=== PATIENT | female | born 1940 | race Caucasian/White ===

== ENCOUNTER 2018-02-01 15:40 | Emergency (ER) | payer MEDICARE, SELFPAY ==
[2018-02-01 15:42] VITALS: BP 210/100; PULSE 83; RESP 17; TEMP 37; O2SAT 97; BMI 40.8
--- NOTE | 2018-02-01 16:09 | EKG12_ITS ---
Test Reason : CHESTPAIN Blood Pressure : / mmHG Vent. Rate : 077 BPM Atrial Rate : 077 BPM P-R Int : 168 ms QRS Dur : 078 ms QT Int : 380 ms P-R-T Axes : 035 011 001 degrees QTc Int : 430 ms Normal sinus rhythm Normal ECG Confirmed by HEMA ACOSTA, UMM ([id number]), content editor YAS WEAVER ([id number]) on 02/04/2018 3:12:34 PM Referred By: Confirmed By:UMM GARRIDO MD
[2018-02-01 16:15] VITALS: O2SAT 98
[2018-02-01] MEDS: hydrALAZINE 20 MG/ML Vial 10 MG IV (16:23)
--- NOTE | 2018-02-01 16:23 | ED.DCSUM_ITS ---
- ER Visit Summary Date of Service: 02/01/18 Chief Complaint: Chest pain History of Present Illness: The patient is a 77 F who states that she has had intermittent left-sided chest pain for several weeks. She describes it as occasionally burning and sharp radiating into the left shoulder down the arm. Sometimes into the back. When it peaks in its intensity it makes her chest sore to touch. She states that today she needed to babysit her great grandchildren and needed to be there at 0530 hours. She states it is very stressful for her. She states all of her daughter who could relieve her she try to get hold of her granddaughter eventually came to the house and got the kids states that she yelled at her for coming to get her children. Since coming to the emergency department she notes she has been very tearful and the pain has gotten better. She tells me she is worked 19 of the last 21 days. She states that she typically has to get up at 3 AM and does not get home again until almost 8 or 9 at night. She was very concerned about this pain because she lives alone. She has had prior stress testing in 2014 and 2016. Recently diagnosed with some aortic stenosis on echo. Physical Examination: Afebrile noted hypertension 210/100 Gen: Well-nourished well-developed obese Head: Normocephalic atraumatic Eyes: Perrl EOMI ENT: TMs clear no rhinorrhea moist mucous membranes Neck: Supple no lymphadenopathy no JVD nontender CVS: Regular rate rhythm no murmurs normal S1-S2 Respiratory: No distress clear to auscultation bilaterally anterior left chest wall tenderness which she states is similar to some of the discomfort she was having. Abdomen: Soft nontender nondistended normal bowel sounds no masses Back: Nontender Extremity: Nontender no edema Skin: Normal color no rash Neuro: alert orientated ?3 CN II-XII intact normal strength sensation reflexes gait cerebellar Psych: Tearful and upset Test Results: EKG showed a normal sinus rhythm that appears unchanged from June 30, 2016. CBC BMP negative. Troponin [address] Bhavya of the chest was negative for PE or dissection. Emergency Department Course and Treatment: UNIQUE score 2. Patient received hydralazine for hypertension. Blood pressure is down to 158/72. She feels significantly better. I advised her that she needs to take time for herself this weekend and rest. I advised her to avoid stressful situations and do things that would be relaxing to her. I have asked that she follow-up with her doctor next week. Please return if worsening or concerns Impression: 1. Hypertensive urgency 2. Chest pain This note was generated with [employer] dictation software. It may contain incorrect words, spelling, and punctuation that were not noted in review of the chart prior to signing ED Disposition - Plan for ED Patient: Chief Complaint: Chest Pain Instructions: ED Chest Pain Atypical Unkn Cause, ED Hypertension Conf Out Of Control Referrals: Arturo Marie MD [Primary Care Provider] - As soon as possible Additional Instructions: You need to take time for yourself and get plenty of rest this weekend. You need to do things that are relaxing to help your blood pressure.
[2018-02-01 16:24] LABS: Absolute Lymphocyte Count 2.25 X10^3/ul (0.83-4.51); Absolute Neutrophil Count 4.4 X10^3/uL (2.0-7.7); Basophil# 0.06 X10^3/uL; Basophil% 0.8 % (0-1); Eosinophil# 0.32 X10^3/uL; Eosinophils% 4.2 % (0-5); Hematocrit 43.9 % (37-47); Hemoglobin 14.2 g/dl (12.0-15.0); Lymphocyte # 2.25 X10^3/ul (4.0); Lymphocyte % 29.4 % (19-41); Mean Corp Hgb Conc 32.3 g/gl (32-36); Mean Corpuscular Hgb 31.8 pg (27.0-32.0); Mean Corpuscular Volume 98.2 fL (81-99); Mean Platelet Vol. 10.7 fl (6.2-12.0); Monocyte# 0.64 X10^3/uL; Monocyte% 8.4 % (0-10); Neutrophil # 4.38 X10^3/uL (2.7-7.7); Neutrophil % 57.1 % (47-70); Platelet Count 201 K/mm3 (150-450); RBC Distribution Width CV 13.4 % (11.6-14.6); RBC Distribution Width SD 47.8 fl (35.1-43.9); Red Blood Count 4.47 M/mm3 (4.2-5.4); White Blood Count 7.7 K/mm3 (4.4-11.0)
--- NOTE | 2018-02-01 16:25 | RAD_ITS ---
STUDY: X-RAY CHEST REASON FOR EXAM: Female, 77 years old. Chest pain TECHNIQUE: A single frontal view of the chest was obtained. COMPARISON: July 02, 2016 FINDINGS: The lungs are adequately aerated. There are no focal airspace opacities. There is no demonstrated pleural abnormality. There is borderline enlargement of the cardiac silhouette. The mediastinum and hilar regions are unremarkable. Normal visualized pulmonary arteries. There is atherosclerotic calcification of the thoracic aorta. There are diffuse degenerative changes of the visualized spine. There are degenerative changes in both shoulders. There is a probable hiatal hernia. RAD/Chest 1 View (Portable) IMPRESSION: There is borderline enlargement of the cardiac silhouette without pulmonary edema or pleural effusion. Electronically Signed: Bettye Leonardo MD at 17:51 EDT Tel Direct: [phone], Service support ,
[2018-02-01 16:26] LABS: POSITIVE COUNT NO; POSITIVE DIFFERENTIAL NO; POSITIVE MORPHOLOGY NO
[2018-02-01 16:40] LABS: Anion Gap 8 (5-15); BUN 19 mg/dL (7-18); BUN/Creat Ratio 18.3 RATIO (10-20); Calcium,Total 9.1 mg/dL (8.5-10.1); Chloride 104 mmol/L (98-107); Creatinine, Serum 1.04 mg/dL (0.55-1.02); EST Glomerular Filtration Rate 55 mL/min (>60); Est Glom Filt Rate - Afr Amer 66 mL/min (>60); Estimated Creatinine Clearance 43.75 ml/min; Glucose 193 mg/dL (74-106); Potassium 3.8 mmol/L (3.5-5.1); Sodium Level 141 mmol/L (136-145)
[2018-02-01 16:42] VITALS: BP 172/87; PULSE 71; RESP 14; O2SAT 97
--- NOTE | 2018-02-01 16:56 | CT_ITS ---
STUDY: CTA CHEST REASON FOR EXAM: Female, 77 years old. Left shoulder and chest pain RADIATION DOSAGE (If Supplied By Facility): CTDIvol = ( 14.63 ) mGy, DLP = ( 624.62 ) mGycm TECHNIQUE: The examination was performed with the intravenous administration of 100ML ml of Isovue 370 contrast material. Post-processing of the angiographic images was performed, with multiplanar reformation and 3D reconstruction. Individualized dose optimization techniques were used for this CT. COMPARISON: None. FINDINGS: Unremarkable thyroid Normal enhancement of the main pulmonary artery and right and left pulmonary arteries. Normal enhancement of the bilateral peripheral pulmonary arteries. There is no demonstrated pulmonary embolism. Normal thoracic aorta and visualized great vessels. There is no demonstrated aortic dissection. Normal heart and pericardium. Normal mediastinum. Normal hilar regions. Normal visualized trachea and bronchi. The lungs are well expanded. Normal pulmonary parenchyma. Normal pleura. Lungs are clear Normal chest wall structures. Normal osseous structures. Normal visualized upper abdomen. CT/CTA Chest W/WO Contrast IMPRESSION: Normal CTA chest examination, without a demonstrated pulmonary embolism or arterial dissection. Lungs are clear. Electronically Signed: Dante Ibarra DO at 17:57 EDT Tel , Service support ,
[2018-02-01 17:17] VITALS: BP 157/71
[2018-02-01 18:05] VITALS: BP 152/74; PULSE 72; RESP 19; O2SAT 98
[2018-02-01 18:32] VITALS: BP 166/72; PULSE 74; RESP 18; O2SAT 97
--- NOTE | 2018-02-01 18:33 | ED.RN ---
PT GIVEN WRITTEN AND VERBAL DISCHARGE INSTRUCTIONS AND HOME GOING PRESCRIPTIONS. PT VERBALIZES UNDERSTANDING AND DENIES ANY FURTHER QUESTIONS. PT IV D/C AND COVERED WITH 2X2 GAUZE DRESSING AND PAPER TAPE. PT DRESSES SELF AND AMBULATES OUT OF DEPT. SECURITY TO BRING PT CAR UP THE RAMP.
--- NOTE | 2018-02-01 19:14 | ED.RN ---
pt educated to be re-evaluated for any new or worsened sx. pt verbalizes understanding.
== END 2018-02-01 18:37 | disposition home or self-care (01) ==
LOC: ED 16:25
PROVIDERS: Emergency Provider Emergency Medicine; Family Provider Family Medicine; PCP Family Medicine
DX: I16.0 Hypertensive urgency (principal); R07.9 Chest pain, unspecified; I10 Essential (primary) hypertension; E11.9 Type 2 diabetes mellitus without complications; I35.0 Nonrheumatic aortic (valve) stenosis; E66.9 Obesity, unspecified; Z79.84 Long term (current) use of oral hypoglycemic drugs; Z79.899 Other long term (current) drug therapy
CPT/HCPCS: 71045; 71275; 80048; 84484; 85025; 93005; 96361; 96374; 99284; J7040; Q9967; A4216

== ENCOUNTER 2018-02-24 16:08 | Emergency (ER) | payer MEDICARE, SELFPAY ==
[2018-02-24 16:10] VITALS: BP 167/94; PULSE 101; RESP 16; TEMP 36.7; O2SAT 96; BMI 40.0
--- NOTE | 2018-02-24 16:25 | RAD_ITS ---
STUDY: X-RAY - LEFT TIBIA AND FIBULA REASON FOR EXAM: Female, 78 years old. Trauma TECHNIQUE: 4 view(s) of the tibia and fibula were obtained. COMPARISON: None. FINDINGS: Normal visualized tibia. Normal visualized fibula. The soft tissue structures are unremarkable. RAD/Tibia & Fibula 2 Views IMPRESSION: Normal x-ray examination of the tibia and fibula. Electronically Signed: Zaire Hernandez MD at 17:06 EST , Service support ,
--- NOTE | 2018-02-24 16:26 | ED.DCSUM_ITS ---
- ER Visit Summary Date of Service: 02/24/18 Chief Complaint: Left knee injury History of Present Illness: The patient is a 78 F who tripped and fell on a step when try to take her trash out. She landed on her left knee. Paramedics who were at the scene for another patient helped her up. She was able to drive herself here. She is able to ambulate but has a slight limp. She denies striking her head. She has no neck or back pain. She denies pain at her hip. Physical Examination: Blood pressure is 167/94, otherwise vitals normal. Patient sitting upright in bed no acute distress. She is alert and talkative. Head neck examination was no C-spine tenderness. Heart is regular rate and rhythm. Lung sounds are clear. Abdomen is soft nontender. Lower extreme examination reveals superficial abrasions to the anterior left knee. She has good range of motion. There is mild tenderness of the proximal anterior tibia. Strong distal pulses are noted with good sensation. Test Results: Left tib-fib x-rays are unremarkable. Emergency Department Course and Treatment: Patient states she does have a cane at home that she can use if she needs it. At this time she will be discharged home. Follow with the primary care physician in 5-7 days if not improving. Treatment Plan: [] Disposition: Discharge Impression: 1. Mechanical fall 2. Left leg contusion This note was generated with [employer] dictation software. It may contain incorrect words, spelling, and punctuation that were not noted in review of the chart prior to signing ED Disposition - Plan for ED Patient: Chief Complaint: Lower Extremity Injury Referrals: Arturo Marie MD [Primary Care Provider] -
--- NOTE | 2018-02-24 17:50 | ED.DEP ---
ED Disposition - Plan for ED Patient: Disposition: Home or Assisted Living Chief Complaint: Lower Extremity Injury Instructions: ED Contusion Lower Ext Referrals: Arturo Marie MD [Primary Care Provider] - 5-7 Days
[2018-02-24 17:56] VITALS: BP 142/78; PULSE 81; RESP 16; O2SAT 98
== END 2018-02-24 17:57 | disposition home or self-care (01) ==
PROVIDERS: Emergency Provider Emergency Medicine; Family Provider Family Medicine; PCP Family Medicine
DX: S80.12XA Contusion of left lower leg, initial encounter (principal); W10.9XXA Fall (on) (from) unspecified stairs and steps, initial encounter; Y93.E9 Activity, other interior property and clothing maintenance; Y92.9 Unspecified place or not applicable; Y99.9 Unspecified external cause status; Y92.009 Unspecified place in unspecified non-institutional (private) residence as the place of occurrence of the external cause; E11.9 Type 2 diabetes mellitus without complications; I10 Essential (primary) hypertension; K21.9 Gastro-esophageal reflux disease without esophagitis; Z79.84 Long term (current) use of oral hypoglycemic drugs; Z79.899 Other long term (current) drug therapy
CPT/HCPCS: 73590; 99282

== ENCOUNTER 2018-04-01 14:57 | Observation (INO) | payer MEDICARE, SELFPAY ==
[2018-04-01] VITALS (17 sets, daily range): BP systolic 145–204; BP diastolic 69–110; PULSE 62–123; RESP 12–22; TEMP 36.1–36.7; O2SAT 94–99; BMI 39.9; BMI 39.0; BMI 39.1
--- NOTE | 2018-04-01 15:23 | EKG12_ITS ---
Test Reason : CP Blood Pressure : / mmHG Vent. Rate : 092 BPM Atrial Rate : 092 BPM P-R Int : 174 ms QRS Dur : 076 ms QT Int : 390 ms P-R-T Axes : 048 021 025 degrees QTc Int : 482 ms Normal sinus rhythm Normal ECG Confirmed by VALENTE ACOSTA, ROBIN ([id number]), primer expeditor and drier YAS WEAVER ([id number]) on 04/05/2018 2:46:47 PM Referred By: Arvin Joshua Confirmed By:ROBIN VICTOR MD
--- NOTE | 2018-04-01 15:25 | ED.VISSUMM ---
- ER Visit Summary Date of Service: 04/01/18 Chief Complaint: Chest pain History of Present Illness: The patient is a 78 F presenting with chest pain and left arm pain. Patient states this started on Sunday. Pain has been intermittent. She states it worsens with exertion. Today she went to the store and had worsening pain when she tried to walk around. She has associated shortness of breath. She denies diaphoresis or nausea. She has a history of diabetes, hypertension. She called the on-call nurse for her primary care physician and was advised to come to the ED for evaluation. Physical Examination: Blood pressure 204/110, temperature 97.7, heart rate 123, respiratory rate 20. Pulse ox 94% on room air. HEENT exam is unremarkable. Neck is supple. Lungs are clear and equal bilaterally. Heart is regular and tachycardic Abdomen is soft nontender nondistended. Extremities symmetric edema Skin is warm and dry. No focal neurologic deficit. Remainder of exam is unremarkable. Emergency Department Course and Treatment: Patient was given aspirin, morphine, Zofran. EKG is sinus rate 96. Chest x-ray shows no acute process. CBC unremarkable. Chemistries show glucose 330, BUN 26, creatinine 1.12. Troponin 0.026. Patient was given nitro sublingual with improvement of her pain. Will discuss with hospitalist for admission. Disposition: Observation Impression: Chest pain This note was generated with [employer] dictation software. It may contain incorrect words, spelling, and punctuation that were not noted in review of the chart prior to signing ED Disposition - Plan for ED Patient: Chief Complaint: Upper Extremity Injury Referrals: Arturo Marie MD [Primary Care Provider] -
--- NOTE | 2018-04-01 15:37 | RAD_ITS ---
STUDY: X-RAY CHEST REASON FOR EXAM: Female, 78 years old. Left chest and arm pain TECHNIQUE: Single AP portable view of the chest. COMPARISON: None. FINDINGS: There are interstitial fibrotic changes of the lungs. There is no demonstrated pleural abnormality. Normal size heart. Normal mediastinum and danielle. Normal visualized pulmonary arteries. There is atherosclerotic calcification of the aortic arch with tortuosity. Normal visualized thoracic spine. Normal visualized ribs, clavicles, and shoulders. There is no demonstrated abnormality of the visualized soft tissue structures of the upper abdomen. RAD/Chest 1 View (Portable) IMPRESSION: No acute pulmonary process Electronically Signed: Erick Mart MD at 15:51 EST , Service support ,
[2018-04-01] MEDS: Aspirin 81 MG TAB.CHEW 324 MG PO (16:08)
[2018-04-01 16:18] LABS: Absolute Lymphocyte Count 1.97 X10^3/ul (0.83-4.51); Absolute Neutrophil Count 4.1 X10^3/uL (2.0-7.7); Basophil# 0.05 X10^3/uL; Basophil% 0.7 % (0-1); Eosinophil# 0.15 X10^3/uL; Eosinophils% 2.2 % (0-5); Hemoglobin 13.9 g/dl (12.0-15.0); Lymphocyte # 1.97 X10^3/ul (4.0); Lymphocyte % 29.3 % (19-41); Mean Corp Hgb Conc 33.9 g/gl (32-36); Mean Corpuscular Hgb 32.6 pg (27.0-32.0); Mean Platelet Vol. 10.7 fl (6.2-12.0); Monocyte# 0.48 X10^3/uL; Monocyte% 7.1 % (0-10); Neutrophil # 4.06 X10^3/uL (2.7-7.7); Neutrophil % 60.4 % (47-70); Platelet Count 196 K/mm3 (150-450); RBC Distribution Width CV 12.8 % (11.6-14.6); RBC Distribution Width SD 44.2 fl (35.1-43.9); Red Blood Count 4.27 M/mm3 (4.2-5.4); White Blood Count 6.7 K/mm3 (4.4-11.0)
[2018-04-01 16:19] LABS: POSITIVE COUNT NO; POSITIVE DIFFERENTIAL NO; POSITIVE MORPHOLOGY NO
[2018-04-01 16:29] LABS: Anion Gap 8 (5-15); BUN 26 mg/dL (7-18); BUN/Creat Ratio 23.2 RATIO (10-20); Calcium,Total 9.3 mg/dL (8.5-10.1); Chloride 102 mmol/L (98-107); Creatinine, Serum 1.12 mg/dL (0.55-1.02); EST Glomerular Filtration Rate 50 mL/min (>60); Est Glom Filt Rate - Afr Amer 61 mL/min (>60); Glucose 330 mg/dL (74-106); Potassium 3.6 mmol/L (3.5-5.1); Sodium Level 140 mmol/L (136-145)
--- NOTE | 2018-04-01 19:06 | PCM.HP.STD ---
Problem List (1) Chest pain Status: Acute History of Present Illness Date of Admission: 04/01/18 Chief Complaint: chest pain The patient is a 78 year old F with a significant history of hypertension; diabetes mellitus; GERD; hiatal hernia, history of esophageal spasms, morbid obesity, aortic valve stenosis who presented with 3-day history of progressively worsening continuous sharp left-sided chest pain that radiated to her left arm and to her left side. She reports that on the day of admission she went to grocery shop and while there her chest pain was excruciating to the point that she had to call her PCPs office. The nurse at the PCPs office advised her to come to the emergency department for further evaluation. Associated with her chest pain is shortness of breath with exertion. Her chest pain increased with exertion. She reports that she took ibuprofen on a previous day which help with her chest pain. But the chest pain progressed ibuprofen did not give her any relief. Patient reports that she was here in January 2017 and treadmill stress test was tried. However because of her arthritis she cannot run fast enough for the peak heart rate that was needed. For this reason the treadmill stress test was converted to a chemical stress test. Her initial blood pressure at emergency department was 204/110. Patient received nitroglycerin that improved her chest pain and brought her systolic blood pressure to 163. And a diastolic blood pressure to 82. She reports that she has aortic valve stenosis and 2 leaky valves and she follows up with Dr. Sanchez political analyst. She reported that her last echocardiogram was about a year and a half ago. Past Medical History Past Medical History (Chronic Problems): Chronic Problems (Last Reviewed 04/01/18 @ 20:02 by Arvin Joshua MD) Diabetes mellitus (Chronic) Esophageal spasm (Chronic) GERD (gastroesophageal reflux disease) (Chronic) HTN (hypertension) (Chronic) Dyslipidemia (Chronic) Hiatal hernia (Chronic) Medical History: Medical History (Last Reviewed 04/01/18 @ 20:02 by Arvin Joshua MD) Thrombocytopenia (Resolved) D69.6 Metabolic acidosis (Resolved) E87.2 Hypokalemia (Resolved) E87.6 Gastroenteritis (Acute) K52.9 Diabetes mellitus (Chronic) E11.9 Esophageal spasm (Chronic) GERD (gastroesophageal reflux disease) (Chronic) K21.9 HTN (hypertension) (Chronic) I10 Dyslipidemia (Chronic) E78.5 Hiatal hernia (Chronic) K44.9 Acute kidney injury (Resolved) N17.9 Allergies celecoxib [From Celebrex] Allergy (Verified 04/01/18 15:01) Unknown codeine Allergy (Verified 04/01/18 15:01) Unknown niacin Allergy (Verified 04/01/18 15:01) Unknown Penicillins Allergy (Verified 04/01/18 15:01) Unknown prednisone Allergy (Verified 04/01/18 15:01) Unknown Sulfa (Sulfonamide Antibiotics) Allergy (Verified 04/01/18 15:01) Unknown Home Medications: Ambulatory Orders Medication Instructions Recorded Lisinopril [Zestril] 40 mg PO DAILY 01/28/13 glimepiride 4 mg tablet 4 mg PO BID tab 07/05/17 metformin 500 mg tablet 500 mg PO UD tab 07/05/17 Furosemide [Lasix] 80 mg PO DAILY PRN 02/01/18 Acetaminophen [Tylenol Extra 1,000 mg PO PRN PRN 04/01/18 Strength] Cholecalciferol (Vitamin D3) 4,000 unit PO DAILY 04/01/18 [Vitamin D3] Hydrochlorothiazide [Hctz] 25 mg PO DAILY 04/01/18 Ibuprofen 200 mg PO PRN PRN 04/01/18 Metoprolol Succinate [Toprol Xl] 25 mg PO DAILY 04/01/18 Surgical History: Surgical History (Last Reviewed 04/01/18 @ 20:02 by Arvin Joshua MD) History of laparoscopic cholecystectomy Z90.49 History repair broken nose history ORIF left wrist Surgical History: cholecystectomy, tonsillectomy Psychiatric History: No pertinent psych hx [employer]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 Lives: Alone Smoking Status: Never smoker Alcohol: None - *Family History Paternal Family History: Family History (Last Reviewed 04/01/18 @ 20:02 by Arvin Joshua MD) Mother Asthma Father Heart disease Hypertension Arthritis History Items: Dementia Sibling Family History: Family History (Last Reviewed 04/01/18 @ 20:02 by Arvin Joshua MD) Mother Asthma Father Heart disease Hypertension Arthritis History Items: Diabetes Maternal Family History: Family History (Last Reviewed 04/01/18 @ 20:02 by Arvin Joshua MD) Mother Asthma Father Heart disease Hypertension Arthritis History Items: Unknown Review of Systems Constitutional: Denies: Chills, Fever, Weight Change HEENT: Denies: Head Aches, Sinus Congestion, Sinus Drainage Cardiovascular: Reports: Chest Pain. Denies: Palpitations Respiratory: Reports: Shortness of breath upon exertion. Denies: Cough, Sputum production Gastrointestinal: Denies: Abdominal Pain, Nausea, Vomiting Genitourinary: Denies: Dysuria Musculoskeletal: Reports: Arm Pain - Left arm. Denies: Joint Pain, Joint Tenderness Skin: Denies: Rash, Wounds Neurological: Denies: Numbness, Tingling, Focal weakness Psychiatric: Denies: Anxiety, Depression, Homicidal Ideations, Suicidal Ideations Hematologic/ Lymphatic: Denies: Easy Bruising, Easy Bleeding VTE Information - Inpt Only VTE Present on Admission: No VTE Mechan Device Prophylaxis: None VTE Pharm Prophylaxis ordered?: Yes Patient Problems: Active and Suspected Problems (Last Reviewed 04/01/18 @ 20:02 by Arvin Joshua MD) Chest pain (Acute) - Physical Exam General: Alert, Oriented x3, Cooperative HEENT: Atraumatic, PERRLA, EOMI, Normocephalic Neck: Supple, No JVD, Negative Carotid Bruits Lungs: Clear to auscultation, Normal air movement, - - Tenderness of left chest. Cardiovascular: Regular rate, No murmurs Abdomen: Bowel Sounds Present, Soft, Non Tender Extremities: No edema, Capillary Refill Less than 3 Seconds Skin: No rashes, No breakdown Musculoskeletal: No Tenderness to Palpation of Joints or Extremities Neurological: Cranial nerves II-XII grossly intact Psych/Mental Status: Normal Affect, Appropriate Vital Signs Temp Pulse Resp BP Pulse Ox 97.7 F L 82 12 151/74 H 94 04/01/18 14:57 04/01/18 17:17 04/01/18 17:17 04/01/18 17:17 04/01/18 17:17 Oxygen Flow Rate (L/min) 99 Oxygen Delivery Method Room Air Weight: 112.037 kg Body Mass Index (BMI) 39.9 Laboratory Tests Past 24 Hrs 04/01/18 04/01/18 15:45 15:45 WBC 6.7 RBC 4.27 Hgb 13.9 Hct 41.0 MCV 96.0 MCH 32.6 H MCHC 33.9 RDW 12.8 RDW Differential 44.2 H Plt Count 196 MPV 10.7 Immature Gran % (Auto) 0.300 Neut % (Auto) 60.4 Lymph % (Auto) 29.3 [place] % (Auto) 7.1 Eos % (Auto) 2.2 Baso % (Auto) 0.7 Absolute Neuts (auto) 4.1 Absolute Lymphs (auto) 1.97 Total Counted Not Reportable Sodium 140 Potassium 3.6 Chloride 102 Carbon Dioxide 30.0 Anion Gap 8 BUN 26 H Creatinine 1.12 H Estim Creat Clear Calc 40.00 Est GFR (MDRD) Af Amer 61 Est GFR (MDRD) Non-Af 50 L BUN/Creatinine Ratio 23.2 H Glucose 330 H Calcium 9.3 Troponin I 0.026 Assessment/Plan All Active Problems (Last Reviewed 04/01/18 @ 20:02 by Arvin Joshua MD) Chest pain (Acute) Thrombocytopenia (Resolved) Metabolic acidosis (Resolved) Hypokalemia (Resolved) Gastroenteritis (Acute) Acute kidney injury (Resolved) The patient is a 78 year old F with a significant history of hypertension; diabetes mellitus; GERD; aortic valve stenosis; 'leaky heart valves' who presented with 3-day history of progressively worsening continuous sharp left-sided chest pain that radiated to her left arm and to her left side and found to have severely elevated blood pressure. Chest pain Differential diagnosis of her chest pain include angina, unstable angina, hypertensive emergency, aortic valve stenosis Admit to a monitored bed on PCU CXR independently reviewed confirms no acute cardiopulmonary process. EKG independently reviewed confirms sinus tachycardia Patient received aspirin 325 mg at emergency department. ASA 81 mg p.o. daily SL NTG 0.4 mg prn as needed for chest pain Morphine as needed for pain Stat EKG as needed for chest pain Patient has a UNIQUE score of 3. If serial cardiac enzymes are negative will do a chemical stress test. We will keep patient n.p.o. for test. We will do an echocardiogram to evaluate the heart valves. Order to obtain old records from Dr. Sanchez's office. But importantly tomorrow (04/02 2018) is a holiday and office might not be obtained. Metoprolol and lisinopril continued. PT/INR in a.m. Fasting lipids ordered High intensity statin started. Hypertension Emergency On admission her blood pressure was 204/110 and she had chest pain. Received nitroglycerin that brought her blood pressure down. Continue home metoprolol, hydrochlorothiazide, Lasix and lisinopril. Trend blood pressures and adjust blood pressure medication Diabetes mellitus On admission blood glucose was not within goal. Glipizide continued. We will stop metformin since it is too early in admission. Fingerstick blood sugars and correction scale insulin added. DVT prophylaxis Subcutaneous heparin. Code Visit OBSV E&M: 51126 Initial observation care L3
--- NOTE | 2018-04-01 19:49 | ECHOCS_ITS ---
Reason For Study: Chest Pain Procedure This was a 2D Doppler, Color Flow transthoracic echocardiogram. The study was technically difficult. Contrast injection was performed. Exam performed in department. Left Ventricle Normal LV size. Sigmoid septum. Left ventricular systolic function is normal. The estimated ejection fraction is 60 %. No regional wall motion abnormalities noted. Right Ventricle Normal RV size. Normal systolic function. Atria The left atrium is mildly enlarged. Normal right atrium. No doppler evidence for ASD. Mitral Valve There is no mitral annular calcification. Normal mitral valve. Mild (1+) mitral valve insufficiency. Tricuspid Valve Normal tricuspid valve. Trivial tricuspid valve insufficiency. Right ventricular systolic pressure estimated to be 29 mmHg. Aortic Valve Trisinus/trileaflet aortic valve. Mild focal aortic valve calcification. Trivial aortic valve insufficiency. Pulmonic Valve The pulmonic valve is not well visualized. Great Vessels Normal sized aortic root. Pericardium/Pleural No pericardial effusion. Medication Diluted definity 4ml given slow IV push to enhance endocardial definition. MMode/2D Measurements & Calculations LVIDd: 4.2 cm IVSd: 1.9 cm LVOT diam: 2.0 cm LVIDs: 2.6 cm LVPWd: 1.2 cm RVDd: 3.1 cm FS: 38.8 % LVOT area: 3.0 cm2 Ao root diam: 3.0 cm LAV(MOD-bp): 81.2 ml LVAd ap4: 31.3 cm2 LAV(MOD-bp) Indexed: 37.4 ml/m2 EDV(MOD-sp4): 101.5 ml LAV(MOD-sp2): 86.7 ml EDV(sp4-el): 105.8 ml LAV(MOD-sp4): 67.1 ml LVAs ap4: 15.2 cm2 ESV(MOD-sp4): 30.5 ml ESV(sp4-el): 30.4 ml EF(MOD-sp4): 70.0 % EF(sp4-el): 71.3 % SV(MOD-sp4): 71.0 ml SV(sp4-el): 75.4 ml LA A4 area: 22.5 cm2 RA A4 area: 15.0 cm2 Time Measurements MV dec time: 0.22 sec Doppler Measurements & Calculations MV E max shay: 75.0 cm/sec Lat Peak E' Shay: 6.5 cm/sec Med Peak E' Shay: 8.3 cm/sec MV A max shay: 70.1 cm/sec E/E' lat: 11.5 E/E' med: 9.1 MV E/A: 1.1 MV V2 max: 108.8 cm/sec MV P1/2t max shay: 109.8 cm/sec Ao V2 max: 221.3 cm/sec MV max P.7 mmHg MV P1/2t: 61.1 msec Ao max P.6 mmHg MV V2 mean: 57.1 cm/sec MV dec slope: 526.5 cm/sec2 Ao V2 mean: 142.4 cm/sec MV mean P.6 mmHg MVA(P1/2t): 3.6 cm2 Ao mean P.7 mmHg MV V2 VTI: 27.0 cm Ao V2 VTI: 53.4 cm MVA(VTI): 3.6 cm2 JACEY(I,D): 1.8 cm2 JACEY(V,D): 1.6 cm2 AI max shay: 443.0 cm/sec LV V1 max: 113.8 cm/sec SV(LVOT): 96.0 ml AI max P.5 mmHg LV V1 max P.2 mmHg LV V1 mean P.0 mmHg AI dec slope: 245.6 cm/sec2 LV V1 mean: 81.0 cm/sec AI P1/2t: 528.2 msec LV V1 VTI: 31.5 cm PA V2 max: 148.3 cm/sec TR max shay: 256.0 cm/sec TR max P.2 mmHg Interpretation Summary The study was technically difficult. Contrast injection was performed. Left ventricular systolic function is normal. The estimated ejection fraction is 60 %. Sigmoid septum. The left atrium is mildly enlarged. Mild (1+) mitral valve insufficiency. Trivial tricuspid valve insufficiency. Mild focal aortic valve calcification. Trivial aortic valve insufficiency. Right ventricular systolic pressure estimated to be 29 mmHg. Transmitral diastolic flow velocities suggest diastolic dysfunction (pseudonormal pattern). Ordering Physician: Arvin Joshua Referring Physician: Arvin Joshua Performed By: Geovani Greenwood RCS
--- NOTE | 2018-04-01 19:49 | EKG12_ITS ---
Test Reason : Blood Pressure : / mmHG Vent. Rate : 096 BPM Atrial Rate : 096 BPM P-R Int : 156 ms QRS Dur : 098 ms QT Int : 360 ms P-R-T Axes : 037 013 018 degrees QTc Int : 454 ms Normal sinus rhythm Nonspecific ST and T wave abnormality Abnormal ECG Confirmed by VALENTE ACOSTA, ROBIN ([id number]), video news editor YAS WEAVER ([id number]) on 04/04/2018 1:35:43 PM Referred By: Arvin Joshua Confirmed By:ROBIN VICTOR MD
[2018-04-01] MEDS: Ondansetron 4 MG/2 ML Vial IV (20:14)
[2018-04-01] MEDS: Morphine 2 MG/ML Syringe IV (20:14)
[2018-04-01] MEDS: Heparin Injection (Vial) 5,000 UNIT/ML VIAL 5000 UNIT SC (22:55)
[2018-04-01] MEDS: Atorvastatin Calcium 80 MG Tablet PO (22:55)
--- NOTE | 2018-04-01 22:59 | EKG12_ITS ---
Test Reason : CP Blood Pressure : / mmHG Vent. Rate : 063 BPM Atrial Rate : 063 BPM P-R Int : 156 ms QRS Dur : 096 ms QT Int : 432 ms P-R-T Axes : 031 014 027 degrees QTc Int : 442 ms Normal sinus rhythm Normal ECG Confirmed by VALENTE ACOSTA, ROBIN ([id number]), editorial specialist YAS WEAVER ([id number]) on 04/05/2018 2:46:15 PM Referred By: Arvin Joshua Confirmed By:ROBIN VICTOR MD
[2018-04-01] MEDS: Acetaminophen 500 MG Tablet 1000 MG PO (23:13)
[2018-04-01 23:26] LABS: Bedside Glucose 252 mg/dL (70-110)
[2018-04-02] VITALS (17 sets, daily range): BP systolic 119–176; BP diastolic 59–91; PULSE 56–106; RESP 18; TEMP 36.3–36.6; O2SAT 94–99
[2018-04-02 00:26] LABS: Bedside Glucose 255 mg/dL (70-110)
[2018-04-02] MEDS: Insulin Lispro 100 UNIT/ML INSULN.PEN SQ ×3 (00:37→12:13)
[2018-04-02 02:48] LABS: International Normalized Ratio 1.1
[2018-04-02 03:02] LABS: Anion Gap 9 (5-15); BUN 23 mg/dL (7-18); BUN/Creat Ratio 27.1 RATIO (10-20); Calcium,Total 8.7 mg/dL (8.5-10.1); Chloride 104 mmol/L (98-107); Cholesterol 146 mg/dL (200); Creatinine, Serum 0.85 mg/dL (0.55-1.02); EST Glomerular Filtration Rate 69 mL/min (>60); Est Glom Filt Rate - Afr Amer 84 mL/min (>60); Estimated Creatinine Clearance 52.71 ml/min; Glucose 233 mg/dL (74-106); High Density Lipoprotein 47 mg/dL; Potassium 3.7 mmol/L (3.5-5.1); Sodium Level 140 mmol/L (136-145); Triglycerides 102 mg/dL; Very Low Density Lipoprotein 20 mg/dL (5-40)
[2018-04-02 07:11] LABS: Bedside Glucose 200 mg/dL (70-110)
[2018-04-02] MEDS: Glimepiride 4 MG Tablet PO ×2 (08:38→17:12)
[2018-04-02] MEDS: Aspirin E.C. 81 MG Tablet PO (08:39)
[2018-04-02] MEDS: Heparin Injection (Vial) 5,000 UNIT/ML VIAL 5000 UNIT SC ×2 (10:30→20:37)
[2018-04-02] MEDS: hydroCHLOROthiazide 25 MG Tablet PO (10:31)
[2018-04-02] MEDS: Metoprolol(XL)Succ 25 MG Tablet PO (10:31)
[2018-04-02] MEDS: Lisinopril 40 MG Tablet PO (10:32)
[2018-04-02 13:16] LABS: Bedside Glucose 266 mg/dL (70-110)
[2018-04-02] MEDS: Acetaminophen 500 MG Tablet 1000 MG PO (14:23)
--- NOTE | 2018-04-02 15:58 | PCM.PROGNOTE ---
Patient Problems: Active and Suspected Problems (Last Reviewed 04/01/18 @ 20:02 by Arvin Joshua MD) Chest pain (Acute) Subjective: Patient was seen and examined today, she does not complain of any shortness of breath or chest discomfort at this time. Patient's enzymes have been negative, she will be scheduled for a pharmacological stress test tomorrow. - Physical Exam General: Alert, Oriented x3, Cooperative, No apparent distress, Well developed HEENT: Atraumatic, PERRLA, EOMI, Normocephalic Oral: Moist Mucosa Neck: Supple, No Nuchal Rigidity, Trachea Midline, Thyroid Normal Size and Texture Lungs: Clear to auscultation, Normal air movement, No rhonchi, No wheeze, No rales Cardiovascular: Regular rate, Regular Rhythm, Normal S1, Normal S2, No murmurs, No Ectopic Activity Abdomen: Bowel Sounds Present, Soft, Non Tender, Non-Distended, No hernias noted Extremities: No clubbing, No cyanosis, No edema, Capillary Refill Less than 3 Seconds Skin: No rashes, No breakdown Musculoskeletal: No Tenderness to Palpation of Joints or Extremities Neurological: Cranial nerves II-XII grossly intact, Neuro grossly intact, Sensory exam intact to light touch and pain, Coordination normal Psych/Mental Status: Normal Affect, Appropriate, Alert and oriented to time, place, person, mood and affect Vital Signs Temp Pulse Resp BP Pulse Ox 97.4 F L 61 18 128/64 H 98 04/02/18 10:30 04/02/18 10:59 04/02/18 10:30 04/02/18 10:31 04/02/18 10:30 Oxygen Flow Rate (L/min) 2 Oxygen Delivery Method Room Air Weight: 109.8 kg Body Mass Index (BMI) 39.0 Intake and Output for Last 24 Hours 03/31/18 04/01/18 04/02/18 23:59 23:59 23:59 Intake Total 1080 / 1080 Balance 1080 / 1080 Laboratory Tests Past 24 Hrs 04/01/18 04/01/18 04/01/18 15:45 15:45 20:08 WBC 6.7 RBC 4.27 Hgb 13.9 Hct 41.0 MCV 96.0 MCH 32.6 H MCHC 33.9 RDW 12.8 RDW Differential 44.2 H Plt Count 196 MPV 10.7 Immature Gran % (Auto) 0.300 Neut % (Auto) 60.4 Lymph % (Auto) 29.3 [place] % (Auto) 7.1 Eos % (Auto) 2.2 Baso % (Auto) 0.7 Absolute Neuts (auto) 4.1 Absolute Lymphs (auto) 1.97 Total Counted Not Reportable PT INR Sodium 140 Potassium 3.6 Chloride 102 Carbon Dioxide 30.0 Anion Gap 8 BUN 26 H Creatinine 1.12 H Estim Creat Clear Calc 40.00 Est GFR (MDRD) Af Amer 61 Est GFR (MDRD) Non-Af 50 L BUN/Creatinine Ratio 23.2 H Glucose 330 H Calcium 9.3 Troponin I 0.026 0.027 Triglycerides Cholesterol LDL Cholesterol VLDL Cholesterol HDL Cholesterol 04/01/18 04/02/18 04/02/18 22:44 02:22 02:22 WBC RBC Hgb Hct MCV MCH MCHC RDW RDW Differential Plt Count MPV Immature Gran % (Auto) Neut % (Auto) Lymph % (Auto) [place] % (Auto) Eos % (Auto) Baso % (Auto) Absolute Neuts (auto) Absolute Lymphs (auto) Total Counted PT INR Sodium 140 Potassium 3.7 Chloride 104 Carbon Dioxide 27.0 Anion Gap 9 BUN 23 H Creatinine 0.85 Estim Creat Clear Calc 52.71 Est GFR (MDRD) Af Amer 84 Est GFR (MDRD) Non-Af 69 BUN/Creatinine Ratio 27.1 H Glucose 233 H Calcium 8.7 Troponin I 0.029 0.032 Triglycerides 102 Cholesterol 146 LDL Cholesterol 79 VLDL Cholesterol 20 HDL Cholesterol 47 04/02/18 02:22 WBC RBC Hgb Hct MCV MCH MCHC RDW RDW Differential Plt Count MPV Immature Gran % (Auto) Neut % (Auto) Lymph % (Auto) [place] % (Auto) Eos % (Auto) Baso % (Auto) Absolute Neuts (auto) Absolute Lymphs (auto) Total Counted PT 14.0 INR 1.1 Sodium Potassium Chloride Carbon Dioxide Anion Gap BUN Creatinine Estim Creat Clear Calc Est GFR (MDRD) Af Amer Est GFR (MDRD) Non-Af BUN/Creatinine Ratio Glucose Calcium Troponin I Triglycerides Cholesterol LDL Cholesterol VLDL Cholesterol HDL Cholesterol POC Glucose 04/02/18 04/02/18 04/02/18 12:11 05:34 00:16 POC Glucose 266 H 200 H 255 H 04/01/18 20:17 POC Glucose 252 H Medical Necessity - Tobacco Use Smoking Status: Never smoker Assessment/Plan All Active Problems (Last Reviewed 04/01/18 @ 20:02 by Arvin Joshua MD) Chest pain (Acute) Thrombocytopenia (Resolved) Metabolic acidosis (Resolved) Hypokalemia (Resolved) Gastroenteritis (Acute) Acute kidney injury (Resolved) #1 chest pain-etiology unclear, patient will undergo a pharmacological nuclear stress test tomorrow, she will undergo an echocardiogram tomorrow #2 essential hypertension #3 type 2 diabetes-continue to monitor blood sugars #4 GERD #5 hyperlipidemia Code Visit OBSV E&M: 75762 Subsequent observation care L2
[2018-04-02 17:21] LABS: Bedside Glucose 136 mg/dL (70-110)
[2018-04-02] MEDS: Atorvastatin Calcium 80 MG Tablet PO (20:37)
--- NOTE | 2018-04-02 22:00 | EKG12_ITS ---
Test Reason : ADMISSION Blood Pressure : / mmHG Vent. Rate : 073 BPM Atrial Rate : 073 BPM P-R Int : 158 ms QRS Dur : 088 ms QT Int : 410 ms P-R-T Axes : 040 014 018 degrees QTc Int : 451 ms Sinus rhythm with occasional Premature ventricular complexes Otherwise normal ECG Confirmed by VALENTE ACOSTA, ROBIN ([id number]), slot editor YAS WEAVER ([id number]) on 04/05/2018 2:47:10 PM Referred By: Arvin Joshua Confirmed By:ROBIN VICTOR MD
[2018-04-03] VITALS (9 sets, daily range): BP systolic 131–147; BP diastolic 70–74; PULSE 64–104; RESP 16–18; TEMP 36.4–36.7; O2SAT 93–99
[2018-04-03 00:16] LABS: Bedside Glucose 137 mg/dL (70-110)
[2018-04-03 04:47] LABS: Hematocrit 38.9 % (37-47); Hemoglobin 12.9 g/dl (12.0-15.0); Mean Corp Hgb Conc 33.2 g/gl (32-36); Mean Corpuscular Hgb 32.4 pg (27.0-32.0); Mean Corpuscular Volume 97.7 fL (81-99); Mean Platelet Vol. 10.4 fl (6.2-12.0); Platelet Count 167 K/mm3 (150-450); RBC Distribution Width CV 13.1 % (11.6-14.6); RBC Distribution Width SD 46.1 fl (35.1-43.9); Red Blood Count 3.98 M/mm3 (4.2-5.4); White Blood Count 5.6 K/mm3 (4.4-11.0)
[2018-04-03 04:48] LABS: Scan Indicated on CBC? Y/N NO
[2018-04-03 04:55] LABS: Partial Thromboplast Time 36.5 Seconds (24.1-36.2); Prothrombin Time (Protime)PT. 13.6 SECONDS (11.7-14.9)
[2018-04-03 05:06] LABS: Anion Gap 8 (5-15); BUN 20 mg/dL (7-18); BUN/Creat Ratio 24.2 RATIO (10-20); Chloride 107 mmol/L (98-107); Creatinine, Serum 0.83 mg/dL (0.55-1.02); EST Glomerular Filtration Rate 71 mL/min (>60); Est Glom Filt Rate - Afr Amer 86 mL/min (>60); Estimated Creatinine Clearance 53.98 ml/min; Glucose 147 mg/dL (74-106); Potassium 3.8 mmol/L (3.5-5.1); Sodium Level 143 mmol/L (136-145)
[2018-04-03] MEDS: Aspirin E.C. 81 MG Tablet PO (05:33)
[2018-04-03] MEDS: Lisinopril 40 MG Tablet PO (05:33)
[2018-04-03] MEDS: 0.9% NaCl Peripheral Flush Adult/Peds IV (05:34)
--- NOTE | 2018-04-03 05:55 | EKG12_ITS ---
Test Reason : AM EKG Blood Pressure : / mmHG Vent. Rate : 072 BPM Atrial Rate : 072 BPM P-R Int : 178 ms QRS Dur : 094 ms QT Int : 428 ms P-R-T Axes : -06 007 009 degrees QTc Int : 468 ms Normal sinus rhythm Minimal voltage criteria for LVH, may be normal variant Borderline ECG Confirmed by VALENTE ACOSTA, ROBIN ([id number]), writer editor YAS WEAVER ([id number]) on 04/05/2018 2:44:51 PM Referred By: Arvin Joshua Confirmed By:ROBIN VICTOR MD
[2018-04-03 06:00] LABS: Bedside Glucose 140 mg/dL (70-110)
--- NOTE | 2018-04-03 10:15 | STRESSREP_ITS ---
Stress Test Report Date: 04/03/2018 Procedure: Pharmacologic stress nuclear imaging study Indications: Chest pain Consent: Per the patient Procedure: The patient underwent pharmacologic (Regadenoson) evaluation with a peak heart rate of 121 beats per minute (84 predicted maximal heart rate) and a peak blood pressure of 148/84 mmHg. The baseline ECG demonstrated sinus rhythm. The peak pharmacologic ECG demonstrated nonspecific ST and T wave abnormality. There was a rare PVC during recovery. There was vague chest discomfort during recovery with spontaneous resolution. The examination was discontinued secondary to completion of protocol. Impression: 1. Pharmacologic (Regadenoson) evaluation 2. Peak pharmacologic ECG with nonspecific ST and T wave abnormality. 3. There was a rare PVC during recovery. 4. Nuclear images pending Myocardial perfusion imaging study: Technique: The patient was injected with 14.8 millicuries of technetium 99m Cardiolite and subsequently rest SPECT Cardiolite nuclear imaging was obtained in the horizontal long, vertical long, and short axis views. The patient underwent pharmacologic (Regadenoson) evaluation with a peak heart rate of 121 beats per minute (84 % percent predicted maximal heart rate) and a peak blood pressure of 148/84 mmHg. The patient was injected with 44.6 millicuries of technetium 99m Cardiolite and subsequently stress SPECT Cardiolite nuclear imaging was obtained in the horizontal long, vertical long, and short axis views. A gated Cardiolite study at peak stress was obtained. Interpretation: Rest and stress SPECT Cardiolite nuclear imaging status post realignment, normalization, and attenuation correction demonstrate of uniform tracer uptake and myocardial perfusion appearing within normal limits. There is end systolic thickening and brightening. The gated Cardiolite study demonstrates myocardial thickening and inward wall motion. The reported LVEF is 71 %. Impression: 1. Rest and stress SPECT Cardiolite nuclear imaging demonstrate relative uniform tracer uptake and myocardial perfusion appearing within normal limits. 2. The gated Cardiolite study reports an LVEF of 71%. This note was generated with [employer] software. It may contain incorrect words, spelling, and punctuation that were not noted in checking the note before signing.
[2018-04-03] MEDS: hydroCHLOROthiazide 25 MG Tablet PO (10:59)
[2018-04-03] MEDS: Glimepiride 4 MG Tablet PO (10:59)
[2018-04-03] MEDS: Metoprolol(XL)Succ 25 MG Tablet PO (11:01)
--- NOTE | 2018-04-03 11:49 | DCINST_ITS ---
- Discharge Diagnoses Current Active Problems: Current Active and Chronic Problems (Last Reviewed 04/01/18 @ 20:02 by Arvin Joshua MD) Chest pain (Acute) You will use the following diet at home:: Calorie/Carbohydrate Controlled (specify 1200, 1400, etc) - 1800 rachid Your food should be the consistency of: Regular Your liquids should be the consistency of: Regular/Thin Discharge Activity: Return to Normal Activity Allergies/Adverse Reactions: Allergies celecoxib [From Celebrex] Allergy (Verified 04/01/18 15:01) Unknown codeine Allergy (Verified 04/01/18 15:01) Unknown niacin Allergy (Verified 04/01/18 15:01) Unknown Penicillins Allergy (Verified 04/01/18 15:01) Unknown prednisone Allergy (Verified 04/01/18 15:01) Unknown Sulfa (Sulfonamide Antibiotics) Allergy (Verified 04/01/18 15:01) Unknown Medications to take at Discharge Lisinopril [Zestril] 40 mg PO DAILY 01/28/13 glimepiride 4 mg tablet 4 mg PO BID tab 07/05/17 metformin 500 mg tablet 500 mg PO UD tab 07/05/17 Furosemide [Lasix] 80 mg PO DAILY PRN 02/01/18 Acetaminophen [Tylenol Extra Strength] 1,000 mg PO PRN PRN 04/01/18 Cholecalciferol (Vitamin D3) [Vitamin D3] 4,000 unit PO DAILY 04/01/18 Hydrochlorothiazide [Hctz] 25 mg PO DAILY 04/01/18 Ibuprofen 200 mg PO PRN PRN 04/01/18 Metoprolol Succinate [Toprol Xl] 25 mg PO DAILY 04/01/18 Primary Care Physician: Arturo Marie MD [Primary Care Provider] - Please follow up with your Primary Care Physician in: in 2 weeks Test Results: Test results from this visit will be discussed in further detail at your follow- up appointment, if applicable.
[2018-04-03 11:51] LABS: Bedside Glucose 161 mg/dL (70-110)
[2018-04-03] MEDS: Insulin Lispro 100 UNIT/ML INSULN.PEN SQ (11:51)
--- NOTE | 2018-04-04 07:57 | DS.PCM_ITS ---
Discharge Date and Diagnosis Date of Admission: 04/01/18 Date of Discharge: 04/03/18 - Primary Discharge Diagnosis #1 musculoskeletal chest pain #2 essential hypertension #3 type 2 diabetes #4 GERD #5 hyperlipidemia - Secondary Discharge Diagnosis Chronic Problems (Last Reviewed 04/01/18 @ 20:02 by Arvin Joshua MD) Diabetes mellitus (Chronic) Esophageal spasm (Chronic) GERD (gastroesophageal reflux disease) (Chronic) HTN (hypertension) (Chronic) Dyslipidemia (Chronic) Hiatal hernia (Chronic) Hospital Course and Treatment Operations: None Procedures: 2-D Echocardiogram, Nuclear stress test Summary of Care Provided: The patient is a 78 year old F who was seen and examined in the emergency room at [facility] with chief complaint of chest pain. She also complained of left arm pain. The chest pain had been intermittent and it worsens with with exertion. Workup in the emergency room included an EKG which showed a normal sinus rhythm at 96, chest x-ray showed no acute process, chemistries were remarkable for a glucose of 330 and BUN of 26. Patient was placed and observation status on PCU, cardiac enzymes were cycled and these remained normal. Patient underwent a pharmacological nuclear stress test which was negative for reversible ischemia. She had an echocardiogram performed which showed no abnormalities. On 04/03/18, patient was seen and examined: On examination she appeared in good health and spirits. Vital signs as documented. Skin warm and dry and without overt rashes. Neck without JVD. Lungs clear. Heart exam notable for regular rhythm, normal sounds and absence of murmurs, rubs or gallops. Abdomen unremarkable and without evidence of organomegaly, masses, or abdominal aortic enlargement. Extremities nonedematous. Neuro: Cranial nerves II through XII are grossly intact, no focal motor deficits were noted, sensation to light touch and pinprick is intact. Psych: Patient is alert and oriented x3, she does not appear anxious or depressed On 04/03/18, patient was seen and examined felt to be in stable condition for discharge home - Physical Exam Vital Signs Temp Pulse Resp BP Pulse Ox 98.0 F 82 18 131/72 H 97 04/03/18 13:50 04/03/18 13:50 04/03/18 13:50 04/03/18 13:50 04/03/18 13:50 Oxygen Flow Rate (L/min) 1 Oxygen Delivery Method Room Air Weight: 109.8 kg Body Mass Index (BMI) 39.0 Intake and Output for Last 24 Hours 04/02/18 04/03/18 04/04/18 23:59 23:59 23:59 Intake Total 1440 / 1440 290 / 290 Balance 1440 / 1440 290 / 290 POC Glucose 04/03/18 11:49 POC Glucose 161 H Discharge Activity: Return to Normal Activity Home Medications: Medications to take at Discharge Lisinopril [Zestril] 40 mg PO DAILY 01/28/13 glimepiride 4 mg tablet 4 mg PO BID tab 07/05/17 metformin 500 mg tablet 500 mg PO UD tab 07/05/17 Furosemide [Lasix] 80 mg PO DAILY PRN 02/01/18 Acetaminophen [Tylenol Extra Strength] 1,000 mg PO PRN PRN 04/01/18 Cholecalciferol (Vitamin D3) [Vitamin D3] 4,000 unit PO DAILY 04/01/18 Hydrochlorothiazide [Hctz] 25 mg PO DAILY 04/01/18 Ibuprofen 200 mg PO PRN PRN 04/01/18 Metoprolol Succinate [Toprol Xl] 25 mg PO DAILY 04/01/18 Primary Care Physician: Arturo Marie MD [Primary Care Provider] - Please follow up with your Primary Care Physician in: in 2 weeks Disposition: Home Minutes spent on discharge:: 32 Patient Condition:: Stable Medical Necessity - Tobacco Use Smoking Status: Never smoker Meaningful Use Info Meaningful Use Diagnoses (Choose all that apply): None applicable Code Visit OBSV E&M: 94673 Observation care discharge
== END 2018-04-03 11:49 | disposition home or self-care (01) ==
LOC: ED 15:48 → PCU 19:19
PROVIDERS: Admitting Provider Hospitalist; Emergency Provider Emergency Medicine; Family Provider Family Medicine; PCP Family Medicine; Referring Provider Hospitalist; Visit Provider Internal Medicine
DX: R07.89 Other chest pain (principal); M79.602 Pain in left arm; R06.02 Shortness of breath; E11.9 Type 2 diabetes mellitus without complications; I10 Essential (primary) hypertension; Z23 Encounter for immunization; K21.9 Gastro-esophageal reflux disease without esophagitis; K44.9 Diaphragmatic hernia without obstruction or gangrene; E66.01 Morbid (severe) obesity due to excess calories; Z68.39 Body mass index [BMI] 39.0-39.9, adult; Z71.3 Dietary counseling and surveillance; M19.90 Unspecified osteoarthritis, unspecified site; I16.1 Hypertensive emergency; E78.5 Hyperlipidemia, unspecified; Z79.899 Other long term (current) drug therapy; Z79.84 Long term (current) use of oral hypoglycemic drugs
CPT/HCPCS: 36415; 71045; 78452; 80048; 80061; 82962; 84484; 85025; 85027; 85610; 85730; 93005; 93017; 93306; 96372; 96374; 96375; 97802; 99218; 99283; 99284; A9500; G0008; Q9957; 90686; A4216; C8929; G0378; J2405; J2785

== ENCOUNTER 2019-12-31 13:50 | Emergency (ER) | payer MEDICARE, SELFPAY ==
[2018-04-01 19:46] VITALS: BMI 39.0
[2019-12-31 13:51] VITALS: BP 135/121; PULSE 91; RESP 15; TEMP 36.4; O2SAT 99; BMI 33.5
--- NOTE | 2019-12-31 14:09 | ED.VIS.GEN ---
History of Present Illness Chief Complaint: Hyperglycemia Informant: Patient Narrative: 79-year-old female presents with lightheadedness. She states she has been feeling this way all day. She describes these as spells. When she stands up she feels lightheaded. She has not fallen. She states that because she felt lightheaded she did not take her blood pressure medicine. She states that she checked her blood sugar and her readings at high. She called her PCPs office who called an ambulance for her to come to the emergency room. She states she is only on oral medication for her diabetes. She does also state that her doctor wished to change her to insulin however she could not afford the co-pay. 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 She states he has follow-up for her valves and many years. She is not have any chest pain. She does state that she feels a little bit confused. - Past Medical History (1) Diabetes mellitus Status: Chronic (2) Dyslipidemia Status: Chronic (3) GERD (gastroesophageal reflux disease) Status: Chronic (4) HTN (hypertension) Status: Chronic Past Medical History - Allergies and Home Meds Allergies/Adverse Reactions: Allergies celecoxib [From Celebrex] Allergy (Verified 12/31/19 13:57) Unknown codeine Allergy (Verified 12/31/19 13:57) Unknown niacin Allergy (Verified 12/31/19 13:57) Unknown Penicillins Allergy (Verified 12/31/19 13:57) Unknown prednisone Allergy (Verified 12/31/19 13:57) Unknown Sulfa (Sulfonamide Antibiotics) Allergy (Verified 12/31/19 13:57) Unknown Primary Care Physician: Arturo Marie MD [Primary Care Provider] - Prior records reviewed: Yes Past Medical History: - - Reviewed in problem list Surgical History: cholecystectomy, tonsillectomy Lives: Alone Smoking Status: Never smoker - Family History Paternal Family History: Family History (Last Reviewed 04/01/18 @ 20:[address] Arvin Joshua MD) Mother Asthma Father Heart disease Hypertension Arthritis Family History: Reports: Dementia Sibling Family History: Family History (Last Reviewed 04/01/18 @ 20:[address] Arvin Joshua MD) Mother Asthma Father Heart disease Hypertension Arthritis Family History: Reports: Diabetes Maternal Family History: Family History (Last Reviewed 04/01/18 @ 20:[address] Arvin Joshua MD) Mother Asthma Father Heart disease Hypertension Arthritis Family History: Reports: Unknown Review of Systems General: Reports: - - Lightheadedness with standing. Denies: Chills, Fever, Sweats Eyes: Denies: Visual changes - bilaterally, Diplopia ENT: Denies: Rhinorrhea, Sore throat Cardiovascular: Reports: Palpitations. Denies: Chest pain, Heart racing Respiratory: Denies: Cough, Sputum Gastrointestinal: Denies: Abdominal pain, Nausea, Vomiting, Diarrhea Genitourinary: Denies: Dysuria, Hematuria Musculoskeletal: Denies: Myalgias, Arthralgias Skin: Denies: Rash, Abscess Neurological: Denies: Parasthesia, Numbness Physical Exam Vital Signs/Narrative: Vital Signs Temp Pulse Resp BP Pulse Ox 12/31/19 13:51 97.6 F L 91 15 135/121 H 99 General: Obese, No Acute Distress Head: Normocephalic, Atraumatic Eyes: Perrl, EOMI ENT: Moist mucous membranes, No rhinorrhea Cardiovascular: Regular rate, Regular rhythm Respiratory: No distress, CTA bilaterally, Chest nontender Abdomen: Soft, Nontender, Nondistended Extremities: Nontender, No edema Skin: Normal color, No rash Neurological: Alert, Oriented x3, Cranial nerves II-XII grossly intact Psychological: Normal affect, Normal Mood Diagnostic/Tx/Re-eval Clinical Impression(s) from Imaging Studies Chest X-Ray 12/31/19 15:03 IMPRESSION: No acute abnormality is seen. Electronically Signed: Raj Bolivar, at 15:20 EDT , Service support , Laboratory Data 12/31/19 12/31/19 12/31/19 14:00 14:00 14:00 WBC 5.3 RBC 4.72 Hgb 15.2 H Hct 45.0 MCV 95.3 MCH 32.2 H MCHC 33.8 RDW Std Deviation 44.8 H RDW Coeff of Eduardo 12.8 Plt Count 182 MPV 11.3 Immature Gran % (Auto) 0.200 Neut % (Auto) 54.5 Lymph % (Auto) 34.5 [place] % (Auto) 8.1 Eos % (Auto) 1.9 Baso % (Auto) 0.8 Absolute Neuts (auto) 2.9 Absolute Lymphs (auto) 1.83 Nucleated RBC % 0 Sodium 128 L Potassium 4.1 Chloride 92 L Carbon Dioxide 28.0 Anion Gap 8 BUN 16 Creatinine 1.04 H Estim Creat Clear Calc 42.41 Est GFR (MDRD) Af Amer 66 Est GFR (MDRD) Non-Af 55 L BUN/Creatinine Ratio 15.4 Glucose 579 H* Calcium 9.5 Magnesium 2.1 Total Bilirubin 0.90 AST 24 ALT 44 Alkaline Phosphatase 274 H Troponin I < 0.015 Total Protein 7.0 Albumin 3.7 Globulin 3.3 Albumin/Globulin Ratio 1.1 Urine Color Urine Clarity Urine pH Ur Specific [place] Urine Protein Urine Glucose (UA) Urine Ketones Urine Occult Blood Urine Nitrite Urine Bilirubin Urine Urobilinogen Ur Leukocyte Esterase Urine RBC Urine WBC Ur Squamous Epith Cells Urine Bacteria Urine Mucus Acetone Level NEGATIVE POC Glucose 12/31/19 12/31/19 12/31/19 14:00 14:39 14:45 WBC RBC Hgb Hct MCV MCH MCHC RDW Std Deviation RDW Coeff of Eduardo Plt Count MPV Immature Gran % (Auto) Neut % (Auto) Lymph % (Auto) [place] % (Auto) Eos % (Auto) Baso % (Auto) Absolute Neuts (auto) Absolute Lymphs (auto) Nucleated RBC % Sodium Cancelled Potassium Cancelled Chloride Cancelled Carbon Dioxide Cancelled Anion Gap Cancelled BUN Cancelled Creatinine Cancelled Estim Creat Clear Calc Cancelled Est GFR (MDRD) Af Amer Cancelled Est GFR (MDRD) Non-Af Cancelled BUN/Creatinine Ratio Cancelled Glucose Cancelled Calcium Cancelled Magnesium Total Bilirubin AST ALT Alkaline Phosphatase Troponin I Total Protein Albumin Globulin Albumin/Globulin Ratio Urine Color Yellow Urine Clarity Clear Urine pH 7.0 Ur Specific [place] 1.010 Urine Protein Negative Urine Glucose (UA) 1000 H Urine Ketones 50 H Urine Occult Blood Negative Urine Nitrite Negative Urine Bilirubin Negative Urine Urobilinogen Normal Ur Leukocyte Esterase Negative Urine RBC 0 SEEN Urine WBC 0 SEEN Ur Squamous Epith Cells 0 SEEN Urine Bacteria 0 SEEN Urine Mucus 0 SEEN Acetone Level POC Glucose > 500 H* - Rhythm Strip Rhythm Strip: Sinus Rhythm Rate: 82 - EKG Initial EKG Interpretation: Sinus Rhythm, - - PAC - Medical Decision Making 79-year-old female presents with hyperglycemia. Patient states that that is making her feel lightheaded because her readings are high. Patient's lab work-up ultimately shows hyperglycemia without DKA. She is given IV fluids and her blood sugar dropped significantly into the 300s. Her head CT, urinalysis, chest x-ray are all normal. Orthostatic vital signs are normal. Patient feels improved. Spoke with her PCP on the phone who recommended starting new via 100 mg daily in the morning. I did try to get this prescription filled at the hospital however the patient does not have enough money to fill it. She states she will get it tomorrow. Patient is to follow-up with her PCP next week. She is given return precautions. Patient stable discharge. Impression: 1. Hyperglycemia 2. Lightheadedness ED Disposition - Plan for ED Patient: Disposition: Home or Assisted Living Instructions: ED Diabetic Hyperglycemia Prescriptions: Sitagliptin Phosphate [Januvia] 100 mg PO DAILY #30 tab Prescription Printed Referrals: Arturo Marie MD [Primary Care Provider] -
--- NOTE | 2019-12-31 14:20 | EKG12_ITS ---
Test Reason : HYPERGLYCEMIA Blood Pressure : / mmHG Vent. Rate : 082 BPM Atrial Rate : 082 BPM P-R Int : 166 ms QRS Dur : 088 ms QT Int : 390 ms P-R-T Axes : 014 009 016 degrees QTc Int : 455 ms Sinus rhythm with Premature atrial complexes Septal infarct , age undetermined Abnormal ECG Confirmed by HEMA ACOSTA, UMM ([id number]), material expeditor SUSIE LANCE ([id number]) on 01/05/2020 2:16:09 PM Referred By: RIYA Confirmed By:UMM GARRIDO MD
--- NOTE | 2019-12-31 14:21 | CT_ITS ---
STUDY: CT BRAIN WITHOUT CONTRAST REASON FOR EXAM: Female, 79 years old. LIGHTHEADEDNESS. ELEVATED BLOOD SUGAR RADIATION DOSAGE (If Supplied By Facility): CTDIvol = ( 44.99 ) mGy, DLP = ( 863.60 ) mGycm TECHNIQUE: Transaxial CT imaging of the brain was performed without administration of intravenous contrast material. Individualized dose optimization techniques were used for this CT. COMPARISON: No relevant priors. FINDINGS: Normal soft tissue structures. Normal calvarium. Normal size ventricles and extra-axial spaces for the patient''s age. Normal white matter tracts of the cerebral hemispheres. Normal basal ganglia and thalami. Normal brainstem. Normal cerebellum. There is no intracranial hemorrhage. There are no findings of an acute ischemic infarction. Normal visualized paranasal sinuses. CT/Brain/Head without Contrast IMPRESSION: Normal unenhanced CT scan of the brain. Electronically Signed: Jacobo Shea MD at 16:44 EDT Tel , Service support ,
[2019-12-31 14:34] LABS: Absolute Lymphocyte Count 1.83 X10^3/uL (0.83-4.51); Absolute Neutrophil Count 2.9 X10^3/uL (2.0-7.7); Basophil# 0.04 X10^3/uL; Basophil% 0.8 % (0-1); Eosinophils% 1.9 % (0-5); Hemoglobin 15.2 g/dL (12.0-15.0); Lymphocyte # 1.83 X10^3/ul (4.0); Lymphocyte % 34.5 % (19-41); Mean Corp Hgb Conc 33.8 g/dL (32-36); Mean Corpuscular Hgb 32.2 pg (27.0-32.0); Mean Corpuscular Volume 95.3 fL (81-99); Mean Platelet Vol. 11.3 fl (6.2-12.0); Monocyte# 0.43 X10^3/uL; Monocyte% 8.1 % (0-10); NRBC Flagged by Analyzer 0 % (0-5); Neutrophil % 54.5 % (47-70); Platelet Count 182 K/mm3 (150-450); RBC Distribution Width CV 12.8 % (11.6-14.6); RBC Distribution Width SD 44.8 fl (35.1-43.9); Red Blood Count 4.72 M/mm3 (4.2-5.4); White Blood Count 5.3 K/mm3 (4.4-11.0)
[2019-12-31 14:46] LABS: Bedside Glucose > 500 mg/dL (70-110)
[2019-12-31 14:52] LABS: Bacteria 0 SEEN /hpf (None Seen); Mucous, Urine 0 SEEN /hpf (<or=2+); Red Blood Cells-Urine 0 SEEN /hpf (0-5); Squamous Epithelial Cells - UA 0 SEEN /hpf (5-10); White Blood Cells 0 SEEN /hpf (0-5)
[2019-12-31 14:57] LABS: ALB/GLOB Ratio 1.1 RATIO (0.9-2.4); AST(SGOT) 24 U/L (15-37); Alanine Aminotransfer ALT/SGPT 44 U/L (13-56); Albumin, Serum 3.7 g/dL (3.2-5.0); Alkaline Phosphatase 274 U/L (45-117); Anion Gap 8 (5-15); BUN 16 mg/dL (7-18); BUN/Creat Ratio 15.4 RATIO (10-20); Calcium,Total 9.5 mg/dL (8.5-10.1); Chloride 92 mmol/L (98-107); Creatinine, Serum 1.04 mg/dL (0.55-1.02); EST Glomerular Filtration Rate 55 mL/min (>60); Est Glom Filt Rate - Afr Amer 66 mL/min (>60); Estimated Creatinine Clearance 42.41 ml/min; Globulin 3.3 g/dL (2.2-4.2); Glucose 579 mg/dL (74-106); Magnesium 2.1 mg/dL (1.6-2.6); Potassium 4.1 mmol/L (3.5-5.1); Sodium Level 128 mmol/L (136-145)
[2019-12-31 14:58] LABS: Color, Urine Yellow (Yellow); Glucose, Dipstick 1000 mg/dl (Normal); Ketone-Dipstick 50 mg/dl (Negative); Leukocyte Esterase-Dipstick Negative /ul (Negative); Nitrite-Dipstick Negative (Negative); Occult Blood-Urine Negative /ul (Negative); Protein-Dipstick Negative (Negative); Urine Bilirubin Dipstick Negative (Negative); Urine Clarity Clear (Clear); Urine Urobilinogen Normal (Normal)
--- NOTE | 2019-12-31 15:03 | RAD_ITS ---
STUDY: X-RAY CHEST REASON FOR EXAM: Female, 79 years old. DIZZINESS, HIGH BP TECHNIQUE: Single AP portable view of the chest. COMPARISON: Comparison is made with prior study dated 04/01/2018. FINDINGS: EKG electrodes are seen. The lungs are clear and expanded. There is no demonstrated pleural abnormality. Normal size heart. Normal mediastinum and danielle. Normal visualized pulmonary arteries. There is atherosclerotic tortuosity of the aortic arch and descending thoracic aorta. There are diffuse degenerative changes of the visualized thoracic spine. Normal visualized ribs, clavicles, and shoulders. There is no demonstrated abnormality of the visualized soft tissue structures of the upper abdomen. RAD/Chest 1 View (Portable) IMPRESSION: No acute abnormality is seen. Electronically Signed: Raj Bolivar, at 15:20 EDT , Service support ,
[2019-12-31 15:29] VITALS: BP 138/76; BP 141/85; BP 157/74; PULSE 111; PULSE 78; PULSE 94
[2019-12-31 15:52] VITALS: BP 160/86; PULSE 95; RESP 15; O2SAT 96
[2019-12-31 17:09] VITALS: BP 154/83; PULSE 91; RESP 12; O2SAT 99
[2019-12-31 18:16] LABS: Bedside Glucose 391 mg/dL (70-110)
[2019-12-31] MEDS: Insulin Lispro 100 UNIT/ML INSULN.PEN 10 UNIT SC (18:35)
[2019-12-31 18:41] VITALS: BP 165/90; PULSE 95; RESP 20; O2SAT 99
== END 2019-12-31 18:45 | disposition home or self-care (01) ==
PROVIDERS: Emergency Provider Student in an Organized Health Care Education/Training Program; PCP Family Medicine
DX: E11.65 Type 2 diabetes mellitus with hyperglycemia (principal); I35.0 Nonrheumatic aortic (valve) stenosis; I10 Essential (primary) hypertension; E78.5 Hyperlipidemia, unspecified; K21.9 Gastro-esophageal reflux disease without esophagitis; E66.9 Obesity, unspecified; Z79.84 Long term (current) use of oral hypoglycemic drugs; Z79.899 Other long term (current) drug therapy
CPT/HCPCS: 70450; 71045; 80053; 81001; 82009; 82962; 83735; 84484; 85025; 93005; 99285; A4216

== ENCOUNTER 2020-01-09 06:32 | Emergency (ER) | payer MEDICARE, SELFPAY ==
[2020-01-09 06:34] VITALS: BP 179/103; PULSE 86; RESP 18; TEMP 36; O2SAT 96; BMI 33.3
--- NOTE | 2020-01-09 06:39 | ED.VIS.GEN ---
History of Present Illness Detail of Chief Complaint: Auditory hallucinations Informant: Patient Onset: Days Context: Sudden Onset Timing: Intermittent Quality: Hearing trains, loud noises Location: Primary residence Current Severity: - - Is only not hearing noises or voices Maximum Severity: Severe Worsened by: Nothing Relieved by: Nothing Associated Symptoms: Difficulty sleeping Narrative: Patient is an elderly woman with diabetes who was seen December 30 and diagnosed with hyperglycemia. She was treated in the emergency department discharge to home. She denies fever, chills night sweats. She denies double vision, blurred vision or loss of vision. She does report rhinorrhea and congestion. She denies postnasal drainage. Denies sore throat. Son states she talks a lot because she is hard of hearing. She denies cough or shortness of breath. She denies chest discomfort. She denies abdominal pain, nausea, vomiting or diarrhea. She denies frequency, dysuria or hematuria. She does have intermittent urgency and wears a depends diaper. She has chronic swelling of her lower extremities. She denies myalgias or arthralgias. Prior similar symptoms: No Recent Illness/Hospitalization: Yes <Jasso,Bennie - Last Filed: 01/09/20 06:39> <AsadZohaib - Last Filed: 01/09/20 07:41> Chief Complaint: General Illness - Past Medical History (1) Diabetes mellitus Status: Chronic (2) Dyslipidemia Status: Chronic (3) GERD (gastroesophageal reflux disease) Status: Chronic (4) HTN (hypertension) Status: Chronic (5) Hiatal hernia Status: Chronic (6) Thrombocytopenia Status: Resolved <Jasso,Bennie - Last Filed: 01/09/20 06:39> Past Medical History Prior records reviewed: Yes Surgical History: cholecystectomy, tonsillectomy Lives: Alone Smoking Status: Never smoker Alcohol: None Drugs: None - Family History Paternal Family History: Family History (Last Reviewed 04/01/18 @ 20:[address] Arvin Joshua MD) Mother Asthma Father Heart disease Hypertension Arthritis Family History: Reports: Dementia Sibling Family History: Family History (Last Reviewed 04/01/18 @ 20:[address] Arvin Joshua MD) Mother Asthma Father Heart disease Hypertension Arthritis Family History: Reports: Diabetes Maternal Family History: Family History (Last Reviewed 12/31/18 @ 20:[address] Arvin Joshua MD) Mother Asthma Father Heart disease Hypertension Arthritis Family History: Reports: Unknown <Jasso,Bennie - Last Filed: 01/09/20 06:39> - Family History Paternal Family History: Family History (Last Reviewed 04/01/18 @ 20:[address] Arvin Joshua MD) Mother Asthma Father Heart disease Hypertension Arthritis Sibling Family History: Family History (Last Reviewed 04/01/18 @ 20:[address] Arvin Joshua MD) Mother Asthma Father Heart disease Hypertension Arthritis Maternal Family History: Family History (Last Reviewed 04/01/18 @ 20:[address] Arvin Joshua MD) Mother Asthma Father Heart disease Hypertension Arthritis <Zohaib Kamara - Last Filed: 01/09/20 07:41> - Allergies and Home Meds Allergies/Adverse Reactions: Allergies celecoxib [From Celebrex] Allergy (Verified 01/09/20 06:33) Unknown codeine Allergy (Verified 01/09/20 06:33) Unknown niacin Allergy (Verified 01/09/20 06:33) Unknown Penicillins Allergy (Verified 01/09/20 06:33) Unknown prednisone Allergy (Verified 01/09/20 06:33) Unknown Sulfa (Sulfonamide Antibiotics) Allergy (Verified 01/09/20 06:33) Unknown Primary Care Physician: Arturo Marie MD [Primary Care Provider] - Review of Systems General: Denies: Chills, Fever, Malaise Eyes: Denies: Visual changes - bilaterally, Blurred Vision - bilaterally, Diplopia ENT: Reports: Rhinorrhea, - - Auditory hallucinations of sounds. Denies: Bilateral ear pain, Sore throat Cardiovascular: Denies: Chest pain, Palpitations, Heart racing Respiratory: Denies: Dyspnea, Cough, Sputum, Dyspnea on exertion, Orthopnea, Paroxysmal nocturnal dyspnea Gastrointestinal: Denies: Abdominal pain, Nausea, Vomiting, Diarrhea Genitourinary: Denies: Dysuria, Hematuria, Frequency Musculoskeletal: Reports: Swelling. Denies: Myalgias, Arthralgias, Neck pain, Back pain, Extremity Pain Skin: Denies: Rash Neurological: Denies: Headache, Weakness Endocrine: Denies: Polyuria, Polydipsia Hematologic: Denies: Easy bruising <Jasso,Bennie - Last Filed: 01/09/20 06:39> Physical Exam Vital Signs/Narrative: Vital Signs Temp Pulse Resp BP Pulse Ox 01/09/20 06:34 96.8 F L 86 18 179/103 H 96 Inital Vital Signs reviewed: Yes General: Well nourished, Well developed, Obese, No Acute Distress Head: Normocephalic, Atraumatic Eyes: Perrl, EOMI. Negative for: Pale conjunctiva, Scleral icterus ENT: Moist mucous membranes, No rhinorrhea. Negative for: TM's clear - Unable to see right TM due to cerumen impaction. Neck: Supple, Nontender, No lymphadenopathy, No JVD Cardiovascular: Regular rate, Regular rhythm, No murmurs, Normal S1, Normal S2 Respiratory: No distress, CTA bilaterally, Chest nontender Abdomen: Soft, Nontender, Nondistended, Normal bowel sounds Extremities: Nontender, Edema - 4 mm pitting edema Skin: Normal color, No rash, No Trauma. Negative for: Cyanosis, Diaphoresis, Jaundice Neurological: Alert, Oriented x3, Cranial nerves II-XII grossly intact, Normal Strength, Normal Sensation Psychological: Normal affect <Jasso,Bennie - Last Filed: 01/09/20 06:39> Vital Signs/Narrative: Vital Signs Temp Pulse Resp BP Pulse Ox 01/09/20 06:34 96.8 F L 86 18 179/103 H 96 <Zohaib Kamara - Last Filed: 01/09/20 07:41> Diagnostic/Tx/Re-eval - Medical Decision Making Patient has impaction of right external auditory canal. Plan is Debrox and irrigation/cerumen spoon. Since she is diabetic we will assess blood sugar as well as urine and electrolytes. <Jasso,Bennie - Last Filed: 01/09/20 06:39> - Medical Decision Making This patient was checked out to me with labs pending. Test results: Abnormal Lab Results 01/09/20 01/09/20 01/09/20 06:45 06:45 06:50 WBC 5.1 RBC 4.39 Hgb 14.3 Hct 43.3 MCV 98.6 MCH 32.6 H MCHC 33.0 RDW Std Deviation 48.3 H RDW Coeff of Eduardo 13.2 Plt Count 166 MPV 11.1 Immature Gran % (Auto) 0.000 Neut % (Auto) 42.8 L Lymph % (Auto) 43.1 H [place] % (Auto) 10.3 H Eos % (Auto) 2.8 Baso % (Auto) 1.0 Absolute Neuts (auto) 2.2 Absolute Lymphs (auto) 2.18 Nucleated RBC % 0 Sodium 142 Potassium 4.2 Chloride 110 H Carbon Dioxide 26.0 Anion Gap 6 BUN 18 Creatinine 0.81 Estim Creat Clear Calc 54.45 Est GFR (MDRD) Af Amer 88 Est GFR (MDRD) Non-Af 73 BUN/Creatinine Ratio 22.2 H Glucose 126 H Calcium 9.7 Urine Color Yellow Urine Clarity Clear Urine pH 5.0 Ur Specific [place] 1.010 Urine Protein Negative Urine Glucose (UA) Normal Urine Ketones Negative Urine Occult Blood 25 H Urine Nitrite Negative Urine Bilirubin Negative Urine Urobilinogen Normal Ur Leukocyte Esterase 100 H Urine RBC 0 SEEN Urine WBC 0-5 SEEN Ur Squamous Epith Cells 0-5 SEEN Ur Transition Epith Cell 0-5 SEEN Ur Renal Epithelial Cell 0-5 SEEN Urine Bacteria 1+ Urine Mucus 0 SEEN POC Glucose 01/09/20 06:54 WBC RBC Hgb Hct MCV MCH MCHC RDW Std Deviation RDW Coeff of Eduardo Plt Count MPV Immature Gran % (Auto) Neut % (Auto) Lymph % (Auto) [place] % (Auto) Eos % (Auto) Baso % (Auto) Absolute Neuts (auto) Absolute Lymphs (auto) Nucleated RBC % Sodium Potassium Chloride Carbon Dioxide Anion Gap BUN Creatinine Estim Creat Clear Calc Est GFR (MDRD) Af Amer Est GFR (MDRD) Non-Af BUN/Creatinine Ratio Glucose Calcium Urine Color Urine Clarity Urine pH Ur Specific [place] Urine Protein Urine Glucose (UA) Urine Ketones Urine Occult Blood Urine Nitrite Urine Bilirubin Urine Urobilinogen Ur Leukocyte Esterase Urine RBC Urine WBC Ur Squamous Epith Cells Ur Transition Epith Cell Ur Renal Epithelial Cell Urine Bacteria Urine Mucus POC Glucose 112 H Emergency department course: Patient had her ear irrigated. She complains of hearing fire engines and congregation bells. She does admit to have hearing voices. She denies command hallucinations. Her son reports the patient had this previously with a blood pressure medication. The patient reports that she had stopped taking this for 4 months and then began again recently. Treatment plan: Patient will be discharged instructions to follow-up with her primary care physician in 3 to 5 days. She is also instructed to follow-up with Dr. River Adames regarding the cerumen impaction and possible hearing testing. Return to the emergency department for any worsening symptoms. Disposition: To home in improved and stable condition. Impression: Right cerumen impaction. <Zohaib Kamara - Last Filed: 01/09/20 07:41> ED Disposition <Bennie Jasso - Last Filed: 01/09/20 06:39> <Zohaib Kamara - Last Filed: 01/09/20 07:41> - Plan for ED Patient: Instructions: ED Earwax Removal Referrals: Arturo Marie MD [Primary Care Provider] - 3-5 Days River Smith MD [STAFF PHYSICIAN] - 1 Week
[2020-01-09 06:54] LABS: Mucous, Urine 0 SEEN /hpf (<or=2+); Red Blood Cells-Urine 0 SEEN /hpf (0-5)
[2020-01-09 06:56] LABS: Absolute Lymphocyte Count 2.18 X10^3/uL (0.83-4.51); Absolute Neutrophil Count 2.2 X10^3/uL (2.0-7.7); Basophil# 0.05 X10^3/uL; Eosinophil# 0.14 X10^3/uL; Eosinophils% 2.8 % (0-5); Hematocrit 43.3 % (37-47); Hemoglobin 14.3 g/dL (12.0-15.0); Lymphocyte # 2.18 X10^3/ul (4.0); Lymphocyte % 43.1 % (19-41); Mean Corpuscular Hgb 32.6 pg (27.0-32.0); Mean Corpuscular Volume 98.6 fL (81-99); Mean Platelet Vol. 11.1 fl (6.2-12.0); Monocyte# 0.52 X10^3/uL; Monocyte% 10.3 % (0-10); NRBC Flagged by Analyzer 0 % (0-5); Neutrophil # 2.17 X10^3/uL (2.7-7.7); Neutrophil % 42.8 % (47-70); Platelet Count 166 K/mm3 (150-450); RBC Distribution Width CV 13.2 % (11.6-14.6); RBC Distribution Width SD 48.3 fl (35.1-43.9); Red Blood Count 4.39 M/mm3 (4.2-5.4); White Blood Count 5.1 K/mm3 (4.4-11.0)
[2020-01-09] MEDS: Carbamide Peroxide 15 ML Bottle 5 DRP OTIC (06:56)
[2020-01-09 06:59] LABS: Color, Urine Yellow (Yellow); Glucose, Dipstick Normal (Normal); Ketone-Dipstick Negative (Negative); Leukocyte Esterase-Dipstick 100 /ul (Negative); Nitrite-Dipstick Negative (Negative); Occult Blood-Urine 25 /ul (Negative); Protein-Dipstick Negative (Negative); Urine Bilirubin Dipstick Negative (Negative); Urine Clarity Clear (Clear); Urine Urobilinogen Normal (Normal)
[2020-01-09 07:01] LABS: Bedside Glucose 112 mg/dL (70-110)
[2020-01-09 07:08] LABS: Bacteria 1+ /hpf (None Seen); Renal Epithelial Cells 0-5 SEEN /hpf (0-5); Squamous Epithelial Cells - UA 0-5 SEEN /hpf (5-10); Transitional Epithelial - Ur 0-5 SEEN /hpf (0-5); White Blood Cells 0-5 SEEN /hpf (0-5)
[2020-01-09 07:13] LABS: Anion Gap 6 (5-15); BUN 18 mg/dL (7-18); BUN/Creat Ratio 22.2 RATIO (10-20); Calcium,Total 9.7 mg/dL (8.5-10.1); Chloride 110 mmol/L (98-107); Creatinine, Serum 0.81 mg/dL (0.55-1.02); EST Glomerular Filtration Rate 73 mL/min (>60); Est Glom Filt Rate - Afr Amer 88 mL/min (>60); Estimated Creatinine Clearance 54.45 ml/min; Glucose 126 mg/dL (74-106); Potassium 4.2 mmol/L (3.5-5.1); Sodium Level 142 mmol/L (136-145)
[2020-01-09 07:55] VITALS: BP 162/89; PULSE 74; RESP 18; O2SAT 96
== END 2020-01-09 07:55 | disposition home or self-care (01) ==
LOC: ED 07:01
PROVIDERS: Emergency Provider Emergency Medicine; PCP Family Medicine
DX: H61.21 Impacted cerumen, right ear (principal); R44.0 Auditory hallucinations; H91.90 Unspecified hearing loss, unspecified ear; J34.89 Other specified disorders of nose and nasal sinuses; E11.65 Type 2 diabetes mellitus with hyperglycemia; I10 Essential (primary) hypertension; E78.5 Hyperlipidemia, unspecified; M79.89 Other specified soft tissue disorders; K21.9 Gastro-esophageal reflux disease without esophagitis; E66.9 Obesity, unspecified; Z79.84 Long term (current) use of oral hypoglycemic drugs; Z79.899 Other long term (current) drug therapy
CPT/HCPCS: 36415; 80048; 81001; 82962; 85025; 99283; P9612; A4216

== ENCOUNTER 2020-01-11 14:10 | Emergency (ER) | payer MEDICARE, SELFPAY ==
[2020-01-11 14:11] VITALS: BP 197/74; PULSE 87; RESP 18; TEMP 36.6; O2SAT 99; BMI 32.3
--- NOTE | 2020-01-11 14:57 | RAD_ITS ---
STUDY: X-RAY CHEST REASON FOR EXAM: Female, 79 years old. Altered mental status TECHNIQUE: Single AP portable view of the chest. COMPARISON: 12/31/2019. FINDINGS: The lungs are clear and expanded. There is no demonstrated pleural abnormality. Normal size heart. Normal mediastinum and danielle. Normal visualized pulmonary arteries. Normal visualized aortic arch and descending thoracic aorta. There are diffuse degenerative changes of the visualized thoracic spine. There is degenerative osteoarthritis of the bilateral shoulders. There is no demonstrated abnormality of the visualized soft tissue structures of the upper abdomen. RAD/Chest 1 View (Portable) IMPRESSION: No definite acute or significant abnormality seen. Electronically Signed: Abhishek Bryan MD at 16:53 EDT , Service support ,
--- NOTE | 2020-01-11 14:57 | EKG12_ITS ---
Test Reason : MENTAL HEALTH Blood Pressure : / mmHG Vent. Rate : 076 BPM Atrial Rate : 076 BPM P-R Int : 170 ms QRS Dur : 086 ms QT Int : 386 ms P-R-T Axes : 030 001 010 degrees QTc Int : 434 ms Sinus rhythm with marked sinus arrhythmia Minimal voltage criteria for LVH, may be normal variant Borderline ECG Confirmed by LUCIUS ACOSTA, ALMA DELIA ([id number]), editor at large SUSIE LANCE ([id number]) on 01/19/2020 8:33:45 A M Referred By: NITIN/KUMAR Confirmed By:KATHRYN KAN MD
--- NOTE | 2020-01-11 14:57 | CT_ITS ---
STUDY: CT BRAIN WITHOUT CONTRAST REASON FOR EXAM: Female, 79 years old. CHANGE IN MENTAL STATUS, PT STATES SHE IS HEARING VOICES,HTN,DB RADIATION DOSAGE (If Supplied By Facility): CTDIvol = ( 44.99 ) mGy, DLP = ( 812.98 ) mGycm TECHNIQUE: Transaxial CT imaging of the brain was performed without administration of intravenous contrast material. Individualized dose optimization techniques were used for this CT. COMPARISON: 12/31/2019 FINDINGS: Normal soft tissue structures. Normal calvarium. Normal size ventricles and extra-axial spaces for the patient''s age. There are areas of decreased attenuation within the white matter tracts of the supratentorial brain, consistent with microvascular disease changes. Normal basal ganglia and thalami. Normal brainstem. Normal cerebellum. There is no intracranial hemorrhage. There are no findings of an acute ischemic infarction. Normal visualized paranasal sinuses. CT/Brain/Head without Contrast IMPRESSION: Chronic involutional changes of the brain. No definite acute abnormality. Electronically Signed: Abhishek Bryan MD at 16:16 EDT , Service support ,
--- NOTE | 2020-01-11 15:04 | ED.DCSUM_ITS ---
History of Present Illness Informant: Patient, Family Onset: Weeks - 1 week Context: Gradual Onset Timing: Continuous Quality: voices Location: head Current Severity: Severe Maximum Severity: Severe Worsened by: nothing Relieved by: nothing Associated Symptoms: denies Narrative: 79-year-old female presents to the emergency department for hearing voices. For the last week the patient states she has been hearing voices she has been hearing voices that she describes as mumbling and she is also been hearing music that she describes as music that a symphony would play. She states that she has been to the emergency department several days ago and her ears were irrigated and she did have a cerumen impaction but this did not help her symptoms. She was up all night with the symptoms and called her daughter this morning and told her that she did not want to live anymore because she could not take the voices anymore. She has a history of depression but is not on medication for this. She has not had any visual hallucinations. She is not paranoid or delusional. She is not angry or agitated. She denies drugs or alcohol. Rest of her review of systems are negative Prior similar symptoms: Yes Recent Illness/Hospitalization: No <Surendra Farrell - Last Filed: 01/11/20 17:39> <Fer Choudhury - Last Filed: 01/11/20 21:05> Chief Complaint: Mental Health Past Medical History Prior records reviewed: Yes Past Medical History: - - Hypertension hyperlipidemia type 2 diabetes mellitus Surgical History: cholecystectomy, tonsillectomy Lives: Alone Smoking Status: Never smoker Alcohol: None Drugs: None - Family History Paternal Family History: Family History (Last Reviewed 04/01/18 @ 20:[address] Arvin Joshua MD) Mother Asthma Father Heart disease Hypertension Arthritis Family History: Reports: Dementia Sibling Family History: Family History (Last Reviewed 04/01/18 @ 20:[address] Arvin Joshua MD) Mother Asthma Father Heart disease Hypertension Arthritis Family History: Reports: Diabetes Maternal Family History: Family History (Last Reviewed 04/01/18 @ 20:[address] Arvin Joshua MD) Mother Asthma Father Heart disease Hypertension Arthritis Family History: Reports: Unknown <Surendra Farrell - Last Filed: 01/11/20 17:39> - Family History Paternal Family History: Family History (Last Reviewed 04/01/18 @ 20:[address] Arvin Joshua MD) Mother Asthma Father Heart disease Hypertension Arthritis Sibling Family History: Family History (Last Reviewed 04/01/18 @ 20:[address] Arvin Joshua MD) Mother Asthma Father Heart disease Hypertension Arthritis Maternal Family History: Family History (Last Reviewed 04/01/18 @ 20:[address] Arvin Joshua MD) Mother Asthma Father Heart disease Hypertension Arthritis <Fer Choudhury - Last Filed: 01/11/20 21:05> - Allergies and Home Meds Allergies/Adverse Reactions: Allergies celecoxib [From Celebrex] Allergy (Verified 01/11/20 14:11) Unknown codeine Allergy (Verified 01/11/20 14:11) Unknown niacin Allergy (Verified 01/11/20 14:11) Unknown Penicillins Allergy (Verified 01/11/20 14:11) Unknown prednisone Allergy (Verified 01/11/20 14:11) Unknown Sulfa (Sulfonamide Antibiotics) Allergy (Verified 01/11/20 14:11) Unknown Primary Care Physician: Arturo Marie MD [Primary Care Provider] - Review of Systems All systems negative except as indicated General: Denies: Chills, Fever, Sweats Eyes: Denies: Visual changes - bilaterally, Diplopia ENT: Denies: Rhinorrhea, Sore throat Cardiovascular: Denies: Chest pain, Palpitations Respiratory: Denies: Dyspnea, Cough, Dyspnea on exertion Gastrointestinal: Denies: Abdominal pain, Nausea, Vomiting, Diarrhea, Melena, Hematochezia Genitourinary: Denies: Dysuria, Hematuria, Frequency Musculoskeletal: Denies: Back pain, Extremity Pain Skin: Denies: Rash, Wounds Neurological: Denies: Headache, Weakness, Numbness Psych: Reports: Depression. Denies: Anxiety, Suicidal thoughts, Suicidal ideations <Surendra Farrell - Last Filed: 01/11/20 17:39> Physical Exam Vital Signs/Narrative: Vital Signs Temp Pulse Resp BP Pulse Ox 01/11/20 14:11 97.8 F 87 18 197/74 H 99 Inital Vital Signs reviewed: Yes General: Well nourished, Well developed, No Acute Distress Head: Normocephalic, Atraumatic Eyes: Perrl, EOMI ENT: Moist mucous membranes, No rhinorrhea Neck: Supple, Nontender Cardiovascular: Regular rate, Regular rhythm, No murmurs Respiratory: No distress, CTA bilaterally, Chest nontender Abdomen: Soft, Nontender, Nondistended, Normal bowel sounds Back: Nontender, Normal Inspection Extremities: Nontender, No edema Skin: Normal color, No rash Neurological: Alert, Oriented x3, Cranial nerves II-XII grossly intact, Normal Strength, Normal Sensation Psychological: Depressed, Tearful, - - Patient is not actively suicidal. Normal speech pattern. Normal voice. Normal logical goal-directed thoughts <Surendra Farrell - Last Filed: 01/11/20 17:39> Vital Signs/Narrative: Vital Signs Pulse Resp BP Pulse Ox 01/11/20 19:44 76 16 135/76 H 01/11/20 18:00 78 16 01/11/20 17:08 72 16 159/77 H 93 <Fer Choudhury - Last Filed: 01/11/20 21:05> Diagnostic/Tx/Re-eval Chest X-Ray - ED: 1 View, Read by ED Physician, Read by Radiologist, No Acute Disease Impressions Brain CT 01/11/20 14:57 IMPRESSION: Chronic involutional changes of the brain. No definite acute abnormality. Electronically Signed: Abhishek Bryan MD at 16:16 EDT , Service support , Chest X-Ray 01/11/20 14:57 IMPRESSION: No definite acute or significant abnormality seen. Electronically Signed: Abhishek Bryan MD at 16:53 EDT , Service support , 01/11/20 14:57 Brain/Head without Contrast [CT] Stat Chest 1 View (Portable) [RAD] Stat Laboratory Results 01/11/20 01/11/20 01/11/20 15:20 15:20 15:25 WBC 6.4 RBC 4.27 Hgb 13.9 Hct 42.2 MCV 98.8 MCH 32.6 H MCHC 32.9 RDW Std Deviation 48.2 H RDW Coeff of Eduardo 13.2 Plt Count 183 MPV 10.6 Immature Gran % (Auto) 0.200 Neut % (Auto) 57.5 Lymph % (Auto) 32.8 [place] % (Auto) 7.5 Eos % (Auto) 1.2 Baso % (Auto) 0.8 Absolute Neuts (auto) 3.7 Absolute Lymphs (auto) 2.10 Nucleated RBC % 0 Sodium Potassium Chloride Carbon Dioxide Anion Gap BUN Creatinine Estim Creat Clear Calc Est GFR (MDRD) Af Amer Est GFR (MDRD) Non-Af BUN/Creatinine Ratio Glucose Calcium TSH Urine Color Straw Urine Clarity Sl. Cloudy Urine pH 6.5 Ur Specific [place] 1.005 Urine Protein 30 H Urine Glucose (UA) 250 H Urine Ketones Negative Urine Occult Blood 250 H Urine Nitrite Negative Urine Bilirubin Negative Urine Urobilinogen Normal Ur Leukocyte Esterase 500 H Urine RBC 0-5 SEEN Urine WBC 5-10 SEEN Ur Squamous Epith Cells 0 SEEN Urine Bacteria 1+ Urine Mucus 0 SEEN Urine Opiates Screen NEGATIVE Urine Methadone Screen NEGATIVE Ur Barbiturates Screen NEGATIVE Ur Phencyclidine Scrn NEGATIVE Ur Amphetamines Screen NEGATIVE U Methamphetamin-MDMA NEGATIVE U Benzodiazepines Scrn NEGATIVE Urine Cocaine Screen NEGATIVE U Cannabinoids Screen NEGATIVE Ur Drug Screen Comment Ethyl Alcohol 01/11/20 01/11/20 01/11/20 15:25 15:25 15:25 WBC RBC Hgb Hct MCV MCH MCHC RDW Std Deviation RDW Coeff of Eduardo Plt Count MPV Immature Gran % (Auto) Neut % (Auto) Lymph % (Auto) [place] % (Auto) Eos % (Auto) Baso % (Auto) Absolute Neuts (auto) Absolute Lymphs (auto) Nucleated RBC % Sodium 141 Potassium 3.7 Chloride 109 H Carbon Dioxide 26.0 Anion Gap 6 BUN 12 Creatinine 0.76 Estim Creat Clear Calc 44.10 Est GFR (MDRD) Af Amer 94 Est GFR (MDRD) Non-Af 78 BUN/Creatinine Ratio 15.7 Glucose 175 H Calcium 9.5 TSH 1.79 Urine Color Urine Clarity Urine pH Ur Specific [place] Urine Protein Urine Glucose (UA) Urine Ketones Urine Occult Blood Urine Nitrite Urine Bilirubin Urine Urobilinogen Ur Leukocyte Esterase Urine RBC Urine WBC Ur Squamous Epith Cells Urine Bacteria Urine Mucus Urine Opiates Screen Urine Methadone Screen Ur Barbiturates Screen Ur Phencyclidine Scrn Ur Amphetamines Screen U Methamphetamin-MDMA U Benzodiazepines Scrn Urine Cocaine Screen U Cannabinoids Screen Ur Drug Screen Comment Ethyl Alcohol Cancelled 01/11/20 16:00 WBC RBC Hgb Hct MCV MCH MCHC RDW Std Deviation RDW Coeff of Eduardo Plt Count MPV Immature Gran % (Auto) Neut % (Auto) Lymph % (Auto) [place] % (Auto) Eos % (Auto) Baso % (Auto) Absolute Neuts (auto) Absolute Lymphs (auto) Nucleated RBC % Sodium Potassium Chloride Carbon Dioxide Anion Gap BUN Creatinine Estim Creat Clear Calc Est GFR (MDRD) Af Amer Est GFR (MDRD) Non-Af BUN/Creatinine Ratio Glucose Calcium TSH Urine Color Urine Clarity Urine pH Ur Specific [place] Urine Protein Urine Glucose (UA) Urine Ketones Urine Occult Blood Urine Nitrite Urine Bilirubin Urine Urobilinogen Ur Leukocyte Esterase Urine RBC Urine WBC Ur Squamous Epith Cells Urine Bacteria Urine Mucus Urine Opiates Screen Urine Methadone Screen Ur Barbiturates Screen Ur Phencyclidine Scrn Ur Amphetamines Screen U Methamphetamin-MDMA U Benzodiazepines Scrn Urine Cocaine Screen U Cannabinoids Screen Ur Drug Screen Comment Ethyl Alcohol 7.0 - Rhythm Strip Rhythm Strip: Sinus Rhythm Rate: 76 Ectopy: None - EKG Initial EKG Interpretation: Sinus Rhythm, No Acute Injury Pattern Prior: Unchanged - Medical Decision Making Patient is depressed but not actively suicidal. She has been hearing voices. She is not hallucinating she is not delusional she is not paranoid her stroke scale was 0 and this appears to be psychiatric in nature. Medical work-up was pursued. CT brain unremarkable. Chest x-ray unremarkable. Laboratory work-up unremarkable. She does have what appears to be urinary tract infection. She however at this time is stable she is not confused or delirious she is not septic her vital signs are stable she was given a dose of Cipro due to numerous antibiotic allergies a urine culture was sent and she will be transferred to a geriatric psychiatric facility. Mental health counselors contacted for help with placement <Surendra Farrell - Last Filed: 01/11/20 17:39> - Medical Decision Making Seen and evaluated independently and in conjunction with physician bilingual office assistant. Agree with notes above unless documented otherwise. Certainly patient's psychotic symptoms could be caused by urinary tract infection, we sent a urine culture and begin treatment with IV Cipro. The patient did become agitated, hearing more voices. She was amenable to taking something, so we gave her a Zyprexa Zydis 10 mg. Otherwise, she is medically cleared. Discussed with crisis, they evaluated and agreed that treating her UTI and admitting her to geropsychiatry would be an appropriate placement, family and patient are also comfortable with this overall plan. Placement is pending at this time. We did try with [facility] unit, however they do not accept the patient's insurance. <Fer Choudhury - Last Filed: 01/11/20 21:05> ED Disposition <Surendra Farrell - Last Filed: 01/11/20 17:39> <Fer Choudhury - Last Filed: 01/11/20 21:05> - Plan for ED Patient: Disposition: Psychiatric Hospital or Unit Diagnosis: Depressed, UTI (urinary tract infection), Acute psychosis Referrals: Arturo Marie MD [Primary Care Provider] -
[2020-01-11 15:34] LABS: Mucous, Urine 0 SEEN /hpf (<or=2+); Squamous Epithelial Cells - UA 0 SEEN /hpf (5-10)
[2020-01-11 15:37] LABS: Color, Urine Straw (Yellow); Glucose, Dipstick 250 mg/dl (Normal); Ketone-Dipstick Negative (Negative); Leukocyte Esterase-Dipstick 500 /ul (Negative); Nitrite-Dipstick Negative (Negative); Occult Blood-Urine 250 /ul (Negative); Protein-Dipstick 30 mg/dl (Negative); Specific Gravity, Urine 1.005 (1.002-1.030); Urine Bilirubin Dipstick Negative (Negative); Urine Clarity Sl. Cloudy (Clear); Urine Urobilinogen Normal (Normal); Urine pH 6.5 (5.0 - 8.0)
[2020-01-11 15:37] LABS: Absolute Neutrophil Count 3.7 X10^3/uL (2.0-7.7); Basophil# 0.05 X10^3/uL; Basophil% 0.8 % (0-1); Eosinophil# 0.08 X10^3/uL; Eosinophils% 1.2 % (0-5); Hematocrit 42.2 % (37-47); Hemoglobin 13.9 g/dL (12.0-15.0); Lymphocyte % 32.8 % (19-41); Mean Corp Hgb Conc 32.9 g/dL (32-36); Mean Corpuscular Hgb 32.6 pg (27.0-32.0); Mean Corpuscular Volume 98.8 fL (81-99); Mean Platelet Vol. 10.6 fl (6.2-12.0); Monocyte# 0.48 X10^3/uL; Monocyte% 7.5 % (0-10); NRBC Flagged by Analyzer 0 % (0-5); Neutrophil # 3.69 X10^3/uL (2.7-7.7); Neutrophil % 57.5 % (47-70); Platelet Count 183 K/mm3 (150-450); RBC Distribution Width CV 13.2 % (11.6-14.6); RBC Distribution Width SD 48.2 fl (35.1-43.9); Red Blood Count 4.27 M/mm3 (4.2-5.4); White Blood Count 6.4 K/mm3 (4.4-11.0)
[2020-01-11 15:43] LABS: Bacteria 1+ /hpf (None Seen); Red Blood Cells-Urine 0-5 SEEN /hpf (0-5); White Blood Cells 5-10 SEEN /hpf (0-5)
[2020-01-11 15:51] LABS: Amphetamine Urine VISTA NEGATIVE (<1000 ng/mL); Barbiturate Urine VISTA NEGATIVE (< 200 ng/mL); Benzodiazepine Urine VISTA NEGATIVE (< 200 ng/mL); Cocaine Urine VISTA NEGATIVE (< 300 ng/mL); Ecstacy Urine VISTA NEGATIVE (< 500 ng/mL); Methadone Urine VISTA NEGATIVE (< 300 ng/mL); PCP Urine VISTA NEGATIVE (< 25 ng/mL); THC Urine VISTA NEGATIVE (< 50 ng/mL); Vista UDS pH Range 7
[2020-01-11 15:52] LABS: Anion Gap 6 (5-15); BUN 12 mg/dL (7-18); BUN/Creat Ratio 15.7 RATIO (10-20); Calcium,Total 9.5 mg/dL (8.5-10.1); Chloride 109 mmol/L (98-107); Creatinine, Serum 0.76 mg/dL (0.55-1.02); EST Glomerular Filtration Rate 78 mL/min (>60); Est Glom Filt Rate - Afr Amer 94 mL/min (>60); Glucose 175 mg/dL (74-106); Potassium 3.7 mmol/L (3.5-5.1); Sodium Level 141 mmol/L (136-145)
[2020-01-11 16:43] LABS: Thyroid Stim Hormone (TSH) 1.79 uIU/mL (0.358-3.74)
[2020-01-11] MEDS: Ciprofloxacin 400 MG/200 ML BAG 200 MG IV (16:57)
[2020-01-11 17:08] VITALS: BP 159/77; PULSE 72; RESP 16; O2SAT 93
--- NOTE | 2020-01-11 17:09 | ED.RN ---
Pt sts that symptoms of depression and auditory hallucinations have been going on much longer than the symptoms of my UTI. She was seen in the ED on Sunday with similar symptoms, urine was not infected at that time. Pt sts My dies ten years ago and I have been bottling all of this up. I also have a lot of stressors right now. I think this is more than a urinary tract infection, and I think I need phycological help. Pt informed of plan of care, and assured that her physical and psychological needs will both be evaluated and treated as needed.
[2020-01-11 18:00] VITALS: PULSE 78; RESP 16
[2020-01-11 19:44] VITALS: BP 135/76; PULSE 76; RESP 16
[2020-01-11] MEDS: OLANZapine 5 MG/TAB TAB.RAPDIS 10 MG PO (21:31)
[2020-01-11 21:34] VITALS: BP 143/67; PULSE 78; RESP 18
--- NOTE | 2020-01-11 22:24 | EKG12_ITS ---
Test Reason : MHC Blood Pressure : / mmHG Vent. Rate : 073 BPM Atrial Rate : 073 BPM P-R Int : 166 ms QRS Dur : 098 ms QT Int : 414 ms P-R-T Axes : 040 012 046 degrees QTc Int : 456 ms Normal sinus rhythm Nonspecific T wave abnormality Abnormal ECG Confirmed by LUCIUS ACOSTA, ALMA DELIA ([id number]), publications editor SUSIE LANCE ([id number]) on 01/19/2020 8:36:21 A M Referred By: DUNCAN Confirmed By:KATHRYN KAN MD
[2020-01-11 23:23] VITALS: PULSE 74; RESP 16
[2020-01-12] VITALS (9 sets, daily range): BP systolic 126–137; BP diastolic 68–76; PULSE 61–74; RESP 15–16; TEMP 36.2; O2SAT 97–98
--- NOTE | 2020-01-12 07:45 | NURSING ---
PER TREY WITH CRISIS; [facility] PT DUE TO UTI
--- NOTE | 2020-01-12 10:48 | ED.RN ---
PER ANITA [facility] WITH CRISIS CALLED GIVING ACCEPTANCE FOR [facility]. WILL NOTIFY ME WHEN OK TO SET UP TRANSPORT.
--- NOTE | 2020-01-12 11:02 | CM.ED ---
Social Work Telephone call from Queta musa. Queta reporting that patient has been accepted at [facility]. [employer] is requesting for pink slip and COVID screening tool from [employer] to be completed and faxed prior to being able to provide accepting information. COVID screen completed and faxed to [employer] along with [employer]. Medical team updated. Liu Tolbert MSW, MAMTAS
--- NOTE | 2020-01-12 11:16 | CM.ED ---
Social Work Telephone call from Jade Lacy. Patient has been accepted by Dr. Daniels to the [facility] room 102A. Nurse to call report to [phone]. Medical team, patient and patient son, Edwin updated. Liu Tolbert CURATOR [employer], [employer]
[2020-01-12] MEDS: Ciprofloxacin 500 MG Tablet PO (12:30)
[2020-01-12] MEDS: Lisinopril 40 MG Tablet PO (12:58)
[2020-01-12] MEDS: Metoprolol(XL)Succ 25 MG Tablet PO (12:58)
[2020-01-12] MEDS: metFORMIN HCl 500 MG Tablet PO (12:58)
== END 2020-01-12 14:21 ==
PROVIDERS: Emergency Medicine; Emergency Provider Physician Assistant Medical; PCP Family Medicine
DX: F23 Brief psychotic disorder (principal); N39.0 Urinary tract infection, site not specified; F32.9 Major depressive disorder, single episode, unspecified; E11.9 Type 2 diabetes mellitus without complications; I10 Essential (primary) hypertension; E78.5 Hyperlipidemia, unspecified; Z79.84 Long term (current) use of oral hypoglycemic drugs; Z79.899 Other long term (current) drug therapy
CPT/HCPCS: 70450; 71045; 80048; 80307; 80320; 81001; 84443; 85025; 87086; 87088; 87186; 87635; 93005; 96365; 96366; 99285; J7030; A4216; G0480; J0744; U0003

== ENCOUNTER → 2020-02-13 12:43 | Outpatient (CLI) | payer MEDICARE, SELFPAY ==
--- NOTE | 2020-02-13 12:47 | ECHOD_ITS ---
Reason For Study: retinal artery occlusion Procedure This was a 2D Doppler, Color Flow transthoracic echocardiogram. The study was technically difficult. Exam performed in department. Left Ventricle Normal LV size. Left ventricular systolic function is normal. The estimated ejection fraction is 65 %. Diastolic function is indeterminate. No regional wall motion abnormalities noted. Right Ventricle Normal RV size. Normal systolic function. Atria The left atrium is mildly enlarged. Normal right atrium. No doppler evidence for ASD. Mitral Valve There is no mitral annular calcification. Normal mitral valve. Mild (1+) mitral valve insufficiency. Tricuspid Valve Normal tricuspid valve. Trivial tricuspid valve insufficiency. Right ventricular systolic pressure estimated to be 32 mmHg. Aortic Valve Trisinus/trileaflet aortic valve. Mild focal aortic valve calcification. Mild aortic stenosis. Trivial aortic valve insufficiency. Pulmonic Valve The pulmonic valve is not well visualized. Great Vessels Normal sized aortic root. Pericardium/Pleural No pericardial effusion. MMode/2D Measurements & Calculations RVDd: 3.6 cm LVOT diam: 2.0 cm Ao root diam: 3.3 cm LVOT area: 3.1 cm2 LAV(MOD-bp): 85.1 ml LA dimension(2D): 3.9 cm LA A4 area: 24.4 cm2 LAV(MOD-bp) Indexed: 39.0 ml/m2 LAV(MOD-sp2): 88.6 ml LAV(MOD-sp4): 74.9 ml RA A4 area: 18.6 cm2 Time Measurements MV dec time: 0.22 sec Doppler Measurements & Calculations MV E max shay: 96.6 cm/sec Lat Peak E' Shay: 8.8 cm/sec Med Peak E' Shay: 7.7 cm/sec MV A max shay: 66.4 cm/sec E/E' lat: 10.9 E/E' med: 12.6 MV E/A: 1.5 Ao V2 max: 228.9 cm/sec LV V1 max: 122.8 cm/sec SV(LVOT): 89.8 ml Ao max P.0 mmHg LV V1 max P.0 mmHg Ao V2 mean: 168.5 cm/sec LV V1 mean P.0 mmHg Ao mean P.1 mmHg LV V1 mean: 98.1 cm/sec Ao V2 VTI: 48.4 cm LV V1 VTI: 28.7 cm JACEY(I,D): 1.9 cm2 JACEY(V,D): 1.7 cm2 PA V2 max: 133.7 cm/sec TR max shay: 270.3 cm/sec TR max P.2 mmHg Interpretation Summary The study was technically difficult. Left ventricular systolic function is normal. The estimated ejection fraction is 65 %. The left atrium is mildly enlarged. Mild (1+) mitral valve insufficiency. Trivial tricuspid valve insufficiency. Mild focal aortic valve calcification. Mild aortic stenosis. Trivial aortic valve insufficiency. Right ventricular systolic pressure estimated to be 32 mmHg. Diastolic function is indeterminate. Ordering Physician: Fito Mariano Referring Physician: Sylvain Marie Performed By: Darcie Hewitt RDCS, RVT
--- NOTE | 2020-02-13 12:47 | CDU_ITS ---
Reason For Study: Carotid stenosis Rt. Velocities/BP Lt. Velocities/BP Prox CCA 76/12.1 cm/sec. Prox CCA 73.9/6.9 cm/sec. Mid CCA 66.9/13.4 cm/sec. Mid CCA 70.6/6.9 cm/sec. Dist CCA 50.9/11.3 cm/sec. Dist CCA 65.1/6.9 cm/sec. Prox ICA 70.7/17.9 cm/sec. Prox ICA 59.7/11.3 cm/sec. Mid ICA 130.2/27.9 cm/sec. Mid ICA 75/16.8 cm/sec. Dist ICA 70.4/16.3 cm/sec. Dist ICA 76.2/17.9 cm/sec. Rt. ICA/CCA = 1.9. Lt. ICA/CCA = 1.1. Prox ECA 91.3/2.8 cm/sec. Prox ECA 89.3 cm/sec. Rt. Vert. 99.2/17 cm/sec. Lt. Vert. 60.7/11.6 cm/sec. Right Extracranial There is intimal thickening but no significant atherosclerotic plaque noted in the right common carotid artery. There is intimal thickening but no significant atherosclerotic plaque noted in the right internal carotid artery. The right internal carotid artery is very tortuous. There is intimal thickening but no significant atherosclerotic plaque noted in the right external carotid artery. Antegrade flow is noted in the right vertebral artery. Left Extracranial There is intimal thickening but no significant atherosclerotic plaque noted in the left common carotid artery. There is intimal thickening but no significant atherosclerotic plaque noted in the left internal carotid artery. There is intimal thickening but no significant atherosclerotic plaque noted in the left external carotid artery. Antegrade flow is noted in the left vertebral artery. Procedure Carotid Duplex 92622. This is a Carotid Duplex examination using B-mode, color flow and specral Doppler. Exam performed in department. Interpretation Summary No significant atherosclerotic plaque or stenosis noted in the internal carotid arteries bilaterally. Mildly elevated velocities in the right mid-internal carotid artery appear to be related to tortuosity. Flow within the vertebral arteries is antegrade bilaterally. Ordering Physician: Fito Mariano Referring Physician: Arturo Marie Performed By: Becki Tang RVT
== END ==
PROVIDERS: PCP Family Medicine; Referring Provider Ophthalmology; Visit Provider Ophthalmology
DX: H34.231 Retinal artery branch occlusion, right eye (principal); I34.0 Nonrheumatic mitral (valve) insufficiency
CPT/HCPCS: 93306; 93880

== ENCOUNTER → 2020-03-02 09:13 | Outpatient (CLI) | payer MEDICARE, SELFPAY ==
--- NOTE | 2020-03-02 12:08 | STRESSREP ---
Stress Test Report Date: 03-02-2020 Procedure: Exercise tolerance test Indications: Shortness of breath/dyspnea on exertion; aortic valve stenosis Consent: Per the patient Procedure: The patient exercised on a Modified Jer protocol for 3 minutes and 39 seconds completing stage I and 39 seconds of stage II achieving a peak heart rate of 139 bpm (97% predicted maximal heart rate) with a peak blood pressure 150/80 mmHg and a peak MET capacity of approximately 3 MET's. The baseline ECG demonstrated normal sinus rhythm. The peak exercise ECG demonstrated somatic/motion artifact with no obvious ECG changes. There was a rare PAC pretest and an isolated PVC during exercise and an occasional PAC during recovery. There was notation of a brief episodes of an irregular narrow complex tachycardia during recovery was spontaneous resolution to baseline. The functional capacity was considered decreased. The patient had complaint of mild chest discomfort during exercise and shortness of breath/dyspnea during exercise with spontaneous resolution and recovery. The examination was discontinued secondary to dyspnea and leg discomfort. Impression: 1. Technically adequate (percent predicted maximal heart rate greater than 85%) exercise tolerance test 2. Peak exercise ECG with somatic/motion artifact with no obvious ECG changes 3. There was a rare PAC pretest and an isolated PVC during exercise and an occasional PAC during recovery. There was notation of a brief episodes of an irregular narrow complex tachycardia during recovery was spontaneous resolution to baseline. This note was generated with Filter[employer] software. It may contain incorrect words, spelling, and punctuation that were not noted in checking the note before signing.
== END ==
PROVIDERS: PCP Family Medicine; Referring Provider Family Medicine; Visit Provider Family Medicine
DX: R06.02 Shortness of breath (principal)
CPT/HCPCS: 93017

== ENCOUNTER 2020-06-10 12:00 | Outpatient (RCR) | payer MEDICARE, SELFPAY ==
[2020-06-10] MEDS: COVID-19 VACC, MRNA(PFIZER)/PF 30 MCG/0.3 ML SYRINGE IM (10:33)
[2020-07-01] MEDS: COVID-19 VACC, MRNA(PFIZER)/PF 30 MCG/0.3 ML SYRINGE IM (10:24)
== END 2020-09-07 23:59 ==
LOC: IMMUN 12:00
PROVIDERS: PCP Family Medicine; Visit Provider Family Medicine
DX: Z23 Encounter for immunization (principal)
CPT/HCPCS: 0001A; 0002A; 91300

== ENCOUNTER 2021-05-01 21:50 | Emergency (ER) | payer MEDICARE, SELFPAY ==
[2021-05-01 21:51] VITALS: BP 172/80; PULSE 96; RESP 18; TEMP 36.6; O2SAT 98; BMI 40.1
--- NOTE | 2021-05-01 22:40 | RAD_ITS ---
STUDY: X-RAY - UNILATERAL RIBS ( RIGHT ) WITH CHEST REASON FOR EXAM: Female, 81 years old. fall TECHNIQUE - RIBS: 5 view(s) of the ribs. TECHNIQUE - CHEST: 1 COMPARISON: 01/11/2020. FINDINGS - RIBS: Normal visualized ribs without a demonstrated fracture. FINDINGS - CHEST: The lungs are clear and expanded. There is no demonstrated pleural abnormality. Normal size heart. Normal mediastinum and danielle. Normal visualized pulmonary arteries. Normal visualized aortic arch and descending thoracic aorta. Normal visualized thoracic spine. Normal visualized ribs, clavicles, and shoulders. There is no demonstrated abnormality of the visualized soft tissue structures of the upper abdomen. RAD/Ribs Uni Min 3V w/PA Chest IMPRESSION: RIBS: Normal x-ray examination of the ribs. CHEST: Normal x-ray examination of the chest. Electronically Signed: Darcie Hall MD at 23:26 EST Reading Location ID and State: [id number] / Tel , Service support ,
--- NOTE | 2021-05-01 22:44 | EX.ED.DYSGE1 ---
HPI History of Present Illness Chief Complaint: Fall Detail of Chief Complaint: Right rib pain Informant: patient Onset/Context/Timing Onset: Days (9 days ago) Context: Gradual Onset Timing: Waxes and wanes Current Severity: Moderate Maximum Severity: Moderate Narrative Narrative: Patient presents via EMS for evaluation of right rib pain. She fell on concrete slab 9 days ago. She has been complaining of right rib pain. She was seen in urgent care where x-ray was reportedly negative. She did take Tylenol earlier this morning that helped her pain for a while but called squad tonight due to increased pain. She denies striking her head. No loss of consciousness. She is not on anticoagulants. [facility] Medical History Acute kidney injury Diabetes mellitus Dyslipidemia Esophageal spasm Gastroenteritis GERD (gastroesophageal reflux disease) Hiatal hernia HTN (hypertension) Hypokalemia Metabolic acidosis Thrombocytopenia Home Medications lisinopril 40 mg PO DAILY 01/28/13 [History Last Taken 04/01/18] glimepiride 4 mg tablet 4 mg PO BID tab 07/05/17 [History Last Taken 04/01/18] metformin 500 mg tablet 500 mg PO UD tab 07/05/17 [History Last Taken 04/01/18] furosemide 80 mg PO DAILY PRN 02/01/18 [History Last Taken Unknown] acetaminophen [Tylenol Extra Strength] 1,000 mg PO PRN PRN 04/01/18 [History Last Taken 03/31/18] hydrochlorothiazide 25 mg PO DAILY 04/01/18 [History Last Taken Unknown] ibuprofen 200 mg PO PRN PRN 04/01/18 [History Last Taken 04/01/18] metoprolol succinate [Toprol XL] 25 mg PO DAILY 04/01/18 [History Last Taken Unknown] cholecalciferol (vitamin D3) 4,000 unit PO DAILY 01/11/20 [History Last Taken Unknown] lidocaine [Lidoderm] 1 patch TOPICAL DAILY #6 ea 05/01/21 [Rx Last Taken Unknown] Allergy/AdvReac Type Severity Reaction Status Date / Time celecoxib [From Celebrex] Allergy Unknown Verified 05/01/21 21:59 codeine Allergy Unknown Verified 05/01/21 21:59 niacin Allergy Unknown Verified 05/01/21 21:59 Penicillins Allergy Unknown Verified 05/01/21 21:59 prednisone Allergy Unknown Verified 05/01/21 21:59 Sulfa (Sulfonamide Allergy Unknown Verified 05/01/21 21:59 Antibiotics) Family History Mother Asthma Father Heart disease Hypertension Arthritis Surgical History History of laparoscopic cholecystectomy history ORIF left wrist History repair broken nose Social History Smoking Status: Never smoker alcohol intake: never substance use type: does not use ROS ROS ED Constitutional Constitutional ED: Denies chills or fever(s) Eyes Eyes: Denies change in vision ENT ENT ED: Denies sore throat Cardiovascular Cardiovascular: Reports chest pain and other Details: Right lateral rib pain. Respiratory/Chest Respiratory/Chest: Denies cough or dyspnea Gastrointestinal Gastrointestinal: Denies abdominal pain, diarrhea, nausea or vomiting Musculoskeletal Musculoskeletal: Reports back pain and other Details: Rib pain Integumentary Denies rash Allergic/Immunologic Allergic/Immunologic ED: Denies urticaria EXAM Physical Exam Const Vital Signs: 05/01/21 21:51 05/01/21 22:01 Temperature 97.8 F Temperature Source Oral Pulse Rate 96 Respiratory Rate 18 Respiratory Effort Normal Non-Labored Respiratory Depth Normal Respiratory Pattern Normal Blood Pressure 172/80 H Blood Pressure Mean 110 Pulse Ox 98 Oxygen Delivery Method Room Air Room Air Positive well nourished and well developed General Appearance ED: well developed HEENT Reports moist mucous membranes Eyes PERRL and EOMs intact bilaterally Neck supple Chest Wall inspection of chest normal Chest Narrative: Reproducible tenderness to the right lateral chest wall. No crepitus. No erythema, abrasion, ecchymosis. Resp normal respiratory effort and clear to auscultation bilaterally Cardio regular rate and regular rhythm GI non-tender Palpation: soft Extremity normal to inspection Neuro oriented x3 Sensorium / Orientation: alert Skin no rashes or lesions noted MDM MDM MDM Narrative Medical decision making narrative: Patient did not want anything strong for pain. She was given Tylenol and a Lidoderm patch. Rib series with chest x-ray obtained. Radiography Diagnostic Testing: Clinical Impression(s) from Imaging Studies Ribs w/Chest X-Ray 05/01/21 22:40 IMPRESSION: RIBS: Normal x-ray examination of the ribs. CHEST: Normal x-ray examination of the chest. Electronically Signed: Darcie Hall MD at 23:26 EST , Treatment and Re-Evaluation Comments:: X-rays per my interpretation but no obvious fracture. No pneumothorax. Radiology to rotation is reviewed and agrees. On repeat evaluation patient reports mild improvement in her pain. I did recommend she take Tylenol regularly for the next 2 to 3 days. She will be given a prescription for Lidoderm patches. Discharge Plan Triage Chief Complaint: Fall ED Provider: Bettye Brice Dx/Rx/DC Orders Clinical Impression: Contusion of rib Instructions: ED Contusion, Rib Prescriptions: New lidocaine [Lidoderm] 5 % adhesive patch,medicated 1 patch topical DAILY Qty: 6 RF: 0 No Action lisinopril 40 MG tablet 40 mg PO DAILY RF: 0 metformin 500 mg tablet 500 mg PO UD RF: 0 glimepiride 4 mg tablet 4 mg PO BID RF: 0 furosemide 80 MG tablet 80 mg PO DAILY PRN (Reason: edema) RF: 0 acetaminophen [Tylenol Extra Strength] 500 MG tablet 1,000 mg PO PRN PRN (Reason: Pain) RF: 0 ibuprofen 200 MG tablet 200 mg PO PRN PRN (Reason: Pain) RF: 0 metoprolol succinate [Toprol XL] 25 MG tablet extended release 24 hr 25 mg PO DAILY RF: 0 hydrochlorothiazide 25 MG tablet 25 mg PO DAILY RF: 0 cholecalciferol (vitamin D3) 2,000 UNIT capsule 4,000 unit PO DAILY RF: 0 Primary Care Provider: Arturo Marie Referrals: Arturo Marie MD [Primary Care Provider] - 1 Week if not improving Disposition Disposition: Home, Self Care
[2021-05-01] MEDS: Lidocaine 5% Patch 1 PATCH TOPICAL (22:53)
[2021-05-01] MEDS: Acetaminophen 500 MG Tablet 1000 MG PO (22:53)
--- NOTE | 2021-05-02 12:30 | CASEMGMT ---
SUSU BILLY ED follow-up: SUSU BILLY placed call to patient's telephone number listed on demographics with no answer. Voicemail has not been setup, unable to leave message. SUSU Nelson CM
== END 2021-05-01 23:39 | disposition home or self-care (01) ==
PROVIDERS: Emergency Provider Emergency Medicine; PCP Family Medicine; Visit Provider Emergency Medicine
DX: S20.211A Contusion of right front wall of thorax, initial encounter (principal); E11.9 Type 2 diabetes mellitus without complications; W19.XXXA Unspecified fall, initial encounter; I10 Essential (primary) hypertension; E78.5 Hyperlipidemia, unspecified; K21.9 Gastro-esophageal reflux disease without esophagitis; Z79.84 Long term (current) use of oral hypoglycemic drugs; Z79.899 Other long term (current) drug therapy
CPT/HCPCS: 71101; 99285

== ENCOUNTER 2021-10-05 22:42 | Emergency (ER) | payer MEDICARE, SELFPAY ==
[2021-10-05 22:43] VITALS: BP 173/110; PULSE 113; RESP 15; TEMP 35.9; O2SAT 96; BMI 39.1
[2021-10-05] MEDS: Tetracaine/Benzocaine/Butamben 1 APPLIC TOPICAL (23:08)
[2021-10-05] MEDS: Clindamycin HCl 150 MG Capsule 300 MG PO (23:09)
--- NOTE | 2021-10-05 23:11 | ED.VIS.DENTA ---
HPI History of Present Illness Chief Complaint: Dental Informant: patient Onset/Context/Timing Onset: Days (4) Context: Gradual Onset Timing: Continuous Quality: Aching throbbing Location: Left maxillary teeth and left face Current Severity: Severe Maximum Severity: Severe Worsened by: Palpation, chewing Relieved by: - (Nothing, using [id number] medications and azithromycin that she had leftover from something else) Associated Symptoms Assocated Symptom - Dental: face swelling; Negative for fever Narrative Narrative: Dental pain and infection has progressively worsened despite taking a Z-Newton that she had for something else and did not take. She has taken 3 doses of the azithromycin so far, once daily for 3 days including today. Foul taste in her mouth at times. No bleeding. [facility] Medical History Acute kidney injury Diabetes mellitus Dyslipidemia Esophageal spasm Gastroenteritis GERD (gastroesophageal reflux disease) Hiatal hernia HTN (hypertension) Hypokalemia Metabolic acidosis Thrombocytopenia Home Medications lisinopril 40 mg tablet 40 mg PO DAILY blood pressure 01/28/13 [History Last Taken 04/01/18] glimepiride 4 mg tablet 4 mg PO BID DIABETES 07/05/17 [History Last Taken 04/01/18] metformin 500 mg tablet 500 mg PO UD diabetes 07/05/17 [History Last Taken 04/01/18] furosemide 80 mg tablet 80 mg PO DAILY PRN edema 02/01/18 [History Last Taken Unknown] acetaminophen 500 mg tablet (Tylenol Extra Strength) 1,000 mg PO PRN PRN Pain 04/01/18 [History Last Taken 03/31/18] hydrochlorothiazide 25 mg tablet 25 mg PO DAILY diuretic 04/01/18 [History Last Taken Unknown] ibuprofen 200 mg tablet 200 mg PO PRN PRN Pain 04/01/18 [History Last Taken 04/01/18] metoprolol succinate 25 mg tablet,extended release 24 hr (Toprol XL) 25 mg PO DAILY blood pressure 04/01/18 [History Last Taken Unknown] cholecalciferol (vitamin D3) 50 mcg (2,000 unit) capsule 4,000 unit PO DAILY 01/11/20 [History Last Taken Unknown] lidocaine 5 % topical patch (Lidoderm) 1 patch topical DAILY #6 ea 05/01/21 [Rx Last Taken Unknown] clindamycin HCl 150 mg capsule 300 mg PO 4X/DAY #80 CAPSULES 10/05/21 [Rx Last Taken Unknown] hydrocodone-acetaminophen 5-325mg 5mg-325mg 1 tab PO Q4H PRN PRN Pain 2 days #10 TABLETS 10/05/21 [Rx Last Taken Unknown] Allergy/AdvReac Type Severity Reaction Status Date / Time celecoxib [From Celebrex] Allergy Unknown Verified 05/01/21 21:59 codeine Allergy Unknown Verified 05/01/21 21:59 niacin Allergy Unknown Verified 05/01/21 21:59 Penicillins Allergy Unknown Verified 05/01/21 21:59 prednisone Allergy Unknown Verified 05/01/21 21:59 Sulfa (Sulfonamide Allergy Unknown Verified 05/01/21 21:59 Antibiotics) Family History Mother Asthma Father Heart disease Hypertension Arthritis Surgical History History of laparoscopic cholecystectomy history ORIF left wrist History repair broken nose Social History Smoking Status: Never smoker alcohol intake: never substance use type: does not use ROS ROS ED Constitutional Constitutional ED: Denies chills or fever(s) Eyes Eyes: Denies change in vision or double vision ENT ENT ED: Reports dental pain and facial pain; Denies nasal congestion, nasal discharge, sinus pain or throat swelling Cardiovascular Cardiovascular: Denies chest pain or palpitations Respiratory/Chest Respiratory/Chest: Denies cough or dyspnea Integumentary Denies abscess or rash Neurologic Neurologic: Denies headache(s), paresthesias or weakness EXAM Physical Exam Const Vital Signs: 10/05/21 22:43 Temperature 96.6 F L Temperature Source Temporal Pulse Rate 113 H Respiratory Rate 15 Blood Pressure 173/110 H Blood Pressure Mean 131 Pulse Ox 96 Oxygen Delivery Method Room Air Positive well nourished and well developed General Appearance ED: well developed and NAD HEENT HEENT Narrative: Very poor dentition especially in the maxillary row, with decayed teeth in the left maxillary area with some swelling of the gums and the left maxillary face consistent with an abscess, that appears to be pointing at the oromucosa above the diseased dentition. No active discharge. Face and Sinus: sinuses nontender Throat: posterior oropharynx normal Eyes PERRL and EOMs intact bilaterally Neck no lymphadenopathy and supple Resp normal respiratory effort Extremity General Extremety ED: Yes edema General Extremity: edema bilateral lower extremity Details: moderate (With changes of stasis dermatitis bilaterally, symmetric) Neuro oriented x3 and CN's II-XII intact bilaterally Sensorium / Orientation: alert Gait (Neuro): normal gait Psych mental status grossly normal and thought process normal Skin no rashes or lesions noted and no wounds MDM MDM MDM Narrative Medical decision making narrative: Patient was amenable to attempting a needle aspiration of this abscess. Unfortunately did not yield any purulent material see the procedure note. She was started on clindamycin (allergic to penicillin), given prescription for analgesics, and her blood pressure is up I recommended that she have it rechecked when she is not in so much pain, as she really is uncomfortable tonight. She is comfortable with that plan, and following up with a dentist, she was given a resource list and she does not have 1. Procedures Other Procedures Procedure(s): Dental abscess aspiration: After verbal consent from the patient, topical prep with Cetacaine spray, attempted aspiration with an 18-gauge needle external to the dentition/gingiva, after probing in 3 different directions, there is no purulent material able to be aspirated even when gently palpating externally on the face. Tolerated well no complications, rinsing with ice water afterwards, airway intact. Discharge Plan Triage Chief Complaint: Dental ED Provider: Fer Choudhury Dx/Rx/DC Orders Clinical Impression: Abscess, dental, Infected dental caries Instructions: ED Dental Abscess Prescriptions: New hydrocodone-acetaminophen [hydrocodone-acetaminophen] 1 TABLET tablet 1 tab PO Q4H PRN PRN (Reason: Pain) 2 Days Qty: 10 0RF clindamycin HCl 150 MG capsule 300 mg PO 4X/DAY Qty: 80 0RF No Action lisinopril 40 MG tablet 40 mg PO DAILY Label Comments: blood pressure metformin 500 mg tablet 500 mg PO UD Label Comments: diabetes Rx Instructions: 2 TABS AT BREAKFAST; 1 TAB AT LUNCH; AND 2 TABS AT DINNER. glimepiride 4 mg tablet 4 mg PO BID Label Comments: blood sugar furosemide 80 MG tablet 80 mg PO DAILY PRN (Reason: edema) acetaminophen [Tylenol Extra Strength] 500 MG tablet 1,000 mg PO PRN PRN (Reason: Pain) ibuprofen 200 MG tablet 200 mg PO PRN PRN (Reason: Pain) metoprolol succinate [Toprol XL] 25 MG tablet extended release 24 hr 25 mg PO DAILY hydrochlorothiazide 25 MG tablet 25 mg PO DAILY Label Comments: blood pressure/diuretic cholecalciferol (vitamin D3) 2,000 UNIT capsule 4,000 unit PO DAILY lidocaine [Lidoderm] 5 % adhesive patch,medicated 1 patch topical DAILY Qty: 6 0RF Rx Instructions: leave on most painful area for up to 12 hrs Primary Care Provider: Arturo Marie Referrals: Arturo Marie MD [Primary Care Provider] - Dentist,Your [STAFF PHYSICIAN] - As soon as possible (See attached resource list if you need it) Activity Restrictions/Additional Instructions: Clindamycin can have an increased risk of causing antibiotic associated diarrhea and C. difficile, in order to minimize this eat yogurt or take a probiotic daily while on the antibiotic. Discontinue the azithromycin you were taking. Disposition Disposition: Home, Self Care
[2021-10-05 23:48] VITALS: BP 160/71; PULSE 83; RESP 16
== END 2021-10-05 23:48 | disposition home or self-care (01) ==
PROVIDERS: Emergency Provider Emergency Medicine; PCP Family Medicine; Visit Provider Emergency Medicine
DX: K04.7 Periapical abscess without sinus (principal); E11.9 Type 2 diabetes mellitus without complications; K08.89 Other specified disorders of teeth and supporting structures; K02.9 Dental caries, unspecified; I10 Essential (primary) hypertension; E78.5 Hyperlipidemia, unspecified; K21.9 Gastro-esophageal reflux disease without esophagitis; Z79.84 Long term (current) use of oral hypoglycemic drugs; Z79.899 Other long term (current) drug therapy
CPT/HCPCS: 41800; 99283

== ENCOUNTER 2021-10-27 20:50 | Emergency (ER) | payer MEDICARE, SELFPAY ==
[2021-10-27 20:54] VITALS: BP 171/100; PULSE 88; RESP 27; TEMP 36.7; O2SAT 95; BMI 40.0
--- NOTE | 2021-10-27 21:26 | EKG12_ITS ---
Test Reason : CP Blood Pressure : / mmHG Vent. Rate : 083 BPM Atrial Rate : 083 BPM P-R Int : 174 ms QRS Dur : 082 ms QT Int : 386 ms P-R-T Axes : 050 013 018 degrees QTc Int : 453 ms Normal sinus rhythm Normal ECG Confirmed by LUCIUS ACOSTA, ALMA DELIA ([id number]), assignment editor SUSIE LANCE ([id number]) on 10/31/2021 11:30:51 AM Referred By: AR Confirmed By:KATHRYN KAN MD
--- NOTE | 2021-10-27 21:30 | RAD_ITS ---
STUDY: X-RAY CHEST REASON FOR EXAM: Female, 81 years old. Chest pain TECHNIQUE: Portable, upright, AP chest radiograph COMPARISON: 05/01/2021 FINDINGS: The lungs are clear and expanded. There is no demonstrated pleural abnormality. Normal size heart. Normal mediastinum and danielle. Normal visualized pulmonary arteries. There is atherosclerotic tortuosity of the aortic arch and descending thoracic aorta. There is no demonstrated abnormality of the visualized soft tissue structures of the upper abdomen. RAD/Chest 1 View (Portable) IMPRESSION: No acute abnormal cardiopulmonary finding. Electronically Signed: Devin Stephens MD at 21:52 EDT ,
[2021-10-27 21:40] VITALS: O2SAT 97
[2021-10-27 21:43] LABS: Absolute Lymphocyte Count 2.58 X10^3/uL (0.83-4.51); Absolute Neutrophil Count 4.1 X10^3/uL (2.0-7.7); Basophil# 0.07 X10^3/uL; Basophil% 0.9 % (0-1); Eosinophil# 0.47 X10^3/uL; Eosinophils% 5.9 % (0-5); Hematocrit 40.3 % (37-47); Hemoglobin 13.7 g/dL (12.0-15.0); Lymphocyte # 2.58 X10^3/ul (0.83-4.51); Lymphocyte % 32.5 % (19-41); Mean Corpuscular Hgb 32.7 pg (27.0-32.0); Mean Corpuscular Volume 96.2 fL (81-99); Mean Platelet Vol. 11.2 fl (6.2-12.0); Monocyte% 8.8 % (0-10); NRBC Flagged by Analyzer 0 % (0-5); Neutrophil # 4.12 X10^3/uL (2.7-7.7); Neutrophil % 51.8 % (47-70); Platelet Count 214 K/mm3 (150-450); RBC Distribution Width CV 13.4 % (11.6-14.6); RBC Distribution Width SD 47.7 fl (35.1-43.9); Red Blood Count 4.19 M/mm3 (4.2-5.4)
--- NOTE | 2021-10-27 21:45 | ED.RN ---
PATIENT GIVEN 4 BABY ASPIRIN BY EMS PRIOR TO ARRIVAL TODAY IN ED. DR. SANDER GANDHI.
[2021-10-27 22:31] LABS: Anion Gap 7 (5-15); BUN 22 mg/dL (7-18); BUN/Creat Ratio 21.4 RATIO (10-20); Calcium,Total 9.4 mg/dL (8.5-10.1); Chloride 102 mmol/L (98-107); Creatinine, Serum 1.03 mg/dL (0.55-1.02); EST Glomerular Filtration Rate 55 mL/min (>60); Est Glom Filt Rate - Afr Amer 66 mL/min (>60); Estimated Creatinine Clearance 41.46 ml/min; Glucose 199 mg/dL (74-106); Potassium 3.9 mmol/L (3.5-5.1); Sodium Level 140 mmol/L (136-145); Troponin-I HS (w/2H Reflex) 20 pg/mL (3.0-54.0)
[2021-10-27 23:00] VITALS: BP 135/60; PULSE 82; RESP 18; O2SAT 95
--- NOTE | 2021-10-27 23:33 | ED.VIS.CHEST ---
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 She states that she began having chest pressure today and began feeling flushed. While she is being evaluated for palpitations, she states she is scheduled for heart catheterization in October, next month. She may have been having these chest pressures over the last few days also but it intensified today. She denies any leg swelling. She does state that on occasion she feels shortness of breath. Her symptoms are improving. [facility] Medical History Acute kidney injury Diabetes mellitus Dyslipidemia Esophageal spasm Gastroenteritis GERD (gastroesophageal reflux disease) Hiatal hernia HTN (hypertension) Hypokalemia Metabolic acidosis Osteoporosis Thrombocytopenia Home Medications lisinopril 40 mg tablet 40 mg PO DAILY blood pressure 01/28/13 [History Last Taken 04/01/18] glimepiride 4 mg tablet 4 mg PO BID DIABETES 07/05/17 [History Last Taken 04/01/18] metformin 500 mg tablet 500 mg PO UD diabetes 07/05/17 [History Last Taken 04/01/18] furosemide 80 mg tablet 80 mg PO DAILY PRN edema 02/01/18 [History Last Taken Unknown] acetaminophen 500 mg tablet (Tylenol Extra Strength) 1,000 mg PO PRN PRN Pain 04/01/18 [History Last Taken 03/31/18] hydrochlorothiazide 25 mg tablet 25 mg PO DAILY diuretic 04/01/18 [History Last Taken Unknown] ibuprofen 200 mg tablet 200 mg PO PRN PRN Pain 04/01/18 [History Last Taken 04/01/18] metoprolol succinate 25 mg tablet,extended release 24 hr (Toprol XL) 25 mg PO DAILY blood pressure 04/01/18 [History Last Taken Unknown] cholecalciferol (vitamin D3) 50 mcg (2,000 unit) capsule 4,000 unit PO DAILY 01/11/20 [History Last Taken Unknown] lidocaine 5 % topical patch (Lidoderm) 1 patch topical DAILY #6 ea 05/01/21 [Rx Last Taken Unknown] clindamycin HCl 150 mg capsule 300 mg PO 4X/DAY #80 CAPSULES 10/05/21 [Rx Last Taken Unknown] hydrocodone-acetaminophen 5-325mg 5mg-325mg 1 tab PO Q4H PRN PRN Pain 2 days #10 TABLETS 10/05/21 [Rx Last Taken Unknown] Allergy/AdvReac Type Severity Reaction Status Date / Time acetaminophen [From Vicodin] Allergy Other Verified 10/27/21 20:59 celecoxib [From Celebrex] Allergy Unknown Verified 10/27/21 20:58 codeine Allergy Unknown Verified 10/27/21 20:58 hydrocodone [From Vicodin] Allergy Other Verified 10/27/21 20:59 morphine Allergy Other Verified 10/27/21 20:59 niacin Allergy Unknown Verified 10/27/21 20:58 Penicillins Allergy Unknown Verified 10/27/21 20:58 prednisone Allergy Unknown Verified 10/27/21 20:58 Sulfa (Sulfonamide Allergy Unknown Verified 10/27/21 20:58 Antibiotics) Family History Mother Asthma Father Heart disease Hypertension Arthritis Surgical History History of laparoscopic cholecystectomy history ORIF left wrist History repair broken nose Social History Smoking Status: Never smoker alcohol intake: never substance use type: does not use ROS ROS ED ROS Narrative Constitutional: No fever, no chills. Daphne flushed today. HEENT: No sore throat. No neck pain. No loss of vision. No rhinorrhea. Cardiovascular: Positive chest pressure chest pain. Ongoing evaluation for palpitations. No pedal edema. Respiratory: No cough, positive shortness of breath. Abdominal: No abdominal pain. No nausea. No vomiting. Genitourinary: No dysuria. No hematuria. Musculoskeletal: No myalgias. No arthralgias. Neurologic: No headaches. No dizziness. No lightheadedness. Skin: No rash. No change in color. Psychiatric: No depression. No anxiety. EXAM Physical Exam Narrative Exam Narrative: Afebrile. Vital signs noted. HEENT: Normocephalic. Atraumatic. PERRL, EOMI. Neck soft and supple. No point tenderness or step off. Cardiovascular: Regular rate and rhythm. No murmurs, rubs, or gallops appreciated. Respiratory: No tachypnea. Lungs clear to auscultation bilaterally. Gastrointestinal: Abdomen soft, nontender, with normoactive bowel sounds. No rebound or guarding. Neurological: Awake. Alert. Nonfocal, nonlateralizing. Hard of hearing. Skin: No rash. Normal color. No pallor. Musculoskeletal: No pedal edema. Full range of motion extremities. Const Vital Signs: 10/27/21 20:54 10/27/21 21:00 10/27/21 21:40 Temperature 98.1 F Temperature Source Oral Pulse Rate 88 Respiratory Rate 27 H Respiratory Effort Normal Blood Pressure 171/100 H Blood Pressure Mean 123 Pulse Ox 95 97 Oxygen Delivery Method Room Air Room Air 10/27/21 23:00 Temperature Temperature Source Pulse Rate 82 Respiratory Rate 18 Respiratory Effort Blood Pressure 135/60 H Blood Pressure Mean 85 Pulse Ox 95 Oxygen Delivery Method Room Air Heart Score History: Slightly/Non-Suspicious ECG: Normal Age: >/= 65 years Risk Factors: 1 or 2 Risk Factors Troponin: </= Normal Limit Score: 3 MDM MDM MDM Narrative Medical decision making narrative: Chest pain work-up was pursued. My interpretation of her EKG is that it demonstrates normal sinus rhythm at 83 bpm without ectopy or acute ST changes. No STEMI. CBC shows normal white count of 8.0, hemoglobin stable at 13.7, hematocrit 40.3. Normal platelet count of 214. Her initial troponin and electrolyte panel needed to be reordered. She has a BUN of 22 and a creatinine of 1.03. Initial high-sensitivity troponin 20. My interpretation of her chest x-ray shows no acute process, no pneumonia, no pneumothorax. As her second high-sensitivity troponin is currently pending, this will be checked by the overnight physician, Dr. Danny Bhardwaj, who will make final disposition on this patient. As long as there is not a large delta troponin greater than 7, I feel she would be able to be discharged safely home with follow-up to her assembly line supervisor. She is currently pain-free. Her blood pressure has come down to an acceptable level of 135/60. Disposition is pending. She is in stable condition. Lab Data Attestation: I reviewed the patient's lab results. Labs: Laboratory Results - last 24 hr 10/27/21 10/27/21 10/27/21 20:36 20:36 22:05 WBC 8.0 RBC 4.19 L Hgb 13.7 Hct 40.3 MCV 96.2 MCH 32.7 H MCHC 34.0 RDW Std Deviation 47.7 H RDW Coeff of Eduardo 13.4 Plt Count 214 MPV 11.2 Immature Gran % (Auto) 0.100 Neut % (Auto) 51.8 Lymph % (Auto) 32.5 [place] % (Auto) 8.8 Eos % (Auto) 5.9 H Baso % (Auto) 0.9 Absolute Neuts (auto) 4.1 Absolute Lymphs (auto) 2.58 Nucleated RBC % 0 Sodium Cancelled 140 Potassium Cancelled 3.9 Chloride Cancelled 102 Carbon Dioxide Cancelled 31.0 Anion Gap Cancelled 7 BUN Cancelled 22 H Creatinine Cancelled 1.03 H Estim Creat Clear Calc Cancelled 41.46 Est GFR (MDRD) Af Amer Cancelled 66 Est GFR (MDRD) Non-Af Cancelled 55 L BUN/Creatinine Ratio Cancelled 21.4 H Glucose Cancelled 199 H Calcium Cancelled 9.4 Troponin I High Sens Cancelled 20 Radiography Diagnostic Testing: Clinical Impression(s) from Imaging Studies Chest X-Ray 10/27/21 21:30 IMPRESSION: No acute abnormal cardiopulmonary finding. Electronically Signed: Devin Stephens MD at 21:52 EDT , Discharge Plan Triage Chief Complaint: Chest Pain ED Provider: Amos Oliva Dx/Rx/DC Orders Clinical Impression: Chest pain, SOB (shortness of breath), Palpitations Prescriptions: No Action lisinopril 40 MG tablet 40 mg PO DAILY Label Comments: blood pressure metformin 500 mg tablet 500 mg PO UD Label Comments: diabetes Rx Instructions: 2 TABS AT BREAKFAST; 1 TAB AT LUNCH; AND 2 TABS AT DINNER. glimepiride 4 mg tablet 4 mg PO BID Label Comments: blood sugar furosemide 80 MG tablet 80 mg PO DAILY PRN (Reason: edema) acetaminophen [Tylenol Extra Strength] 500 MG tablet 1,000 mg PO PRN PRN (Reason: Pain) ibuprofen 200 MG tablet 200 mg PO PRN PRN (Reason: Pain) metoprolol succinate [Toprol XL] 25 MG tablet extended release 24 hr 25 mg PO DAILY hydrochlorothiazide 25 MG tablet 25 mg PO DAILY Label Comments: blood pressure/diuretic cholecalciferol (vitamin D3) 2,000 UNIT capsule 4,000 unit PO DAILY lidocaine [Lidoderm] 5 % adhesive patch,medicated 1 patch topical DAILY Qty: 6 0RF Rx Instructions: leave on most painful area for up to 12 hrs hydrocodone-acetaminophen [hydrocodone-acetaminophen] 1 TABLET tablet 1 tab PO Q4H PRN PRN (Reason: Pain) 2 Days Qty: 10 0RF clindamycin HCl 150 MG capsule 300 mg PO 4X/DAY Qty: 80 0RF Primary Care Provider: Arturo Marie Referrals: Arturo Marie MD [Primary Care Provider] - Activity Restrictions/Additional Instructions: Follow-up with Dr. Hopson. Call the office for an appointment as soon as possible regarding the chest pain that you have been having. Still follow-up with your assembly line supervisor regarding the palpitations that you have been experiencing and is being currently monitored.
[2021-10-28 00:11] LABS: Reflex Troponin-HS? (from REC) Y
[2021-10-28 00:57] LABS: Troponin-I HS 19 pg/mL (3.0-54.0)
[2021-10-28 01:24] VITALS: BP 127/55; PULSE 82; RESP 18
== END 2021-10-28 01:25 | disposition home or self-care (01) ==
PROVIDERS: Emergency Provider Emergency Medicine; PCP Family Medicine; Visit Provider Emergency Medicine
DX: R07.89 Other chest pain (principal); E11.9 Type 2 diabetes mellitus without complications; R06.02 Shortness of breath; R00.2 Palpitations; I10 Essential (primary) hypertension; E78.5 Hyperlipidemia, unspecified; K21.9 Gastro-esophageal reflux disease without esophagitis; M81.0 Age-related osteoporosis without current pathological fracture; Z79.84 Long term (current) use of oral hypoglycemic drugs; Z79.899 Other long term (current) drug therapy
CPT/HCPCS: 36415; 71045; 80048; 84484; 85025; 93005; 99285; A4216

== ENCOUNTER → 2022-05-08 | Outpatient (CLI) | payer MEDICARE, SELFPAY ==
--- NOTE | 2022-05-08 14:25 | NEURO ---
NCS and/or EMG Patient Report Ordering Doctor: Arturo Marie DATE OF SERVICE: 05/08/22 Indication: Bilateral hand pain, numbness, tingling and poor dexterity for ~1 year (right greater than left). Evaluate for entrapment neuropathy. Findings: Nerve conduction studies were performed in the right and left upper extremities. The right median motor study recording the abductor pollicis brevis showed an absent response. The right ulnar motor study recording the abductor digiti minimi showed a normal amplitude, normal distal latency and normal conduction velocity. No conduction block or focal slowing was present across the elbow. The right median sensory response recording digit two showed an absent response. The right ulnar sensory response recording digit five showed a borderline amplitude, normal latency and borderline conduction velocity. The right radial sensory response recording over the extensor snuff box showed a normal amplitude, latency and conduction velocity. The left median motor study recording the abductor pollicis brevis showed a normal amplitude, prolonged distal latency and slowed conduction velocity. The left ulnar motor study recording the abductor digiti minimi showed a normal amplitude, normal distal latency and normal conduction velocity. No conduction block or focal slowing was present across the elbow. The left median sensory response recording digit two showed a markedly reduced amplitude, prolonged latency and markedly slowed conduction velocity. The left ulnar sensory response recording digit five showed a borderline amplitude, normal distal latency and borderline conduction velocity. The left radial sensory response recording over the extensor snuff box showed a normal amplitude, latency and conduction velocity. The right median-ulnar lumbrical / interosseous motor latencies showed a prolonged median latency compared to the ulnar. The left median-ulnar lumbrical / interosseous motor latencies showed a prolonged median latency compared to the ulnar. Needle EMG of the right upper extremity muscles was performed. Insertional activity was decreased in the right abductor pollicis brevis. No denervation was seen in any other muscle. All other motor unit morphology, activation and recruitment patterns were normal. Needle EMG of the left abductor pollicis brevis was performed. No denervation was seen. Motor units were large amplitude, long duration and polyphasic with reduced recruitment. Impression: This is an abnormal study. 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 The normal needle examination of the flexor carpi radialis as well as the prolonged median response on internal comparisons would implicate a lesion across the wrist. In addition, there is electrophysiologic evidence of a moderately severe median neuropathy across the left wrist. The pathophysiology is predominantly demyelinating though there is significant secondary sensory axon loss. These findings are compatible with the clinical diagnosis of carpal tunnel syndrome. The motor unit changes in the first dorsal interosseous as well as the borderline sensory velocities may be indicative of a more generalized, underlying polyneuropathy. This was not fully evaluated as it was no the indication for the current study. Horacio Shankar D.O.
== END | disposition home or self-care (01) ==
LOC: PSN 12:57
PROVIDERS: PCP Family Medicine; Visit Provider Family Medicine
DX: R20.0 Anesthesia of skin (principal); R20.2 Paresthesia of skin
CPT/HCPCS: 95885; 95886; 95913

== ENCOUNTER 2022-10-26 13:15 | Outpatient (RCR) | payer MEDICARE, SELFPAY ==
[2022-10-10 13:17] VITALS: BP 169/87; PULSE 80; RESP 24; TEMP 36.2; BMI 39.7
--- NOTE | 2022-10-10 14:27 | HP.PCM_ITS ---
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 This has been associated with bilateral swelling and edema in her lower extremities which is chronic in nature. At the time of her initial presentation, the patient has no open wounds or ulcerations. She was recently treated for cellulitis with courses of oral antibiotics, including Keflex and doxycycline. The patient is not active. She is obese. She sleeps in an upright position in a chair. She denies a history of thrombophlebitis. She indicates that she has frequent episodes of cellulitis in her lower extremities. [facility] Medical History Acute kidney injury Aortic stenosis Atrial fibrillation Chronic venous insufficiency Diabetes mellitus Diabetic neuropathy Diaphragmatic hernia Dyslipidemia Edema of left lower extremity Edema of left lower extremity due to peripheral venous insufficiency Edema of right lower extremity Edema of right lower extremity due to peripheral venous insufficiency Esophageal spasm Esophageal stricture Gastroenteritis GERD (gastroesophageal reflux disease) Hearing deficit Hiatal hernia History of basal cell cancer History of esophageal dilatation HTN (hypertension) Hyperlipidemia Hypokalemia Metabolic acidosis Obesity (BMI 35.0-39.9 without comorbidity) Osteoporosis Overactive bladder Swelling of left lower extremity Swelling of right lower extremity Thrombocytopenia Tinnitus Venous stasis dermatitis Home Medications glimepiride 4 mg tablet 4 mg PO BID DIABETES 07/05/17 [History Last Taken 04/01/18] metformin 500 mg tablet 500 mg PO UD diabetes 07/05/17 [History Last Taken 04/01/18] furosemide 80 mg tablet 80 mg PO DAILY PRN edema 02/01/18 [History Last Taken Unknown] acetaminophen 500 mg tablet (Tylenol Extra Strength) 1,000 mg PO PRN PRN Pain 04/01/18 [History Last Taken 03/31/18] hydrochlorothiazide 25 mg tablet 25 mg PO DAILY diuretic 04/01/18 [History Last Taken Unknown] ibuprofen 200 mg tablet 200 mg PO PRN PRN Pain 04/01/18 [History Last Taken 04/01/18] metoprolol succinate 25 mg tablet,extended release 24 hr (Toprol XL) 25 mg PO DAILY blood pressure 04/01/18 [History Last Taken Unknown] cholecalciferol (vitamin D3) 50 mcg (2,000 unit) capsule 4,000 unit PO DAILY 01/11/20 [History Last Taken Unknown] amlodipine 2.5 mg tablet (Norvasc) 2.5 mg PO DAILY 10/10/22 [History Last Taken Unknown] aspirin 81 mg chewable tablet (Jalen Chewable Low Dose Aspirin) 1 tab PO DAILY 10/10/22 [History Last Taken Unknown] carvedilol 3.125 mg tablet (Coreg) 3.125 mg PO BID 10/10/22 [History Last Taken Unknown] nitroglycerin 0.4 mg sublingual tablet (Nitrostat) 0.4 mg sublingual Q5M 10/10/22 [History Last Taken Unknown] sitagliptin phosphate 100 mg tablet (Januvia) 100 mg PO DAILY 10/10/22 [History Last Taken Unknown] Allergy/AdvReac Type Severity Reaction Status Date / Time acetaminophen [From Vicodin] Allergy Other Verified 10/10/22 13:58 celecoxib [From Celebrex] Allergy Unknown Verified 10/10/22 13:58 codeine Allergy Unknown Verified 10/10/22 13:58 hydrocodone [From Vicodin] Allergy Other Verified 10/10/22 13:58 morphine Allergy Other Verified 10/10/22 13:58 niacin Allergy Unknown Verified 10/10/22 13:58 Penicillins Allergy Unknown Verified 10/10/22 13:58 prednisone Allergy Unknown Verified 10/10/22 13:58 Sulfa (Sulfonamide Allergy Unknown Verified 10/10/22 13:58 Antibiotics) Family History Mother Asthma Father Heart disease Hypertension Arthritis Surgical History History of cholecystectomy History of laparoscopic cholecystectomy History of nasal surgery History of surgery on left wrist History of tonsillectomy history ORIF left wrist History repair broken nose Social History Smoking Status: Never smoker alcohol intake: never substance use type: does not use Vital Signs Vital Signs Vital Signs: 10/10/22 13:17 Temperature 97.1 F L Temperature Source Temporal Pulse Rate 80 Respiratory Rate 24 H Blood Pressure 169/87 H Blood Pressure Mean 114 Blood Pressure Source Monitor Weight Weight: 250 lb 2.49 oz Body Mass Index (BMI) 39.7 Physical Exam Const alert, oriented x3, no apparent distress and well nourished Constitutional Narrative: The patient is obese. A hearing deficit is easily discernible in conversation with the patient. General Appearance: cooperative, comfortable and well developed Orientation / Consciousness: awake, oriented to person, oriented to place and oriented to time HEENT normocephalic and head/scalp atraumatic Head and Scalp: normal to inspection, normocephalic and atraumatic External Ear: external ears normal Eyes PERRL and EOMs intact bilaterally General Eye: normal appearance of both eyes Resp normal respiratory effort, normal air movement, no retractions and no use of accessory muscles Effort and Inspection: able to speak in complete sentences Extremity no calf tenderness General Extremity: Negative for clubbing or cyanosis Skin Wound Narrative: Severe swelling and edema are noted in the patient's lower extremities bilaterally. In addition, there are stigmata of chronic venous disease, including venous stasis dermatitis and inflammatory erythema. There are no darrel open wounds or ulcerations. There is no sign of infection or cellulitis. Neuro oriented x3, CN's II-XII intact bilaterally and moves all extremities Sensorium / Orientation: awake, alert, oriented to person, oriented to place and oriented to time Psych Appearance: grossly normal and appropriate Attitude: calm Activity / Motor Behavior: appropriate eye contact Speech: normal speech Mood & Affect: euthymic mood Thought Process: normal thought process Thought Content: normal thought content Attention / Concentration: attention grossly intact Debridement Note Debridement Note No debridement was completed: No debridement was completed today (There are no open wounds or ulcerations.) Post-Debridement Measurements and Additional Note: Post-Debridement Measurements/Treatment - Nurse 1 - General Ulcer Assessment Start: 10/10/22 13:17 Freq: Status: Active Protocol: CORRINA.LOWEXT Activity Type Activity Date Activity User E-sign Co-sign Detail Recorded Client Recorded Date Recorded By Document 10/10/22 13:17 MALVIN [id number] 10/10/22 13:35 10/10/22 13:17 - Today's Visit Information Type of service Initial Visit Arrival Mode Ambulatory,Cane Transfer Assistance None Patient Identification Verified (Name & Yes ) Patient Requires Transmission-Based No Precautions Height and Weight Height 5 ft 6.5 in Weight 250 lb 2.49 oz Weight in Pounds 250.2 lbs Body Mass Index (BMI) 39.7 BMI Classification Obese BSA - Nelson 2.21 Vital Signs Temperature (97.8 F-99.1 F) 97.1 F L Temperature Source Temporal Pulse Rate (60-100) 80 Pulse Location Monitor Respiratory Rate (12-18) 24 H Blood Pressure (90/60-120/80) 169/87 H Blood Pressure Mean 114 Source Monitor Pain Scale: 0-10 Numeric Is Patient Pain Free? Yes Lower Extremity Assessment/ Foot Assessment/ Toe Nail Assessment Left -Popliteal Doppler Monophasic -Posterior Tibial Palpable Yes -Posterior Tibial Doppler Monophasic -Dorsalis Pedis Palpable Yes -Extremity Color Red, Hyperpigmented, Hemosiderin -Hair Growth on Legs No -Hair Growth on Toes No -Temperature of Extremity Warm -Capillary Refill Greater than 3 Seconds -Dependent Rubor No -Blanched when Elevated No -Lipodermatosclerosis No -Other Deformity No -Prior Foot Ulcer No -Charcot Joint No -Prior Amputation No -Thick Yes -Discolored Yes -Deformed Yes -Improper Length & Hygeine Yes Right -Posterior Tibial Palpable No -Posterior Tibial Doppler Monophasic -Dorsalis Pedis Palpable No -Dorsalis Pedis Doppler Monophasic -Extremity Color Red, Hyperpigmented, Hemosiderin -Hair Growth on Legs No -Hair Growth on Toes No -Temperature of Extremity Warm -Capillary Refill Greater than 3 Seconds -Dependent Rubor No -Blanched when Elevated No -Lipodermatosclerosis No -Other Deformity No -Prior Foot Ulcer No -Charcot Joint No -Prior Amputation No -Thick Yes -Discolored Yes -Deformed Yes -Improper Length & Hygeine Yes Neuropathy Assessment Feet - Top Side and Bottom <Entered> (a) Communication Assessment Preferred language Swedish Able to Read Yes Able to Write Yes Communication Tools None Right Hearing Abillity Hard of Hearing Left Hearing Abillity Hard of Hearing Visual Assistive Devices Glasses Teaching Assessment Preferences Verbal,Written, Demonstration Readiness To Learn Fair Willingness to Engage in Self Management Med Activies Readiness to Engage in Self Management Med Activities Anxiety Level Calm Cooperation Cooperative Perception Coherent Interest in Health Problem Asks Questions Education Importance Acknowledges Need Does Patient Smoke tobacco or other No substances Smoking Status Never smoker Is Patient Diabetic Yes Functional Assessment Recent Decline in Ability to Perform Denies Any Declines Culture/Spiritism/Agent Ticketing Gate Cultural/Spiritism Needs that may affect No Treatment Plan Would you allow our [facility] forming roll operator to No meet you for the purpose of spiritual/ emotional support? Agent Ticketing Gate to contact [facility] No (a) 1 - + WC - Nurse 1 - General Ulcer Measurement Start: 10/10/22 13:17 Freq: Status: Active Protocol: Activity Type Activity Date Activity User E-sign Co-sign Detail Recorded Client Recorded Date Recorded By Document 10/10/22 13:17 DL [id number] 10/10/22 13:35 DL 10/10/22 13:17 Wound Center Nurse 1 #1 -Combined with other wound No Right Calf (cm) 42.2 Right Ankle (cm) 23.8 Left Calf (cm) 40.2 Left Ankle (cm) 23.5 WC - Nurse 3 - General Ulcer D/C NN Start: 10/10/22 13:17 Freq: Status: Active Protocol: Activity Type Activity Date Activity User E-sign Co-sign Detail Recorded Client Recorded Date Recorded By Document 10/10/22 14:09 DL [id number] 10/10/22 14:11 DL 10/10/22 14:09 Wound Care Center Nurse 3 cristi -Multi-Layered Wrap Application Unna Boot - Bilateral ($) Treatment Response Procedure Tolerated Well Pain Scale: 0-10 Numeric Is Patient Pain Free? Yes WC - Visit Discharge Discharge Condition Stable Ambulatory Status Ambulatory Transportation Private Auto Notes: Dressing applied per Zo Santos today. Assessment/Plan Assessment/Plan (1) Venous stasis dermatitis: CODE(S): I87.2 - Venous insufficiency (chronic) (peripheral) QUALIFIERS: Laterality: bilateral Qualified Code(s): I87.2 - Venous insufficiency (chronic) (peripheral) (2) Chronic venous insufficiency: CODE(S): I87.2 - Venous insufficiency (chronic) (peripheral) (3) Swelling of left lower extremity: CODE(S): M79.89 - Other specified soft tissue disorders (4) Swelling of right lower extremity: CODE(S): M79.89 - Other specified soft tissue disorders (5) Edema of left lower extremity: CODE(S): R60.0 - Localized edema (6) Edema of right lower extremity: CODE(S): R60.0 - Localized edema (7) Diabetes mellitus: CODE(S): E11.9 - Type 2 diabetes mellitus without complications QUALIFIERS: Diabetes mellitus type: type 2 Diabetes mellitus complication status: with unspecified complications Diabetes mellitus care home insulin use: without extermination supervisor use Qualified Code(s): E11.8 - Type 2 diabetes mellitus with unspecified complications (8) Edema of left lower extremity due to peripheral venous insufficiency: CODE(S): I87.2 - Venous insufficiency (chronic) (peripheral) (9) Edema of right lower extremity due to peripheral venous insufficiency: CODE(S): I87.2 - Venous insufficiency (chronic) (peripheral) (10) GERD (gastroesophageal reflux disease): CODE(S): K21.9 - Gastro-esophageal reflux disease without esophagitis QUALIFIERS: Esophagitis presence: esophagitis presence not specified Qualified Code(s): K21.9 - Gastro-esophageal reflux disease without esophagitis (11) HTN (hypertension): CODE(S): I10 - Essential (primary) hypertension QUALIFIERS: Hypertension type: unspecified secondary hypertension Qualified Code(s): I15.9 - Secondary hypertension, unspecified; I15 - Secondary hypertension (12) Hyperlipidemia: CODE(S): E78.5 - Hyperlipidemia, unspecified (13) Hiatal hernia: CODE(S): K44.9 - Diaphragmatic hernia without obstruction or gangrene (14) Aortic stenosis: CODE(S): I35.0 - Nonrheumatic aortic (valve) stenosis (15) Diabetic neuropathy: CODE(S): E11.40 - Type 2 diabetes mellitus with diabetic neuropathy, unspecified (16) Diaphragmatic hernia: CODE(S): K44.9 - Diaphragmatic hernia without obstruction or gangrene (17) History of basal cell cancer: CODE(S): Z85.828 - Personal history of other malignant neoplasm of skin (18) Tinnitus: CODE(S): H93.19 - Tinnitus, unspecified ear (19) Hearing deficit: CODE(S): H91.90 - Unspecified hearing loss, unspecified ear (20) Esophageal stricture: CODE(S): K22.2 - Esophageal obstruction (21) Overactive bladder: CODE(S): N32.81 - Overactive bladder (22) Atrial fibrillation: CODE(S): I48.91 - Unspecified atrial fibrillation (23) Obesity (BMI 35.0-39.9 without comorbidity): CODE(S): E66.9 - Obesity, unspecified (24) History of cholecystectomy: CODE(S): Z90.49 - Acquired absence of other specified parts of digestive tract (25) History of surgery on left wrist: CODE(S): Z98.890 - Other specified postprocedural states (26) History of nasal surgery: CODE(S): Z98.890 - Other specified postprocedural states (27) History of tonsillectomy: CODE(S): Z90.89 - Acquired absence of other organs (28) History of esophageal dilatation: CODE(S): Z98.890 - Other specified postprocedural states PLAN: Plan This is a morbidly obese diabetic female who presents with stigmata of chronic venous disease. She is noted to have swelling and edema in her lower extremities bilaterally, associated with venous stasis dermatitis bilaterally in the gaiter areas. The patient has a habit of sleeping in a chair at night. She is not very active. She is morbidly obese. She she sits a great deal of each day. We have discussed the implementation of conservative treatment measures relative to her chronic venous disease. These are to include leg elevation, both at night and during daytime hours. She has been encouraged to sleep on a flat surface at night. Leg elevation is to be to heart level, or higher, is much as possible. Prolonged idle sitting has been discouraged. Activity has been encouraged, though the patient is unlikely to enhance her activity level to any significant degree. Weight loss has been recommended. Optimization of the patient's glycemic control has been recommended. Her hemoglobin A1c earlier today was 8.8. We are to implement the use of compression to the lower extremities bilaterally using Unna boots, which will be applied today, and changed twice weekly. We are to obtain a noninvasive lower extremity arterial study, to assess the arterial circulation in the patient's lower extremities. This will serve as a guide to long-term lower extremity compression therapy. Patient is to return in 1 week for reassessment. Total time: 50 minutes
[2022-10-12 13:10] VITALS: BP 141/80; PULSE 87; RESP 18; TEMP 36.1; BMI 39.7
--- NOTE | 2022-10-17 11:08 | ART_ITS ---
Reason For Study: Non-Healing Wounds Procedure A bilateral lower extremity continuous wave Doppler with analog waveform analysis,segmental pressures,and ankle brachial indexes without exercise. Left Segmental Pressures Left brachial= 143mmHg. Left posterior tibial artery = 187mmHg. Left dorsalis pedis artery = 182mmHg. Left digit = 120 mmHg. The left posterior tibial artery waveforms are triphasic. The left dorsalis pedis waveforms are triphasic. Irregular cardiac rhythm noted. Right Segmental Pressures Right brachial= 149mmHg. Right posterior tibial artery = 173mmHg. Right dorsalis pedis artery = 174mmHg. Right digit = 126 mmHg. The right posterior tibial artery waveforms are triphasic. The right dorsalis pedis waveforms are triphasic. Irregular cardiac rhythm noted. Indices The right ankle brachial index by the posterior tibial artery is 1.16. The right ankle brachial index by the dorsalis pedis is 1.17. The right digital-brachial index is 0.85. The left ankle brachial index by the posterior tibial artery is 1.26. The left ankle brachial index by the dorsalis pedis is 1.22. The left digital-brachial index is 0.81. VL/Lower Ext Art Exam w/o Exercis Interpretation Summary Triphasic Doppler waveforms are noted at ankle level bilaterally. Pulse-volume recordings appear satisfactory at all levels bilaterally. Resting ankle-brachial indices are norm al bilaterally. Digital-brachial indices are normal bilaterally. There is no evidence of significant arterial occlusive disease in the lower ext remities bilaterally. An irregular cardiac rhythm is noted. Ordering Physician: Eliezer Harding Referring Physician: ELIEZER HARDING MD Performed By: Edwin Chiang, RVT
[2022-10-17 13:31] VITALS: BP 147/79; PULSE 85; RESP 22; TEMP 36.1; BMI 39.7
--- NOTE | 2022-10-17 13:57 | HP.PCM_ITS ---
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 This had been associated with bilateral swelling and edema in her lower extremities which is chronic in nature. At the time of her initial presentation, the patient had no open wounds or ulcerations. She was recently treated for cellulitis with courses of oral antibiotics, including Keflex and doxycycline. The patient is not active. She is obese. She sleeps in an upright position in a chair. She denies a history of thrombophlebitis. She indicates that she has frequent episodes of cellulitis in her lower extremities. FOR[facility]LY [facility], LATER [facility] Medical History Acute kidney injury Aortic stenosis Atrial fibrillation Chronic venous insufficiency Diabetes mellitus Diabetic neuropathy Diaphragmatic hernia Dyslipidemia Edema of left lower extremity Edema of left lower extremity due to peripheral venous insufficiency Edema of right lower extremity Edema of right lower extremity due to peripheral venous insufficiency Esophageal spasm Esophageal stricture Gastroenteritis GERD (gastroesophageal reflux disease) Hearing deficit Hiatal hernia History of basal cell cancer History of esophageal dilatation HTN (hypertension) Hyperlipidemia Hypokalemia Metabolic acidosis Obesity (BMI 35.0-39.9 without comorbidity) Osteoporosis Overactive bladder Swelling of left lower extremity Swelling of right lower extremity Thrombocytopenia Tinnitus Venous stasis dermatitis Home Medications glimepiride 4 mg tablet 4 mg PO BID DIABETES 07/05/17 [History Last Taken 04/01/18] metformin 500 mg tablet 500 mg PO UD diabetes 07/05/17 [History Last Taken 04/01/18] furosemide 80 mg tablet 80 mg PO DAILY PRN edema 02/01/18 [History Last Taken Unknown] acetaminophen 500 mg tablet (Tylenol Extra Strength) 1,000 mg PO PRN PRN Pain 04/01/18 [History Last Taken 03/31/18] hydrochlorothiazide 25 mg tablet 25 mg PO DAILY diuretic 04/01/18 [History Last Taken Unknown] ibuprofen 200 mg tablet 200 mg PO PRN PRN Pain 04/01/18 [History Last Taken 04/01/18] metoprolol succinate 25 mg tablet,extended release 24 hr (Toprol XL) 25 mg PO DAILY blood pressure 04/01/18 [History Last Taken Unknown] cholecalciferol (vitamin D3) 50 mcg (2,000 unit) capsule 4,000 unit PO DAILY 01/11/20 [History Last Taken Unknown] amlodipine 2.5 mg tablet (Norvasc) 2.5 mg PO DAILY 10/10/22 [History Last Taken Unknown] aspirin 81 mg chewable tablet (Jalen Chewable Low Dose Aspirin) 1 tab PO DAILY 10/10/22 [History Last Taken Unknown] carvedilol 3.125 mg tablet (Coreg) 3.125 mg PO BID 10/10/22 [History Last Taken Unknown] nitroglycerin 0.4 mg sublingual tablet (Nitrostat) 0.4 mg sublingual Q5M 10/10/22 [History Last Taken Unknown] sitagliptin phosphate 100 mg tablet (Januvia) 100 mg PO DAILY 10/10/22 [History Last Taken Unknown] Allergy/AdvReac Type Severity Reaction Status Date / Time acetaminophen [From Vicodin] Allergy Other Verified 10/10/22 13:58 celecoxib [From Celebrex] Allergy Unknown Verified 10/10/22 13:58 codeine Allergy Unknown Verified 10/10/22 13:58 hydrocodone [From Vicodin] Allergy Other Verified 10/10/22 13:58 morphine Allergy Other Verified 10/10/22 13:58 niacin Allergy Unknown Verified 10/10/22 13:58 Penicillins Allergy Unknown Verified 10/10/22 13:58 prednisone Allergy Unknown Verified 10/10/22 13:58 Sulfa (Sulfonamide Allergy Unknown Verified 10/10/22 13:58 Antibiotics) Family History Mother Asthma Father Heart disease Hypertension Arthritis Surgical History History of cholecystectomy History of laparoscopic cholecystectomy History of nasal surgery History of surgery on left wrist History of tonsillectomy history ORIF left wrist History repair broken nose Social History Smoking Status: Never smoker alcohol intake: never substance use type: does not use Vital Signs Vital Signs Vital Signs: 10/17/22 13:31 Temperature 96.9 F L Temperature Source Temporal Pulse Rate 85 Respiratory Rate 22 H Blood Pressure 147/79 H Blood Pressure Mean 101 Blood Pressure Source Monitor Blood Pressure Position Sitting Blood Pressure Location Left Arm Oxygen Delivery Method Room Air Weight Weight: 250 lb 2.49 oz Body Mass Index (BMI) 39.7 Physical Exam Const alert, oriented x3, no apparent distress and well nourished Constitutional Narrative: The patient is obese. A hearing deficit is easily discernible in conversation with the patient. General Appearance: cooperative, comfortable and well developed Orientation / Consciousness: awake, oriented to person, oriented to place and oriented to time HEENT normocephalic and head/scalp atraumatic Head and Scalp: normal to inspection, normocephalic and atraumatic External Ear: external ears normal Eyes PERRL and EOMs intact bilaterally General Eye: normal appearance of both eyes Resp normal respiratory effort, normal air movement, no retractions and no use of accessory muscles Effort and Inspection: able to speak in complete sentences Extremity no calf tenderness General Extremity: Negative for clubbing or cyanosis Skin Wound Narrative: Severe swelling and edema are noted in the patient's lower extremities bilaterally. In addition, there are stigmata of chronic venous disease, including venous stasis dermatitis and inflammatory erythema. There are no darrel open wounds or ulcerations. There is no sign of infection or cellulitis. There is slight improvement since evaluated 1 week ago. Neuro oriented x3, CN's II-XII intact bilaterally and moves all extremities Sensorium / Orientation: awake, alert, oriented to person, oriented to place and oriented to time Psych Appearance: grossly normal and appropriate Attitude: calm Activity / Motor Behavior: appropriate eye contact Speech: normal speech Mood & Affect: euthymic mood Thought Process: normal thought process Thought Content: normal thought content Attention / Concentration: attention grossly intact Debridement Note Debridement Note No debridement was completed: No debridement was completed today (There are no open wounds or ulcerations.) Post-Debridement Measurements and Additional Note: Post-Debridement Measurements/Treatment CORRINA - Nurse 1 - General Ulcer Assessment Start: 10/10/22 13:17 Freq: Status: Active Protocol: MATEO Activity Type Activity Date Activity User E-sign Co-sign Detail Recorded Client Recorded Date Recorded By Document 10/10/22 13:17 DL [id number] 10/10/22 13:35 DL Document 10/12/22 13:10 KW [id number] 10/12/22 13:12 KW Document 10/17/22 13:31 MW [id number] 10/17/22 13:33 MW 10/10/22 10/12/22 10/17/22 13:17 13:10 13:31 WC - Today's Visit Information Type of service Initial Visit Nurse-only Follow-up Visit Visit (Physician/CHILDCARE AIDE ) Arrival Mode Ambulatory,Cane Ambulatory Ambulatory Transfer Assistance None None Accompanied by self Patient Identification Verified (Name & Yes Yes Yes ) Patient Requires Transmission-Based No No Precautions Safety Precautions Fall Prevention Finger Stick Blood Sugar(mg/dl) (if 150 indicated): Blood Sugar Stated by Patient Height and Weight Height 5 ft 6.5 in Weight 250 lb 2.49 oz Weight in Pounds 250.2 lbs Body Mass Index (BMI) 39.7 39.7 39.7 BMI Classification Obese Obese Obese BSA - Nelson 2.21 Vital Signs Temperature (97.8 F-99.1 F) 97.1 F L 96.9 F L 96.9 F L Temperature Source Temporal Temporal Temporal Pulse Rate (60-100) 80 87 85 Pulse Location Monitor Monitor Monitor Respiratory Rate (12-18) 24 H 18 22 H Respiratory rate source Observation Observation Oxygen Delivery Method Room Air Room Air Blood Pressure (90/60-120/80) 169/87 H 141/80 H 147/79 H Blood Pressure Mean 114 100 101 Source Monitor Monitor Monitor Position Semi-Fowlers Sitting Blood Pressure Location Left Arm Left Arm History Since Last Visit- (Skip if this is Patient's initial visit) Have you changed medications since your No No last visit? Any new allergies or adverse reactions No No Had a fall/change in ADL's that may No No increase risk of falls Signs or symptoms of abuse and/or No No neglect since last visit Have you been in the hospital since your No No last visit? Has dressing in place as prescribed Yes Yes Has compression in place as prescribed Yes Yes Has offloadiing in place as prescribed N/A Experienced any changes in pain level or No management Left Footwear Regular Shoe Regular Shoe Right Footwear Regular Shoe Regular Shoe Pain Scale: 0-10 Numeric Is Patient Pain Free? Yes Yes Yes Lower Extremity Assessment/ Foot Assessment/ Toe Nail Assessment Left -Popliteal Doppler Monophasic -Posterior Tibial Palpable Yes -Posterior Tibial Doppler Monophasic -Dorsalis Pedis Palpable Yes -Extremity Color Red, Hyperpigmented, Hemosiderin -Hair Growth on Legs No -Hair Growth on Toes No -Temperature of Extremity Warm -Capillary Refill Greater than 3 Seconds -Dependent Rubor No -Blanched when Elevated No -Lipodermatosclerosis No -Other Deformity No -Prior Foot Ulcer No -Charcot Joint No -Prior Amputation No -Thick Yes -Discolored Yes -Deformed Yes -Improper Length & Hygeine Yes Right -Posterior Tibial Palpable No -Posterior Tibial Doppler Monophasic -Dorsalis Pedis Palpable No -Dorsalis Pedis Doppler Monophasic -Extremity Color Red, Hyperpigmented, Hemosiderin -Hair Growth on Legs No -Hair Growth on Toes No -Temperature of Extremity Warm -Capillary Refill Greater than 3 Seconds -Dependent Rubor No -Blanched when Elevated No -Lipodermatosclerosis No -Other Deformity No -Prior Foot Ulcer No -Charcot Joint No -Prior Amputation No -Thick Yes -Discolored Yes -Deformed Yes -Improper Length & Hygeine Yes Neuropathy Assessment Feet - Top Side and Bottom <Entered> (a) Communication Assessment Preferred language Yi Able to Read Yes Able to Write Yes Communication Tools None Right Hearing Abillity Hard of Hearing Left Hearing Abillity Hard of Hearing Visual Assistive Devices Glasses Teaching Assessment Preferences Verbal,Written, Demonstration Readiness To Learn Fair Willingness to Engage in Self Management Med Activies Readiness to Engage in Self Management Med Activities Anxiety Level Calm Cooperation Cooperative Perception Coherent Interest in Health Problem Asks Questions Education Importance Acknowledges Need Does Patient Smoke tobacco or other No substances Smoking Status Never smoker Is Patient Diabetic Yes Functional Assessment Recent Decline in Ability to Perform Denies Any Declines Culture/Gnosticism/Public Relations Officer Cultural/Gnosticism Needs that may affect No Treatment Plan Would you allow our hospital sales and marketing manager to No meet you for the purpose of spiritual/ emotional support? Public Relations Officer to contact place of hindu No (a) 1 - + WC - Nurse 1 - General Ulcer Measurement Start: 10/10/22 13:17 Freq: Status: Active Protocol: Activity Type Activity Date Activity User E-sign Co-sign Detail Recorded Client Recorded Date Recorded By Document 10/10/22 13:17 DL [id number] 10/10/22 13:35 DL Document 10/12/22 13:10 KW [id number] 10/12/22 13:12 KW Document 10/17/22 13:31 MW [id number] 10/17/22 13:33 MW 10/10/22 10/12/22 10/17/22 13:17 13:10 13:31 Wound Center Nurse 1 #1 -Combined with other wound No No -Current Size (cm) - Length 0.1 -Current Size (cm) - Width 0.1 -Current Size (cm) - Depth 0.1 -Total Square Cm 0.01 -Photo Taken No -Epithelialization Large 67-100% -Tunneling No -Undermining/Tunneling No -Circular Undermining No -Exudate Amt None Present -Granulation Amt None Present (0 %) -Slough/Fibrin No -Necrosis Amt None Present (0 %) -Texture (Marisela-wound Skin Appearance) Assessed, Localized Edema -Moisture (Marisela-wound Skin Appearance) Assessed -Color (Marisela-wound Skin Appearance) Assessed,Rubor -Temperature (Marisela-wound Skin No Abnormality Appearance) (Pt Warm) -Ulcer Cleansing Soap and Water -Foul Odor after Cleansing No Lower Limb Edema Present Yes Right Calf (cm) 42.2 38.9 38.2 Right Ankle (cm) 23.8 23.0 22.6 Left Calf (cm) 40.2 38.7 38.0 Left Ankle (cm) 23.5 25.5 23.0 WC - Nurse 3 - General Ulcer D/C NN Start: 10/10/22 13:17 Freq: Status: Active Protocol: Activity Type Activity Date Activity User E-sign Co-sign Detail Recorded Client Recorded Date Recorded By Document 10/10/22 14:09 DL [id number] 10/10/22 14:11 DL Document 10/12/22 13:12 KW [id number] 10/12/22 13:13 KW 10/10/22 10/12/22 14:09 13:12 Wound Care Center Nurse 3 cristi -Multi-Layered Wrap Application Unna Boot - Unna Boot - Bilateral ($) Bilateral ($) Treatment Response Procedure Tolerated Well Pain Scale: 0-10 Numeric Is Patient Pain Free? Yes Yes WC - Visit Discharge Discharge Condition Stable Stable Ambulatory Status Ambulatory Ambulatory Transportation Private Auto Private Auto Medication Reconcilliation completed & No provided to patient/care provider Clinical Summary of Care Provided Yes Notes: Dressing applied per Zo Santos today. Assessment/Plan Assessment/Plan (1) Venous stasis dermatitis: CODE(S): I87.2 - Venous insufficiency (chronic) (peripheral) QUALIFIERS: Laterality: bilateral Qualified Code(s): I87.2 - Venous insufficiency (chronic) (peripheral) (2) Chronic venous insufficiency: CODE(S): I87.2 - Venous insufficiency (chronic) (peripheral) (3) Swelling of left lower extremity: CODE(S): M79.89 - Other specified soft tissue disorders (4) Swelling of right lower extremity: CODE(S): M79.89 - Other specified soft tissue disorders (5) Edema of left lower extremity: CODE(S): R60.0 - Localized edema (6) Edema of right lower extremity: CODE(S): R60.0 - Localized edema (7) Diabetes mellitus: CODE(S): E11.9 - Type 2 diabetes mellitus without complications QUALIFIERS: Diabetes mellitus type: type 2 Diabetes mellitus complication status: with unspecified complications Diabetes mellitus manager terminal insulin use: without manager terminal use Qualified Code(s): E11.8 - Type 2 diabetes mellitus with unspecified complications (8) Edema of left lower extremity due to peripheral venous insufficiency: CODE(S): I87.2 - Venous insufficiency (chronic) (peripheral) (9) Edema of right lower extremity due to peripheral venous insufficiency: CODE(S): I87.2 - Venous insufficiency (chronic) (peripheral) (10) GERD (gastroesophageal reflux disease): CODE(S): K21.9 - Gastro-esophageal reflux disease without esophagitis QUALIFIERS: Esophagitis presence: esophagitis presence not specified Qualified Code(s): K21.9 - Gastro-esophageal reflux disease without esophagitis (11) HTN (hypertension): CODE(S): I10 - Essential (primary) hypertension QUALIFIERS: Hypertension type: unspecified secondary hypertension Qualified Code(s): I15.9 - Secondary hypertension, unspecified; I15 - Secondary hypertension (12) Hyperlipidemia: CODE(S): E78.5 - Hyperlipidemia, unspecified (13) Hiatal hernia: CODE(S): K44.9 - Diaphragmatic hernia without obstruction or gangrene (14) Aortic stenosis: CODE(S): I35.0 - Nonrheumatic aortic (valve) stenosis (15) Diabetic neuropathy: CODE(S): E11.40 - Type 2 diabetes mellitus with diabetic neuropathy, unspecified (16) Diaphragmatic hernia: CODE(S): K44.9 - Diaphragmatic hernia without obstruction or gangrene (17) History of basal cell cancer: CODE(S): Z85.828 - Personal history of other malignant neoplasm of skin (18) Tinnitus: CODE(S): H93.19 - Tinnitus, unspecified ear (19) Hearing deficit: CODE(S): H91.90 - Unspecified hearing loss, unspecified ear (20) Esophageal stricture: CODE(S): K22.2 - Esophageal obstruction (21) Overactive bladder: CODE(S): N32.81 - Overactive bladder (22) Atrial fibrillation: CODE(S): I48.91 - Unspecified atrial fibrillation (23) Obesity (BMI 35.0-39.9 without comorbidity): CODE(S): E66.9 - Obesity, unspecified (24) History of cholecystectomy: CODE(S): Z90.49 - Acquired absence of other specified parts of digestive tract (25) History of surgery on left wrist: CODE(S): Z98.890 - Other specified postprocedural states (26) History of nasal surgery: CODE(S): Z98.890 - Other specified postprocedural states (27) History of tonsillectomy: CODE(S): Z90.89 - Acquired absence of other organs (28) History of esophageal dilatation: CODE(S): Z98.890 - Other specified postprocedural states PLAN: Plan This is a morbidly obese diabetic female who presents with stigmata of chronic venous disease. She is noted to have swelling and edema in her lower extremities bilaterally, associated with venous stasis dermatitis bilaterally in the gaiter areas. The patient has a habit of sleeping in a chair at night. She is not very active. She is morbidly obese. She she sits a great deal of each day. We have discussed the implementation of conservative treatment measures relative to her chronic venous disease. These are to include leg elevation, both at night and during daytime hours. She has been encouraged to sleep on a flat surface at night. Leg elevation is to be to heart level, or higher, is much as possible. Prolonged idle sitting has been discouraged. Activity has been encouraged, though the patient is unlikely to enhance her activity level to any significant degree. Weight loss has been recommended. Optimization of the patient's glycemic control has been recommended. Her hemoglobin A1c earlier today was 8.8. We are to continue the use of compression to the lower extremities bilaterally using Unna boots, which will be applied today, and changed twice weekly. A noninvasive lower extremity arterial study has been performed earlier today, the results of which revealed no significant arterial occlusive disease. The patient is to return in 2 weeks for reassessment. Total time: 24 minutes
[2022-10-20 12:23] VITALS: BP 101/71; PULSE 82; RESP 20; TEMP 36.4; BMI 39.7
[2022-10-24 13:09] VITALS: BP 182/76; PULSE 81; RESP 20; TEMP 36.4; BMI 39.7
[2022-10-26 12:58] VITALS: BP 185/80; PULSE 94; RESP 20; TEMP 36.4; BMI 39.7
== END 2022-10-30 23:59 | disposition home or self-care (01) ==
LOC: WC 13:15
PROVIDERS: PCP Family Medicine; Referring Provider Physician Assistant; Visit Provider Surgery
DX: I87.2 Venous insufficiency (chronic) (peripheral) (principal); E11.40 Type 2 diabetes mellitus with diabetic neuropathy, unspecified; E11.59 Type 2 diabetes mellitus with other circulatory complications; I48.91 Unspecified atrial fibrillation; E66.01 Morbid (severe) obesity due to excess calories; M79.89 Other specified soft tissue disorders; E78.5 Hyperlipidemia, unspecified; K21.9 Gastro-esophageal reflux disease without esophagitis; H91.90 Unspecified hearing loss, unspecified ear; N32.81 Overactive bladder; K44.9 Diaphragmatic hernia without obstruction or gangrene; R60.0 Localized edema; K22.2 Esophageal obstruction; I15.9 Secondary hypertension, unspecified; I35.0 Nonrheumatic aortic (valve) stenosis; Z68.39 Body mass index [BMI] 39.0-39.9, adult; Z79.82 Long term (current) use of aspirin; Z79.84 Long term (current) use of oral hypoglycemic drugs; Z79.899 Other long term (current) drug therapy
CPT/HCPCS: 29580; 93923; 99213; G0463

== ENCOUNTER 2022-11-07 13:15 | Outpatient (RCR) | payer MEDICARE, SELFPAY ==
[2022-10-31 00:27] VITALS: BP 185/80; PULSE 94; RESP 20; TEMP 36.4; BMI 39.7
[2022-10-31 13:12] VITALS: BP 135/71; PULSE 97; RESP 22; TEMP 36.1; BMI 39.7
--- NOTE | 2022-10-31 13:32 | PCM.WC.HP ---
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 This had been associated with bilateral swelling and edema in her lower extremities which is chronic in nature. At the time of her initial presentation, the patient had no open wounds or ulcerations. She was recently treated for cellulitis with courses of oral antibiotics, including Keflex and doxycycline. The patient is not active. She is obese. She sleeps in an upright position in a chair. She denies a history of thrombophlebitis. She indicates that she has frequent episodes of cellulitis in her lower extremities. [facility] Medical History Acute kidney injury Aortic stenosis Atrial fibrillation Chronic venous insufficiency Diabetes mellitus Diabetic neuropathy Diaphragmatic hernia Dyslipidemia Edema of left lower extremity Edema of left lower extremity due to peripheral venous insufficiency Edema of right lower extremity Edema of right lower extremity due to peripheral venous insufficiency Esophageal spasm Esophageal stricture Gastroenteritis GERD (gastroesophageal reflux disease) Hearing deficit Hiatal hernia History of basal cell cancer History of esophageal dilatation HTN (hypertension) Hyperlipidemia Hypokalemia Metabolic acidosis Obesity (BMI 35.0-39.9 without comorbidity) Osteoporosis Overactive bladder Swelling of left lower extremity Swelling of right lower extremity Thrombocytopenia Tinnitus Venous stasis dermatitis Home Medications glimepiride 4 mg tablet 4 mg PO BID DIABETES 07/05/17 [History Last Taken 04/01/18] metformin 500 mg tablet 500 mg PO UD diabetes 07/05/17 [History Last Taken 04/01/18] furosemide 80 mg tablet 80 mg PO DAILY PRN edema 02/01/18 [History Last Taken Unknown] acetaminophen 500 mg tablet (Tylenol Extra Strength) 1,000 mg PO PRN PRN Pain 04/01/18 [History Last Taken 03/31/18] hydrochlorothiazide 25 mg tablet 25 mg PO DAILY diuretic 04/01/18 [History Last Taken Unknown] ibuprofen 200 mg tablet 200 mg PO PRN PRN Pain 04/01/18 [History Last Taken 04/01/18] metoprolol succinate 25 mg tablet,extended release 24 hr (Toprol XL) 25 mg PO DAILY blood pressure 04/01/18 [History Last Taken Unknown] cholecalciferol (vitamin D3) 50 mcg (2,000 unit) capsule 4,000 unit PO DAILY 01/11/20 [History Last Taken Unknown] amlodipine 2.5 mg tablet (Norvasc) 2.5 mg PO DAILY 10/10/22 [History Last Taken Unknown] aspirin 81 mg chewable tablet (Jalen Chewable Low Dose Aspirin) 1 tab PO DAILY 10/10/22 [History Last Taken Unknown] carvedilol 3.125 mg tablet (Coreg) 3.125 mg PO BID 10/10/22 [History Last Taken Unknown] nitroglycerin 0.4 mg sublingual tablet (Nitrostat) 0.4 mg sublingual Q5M 10/10/22 [History Last Taken Unknown] sitagliptin phosphate 100 mg tablet (Januvia) 100 mg PO DAILY 10/10/22 [History Last Taken Unknown] Allergy/AdvReac Type Severity Reaction Status Date / Time acetaminophen [From Vicodin] Allergy Other Verified 10/10/22 13:58 celecoxib [From Celebrex] Allergy Unknown Verified 10/10/22 13:58 codeine Allergy Unknown Verified 10/10/22 13:58 hydrocodone [From Vicodin] Allergy Other Verified 10/10/22 13:58 morphine Allergy Other Verified 10/10/22 13:58 niacin Allergy Unknown Verified 10/10/22 13:58 Penicillins Allergy Unknown Verified 10/10/22 13:58 prednisone Allergy Unknown Verified 10/10/22 13:58 Sulfa (Sulfonamide Allergy Unknown Verified 10/10/22 13:58 Antibiotics) Family History Mother Asthma Father Heart disease Hypertension Arthritis Surgical History History of cholecystectomy History of laparoscopic cholecystectomy History of nasal surgery History of surgery on left wrist History of tonsillectomy history ORIF left wrist History repair broken nose Social History Smoking Status: Never smoker alcohol intake: never substance use type: does not use Vital Signs Vital Signs Vital Signs: 10/31/22 13:12 10/31/22 00:27 Temperature 97 F L 97.5 F L Temperature Source Temporal Pulse Rate 97 94 Respiratory Rate 22 H 20 H Blood Pressure 135/71 H 185/80 H Blood Pressure Mean 92 115 Blood Pressure Source Monitor Blood Pressure Location Left Arm Weight Weight: 250 lb 2.49 oz Body Mass Index (BMI) 39.7 Physical Exam Const alert, oriented x3, no apparent distress and well nourished Constitutional Narrative: The patient is obese. A hearing deficit is easily discernible in conversation with the patient. General Appearance: cooperative, comfortable and well developed Orientation / Consciousness: awake, oriented to person, oriented to place and oriented to time HEENT normocephalic and head/scalp atraumatic Head and Scalp: normal to inspection, normocephalic and atraumatic External Ear: external ears normal Eyes PERRL and EOMs intact bilaterally General Eye: normal appearance of both eyes Resp normal respiratory effort, normal air movement, no retractions and no use of accessory muscles Effort and Inspection: able to speak in complete sentences Extremity no calf tenderness General Extremity: Negative for clubbing or cyanosis Skin Wound Narrative: Minimal swelling and edema are noted in the patient's lower extremities bilaterally. There has been significant improvement. Mild venous stasis dermatitis is noted in the gaiter areas bilaterally, though with significant improvement. There is mild erythema, appearing to be inflammatory in nature, rather than cellulitic. There are no darrel open wounds or ulcerations. Neuro oriented x3, CN's II-XII intact bilaterally and moves all extremities Sensorium / Orientation: awake, alert, oriented to person, oriented to place and oriented to time Psych Appearance: grossly normal and appropriate Attitude: calm Activity / Motor Behavior: appropriate eye contact Speech: normal speech Mood & Affect: euthymic mood Thought Process: normal thought process Thought Content: normal thought content Attention / Concentration: attention grossly intact Debridement Note Debridement Note No debridement was completed: No debridement was completed today (There are no open wounds or ulcerations.) Post-Debridement Measurements and Additional Note: Post-Debridement Measurements/Treatment - Nurse 1 - General Ulcer Assessment Start: 10/31/22 13:11 Freq: Status: Active Protocol: MATEO Activity Type Activity Date Activity User E-sign Co-sign Detail Recorded Client Recorded Date Recorded By Document 10/31/22 13:12 DL [id number] 10/31/22 13:16 DL 10/31/22 13:12 - Today's Visit Information Type of service Follow-up Visit (Physician/[employer]IST ) Arrival Mode Ambulatory,Cane Transfer Assistance None Patient Identification Verified (Name & Yes ) Patient Requires Transmission-Based No Precautions Height and Weight Body Mass Index (BMI) 39.7 BMI Classification Obese Vital Signs Temperature (97.8 F-99.1 F) 97 F L Temperature Source Temporal Pulse Rate (60-100) 97 Pulse Location Monitor Respiratory Rate (12-18) 22 H Respiratory rate source Observation Blood Pressure (90/60-120/80) 135/71 H Blood Pressure Mean 92 Source Monitor History Since Last Visit- (Skip if this is Patient's initial visit) Have you changed medications since your No last visit? Any new allergies or adverse reactions No Had a fall/change in ADL's that may No increase risk of falls Signs or symptoms of abuse and/or No neglect since last visit Have you been in the hospital since your No last visit? Has dressing in place as prescribed Yes Has compression in place as prescribed Yes Has offloadiing in place as prescribed N/A Experienced any changes in pain level or No management Pain Scale: 0-10 Numeric Is Patient Pain Free? Yes WC - Nurse 1 - General Ulcer Measurement Start: 10/31/22 13:11 Freq: Status: Active Protocol: Activity Type Activity Date Activity User E-sign Co-sign Detail Recorded Client Recorded Date Recorded By Document 10/31/22 13:12 DL [id number] 10/31/22 13:16 DL 10/31/22 13:12 Wound Center Nurse 1 #1 -Wound Comment(s) edema only Right Calf (cm) 40 Right Ankle (cm) 22.8 Left Calf (cm) 43 Left Ankle (cm) 23.7 Assessment/Plan Assessment/Plan (1) Venous stasis dermatitis: CODE(S): I87.2 - Venous insufficiency (chronic) (peripheral) QUALIFIERS: Laterality: bilateral Qualified Code(s): I87.2 - Venous insufficiency (chronic) (peripheral) (2) Chronic venous insufficiency: CODE(S): I87.2 - Venous insufficiency (chronic) (peripheral) (3) Swelling of left lower extremity: CODE(S): M79.89 - Other specified soft tissue disorders (4) Swelling of right lower extremity: CODE(S): M79.89 - Other specified soft tissue disorders (5) Edema of left lower extremity: CODE(S): R60.0 - Localized edema (6) Edema of right lower extremity: CODE(S): R60.0 - Localized edema (7) Diabetes mellitus: CODE(S): E11.9 - Type 2 diabetes mellitus without complications QUALIFIERS: Diabetes mellitus type: type 2 Diabetes mellitus complication status: with unspecified complications Diabetes mellitus salvage determiner insulin use: without salvage determiner use Qualified Code(s): E11.8 - Type 2 diabetes mellitus with unspecified complications (8) Edema of left lower extremity due to peripheral venous insufficiency: CODE(S): I87.2 - Venous insufficiency (chronic) (peripheral) (9) Edema of right lower extremity due to peripheral venous insufficiency: CODE(S): I87.2 - Venous insufficiency (chronic) (peripheral) (10) GERD (gastroesophageal reflux disease): CODE(S): K21.9 - Gastro-esophageal reflux disease without esophagitis QUALIFIERS: Esophagitis presence: esophagitis presence not specified Qualified Code(s): K21.9 - Gastro-esophageal reflux disease without esophagitis (11) HTN (hypertension): CODE(S): I10 - Essential (primary) hypertension QUALIFIERS: Hypertension type: unspecified secondary hypertension Qualified Code(s): I15.9 - Secondary hypertension, unspecified; I15 - Secondary hypertension (12) Hyperlipidemia: CODE(S): E78.5 - Hyperlipidemia, unspecified (13) Hiatal hernia: CODE(S): K44.9 - Diaphragmatic hernia without obstruction or gangrene (14) Aortic stenosis: CODE(S): I35.0 - Nonrheumatic aortic (valve) stenosis (15) Diabetic neuropathy: CODE(S): E11.40 - Type 2 diabetes mellitus with diabetic neuropathy, unspecified (16) Diaphragmatic hernia: CODE(S): K44.9 - Diaphragmatic hernia without obstruction or gangrene (17) History of basal cell cancer: CODE(S): Z85.828 - Personal history of other malignant neoplasm of skin (18) Tinnitus: CODE(S): H93.19 - Tinnitus, unspecified ear (19) Hearing deficit: CODE(S): H91.90 - Unspecified hearing loss, unspecified ear (20) Esophageal stricture: CODE(S): K22.2 - Esophageal obstruction (21) Overactive bladder: CODE(S): N32.81 - Overactive bladder (22) Atrial fibrillation: CODE(S): I48.91 - Unspecified atrial fibrillation (23) Obesity (BMI 35.0-39.9 without comorbidity): CODE(S): E66.9 - Obesity, unspecified (24) History of cholecystectomy: CODE(S): Z90.49 - Acquired absence of other specified parts of digestive tract (25) History of surgery on left wrist: CODE(S): Z98.890 - Other specified postprocedural states (26) History of nasal surgery: CODE(S): Z98.890 - Other specified postprocedural states (27) History of tonsillectomy: CODE(S): Z90.89 - Acquired absence of other organs (28) History of esophageal dilatation: CODE(S): Z98.890 - Other specified postprocedural states PLAN: Plan This is a morbidly obese diabetic female who presented with stigmata of chronic venous disease. She is noted to have swelling and edema in her lower extremities bilaterally, associated with venous stasis dermatitis bilaterally in the gaiter areas. The patient has a habit of sleeping in a chair at night. She is not very active. She is morbidly obese. She sits a great deal of each day. We have discussed the implementation of conservative treatment measures relative to her chronic venous disease. These are to include leg elevation, both at night and during daytime hours. She has been encouraged to sleep on a flat surface at night. Leg elevation is to be to heart level, or higher, is much as possible. Prolonged idle sitting has been discouraged. Activity has been encouraged, though the patient is unlikely to enhance her activity level to any significant degree. Weight loss has been recommended. Optimization of the patient's glycemic control has been recommended. Her hemoglobin A1c earlier today was 8.8. We are to continue the use of compression to the lower extremities bilaterally using 3M 2 layer compression wraps. These will be changed twice weekly. A noninvasive lower extremity arterial study has been performed recently, the results of which revealed no significant arterial occlusive disease. The patient is to return in 1 week for reassessment. It is anticipated that the patient will be discharged soon, likely following her next visit, anticipating that she will be prescribed graduated compression stockings of 20 to 30 mmHg compression, to be worn on a daily basis. The patient has stated My legs have not looked this good for a long, long time. Total time: 25 minutes
[2022-11-02 13:44] VITALS: BP 155/85; PULSE 95; RESP 16; TEMP 35.9; BMI 39.7
[2022-11-07 13:27] VITALS: BP 150/81; PULSE 104; RESP 24; TEMP 35.6; BMI 39.7
--- NOTE | 2022-11-07 13:45 | HP.PCM_ITS ---
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 This had been associated with bilateral swelling and edema in her lower extremities which is chronic in nature. At the time of her initial presentation, the patient had no open wounds or ulcerations. She was recently treated for cellulitis with courses of oral antibiotics, including Keflex and doxycycline. The patient is not active. She is obese. She sleeps in an upright position in a chair. She denies a history of thrombophlebitis. She indicates that she has frequent episodes of cellulitis in her lower extremities. [facility] Medical History Acute kidney injury Aortic stenosis Atrial fibrillation Chronic venous insufficiency Diabetes mellitus Diabetic neuropathy Diaphragmatic hernia Dyslipidemia Edema of left lower extremity Edema of left lower extremity due to peripheral venous insufficiency Edema of right lower extremity Edema of right lower extremity due to peripheral venous insufficiency Esophageal spasm Esophageal stricture Gastroenteritis GERD (gastroesophageal reflux disease) Hearing deficit Hiatal hernia History of basal cell cancer History of esophageal dilatation HTN (hypertension) Hyperlipidemia Hypokalemia Metabolic acidosis Obesity (BMI 35.0-39.9 without comorbidity) Osteoporosis Overactive bladder Swelling of left lower extremity Swelling of right lower extremity Thrombocytopenia Tinnitus Venous stasis dermatitis Home Medications glimepiride 4 mg tablet 4 mg PO BID DIABETES 07/05/17 [History Last Taken 04/01/18] metformin 500 mg tablet 500 mg PO UD diabetes 07/05/17 [History Last Taken 04/01/18] furosemide 80 mg tablet 80 mg PO DAILY PRN edema 02/01/18 [History Last Taken Unknown] acetaminophen 500 mg tablet (Tylenol Extra Strength) 1,000 mg PO PRN PRN Pain 04/01/18 [History Last Taken 03/31/18] hydrochlorothiazide 25 mg tablet 25 mg PO DAILY diuretic 04/01/18 [History Last Taken Unknown] ibuprofen 200 mg tablet 200 mg PO PRN PRN Pain 04/01/18 [History Last Taken 04/01/18] metoprolol succinate 25 mg tablet,extended release 24 hr (Toprol XL) 25 mg PO DAILY blood pressure 04/01/18 [History Last Taken Unknown] cholecalciferol (vitamin D3) 50 mcg (2,000 unit) capsule 4,000 unit PO DAILY 01/11/20 [History Last Taken Unknown] amlodipine 2.5 mg tablet (Norvasc) 2.5 mg PO DAILY 10/10/22 [History Last Taken Unknown] aspirin 81 mg chewable tablet (Jalen Chewable Low Dose Aspirin) 1 tab PO DAILY 10/10/22 [History Last Taken Unknown] carvedilol 3.125 mg tablet (Coreg) 3.125 mg PO BID 10/10/22 [History Last Taken Unknown] nitroglycerin 0.4 mg sublingual tablet (Nitrostat) 0.4 mg sublingual Q5M 10/10/22 [History Last Taken Unknown] sitagliptin phosphate 100 mg tablet (Januvia) 100 mg PO DAILY 10/10/22 [History Last Taken Unknown] Allergy/AdvReac Type Severity Reaction Status Date / Time acetaminophen [From Vicodin] Allergy Other Verified 10/10/22 13:58 celecoxib [From Celebrex] Allergy Unknown Verified 10/10/22 13:58 codeine Allergy Unknown Verified 10/10/22 13:58 hydrocodone [From Vicodin] Allergy Other Verified 10/10/22 13:58 morphine Allergy Other Verified 10/10/22 13:58 niacin Allergy Unknown Verified 10/10/22 13:58 Penicillins Allergy Unknown Verified 10/10/22 13:58 prednisone Allergy Unknown Verified 10/10/22 13:58 Sulfa (Sulfonamide Allergy Unknown Verified 10/10/22 13:58 Antibiotics) Family History Mother Asthma Father Heart disease Hypertension Arthritis Surgical History History of cholecystectomy History of laparoscopic cholecystectomy History of nasal surgery History of surgery on left wrist History of tonsillectomy history ORIF left wrist History repair broken nose Social History Smoking Status: Never smoker alcohol intake: never substance use type: does not use Vital Signs Vital Signs Vital Signs: 11/07/22 13:27 Temperature 96.1 F L Temperature Source Temporal Pulse Rate 104 H Respiratory Rate 24 H Blood Pressure 150/81 H Blood Pressure Mean 104 Blood Pressure Source Monitor Weight Weight: 250 lb 2.49 oz Body Mass Index (BMI) 39.7 Physical Exam Const alert, oriented x3, no apparent distress and well nourished Constitutional Narrative: The patient is obese. A hearing deficit is easily discernible in conversation with the patient. General Appearance: cooperative, comfortable and well developed Orientation / Consciousness: awake, oriented to person, oriented to place and oriented to time HEENT normocephalic and head/scalp atraumatic Head and Scalp: normal to inspection, normocephalic and atraumatic External Ear: external ears normal Eyes PERRL and EOMs intact bilaterally General Eye: normal appearance of both eyes Resp normal respiratory effort, normal air movement, no retractions and no use of accessory muscles Effort and Inspection: able to speak in complete sentences Extremity no calf tenderness General Extremity: Negative for clubbing or cyanosis Skin Wound Narrative: Minimal swelling and edema are noted in the patient's lower extremities bilaterally. There has been significant improvement. Slight inflammatory erythema is noted in the gaiter areas bilaterally. There is no evidence of infection or cellulitis. There are no darrel open wounds or ulcerations. Neuro oriented x3, CN's II-XII intact bilaterally and moves all extremities Sensorium / Orientation: awake, alert, oriented to person, oriented to place and oriented to time Psych Appearance: grossly normal and appropriate Attitude: calm Activity / Motor Behavior: appropriate eye contact Speech: normal speech Mood & Affect: euthymic mood Thought Process: normal thought process Thought Content: normal thought content Attention / Concentration: attention grossly intact Debridement Note Debridement Note Post-Debridement Measurements and Additional Note: Post-Debridement Measurements/Treatment - Nurse 1 - General Ulcer Assessment Start: 10/31/22 13:11 Freq: Status: Active Protocol: MATEO Activity Type Activity Date Activity User E-sign Co-sign Detail Recorded Client Recorded Date Recorded By Document 10/31/22 13:12 DL [id number] 10/31/22 13:16 DL Document 11/02/22 13:44 [facility] [id number] 11/02/22 13:48 BM Document 11/07/22 13:27 DL [id number] 11/07/22 13:34 DL 10/31/22 11/02/22 11/07/22 13:12 13:44 13:27 - Today's Visit Information Type of service Follow-up Visit Nurse-only Follow-up Visit (Physician/NATUROPATHIC PHYSICIAN Visit (Physician/NATUROPATHIC PHYSICIAN ) ) Arrival Mode Ambulatory,Cane Ambulatory,Cane Transfer Assistance None None Stretcher Patient Identification Verified (Name & Yes Yes Yes ) Patient Requires Transmission-Based No No No Precautions Height and Weight Body Mass Index (BMI) 39.7 39.7 39.7 BMI Classification Obese Obese Obese Vital Signs Temperature (97.8 F-99.1 F) 97 F L 96.7 F L 96.1 F L Temperature Source Temporal Temporal Temporal Pulse Rate (60-100) 97 95 104 H Pulse Location Monitor Monitor Monitor Respiratory Rate (12-18) 22 H 16 24 H Respiratory rate source Observation Observation Observation Oxygen Delivery Method Room Air Blood Pressure (90/60-120/80) 135/71 H 155/85 H 150/81 H Blood Pressure Mean 92 108 104 Source Monitor Monitor Monitor Position Sitting Blood Pressure Location Left Arm History Since Last Visit- (Skip if this is Patient's initial visit) Have you changed medications since your No No No last visit? Any new allergies or adverse reactions No No No Had a fall/change in ADL's that may No No No increase risk of falls Signs or symptoms of abuse and/or No No No neglect since last visit Have you been in the hospital since your No No No last visit? Has dressing in place as prescribed Yes Yes Has compression in place as prescribed Yes Yes Yes Has offloadiing in place as prescribed N/A N/A N/A Experienced any changes in pain level or No No No management Left Footwear Regular Shoe Right Footwear Regular Shoe Pain Scale: 0-10 Numeric Is Patient Pain Free? Yes Yes Yes WC - Nurse 1 - General Ulcer Measurement Start: 10/31/22 13:11 Freq: Status: Active Protocol: Activity Type Activity Date Activity User E-sign Co-sign Detail Recorded Client Recorded Date Recorded By Document 10/31/22 13:12 DL [id number] 10/31/22 13:16 DL Document 11/02/22 13:44 [facility] [id number] 11/02/22 13:48 BMF Document 11/07/22 13:27 DL [id number] 11/07/22 13:34 DL 10/31/22 11/02/22 11/07/22 13:12 13:44 13:27 Wound Center Nurse 1 #1 -Wound Comment(s) edema only Lower Limb Edema Present Yes Right Calf (cm) 40 40.1 41 Right Ankle (cm) 22.8 22.1 22 Left Calf (cm) 43 36.7 37 Left Ankle (cm) 23.7 21.9 23.1 WC - Nurse 3 - General Ulcer D/C NN Start: 10/31/22 13:11 Freq: Status: Active Protocol: Activity Type Activity Date Activity User E-sign Co-sign Detail Recorded Client Recorded Date Recorded By Document 10/31/22 14:00 DL [id number] 10/31/22 14:01 DL Document 11/02/22 13:44 [facility] [id number] 11/02/22 13:48 BM 10/31/22 11/02/22 14:00 13:44 Wound Care Center Nurse 3 cristi -Multi-Layered Wrap Application Multi-Layer Multi-Layer Comp - Bilat ($ Comp - Bilat ($ ) ) Treatment Response Procedure Procedure Tolerated Well Tolerated Well Vital Signs Temperature (97.8 F-99.1 F) 96.7 F L Temperature Source Temporal Pulse Rate (60-100) 95 Pulse Location Monitor Respiratory Rate (12-18) 16 Respiratory rate source Observation Oxygen Delivery Method Room Air Blood Pressure (90/60-120/80) 155/85 H Blood Pressure Mean 108 Source Monitor Position Sitting Blood Pressure Location Left Arm Pain Scale: 0-10 Numeric Is Patient Pain Free? Yes Yes WC - Visit Discharge Discharge Condition Stable Stable Ambulatory Status Ambulatory Ambulatory,Cane Transportation Private Auto Private Auto Assessment/Plan Assessment/Plan (1) Venous stasis dermatitis: CODE(S): I87.2 - Venous insufficiency (chronic) (peripheral) QUALIFIERS: Laterality: bilateral Qualified Code(s): I87.2 - Venous insufficiency (chronic) (peripheral) (2) Chronic venous insufficiency: CODE(S): I87.2 - Venous insufficiency (chronic) (peripheral) (3) Swelling of left lower extremity: CODE(S): M79.89 - Other specified soft tissue disorders (4) Swelling of right lower extremity: CODE(S): M79.89 - Other specified soft tissue disorders (5) Edema of left lower extremity: CODE(S): R60.0 - Localized edema (6) Edema of right lower extremity: CODE(S): R60.0 - Localized edema (7) Diabetes mellitus: CODE(S): E11.9 - Type 2 diabetes mellitus without complications QUALIFIERS: Diabetes mellitus type: type 2 Diabetes mellitus complication status: with unspecified complications Diabetes mellitus skilled nursing insulin use: without skilled nursing use Qualified Code(s): E11.8 - Type 2 diabetes mellitus with unspecified complications (8) Edema of left lower extremity due to peripheral venous insufficiency: CODE(S): I87.2 - Venous insufficiency (chronic) (peripheral) (9) Edema of right lower extremity due to peripheral venous insufficiency: CODE(S): I87.2 - Venous insufficiency (chronic) (peripheral) (10) GERD (gastroesophageal reflux disease): CODE(S): K21.9 - Gastro-esophageal reflux disease without esophagitis QUALIFIERS: Esophagitis presence: esophagitis presence not specified Qualified Code(s): K21.9 - Gastro-esophageal reflux disease without esophagitis (11) HTN (hypertension): CODE(S): I10 - Essential (primary) hypertension QUALIFIERS: Hypertension type: unspecified secondary hypertension Qualified Code(s): I15.9 - Secondary hypertension, unspecified; I15 - Secondary hypertension (12) Hyperlipidemia: CODE(S): E78.5 - Hyperlipidemia, unspecified (13) Hiatal hernia: CODE(S): K44.9 - Diaphragmatic hernia without obstruction or gangrene (14) Aortic stenosis: CODE(S): I35.0 - Nonrheumatic aortic (valve) stenosis (15) Diabetic neuropathy: CODE(S): E11.40 - Type 2 diabetes mellitus with diabetic neuropathy, unspecified (16) Diaphragmatic hernia: CODE(S): K44.9 - Diaphragmatic hernia without obstruction or gangrene (17) History of basal cell cancer: CODE(S): Z85.828 - Personal history of other malignant neoplasm of skin (18) Tinnitus: CODE(S): H93.19 - Tinnitus, unspecified ear (19) Hearing deficit: CODE(S): H91.90 - Unspecified hearing loss, unspecified ear (20) Esophageal stricture: CODE(S): K22.2 - Esophageal obstruction (21) Overactive bladder: CODE(S): N32.81 - Overactive bladder (22) Atrial fibrillation: CODE(S): I48.91 - Unspecified atrial fibrillation (23) Obesity (BMI 35.0-39.9 without comorbidity): CODE(S): E66.9 - Obesity, unspecified (24) History of cholecystectomy: CODE(S): Z90.49 - Acquired absence of other specified parts of digestive tract (25) History of surgery on left wrist: CODE(S): Z98.890 - Other specified postprocedural states (26) History of nasal surgery: CODE(S): Z98.890 - Other specified postprocedural states (27) History of tonsillectomy: CODE(S): Z90.89 - Acquired absence of other organs (28) History of esophageal dilatation: CODE(S): Z98.890 - Other specified postprocedural states PLAN: Plan This is a morbidly obese diabetic female who presented with stigmata of chronic venous disease. She was noted to have swelling and edema in her lower extremities bilaterally, associated with venous stasis dermatitis bilaterally in the gaiter areas. The patient has a habit of sleeping in a chair at night. She is not very active. She is morbidly obese. She sits a great deal of each day. We have discussed the implementation of conservative treatment measures relative to her chronic venous disease. These are to include leg elevation, both at night and during daytime hours. She has been encouraged to sleep on a flat surface at night. Leg elevation is to be to heart level, or higher, is much as possible. Prolonged idle sitting has been discouraged. Activity has been encouraged, though the patient is unlikely to enhance her activity level to any significant degree. Weight loss has been recommended. Optimization of the patient's glycemic control has been recommended. We are to continue the use of compression to the lower extremities bilaterally. The patient has been provided with Tubigrip's of 20 to 30 mmHg compression. These are to be donned each morning, and doffed at night before bedtime. She is to continue sleeping on a flat mattress at night. The patient is to be discharged, as the swelling and edema is minimal, and there are no wounds or ulcerations. Patient has been provided a prescription for graduated compression stockings of 20 to 30 mmHg. Once obtained, they are to be worn on a daily basis. The patient will follow-up henceforth on an as-needed basis. Total time: 24 minutes
== END 2022-11-07 14:15 | disposition home or self-care (01) ==
LOC: WC 13:15
PROVIDERS: PCP Family Medicine; Referring Provider Physician Assistant; Visit Provider Surgery
DX: I87.2 Venous insufficiency (chronic) (peripheral) (principal); E11.40 Type 2 diabetes mellitus with diabetic neuropathy, unspecified; I48.91 Unspecified atrial fibrillation; E66.01 Morbid (severe) obesity due to excess calories; R60.0 Localized edema; M79.89 Other specified soft tissue disorders; H91.90 Unspecified hearing loss, unspecified ear; K22.2 Esophageal obstruction; K44.9 Diaphragmatic hernia without obstruction or gangrene; I35.0 Nonrheumatic aortic (valve) stenosis; I15.9 Secondary hypertension, unspecified; K21.9 Gastro-esophageal reflux disease without esophagitis; E78.5 Hyperlipidemia, unspecified; H93.19 Tinnitus, unspecified ear; N32.81 Overactive bladder; Z68.39 Body mass index [BMI] 39.0-39.9, adult; Z79.84 Long term (current) use of oral hypoglycemic drugs; Z79.82 Long term (current) use of aspirin; Z79.899 Other long term (current) drug therapy; Z86.72 Personal history of thrombophlebitis; Z85.828 Personal history of other malignant neoplasm of skin
CPT/HCPCS: 29581; 99213; G0463

== ENCOUNTER 2022-11-14 23:08 | Emergency (ER) | payer MEDICARE, SELFPAY ==
[2022-11-14 23:09] VITALS: BP 183/91; PULSE 74; RESP 15; TEMP 36; O2SAT 95
[2022-11-14 23:27] VITALS: BMI 40.4
--- NOTE | 2022-11-14 23:29 | RAD_ITS ---
EXAM: XR RIGHT ELBOW COMPLETE, 3 OR MORE VIEWS CLINICAL INDICATION: pain TECHNIQUE: Frontal, lateral and oblique views of the right elbow. COMPARISON: No relevant prior studies available. FINDINGS: BONES/JOINTS: Slight lobulation of the cortex of the medial and lateral epicondyles, but no acute fracture is identified. No subluxation. Normal alignment. Preservation of the joint space. No destructive or sclerotic lesions. SOFT TISSUES: No displacement of the anterior or posterior fat pads of elbow. No soft tissue swelling or gas. No radiopaque foreign body. RAD/Elbow min 3 Views IMPRESSION: No acute fracture or dislocation. Electronically Signed: Gary Ha MD at 0:34 EDT ,
--- NOTE | 2022-11-14 23:29 | RAD_ITS ---
EXAM: XR RIGHT KNEE, 3 VIEWS CLINICAL INDICATION: pain TECHNIQUE: Three views of the right knee. COMPARISON: No relevant prior studies available. FINDINGS: BONES/JOINTS: No acute fracture or dislocation. Severe degenerative narrowing of the medial compartment with subchondral sclerosis, subchondral cyst formation and marginal osteophytes. Chondrocalcinosis involving the lateral meniscus. Mild degenerative spurring about the lateral compartment. Large osteophytes about the patellofemoral compartment. Ossified enthesophytes arising upon the superior and inferior poles of the patella indicating patellar degenerative change. SOFT TISSUES: Minimal vascular calcification posterior to the knee. No knee effusion. Soft tissue swelling about the knee versus large body habitus. RAD/Knee 3 Views IMPRESSION: Degenerative changes of the knee. No acute fracture or dislocation. Electronically Signed: Gary Ha MD at 0:37 EDT ,
--- NOTE | 2022-11-14 23:29 | RAD_ITS ---
EXAM: XR RIGHT SHOULDER COMPLETE, 2 OR MORE VIEWS CLINICAL INDICATION: pain TECHNIQUE: Two or more views of the right shoulder. COMPARISON: No relevant prior studies available. FINDINGS: BONES/JOINTS: No acute fracture. No dislocation or AC joint widening. Degenerative spurring noted about the inferior aspect of the AC joint. Preservation of the joint space. No sclerotic or destructive changes observed. SOFT TISSUES: Unremarkable. No soft tissue swelling or gas. No radiopaque foreign body. OTHER: The visualized right upper ribs are intact. The visualized right lung is clear. RAD/Shoulder min 2 Views IMPRESSION: No acute fracture, dislocation or AC joint widening. Electronically Signed: Gary Ha MD at 0:39 EDT ,
[2022-11-14] MEDS: Ketorolac 15 MG/ML Vial IM (23:33)
--- NOTE | 2022-11-14 23:42 | EX.ED.DYSGE1 ---
HPI History of Present Illness Chief Complaint: Fall Informant: patient Narrative Narrative: Patient is an 82-year-old female with past medical history of hypertension dyslipidemia and diabetes. 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 She states she was walking out the back door down the back steps when her cane slipped on the wet concrete causing her to fall on her right side. She denies striking her head or any loss of consciousness. She denies any history of bleeding disorder or blood thinner use. She states she was only on the ground for a few minutes and was able to get back up with the help of her granddaughter. However she noticed pain in her right arm/shoulder region that was worse with touch and motion and concern for fracture she comes in for evaluation [facility] Medical History Acute kidney injury Aortic stenosis Atrial fibrillation Chronic venous insufficiency Diabetes mellitus Diabetic neuropathy Diaphragmatic hernia Dyslipidemia Edema of left lower extremity Edema of left lower extremity due to peripheral venous insufficiency Edema of right lower extremity Edema of right lower extremity due to peripheral venous insufficiency Esophageal spasm Esophageal stricture Gastroenteritis GERD (gastroesophageal reflux disease) Hearing deficit Hiatal hernia History of basal cell cancer History of esophageal dilatation HTN (hypertension) Hyperlipidemia Hypokalemia Metabolic acidosis Obesity (BMI 35.0-39.9 without comorbidity) Osteoporosis Overactive bladder Swelling of left lower extremity Swelling of right lower extremity Thrombocytopenia Tinnitus Venous stasis dermatitis Home Medications glimepiride 4 mg tablet 4 mg PO BID DIABETES 07/05/17 [History Last Taken 04/01/18] metformin 500 mg tablet 500 mg PO UD diabetes 07/05/17 [History Last Taken 04/01/18] furosemide 80 mg tablet 80 mg PO DAILY PRN edema 02/01/18 [History Last Taken Unknown] acetaminophen 500 mg tablet (Tylenol Extra Strength) 1,000 mg PO PRN PRN Pain 04/01/18 [History Last Taken 03/31/18] hydrochlorothiazide 25 mg tablet 25 mg PO DAILY diuretic 04/01/18 [History Last Taken Unknown] ibuprofen 200 mg tablet 200 mg PO PRN PRN Pain 04/01/18 [History Last Taken 04/01/18] metoprolol succinate 25 mg tablet,extended release 24 hr (Toprol XL) 25 mg PO DAILY blood pressure 04/01/18 [History Last Taken Unknown] cholecalciferol (vitamin D3) 50 mcg (2,000 unit) capsule 4,000 unit PO DAILY 01/11/20 [History Last Taken Unknown] amlodipine 2.5 mg tablet (Norvasc) 2.5 mg PO DAILY 10/10/22 [History Last Taken Unknown] aspirin 81 mg chewable tablet (Jalen Chewable Low Dose Aspirin) 1 tab PO DAILY 10/10/22 [History Last Taken Unknown] carvedilol 3.125 mg tablet (Coreg) 3.125 mg PO BID 10/10/22 [History Last Taken Unknown] nitroglycerin 0.4 mg sublingual tablet (Nitrostat) 0.4 mg sublingual Q5M 10/10/22 [History Last Taken Unknown] sitagliptin phosphate 100 mg tablet (Januvia) 100 mg PO DAILY 10/10/22 [History Last Taken Unknown] Allergy/AdvReac Type Severity Reaction Status Date / Time acetaminophen [From Vicodin] Allergy Other Verified 11/14/22 23:15 celecoxib [From Celebrex] Allergy Unknown Verified 11/14/22 23:15 codeine Allergy Unknown Verified 11/14/22 23:15 hydrocodone [From Vicodin] Allergy Other Verified 11/14/22 23:15 morphine Allergy Other Verified 11/14/22 23:15 niacin Allergy Unknown Verified 11/14/22 23:15 Penicillins Allergy Unknown Verified 11/14/22 23:15 prednisone Allergy Unknown Verified 11/14/22 23:15 Sulfa (Sulfonamide Allergy Unknown Verified 11/14/22 23:15 Antibiotics) Family History Mother Asthma Father Heart disease Hypertension Arthritis Surgical History History of cholecystectomy History of laparoscopic cholecystectomy History of nasal surgery History of surgery on left wrist History of tonsillectomy history ORIF left wrist History repair broken nose Social History Smoking Status: Never smoker alcohol intake: never substance use type: does not use ROS ROS ED Constitutional Constitutional ED: Denies chills or fever(s) Eyes Eyes: Denies change in vision ENT ENT ED: Denies sore throat Cardiovascular Cardiovascular: Denies chest pain Respiratory/Chest Respiratory/Chest: Denies cough or dyspnea Gastrointestinal Gastrointestinal: Denies abdominal pain, diarrhea, nausea or vomiting Genitourinary Genitourinary ED: Denies dysuria Musculoskeletal Musculoskeletal: Reports arthralgias and other Details: Positive right shoulder and right elbow pain as well as right knee pain ; Denies back pain or neck pain Integumentary Reports Abrasions Neurologic Neurologic: Denies headache(s) or paresthesias Hematologic/Lymphatic Hematologic/Lymphatic: Denies easy bleeding or easy bruising EXAM Physical Exam Const Vital Signs: 11/14/22 23:09 11/14/22 23:24 Temperature 96.8 F L Temperature Source Temporal Pulse Rate 74 Respiratory Rate 15 Respiratory Effort Normal Non-Labored Respiratory Depth Normal Respiratory Pattern Normal Blood Pressure 183/91 H Blood Pressure Mean 121 Pulse Ox 95 Oxygen Delivery Method Room Air Room Air Positive well nourished, well developed and obese General Appearance ED: well developed Nutritional Appearance: obese HEENT HEENT Narrative: Normocephalic atraumatic No signs of depressed or basilar skull fracture Eyes PERRL and EOMs intact bilaterally Neck supple Neck Narrative: No bony deformity or step-off of the cervical spine no midline pain with palpation Chest Wall palpation of chest normal Chest Narrative: No bony deformity or crepitance Resp normal respiratory effort and clear to auscultation bilaterally Cardio regular rate and regular rhythm GI normal to inspection, nondistended, normoactive bowel sounds, non-tender, non-distended and no masses GI Narrative: No voluntary guarding or rigidity no pulsatile mass or fluid wave Auscultation: normoactive bowel sounds Palpation: soft Back/Spine Back/Spine Narrative: No bony deformity or step-off of the thoracic or lumbar spine no midline pain on palpation Extremity Extremity Narrative: Pelvis is stable there is no shortening or external rotation of either lower extremity Patient has a superficial abrasion to the anterior of the right knee with small amount of soft tissue swelling. No bony deformity or joint effusion noted. Patellar tendon is intact and knee ligaments are stable Right upper extremity is neurovascular intact. No obvious bony deformity or joint effusion or sulcus sign noted. Active and passive range of motion is decreased secondary to pain. There is pain with palpation over top the proximal mid humerus. Patient also reports pain in the elbow but there is no soft tissue swelling and full flexion extension at the joint. Remainder of the exam is normal Neuro oriented x3 and CN's II-XII intact bilaterally Sensorium / Orientation: alert Psych mental status grossly normal Skin Skin Narrative: Superficial abrasion over top the right knee as documented above MDM MDM MDM Narrative Medical decision making narrative: Patient presented to the ER after a mechanical fall and therefore there is no need for cardiac or syncope work-up. She did not strike her head or have loss of consciousness nor does she take blood thinners or have a history of bleeding disorders so concern for subarachnoid versus subdural or epidural hematoma is low and I feel no need for head CT. She states she was only on the ground for a few minutes and therefore concern for rhabdomyolysis is also low and I feel no need for blood work. With concern for fracture versus dislocation or subluxation imaging studies were obtained. All imaging studies were negative. Secondary to this patient is safe for discharge and can treat her contusions symptomatically History & Record Review Discussion w/independent historian: Patient Radiography Diagnostic Testing: Clinical Impression(s) from Imaging Studies Elbow X-Ray 11/14/22 23:29 IMPRESSION: No acute fracture or dislocation. Electronically Signed: Gary Ha MD at 0:34 EDT , Knee X-Ray 11/14/22 23:29 IMPRESSION: Degenerative changes of the knee. No acute fracture or dislocation. Electronically Signed: Gary Ha MD at 0:37 EDT , Shoulder X-Ray 11/14/22 23:29 IMPRESSION: No acute fracture, dislocation or AC joint widening. Electronically Signed: Gary Ha MD at 0:39 EDT , X-rays of the right knee right shoulder and right elbow as interpreted by the emergency medicine physician reveals no acute fracture or dislocation but just age-related degenerative changes Discharge Plan Triage Chief Complaint: Fall ED Provider: Danny Bhardwaj Dx/Rx/DC Orders Clinical Impression: Contusion of multiple sites, Accidental fall, Abrasion of knee, right Instructions: Bruises (Contusions), ED Abrasion Prescriptions: No Action metformin 500 mg tablet 500 mg PO UD Patient Comments: diabetes Rx Instructions: 2 TABS AT BREAKFAST; 1 TAB AT LUNCH; AND 2 TABS AT DINNER. glimepiride 4 mg tablet 4 mg PO BID Patient Comments: blood sugar furosemide 80 MG tablet 80 mg PO DAILY PRN (Reason: edema) acetaminophen [Tylenol Extra Strength] 500 MG tablet 1,000 mg PO PRN PRN (Reason: Pain) ibuprofen 200 MG tablet 200 mg PO PRN PRN (Reason: Pain) metoprolol succinate [Toprol XL] 25 MG tablet extended release 24 hr 25 mg PO DAILY hydrochlorothiazide 25 MG tablet 25 mg PO DAILY Patient Comments: blood pressure/diuretic cholecalciferol (vitamin D3) 2,000 UNIT capsule 4,000 unit PO DAILY aspirin [Jalen Chewable Aspirin] 81 mg tablet,chewable 1 tab PO DAILY nitroglycerin [Nitrostat] 0.4 mg tablet, sublingual 0.4 mg sublingual Q5M Rx Instructions: do not exceed 3 doses per episode amlodipine [Norvasc] 2.5 mg tablet 2.5 mg PO DAILY carvedilol [Coreg] 3.125 mg tablet 3.125 mg PO BID Rx Instructions: must administer with a meal/food Januvia 100 mg tablet 100 mg PO DAILY Primary Care Provider: Arturo Marie Referrals: Arturo Marie MD [Primary Care Provider] - Activity Restrictions/Additional Instructions: Your x-ray showed no signs of fracture or dislocation and therefore take Tylenol and/or Motrin for pain control and stay active you may also use [id number] medications such as IcyHot or lidocaine patches to help with pain and return to the ER should you have any further concerns Disposition Disposition: Home, Self Care
== END 2022-11-15 01:15 | disposition home or self-care (01) ==
PROVIDERS: Emergency Provider Emergency Medicine; PCP Family Medicine; Visit Provider Emergency Medicine
DX: S80.211A Abrasion, right knee, initial encounter (principal); E11.40 Type 2 diabetes mellitus with diabetic neuropathy, unspecified; M25.521 Pain in right elbow; M25.511 Pain in right shoulder; I10 Essential (primary) hypertension; E78.5 Hyperlipidemia, unspecified; W10.9XXA Fall (on) (from) unspecified stairs and steps, initial encounter; Y93.01 Activity, walking, marching and hiking; Y92.019 Unspecified place in single-family (private) house as the place of occurrence of the external cause; E66.9 Obesity, unspecified; Z79.84 Long term (current) use of oral hypoglycemic drugs; Z79.82 Long term (current) use of aspirin; Z79.899 Other long term (current) drug therapy
CPT/HCPCS: 73030; 73080; 73562; 96372; 99282

== ENCOUNTER 2022-12-06 23:29 | Emergency (ER) | payer MEDICARE, SELFPAY ==
[2022-12-06 23:30] VITALS: BP 179/99; PULSE 89; RESP 20; TEMP 36.4; O2SAT 92; BMI 40.1
--- NOTE | 2022-12-07 00:45 | CT_ITS ---
STUDY: CT BRAIN WITHOUT CONTRAST REASON FOR EXAM: Female, 82 years old. Sudden onset headache RADIATION DOSAGE (If Supplied By Facility): CTDIvol = ( 44.99 ) mGy, DLP = ( 866.41 ) mGycm TECHNIQUE: Transaxial CT imaging of the brain was performed without administration of intravenous contrast material. Individualized dose optimization techniques were used for this CT. COMPARISON: 01/11/2020 FINDINGS: Normal soft tissue structures. Normal calvarium. There is mild cerebral atrophy with widening of the extra-axial spaces and ventricular dilatation. There is mild to moderate bilateral periventricular and subcortical white matter hypoattenuation which is symmetric in distribution. Normal basal ganglia and thalami. Normal brainstem. Normal cerebellum. There is no intracranial hemorrhage. There are no findings of an acute ischemic infarction. There is mild mucoperiosteal thickening of the paranasal sinuses.. CT/Brain/Head without Contrast IMPRESSION: 1. No evidence of an acute intracranial abnormality. 2. Mild to moderate bilateral periventricular and subcortical white matter chronic small vessel disease with age appropriate cerebral atrophy. 3. Chronic paranasal sinus disease Electronically Signed: Fabian James MD at 1:38 EDT ,
--- NOTE | 2022-12-07 00:46 | EX.ED.DYSGE1 ---
HPI History of Present Illness Chief Complaint: General Illness Detail of Chief Complaint: Patient presents with sudden headache and tachycardia Informant: patient Narrative Narrative: SectionPatient presents to the emergency department via EMS from home. Patient states that she was just started on doxycycline yesterday for leg infection. Patient states half an hour after taking her doxycycline she started with a headache in the back part of her head and in her heart started racing and she just did not feel like herself. Patient thought she may be having allergic reaction to the medication and called EMS. She denies difficulty breathing. She denies chest pain currently. Headache is much improved and rates it a 4 out of 10 currently. Patient is not anticoagulated. [facility] Medical History Acute kidney injury Aortic stenosis Atrial fibrillation Chronic venous insufficiency Diabetes mellitus Diabetic neuropathy Diaphragmatic hernia Dyslipidemia Edema of left lower extremity Edema of left lower extremity due to peripheral venous insufficiency Edema of right lower extremity Edema of right lower extremity due to peripheral venous insufficiency Esophageal spasm Esophageal stricture Gastroenteritis GERD (gastroesophageal reflux disease) Hearing deficit Hiatal hernia History of basal cell cancer History of esophageal dilatation HTN (hypertension) Hyperlipidemia Hypokalemia Metabolic acidosis Obesity (BMI 35.0-39.9 without comorbidity) Osteoporosis Overactive bladder Swelling of left lower extremity Swelling of right lower extremity Thrombocytopenia Tinnitus Venous stasis dermatitis Home Medications glimepiride 4 mg tablet 4 mg PO BID DIABETES 07/05/17 [History Last Taken 04/01/18] metformin 500 mg tablet 500 mg PO UD diabetes 07/05/17 [History Last Taken 04/01/18] furosemide 80 mg tablet 80 mg PO DAILY PRN edema 02/01/18 [History Last Taken Unknown] acetaminophen 500 mg tablet (Tylenol Extra Strength) 1,000 mg PO PRN PRN Pain 04/01/18 [History Last Taken 03/31/18] hydrochlorothiazide 25 mg tablet 25 mg PO DAILY diuretic 04/01/18 [History Last Taken Unknown] ibuprofen 200 mg tablet 200 mg PO PRN PRN Pain 04/01/18 [History Last Taken 04/01/18] metoprolol succinate 25 mg tablet,extended release 24 hr (Toprol XL) 25 mg PO DAILY blood pressure 04/01/18 [History Last Taken Unknown] cholecalciferol (vitamin D3) 50 mcg (2,000 unit) capsule 4,000 unit PO DAILY 01/11/20 [History Last Taken Unknown] amlodipine 2.5 mg tablet (Norvasc) 2.5 mg PO DAILY 10/10/22 [History Last Taken Unknown] aspirin 81 mg chewable tablet (Jalen Chewable Low Dose Aspirin) 1 tab PO DAILY 10/10/22 [History Last Taken Unknown] carvedilol 3.125 mg tablet (Coreg) 3.125 mg PO BID 10/10/22 [History Last Taken Unknown] nitroglycerin 0.4 mg sublingual tablet (Nitrostat) 0.4 mg sublingual Q5M 10/10/22 [History Last Taken Unknown] sitagliptin phosphate 100 mg tablet (Januvia) 100 mg PO DAILY 10/10/22 [History Last Taken Unknown] cephalexin 500 mg capsule 500 mg PO Q6 #40 CAPSULES 12/07/22 [Rx Last Taken Unknown] Allergy/AdvReac Type Severity Reaction Status Date / Time acetaminophen [From Vicodin] Allergy Other Verified 12/06/22 23:34 celecoxib [From Celebrex] Allergy Unknown Verified 12/06/22 23:34 codeine Allergy Unknown Verified 12/06/22 23:34 hydrocodone [From Vicodin] Allergy Other Verified 12/06/22 23:34 morphine Allergy Other Verified 12/06/22 23:34 niacin Allergy Unknown Verified 12/06/22 23:34 Penicillins Allergy Unknown Verified 12/06/22 23:34 prednisone Allergy Unknown Verified 12/06/22 23:34 Sulfa (Sulfonamide Allergy Unknown Verified 12/06/22 23:34 Antibiotics) Family History Mother Asthma Father Heart disease Hypertension Arthritis Surgical History History of cholecystectomy History of laparoscopic cholecystectomy History of nasal surgery History of surgery on left wrist History of tonsillectomy history ORIF left wrist History repair broken nose Social History Smoking Status: Never smoker alcohol intake: never substance use type: does not use ROS ROS ED Review of Systems ROS Unobtainable: other Constitutional Constitutional ED: Reports lethargy; Denies chills, fever(s), sweats or weight loss Eyes Eyes: Denies blurry vision, change in vision or diplopia ENT ENT ED: Denies rhinorrhea or sore throat Cardiovascular Cardiovascular: Reports racing heartbeat; Denies chest pain or orthopnea Respiratory/Chest Respiratory/Chest: Denies cough, dyspnea, dyspnea on exertion, orthopnea or sputum Gastrointestinal Gastrointestinal: Denies abdominal pain, diarrhea, nausea or vomiting Genitourinary Genitourinary ED: Denies dysuria, hematuria or urinary frequency Musculoskeletal Musculoskeletal: Denies arthralgias, back pain, myalgias or neck pain Integumentary Denies abscess, Abrasions or rash Neurologic Neurologic: Reports headache(s); Denies weakness Psychiatric Psychiatric: Denies anxiety, depression or suicidal thoughts Endocrine Endocrinology: Denies polydipsia, polyphagia or polyuria Hematologic/Lymphatic Hematologic/Lymphatic: Denies easy bleeding, easy bruising or lymphadenopathy Allergic/Immunologic Allergic/Immunologic ED: Denies mouth swelling, tongue swelling or urticaria EXAM Physical Exam Const Vital Signs: 12/06/22 23:30 12/07/22 01:11 12/07/22 01:29 Temperature 97.6 F L Temperature Source Oral Pulse Rate 89 93 Respiratory Rate 20 H 15 Respiratory Effort Normal Non-Labored Blood Pressure 179/99 H 160/73 H Blood Pressure Mean 125 102 Pulse Ox 92 Oxygen Delivery Method Room Air 12/07/22 02:31 Temperature Temperature Source Pulse Rate 87 Respiratory Rate 18 Respiratory Effort Blood Pressure 169/89 H Blood Pressure Mean Pulse Ox 98 Oxygen Delivery Method Positive well nourished and well developed General Appearance ED: well developed and NAD HEENT Reports TM's clear and moist mucous membranes normocephalic and atraumatic; Negative for trauma or tenderness Tympanic Membrane ED: Yes TM's clear Eyes PERRL and EOMs intact bilaterally General Eye ED: Negative for pale conjunctiva or scleral icterus Neck no lymphadenopathy, supple and no JVD General: Negative for tenderness Chest Wall inspection of chest normal and palpation of chest normal Chest: Negative for tenderness Resp normal respiratory effort and clear to auscultation bilaterally Effort and Inspection: Negative for respiratory distress or pain with movement Auscultation: Negative for rhonchi, wheezes or diminished lung sounds Cardio regular rate, regular rhythm, S1 normal heart sound, S2 normal heart sound and no murmurs Peripheral Pulses: pulses 2+ throughout GI normal to inspection, nondistended, normoactive bowel sounds, soft to palpation, non-tender, non-distended and no masses Back/Spine no CVA tenderness and no thoracic nor lumbar tenderness Extremity normal to inspection General Extremety ED: Negative for edema General Extremity: Negative for edema Neuro oriented x3, CN's II-XII intact bilaterally, no sensory deficits noted and gait normal Sensorium / Orientation: awake, alert, oriented to person, oriented to place and oriented to time Motor Exam: strength 5/5 throughout and strength abnormal Psych mental status grossly normal Skin no rashes or lesions noted and no wounds MDM MDM MDM Narrative Medical decision making narrative: Patient presents with multiple complaints after taking her doxycycline for the first time. She complained of a headache and racing heart. Patient thought maybe she was having allergic reaction. She was feeling somewhat improved on arrival to the emergency department. IV line was established. CBC with differential obtained showed a normal white count of 6.4 with hemoglobin of 14.2 and platelet count of 201. Chemistries unremarkable. Lactate was normal at 1.0 and troponin was normal at 19. It is unclear if patient's symptoms related to doxycycline but we will switch her over to Bactrim. Advised to follow-up with primary care physician within next 3 to 5 days. Lab Data Attestation: I reviewed the patient's lab results. Labs: Laboratory Results - last 24 hr 12/06/22 12/07/22 12/07/22 23:30 00:56 01:58 WBC 6.4 RBC 4.45 Hgb 14.2 Hct 43.9 MCV 98.7 MCH 31.9 MCHC 32.3 RDW Std Deviation 50.1 H RDW Coeff of Eduardo 13.8 Plt Count 201 MPV 12.1 H Immature Gran % (Auto) 0.200 Neut % (Auto) 57.4 Lymph % (Auto) 29.4 Dane % (Auto) 8.3 Eos % (Auto) 3.8 Baso % (Auto) 0.9 Absolute Neuts (auto) 3.7 Absolute Lymphs (auto) 1.87 Nucleated RBC % 0 Sodium 137 Potassium 3.8 Chloride 102 Carbon Dioxide 29.0 Anion Gap 6 BUN 25 H Creatinine 0.87 Estim Creat Clear Calc 48.28 Est GFR (MDRD) Af Amer 80 Est GFR (MDRD) Non-Af 66 BUN/Creatinine Ratio 28.6 H Glucose 295 H Lactic Acid 1.0 Calcium 9.8 Troponin I High Sens 19 22 Radiography Diagnostic Testing: Clinical Impression(s) from Imaging Studies Brain CT 12/07/22 00:45 IMPRESSION: 1. No evidence of an acute intracranial abnormality. 2. Mild to moderate bilateral periventricular and subcortical white matter chronic small vessel disease with age appropriate cerebral atrophy. 3. Chronic paranasal sinus disease Electronically Signed: Fabian James MD at 1:38 EDT , EKG Initial EKG: Attestation: I personally reviewed and interpreted this EKG as follows: Comments: Sinus rhythm with a rate of 80/min with PACs Prior EKG tracings: available for review Prior: Changed Discharge Plan Triage Chief Complaint: General Illness ED Provider: Evon Wilson Dx/Rx/DC Orders Clinical Impression: Medication side effect, Cephalalgia, Tachycardia, Cellulitis Instructions: Self-Care for Headaches, ED ADVERSE DRUG REACTION Allergic, ED About Arrhythmias Prescriptions: New cephalexin [cephalexin] 500 mg capsule 500 mg PO Q6 Qty: 40 0RF No Action metformin 500 mg tablet 500 mg PO UD Patient Comments: diabetes Rx Instructions: 2 TABS AT BREAKFAST; 1 TAB AT LUNCH; AND 2 TABS AT DINNER. glimepiride 4 mg tablet 4 mg PO BID Patient Comments: blood sugar furosemide 80 MG tablet 80 mg PO DAILY PRN (Reason: edema) acetaminophen [Tylenol Extra Strength] 500 MG tablet 1,000 mg PO PRN PRN (Reason: Pain) ibuprofen 200 MG tablet 200 mg PO PRN PRN (Reason: Pain) metoprolol succinate [Toprol XL] 25 MG tablet extended release 24 hr 25 mg PO DAILY hydrochlorothiazide 25 MG tablet 25 mg PO DAILY Patient Comments: blood pressure/diuretic cholecalciferol (vitamin D3) 2,000 UNIT capsule 4,000 unit PO DAILY aspirin [Jalen Chewable Aspirin] 81 mg tablet,chewable 1 tab PO DAILY nitroglycerin [Nitrostat] 0.4 mg tablet, sublingual 0.4 mg sublingual Q5M Rx Instructions: do not exceed 3 doses per episode amlodipine [Norvasc] 2.5 mg tablet 2.5 mg PO DAILY carvedilol [Coreg] 3.125 mg tablet 3.125 mg PO BID Rx Instructions: must administer with a meal/food Januvia 100 mg tablet 100 mg PO DAILY Primary Care Provider: Arturo Marie Referrals: Arturo Marie MD [Primary Care Provider] - 3-5 Days Disposition Disposition: Home, Self Care Discharge Date/Time: 12/07/22 06:21
[2022-12-07 01:06] LABS: Absolute Lymphocyte Count 1.87 X10^3/uL (0.83-4.51); Absolute Neutrophil Count 3.7 X10^3/uL (2.0-7.7); Basophil# 0.06 X10^3/uL; Basophil% 0.9 % (0-1); Eosinophil# 0.24 X10^3/uL; Eosinophils% 3.8 % (0-5); Hematocrit 43.9 % (37-47); Hemoglobin 14.2 g/dL (12.0-15.0); Lymphocyte # 1.87 X10^3/ul (0.83-4.51); Lymphocyte % 29.4 % (19-41); Mean Corp Hgb Conc 32.3 g/dL (32-36); Mean Corpuscular Hgb 31.9 pg (27.0-32.0); Mean Corpuscular Volume 98.7 fL (81-99); Mean Platelet Vol. 12.1 fl (6.2-12.0); Monocyte# 0.53 X10^3/uL; Monocyte% 8.3 % (0-10); NRBC Flagged by Analyzer 0 % (0-5); Neutrophil # 3.65 X10^3/uL (2.7-7.7); Neutrophil % 57.4 % (47-70); Platelet Count 201 K/mm3 (150-450); RBC Distribution Width CV 13.8 % (11.6-14.6); RBC Distribution Width SD 50.1 fl (35.1-43.9); Red Blood Count 4.45 M/mm3 (4.2-5.4); White Blood Count 6.4 K/mm3 (4.4-11.0)
[2022-12-07 01:24] LABS: Anion Gap 6 (5-15); BUN 25 mg/dL (7-18); BUN/Creat Ratio 28.6 RATIO (10-20); Calcium,Total 9.8 mg/dL (8.5-10.1); Chloride 102 mmol/L (98-107); Creatinine, Serum 0.87 mg/dL (0.55-1.02); EST Glomerular Filtration Rate 66 mL/min (>60); Est Glom Filt Rate - Afr Amer 80 mL/min (>60); Estimated Creatinine Clearance 48.28 ml/min; Glucose 295 mg/dL (74-106); Potassium 3.8 mmol/L (3.5-5.1); Sodium Level 137 mmol/L (136-145); Troponin-I HS 19 pg/mL (3.0-54.0)
[2022-12-07 01:29] VITALS: BP 160/73; PULSE 93; RESP 15
[2022-12-07] MEDS: 0.9% Normal Saline 1,000 ML 150 ML IV (01:49)
[2022-12-07 02:20] LABS: Troponin-I HS 22 pg/mL (3.0-54.0)
[2022-12-07 02:31] VITALS: BP 169/89; PULSE 87; RESP 18; O2SAT 98
--- NOTE | 2022-12-07 02:32 | EKG12_ITS ---
Test Reason : Blood Pressure : / mmHG Vent. Rate : 093 BPM Atrial Rate : 093 BPM P-R Int : 122 ms QRS Dur : 092 ms QT Int : 370 ms P-R-T Axes : 015 018 028 degrees QTc Int : 460 ms Sinus rhythm with marked sinus arrhythmia with Premature atrial complexes Otherwise normal ECG Confirmed by HEMA ACOSTA, U[facility] ([id number]), clinical editor DUGLAS GOLDMAN ([id number]) on 12/08/2022 1:55:19 PM Referred By: RU Confirmed By:UMM GARRIDO MD
[2022-12-07] MEDS: Cephalexin 250 MG Capsule 500 MG PO (02:42)
== END 2022-12-07 06:21 | disposition home or self-care (01) ==
PROVIDERS: Emergency Provider Emergency Medicine; PCP Family Medicine; Visit Provider Emergency Medicine
DX: G44.40 Drug-induced headache, not elsewhere classified, not intractable (principal); E11.40 Type 2 diabetes mellitus with diabetic neuropathy, unspecified; Z68.41 Body mass index [BMI] 40.0-44.9, adult; R00.0 Tachycardia, unspecified; T36.4X5A Adverse effect of tetracyclines, initial encounter; L03.119 Cellulitis of unspecified part of limb; E78.5 Hyperlipidemia, unspecified; I10 Essential (primary) hypertension; E66.9 Obesity, unspecified; Z79.82 Long term (current) use of aspirin; Z79.84 Long term (current) use of oral hypoglycemic drugs; Z79.899 Other long term (current) drug therapy
CPT/HCPCS: 70450; 80048; 83605; 84484; 85025; 93005; 96360; 96361; 99285; A4216

== ENCOUNTER 2023-08-12 11:58 | Observation (INO) | payer MEDICARE, SELFPAY ==
[2023-08-12] VITALS (7 sets, daily range): BP systolic 147–188; BP diastolic 76–132; PULSE 79–115; RESP 16–24; TEMP 36.4–37.2; O2SAT 94–99; BMI 33.5; BMI 32.4
--- NOTE | 2023-08-12 12:21 | EX.ED.DYSGE1 ---
HPI History of Present Illness Chief Complaint: General Illness [facility] Medical History Acute kidney injury Aortic stenosis Atrial fibrillation Chronic venous insufficiency Diabetes mellitus Diabetic neuropathy Diaphragmatic hernia Dyslipidemia Edema of left lower extremity Edema of left lower extremity due to peripheral venous insufficiency Edema of right lower extremity Edema of right lower extremity due to peripheral venous insufficiency Esophageal spasm Esophageal stricture Gastroenteritis GERD (gastroesophageal reflux disease) Hearing deficit Hiatal hernia History of basal cell cancer History of esophageal dilatation HTN (hypertension) Hyperlipidemia Hypokalemia Metabolic acidosis Obesity (BMI 35.0-39.9 without comorbidity) Osteoporosis Overactive bladder Swelling of left lower extremity Swelling of right lower extremity Thrombocytopenia Tinnitus Venous stasis dermatitis Home Medications glimepiride 4 mg tablet 4 mg PO BID DIABETES 07/05/17 [History Last Taken 07/29/23 22:00 4 mg] metformin 500 mg tablet 500 mg PO UD diabetes 07/05/17 [History Last Taken 07/29/23] furosemide 80 mg tablet 80 mg PO DAILY PRN edema 02/01/18 [History Last Taken Unknown] acetaminophen 500 mg tablet (Tylenol Extra Strength) 1,000 mg PO PRN PRN Pain 04/01/18 [History Last Taken 03/31/18] hydrochlorothiazide 25 mg tablet 25 mg PO DAILY diuretic 04/01/18 [History Last Taken 07/29/23 05:00] ibuprofen 200 mg tablet 200 mg PO PRN PRN Pain 04/01/18 [History Last Taken 04/01/18] metoprolol succinate 25 mg tablet,extended release 24 hr (Toprol XL) 25 mg PO DAILY blood pressure 04/01/18 [History Last Taken 07/29/23] cholecalciferol (vitamin D3) 50 mcg (2,000 unit) capsule 4,000 unit PO DAILY supplement 01/11/20 [History Last Taken 08/12/23 10:00 4,000 unit] amlodipine 2.5 mg tablet (Norvasc) 2.5 mg PO DAILY blood pressure 10/10/22 [History Last Taken 08/12/23 17:09 2.5 mg] aspirin 81 mg chewable tablet (Jalen Chewable Low Dose Aspirin) 1 tab PO DAILY blood thinner 10/10/22 [History Last Taken Unknown] carvedilol 3.125 mg tablet (Coreg) 3.125 mg PO BID BP 10/10/22 [History Last Taken 08/12/23 10:00 3.125 mg] nitroglycerin 0.4 mg sublingual tablet (Nitrostat) 0.4 mg sublingual Q5M 10/10/22 [History Last Taken Unknown] sitagliptin phosphate 100 mg tablet (Januvia) 100 mg PO DAILY blood sugar 10/10/22 [History Last Taken 07/29/23] cephalexin 500 mg capsule 500 mg PO Q6 #40 CAPSULES 12/07/22 [Rx Last Taken Unknown] Allergy/AdvReac Type Severity Reaction Status Date / Time acetaminophen [From Vicodin] Allergy Other Verified 08/12/23 11:59 celecoxib [From Celebrex] Allergy Unknown Verified 08/12/23 11:59 codeine Allergy Unknown Verified 08/12/23 11:59 hydrocodone [From Vicodin] Allergy Other Verified 08/12/23 11:59 morphine Allergy Other Verified 08/12/23 11:59 niacin Allergy Unknown Verified 08/12/23 11:59 Penicillins Allergy Unknown Verified 08/12/23 11:59 prednisone Allergy Unknown Verified 08/12/23 11:59 Sulfa (Sulfonamide Allergy Unknown Verified 08/12/23 11:59 Antibiotics) Family History Mother Asthma Father Heart disease Hypertension Arthritis Surgical History History of cholecystectomy History of laparoscopic cholecystectomy History of nasal surgery History of surgery on left wrist History of tonsillectomy history ORIF left wrist History repair broken nose Social History Smoking Status: Never smoker alcohol intake: never substance use type: does not use EXAM Physical Exam Const Vital Signs: 08/12/23 11:59 08/12/23 11:59 08/12/23 13:59 Temperature 97.6 F L Temperature Source Temporal Pulse Rate 115 H 100 Respiratory Rate 16 18 Respiratory Effort Normal Non-Labored Respiratory Pattern Normal Blood Pressure 182/132 H 168/93 H Blood Pressure Mean 148 118 Pulse Ox 96 94 Oxygen Delivery Method Room Air Room Air 08/12/23 14:01 08/12/23 15:00 08/12/23 15:00 Temperature 98.9 F 98.3 F Temperature Source Temporal Temporal Pulse Rate 79 88 93 Respiratory Rate 16 24 H 18 Respiratory Effort Respiratory Pattern Blood Pressure 168/93 H 188/83 H 188/83 H Blood Pressure Mean 118 118 118 Pulse Ox 96 99 98 Oxygen Delivery Method Room Air Room Air Room Air [facility] [place] Narrative Medical decision making narrative: HISTORY OF PRESENT ILLNESS: 83-year-old female presents with concern for abnormal labs. States that she is at urgent care diagnosed with cellulitis and started antibiotics. REVIEW OF SYSTEMS: Pertinent positives: Leg redness Pertinent negatives: Vomiting, fever PHYSICAL EXAM: Nursing triage notes reviewed, Vital signs reviewed Constitutional: please see mdm HENT: MMM Eyes: Pupils equal round and reactive to light, Extraocular muscles intact Neck: No stridor, no JVD, full neck ROM Lungs: Clear to auscultation, No wheezing or rales. No increased work of breathing, no conversational dyspnea, no accessory muscle use, no nasal flaring. No respiratory distress noted Heart: Regular rate and rhythm, No murmurs, No rubs and No gallops, 2+ distal pulses (radial, femoral, posterior tibial) in all extremities Abdomen: Soft, there is no tenderness, rigidity, rebound or guarding, no obvious peritoneal signs, no palpable pulsatile abdominal masses, no auscultated abdominal bruit : No CVAT Extremities: No edema, compartments are soft Neuro: No focal neurological deficits, cranial nerves II through XII intact, 5/5 strength in all extremities. Intact sensation to light touch in all extremities, 2+ reflexes bilateral patella tendons. Normal gait. No ataxia. Skin: Confluent erythema noted to the right lower extremity, no crepitus or bullae, no fluctuance induration, no pain on proportion to exam, MEDICAL DECISION MAKING: Chief Complaint: Abnormal lab External records reviewed: Last ED visit reviewed: Seen in the ED in December 2022 for cellulitis Factors affecting care: Hypertension, lipidemia, type 2 diabetes, history of basal cell cancer, venous stasis dermatitis, chronic lower extremity edema, hiatal hernia Consults: Internal medicine (hospitalist) [facility] Narrative: Patient was initially hypertensive, tachycardic but afebrile. Exam consistent with cellulitis. Given patient lives alone, swelling cannot ambulate long she is not appropriate for discharge. She will be admitted for IV antibiotics I considered the following differential diagnosis: Cellulitis, necrotizing fasciitis, compartment syndrome Exam not consistent with necrotizing fasciitis or compartment syndrome. ALL IMAGES (IF OBTAINED) HAVE BEEN PERSONALLY REVIEWED AND INTERPRETED BY MYSELF. CBC without leukocytosis, severe anemia, no thrombocytopenia. Lactate is wnl indicating no end-organ hypoperfusion and/or hypoxia. VBG without evidence of DKA BMP without evidence of significant electrolyte abnormalities, no anion gap, no acute kidney injury. LFTs show no evidence of hepatobiliary pathology. The patient and/or family, caregivers express understanding. The patient and/or family, caregivers agrees with the plan. Shared decision making: I will have a discussion with the patient and or visitors regarding risk/benefits of further testing or admission. They will be made aware of of the risk/benefits inherent in this decision they will be given the opportunity to voice understanding. Total critical care time today provided was at least 0 minutes. This excludes separately billable procedures. Critical care time (if documented) is secondary to the patient having high probability of clinically significant/life threatening deterioration in the patient's condition which required my urgent intervention. Impression: 1. Cellulitis 2. Hyperglycemia 3. History of diabetes Dispo: Admit to hospitalist This note was generated with [employer] dictation software. It may contain incorrect words, spelling, and punctuation that were not noted in review of the chart prior to signing. Lab Data Labs: Laboratory Results - last 24 hr 08/12/23 13:01 WBC 5.0 RBC 4.21 Hgb 13.2 Hct 40.4 MCV 96.0 MCH 31.4 MCHC 32.7 RDW Std Deviation 47.0 H RDW Coeff of Eduardo 13.3 Plt Count 162 MPV 11.1 Immature Gran % (Auto) 0.400 Neut % (Auto) 66.1 Lymph % (Auto) 23.1 [place] % (Auto) 7.8 Eos % (Auto) 1.6 Baso % (Auto) 1.0 Absolute Neuts (auto) 3.3 Absolute Lymphs (auto) 1.16 Nucleated RBC % 0 Sodium 136 Potassium 4.2 Chloride 100 Carbon Dioxide 24.0 Anion Gap 12 BUN 21 H Creatinine 0.82 Estim Creat Clear Calc 62.33 Est GFR (MDRD) Af Amer 86 Est GFR (MDRD) Non-Af 71 BUN/Creatinine Ratio 25.5 H Glucose 440 H Hemoglobin A1c 12.3 H Lactic Acid 1.4 Calcium 9.8 Total Bilirubin 1.10 H AST 16 ALT 24 Alkaline Phosphatase 214 H Total Protein 6.5 Albumin 3.3 Globulin 3.2 Albumin/Globulin Ratio 1.0 Acetone Level SMALL H ABG Data ABG results: ABG 08/12/23 13:18 Specimen Type JASON Sample Site Not entered VBG pH 7.36 VBG pO2 39 VBG HCO3 24 VBG Total CO2 25 VBG O2 Sat (Calc) 72 H VBG Base Excess -2 L POC Mix VBG pCO2 Pt Tmp 41.5 O2 Delivery Device Not entered Discharge Plan Disposition Disposition: Acute Care Hospital [facility] Discharge Date/Time: 08/12/23 16:44
[2023-08-12 13:13] LABS: Absolute Lymphocyte Count 1.16 X10^3/uL (0.83-4.51); Absolute Neutrophil Count 3.3 X10^3/uL (2.0-7.7); Basophil# 0.05 X10^3/uL; Eosinophil# 0.08 X10^3/uL; Eosinophils% 1.6 % (0-5); Hematocrit 40.4 % (37-47); Hemoglobin 13.2 g/dL (12.0-15.0); Lymphocyte # 1.16 X10^3/ul (0.83-4.51); Lymphocyte % 23.1 % (19-41); Mean Corp Hgb Conc 32.7 g/dL (32-36); Mean Corpuscular Hgb 31.4 pg (27.0-32.0); Mean Platelet Vol. 11.1 fl (6.2-12.0); Monocyte# 0.39 X10^3/uL; Monocyte% 7.8 % (0-10); NRBC Flagged by Analyzer 0 % (0-5); Neutrophil # 3.32 X10^3/uL (2.7-7.7); Neutrophil % 66.1 % (47-70); Platelet Count 162 K/mm3 (150-450); RBC Distribution Width CV 13.3 % (11.6-14.6); Red Blood Count 4.21 M/mm3 (4.2-5.4)
[2023-08-12] MEDS: 0.9% Normal Saline (500mL Bag) 500 ML 999 ML IV (13:17)
[2023-08-12 13:22] LABS: Blood Gas Specimen Type VEN; O2 Delivery Device Not entered; SITE Not entered; VBG BASE EXCESS -2 mmol/L (-1.0-3.5); VBG Bicarbonate 24 mmol/L (22-26); VBG PO2 39 mmHg (25-40); VBG SO2 72 % (50-70); VBG TCO2 25 mmol/L (23-33); VBG pCO2 41.5 mmHg (41-51); VBG pH 7.36 (7.32-7.42)
[2023-08-12 13:30] LABS: AST(SGOT) 16 U/L (15-37); Alanine Aminotransfer ALT/SGPT 24 U/L (13-56); Albumin, Serum 3.3 g/dL (3.2-5.0); Alkaline Phosphatase 214 U/L (45-117); Anion Gap 12 (5-15); BUN 21 mg/dL (7-18); BUN/Creat Ratio 25.5 RATIO (10-20); Calcium,Total 9.8 mg/dL (8.5-10.1); Chloride 100 mmol/L (98-107); Creatinine, Serum 0.82 mg/dL (0.55-1.02); EST Glomerular Filtration Rate 71 mL/min (>60); Est Glom Filt Rate - Afr Amer 86 mL/min (>60); Estimated Creatinine Clearance 62.33 ml/min; Globulin 3.2 g/dL (2.2-4.2); Glucose 440 mg/dL (74-106); Potassium 4.2 mmol/L (3.5-5.1); Protein, Total 6.5 g/dL (6.4-8.2); Sodium Level 136 mmol/L (136-145)
[2023-08-12 13:38] LABS: Lactic Acid 1.4 mmol/L (0.4-1.9)
[2023-08-12] MEDS: Vancomycin HCl 1,250 MG in 0.9% Normal Saline (250mL Bag) 250 ML 167 MG IV (13:48)
[2023-08-12] MEDS: hydroCHLOROthiazide 25 MG Tablet PO (13:49)
[2023-08-12] MEDS: amLODIPine 2.5 MG Tablet PO (13:49)
[2023-08-12] MEDS: Carvedilol 3.125 MG TABLET PO ×2 (13:49→23:30)
--- NOTE | 2023-08-12 14:12 | ED.RN ---
THIS COVERING ASSIGNED RN LUNCH 1400 VITALS UPDATED.
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
--- NOTE | 2023-08-12 15:46 | NURSING ---
MED SURG MOSTELLER CELLULITIS
[2023-08-12 16:28] LABS: Hemoglobin A1c 12.3 % (3.8-5.6)
--- NOTE | 2023-08-12 17:25 | PCM.RX.CS ---
Consult Antibiotic Management Pharmacy has been consulted to manage selected antibiotic: Vancomycin Type of Intervention Type of Consult: New Suspected Infection Suspected Infection: Skin/Soft tissue Labs Labs: Sodium 136 mmol/L (136-145) 08/12/23 13:01 Potassium 4.2 mmol/L (3.5-5.1) 08/12/23 13:01 Chloride 100 mmol/L (98-107) 08/12/23 13:01 Carbon Dioxide 24.0 mmol/L (21.0-32.0) 08/12/23 13:01 Anion Gap 12 (5-15) 08/12/23 13:01 BUN 21 mg/dL (7-18) H 08/12/23 13:01 Creatinine 0.82 mg/dL (0.55-1.02) 08/12/23 13:01 Est GFR (MDRD) Af Amer 86 mL/min (>60) 08/12/23 13:01 Est GFR (MDRD) Non-Af 71 mL/min (>60) 08/12/23 13:01 BUN/Creatinine Ratio 25.5 RATIO (10-20) H 08/12/23 13:01 Glucose 440 mg/dL (74-106) H 08/12/23 13:01 Goal Trough Goal Trough: 15-20 mcg/mL Pharmacy Plan for Drug Dosing Pharmacy Plan for Drug Dosing: IV VANCOMYCIN Consulting Physician: Dr. Bautista Indication: SSTI Goal Trough: 15-20 SrCr: 0.82 CrCl: 62 mL/min Comments: patient had initial dose of vancomycin 1250mg in ED administered 08/11 @1348 Vancomycin Dose: 1250mg IV Q12hr to start 08/13/23 @0100 Pending Level: 08/14/23 @0030, prior to 4th total dose per protocol Pharmacy Service will continue to monitor and adjust dosing as required.
[2023-08-12] MEDS: Cefepime HCl 2 GM in 0.9% Normal Saline (100mL MB+) 100 ML IV ×2 (17:32→23:36)
[2023-08-12 18:04] LABS: Bedside Glucose 333 mg/dL (74-106)
[2023-08-12] MEDS: Insulin Lispro 100 UNIT/ML INSULN.PEN SC ×2 (18:05→23:35)
[2023-08-12] MEDS: 0.9% Saline Lock 10 ML Syringe IV (23:29)
[2023-08-12] MEDS: Acetaminophen 325 MG Tablet 650 MG PO (23:30)
[2023-08-13 00:35] LABS: Bedside Glucose 284 mg/dL (74-106)
[2023-08-13] MEDS: Vancomycin HCl 1,250 MG in 0.9% Normal Saline (250mL Bag) 250 ML 167 MG IV ×2 (00:52→11:43)
[2023-08-13 04:07] VITALS: BP 119/66; PULSE 60; RESP 16; TEMP 36.4; O2SAT 94
[2023-08-13] MEDS: Cefepime HCl 2 GM in 0.9% Normal Saline (100mL MB+) 100 ML IV ×2 (04:58→13:55)
[2023-08-13 06:40] LABS: Hematocrit 40.8 % (37-47); Hemoglobin 13.7 g/dL (12.0-15.0); Mean Corp Hgb Conc 33.6 g/dL (32-36); Mean Corpuscular Hgb 32.2 pg (27.0-32.0); Mean Corpuscular Volume 95.8 fL (81-99); Mean Platelet Vol. 11.3 fl (6.2-12.0); Platelet Count 185 K/mm3 (150-450); RBC Distribution Width CV 13.2 % (11.6-14.6); RBC Distribution Width SD 47.2 fl (35.1-43.9); Red Blood Count 4.26 M/mm3 (4.2-5.4); White Blood Count 5.6 K/mm3 (4.4-11.0)
[2023-08-13 06:57] LABS: Anion Gap 7 (5-15); BUN 18 mg/dL (7-18); BUN/Creat Ratio 28.2 RATIO (10-20); Calcium,Total 9.5 mg/dL (8.5-10.1); Chloride 103 mmol/L (98-107); Creatinine, Serum 0.64 mg/dL (0.55-1.02); EST Glomerular Filtration Rate 95 mL/min (>60); Est Glom Filt Rate - Afr Amer 115 mL/min (>60); Estimated Creatinine Clearance 62.88 ml/min; Glucose 271 mg/dL (74-106); Potassium 3.5 mmol/L (3.5-5.1); Sodium Level 137 mmol/L (136-145)
[2023-08-13] MEDS: Insulin Lispro 100 UNIT/ML INSULN.PEN SC ×4 (07:01→21:39)
--- NOTE | 2023-08-13 07:39 | PCM.HP.STD ---
HPI - General General Date of Admission: 08/12/23 Chief Complaint: Worsening right lower leg pain and swelling, difficulty with ambulation HPI Narrative GENIA LIZ, is a 83 F who presents [facility] Medical History Acute kidney injury Aortic stenosis Atrial fibrillation Chronic venous insufficiency Diabetes mellitus Diabetic neuropathy Diaphragmatic hernia Dyslipidemia Edema of left lower extremity Edema of left lower extremity due to peripheral venous insufficiency Edema of right lower extremity Edema of right lower extremity due to peripheral venous insufficiency Esophageal spasm Esophageal stricture Gastroenteritis GERD (gastroesophageal reflux disease) Hearing deficit Hiatal hernia History of basal cell cancer History of esophageal dilatation HTN (hypertension) Hyperlipidemia Hypokalemia Metabolic acidosis Obesity (BMI 35.0-39.9 without comorbidity) Osteoporosis Overactive bladder Swelling of left lower extremity Swelling of right lower extremity Thrombocytopenia Tinnitus Venous stasis dermatitis Home Medications glimepiride 4 mg tablet 4 mg PO BID DIABETES 07/05/17 [History Last Taken 07/29/23 22:00 4 mg] metformin 500 mg tablet 500 mg PO UD diabetes 07/05/17 [History Last Taken 07/29/23] furosemide 80 mg tablet 80 mg PO DAILY PRN edema 02/01/18 [History Last Taken Unknown] acetaminophen 500 mg tablet (Tylenol Extra Strength) 1,000 mg PO PRN PRN Pain 04/01/18 [History Last Taken 03/31/18] hydrochlorothiazide 25 mg tablet 25 mg PO DAILY diuretic 04/01/18 [History Last Taken 07/29/23 05:00] ibuprofen 200 mg tablet 200 mg PO PRN PRN Pain 04/01/18 [History Last Taken 04/01/18] metoprolol succinate 25 mg tablet,extended release 24 hr (Toprol XL) 25 mg PO DAILY blood pressure 04/01/18 [History Last Taken 07/29/23] cholecalciferol (vitamin D3) 50 mcg (2,000 unit) capsule 4,000 unit PO DAILY supplement 01/11/20 [History Last Taken 08/12/23 10:00 4,000 unit] amlodipine 2.5 mg tablet (Norvasc) 2.5 mg PO DAILY blood pressure 10/10/22 [History Last Taken 08/12/23 17:09 2.5 mg] aspirin 81 mg chewable tablet (Jalen Chewable Low Dose Aspirin) 1 tab PO DAILY blood thinner 10/10/22 [History Last Taken Unknown] carvedilol 3.125 mg tablet (Coreg) 3.125 mg PO BID BP 10/10/22 [History Last Taken 08/12/23 10:00 3.125 mg] nitroglycerin 0.4 mg sublingual tablet (Nitrostat) 0.4 mg sublingual Q5M 10/10/22 [History Last Taken Unknown] sitagliptin phosphate 100 mg tablet (Januvia) 100 mg PO DAILY blood sugar 10/10/22 [History Last Taken 07/29/23] cephalexin 500 mg capsule 500 mg PO Q6 #40 CAPSULES 12/07/22 [Rx Last Taken Unknown] Allergy/AdvReac Type Severity Reaction Status Date / Time acetaminophen [From Vicodin] Allergy Other Verified 08/12/23 11:59 celecoxib [From Celebrex] Allergy Unknown Verified 08/12/23 11:59 codeine Allergy Unknown Verified 08/12/23 11:59 hydrocodone [From Vicodin] Allergy Other Verified 08/12/23 11:59 morphine Allergy Other Verified 08/12/23 11:59 niacin Allergy Unknown Verified 08/12/23 11:59 Penicillins Allergy Unknown Verified 08/12/23 11:59 prednisone Allergy Unknown Verified 08/12/23 11:59 Sulfa (Sulfonamide Allergy Unknown Verified 08/12/23 11:59 Antibiotics) Family History Mother Asthma Father Heart disease Hypertension Arthritis Surgical History History of cholecystectomy History of laparoscopic cholecystectomy History of nasal surgery History of surgery on left wrist History of tonsillectomy history ORIF left wrist History repair broken nose Social History Smoking Status: Never smoker alcohol intake: never substance use type: does not use Vital Signs Vital Signs Vital Signs: 08/12/23 11:59 08/12/23 11:59 08/12/23 13:59 Temperature 97.6 F L Temperature Source Temporal Pulse Rate 115 H 100 Respiratory Rate 16 18 Respiratory Effort Normal Non-Labored Respiratory Depth Respiratory Pattern Normal Blood Pressure 182/132 H 168/93 H Blood Pressure Mean 148 118 Blood Pressure Source Blood Pressure Position Blood Pressure Location Pulse Ox 96 94 Oxygen Delivery Method Room Air Room Air 08/12/23 14:01 08/12/23 15:00 08/12/23 15:00 Temperature 98.9 F 98.3 F Temperature Source Temporal Temporal Pulse Rate 79 88 93 Respiratory Rate 16 24 H 18 Respiratory Effort Respiratory Depth Respiratory Pattern Blood Pressure 168/93 H 188/83 H 188/83 H Blood Pressure Mean 118 118 118 Blood Pressure Source Blood Pressure Position Blood Pressure Location Pulse Ox 96 99 98 Oxygen Delivery Method Room Air Room Air Room Air 08/12/23 16:22 08/12/23 16:00 08/12/23 22:50 Temperature 98.6 F 98.6 F 97.7 F L Temperature Source Oral Oral Pulse Rate 98 99 80 Respiratory Rate 22 H 23 H 18 Respiratory Effort Respiratory Depth Respiratory Pattern Blood Pressure 163/109 H 163/109 H 147/76 H Blood Pressure Mean 127 127 99 Blood Pressure Source Monitor Blood Pressure Position Semi-Fowlers Blood Pressure Location Left Arm Pulse Ox 97 97 96 Oxygen Delivery Method Room Air Room Air 08/12/23 22:55 08/13/23 04:07 Temperature 97.5 F L Temperature Source Oral Pulse Rate 60 Respiratory Rate 16 Respiratory Effort Normal Non-Labored Respiratory Depth Normal Respiratory Pattern Normal Blood Pressure 119/66 Blood Pressure Mean 83 Blood Pressure Source Blood Pressure Position Blood Pressure Location Pulse Ox 94 Oxygen Delivery Method Room Air Room Air Weight Weight: 201 lb 15.095 oz Body Mass Index (BMI) 32.4 Results Lab / Micro Data 08/13/23 05:08 08/13/23 05:08 Labs: Laboratory Results - last 24 hr 08/12/23 13:01: WBC 5.0, RBC 4.21, Hgb 13.2, Hct 40.4, MCV 96.0, MCH 31.4, MCHC 32.7, RDW Std Deviation 47.0 H, RDW Coeff of Eduardo 13.3, Plt Count 162, MPV 11.1, Immature Gran % (Auto) 0.400, Neut % (Auto) 66.1, Lymph % (Auto) 23.1, [place] % (Auto) 7.8, Eos % (Auto) 1.6, Baso % (Auto) 1.0, Absolute Neuts (auto) 3.3, Absolute Lymphs (auto) 1.16, Nucleated RBC % 0, Sodium 136, Potassium 4.2, Chloride 100, Carbon Dioxide 24.0, Anion Gap 12, BUN 21 H, Creatinine 0.82, Estim Creat Clear Calc 62.33, Est GFR (MDRD) Af Amer 86, Est GFR (MDRD) Non-Af 71, BUN/Creatinine Ratio 25.5 H, Glucose 440 H, Hemoglobin A1c 12.3 H, Lactic Acid 1.4, Calcium 9.8, Total Bilirubin 1.10 H, AST 16, ALT 24, Alkaline Phosphatase 214 H, Total Protein 6.5, Albumin 3.3, Globulin 3.2, Albumin/Globulin Ratio 1.0, Acetone Level SMALL H 08/12/23 17:44: POC Glucose 333 H 08/12/23 23:33: POC Glucose 284 H 08/13/23 05:08: WBC 5.6, RBC 4.26, Hgb 13.7, Hct 40.8, MCV 95.8, MCH 32.2 H, MCHC 33.6, RDW Std Deviation 47.2 H, RDW Coeff of Eduardo 13.2, Plt Count 185, MPV 11.3, Sodium 137, Potassium 3.5, Chloride 103, Carbon Dioxide 27.0, Anion Gap 7, BUN 18, Creatinine 0.64, Estim Creat Clear Calc 62.88, Est GFR (MDRD) Af Amer 115, Est GFR (MDRD) Non-Af 95, BUN/Creatinine Ratio 28.2 H, Glucose 271 H, Calcium 9.5 ABG Data ABG results: ABG 08/12/23 13:18 Specimen Type JASON Sample Site Not entered VBG pH 7.36 VBG pO2 39 VBG HCO3 24 VBG Total CO2 25 VBG O2 Sat (Calc) 72 H VBG Base Excess -2 L POC Mix VBG pCO2 Pt Tmp 41.5 O2 Delivery Device Not entered Assessment & Plan Assessment/Plan (1) Cellulitis of right leg: (2) Venous stasis dermatitis: (3) Diabetes mellitus, type 2: (4) HTN (hypertension): QUALIFIERS: Hypertension type: unspecified secondary hypertension Qualified Code(s): I15.9 - Secondary hypertension, unspecified; I15 - Secondary hypertension (5) Depressed: (6) Nonadherence to medication: PLAN: Plan Patient is an 83-year-old female who presented [facility] ED on 08/12/2023 with worsening right lower leg pain and swelling and difficulty with ambulation. 1. Right lower extremity cellulitis, chronic lower extremity venous stasis dermatitis ? Admit under inpatient status to PCU. Wound care consulted. Notably had vascular studies done in September of last year given her chronic lower extremity venous stasis dermatitis and these showed no significant peripheral artery disease. Will treat with vancomycin and cefepime for now given concern for polymicrobial diabetic foot infection. Blood cultures ordered. Monitor closely. 2. Mild acute debility ? PT/OT/case management consulted. Lives at home alone, generally has good functional status, has been limited because of right lower extremity cellulitis. 3. Depressive state, medication nonadherence ? Reports acute depressive state over the past few months due to significant family issues. Nonadherent to home medications for 3 to 4 weeks. She had good insight and was aware that not taking her home medications likely contributed to her current presentation, and she is agreeable to resuming her home medications at discharge. Recommend outpatient follow-up with PCP and outpatient referral to counseling. 4. Poorly controlled type 2 diabetes mellitus ? Home regimen of metformin 500 mg daily, Sitagliptin 100 mg daily, glimepiride 4 mg twice daily. Nonadherent to regimen recently as noted above. Blood glucose 440 on admit. A1c 12.4%. Will start Lantus 15 units at night with sliding scale insulin with meals while here. Will need to discuss with patient on best home-going regimen on discharge. 5. Essential hypertension ? Home regimen of amlodipine 2.5 mg daily, Coreg 3.125 mg twice daily, hydrochlorothiazide 25 mg daily, Lasix 80 mg daily as needed. Recent nonadherence as noted above. Will resume home regimen but hold Lasix as patient was mildly hypokalemic on admit. Labetalol as needed for SBP > 180. Titrate home regimen as needed. Chronic medical conditions: ? Obesity: BMI 33 on admit. Complicates hospital course, care and prognosis. ? Frequent PACs: EKG on admit showed normal sinus rhythm with frequent PACs. On review of prior EKGs for the past several years, has had frequent PACs noted before. Last echo in 02/2020 showed EF 65%, mild enlarged LA, RVSP mildly elevated at 32 mmHg. Continue home Coreg. ? Mild aortic stenosis: Noted on echo in 02/2020. Outpatient follow-up as needed. DVT prophylaxis: Lovenox CODE STATUS: Full code, verified Expected disposition: Home, 2 to 3 days Total clinical time spent by myself addressing the patient's medical issues, reviewing all the data, and collaborating with patient's care team: 55 minutes.
[2023-08-13 08:00] VITALS: O2SAT 95
--- NOTE | 2023-08-13 08:30 | PCM.PN.HOSP ---
Reason for Visit Reason for Visit: Diagnoses Type 2 diabetes mellitus without complications (08/12/23) Major depressive disorder, single episode, unspecified (08/12/23) Secondary hypertension (08/12/23) Secondary hypertension, unspecified (08/12/23) Venous insufficiency (chronic) (peripheral) (08/12/23) Cellulitis of right lower limb (08/12/23) Patient's other noncompliance with medication regimen for other reason (08/12/23) Objective Data Objective Data Vital Signs: Vital Signs Temp Pulse Resp BP Pulse Ox O2 Del Method 97.5 F L 60 16 119/66 95 Room Air 08/13/23 04:07 08/13/23 04:07 08/13/23 04:07 08/13/23 04:07 08/13/23 08:00 08/13/23 08:00 Oxygen Delivery Method Room Air Weight: 201 lb 15.095 oz Body Mass Index (BMI) 32.4 Intake & Output: Intake and Output for Last 24 Hours 08/11/23 08/12/23 08/13/23 23:59 23:59 23:59 Intake Total 875 / 875 475 / 475 Balance 875 / 875 475 / 475 Lab / Micro Data 08/13/23 05:08 08/13/23 05:08 Labs: Laboratory Results - last 24 hr 08/12/23 13:01: WBC 5.0, RBC 4.21, Hgb 13.2, Hct 40.4, MCV 96.0, MCH 31.4, MCHC 32.7, RDW Std Deviation 47.0 H, RDW Coeff of Eduardo 13.3, Plt Count 162, MPV 11.1, Immature Gran % (Auto) 0.400, Neut % (Auto) 66.1, Lymph % (Auto) 23.1, [place] % (Auto) 7.8, Eos % (Auto) 1.6, Baso % (Auto) 1.0, Absolute Neuts (auto) 3.3, Absolute Lymphs (auto) 1.16, Nucleated RBC % 0, Sodium 136, Potassium 4.2, Chloride 100, Carbon Dioxide 24.0, Anion Gap 12, BUN 21 H, Creatinine 0.82, Estim Creat Clear Calc 62.33, Est GFR (MDRD) Af Amer 86, Est GFR (MDRD) Non-Af 71, BUN/Creatinine Ratio 25.5 H, Glucose 440 H, Hemoglobin A1c 12.3 H, Lactic Acid 1.4, Calcium 9.8, Total Bilirubin 1.10 H, AST 16, ALT 24, Alkaline Phosphatase 214 H, Total Protein 6.5, Albumin 3.3, Globulin 3.2, Albumin/Globulin Ratio 1.0, Acetone Level SMALL H 08/12/23 17:44: POC Glucose 333 H 08/12/23 23:33: POC Glucose 284 H 08/13/23 05:08: WBC 5.6, RBC 4.26, Hgb 13.7, Hct 40.8, MCV 95.8, MCH 32.2 H, MCHC 33.6, RDW Std Deviation 47.2 H, RDW Coeff of Eduardo 13.2, Plt Count 185, MPV 11.3, Sodium 137, Potassium 3.5, Chloride 103, Carbon Dioxide 27.0, Anion Gap 7, BUN 18, Creatinine 0.64, Estim Creat Clear Calc 62.88, Est GFR (MDRD) Af Amer 115, Est GFR (MDRD) Non-Af 95, BUN/Creatinine Ratio 28.2 H, Glucose 271 H, Calcium 9.5 ABG Data ABG results: ABG 08/12/23 13:18 Specimen Type JASON Sample Site Not entered VBG pH 7.36 VBG pO2 39 VBG HCO3 24 VBG Total CO2 25 VBG O2 Sat (Calc) 72 H VBG Base Excess -2 L POC Mix VBG pCO2 Pt Tmp 41.5 O2 Delivery Device Not entered Physical Exam Narrative Seen and examined. Patient is stated she has recurrent right cellulitis for more than 6 months. She had zapped her right leg in the car door once or twice. She had multiple rounds of antibiotics at least 2 times but it comes back. Physical exam General: Alert, Oriented x3, Cooperative HEENT: Atraumatic, PERRLA, EOMI, Normocephalic Oral: No Gingival or Mucosal Lesions/ Ulcerations Neck: Supple, No JVD, Negative Carotid Bruits Chest wall/Lungs: Air entry diminished in bilateral lung bases. No crepitation/rhonchi Cardiovascular: Regular rate, Regular Rhythm, Normal S1, Normal S2, No M/G/R Abdomen: Bowel Sounds Present, Soft, Non Tender, Non-Distended : No dysuria. No renal angle tenderness. No suprapubic tenderness. Extremities: No edema, Capillary Refill Less than 3 Seconds Skin: Right lower lobe, erythematous indurated tender thickening suggestive of cellulitis. Chronic bilateral venous stasis. No open ulcer. Musculoskeletal: No Tenderness to Palpation of Joints or Extremities Neurological: Cranial nerves II-XII grossly intact, DTR 2+/4. No acute focal neurological deficit. Psych/Mental Status: Normal Affect, Appropriate. Assessment & Plan Assessment/Plan (1) Cellulitis of right leg: (2) Venous stasis dermatitis: (3) Diabetes mellitus, type 2: (4) HTN (hypertension): QUALIFIERS: Hypertension type: unspecified secondary hypertension Qualified Code(s): I15.9 - Secondary hypertension, unspecified; I15 - Secondary hypertension (5) Depressed: (6) Nonadherence to medication: PLAN: Plan Patient is an 83-year-old female who presented [facility] ED on 08/12/2023 with worsening right lower leg pain and swelling and difficulty with ambulation. 1. Right lower extremity cellulitis, chronic lower extremity venous stasis dermatitis ? Admit under inpatient status to PCU. Wound care consulted. Notably had vascular studies done in September of last year given her chronic lower extremity venous stasis dermatitis and these showed no significant peripheral artery disease. Patient was started on vancomycin and cefepime for now given concern for polymicrobial diabetic foot infection. Blood cultures ordered. Monitor closely. 08/12: With history of recurrent cellulitis and ongoing history for more than 6 months, ID was consulted. Nonpurulent cellulitis. Antibiotic narrowed down to IV cefazolin. Anticipate short course of p.o. antibiotic at time of discharge. 2. Mild acute debility ? PT/OT/case management consulted. Lives at home alone, generally has good functional status, has been limited because of right lower extremity cellulitis. 3. Depressive state, medication nonadherence ? Reports acute depressive state over the past few months due to significant family issues. Nonadherent to home medications for 3 to 4 weeks. She had good insight and was aware that not taking her home medications likely contributed to her current presentation, and she is agreeable to resuming her home medications at discharge. Recommend outpatient follow-up with PCP and outpatient referral to counseling. 4. Poorly controlled type 2 diabetes mellitus ? Home regimen of metformin 500 mg daily, Sitagliptin 100 mg daily, glimepiride 4 mg twice daily. Nonadherent to regimen recently as noted above. Blood glucose 440 on admit. A1c 12.4%. Will start Lantus 15 units at night with sliding scale insulin with meals while here. Will need to discuss with patient on best home-going regimen on discharge. 5. Essential hypertension ? Home regimen of amlodipine 2.5 mg daily, Coreg 3.125 mg twice daily, hydrochlorothiazide 25 mg daily, Lasix 80 mg daily as needed. Recent nonadherence as noted above. Will resume home regimen but hold Lasix as patient was mildly hypokalemic on admit. Labetalol as needed for SBP > 180. Titrate home regimen as needed. Chronic medical conditions: ? Obesity: BMI 33 on admit. Complicates hospital course, care and prognosis. ? Frequent PACs: EKG on admit showed normal sinus rhythm with frequent PACs. On review of prior EKGs for the past several years, has had frequent PACs noted before. Last echo in 02/2020 showed EF 65%, mild enlarged LA, RVSP mildly elevated at 32 mmHg. Continue home Coreg. ? Mild aortic stenosis: Noted on echo in 02/2020. Outpatient follow-up as needed. DVT prophylaxis: Lovenox CODE STATUS: Full code, verified Charges/Coding Visit Charges Inpatient E&M: 21729 Subs Hosp L2
[2023-08-13] MEDS: Carvedilol 3.125 MG TABLET PO ×2 (08:52→21:39)
[2023-08-13] MEDS: Aspirin 81 MG TAB.CHEW PO (08:52)
[2023-08-13] MEDS: hydroCHLOROthiazide 25 MG Tablet PO (08:52)
[2023-08-13] MEDS: Enoxaparin 40 MG/0.4 ML Syringe SC (08:52)
[2023-08-13] MEDS: Cholecalciferol (VIT D3) 25 MCG TABLET (1,000 UNITS) 50 MCG PO (08:52)
[2023-08-13] MEDS: amLODIPine 2.5 MG Tablet PO (08:52)
[2023-08-13 09:57] VITALS: BP 137/81; PULSE 72; RESP 14; TEMP 36.6; O2SAT 97
[2023-08-13 11:21] LABS: Bedside Glucose 250 mg/dL (74-106)
[2023-08-13] MEDS: Acetaminophen 325 MG Tablet 650 MG PO ×2 (11:42→20:09)
[2023-08-13 12:06] LABS: Bedside Glucose 397 mg/dL (74-106)
--- NOTE | 2023-08-13 12:52 | WOUNDNOTE ---
wound photo: right lower leg
--- NOTE | 2023-08-13 12:53 | WOUNDNOTE ---
wound photo: left lower leg
--- NOTE | 2023-08-13 12:55 | PCM.RX.CS ---
Consult Antibiotic Management Pharmacy has been consulted to manage selected antibiotic: Vancomycin Type of Intervention Type of Consult: Follow-up Suspected Infection Suspected Infection: Skin/Soft tissue Prior Doses of Antibiotics Prior Doses of Antibiotics Received/Current Regimen: 08/12/23 @ 1348 08/13/23 @ 0052 08/13/23 @ 1143 VANCOMYCIN 1250MG EVERY 12 HOURS Labs Labs: Sodium 137 mmol/L (136-145) 08/13/23 05:08 Potassium 3.5 mmol/L (3.5-5.1) 08/13/23 05:08 Chloride 103 mmol/L (98-107) 08/13/23 05:08 Carbon Dioxide 27.0 mmol/L (21.0-32.0) 08/13/23 05:08 Anion Gap 7 (5-15) 08/13/23 05:08 BUN 18 mg/dL (7-18) 08/13/23 05:08 Creatinine 0.64 mg/dL (0.55-1.02) 08/13/23 05:08 Est GFR (MDRD) Af Amer 115 mL/min (>60) 08/13/23 05:08 Est GFR (MDRD) Non-Af 95 mL/min (>60) 08/13/23 05:08 BUN/Creatinine Ratio 28.2 RATIO (10-20) H 08/13/23 05:08 Glucose 271 mg/dL (74-106) H 08/13/23 05:08 Dosing Weight Weight used for dosin kg Estimated Creatinine Clearance Estimated Creatinine Clearance: 63 Goal Trough Goal Trough: 15-20 mcg/mL Pharmacy Plan for Drug Dosing Pharmacy Plan for Drug Dosing: Continue 1250mg of Vancomycin until trough drawn, then re evaluate Pharmacy Service will continue to monitor and adjust dosing as required. Follow-Up Labs Follow-Up Labs: Trough: Vancomycin Date/Time Labs Ordered Labs to be done on [date and time ordered]: 08/13/22 @ 0030
--- NOTE | 2023-08-13 13:35 | CASEMGMT ---
Addendum entered by Genny Vargas 08/13/23 14:13: SUSU BILLY provided pt with verbal list of local DME providers for FWW, pt chose [facility] as provider of choice. Original Note: SUSU BILLY Assessment: Face to Face with pt for initial transition planning/care coordination assessment. SSUU BILLY introduced self and role at [facility], pt voices understanding and consents to assessment. Pt lying in bed in no distress. Pt is A&O x4 and answers all questions appropriately at this time. Care providers, pharmacy, and demographics verified/updated. Admitting Dx: Cellulitis, generalized weakness PCP: Cynthia Specialists: Emiliana, Adjunct Professor Of Law Preferred Pharmacy: [facility] Insurance: [employer] Medicare Prescription Benefit: yes LNOK: Renetta - daughter, Liyah - sister Living Arrangements: Pt lives alone in a 1 story building with no stairs to enter. Pt states I with ADLs and IADLs. Stated she would like to get a FWW to assist with ambulation. Transportation: Pt drives self and denies concerns with transportation. DME: cane, rollator, shower bench, non skid mat, glucometer, strips. HHC/SNF: Denies Hx of. Pt states no concerns with going home at time of dc. Pt states she currently uses a rollator a friend gave her but finds it difficult to use and the rollator often gets away from her. Pt reported she has an open wound on R leg, states she is able to wrap it herself upon DC if needed. CM to follow. Advised pt to ask CM if any further question/concerns/needs arise, voices understanding. Pt Goal: Home Plan: Home with DME, follow therapy and wound recommendations. Marcus CRISTOBAL CM
[2023-08-13 14:00] VITALS: BP 129/76; PULSE 56; RESP 14; TEMP 36.2; O2SAT 97
--- NOTE | 2023-08-13 14:44 | PCM.CONS.GEN ---
Assessment & Plan Assessment/Plan (1) Cellulitis of right leg: PLAN: Non purulent cellulitis. Will narrow to cefazolin. Plan on short course po abx at discharge. Will follow, thank you. HPI Consult Data Date of Consult: 08/13/23 HPI Narrative Reason for Consultation: cellulitis HPI Narrative: GENIA LIZ, is a 83 F who presented 08/11 with several weeks of R lower leg redness, swelling, pain after hitting it on corner of a car door. No fever. No recent abx. Came to ED, admitted, now on vanc/cefepime. Feeling better. Full ROS performed and neg except as noted above. [facility] Medical History Acute kidney injury Aortic stenosis Atrial fibrillation Chronic venous insufficiency Diabetes mellitus Diabetic neuropathy Diaphragmatic hernia Dyslipidemia Edema of left lower extremity Edema of left lower extremity due to peripheral venous insufficiency Edema of right lower extremity Edema of right lower extremity due to peripheral venous insufficiency Esophageal spasm Esophageal stricture Gastroenteritis GERD (gastroesophageal reflux disease) Hearing deficit Hiatal hernia History of basal cell cancer History of esophageal dilatation HTN (hypertension) Hyperlipidemia Hypokalemia Metabolic acidosis Obesity (BMI 35.0-39.9 without comorbidity) Osteoporosis Overactive bladder Swelling of left lower extremity Swelling of right lower extremity Thrombocytopenia Tinnitus Venous stasis dermatitis Home Medications glimepiride 4 mg tablet 4 mg PO BID DIABETES 07/05/17 [History Last Taken 07/29/23 22:00 4 mg] metformin 500 mg tablet 500 mg PO UD diabetes 07/05/17 [History Last Taken 07/29/23] furosemide 80 mg tablet 80 mg PO DAILY PRN edema 02/01/18 [History Last Taken Unknown] acetaminophen 500 mg tablet (Tylenol Extra Strength) 1,000 mg PO PRN PRN Pain 04/01/18 [History Last Taken 03/31/18] hydrochlorothiazide 25 mg tablet 25 mg PO DAILY diuretic 04/01/18 [History Last Taken 07/29/23 05:00] ibuprofen 200 mg tablet 200 mg PO PRN PRN Pain 04/01/18 [History Last Taken 04/01/18] metoprolol succinate 25 mg tablet,extended release 24 hr (Toprol XL) 25 mg PO DAILY blood pressure 04/01/18 [History Last Taken 07/29/23] cholecalciferol (vitamin D3) 50 mcg (2,000 unit) capsule 4,000 unit PO DAILY supplement 01/11/20 [History Last Taken 08/12/23 10:00 4,000 unit] amlodipine 2.5 mg tablet (Norvasc) 2.5 mg PO DAILY blood pressure 10/10/22 [History Last Taken 08/12/23 17:09 2.5 mg] aspirin 81 mg chewable tablet (Jalen Chewable Low Dose Aspirin) 1 tab PO DAILY blood thinner 10/10/22 [History Last Taken Unknown] carvedilol 3.125 mg tablet (Coreg) 3.125 mg PO BID BP 10/10/22 [History Last Taken 08/12/23 10:00 3.125 mg] nitroglycerin 0.4 mg sublingual tablet (Nitrostat) 0.4 mg sublingual Q5M 10/10/22 [History Last Taken Unknown] sitagliptin phosphate 100 mg tablet (Januvia) 100 mg PO DAILY blood sugar 10/10/22 [History Last Taken 07/29/23] cephalexin 500 mg capsule 500 mg PO Q6 #40 CAPSULES 12/07/22 [Rx Last Taken Unknown] Allergy/AdvReac Type Severity Reaction Status Date / Time acetaminophen [From Vicodin] Allergy Other Verified 08/12/23 11:59 celecoxib [From Celebrex] Allergy Unknown Verified 08/12/23 11:59 codeine Allergy Unknown Verified 08/12/23 11:59 hydrocodone [From Vicodin] Allergy Other Verified 08/12/23 11:59 morphine Allergy Other Verified 08/12/23 11:59 niacin Allergy Unknown Verified 08/12/23 11:59 Penicillins Allergy Unknown Verified 08/12/23 11:59 prednisone Allergy Unknown Verified 08/12/23 11:59 Sulfa (Sulfonamide Allergy Unknown Verified 08/12/23 11:59 Antibiotics) Family History Mother Asthma Father Heart disease Hypertension Arthritis Surgical History History of cholecystectomy History of laparoscopic cholecystectomy History of nasal surgery History of surgery on left wrist History of tonsillectomy history ORIF left wrist History repair broken nose Social History Smoking Status: Never smoker alcohol intake: never substance use type: does not use Physical Exam Const alert and no apparent distress General Appearance: cooperative HEENT normocephalic and head/scalp atraumatic Eyes PERRL and EOMs intact bilaterally Neck supple and No nodes Resp normal air movement and clear to auscultation bilaterally Cardio regular rate and regular rhythm GI soft to palpation, non-tender and non-distended Extremity General Extremity: edema Skin Skin Narrative: reviewed photos BLE Neuro CN's II-XII intact bilaterally Lab / Micro Data Attestation: I reviewed the patient's lab results. 08/13/23 05:08 08/13/23 05:08 Labs: Laboratory Results - last 24 hr 08/12/23 13:01: Hemoglobin A1c 12.3 H 08/12/23 17:44: POC Glucose 333 H 08/12/23 23:33: POC Glucose 284 H 08/13/23 05:08: WBC 5.6, RBC 4.26, Hgb 13.7, Hct 40.8, MCV 95.8, MCH 32.2 H, MCHC 33.6, RDW Std Deviation 47.2 H, RDW Coeff of Eduardo 13.2, Plt Count 185, MPV 11.3, Sodium 137, Potassium 3.5, Chloride 103, Carbon Dioxide 27.0, Anion Gap 7, BUN 18, Creatinine 0.64, Estim Creat Clear Calc 62.88, Est GFR (MDRD) Af Amer 115, Est GFR (MDRD) Non-Af 95, BUN/Creatinine Ratio 28.2 H, Glucose 271 H, Calcium 9.5 08/13/23 07:00: POC Glucose 250 H 08/13/23 11:36: POC Glucose 397 H
--- NOTE | 2023-08-13 16:02 | CHAPLAIN ---
Type of Pastoral Visit ___ Initial Visit ___ Follow-up Visit ___ On-call Visit ___ General Patient Visit ___ Spiritual Assessment ___ Family Conference ___ Bereavement ___ Rapid Response ___ Code Blue ___ Other (describe below) Pastoral Care Referral From ___ Patient ___ Family ___ Nurse ___ Physician ___ Liquor Clerk ___ Division Plant Engineer ___ Other (describe below) Sacrament/Intervention ___ Active listening ___ Anointing ___ Voodoo ___ Bereavement ___ Communion ___ Lilliam exploration ___ ___ Life review ___ Prayer ___ Reconciliation ___ Sacrament of Sick ___ Supportive presence ___ Wedding ___ Other (describe below) Pastoral Comments patient is sleeping and did not awaken to her name; a calling card was left in room
[2023-08-13 17:29] LABS: Bedside Glucose 325 mg/dL (74-106)
[2023-08-13 19:55] VITALS: O2SAT 95
[2023-08-13 20:30] VITALS: BP 163/79; PULSE 75; RESP 16; TEMP 36.6; O2SAT 99
[2023-08-13] MEDS: Cefazolin 2 GM in 0.9% Normal Saline (100mL Bag) 100 ML IV (21:40)
[2023-08-13 22:01] LABS: Bedside Glucose 315 mg/dL (74-106)
[2023-08-14] MEDS: Nystatin Powder 15gm Bottle 1 APPLIC TOPICAL ×2 (00:25→09:40)
[2023-08-14] MEDS: Menthol/Lanolin/Calamine/Znox 113 GM Tube 1 APPLIC TOPICAL ×2 (00:26→09:39)
[2023-08-14 03:13] VITALS: BP 130/71; PULSE 97; RESP 18; TEMP 36.4; O2SAT 94
[2023-08-14] MEDS: Cefazolin 2 GM in 0.9% Normal Saline (100mL Bag) 100 ML IV (06:56)
[2023-08-14] MEDS: Insulin Lispro 100 UNIT/ML INSULN.PEN SC ×2 (07:04→12:01)
[2023-08-14 07:27] VITALS: O2SAT 93
[2023-08-14 07:38] LABS: Bedside Glucose 288 mg/dL (74-106)
[2023-08-14 09:13] VITALS: BP 137/70; PULSE 68; RESP 13; TEMP 36.5; O2SAT 97
[2023-08-14] MEDS: hydroCHLOROthiazide 25 MG Tablet PO (09:38)
[2023-08-14] MEDS: Aspirin 81 MG TAB.CHEW PO (09:39)
[2023-08-14] MEDS: Enoxaparin 40 MG/0.4 ML Syringe SC (09:39)
[2023-08-14] MEDS: Cholecalciferol (VIT D3) 25 MCG TABLET (1,000 UNITS) 50 MCG PO (09:39)
[2023-08-14] MEDS: Carvedilol 3.125 MG TABLET PO (09:39)
[2023-08-14] MEDS: amLODIPine 2.5 MG Tablet PO (09:39)
--- NOTE | 2023-08-14 10:29 | PCM.PN.ID ---
Physical Exam Narrative Feeling better, leg less sore/red/swollen, no fever Const alert and no apparent distress Resp normal air movement and clear to auscultation bilaterally Cardio regular rate and regular rhythm GI soft to palpation, non-tender and non-distended Extremity General Extremity: edema Skin Skin Narrative: BLE wrapped ID ID: Route of nutrition/ use of supplements: [] Nutritional Intake: [] IV Site: [] Harris Catheter: [] Assessment & Plan Assessment/Plan (1) Cellulitis of right leg: PLAN: Non purulent cellulitis. Cont cefazolin. Improved. Plan on po keflex 500mg tid for 6 more days at discharge. Will follow
--- NOTE | 2023-08-14 11:33 | CASEMGMT ---
Addendum entered by Amina Kyle 08/14/23 15:29: Consignment form uploaded to [employer] and sent to [facility]. Addendum entered by Amina Kyle 08/14/23 14:31: [id number] provided pt with a FWW and pt signed consignment form. Pt denies any homegoing needs and feels safe to go home. Original Note: Referral for FWW sent to [facility] via [facility] at this time.
[2023-08-14 12:34] LABS: Bedside Glucose 364 mg/dL (74-106)
--- NOTE | 2023-08-14 12:59 | DCINST_ITS ---
Discharge Instructions Diet Discharge Diet: Low fat / Low cholesterol, 1800 Calorie Control Diet and 2000 mg Sodium Diet Activity Discharge Activity: Return to Normal Activity Weight Bearing Status: Weight bearing as tolerated Dressing / Incision Call your doctor if you observe: Fever of 101 or Higher, Coldness, Increased Pain, Numbness or Tingling, Change in Color, Inability to urinate, Inability to have a bowel movement, Using more than 1 pad per hour, Shortness of breath, Dizziness, Fainting spells, Swelling in the ankles, Chest pain, Prolonged hiccupping, Increased palpitations (irregular heartbeat) and Calf discomfort Follow Up Care When: IN 2 WEEKS Test Results: Test results from this visit will be discussed in further detail at your follow- up appointment, if applicable. Discharge Plan Admission Admit Date/Time: 08/12/23 15:24 Primary Reason for Your Visit: Right leg cellulitis Attending Provider: Delfino Laird Primary Care Provider: Arturo Marie Consulting Providers: Guru Bautista; Marcus Guerra Instructions Additional Instructions / Restrictions: Follow-up wound center every week. Discharge Orders/Prescriptions Prescriptions: Continued metformin 500 mg tablet 500 mg PO UD Patient Comments: diabetes Rx Instructions: 2 TABS AT BREAKFAST; 1 TAB AT LUNCH; AND 2 TABS AT DINNER. glimepiride 4 mg tablet 4 mg PO BID Patient Comments: blood sugar ibuprofen 200 MG tablet 200 mg PO PRN PRN (Reason: Pain) hydrochlorothiazide 25 MG tablet 25 mg PO DAILY Patient Comments: blood pressure/diuretic cholecalciferol (vitamin D3) 2,000 UNIT capsule 4,000 unit PO DAILY cephalexin 500 mg capsule 500 mg PO Q6 Qty: 40 0RF aspirin [Jalen Chewable Aspirin] 81 mg tablet,chewable 1 tab PO DAILY nitroglycerin [Nitrostat] 0.4 mg tablet, sublingual 0.4 mg sublingual Q5M Rx Instructions: do not exceed 3 doses per episode amlodipine [Norvasc] 2.5 mg tablet 2.5 mg PO DAILY carvedilol [Coreg] 3.125 mg tablet 3.125 mg PO BID Rx Instructions: must administer with a meal/food Januvia 100 mg tablet 100 mg PO DAILY Changed acetaminophen [Tylenol Extra Strength] 500 MG tablet 1,000 mg PO TID 7 Days Qty: 0 0RF furosemide 80 MG tablet 40 mg PO DAILY PRN (Reason: edema) 30 Days Qty: 0 0RF Discontinued metoprolol succinate [Toprol XL] 25 MG tablet extended release 24 hr 25 mg PO DAILY Referrals / Follow Up: Arturo Marie MD [Primary Care Provider] - Within 2 Weeks Marucs Guerra MD [Med Staff - Active Staff] - Within 1 Month (As needed for recurrent cellulitis.) Disposition Disposition (needs filled in before D/C Order can be placed): Home, Self Care
--- NOTE | 2023-08-14 13:06 | PCM.DC.SUM ---
Providers Date of Admission: 08/12/23 Date of Discharge: 08/14/23 Primary Care Physician: Dr. Arturo Marie MD Consultations 08/12/23 17:01 Consult: Onc/Wound/monitor car operator Routine Comment: Reason for Consult:: recurrent LE cellulitis, chronic LE lymphedema 08/13/23 12:59 Consult: Infectious Disease Routine Consulting Provider: Marcus Guerra Reason for Consult: Recurrent right lower extremity cellulitis EMERGENT Consult: No MD Notified: Yes Date Notified: 08/13/23 Time Notified: 12:59 Method of Notification: Text Reason For Visit: CELLULITIS, GENERALIZED WEAKNESS Diagnosis Discharge Diagnosis (1) Cellulitis of right leg: Status: Acute Code(s): L03.115 - Cellulitis of right lower limb Plan Patient is an 83-year-old female who presented [facility] ED on 08/12/2023 with worsening right lower leg pain and swelling and difficulty with ambulation. 1. Right lower extremity cellulitis, chronic lower extremity venous stasis dermatitis ? Admit under inpatient status to PCU. Wound care consulted. Notably had vascular studies done in September of last year given her chronic lower extremity venous stasis dermatitis and these showed no significant peripheral artery disease. Patient was started on vancomycin and cefepime for now given concern for polymicrobial diabetic foot infection. Blood cultures ordered. Monitor closely. 08/12: With history of recurrent cellulitis and ongoing history for more than 6 months, ID was consulted. Nonpurulent cellulitis. Antibiotic narrowed down to IV cefazolin. Anticipate short course of p.o. antibiotic at time of discharge. 08/13: Patient was evaluated by ID. Recommended 6 more days of p.o. Keflex 500 mg every 6 hourly. Prescription given. 2. Mild acute debility ? PT/OT/case management consulted. Lives at home alone, generally has good functional status, has been limited because of right lower extremity cellulitis. 3. Depressive state, medication nonadherence ? Reports acute depressive state over the past few months due to significant family issues. Nonadherent to home medications for 3 to 4 weeks. She had good insight and was aware that not taking her home medications likely contributed to her current presentation, and she is agreeable to resuming her home medications at discharge. Recommend outpatient follow-up with PCP and outpatient referral to counseling. 4. Poorly controlled type 2 diabetes mellitus ? Home regimen of metformin 500 mg daily, Sitagliptin 100 mg daily, glimepiride 4 mg twice daily. Nonadherent to regimen recently as noted above. Blood glucose 440 on admit. A1c 12.4%. Will start Lantus 15 units at night with sliding scale insulin with meals while here. Will need to discuss with patient on best home-going regimen on discharge. 08/13: Patient on glimepiride 4 mg twice daily. On metformin. Follow with PCP for optimal control of glucose. 5. Essential hypertension ? Home regimen of amlodipine 2.5 mg daily, Coreg 3.125 mg twice daily, hydrochlorothiazide 25 mg daily, Lasix 80 mg daily as needed. Recent nonadherence as noted above. Will resume home regimen but hold Lasix as patient was mildly hypokalemic on admit. Labetalol as needed for SBP > 180. Titrate home regimen as needed. 08/13: Lasix 80 mg daily. Decreased to 40 mg as needed. Patient already on HCTZ. Metoprolol succinate discontinued as it was duplicate with carvedilol. Chronic medical conditions: ? Obesity: BMI 33 on admit. Complicates hospital course, care and prognosis. ? Frequent PACs: EKG on admit showed normal sinus rhythm with frequent PACs. On review of prior EKGs for the past several years, has had frequent PACs noted before. Last echo in 02/2020 showed EF 65%, mild enlarged LA, RVSP mildly elevated at 32 mmHg. Continue home Coreg. ? Mild aortic stenosis: Noted on echo in 02/2020. Outpatient follow-up as needed. DVT prophylaxis: Lovenox CODE STATUS: Full code, verified Discharge medication reconciliation done. Discharge follow-up instructions completed. Discharge process discussed with the patient and all questions were answered to patient's satisfaction. Follow with PCP in 1 to 2 weeks Total time spent, exact 35 minutes on discharge meds reconciliation, examination, coordination of care with nurses and ancillary staff, review of imaging and blood test and discussion with the patient on follow-up instructions. Medications at Discharge Home Medications glimepiride 4 mg tablet 4 mg PO BID DIABETES 07/05/17 metformin 500 mg tablet 500 mg PO UD diabetes 07/05/17 hydrochlorothiazide 25 mg tablet 25 mg PO DAILY diuretic 04/01/18 ibuprofen 200 mg tablet 200 mg PO PRN PRN Pain 04/01/18 cholecalciferol (vitamin D3) 50 mcg (2,000 unit) capsule 4,000 unit PO DAILY supplement 01/11/20 amlodipine 2.5 mg tablet (Norvasc) 2.5 mg PO DAILY blood pressure 10/10/22 aspirin 81 mg chewable tablet (Jalen Chewable Low Dose Aspirin) 1 tab PO DAILY blood thinner 10/10/22 carvedilol 3.125 mg tablet (Coreg) 3.125 mg PO BID BP 10/10/22 nitroglycerin 0.4 mg sublingual tablet (Nitrostat) 0.4 mg sublingual Q5M 10/10/22 sitagliptin phosphate 100 mg tablet (Januvia) 100 mg PO DAILY blood sugar 10/10/22 cephalexin 500 mg capsule 500 mg PO Q6 #40 CAPSULES 12/07/22 acetaminophen 500 mg tablet (Tylenol Extra Strength) 1,000 mg (2 x 500 mg) PO TID 7 days #0 tabs 08/14/23 furosemide 80 mg tablet 40 mg (1/2 x 80 mg) PO DAILY PRN edema 30 days #0 tabs 08/14/23 Physical Exam Narrative Seen and examined. Right leg erythema and edema has improved. It Adaptic to RLE and covered with a dry dressing. Wrapped with Kerlix. Patient has history of recurrent right cellulitis for more than 6 months. Physical exam General: Alert, Oriented x3, Cooperative HEENT: Atraumatic, PERRLA, EOMI, Normocephalic Oral: No Gingival or Mucosal Lesions/ Ulcerations Neck: Supple, No JVD, Negative Carotid Bruits Chest wall/Lungs: Air entry diminished in bilateral lung bases. No crepitation/rhonchi Cardiovascular: Regular rate, Regular Rhythm, Normal S1, Normal S2, No M/G/R Abdomen: Bowel Sounds Present, Soft, Non Tender, Non-Distended : No dysuria. No renal angle tenderness. No suprapubic tenderness. Extremities: No edema, Capillary Refill Less than 3 Seconds Skin: Right lower leg erythema, induration and edema has improved. Dressing done. Mild seepage from right lateral aspect of leg. Chronic bilateral venous stasis. No open ulcer. Musculoskeletal: No Tenderness to Palpation of Joints or Extremities Neurological: Cranial nerves II-XII grossly intact, DTR 2+/4. No acute focal neurological deficit. Psych/Mental Status: Normal Affect, Appropriate. Weight / BMI Weight Weight: 201 lb 15.095 oz Body Mass Index (BMI) 32.4 ABG / Lab / Microbiology Data 08/13/23 05:08 08/13/23 05:08 Laboratory: Laboratory Results - last 24 hr 08/13/23 16:41: POC Glucose 325 H 08/13/23 21:38: POC Glucose 315 H 08/14/23 07:03: POC Glucose 288 H 08/14/23 11:59: POC Glucose 364 H D/C Instructions Discharge Diet: Low fat / Low cholesterol, 1800 Calorie Control Diet and 2000 mg Sodium Diet Weight Bearing Status: Weight bearing as tolerated Call your doctor if you observe: Fever of 101 or Higher, Coldness, Increased Pain, Numbness or Tingling, Change in Color, Inability to urinate, Inability to have a bowel movement, Using more than 1 pad per hour, Shortness of breath, Dizziness, Fainting spells, Swelling in the ankles, Chest pain, Prolonged hiccupping, Increased palpitations (irregular heartbeat) and Calf discomfort When: IN 2 WEEKS Meaningful Use Info Meaningful Use Meaningful Use Diagnoses (Choose all that apply): None applicable Ischemic Stroke Statin Dosing Therapy Reference: STATIN DOSE THERAPY REFERENCE: * Patients > 75 years receive moderate or high dose statin therapy. * Patients 75 years or YOUNGER should receive HIGH intensity statin dose unless contraindicated. You will be required to document reason for non-treatment if statin daily dose does not meet guidelines. HIGH DOSE STATIN THERAPY DAILY Atorvastatin > than or = to 40 mg Rosuvastatin > than or = to 20 mg Amlodipine + Atorvastatin > than or = to 2.5/40 mg Ezetimibe + Simvastatin 10/80 mg Simvastatin 80mg Discharge Plan Admission Admit Date/Time: 08/12/23 15:24 Primary Reason for Your Visit: Right leg cellulitis Attending Provider: Delfino Laird Primary Care Provider: Arturo Marie Consulting Providers: Guru Bautista; Marcus Guerra Instructions Additional Instructions / Restrictions: Follow-up wound center every week. Discharge Orders/Prescriptions Prescriptions: Continued metformin 500 mg tablet 500 mg PO UD Patient Comments: diabetes Rx Instructions: 2 TABS AT BREAKFAST; 1 TAB AT LUNCH; AND 2 TABS AT DINNER. glimepiride 4 mg tablet 4 mg PO BID Patient Comments: blood sugar ibuprofen 200 MG tablet 200 mg PO PRN PRN (Reason: Pain) hydrochlorothiazide 25 MG tablet 25 mg PO DAILY Patient Comments: blood pressure/diuretic cholecalciferol (vitamin D3) 2,000 UNIT capsule 4,000 unit PO DAILY cephalexin 500 mg capsule 500 mg PO Q6 Qty: 40 0RF aspirin [Jalen Chewable Aspirin] 81 mg tablet,chewable 1 tab PO DAILY nitroglycerin [Nitrostat] 0.4 mg tablet, sublingual 0.4 mg sublingual Q5M Rx Instructions: do not exceed 3 doses per episode amlodipine [Norvasc] 2.5 mg tablet 2.5 mg PO DAILY carvedilol [Coreg] 3.125 mg tablet 3.125 mg PO BID Rx Instructions: must administer with a meal/food Januvia 100 mg tablet 100 mg PO DAILY Changed acetaminophen [Tylenol Extra Strength] 500 MG tablet 1,000 mg PO TID 7 Days Qty: 0 0RF furosemide 80 MG tablet 40 mg PO DAILY PRN (Reason: edema) 30 Days Qty: 0 0RF Discontinued metoprolol succinate [Toprol XL] 25 MG tablet extended release 24 hr 25 mg PO DAILY Referrals / Follow Up: Arturo Marie MD [Primary Care Provider] - Within 2 Weeks Marcus Guerra MD [Med Staff - Active Staff] - Within 1 Month (As needed for recurrent cellulitis.) Disposition Disposition (needs filled in before D/C Order can be placed): Home, Self Care Charges/Coding Visit Charges Inpatient E&M: 86803 Disch Hosp >30min
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
== END 2023-08-14 16:41 | disposition home or self-care (01) | DRG 603 ==
LOC: ED 15:44 → MS3 15:56
PROVIDERS: Admitting Provider Hospitalist; Emergency Provider Emergency Medicine; PCP Family Medicine; Visit Provider Internal Medicine
DX: L03.115 Cellulitis of right lower limb (principal); E11.59 Type 2 diabetes mellitus with other circulatory complications; E11.40 Type 2 diabetes mellitus with diabetic neuropathy, unspecified; E11.65 Type 2 diabetes mellitus with hyperglycemia; I87.2 Venous insufficiency (chronic) (peripheral); I15.9 Secondary hypertension, unspecified; F32.9 Major depressive disorder, single episode, unspecified; E78.5 Hyperlipidemia, unspecified; E87.6 Hypokalemia; E66.9 Obesity, unspecified; R53.81 Other malaise; Z91.148 Patient's other noncompliance with medication regimen for other reason; Z68.33 Body mass index [BMI] 33.0-33.9, adult; Z79.84 Long term (current) use of oral hypoglycemic drugs; Z79.82 Long term (current) use of aspirin; Z79.899 Other long term (current) drug therapy; K21.9 Gastro-esophageal reflux disease without esophagitis
CPT/HCPCS: 36415; 80048; 80053; 82009; 82803; 82962; 83036; 83605; 85025; 85027; 93005; 94668; 96365; 96366; 96367; 96372; 97162; 97166; 97535; 99221; 99285; J7040; J7050; A4216; G0378

== ENCOUNTER 2024-01-15 18:59 | Emergency (ER) | payer MEDICARE, SELFPAY ==
[2024-01-15 19:01] VITALS: BP 176/133; PULSE 79; RESP 16; TEMP 36.7; O2SAT 97; BMI 38.2
[2024-01-15 20:00] VITALS: BP 162/67; PULSE 75; RESP 15; O2SAT 94
--- NOTE | 2024-01-15 20:12 | RAD_ITS ---
INDICATION: chest pain EXAMINATION/TECHNIQUE: X-RAY - portable upright AP chest x-ray COMPARISON: 10/27/2021 FINDINGS: LINES/DEVICES: None. LUNGS: No consolidation, edema or effusion. No pneumothorax. MEDIASTINUM AND CARDIOVASCULAR STRUCTURES: [Cardiac silhouette stable within upper normal limits. BONES AND SOFT TISSUES: No acute changes. RAD/Chest 1 View (Portable) IMPRESSION: No radiographic evidence of acute cardiopulmonary disease. Electronically Signed: Carl Womack MD at 21:17 EDT ,
--- NOTE | 2024-01-15 20:12 | EKG12_ITS ---
Test Reason : CP Blood Pressure : / mmHG Vent. Rate : 080 BPM Atrial Rate : 080 BPM P-R Int : 170 ms QRS Dur : 086 ms QT Int : 384 ms P-R-T Axes : 057 012 039 degrees QTc Int : 442 ms Normal sinus rhythm Normal ECG Confirmed by Praveen Sepulveda ([id number]), senior editor SUSIE LANCE ([id number]) on 01/16/2024 9:34:30 AM Referred By: RU Confirmed By:Praveen Sepulveda
--- NOTE | 2024-01-15 20:12 | ED.VIS.CHEST ---
HPI History of Present Illness Chief Complaint: Chest Pain Detail of Chief Complaint: Chest pain Informant: patient Narrative Narrative: Patient presents the emergency department complaint of chest pain that started this morning around 7:30 AM. She was at rest when she started getting discomfort in her left shoulder and underneath her left arm and over to her left chest initially was sharp and stabbing and at times a burning sensation. Patient states the pain then seemed to ease and since then has had intermittent pressure in the left side of her chest. She also states that she was burping a lot. She currently has no discomfort. Patient tells me that she had a stress test 2 years ago that she could not finish walking and then she had a heart catheterization but did not show any blockages. Patient is not had any recent travel or surgery. She does have history of diabetes, hypertension, and high cholesterol. [facility] Medical History Acute kidney injury Aortic stenosis Atrial fibrillation Chronic venous insufficiency Diabetes mellitus Diabetic neuropathy Diaphragmatic hernia Dyslipidemia Edema of left lower extremity Edema of left lower extremity due to peripheral venous insufficiency Edema of right lower extremity Edema of right lower extremity due to peripheral venous insufficiency Esophageal spasm Esophageal stricture Gastroenteritis GERD (gastroesophageal reflux disease) Hearing deficit Hiatal hernia History of basal cell cancer History of esophageal dilatation HTN (hypertension) Hyperlipidemia Hypokalemia Metabolic acidosis Obesity (BMI 35.0-39.9 without comorbidity) Osteoporosis Overactive bladder Swelling of left lower extremity Swelling of right lower extremity Thrombocytopenia Tinnitus Venous stasis dermatitis Home Medications ?Medication ?Instructions ?Recorded ?Last Taken ?Type glimepiride 4 mg tablet 4 mg PO BID DIABETES 07/05/17 07/29/23 22:00 History 4 mg metformin 500 mg tablet 500 mg PO UD diabetes 07/05/17 07/29/23 History hydrochlorothiazide 25 mg tablet 25 mg PO DAILY diuretic 04/01/18 07/29/23 05:00 History ibuprofen 200 mg tablet 200 mg PO PRN PRN Pain 04/01/18 04/01/18 History cholecalciferol (vitamin D3) 50 4,000 unit PO DAILY supplement 01/11/20 08/12/23 10:00 History mcg (2,000 unit) capsule 4,000 unit amlodipine 2.5 mg tablet (Norvasc) 2.5 mg PO DAILY blood pressure 10/10/22 08/12/23 17:09 History 2.5 mg aspirin 81 mg chewable tablet 1 tab PO DAILY blood thinner 10/10/22 Unknown History (Jalen Chewable Low Dose Aspirin) carvedilol 3.125 mg tablet (Coreg) 3.125 mg PO BID BP 10/10/22 08/12/23 10:00 History 3.125 mg nitroglycerin 0.4 mg sublingual 0.4 mg sublingual Q5M 10/10/22 Unknown History tablet (Nitrostat) sitagliptin phosphate 100 mg 100 mg PO DAILY blood sugar 10/10/22 07/29/23 History tablet (Januvia) cephalexin 500 mg capsule 500 mg PO Q6 #40 CAPSULES 12/07/22 Unknown Rx acetaminophen 500 mg tablet 1,000 mg (2 x 500 mg) PO TID 7 08/14/23 03/31/18 Rx (Tylenol Extra Strength) days #0 tabs furosemide 80 mg tablet 40 mg (1/2 x 80 mg) PO DAILY PRN 08/14/23 Unknown Rx edema 30 days #0 tabs Allergy/AdvReac Type Severity Reaction Status Date / Time acetaminophen (From Vicodin) Allergy Other Verified 01/15/24 19:04 celecoxib (From Celebrex) Allergy Unknown Verified 01/15/24 19:04 codeine Allergy Unknown Verified 01/15/24 19:04 hydrocodone (From Vicodin) Allergy Other Verified 01/15/24 19:04 morphine Allergy Other Verified 01/15/24 19:04 niacin Allergy Unknown Verified 01/15/24 19:04 Penicillins Allergy Unknown Verified 01/15/24 19:04 prednisone Allergy Unknown Verified 01/15/24 19:04 Sulfa (Sulfonamide Allergy Unknown Verified 01/15/24 19:04 Antibiotics) Family History Mother Asthma Father Heart disease Hypertension Arthritis Surgical History History of cholecystectomy History of laparoscopic cholecystectomy History of nasal surgery History of surgery on left wrist History of tonsillectomy history ORIF left wrist History repair broken nose Social History Smoking Status: Never smoker alcohol intake: never substance use type: does not use ROS ROS ED Review of Systems ROS Unobtainable: other Constitutional Constitutional ED: Reports lethargy; Denies chills, fever(s), sweats or weight loss Eyes Eyes: Denies blurry vision, change in vision or diplopia ENT ENT ED: Denies rhinorrhea or sore throat Cardiovascular Cardiovascular: Reports chest pain; Denies orthopnea or racing heartbeat Respiratory/Chest Respiratory/Chest: Denies cough, dyspnea, dyspnea on exertion, orthopnea or sputum Gastrointestinal Gastrointestinal: Denies abdominal pain, diarrhea, nausea or vomiting Genitourinary Genitourinary ED: Denies dysuria, hematuria or urinary frequency Musculoskeletal Musculoskeletal: Denies arthralgias, back pain, myalgias or neck pain Integumentary Denies abscess, Abrasions or rash Neurologic Neurologic: Denies headache(s) or weakness Psychiatric Psychiatric: Denies anxiety, depression or suicidal thoughts Endocrine Endocrinology: Denies polydipsia, polyphagia or polyuria Hematologic/Lymphatic Hematologic/Lymphatic: Denies easy bleeding, easy bruising or lymphadenopathy Allergic/Immunologic Allergic/Immunologic ED: Denies mouth swelling, tongue swelling or urticaria EXAM Physical Exam Const Vital Signs: 01/15/24 19:01 01/15/24 19:50 01/15/24 20:00 Temperature 98.1 F Temperature Source Temporal Pulse Rate 79 75 Respiratory Rate 16 15 Respiratory Effort Short of Breath Blood Pressure 176/133 H 162/67 H Blood Pressure Mean 147 98 Pulse Ox 97 94 Oxygen Delivery Method Room Air Room Air 01/15/24 20:25 01/15/24 21:00 Temperature Temperature Source Pulse Rate 71 Respiratory Rate 12 Respiratory Effort Blood Pressure 165/70 H Blood Pressure Mean 101 Pulse Ox 93 Oxygen Delivery Method Room Air Room Air Positive well nourished and well developed General Appearance ED: well developed and NAD HEENT Reports TM's clear and moist mucous membranes normocephalic and atraumatic; Negative for trauma or tenderness Tympanic Membrane ED: Yes TM's clear Eyes PERRL and EOMs intact bilaterally General Eye ED: Negative for pale conjunctiva or scleral icterus Neck no lymphadenopathy, supple and no JVD General: Negative for tenderness Chest Wall inspection of chest normal and palpation of chest normal Chest: Negative for tenderness Resp normal respiratory effort and clear to auscultation bilaterally Effort and Inspection: Negative for respiratory distress or pain with movement Auscultation: Negative for rhonchi, wheezes or diminished lung sounds Cardio regular rate, regular rhythm, S1 normal heart sound, S2 normal heart sound and no murmurs Peripheral Pulses: pulses 2+ throughout GI normal to inspection, nondistended, normoactive bowel sounds, soft to palpation, non-tender, non-distended and no masses Back/Spine no CVA tenderness and no thoracic nor lumbar tenderness Extremity normal to inspection General Extremety ED: Negative for edema General Extremity: Negative for edema Neuro oriented x3, CN's II-XII intact bilaterally, no sensory deficits noted and gait normal Sensorium / Orientation: awake, alert, oriented to person, oriented to place and oriented to time Motor Exam: strength 5/5 throughout and strength abnormal Psych mental status grossly normal Skin no rashes or lesions noted and no wounds Heart Score History: Slightly/Non-Suspicious ECG: Normal Age: >/= 65 years Risk Factors: >/= 3 Risk Factors or History of CAD Troponin: </= Normal Limit Score: 4 MDM MDM MDM Narrative Medical decision making narrative: Patient presents the emergency department with chest discomfort that initially started this morning at 7:30 in the morning. She has had intermittent discomfort throughout the day. She tells me she had a heart cath 2 years ago that showed no blockages and did not require any type of intervention. CBC with differential white count 6.5 with hemoglobin 14 and platelet count of 160. Chemistries unremarkable. Troponin was normal at 23. D-dimer was elevated 1.1. CTA of the chest was obtained which was negative for PE or dissection. At this point patient asymptomatic. Will discharge to home. Low suspicion for acute coronary syndrome given unremarkable heart cath 2 years ago from what the patient tells me and atypical description of chest pain with normal troponin after more than 12 hours of intermittent discomfort. Patient advised to return if worsening pain, increasing shortness of breath, exertional dyspnea, or condition should worsen anyway. Lab Data Attestation: I reviewed the patient's lab results. Labs: Laboratory Results - last 24 hr 01/15/24 19:47 WBC 6.5 RBC 4.45 Hgb 14.1 Hct 42.6 MCV 95.7 MCH 31.7 MCHC 33.1 RDW Std Deviation 47.3 H RDW Coeff of Eduardo 13.4 Plt Count 160 MPV 11.1 Immature Gran % (Auto) 0.200 Neut % (Auto) 60.8 Lymph % (Auto) 25.4 [place] % (Auto) 8.9 Eos % (Auto) 3.5 Baso % (Auto) 1.2 H Absolute Neuts (auto) 4.0 Absolute Lymphs (auto) 1.66 Nucleated RBC % 0 D-Dimer Quant (PE/DVT) 1.10 H* Sodium 140 Potassium 4.0 Chloride 106 Carbon Dioxide 29.0 Anion Gap 6 BUN 19 H Creatinine 0.80 Estim Creat Clear Calc 68.42 Est GFR (MDRD) Af Amer 89 Est GFR (MDRD) Non-Af 73 BUN/Creatinine Ratio 23.8 H Glucose 186 H Calcium 9.8 Troponin I High Sens 23 Radiography Diagnostic Testing: Clinical Impression(s) from Imaging Studies Chest X-Ray 01/15/24 20:12 IMPRESSION: No radiographic evidence of acute cardiopulmonary disease. Electronically Signed: Carl Womack MD at 21:17 EDT , Chest CTA 01/15/24 20:53 IMPRESSION: Normal CTA chest examination, without a demonstrated pulmonary embolism or arterial dissection.. Electronically Signed: Carl Womack MD at 21:49 EDT , 1 view chest x-ray interpreted by myself as no evidence of infiltrate or pneumothorax or acute disease process. Radiology in agreement. EKG Initial EKG: Attestation: I personally reviewed and interpreted this EKG as follows: Comments: Sinus rhythm with ventricular rate of 81 bpm with no acute ST segment changes. Discharge Plan Triage Chief Complaint: Chest Pain ED Provider: Evon Wilson Dx/Rx/DC Orders Clinical Impression: Chest pain Instructions: ED Chest Pain, Uncertain Cause Prescriptions: No Action metformin 500 mg tablet 500 mg PO UD Patient Comments: diabetes Rx Instructions: 2 TABS AT BREAKFAST; 1 TAB AT LUNCH; AND 2 TABS AT DINNER. glimepiride 4 mg tablet 4 mg PO BID Patient Comments: blood sugar ibuprofen 200 MG tablet 200 mg PO PRN PRN (Reason: Pain) hydrochlorothiazide 25 MG tablet 25 mg PO DAILY Patient Comments: blood pressure/diuretic cholecalciferol (vitamin D3) 2,000 UNIT capsule 4,000 unit PO DAILY cephalexin 500 mg capsule 500 mg PO Q6 Qty: 40 0RF aspirin [Jalen Chewable Aspirin] 81 mg tablet,chewable 1 tab PO DAILY nitroglycerin [Nitrostat] 0.4 mg tablet, sublingual 0.4 mg sublingual Q5M Rx Instructions: do not exceed 3 doses per episode amlodipine [Norvasc] 2.5 mg tablet 2.5 mg PO DAILY carvedilol [Coreg] 3.125 mg tablet 3.125 mg PO BID Rx Instructions: must administer with a meal/food Januvia 100 mg tablet 100 mg PO DAILY acetaminophen [Tylenol Extra Strength] 500 MG tablet 1,000 mg PO TID 7 Days Qty: 0 0RF furosemide 80 MG tablet 40 mg PO DAILY PRN (Reason: edema) 30 Days Qty: 0 0RF Primary Care Provider: Arturo Marie Referrals: Arturo Marie MD [Primary Care Provider] - 3-5 Days Print Language: French Disposition Disposition: Home, Self Care
[2024-01-15] MEDS: Aspirin 81 MG TAB.CHEW PO (20:26)
[2024-01-15 20:27] LABS: Absolute Lymphocyte Count 1.66 X10^3/uL (0.83-4.51); Basophil# 0.08 X10^3/uL; Basophil% 1.2 % (0-1); Eosinophil# 0.23 X10^3/uL; Eosinophils% 3.5 % (0-5); Hematocrit 42.6 % (37-47); Hemoglobin 14.1 g/dL (12.0-15.0); Lymphocyte # 1.66 X10^3/ul (0.83-4.51); Lymphocyte % 25.4 % (19-41); Mean Corp Hgb Conc 33.1 g/dL (32-36); Mean Corpuscular Hgb 31.7 pg (27.0-32.0); Mean Corpuscular Volume 95.7 fL (81-99); Mean Platelet Vol. 11.1 fl (6.2-12.0); Monocyte# 0.58 X10^3/uL; Monocyte% 8.9 % (0-10); NRBC Flagged by Analyzer 0 % (0-5); Neutrophil # 3.98 X10^3/uL (2.7-7.7); Neutrophil % 60.8 % (47-70); Platelet Count 160 K/mm3 (150-450); RBC Distribution Width CV 13.4 % (11.6-14.6); RBC Distribution Width SD 47.3 fl (35.1-43.9); Red Blood Count 4.45 M/mm3 (4.2-5.4); White Blood Count 6.5 K/mm3 (4.4-11.0)
[2024-01-15 20:45] LABS: Anion Gap 6 (5-15); BUN 19 mg/dL (7-18); BUN/Creat Ratio 23.8 RATIO (10-20); Calcium,Total 9.8 mg/dL (8.5-10.1); Chloride 106 mmol/L (98-107); EST Glomerular Filtration Rate 73 mL/min (>60); Est Glom Filt Rate - Afr Amer 89 mL/min (>60); Estimated Creatinine Clearance 68.42 ml/min; Glucose 186 mg/dL (74-106); Sodium Level 140 mmol/L (136-145); Troponin-I HS (w/2H Reflex) 23 pg/mL (3.0-54.0)
--- NOTE | 2024-01-15 20:53 | CT_ITS ---
STUDY: CTA CHEST REASON FOR EXAM: Female, 83 years old. Chest pain, elevated d-dimer RADIATION DOSAGE (If Supplied By Facility): CTDIvol = ( 12.23 ) mGy, DLP = ( 444.13 ) mGycm TECHNIQUE: The examination was performed with the intravenous administration of 100mL Isovue-370. Post-processing of the angiographic images was performed, with multiplanar reformation and 3D reconstruction. Individualized dose optimization techniques were used for this CT. COMPARISON: None. FINDINGS: Normal enhancement of the main pulmonary artery and right and left pulmonary arteries. Normal enhancement of the bilateral peripheral pulmonary arteries. There is no demonstrated pulmonary embolism. Normal thoracic aorta and visualized great vessels. There is no demonstrated aortic dissection. Normal heart and pericardium. Normal mediastinum. Normal hilar regions. Small hiatal hernia. There are no pulmonary infiltrates. There are no pleural effusions. Normal chest wall structures. No acute or aggressive osseous abnormality. No acute findings in the upper abdomen. CT/CTA Chest W/WO Contrast IMPRESSION: Normal CTA chest examination, without a demonstrated pulmonary embolism or arterial dissection.. Electronically Signed: Carl Womack MD at 21:49 EDT ,
[2024-01-15 21:00] VITALS: BP 165/70; PULSE 71; RESP 12; O2SAT 93
[2024-01-15 21:59] VITALS: BP 183/88; PULSE 76; RESP 15; TEMP 36.9; O2SAT 96
--- NOTE | 2024-01-15 22:02 | ED.RN ---
PT INSTRUCTED TO TAKE HOME BP MEDICATIONS PER DR. BURGER
[2024-01-15 22:23] LABS: Reflex Troponin-HS? (from REC) Y
== END 2024-01-15 22:07 | disposition home or self-care (01) ==
PROVIDERS: Emergency Provider Emergency Medicine; PCP Family Medicine; Visit Provider Emergency Medicine
DX: R07.9 Chest pain, unspecified (principal); E11.40 Type 2 diabetes mellitus with diabetic neuropathy, unspecified; I10 Essential (primary) hypertension; E78.00 Pure hypercholesterolemia, unspecified; K21.9 Gastro-esophageal reflux disease without esophagitis; Z79.82 Long term (current) use of aspirin; Z79.84 Long term (current) use of oral hypoglycemic drugs; Z79.899 Other long term (current) drug therapy
CPT/HCPCS: 71045; 71275; 80048; 84484; 85025; 85379; 93005; 99284; Q9967; A4216

== ENCOUNTER 2024-04-22 21:34 | Emergency (ER) | payer MEDICARE, SELFPAY ==
[2024-04-22 21:35] VITALS: BP 217/100; PULSE 82; RESP 18; TEMP 36.4; O2SAT 97; BMI 36.3
--- NOTE | 2024-04-22 22:08 | CT_ITS ---
EXAM: CT HEAD WITHOUT INTRAVENOUS CONTRAST CLINICAL INDICATION: headache TECHNIQUE: Multiple axial images were obtained of the head without intravenous contrast. This CT exam was performed using one or more of the following dose reduction techniques: automated exposure control, adjustment of the mA and/or kV according to patient size, and/or use of iterative reconstruction technique. RADIATION DOSE: CTDIvol = 44.99 mGy, DLP = 880.47 mGy-cm COMPARISON: 12/07/2022. FINDINGS: BRAIN AND EXTRA-AXIAL SPACES: Mild generalized atrophy. Mild low density bilaterally in the deep white matter. No intra- or extra-axial hemorrhage. No evidence of acute infarct. No intracranial mass or mass effect. There is preservation of the latham/white matter interface. Posterior fossa structures are unremarkable. No hydrocephalus. Basal cisterns are patent. BONES/JOINTS: Unremarkable. No discrete lytic or blastic abnormalities. SINUSES: Unremarkable as visualized. Clear. MASTOID AIR CELLS: Unremarkable. Clear. ORBITS: Visualized globes, extraocular muscles, optic nerves and retrobulbar fat appear unremarkable. CT/Brain/Head without Contrast IMPRESSION: Mild generalized atrophy. Mild low density bilaterally in the deep white matter. This likely represents chronic small vessel ischemic changes in the deep white matter. Electronically Signed: Praveen Webster MD at 22:58 EST ,
[2024-04-22 22:23] LABS: Absolute Lymphocyte Count 1.95 X10^3/uL (0.83-4.51); Absolute Neutrophil Count 2.9 X10^3/uL (2.0-7.7); Basophil# 0.07 X10^3/uL; Basophil% 1.2 % (0-1); Eosinophils% 3.5 % (0-5); Hematocrit 40.4 % (37-47); Hemoglobin 13.7 g/dL (12.0-15.0); Lymphocyte # 1.95 X10^3/ul (0.83-4.51); Lymphocyte % 34.2 % (19-41); Mean Corp Hgb Conc 33.9 g/dL (32-36); Mean Corpuscular Hgb 32.2 pg (27.0-32.0); Mean Corpuscular Volume 95.1 fL (81-99); Mean Platelet Vol. 11.2 fl (6.2-12.0); Monocyte# 0.54 X10^3/uL; Monocyte% 9.5 % (0-10); NRBC Flagged by Analyzer 0 % (0-5); Neutrophil # 2.94 X10^3/uL (2.7-7.7); Neutrophil % 51.4 % (47-70); Platelet Count 153 K/mm3 (150-450); RBC Distribution Width CV 13.8 % (11.6-14.6); RBC Distribution Width SD 48.1 fl (35.1-43.9); Red Blood Count 4.25 M/mm3 (4.2-5.4); White Blood Count 5.7 K/mm3 (4.4-11.0)
--- NOTE | 2024-04-22 22:26 | EX.ED.DYSGE1 ---
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 She states none of this is new. She states she was seen at urgent care sometime this past week or 2 and started on amlodipine 2.5 mg in addition to her other blood pressure medications because she has been having high numbers. Her head pressure has been waxing and waning. She states yesterday it was really severe. Right now and tonight it is not and it is barely there. She has had no recent illness or fall or injury, she denies any chest discomfort, dyspnea, vision changes, speech changes, or focal neurologic symptoms. She has chronic leg edema that is unchanged. 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 [facility] Medical History History of esophageal dilatation Obesity (BMI 35.0-39.9 without comorbidity) Edema of right lower extremity due to peripheral venous insufficiency Edema of left lower extremity due to peripheral venous insufficiency Edema of right lower extremity Edema of left lower extremity Swelling of right lower extremity Swelling of left lower extremity Venous stasis dermatitis Atrial fibrillation Overactive bladder Esophageal stricture Hearing deficit Tinnitus History of basal cell cancer Diaphragmatic hernia Diabetic neuropathy Aortic stenosis Hyperlipidemia Chronic venous insufficiency Osteoporosis Thrombocytopenia Metabolic acidosis Hypokalemia Gastroenteritis Acute kidney injury Hiatal hernia Dyslipidemia HTN (hypertension) GERD (gastroesophageal reflux disease) Esophageal spasm Diabetes mellitus Home Medications ?Medication ?Instructions ?Recorded ?Last Taken ?Type metformin 500 mg tablet 500 mg PO UD diabetes 07/05/17 07/29/23 History hydrochlorothiazide 25 mg tablet 25 mg PO DAILY diuretic 04/01/18 07/29/23 05:00 History carvedilol 3.125 mg tablet (Coreg) 3.125 mg PO BID BP 10/10/22 08/12/23 10:00 History 3.125 mg nitroglycerin 0.4 mg sublingual 0.4 mg sublingual Q5M 10/10/22 Unknown History tablet (Nitrostat) sitagliptin phosphate 100 mg 100 mg PO DAILY blood sugar 10/10/22 07/29/23 History tablet (Januvia) furosemide 80 mg tablet 40 mg (1/2 x 80 mg) PO DAILY PRN 08/14/23 Unknown Rx edema 30 days #0 tabs amlodipine 5 mg tablet 5 mg PO DAILY 04/22/24 Unknown History cefadroxil 500 mg capsule 500 mg PO BID 04/22/24 Unknown History clonidine HCl 0.1 mg tablet 0.1 mg PO BID PRN SBP > 170 #10 04/22/24 Unknown Rx tabs glimepiride 2 mg tablet 2 mg PO QPM 04/22/24 Unknown History lisinopril 40 mg tablet 40 mg PO BID 04/22/24 Unknown History Allergy/AdvReac Type Severity Reaction Status Date / Time acetaminophen (From Vicodin) Allergy Other Verified 04/22/24 21:35 celecoxib (From Celebrex) Allergy Unknown Verified 04/22/24 21:35 codeine Allergy Unknown Verified 04/22/24 21:35 hydrocodone (From Vicodin) Allergy Other Verified 04/22/24 21:35 morphine Allergy Other Verified 04/22/24 21:35 niacin Allergy Unknown Verified 04/22/24 21:35 Penicillins Allergy Unknown Verified 04/22/24 21:35 prednisone Allergy Unknown Verified 04/22/24 21:35 Sulfa (Sulfonamide Allergy Unknown Verified 04/22/24 21:35 Antibiotics) Family History Mother Asthma Father Heart disease Hypertension Arthritis Surgical History History of cholecystectomy History of laparoscopic cholecystectomy History of nasal surgery History of surgery on left wrist History of tonsillectomy history ORIF left wrist History repair broken nose Social History Smoking Status: Never smoker alcohol intake: never substance use type: does not use ROS ROS ED Constitutional Constitutional ED: Denies chills or fever(s) Eyes Eyes: Denies change in vision or diplopia ENT ENT ED: Reports as per HPI and headache(s); Denies rhinorrhea or sore throat Cardiovascular Cardiovascular: Reports leg edema; Denies chest pain or palpitations Respiratory/Chest Respiratory/Chest: Denies cough or dyspnea Gastrointestinal Gastrointestinal: Denies abdominal pain, diarrhea, nausea or vomiting Genitourinary Genitourinary ED: Denies dysuria or hematuria Musculoskeletal Musculoskeletal: Denies back pain or neck pain Integumentary Denies abscess or rash Neurologic Neurologic: Reports headache(s); Denies paresthesias or weakness Psychiatric Psychiatric: Denies suicidal thoughts EXAM Physical Exam Const Vital Signs: 04/22/24 21:35 04/22/24 21:41 04/22/24 23:26 Temperature 97.6 F L Temperature Source Oral Pulse Rate 82 77 Respiratory Rate 18 29 H Respiratory Effort Normal Respiratory Pattern Normal Blood Pressure 217/100 H 160/86 H Blood Pressure Mean 139 110 Pulse Ox 97 98 Oxygen Delivery Method Room Air Room Air Positive well nourished and well developed Constitutional Narrative: well-appearing, conversive, pleasant General Appearance ED: well developed and NAD HEENT Reports moist mucous membranes normocephalic and atraumatic Eyes PERRL and EOMs intact bilaterally Neck full ROM and supple Resp normal respiratory effort and clear to auscultation bilaterally Cardio regular rate and regular rhythm GI non-tender and non-distended Auscultation: normoactive bowel sounds Palpation: soft Back/Spine no CVA tenderness General Back: other FROM Extremity normal to inspection General Extremety ED: Yes edema; Negative for pulses abnormal or tenderness General Extremity: edema bilateral lower extremity Details: moderate (With chronic stasis dermatitis, a shallow ulceration on the left lower leg, nothing tender. Both legs look symmetric.); Negative for pulses abnormal Neuro oriented x3, CN's II-XII intact bilaterally and no sensory deficits noted Neuro Narrative: No aphasia or dysarthria. Normal [id number] and [id number] bilaterally. Sensorium / Orientation: awake and alert Motor Exam: strength 5/5 throughout Skin no rashes or lesions noted and no wounds MDM MDM MDM Narrative Medical decision making narrative: I suspect her headache is related to her elevated blood pressure. She states she checks it twice a day usually but did not check it today, and just states that it has been running high for weeks. Therefore in order to attempt to bring her down around 30% from her triage blood pressure of 217 systolic, she was given clonidine 0.1 mg orally while we obtained a CT to rule out hemorrhage, which is negative on my interpretation, as confirmed by radiology, and looked at her renal function and blood counts. Those are all normal as well on my interpretation. On reexamination she states her head feels much better and her blood pressure is 160/86. She was able to get up and go to the bathroom for a bowel movement she had no orthostasis or other symptoms. She is close to baseline and having some of the musical ear symptoms but less, stable for discharge. I recommend close outpatient follow-up with her PCP regarding blood pressure recheck and ongoing to give her a prescription for a small amount of clonidine to use as needed for high pressures in the meantime. History & Record Review Additional record(s) reviewed:: Other (Echo 2020 showing mild aortic stenosis) Lab Data Attestation: I reviewed the patient's lab results. Labs: Laboratory Results - last 24 hr 04/22/24 22:00 WBC 5.7 RBC 4.25 Hgb 13.7 Hct 40.4 MCV 95.1 MCH 32.2 H MCHC 33.9 RDW Std Deviation 48.1 H RDW Coeff of Eduardo 13.8 Plt Count 153 MPV 11.2 Immature Gran % (Auto) 0.200 Neut % (Auto) 51.4 Lymph % (Auto) 34.2 [place] % (Auto) 9.5 Eos % (Auto) 3.5 Baso % (Auto) 1.2 H Absolute Neuts (auto) 2.9 Absolute Lymphs (auto) 1.95 Nucleated RBC % 0 Sodium 139 Potassium 4.0 Chloride 105 Carbon Dioxide 28.0 Anion Gap 6 BUN 27 H Creatinine 0.91 Estim Creat Clear Calc 57.53 Est GFR (MDRD) Af Amer 76 Est GFR (MDRD) Non-Af 63 BUN/Creatinine Ratio 29.7 H Glucose 229 H Calcium 10.1 Radiography Diagnostic Testing: Clinical Impression(s) from Imaging Studies Brain CT 04/22/24 22:08 IMPRESSION: Mild generalized atrophy. Mild low density bilaterally in the deep white matter. This likely represents chronic small vessel ischemic changes in the deep white matter. Electronically Signed: Praveen Webster MD at 22:58 EST , Discharge Plan Triage Chief Complaint: Hypertension ED Provider: Fer Choudhury Dx/Rx/DC Orders Clinical Impression: Accelerated hypertension, Headache, Disturbed hearing Instructions: Hypertension Dc Prescriptions: New clonidine HCl 0.1 mg tablet 0.1 mg PO BID PRN (Reason: SBP > 170) Qty: 10 0RF No Action metformin 500 mg tablet 500 mg PO UD Patient Comments: diabetes Rx Instructions: 2 TABS AT BREAKFAST; 1 TAB AT LUNCH; AND 2 TABS AT DINNER. hydrochlorothiazide 25 MG tablet 25 mg PO DAILY Patient Comments: blood pressure/diuretic nitroglycerin [Nitrostat] 0.4 mg tablet, sublingual 0.4 mg sublingual Q5M Rx Instructions: do not exceed 3 doses per episode carvedilol [Coreg] 3.125 mg tablet 3.125 mg PO BID Rx Instructions: must administer with a meal/food Januvia 100 mg tablet 100 mg PO DAILY furosemide 80 MG tablet 40 mg PO DAILY PRN (Reason: edema) 30 Days Qty: 0 0RF amlodipine 5 mg tablet 5 mg PO DAILY glimepiride 2 mg tablet 2 mg PO QPM cefadroxil 500 mg capsule 500 mg PO BID lisinopril 40 mg tablet 40 mg PO BID Primary Care Provider: Arturo Marie Referrals: Arturo Marie MD [Primary Care Provider] - As soon as possible Print Language: Tamazight
[2024-04-22 22:36] LABS: Anion Gap 6 (5-15); BUN 27 mg/dL (7-18); BUN/Creat Ratio 29.7 RATIO (10-20); Calcium,Total 10.1 mg/dL (8.5-10.1); Chloride 105 mmol/L (98-107); Creatinine, Serum 0.91 mg/dL (0.55-1.02); EST Glomerular Filtration Rate 63 mL/min (>60); Est Glom Filt Rate - Afr Amer 76 mL/min (>60); Estimated Creatinine Clearance 57.53 ml/min; Glucose 229 mg/dL (74-106); Sodium Level 139 mmol/L (136-145)
[2024-04-22] MEDS: cloNIDine HCl 0.1 MG Tablet PO (22:38)
[2024-04-22 23:26] VITALS: BP 160/86; PULSE 77; RESP 29; O2SAT 98
[2024-04-22 23:42] VITALS: BP 158/66; PULSE 80; RESP 14; TEMP 36.6; O2SAT 99
== END 2024-04-22 23:52 | disposition home or self-care (01) ==
LOC: ED 22:40
PROVIDERS: Emergency Provider Emergency Medicine; PCP Family Medicine; Visit Provider Emergency Medicine
DX: I10 Essential (primary) hypertension (principal); L97.929 Non-pressure chronic ulcer of unspecified part of left lower leg with unspecified severity; I48.91 Unspecified atrial fibrillation; E11.40 Type 2 diabetes mellitus with diabetic neuropathy, unspecified; H93.293 Other abnormal auditory perceptions, bilateral; R51.9 Headache, unspecified; I35.0 Nonrheumatic aortic (valve) stenosis; E78.5 Hyperlipidemia, unspecified; R60.0 Localized edema; K21.9 Gastro-esophageal reflux disease without esophagitis; Z79.84 Long term (current) use of oral hypoglycemic drugs; Z79.899 Other long term (current) drug therapy
CPT/HCPCS: 70450; 80048; 85025; 99285

== ENCOUNTER 2024-06-16 14:08 | Emergency (ER) | payer MEDICARE, SELFPAY ==
[2024-06-16 14:09] VITALS: BP 219/94; PULSE 78; RESP 15; TEMP 36.2; O2SAT 96; BMI 36.6
[2024-06-16 15:29] VITALS: BP 162/93; PULSE 75; RESP 18; TEMP 36.3; O2SAT 98
[2024-06-16 16:00] VITALS: PULSE 74; O2SAT 97
--- NOTE | 2024-06-16 16:00 | EDS_ITS ---
HPI History of Present Illness Chief Complaint: Fall Informant: patient Narrative Narrative: 84-year-old female presenting to the emergency room with headache and rib pain. Patient states that last around 12:30 at night she was cleaning her toilet when she lost her balance and fell backwards into the drywall. She states that since that time she has had pain left lateral ribs right scapular region and a headache. She states her headache got worse on Sunday. Today she was sitting in her chair and went to reach for something and the pain in the left lateral ribs got worse. She had a home nurse come for a visit to inquired about recent falls. She mentioned her symptoms and the nurse called the patient's doctor who recommended she come to emergency. She denies any hemoptysis or neurologic deficits. She denies any bruising. No dyspnea or significant cough. She states that she is not on a blood thinner. [facility] Medical History History of esophageal dilatation Obesity (BMI 35.0-39.9 without comorbidity) Edema of right lower extremity due to peripheral venous insufficiency Edema of left lower extremity due to peripheral venous insufficiency Edema of right lower extremity Edema of left lower extremity Swelling of right lower extremity Swelling of left lower extremity Venous stasis dermatitis Atrial fibrillation Overactive bladder Esophageal stricture Hearing deficit Tinnitus History of basal cell cancer Diaphragmatic hernia Diabetic neuropathy Aortic stenosis Hyperlipidemia Chronic venous insufficiency Osteoporosis Thrombocytopenia Metabolic acidosis Hypokalemia Gastroenteritis Acute kidney injury Hiatal hernia Dyslipidemia HTN (hypertension) GERD (gastroesophageal reflux disease) Esophageal spasm Diabetes mellitus Home Medications ?Medication ?Instructions ?Recorded ?Last Taken ?Type metformin 500 mg tablet 500 mg PO UD diabetes 07/29/23 History hydrochlorothiazide 25 mg tablet 25 mg PO DAILY diuret ic 04/01/18 07/29/23 05:00 History carvedilol 3.125 mg tablet (Coreg) 3.125 mg PO BID BP 10/10/22 08/12/23 10:00 History 3.125 mg nitroglycerin 0.4 mg sublingual 0.4 mg sublingual Q5M 10/10/22 Unknown History tablet (Nitrostat) sitagliptin phosphate 100 mg 100 mg PO DAILY blood sug ar 10/10/22 07/29/23 History tablet (Januvia) furosemide 80 mg tablet 40 mg (1/2 x 80 mg) PO DAILY PRN 08/14/23 Unknown Rx edema 30 days #0 tabs amlodipine 5 mg tablet 5 mg PO DAILY 04/22/24 Unkno wn History cefadroxil 500 mg capsule 500 mg PO BID 04/22/24 Unkno wn History clonidine HCl 0.1 mg tablet 0.1 mg PO BID PRN SBP > 17 0 #10 04/22/24 Unknown Rx tabs glimepiride 2 mg tablet 2 mg PO QPM 04/22/24 Unknown History lisinopril 40 mg tablet 40 mg PO BID 04/22/24 Unknow n History pantoprazole 40 mg tablet,delayed 40 mg PO QDAY #90 ta bs 04/30/24 Unknown Rx release Allergy/AdvReac Type Severity Reaction Status Date / Time acetaminophen (From Vicodin) Allergy Other Verified 06/16/24 14:13 celecoxib (From Celebrex) Allergy Unknown Verified 06/16/24 14:13 codeine Allergy Unknown Verified 06/16/24 14:13 hydrocodone (From Vicodin) Allergy Other Verified 06/16/24 14:13 morphine Allergy Other Verified 06/16/24 14:13 niacin Allergy Unknown Verified 06/16/24 14:13 Penicillins Allergy Unknown Verified 06/16/24 14:13 prednisone Allergy Unknown Verified 06/16/24 14:13 Sulfa (Sulfonamide Allergy Unknown Verified 06/16/24 14:13 Antibiotics) Family History Mother Asthma Father Heart disease Hypertension Arthritis Surgical History History of tonsillectomy History of nasal surgery History of surgery on left wrist History of cholecystectomy History repair broken nose history ORIF left wrist History of laparoscopic cholecystectomy Social History Smoking Status: Never smoker alcohol intake: never substance use type: does not use ROS ROS ED Constitutional Constitutional ED: Denies chills, fever(s) or weight loss Eyes Eyes: Denies change in vision or diplopia ENT ENT ED: Denies ear pain, rhinorrhea or sore throat Cardiovascular Cardiovascular: Reports chest pain and other Details: See history of present ill ness ; Denies orthopnea, palpitations or racing heartbeat Respiratory/Chest Respiratory/Chest: Denies cough, dyspnea or orthopnea Gastrointestinal Gastrointestinal: Denies abdominal pain, diarrhea, nausea or vomiting Genitourinary Genitourinary ED: Denies dysuria, hematuria or urinary frequency Musculoskeletal Musculoskeletal: Reports back pain and neck pain; Denies arthralgias or myalgias Integumentary Denies abscess or rash Neurologic Neurologic: Reports headache(s); Denies weakness Psychiatric Psychiatric: Denies anxiety, depression, suicidal ideation or suicidal thoughts Endocrine Endocrinology: Denies polydipsia, polyphagia or polyuria Allergic/Immunologic Allergic/Immunologic ED: Denies mouth swelling, tongue swelling or urticaria EXAM Physical Exam Narrative Exam Narrative: Patient is able to ambulate down the hallway using her cane. Const Vital Signs: 06/16/24 14:09 06/16/24 15:29 06/16/24 15:29 Temperature 97.1 F L 97.3 F L Temperature Source Temporal Oral Pulse Rate 78 75 Respiratory Rate 15 18 Blood Pressure 219/94 H 162/93 H Blood Pressure Mean 135 116 Pulse Ox 96 98 Oxygen Delivery Method Room Air Room Air Room Air 06/16/24 16:00 06/16/24 16:52 06/16/24 17:33 Temperature 97.3 F L Temperature Source Pulse Rate 74 74 Respiratory Rate 18 Blood Pressure 174/85 H 174/85 H Blood Pressure Mean 114 114 Pulse Ox 97 97 Oxygen Delivery Method Room Air Positive well nourished, well developed and obese General Appearance ED: well developed and NAD Nutritional Appearance: obese HEENT Reports normocephalic, head/scalp atraumatic and moist mucous membranes Eyes PERRL and EOMs intact bilaterally Neck full ROM, no lymphadenopathy, supple and no JVD Chest Wall Chest Narrative: Tender to palpation over the mid lateral left ribs. No ecchymosis is noted. No subcutaneous emphysema or crepitance is felt. Resp normal respiratory effort and clear to auscultation bilaterally Cardio regular rate, regular rhythm and no murmurs GI normal to inspection, nondistended, normoactive bowel sounds and non-tender Palpation: soft Back/Spine no CVA tenderness and normal ROM Back/Spine Narrative: Patient notes tenderness to palpation in the right scapular region just medial over the posterior ribs. No ecchymosis is seen. Extremity normal to inspection and full ROM General Extremety ED: Negative for edema General Extremity: Negative for edema Neuro oriented x3 and CN's II-XII intact bilaterally Sensorium / Orientation: alert Motor Exam: strength 5/5 throughout Psych mental status grossly normal Mood & Affect: Negative for depressed or tearful Skin no rashes or lesions noted and no wounds MDM MDM MDM Narrative Medical decision making narrative: Differential diagnosis includes skull fracture intracranial hemorrhage cervical spine fracture thoracic spine fracture rib fracture rib contusion costochondral separation pneumothorax hemothorax myofascial strain CT of the brain cervical spine and chest was obtained. These were read by radiology reviewed by myself. CT of the brain does not demonstrate acute hemorrhage or fracture. CT of the cervical spine with no acute fracture. CT of the chest demonstrates no obvious rib fracture pneumothorax or hemothorax. Daren brock clinically appears well. We can discharge her home with supportive care follow-up History & Record Review Discussion w/independent historian: Patient Lab Data Attestation: I reviewed the patient's lab results. Radiography Diagnostic Testing: Clinical Impression(s) from Imaging Studies Brain CT 06/16/24 16:10 IMPRESSION: Senescent changes. No evidence of acute intracranial abnormality. Reading Location: [facility] Cervical Spine CT 06/16/24 16:10 IMPRESSION: Senescent changes. No evidence of acute cervical spine fracture. Reading Location: [facility] Chest CT 06/16/24 16:10 IMPRESSION: No definite rib fracture is seen. Please note demineralization does limit sen sitivity. Robust vascular calcification. Small sliding hiatal hernia. Patchy bibasilar atelectasis. Cardiac enlargement Reading Location: [facility] Discharge Plan Triage Chief Complaint: Fall ED Provider: Richard Loo Dx/Rx/DC Orders Clinical Impression: Fall, Head injury, Headache, Contusion of rib, Acute thoracic myofascial strain Instructions: ED Chest Wall Contusion, ED Head Injury (Adult) Prescriptions: No Action pantoprazole 40 mg tablet,delayed release (DR/EC) 40 mg PO QDAY Qty: 90 2RF metformin 500 mg tablet 500 mg PO UD Patient Comments: diabetes Rx Instructions: 2 TABS AT BREAKFAST; 1 TAB AT LUNCH; AND 2 TABS AT DINNER. hydrochlorothiazide 25 MG tablet 25 mg PO DAILY Patient Comments: blood pressure/diuretic nitroglycerin [Nitrostat] 0.4 mg tablet, sublingual 0.4 mg sublingual Q5M Rx Instructions: do not exceed 3 doses per episode carvedilol [Coreg] 3.125 mg tablet 3.125 mg PO BID Rx Instructions: must administer with a meal/food Januvia 100 mg tablet 100 mg PO DAILY furosemide 80 MG tablet 40 mg PO DAILY PRN (Reason: edema) 30 Days Qty: 0 0RF amlodipine 5 mg tablet 5 mg PO DAILY glimepiride 2 mg tablet 2 mg PO QPM cefadroxil 500 mg capsule 500 mg PO BID lisinopril 40 mg tablet 40 mg PO BID clonidine HCl 0.1 mg tablet 0.1 mg PO BID PRN (Reason: SBP > 170) Qty: 10 0RF Primary Care Provider: Arturo Marie Referrals: Arturo Marie MD [Primary Care Provider] - 1 Week if not improving Print Language: Arabic Disposition Disposition: Home, Self Care Discharge Date/Time: 06/16/24 17:38
--- NOTE | 2024-06-16 16:10 | CT_ITS ---
PROCEDURE: CHEST WITHOUT CONTRAST 06/16/2024 REASON FOR EXAM: RIB INJURY TECHNIQUE: Axial chest CT without contrast. Axial and sagittal reconstructions performed. COMPARISON: None. FINDINGS: Mild motion degraded examination Demineralization does limit sensitivity. Scattered multilevel degenerative disc disease in the thoracic spine The heart size is enlarged. There are aortic valve calcification. Small sliding hiatal hernia. Mild motion degraded examination. No pneumothorax or pleural effusion. Bibasilar atelectasis. Ascending aorta measures 3.5 cm Hepatic steatosis. Cholecystectomy changes. Robust upper abdominal vascular calcification. 5 mm left midpole stone. Parapelvic cysts seen in both kidneys. CT/Chest without Contrast IMPRESSION: No definite rib fracture is seen. Please note demineralization does limit sens itivity. Robust vascular calcification. Small sliding hiatal hernia. Patchy bibasilar atelectasis. Cardiac enlargement Reading Location: [id number]
--- NOTE | 2024-06-16 16:10 | CT_ITS ---
PROCEDURE: SPINE CERVICAL WITHOUT CONTRAS 06/16/2024 REASON FOR EXAM: TRAUMA TECHNIQUE: Cervical spine CT without contrast. Coronal and Sagittal reconstruction series were provided. One or more dose reduction techniques were used (e.g., Automated exposure control, adjustment of the mA and/or kV according to patient size, use of iterative reconstruction technique COMPARISON: None. FINDINGS: Demineralization of the bones. This limits sensitivity. No evidence of acute fracture or malalignment. Tortuous vascularity. Scattered mild degenerative changes. Prevertebral soft tissues within normal limits. CT/Spine Cervical without Contras IMPRESSION: Senescent changes. No evidence of acute cervical spine fracture. Reading Location: [id number]
--- NOTE | 2024-06-16 16:10 | CT_ITS ---
EXAM: BRAIN/HEAD WITHOUT CONTRAST CLINICAL HISTORY: TRAUMA HEADACHE COMPARISON: April 2024 TECHNIQUE: Noncontrast head CT performed using standard technique. Sagittal and coronal reconstructions added. FINDINGS: Global volume loss and moderate chronic small-vessel ischemic change. No mass effect. No midline shift. No acute hemorrhage. No acute skull fracture. Mastoid air cells and paranasal sinuses are clear. CT/Brain/Head without Contrast IMPRESSION: Senescent changes. No evidence of acute intracranial abnormality. Reading Location: [id number]
[2024-06-16 16:52] VITALS: BP 174/85
[2024-06-16 17:33] VITALS: BP 174/85; PULSE 74; RESP 18; TEMP 36.3; O2SAT 97
== END 2024-06-16 17:38 | disposition home or self-care (01) ==
PROVIDERS: Emergency Provider Emergency Medicine; PCP Family Medicine; Visit Provider Emergency Medicine
DX: S29.012A Strain of muscle and tendon of back wall of thorax, initial encounter (principal); I48.91 Unspecified atrial fibrillation; E11.40 Type 2 diabetes mellitus with diabetic neuropathy, unspecified; S09.90XA Unspecified injury of head, initial encounter; S20.212A Contusion of left front wall of thorax, initial encounter; M25.511 Pain in right shoulder; W01.198A Fall on same level from slipping, tripping and stumbling with subsequent striking against other object, initial encounter; I10 Essential (primary) hypertension; Y93.E9 Activity, other interior property and clothing maintenance; E78.5 Hyperlipidemia, unspecified; E66.9 Obesity, unspecified; Z79.84 Long term (current) use of oral hypoglycemic drugs; Z79.899 Other long term (current) drug therapy
CPT/HCPCS: 70450; 71250; 72125; 99282

== ENCOUNTER 2024-08-21 08:28 | Emergency (ER) | payer MEDICARE, SELFPAY ==
[2024-08-21 08:30] VITALS: BP 185/101; PULSE 82; RESP 19; TEMP 36.5; O2SAT 98; BMI 36.9
--- NOTE | 2024-08-21 08:45 | CT_ITS ---
EXAM: NONCONTRAST CT SCAN OF THE HEAD CLINICAL HISTORY: Headache, dizziness COMPARISON: June 16, 2024 TECHNIQUE: Serial axial series through the head were obtained without contrast. 2-D coronal and sagittal reformats were then obtained. FINDINGS: Brain: There is no acute large territorial infarct, intracranial hemorrhage, midline shift or mass effect. There are atherosclerotic vascular calcifications involving the bilateral carotid siphons. The sella and pineal gland regions appear unremarkable. There is no evidence of cerebellar tonsillar herniation. There is low-density in the deep white matter on the right and left, consistent with chronic ischemic changes, similar to the prior. Ventricles: There is no acute hydrocephalus. Basilar cisterns are patent. Paranasal sinuses: Well-aerated Mastoid air cells: Well-aerated. Calvarium: The bony calvarium is intact. Orbits: The bilateral globes are symmetric, without retrobulbar compressive mass lesion or hemorrhage. CT/Brain/Head without Contrast IMPRESSION: There is low-density in the deep white matter on the right and left, consistent with chronic ischemic changes, similar to the prior. No acute intracranial pathology. Reading Location: [id number]
--- NOTE | 2024-08-21 08:45 | EKG12_ITS ---
Test Reason : Blood Pressure : */* mmHG Vent. Rate : 76 BPM Atrial Rate : 76 BPM P-R Int : 186 ms QRS Dur : 86 ms QT Int : 390 ms P-R-T Axes : 66 23 43 degrees QTcB Int : 438 ms Sinus rhythm with Premature supraventricular complexes Otherwise normal ECG Confirmed by LUCIUS ACOSTA, ALMA DELIA ([id number]), image editor SUSIE LANCE ([id number]) on 08/26/2024 6:51:13 AM Referred By: TAO Confirmed By: ALMA DELIA KAN MD
--- NOTE | 2024-08-21 08:48 | EX.ED.DYSGE1 ---
HPI History of Present Illness Chief Complaint: Hypertension Detail of Chief Complaint: Headache, dizziness, hypertension Informant: patient Narrative Narrative: Patient presents to the emergency department from home via EMS with complaint of a headache that started yesterday. Patient states that this morning she was dizzy and felt like she could not walk very well. She describes vertiginous like symptoms. 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 Patient states that she was diagnosed with this by her ear nose and throat physician related to her hearing loss. She gets headaches from time to time but typically they are posterior and this 1 is the front of her head. She had hard time sleeping last night. She describes nausea. She has had no vomiting. She denies fever or recent illness. She did fall about 8 weeks ago and was seen in the emergency department at which time she had a CT of her brain and also continued to have headaches afterwards and had an MRI of her brain apparently that was unremarkable. Patient also has history of hypertension and noted that this morning her blood pressure was higher than usual. She did not take her blood pressure medicine this morning. She denies chest pain or shortness of breath. She denies abdominal pain. She denies urinary symptoms. [facility] Medical History History of esophageal dilatation Obesity (BMI 35.0-39.9 without comorbidity) Edema of right lower extremity due to peripheral venous insufficiency Edema of left lower extremity due to peripheral venous insufficiency Edema of right lower extremity Edema of left lower extremity Swelling of right lower extremity Swelling of left lower extremity Venous stasis dermatitis Atrial fibrillation Overactive bladder Esophageal stricture Hearing deficit Tinnitus History of basal cell cancer Diaphragmatic hernia Diabetic neuropathy Aortic stenosis Hyperlipidemia Chronic venous insufficiency Osteoporosis Thrombocytopenia Metabolic acidosis Hypokalemia Gastroenteritis Acute kidney injury Hiatal hernia Dyslipidemia HTN (hypertension) GERD (gastroesophageal reflux disease) Esophageal spasm Diabetes mellitus Home Medications ?Medication ?Instructions ?Recorded ?Last Taken ?Type metformin 500 mg tablet 500 mg PO UD diabetes 07/05/17 08/20/24 History hydrochlorothiazide 25 mg tablet 25 mg PO DAILY diuretic 04/01/18 07/29/23 05:00 History carvedilol 3.125 mg tablet (Coreg) 3.125 mg PO BID BP 10/10/22 08/20/24 History nitroglycerin 0.4 mg sublingual 0.4 mg sublingual Q5M 10/10/22 Unknown History tablet (Nitrostat) sitagliptin phosphate 100 mg 100 mg PO DAILY blood sugar 10/10/22 07/29/23 History tablet (Januvia) furosemide 80 mg tablet 40 mg (1/2 x 80 mg) PO DAILY PRN 08/14/23 Unknown Rx edema 30 days #0 tabs amlodipine 5 mg tablet 5 mg PO DAILY 04/22/24 08/20/24 History cefadroxil 500 mg capsule 500 mg PO BID 04/22/24 Unknown History clonidine HCl 0.1 mg tablet 0.1 mg PO BID PRN SBP > 170 #10 04/22/24 Unknown Rx tabs glimepiride 2 mg tablet 2 mg PO QPM 04/22/24 08/20/24 History lisinopril 40 mg tablet 40 mg PO BID 04/22/24 08/20/24 History pantoprazole 40 mg tablet,delayed 40 mg PO QDAY #90 tabs 04/30/24 Unknown Rx release meclizine 25 mg chewable tablet 25 mg PO TID PRN dizziness #10 tabs 08/21/24 Unknown Rx (Antivert) Allergy/AdvReac Type Severity Reaction Status Date / Time acetaminophen (From Vicodin) Allergy Other Verified 08/21/24 08:47 celecoxib (From Celebrex) Allergy Unknown Verified 08/21/24 08:47 codeine Allergy Unknown Verified 08/21/24 08:47 hydrocodone (From Vicodin) Allergy Other Verified 08/21/24 08:47 morphine Allergy Other Verified 08/21/24 08:47 niacin Allergy Unknown Verified 08/21/24 08:47 Penicillins Allergy Unknown Verified 08/21/24 08:47 prednisone Allergy Unknown Verified 08/21/24 08:47 Sulfa (Sulfonamide Allergy Unknown Verified 08/21/24 08:47 Antibiotics) Family History Mother Asthma Father Heart disease Hypertension Arthritis Surgical History History of tonsillectomy History of nasal surgery History of surgery on left wrist History of cholecystectomy History repair broken nose history ORIF left wrist History of laparoscopic cholecystectomy Social History Smoking Status: Never smoker alcohol intake: never substance use type: does not use ROS ROS ED Review of Systems ROS Unobtainable: other Constitutional Constitutional ED: Reports lethargy; Denies chills, fever(s), sweats or weight loss Eyes Eyes: Denies blurry vision, change in vision or diplopia ENT ENT ED: Denies rhinorrhea or sore throat Cardiovascular Cardiovascular: Denies chest pain, orthopnea or racing heartbeat Respiratory/Chest Respiratory/Chest: Denies cough, dyspnea, dyspnea on exertion, orthopnea or sputum Gastrointestinal Gastrointestinal: Reports nausea; Denies abdominal pain, diarrhea or vomiting Genitourinary Genitourinary ED: Denies dysuria, hematuria or urinary frequency Musculoskeletal Musculoskeletal: Denies arthralgias, back pain, myalgias or neck pain Integumentary Denies abscess, Abrasions or rash Neurologic Neurologic: Reports headache(s) and other Details: Dizziness ; Denies weakness Psychiatric Psychiatric: Denies anxiety, depression or suicidal thoughts Endocrine Endocrinology: Denies polydipsia, polyphagia or polyuria Hematologic/Lymphatic Hematologic/Lymphatic: Denies easy bleeding, easy bruising or lymphadenopathy Allergic/Immunologic Allergic/Immunologic ED: Denies mouth swelling, tongue swelling or urticaria EXAM Physical Exam Const Vital Signs: 08/21/24 08:30 08/21/24 09:01 08/21/24 10:21 Temperature 97.7 F L Temperature Source Oral Pulse Rate 82 79 Pulse Rate [Lying] 74 Pulse Rate [Sitting (for 1 minute prior to obtaining)] 84 Pulse Rate [Standing (for 1 minute prior to obtaining)] 82 Respiratory Rate 19 H 12 Blood Pressure 185/101 H 148/67 H Blood Pressure [Lying] 173/74 H Blood Pressure [Sitting (for 1 minute prior to obtaining)] 184/99 H Blood Pressure [Standing (for 1 minute prior to obtaining)] 183/100 H Blood Pressure Mean 129 94 Blood Pressure Mean [Lying] 107 Blood Pressure Mean [Sitting (for 1 minute prior to obtaining)] 127 Blood Pressure Mean [Standing (for 1 minute prior to obtaining)] 127 Pulse Ox 98 96 Oxygen Delivery Method Room Air Room Air Positive well nourished and well developed General Appearance ED: well developed and NAD HEENT Reports TM's clear and moist mucous membranes normocephalic and atraumatic; Negative for trauma or tenderness Tympanic Membrane ED: Yes TM's clear Eyes PERRL and EOMs intact bilaterally General Eye ED: Negative for pale conjunctiva or scleral icterus Neck no lymphadenopathy, supple and no JVD General: Negative for tenderness Chest Wall inspection of chest normal and palpation of chest normal Chest: Negative for tenderness Resp normal respiratory effort and clear to auscultation bilaterally Effort and Inspection: Negative for respiratory distress or pain with movement Auscultation: Negative for rhonchi, wheezes or diminished lung sounds Cardio regular rate, regular rhythm, S1 normal heart sound, S2 normal heart sound and no murmurs Peripheral Pulses: pulses 2+ throughout GI normal to inspection, nondistended, normoactive bowel sounds, soft to palpation, non-tender, non-distended and no masses Back/Spine no CVA tenderness and no thoracic nor lumbar tenderness Extremity normal to inspection General Extremety ED: Negative for edema General Extremity: Negative for edema Neuro oriented x3, CN's II-XII intact bilaterally, no sensory deficits noted and gait normal Neuro Narrative: Negative Hallpike maneuver. Finger-nose and heel pitts testing within normal limits. No pronator drift. No focal deficits. Sensorium / Orientation: awake, alert, oriented to person, oriented to place and oriented to time Motor Exam: strength 5/5 throughout and strength abnormal Psych mental status grossly normal Skin no rashes or lesions noted and no wounds MDM MDM MDM Narrative Medical decision making narrative: Patient presents with multiple complaints of headache and dizziness and hypertension this morning. She did not take her blood pressure medications this morning. She has not complained of any chest pain. She has history of headaches intermittently. She tells me she is compliant with her blood pressure medication however she told the nurse that she sometimes forgets to take it. IV line established. EKG obtained arrival shows sinus rhythm with ventricular rate of 76 bpm with occasional PACs. CBC with differential shows a white count 5.0 with hemoglobin 13.8 and platelet count of 158. Chemistries unremarkable. First troponin minimally elevated 18. Delta troponin 2 hours was 15. I do not feel she is having acute coronary syndrome. She had a CT scan of the brain without contrast that was unremarkable which showed some chronic microvascular changes. While in department she received Antivert as well as Zofran and Toradol and her headache resolved. Her dizziness significantly improved and she was able to ambulate to the bathroom. She was given her blood pressure medication that she normally takes in the morning and her blood pressure normalized with systolic into the 130s and diastolic in the 70s. At this point she is feeling markedly improved. She will be discharged home with a prescription for Antivert. She is referred to ENT for follow-up. She is advised to take her medications regularly. Lab Data Attestation: I reviewed the patient's lab results. Labs: Laboratory Results - last 24 hr 08/21/24 08/21/24 08/21/24 08:35 09:10 10:35 WBC 5.0 RBC 4.32 Hgb 13.8 Hct 41.6 MCV 96.3 MCH 31.9 MCHC 33.2 RDW Std Deviation 47.4 H RDW Coeff of Eduardo 13.4 Plt Count 158 MPV 11.6 Immature Gran % (Auto) 0.200 Neut % (Auto) 59.2 Lymph % (Auto) 26.3 Crosby % (Auto) 9.9 Eos % (Auto) 3.2 Baso % (Auto) 1.2 H Absolute Neuts (auto) 2.9 Absolute Lymphs (auto) 1.30 Nucleated RBC % 0 Sodium 140 Potassium 4.2 Chloride 104 Carbon Dioxide 25.7 Anion Gap 10 BUN 18 Creatinine 0.77 Estim Creat Clear Calc 66.02 Est GFR (MDRD) Non-Af 76 BUN/Creatinine Ratio 22.6 H Glucose 210 H Calcium 9.8 Troponin T High Sens 18 H Troponin T Hi Sens 2 Hr 15 H Urine Color Yellow Urine Clarity Clear Urine pH 7.0 Ur Specific [place] 1.010 Urine Protein 15 H Urine Glucose (UA) 250 H Urine Ketones Negative Urine Occult Blood Negative Urine Nitrite Negative Urine Bilirubin Negative Urine Urobilinogen Normal Ur Leukocyte Esterase Negative Urine RBC 0 SEEN Urine WBC 0 SEEN Ur Squamous Epith Cells 0-5 SEEN Urine Bacteria 0 SEEN Urine Mucus 0 SEEN Radiography Diagnostic Testing: Clinical Impression(s) from Imaging Studies Brain CT 08/21/24 08:45 IMPRESSION: There is low-density in the deep white matter on the right and left, consistent with chronic ischemic changes, similar to the prior. No acute intracranial pathology. Reading [facility] Initial EKG: Attestation: I personally reviewed and interpreted this EKG as follows: Comments: Sinus rhythm with ventricular rate of 76 bpm with occasional PACs Discharge Plan Triage Chief Complaint: Hypertension ED Provider: Evon Wilson Dx/Rx/DC Orders Clinical Impression: Headache, Hypertension, Dizziness Instructions: ED Dizziness, Uncertain Cause, ED Hypertension, Established, ED, Migraine (Classical) Prescriptions: New meclizine [Antivert] 25 mg tablet,chewable 25 mg PO TID PRN (Reason: dizziness) Qty: 10 0RF No Action pantoprazole 40 mg tablet,delayed release (DR/EC) 40 mg PO QDAY Qty: 90 2RF metformin 500 mg tablet 500 mg PO UD Patient Comments: diabetes Rx Instructions: 2 TABS AT BREAKFAST; 1 TAB AT LUNCH; AND 2 TABS AT DINNER. hydrochlorothiazide 25 MG tablet 25 mg PO DAILY Patient Comments: blood pressure/diuretic nitroglycerin [Nitrostat] 0.4 mg tablet, sublingual 0.4 mg sublingual Q5M Rx Instructions: do not exceed 3 doses per episode carvedilol [Coreg] 3.125 mg tablet 3.125 mg PO BID Rx Instructions: must administer with a meal/food Januvia 100 mg tablet 100 mg PO DAILY furosemide 80 MG tablet 40 mg PO DAILY PRN (Reason: edema) 30 Days Qty: 0 0RF amlodipine 5 mg tablet 5 mg PO DAILY glimepiride 2 mg tablet 2 mg PO QPM cefadroxil 500 mg capsule 500 mg PO BID lisinopril 40 mg tablet 40 mg PO BID clonidine HCl 0.1 mg tablet 0.1 mg PO BID PRN (Reason: SBP > 170) Qty: 10 0RF Primary Care Provider: Arturo Marie Referrals: Arturo Marie MD [Primary Care Provider] - 3-5 Days Print Language: Yoruba Disposition Disposition: Home, Self Care
[2024-08-21 08:54] LABS: Absolute Neutrophil Count 2.9 X10^3/uL (2.0-7.7); Basophil# 0.06 X10^3/uL; Basophil% 1.2 % (0-1); Eosinophil# 0.16 X10^3/uL; Eosinophils% 3.2 % (0-5); Hematocrit 41.6 % (37-47); Hemoglobin 13.8 g/dL (12.0-15.0); Lymphocyte % 26.3 % (19-41); Mean Corp Hgb Conc 33.2 g/dL (32-36); Mean Corpuscular Hgb 31.9 pg (27.0-32.0); Mean Corpuscular Volume 96.3 fL (81-99); Mean Platelet Vol. 11.6 fl (6.2-12.0); Monocyte# 0.49 X10^3/uL; Monocyte% 9.9 % (0-10); NRBC Flagged by Analyzer 0 % (0-5); Neutrophil # 2.93 X10^3/uL (2.7-7.7); Neutrophil % 59.2 % (47-70); Platelet Count 158 K/mm3 (150-450); RBC Distribution Width CV 13.4 % (11.6-14.6); RBC Distribution Width SD 47.4 fl (35.1-43.9); Red Blood Count 4.32 M/mm3 (4.2-5.4)
[2024-08-21] MEDS: Ketorolac 15 MG/ML Vial 10 MG IV (08:54)
[2024-08-21] MEDS: Metoclopramide 10 MG/2 ML Vial IV (08:54)
[2024-08-21] MEDS: 0.9% Normal Saline (500mL Bag) 500 ML 1000 ML IV (08:55)
[2024-08-21] MEDS: Meclizine HCl 25 MG Tablet PO (08:55)
[2024-08-21 09:01] VITALS: BP 173/74; BP 183/100; BP 184/99; PULSE 74; PULSE 82; PULSE 84
[2024-08-21 09:16] LABS: Bacteria 0 SEEN /hpf (None Seen); Mucous, Urine 0 SEEN /hpf (<or=2+); Red Blood Cells-Urine 0 SEEN /hpf (0-5); White Blood Cells 0 SEEN /hpf (0-5)
[2024-08-21 09:22] LABS: Color, Urine Yellow (Yellow); Glucose, Dipstick 250 mg/dl (Normal); Ketone-Dipstick Negative (Negative); Leukocyte Esterase-Dipstick Negative /ul (Negative); Nitrite-Dipstick Negative (Negative); Occult Blood-Urine Negative /ul (Negative); Protein-Dipstick 15 mg/dl (Negative); Urine Bilirubin Dipstick Negative (Negative); Urine Clarity Clear (Clear); Urine Urobilinogen Normal (Normal)
[2024-08-21 09:22] LABS: Anion Gap 10 (5-15); BUN 18 mg/dL (4-19); BUN/Creat Ratio 22.6 RATIO (10-20); Calcium,Total 9.8 mg/dL (7.6-11.0); Carbon Dioxide 25.7 mmol/L (21.0-32.0); Chloride 104 mmol/L (98-108); Creatinine, Serum 0.77 mg/dL (0.70-1.20); EST Glomerular Filtration Rate 76 (>60); Estimated Creatinine Clearance 66.02 ml/min (50-250); Glucose 210 mg/dL (70-99); Potassium 4.2 mmol/L (3.3-5.1); Sodium Level 140 mmol/L (133-145); Troponin T High Sensitivity 18 ng/L (<=14)
[2024-08-21 09:36] LABS: Squamous Epithelial Cells - UA 0-5 SEEN /hpf (5-10)
[2024-08-21 10:21] VITALS: BP 148/67; PULSE 79; RESP 12; O2SAT 96
[2024-08-21] MEDS: amLODIPine 5 MG Tablet PO (10:22)
[2024-08-21] MEDS: Lisinopril 40 MG Tablet PO (10:22)
[2024-08-21 11:20] LABS: Troponin T High Sens 2 HR 15 ng/L (<=14)
[2024-08-21 11:41] VITALS: BP 130/80; PULSE 84; RESP 16; TEMP 36.8; O2SAT 96
== END 2024-08-21 11:50 | disposition home or self-care (01) ==
PROVIDERS: Emergency Provider Emergency Medicine; PCP Family Medicine; Visit Provider Emergency Medicine
DX: I10 Essential (primary) hypertension (principal); E11.40 Type 2 diabetes mellitus with diabetic neuropathy, unspecified; R42 Dizziness and giddiness; H91.90 Unspecified hearing loss, unspecified ear; E78.5 Hyperlipidemia, unspecified; R51.9 Headache, unspecified; Z79.84 Long term (current) use of oral hypoglycemic drugs; Z79.899 Other long term (current) drug therapy
CPT/HCPCS: 70450; 80048; 81001; 84484; 85025; 93005; 96361; 96374; 96375; 99285; A4216

== ENCOUNTER → 2024-11-15 | Outpatient (CLI) | payer MEDICARE, SELFPAY ==
--- NOTE | 2024-11-15 10:17 | ECHOD_ITS ---
Reason For Study Reason For Study: AORTIC STENOSIS Procedure This was a 2D Doppler, Color Flow transthoracic echocardiogram. Exam performed in department. Left Ventricle Normal LV size. Left ventricular systolic function is normal. The left ventricular ejection fraction is 65 %. No regional wall motion abnormalities noted. Right Ventricle Normal RV size. Normal systolic function. Atria Normal left atrium. Normal right atrium. Mitral Valve Normal mitral valve. Tricuspid Valve Normal tricuspid valve. Mild to moderate (1-2+) tricuspid valve insufficiency. Pulmonary artery systolic pressure is 39 mmHg. Aortic Valve Trisinus/trileaflet aortic valve. Moderate focal aortic valve calcification. Peak aortic valve gradient 40 mmHg. Mean aortic valve gradient 25 mmHg. Moderate aortic stenosis. Mild (1+) aortic valve insufficiency. Pulmonic Valve Normal pulmonic valve. Great Vessels Normal aortic root. The pulmonary artery is normal size. Inferior vena cava collapse with respiration. Pericardium/Pleural No pericardial effusion. MMode/2D Measurements & Calculations LVIDd: 4.4 cm IVSd: 1.7 cm LVOT diam: 1.9 cm LVIDs: 3.0 cm LVPWd: 1.1 cm LVOT area: 2.9 cm2 RVDd: 3.3 cm FS: 30.9 % asc Aorta Diam: 3.7 cm LAV(MOD-bp): 68.0 ml LVAd ap4: 24.9 cm2 LAV(MOD-bp) Indexed: 31.4 ml/m2 LVLd ap4: 8.0 cm LAV(MOD-sp2): 72.0 ml EDV(MOD-sp4): 63.8 ml LAV(MOD-sp4): 54.6 ml EDV(sp4-el): 65.9 ml LVAs ap4: 13.0 cm2 LVLs ap4: 6.7 cm ESV(MOD-sp4): 22.5 ml ESV(sp4-el): 21.2 ml EF(MOD-sp4): 64.8 % EF(sp4-el): 67.8 % LVAd ap2: 22.7 cm2 SV(MOD-sp4): 41.4 ml SV(MOD-sp2): 38.9 ml LVLd ap2: 7.7 cm SI(MOD-sp4): 19.1 ml/m2 SI(MOD-sp2): 18.0 ml/m2 EDV(MOD-sp2): 57.4 ml EDV(sp2-el): 57.1 ml LVAs ap2: 11.2 cm2 LVLs ap2: 6.0 cm ESV(MOD-sp2): 18.5 ml ESV(sp2-el): 17.7 ml EF(MOD-sp2): 67.7 % SV(sp4-el): 44.7 ml Ao sinus diam: 3.[address] Junction: 2.6 cm LA dimension(2D): 3.8 cm LA A4 area: 20.6 cm2 RA A4 area: 12.5 cm2 TAPSE: 2.1 cm Time Measurements MV dec time: 0.21 sec Doppler Measurements & Calculations MV E max shay: 98.2 cm/sec Lat Peak E' Shay: 8.5 cm/sec Med Peak E' Shay: 9.3 cm/sec MV A max shay: 102.7 cm/sec E/E' lat: 11.6 E/E' med: 10.5 MV E/A: 0.96 MV dec slope: 466.6 cm/sec2 Ao V2 max: 315.2 cm/sec AI max shay: 454.2 cm/sec Ao max P.8 mmHg AI max P.5 mmHg Ao V2 mean: 236.1 cm/sec AI dec slope: 319.0 cm/sec2 Ao mean P.5 mmHg AI P1/2t: 417.0 msec Ao V2 VTI: 72.9 cm AV (velocity ratio): 0.43 JACEY(I,D): 1.3 cm2 JACEY(V,D): 1.2 cm2 LV V1 max: 132.2 cm/sec SV(LVOT): 91.3 ml PA V2 max: 88.1 cm/sec LV V1 max P.0 mmHg LV V1 mean P.0 mmHg LV V1 mean: 109.6 cm/sec LV V1 VTI: 31.3 cm TR max shay: 299.7 cm/sec TR max P.9 mmHg ECHO/Echo Complete Interpretation Summary Normal LV size. Left ventricular systolic function is normal. The left ventricular ejection fraction is 65 %. Mild (1+) aortic valve insufficiency. Mean aortic valve gradient 25 mmHg. Moderate aortic stenosis. Ordering Physician: Luigi Washington Referring Physician: Luigi Washington MD Performed By: Lolis Vargas RDCS
--- OUTSIDE RECORDS SUMMARY | 2024-11-15 10:34 | XMS RPT_ITS | CCD ---
Author Organization [facility] Inform ion Partnership [facility] Care Team Providers Care Linoleum Printer Name Role Phone RIDERDEBBIE Unavailable Unavailable MARK TESFAYE Unavailable Unavailable IMCA Unavailable Unavailable Arturo Amaya MD Primary Care Provider Arturo Amaya MD Primary Care Provider Arturo Amaya MD Primary Care Provider Arturo Amaya MD Primary Care Provider Dr. Arturo Amaya Primary Care Provider Dr. Arturo Amaya Referring Provider Dr. Arturo Amaya Other Provider Dr. Juan Shankar Attending Provider Arturo Amaya MD Primary Care Provider Arturo Amaya MD Primary Care Provider Tyrone DING.RITA, Rasheed Unavailable Sharona Bettencourt PA-C Unavailable Dr. Arturo Amaya MD Primary Care Provider Dr. Fer Choudhury MD Attending Provider Dr. Fer Choudhury MD Emergency Provider Dr. Arturo Amaya MD Referring Provider Sadie Cooley Attending Provider Dr. Richard Loo DO Emergency Provider Arturo Amaya MD Primary Care Provider Jose Luis MD, Arturo A Primary Care Provider Tyrone DIRECTOR VIDEO.DIESEL MAINTENANCE TECHNICIAN, Rasheed Unavailable Sg MAKI, Sharona Unavailable Tyrone DIRECTOR VIDEO.DIESEL MAINTENANCE TECHNICIAN, Rasheed Unavailable Sg MAKI, Sharona Unavailable Jose Luis ACOSTA, Dr. Morris Primary Care Provider Dr. Evon Wilson DO Attending Provider Dr. Evon Wilson DO Emergency Provider Jose Luis ACOSTA, Dr. Morris Referring Provider Padmini ACOSTA, Dr. Meyers Attending Provider Jose Luis, Arturo Primary Care Unavailable UngEvon alvarado Attending Unavailable Jose Luis, Arturo Primary Care Unavailable UngurEvon Attending Unavailable Jose Luis, Arturo Primary Care Unavailable Richard Loo Attending Unavailable Jose Luis, Arturo Primary Care Unavailable Fer Choudhury Attending Unavailable Jose Luis, Arturo Primary Care Unavailable Jose Luis, Arturo Referring Unavailable Luigi Washington Attending Unavailable Jose Luis, Arturo Referring Unavailable Jose Luis, Arturo Primary Care Unavailable Sadie Arteaga Attending Unavailable PadminiLuigi mcwilliams Attending Unavailable Jose Luis, Arturo Primary Care Unavailable Padmini Luigi Referring Unavailable JOSE LUIS, ARTURO A Primary Care Unavailable RASHEED CHIN Attending Unavailable JOSE LUIS, ARTURO A Primary Care Unavailable SHARONA BETTENCOURT Attending Unavailable JOSE LUIS, ARTURO A Primary Care Unavailable JOSE LUIS, ARTURO A Referring Unavailable JOSE LUIS, ARTURO A Primary Care Unavailable BETTENCOURT, SHARONA Referring Unavailable JOSE LUIS, ARTURO A Primary Care Unavailable BETTENCOURT, SHARONA Attending Unavailable JOSE LUIS, ARTURO A Primary Care Unavailable BETTNECOURT, SHARONA Referring Unavailable JOSE LUIS, ARTURO A Primary Care Unavailable BETTENCOURT, SHARONA Referring Unavailable JOSE LUIS, ARTURO A Primary Care Unavailable BETTENCOURT, SHARONA Referring Unavailable MALIA SIMONS Attending Unavailable JOSE LUIS, ARTURO A Primary Care Unavailable CHRISTA SHERIDAN Attending Unavailable BETTENCOURT, SHARONA Referring Unavailable JOSE LUIS, ARTURO A Primary Care Unavailable SG, SHARONA Attending Unavailable JOSE LUIS, ARTURO A Primary Care Unavailable BETTENCOURT, SHARONA Attending Unavailable JOSE LUIS, ARTURO A Primary Care Unavailable BETTENCOURT, SHARONA Referring Unavailable JOSE LUISADITI WILLAMSREY A Primary Care Unavailable BETTENCOURT, SHARONA Referring Unavailable JOSE LUISADITI WILLAMSREY A Primary Care Unavailable BETTENCOURT, SHARONA Attending Unavailable JOSE LUISADITI WILLAMSREY A Primary Care Unavailable BETTENCOURT, SHARONA Referring Unavailable JOSE LUIS, ARTURO A Primary Care Unavailable JOSE LUISADITI WILLAMSREY A Primary Care Unavailable BETTENCOURT, SHARONA Referring Unavailable JOSE LUIS, ARTURO A Primary Care Unavailable TESTRAKE, MALIA Referring Unavailable JOSE LUIS, ARTURO A Primary Care Unavailable TESTRAKE, MALIA Referring Unavailable TESTRAKE, MALIA Attending Unavailable JOSE LUISADITI WILLAMSREY A Primary Care Unavailable BETTENCOURT, SHARONA Referring Unavailable JOSE LUIS, ARTURO A Primary Care Unavailable JOSE LUIS, ARTURO A Primary Care Unavailable JOSE LUIS, ARTURO A Primary Care Unavailable BETTENCOURT, SHAORNA Referring Unavailable Allergies Allergy Classification Reported Allergen(s) Allergy Type Date of Onset Reaction(s) Facility (20 sources) celecoxib; Translations: [CELECOXIB] Drug Allergy 5 Unknown [facility] Repository (20 sources) codeine; Translations: [CODEINE] Drug Allergy 4 Rash [facility] Repository (20 sources) niacin; Translations: [NIACIN] Drug Allergy 4 Rash, Unknown [facility] Repository (20 sources) Penicillins; Translations: [PENICILLINS] Propensity to adverse reactions (disorder) 4 [facility] Repository (20 sources) predniSONE; Translations: [PREDNISONE] Drug Allergy 4 [facility] Repository (20 sources) Sulfonamides (Antibiotic); Translations: [SULFA (SULFONAMIDE ANTIBIOTICS)] Propensity to adverse reactions (disorder) 4 [facility] Repository (20 sources) Acetaminophen; Translations: [ACETAMINOPHEN] Drug Allergy 2 Other: See Comments [facility] (8 sources) HYDROcodone Drug Allergy 2 Other [facility] (8 sources) Morphine Drug Allergy 2 Other [facility] (20 sources) pioglitazone; Translations: [PIOGLITAZONE] Drug Allergy 3 Other: See Comments [facility] Work Phone: (1 source) Acetaminophen Drug Allergy 5 [facility] Repository (1 source) HYDROcodone Drug Allergy 5 [facility] Repository (1 source) Morphine Drug Allergy 5 [facility] Repository (1 source) pioglitazone Drug Allergy 5 [facility] Repository Medications Current Medications Medication Drug Class(es) Dates Sig (Normalized) Sig (Original) acetaminophen 500 mg oral tablet (20 sources) Start: 10-29-2024 take 1 tablet by mouth every six hours as needed Acetaminophen (Tylenol Extra Strength) 500 mg tablet Active 500 mg PO EVERY 6 HOURS as needed October 29, 2024 12:00am Start: 04-01-2018 End: 04-22-2024 take 2 tablets by mouth three times daily Acetaminophen (Tylenol Extra Strength) 500 MG tablet Discontinued 1000 mg PO THREE TIMES A DAY 0 7 0 August 14, 2023 1:04pm April 22, 2024 11:47pm End: 08-20-2023 take 1 tablet by mouth every six hours ACETAMINOPHEN (TYLENOL ARTHRITIS ORAL) Take 1 tablet by mouth every 6 hours. 08/20/2023 Discontinued End: 08-20-2023 take 1 tablet by mouth every six hours ACETAMINOPHEN (TYLENOL ARTHRITIS ORAL) Take 1 tablet by mouth every 6 hours. 0 08/20/2023 Discontinued take 1 tablet by danielito th every six hours ACETAMINOPHEN (TYLENOL ARTHRITIS ORAL) Take 1 tablet by mouth every 6 hours. 0 Active Comment on above: Take 1 tablet by danielito th every 6 hours. alendronic acid 70 mg oral tablet (20 sources) Bisphosphonate Start: 05-30-19 take 1 tablet by mouth every week in the morning alendronate (FOSAMAX) 70 mg tablet Take 1 tablet by mouth one time a week. In AM with cup of water on empty stomach. Nothing else by mouth and stay upright for 30 min. 12 tablet 3 05/30/2024 Active amLODIPine 5 mg oral tablet (20 sources) Dihydropyridine Calcium Channel Caleb Start: 04-15-19 End: 04-19-19 take 1 tablet by mouth once daily amLODIPine (NORVASC) 5 mg tablet Indications: Essential hypertension Take 1 tablet by mouth once daily. 90 tablet 1 10/21/2024 04/19/2025 Active Start: 10-10-2022 End: 04-22-2024 take 1 tablet by mouth once daily Amlodipine (Norvasc) 2.5 mg tablet Discontinued 2.5 mg PO DAILY October 10, 2022 12:00am April 22, 2024 10:45pm blood pressure Start: 04-13-2021 End: 06-04-2022 take 1 tablet by mouth once daily amLODIPine (NORVASC) 2.5 mg tablet Take 1 tablet by mouth once daily. 30 tablet 2 04/13/2021 08/18/2021 Discontinued Comment on above: Take 1 tablet by danielito th once daily. Blood-Glucose Meter (20 sources) Start: 06-11-2024 Blood-Glucose Meter DISPENSE ONE METER. Insulin use. E11.9 1 Each 06/11/2024 Active Blood-Glucose Meter,Continuous (FREESTYLE KIRK 3 READER) misc (20 sources) Start: 08-20-2023 Blood-Glucose Meter,Continuous (FREESTYLE KIRK 3 READER) misc Check blood sugars 3-4 times a day Dx: E11.65 no insulin 1 Each 08/20/2023 Active Start: 08-20-2023 Blood-Glucose Meter,Continuous (FREESTYLE KIRK 3 READER) misc Check blood sugars 3-4 times a day Dx: E11.65 no insulin 1 Each 0 08/20/2023 Active Blood-Glucose Sensor (FREESTYLE KIRK 3 SENSOR) em (20 sources) Start: 08-20-2023 Blood-Glucose Sensor (FREESTYLE KIRK 3 SENSOR) em Apply a new sensor once every 2 weeks. Check blood sugars 3-4 times a day Dx: E11.65 no insulin 2 Each 11 08/20/2023 Active busPIRone hydrochloride 5 mg oral tablet (7 sources) Start: 09-23-2024 End: 10-21-2024 take 1 tablet by mouth twice daily Buspirone 5 mg tablet Active 5 mg PO TWICE A DAY October 29, 2024 12:00am carvedilol 6.25 mg oral tablet (20 sources) alpha-Adrenerg ic Caleb, beta-Adrenergi c Caleb Start: 04-29-2024 take 1 tablet by mouth twice daily at mealtime carvedilol (COREG) 6.25 mg tablet Take 1 tablet by mouth two times a day with meals. 180 tablet 1 04/29/2024 Active Start: 04-01-2022 End: 10-10-2024 take 1 tablet by mouth twice daily at mealtime Carvedilol (Coreg) 3.125 mg tablet Discontinued 3.125 mg PO TWICE A DAY October 10, 2022 12:00am October 10, 2024 10:38am BP must administer with a meal/food Start: 03-21-2021 End: 03-29-2022 take 1 tablet by mouth twice daily carvedilol (COREG) 3.125 mg tablet Take 1 tablet by mouth twice daily. 60 tablet 5 03/21/2021 10/24/2021 Discontinued Comment on above: Take 1 tablet by [facility] twice daily. cefadroxil 500 mg oral capsule (11 sources) Cephalosporin Antibacterial Start: 5 End: take 1 capsule by mouth twice daily cefADROxil (DURICEF) 500 mg capsule Take 1 capsule by mouth two times a day for 5 days. 10 capsule 10/21/2024 10/26/2024 Active Start: 04-15-2024 End: 10-10-2024 take 1 capsule by mouth twice daily Cefadroxil 500 mg capsule Discontinued 500 mg PO TWICE A DAY April 22, 2024 1:00am October 10, 2024 10:40am Start: 03-10-2022 End: 03-24-2022 take 1 capsule by mouth twice daily cefADROxil (DURICEF) 500 mg capsule Take 1 capsule by mouth twice daily for 7 days. 14 capsule 0 03/17/2022 03/24/2022 Active Comment on above: Take 1 capsule by [facility] twice daily for 7 days. cephalexin 500 mg oral capsule (9 sources) Cephalosporin Antibacterial Start: 4 End: take 1 capsule by mouth four times daily cephALEXin (KEFLEX) 500 mg capsule Indications: Pain, dental Take 1 capsule by mouth four times daily for 5 days. 20 capsule 12/21/2023 12/26/2023 Active Start: 12-07-2022 End: 04-22-2024 take 1 capsule by mouth every six hours Cephalexin 500 mg capsule Discontinued 500 mg PO EVERY 6 HOURS 40 0 December 07, 2022 12:00am April 22, 2024 11:47pm Start: 09-12-2022 End: 09-19-2022 take 1 capsule by mouth three times daily cephALEXin (KEFLEX) 500 mg capsule Indications: Cellulitis of skin Take 1 capsule by mouth three times daily for 7 days. 21 capsule 0 09/12/2022 09/19/2022 Start: 11-18-2021 End: 11-25-2021 take 1 capsule by mouth twice daily cephALEXin (KEFLEX) 500 mg capsule Indications: Burning with urination Take 1 capsule by mouth twice daily for 7 days. 14 capsule 0 11/18/2021 11/25/2021 Active Comment on above: Take 1 capsule by mo uth twice daily for 7 days. Take 1 capsule by mo uth three times daily for 7 days. cholecalciferol 0.05 mg oral capsule (20 sources) Vitamin D Start: 10-11-19 take 1 capsule by mouth once daily Cholecalciferol (Vitamin D3) 50 mcg (2,000 unit) capsule Active 150 ug PO daily October 10, 2024 12:00am Start: 01-11-2020 End: 04-22-2024 take 2 capsules by mouth once daily Cholecalciferol (Vitamin D3) 2,000 UNIT capsule Discontinued 4000 U PO DAILY January 11, 2020 12:00am April 22, 2024 11:46pm supplement Start: 01-11-2020 take 4000 [IU] by mo uth once daily Cholecalciferol (Vitamin D3) Active 4000 UNIT PO DAILY January 11, 2020 12:00am Start: 08-28-2018 take 3 capsules by m outh once daily Cholecalciferol, Vitamin D3, 2,000 unit cap Indications: Vitamin D deficiency Take 3 capsules by mouth once daily. 0 08/28/2018 Active Comment on above: Take 3 capsules by m outh once daily. ciprofloxacin 500 mg oral tablet (2 sources) Quinolone Antimicrobial Start: 12-10-19 End: 12-17-19 take 1 tablet by mouth twice daily ciprofloxacin HCl (CIPRO) 500 mg tablet Take 1 tablet by mouth twice daily for 10 days. 20 tablet 0 12/09/2022 12/09/2022 Discontinued Comment on above: Take 1 tablet by danielito th twice daily for 10 days. Take 1 tablet by danielito th twice daily for 7 days. clotrimazole 10 mg/ml topical cream (5 sources) Azole Antifungal Start: 09-20-19 End: 09-27-19 clotrimazole (LOTRIMIN) 1 % cream Apply to affected area twice daily for 7 days. 28 g 0 09/19/2022 09/26/2022 Active Comment on above: Apply to affected ar ea twice daily for 7 days. doxycycline monohydrate 100 mg oral tablet (14 sources) Tetracycline-class Drug Start: 11-17-19 End: 11-24-19 take 1 tablet by mouth twice daily doxycycline monohydrate 100 mg tablet Indications: Skin infection Take 1 tablet by mouth two times a day for 7 days. 14 tablet 11/17/2023 11/24/2023 Active Start: 08-10-2023 End: 08-17-2023 take 1 tablet by mouth twice daily doxycycline monohydrate 100 mg tablet Indications: Wound of right lower extremity, initial encounter Take 1 tablet by mouth two times a day for 7 days. 14 tablet 0 08/10/2023 08/17/2023 Active Start: 12-05-2022 End: 12-15-2022 take 1 tablet by mouth twice daily doxycycline (VIBRA-TABS) 100 mg tablet Take 1 tablet by mouth twice daily for 10 days. 20 tablet 0 12/05/2022 12/15/2022 Active Start: 09-19-2022 End: 10-01-2022 take 1 tablet by mouth twice daily doxycycline (VIBRA-TABS) 100 mg tablet Take 1 tablet by mouth twice daily for 5 days. 10 tablet 0 09/26/2022 10/01/2022 Active Comment on above: Take 1 tablet by danielito twice daily for 7 days. Take 1 tablet by danielito twice daily for 5 days. Take 1 tablet by danielito th twice daily for 10 days. fluconazole 150 mg oral tablet (12 sources) Azole Antifungal Start: 08-07-2024 End: 08-07-2024 fluconazole (DIFLUCAN) 150 mg tablet Indications: Vaginal yeast infection Take 1 tablet by mouth one time only for 1 dose. Repeat in 3 days as needed. 2 tablet 08/07/2024 08/07/2024 Active Start: 03-29-2024 End: 03-29-2024 fluconazole (DIFLUCAN) 150 m g tablet Indications: Vaginal candidiasis Take 1 tablet by mouth one time only for 1 dose. Repeat in 3 days as needed. 2 tablet 03/29/2024 03/29/2024 Start: 12-05-2022 End: 12-05-2022 fluconazole (DIFLUCAN) 150 m g tablet Take 1 tablet by mouth one time only for 1 dose. Repeat in 3 days as needed. 2 tablet 0 12/05/2022 12/05/2022 Start: 09-19-2022 End: 09-19-2022 fluconazole (DIFLUCAN) 150 m g tablet Take 1 tablet by mouth one time only for 1 dose. Repeat in 3 days as needed. 2 tablet 0 09/19/2022 09/19/2022 Start: 02-21-2013 End: 05-13-2013 take 1 tablet by mouth once daily Fluconazole (Diflucan) 150 MG tablet Discontinued 150 mg PO DAILY 3 0 February 21, 2013 1:00am May 13, 2013 3:47am Comment on above: Take 1 tablet by danielito th one time only for 1 dose. Repeat in 3 days as needed. furosemide 40 mg oral tablet (20 sources) Loop Diuretic Start: 08-20-2023 End: 04-15-2024 Furosemide 40 mg tablet Active 40 mg PO as needed October 10, 2024 12:00am Start: 08-14-2023 End: 10-10-2024 Furosemide 80 MG tablet Disc ontinued 40 mg PO DAILY as needed for edema 0 30 0 August 14, 2023 1:04pm October 10, 2024 10:39am Start: 10-24-2021 End: 08-20-2023 furosemide (LASIX) 80 mg tab let Take 0.5 tablets by mouth as needed. 30 tablet 2 10/24/2021 08/20/2023 Discontinued Start: 02-01-2018 End: 08-14-2023 take 1 tablet by mouth once daily as needed for edema Furosemide 80 MG tablet Discontinued 80 mg PO DAILY as needed for edema February 01, 2018 12:00am August 14, 2023 1:04pm Comment on above: Take by mouth as nee ded. Take 0.5 tablets by mouth as needed. glimepiride 4 mg oral tablet (20 sources) Sulfonylurea Start: take 1 tablet by mouth once daily at dinner glimepiride (AMARYL) 4 mg tablet Take 1 tablet by mouth daily with dinner. 90 tablet 09/10/2024 Active Start: 10-10-2022 End: 10-10-2024 take 1 tablet by mouth once daily in the evening Glimepiride 2 mg tablet Discontinued 2 mg PO EVERY EVENING April 22, 2024 1:00am October 10, 2024 10:37am Start: 12-26-2021 End: 03-06-2022 take 1 tablet by mouth once daily at dinner glimepiride (AMARYL) 2 mg tablet Take 1 tablet by mouth daily with dinner. 30 tablet 2 03/06/2022 Active Start: 11-22-2021 take 1 tablet by danielito th once daily at dinner glimepiride (AMARYL) 2 mg tablet Take 1 tablet by mouth daily with dinner. 30 tablet 2 11/22/2021 Active Start: 07-05-2017 End: 04-22-2024 take 1 tablet by mouth twice daily Glimepiride 4 mg tablet Discontinued 4 mg PO TWICE A DAY July 05, 2017 9:15am April 22, 2024 10:45pm DIABETES Start: 04-22-2014 End: 07-05-2017 take 1 tablet by mouth once daily Glimepiride 4 MG tablet Discontinued 4 mg PO DAILY April 22, 2014 1:00am July 05, 2017 9:16am Comment on above: Take 1 tablet by danielito th twice daily with meals. Take 1 tablet by danielito th daily with dinner. hydroCHLOROthiazide 25 mg oral tablet (20 sources) Thiazide Diuretic Start: 018 End: 025 take 1 tablet by mouth once daily hydroCHLOROthiazide 25 mg tablet Take 1 tablet by mouth once daily. 90 tablet 1 04/15/2024 Active Start: 04-22-2014 End: 04-01-2018 Hydrochlorothiazide 25 MG ta blet Discontinued 12.5 mg PO DAILY 30 April 22, 2014 1:00am April 01, 2018 7:10pm Start: 04-22-2014 End: 04-01-2018 take 12.5 mg by mouth once daily Hydrochlorothiazide Discontinued 12.5 MG PO DAILY April 22, 2014 1:00am April 01, 2018 7:10pm Comment on above: Take 1 tablet by danielito th once daily. ammonium lactate 120 mg/ml topical cream (5 sources) Start: 10-21-2024 ammonium lactate (LAC-HYDRIN) 12 % cream Apply to affected area as needed. 290 g 3 10/21/2024 Active Start: 10-21-2024 End: 10-21-2024 ammonium lactate (LAC-HYDRIN FIVE) 5 % lotn Apply to affected area as needed. 230 g 1 10/21/2024 10/21/2024 Discontinued levoFLOXacin 500 mg oral tablet (3 sources) Quinolone Antimicrobial Start: 03-06-2022 End: 03-13-2022 take 1 tablet by mouth once daily levoFLOXacin (LEVAQUIN) 500 mg tablet Take 1 tablet by mouth once daily for 7 days. 7 tablet 0 03/06/2022 03/13/2022 Active Comment on above: Take 1 tablet by [facility] once daily for 7 days. lisinopril 40 mg oral tablet (20 sources) Angiotensin Converting Enzyme Inhibitor Start: 03-06-2022 End: 04-15-2024 take 1 tablet by mouth twice daily Lisinopril 40 mg tablet Active 40 mg PO TWICE A DAY April 22, 2024 1:00am Start: 01-28-2013 End: 10-10-2022 take 1 tablet by mouth once daily Lisinopril 40 MG tablet Discontinued 40 mg PO DAILY January 28, 2013 12:00am October 10, 2022 1:59pm blood pressure Comment on above: Take 1 tablet by [facility] once daily. Take 1 tablet by [facility] twice daily. meclizine hydrochloride 25 mg chewable tablet (1 source) Antiemetic Start: 5 take 1 tablet by mouth three times daily as needed for dizziness Meclizine (Antivert) 25 mg tablet,chewable Active 25 mg PO THREE TIMES A DAY as needed for dizziness 10 0 August 21, 2024 11:28am metFORMIN hydrochloride 500 mg oral tablet (20 sources) Biguanide Start: 8 End: 5 take 2 tablets by mouth at breakfast metFORMIN (GLUCOPHAGE) 500 mg tablet Take by mouth. take 2 tabs w/breakfast;1 tab with lunch and TWO tabs w/ dinner 150 tablet 09/10/2024 Active Start: 01-28-2013 End: 07-05-2017 take 1 tablet by mouth three times daily Metformin 500 MG tablet Discontinued 500 mg PO THREE TIMES A DAY January 28, 2013 12:00am July 05, 2017 9:16am Comment on above: Take by mouth. take 2 tabs w/breakfast;1 tab with lunch and TWO tabs w/ dinner nitroglycerin 0.4 mg sublingual tablet (20 sources) Nitrate Vasodilator Start: 10-10-2022 Nitroglycerin (Nitrostat) 0.4 mg tablet, sublingual Active 0.4 MG SL Q5M October 10, 2022 12:00am do not exceed 3 doses per episode Start: 01-02-2020 End: 08-20-2023 nitroglycerin sublingual (NI TROQUICK) 0.4 mg SL tablet Dissolve 1 tablet under the tongue as needed. FOR CHEST PAIN. IF NO RELIEF CALL 911 25 tablet 1 08/20/2023 Active Comment on above: Dissolve 1 tablet un anjum the tongue as needed. FOR CHEST PAIN. IF NO RELIEF CALL 911 pantoprazole 40 mg delayed release oral tablet (2 sources) Proton Pump Inhibitor Start: take 1 tablet by mouth once daily Pantoprazole 40 mg tablet,delayed release (DR/EC) Active 40 mg PO daily 90 2 April 30, 2024 1:00am sertraline 50 mg oral tablet (7 sources) Serotonin Reuptake Inhibitor Start: 5 End: 5 take 1 tablet by mouth once daily Sertraline 50 mg tablet Active 50 mg PO daily October 29, 2024 12:00am SITagliptin 100 mg oral tablet (20 sources) Dipeptidyl Peptidase 4 Inhibitor Start: 3 End: 5 take 1 tablet by mouth once daily SITagliptin phosphate (JANUVIA) 100 mg tablet Take 1 tablet by mouth once daily. 90 tablet 1 04/15/2024 Active Comment on above: Take 1 tablet by danielito th once daily. Completed/Discontinued Medications Medication Drug Class(es) Dates Sig (Normalized) Sig (Original) acetaminophen 325 mg / HYDROcodone bitartrate 5 mg oral tablet (16 sources) Opioid Agonist Start: 10-05-2021 End: 10-10-2022 Hydrocodone-Acetami nophen 1 TABLET tablet Discontinued 1 {tbl} PO EVERY 4 HOURS NEEDED as needed for Pain 10 2 0 October 05, 2021 October 10, 2022 1:58pm Dental abscess Periapical abscess without sinus Start: 10-05-2021 End: 10-10-2022 take 1 tablet by mouth every four hours as needed Hydrocodone-Acetaminophen Discontinued 1 TABLET PO EVERY 4 HOURS NEEDED 10 2 October 05, 2021 October 10, 2022 1:58pm Start: 01-28-2013 End: 02-19-2013 Hydrocodone-Acetaminophen 1 TABLET tablet Discontinued 1 {tbl} PO EVERY 4 HOURS NEEDED as needed for Pain 30 0 January 28, 2013 12:00am February 19, 2013 8:18pm Start: 01-28-2013 End: 02-19-2013 take 1 tablet by mouth every four hours as needed Hydrocodone-Acetaminophen Discontinued 1 TABLET PO EVERY 4 HOURS NEEDED January 28, 2013 12:00am February 19, 2013 8:18pm aspirin 81 mg chewable tablet (20 sources) Platelet Aggregation Inhibitor, Nonsteroidal Anti-inflammatory Drug Start: 10-10-2022 End: 04-22-2024 Aspirin (Jalen Chewable Aspirin) 81 mg tablet,chewable Discontinued 1 {tbl} PO DAILY October 10, 2022 12:00am April 22, 2024 11:47pm blood thinner Start: 10-10-2022 take 1 tablet by danielito th once daily Aspirin (Jalen Chewable Aspirin) 81 mg tablet,chewable Active 1 TABLET PO DAILY October 10, 2022 12:00am Start: 04-22-2014 End: 07-05-2017 take 1 tablet by mouth once daily Aspirin 81 MG tablet,chewable Discontinued 81 mg PO DAILY@0800 30 0 April 22, 2014 1:00am July 05, 2017 9:14am End: 03-29-2024 take 1 tablet by mouth once daily aspirin, enteric coated (ASPIRIN, ENTERIC COATED) 81 mg EC tablet Take 81 mg by mouth once daily. Take one tablet daily 03/29/2024 Discontinued (Course of therapy completed) take 1 tablet by mouth once aspi rin 325 mg tablet Take 325 mg by mouth one time only. Taken 11/15/2021 pre heart cath 0 Active Comment on above: Take 325 mg by mouth one time only. Taken 11/15/2021 pre heart cath Take 81 mg by mouth once daily. Take one tablet daily atropine sulfate 0.025 mg / diphenoxylate hydrochloride 2.5 mg oral tablet (8 sources) Anticholinergic, Cholinergic Muscarinic Antagonist, Antidiarrheal Start: 07-03-2016 End: 07-05-2017 Diphenoxylate-Atropine 1 EACH tablet Discontinued 1 NMA PO EVERY 6 HOURS NEEDED as needed for Diarrhea 6 0 July 03, 2016 8:55am July 05, 2017 9:14am Start: 07-03-2016 End: 07-05-2017 Diphenoxylate-Atropine Disco ntinued 1 EACH PO EVERY 6 HOURS NEEDED July 03, 2016 8:55am July 05, 2017 9:14am Blood Pressure Cuff - Home U se (20 sources) Start: 05-20-2015 End: 03-29-2024 Blood Pressure Cuff - Home U se Indications: Essential hypertension BLOOD PRESSURE CUFF FOR HOME USE. DX: LABILE BLOOD PRESSURE 1 Device 0 05/20/2015 03/29/2024 Discontinued (Other) Start: 05-20-2015 Blood Pressure Cuff - Home Use Indications: Essential hypertension BLOOD PRESSURE [facility] FOR HOME USE. DX: LABILE BLOOD PRESSURE 1 Device 0 05/20/2015 Active Comment on above: BLOOD PRESSURE CU[facility] FOR HOME USE. DX: LABILE BLOOD PRESSURE cefuroxime 500 mg oral tablet (8 sources) Cephalosporin Antibacterial Start: 02-22-20 13 End: 05-13-19 14 take 1 tablet by mouth twice daily Cefuroxime Axetil (Ceftin) 500 MG tablet Discontinued 500 mg PO TWICE A DAY 5 0 February 21, 2013 1:00am May 13, 2013 3:47am clindamycin 150 mg oral capsule (8 sources) Lincosamide Antibacterial Start: 10-06-19 22 End: 10-11-19 23 take 2 capsules by mouth four times daily Clindamycin Hcl 150 MG capsule Discontinued 300 mg PO 4 TIMES DAILY 80 0 October 05, 2021 12:00am October 10, 2022 1:58pm Start: 10-05-2021 End: 10-10-2022 take 300 mg by mouth four times daily Clindamycin Hcl Discontinued 300 MG PO 4 TIMES DAILY 80 October 05, 2021 12:00am October 10, 2022 1:58pm cloNIDine hydrochloride 0.1 mg oral tablet (2 sources) Central alpha-2 Adrenergic Agonist Start: 04-22-2024 End: 10-29-2024 Clonidine Hcl 0.1 mg tablet Discontinued 0.1 mg PO TWICE A DAY as needed for SBP > 170 10 0 April 23, 2024 12:30am October 29, 2024 11:31am famotidine 20 mg oral tablet (16 sources) Histamine-2 Receptor Antagonist Start: 06-30-2016 End: 07-05-2017 take 1 tablet by mouth once daily as needed for gastroesophageal reflux disease Famotidine 20 MG tablet Discontinued 20 mg PO DAILY as needed for gerd June 30, 2016 4:08pm July 05, 2017 9:14am Start: 04-22-2014 End: 06-30-2016 take 1 tablet by mouth twice daily Famotidine 20 MG tablet Discontinued 20 mg PO TWICE A DAY 60 0 April 22, 2014 1:00am June 30, 2016 4:08pm ibuprofen 200 mg oral tablet (20 sources) Nonsteroidal Anti-inflammatory Drug Start: 04-01-2018 End: 04-22-2024 Ibuprofen 200 MG tablet Discontinued 200 mg PO NEEDED as needed for Pain April 01, 2018 1:00am April 22, 2024 11:47pm Comment on above: Take by mouth. 3 ml insulin glargine 100 unt/ml pen injector (20 sources) Insulin Analog Start: 10-10-2024 End: 10-29-2024 Insulin Glargine (Lantus Solostar U-100 Insulin) 100 unit/mL (3 mL) insulin pen Discontinued 10 U SC AT BEDTIME October 10, 2024 12:00am October 29, 2024 11:30am Start: 04-17-2024 End: 06-11-2024 inject 10 [IU] by subcutaneous injection once daily at bedtime insulin glargine (LANTUS SOLOSTAR U-100 INSULIN) 100 unit/mL (3 mL) Indications: Uncontrolled type 2 diabetes mellitus with hyperglycemia (HCC) Inject 10 Units subcutaneously daily at bedtime. 9 Each 3 06/11/2024 Active lidocaine 0.05 mg/mg medicated patch (20 sources) Antiarrhythmic, Amide Local Anesthetic Start: 05-01-2021 End: 10-10-2022 Lidocaine (Lidoderm) 5 % adhesive patch,medicated Discontinued 1 NMA TOPICAL DAILY 6 May 01, 2021 1:00am October 10, 2022 1:59pm leave on most painful area for up to 12 hrs Comment on above: APPLY 1 PATCH TOPICALLY ONCE DAILY TO MO ST PAINFUL AREA. LEAVE ON FOR 12 HOURS AND REMOVE FOR 12 HOURS. metoprolol tartrate 25 mg oral tablet (20 sources) beta-Adrenergic Caleb Start: 10-23-2022 End: 08-20-2023 take 1 tablet by mouth twice daily metoprolol tartrate, short acting, (LOPRESSOR) 25 mg tablet Take 1 tablet by mouth twice daily. 180 tablet 0 10/23/2022 08/20/2023 Discontinued (Other) Start: 04-01-2018 End: 08-14-2023 take 1 tablet by mouth once daily Metoprolol Succinate (Toprol Xl) 25 MG tablet extended release 24 hr Discontinued 25 mg PO DAILY April 01, 2018 1:00am August 14, 2023 1:04pm blood pressure Comment on above: Take 1 tablet by danielito th twice daily. omega-3 fatty acids 1,000 mg cap (20 sources) Start: 08-28-2018 End: 10-10-2022 take 2 capsules by mouth once daily omega-3 fatty acids 1,000 mg cap Take 2 capsules by mouth once daily. 08/28/2018 10/10/2022 Discontinued Start: 08-28-2018 take 2 capsules by m outh once daily omega-3 fatty acids 1,000 mg cap Take 2 capsules by mouth once daily. 0 08/28/2018 Active Comment on above: Take 2 capsules by m outh once daily. oxybutynin chloride 5 mg oral tablet (20 sources) Cholinergic Muscarinic Antagonist Start: End: take 0.5 tablet by mouth twice daily oxybutynin (DITROPAN) 5 mg tablet Take 0.5 tablets by mouth twice daily. 30 tablet 1 09/27/2022 04/15/2024 Discontinued Start: 09-27-2022 End: 09-27-2022 take 1 tablet by mouth twice daily oxybutynin (DITROPAN) 2.5 mg tablet Take 1 tablet (2.5 mg) by mouth twice daily. 60 tablet 5 09/27/2022 09/27/2022 Discontinued Start: 09-26-2022 take 1 tablet by danielito th once daily oxybutynin XL (DITROPAN XL) 5 mg 24 hr tablet Take 1 tablet by mouth once daily. 30 tablet 5 09/26/2022 Active Comment on above: Take 1 tablet by danielito th once daily. Take 0.5 tablets by mouth twice daily. Take 1 tablet (2.5 m g) by mouth twice daily. pimecrolimus 10 mg/ml topical cream (20 sources) Calcineurin Inhibitor Immunosuppressant Start: 06-22-19 End: 08-20-19 pimecrolimus (ELIDEL) 1 % cream Apply to affected area twice daily. 30 g 0 06/21/2021 08/20/2023 Discontinued Comment on above: Apply to affected ar ea twice daily. pioglitazone 30 mg oral tablet (20 sources) Peroxisome Proliferator Receptor alpha Agonist, Peroxisome Proliferator Receptor gamma Agonist, Thiazolidinedione Start: 09-09-19 End: 07-04-19 take 1 tablet by mouth once daily pioglitazone (ACTOS) 30 mg tablet Take 1 tablet by mouth once daily. 90 tablet 1 03/06/2022 07/03/2022 Discontinued (Adverse Reaction) Start: 03-23-2021 End: 09-08-2021 take 1 tablet by mouth once daily pioglitazone (ACTOS) 15 mg tablet Take 1 tablet by mouth once daily. 30 tablet 5 03/23/2021 09/08/2021 Discontinued Comment on above: Take 1 tablet by danielito once daily. polyethylene glycol 3350 71404 mg powder for oral solution (19 sources) Osmotic Laxative Start: 09-25-2022 End: 08-20-2023 polyethylene glycol 3350 (MIRALAX) 17 gram packet Take 1 Packet by mouth once daily. Dissolve dose in 4 - 8 ounces of liquid and take as directed. 14 Packet 0 09/25/2022 08/20/2023 Discontinued Comment on above: Take 1 Packet by danielito once daily. Dissolve dose in 4 - 8 ounces of liquid and take as directed. Problems Active Problems Problem Classification Problem Date Documented Da te Episodic/Chronic Abdominal hernia (20 sources) Diaphragmatic hernia; Translations: [Diaphragmatic hernia without obstruction or gangrene] 07-13-2014 Episodic Acquired foot deformities (1 source) Hammer toe; Translations: [Other hammer toe(s) (acquired), right foot] 06-02-2024 Chronic Acute and unspecified renal failure (8 sources) Injury of kidney; Translations: [Acute kidney failure, unspecified] 04-01-2018 Episodic Adjustment disorders (20 sources) Adjustment disorder with depressed mood; Translations: [Adjustment disorder with depressed mood] Onset: 0 04-13-2020 Chronic Anxiety disorders (20 sources) Generalized anxiety disorder; Translations: [Generalized anxiety disorder] Onset: 0 04-13-2020 Chronic Cardiac dysrhythmias (20 sources) Cardiac arrhythmia; Translations: [Cardiac arrhythmia, unspecified] Onset: 9 11-08-2018 Chronic Cardiac dysrhythmias (12 sources) Palpitations; Translations: [Palpitations] 11-05-2021 Episodic Coagulation and hemorrhagic disorders (8 sources) Thrombocytopenic disorder; Translations: [Thrombocytopenia, unspecified] 04-01-2018 Chronic Conditions associated with dizziness or vertigo (1 source) Dizziness; Translations: [Dizziness and giddiness] 08-29-2024 Episodic Congestive heart failure; nonhypertensive (20 sources) Diastolic heart failure; Translations: [Unspecified diastolic (congestive) heart failure] Onset: 3 07-03-2022 Chronic Coronary atherosclerosis and other heart disease (1 source) Atherosclerotic heart disease of [place] coronary artery without angina pectoris Onset: 7 Chronic Diabetes mellitus with complications (20 sources) Type 2 diabetes mellitus; Translations: [Type 2 diabetes mellitus with diabetic neuropathy, unspecified] Onset: 8 04-10-2016 Chronic Diabetes mellitus without complication (14 sources) Diabetes mellitus; Translations: [Type 2 diabetes mellitus without complications] 04-01-2018 Chronic Disorders of lipid metabolism (20 sources) Mixed hyperlipidemia; Translations: [Mixed hyperlipidemia] Onset: 0 06-28-2009 Chronic Disorders of teeth and jaw (17 sources) Dental caries; Translations: [Dental caries, unspecified] 10-13-2021 Episodic E Codes: Fall (8 sources) Accidental fall ; Translations: [Unspecified fall, initial encounter] 11-15-2022 Episodic Esophageal disorders (20 sources) Lesion of esophagus; Translations: [Esophageal obstruction] Onset: 6 06-28-2009 Chronic Esophageal disorders (1 source) Esophageal disorders; Translations: [Gastroesophageal reflux disease with esophagitis without hemorrhage] Onset: 6 Essential hypertension (20 sources) Essential hypertension; Translations: [Essential (primary) hypertension] Onset: 5 04-23-2015 Chronic Fluid and electrolyte disorders (18 sources) Metabolic acidosis; Translations: [Metabolic acidosis] Onset: 5 04-01-2018 Episodic Genitourinary symptoms and ill-defined conditions (2 sources) Urge incontinence of urine; Translations: [Urge incontinence] 03-29-2024 Chronic Headache; including migraine (2 sources) New daily persistent headache; Translations: [New daily persistent headache (NDPH)] Chronic Headache; including migraine (9 sources) Headache; Translations: [Headache] 12-07-2022 Episodic Heart valve disorders (20 sources) Nonrheumatic aortic (valve) stenosis; Translations: [Aortic valve disorders] Onset: 6 08-23-2020 Chronic Hypertension with complications and secondary hypertension (1 source) Secondary hypertension, unspecified; Translations: [Secondary hypertension, unspecified] Onset: 5 Chronic Immunizations and screening for infectious disease (1 source) Encounter for immunization; Translations: [Encounter for immunization] Onset: 5 Episodic Miscellaneous mental health disorders (1 source) Insomnia disorder related to another mental disorder; Translations: [Insomnia due to other mental disorder] 09-10-2024 Chronic Mood disorders (12 sources) Depressive disorder; Translations: [Depression] Onset: 5 01-13-2020 Chronic Mycoses (6 sources) Candidiasis of vagina; Translations: [Vaginal yeast infection] Onset: 5 Episodic Noninfectious gastroenteritis (8 sources) Gastroenteritis; Translations: [Noninfective gastroenteritis and colitis, unspecified] 04-01-2018 Episodic Nutritional deficiencies (20 sources) Vitamin D deficiency; Translations: [Vitamin D deficiency, unspecified] Onset: 6 04-10-2016 Chronic Open wounds of extremities (1 source) Disorder of lower extremity; Translations: [Unspecified open wound, left lower leg, subsequent encounter] Episodic Open wounds of extremities (1 source) Injury of right leg; Translations: [Unspecified open wound, right lower leg, initial encounter] 08-10-2023 Episodic Osteoporosis (20 sources) Senile osteoporosis; Translations: [Age-related osteoporosis without current pathological fracture] Onset: 2 05-30-2024 Chronic Other acquired deformities (1 source) Spondylolisthesis; Translations: [Spondylolisthesis, cervical region] Episodic Other aftercare (20 sources) Drug therapy finding; Translations: [Other chcf (current) drug therapy] Onset: 8 04-19-2017 Episodic Other circulatory disease (2 sources) Abnormal peripheral pulse; Translations: [Other specified symptoms and signs involving the circulatory and respiratory systems] 06-03-2024 Episodic Other connective tissue disease (6 sources) Swelling of left lower limb; Translations: [Other specified soft tissue disorders] 10-10-2022 Episodic Other connective tissue disease (6 sources) Swelling of right lower limb; Translations: [Other specified soft tissue disorders] 10-10-2022 Episodic Other connective tissue disease (14 sources) Other specified soft tissue disorders; Translations: [Swelling of limb] 10-30-2022 Episodic Other connective tissue disease (1 source) Pain of toe of left foot; Translations: [Pain in left toe(s)] 09-05-2024 Episodic Other connective tissue disease (1 source) Pain of toe of right foot; Translations: [Pain in right toe(s)] 09-05-2024 Episodic Other connective tissue disease (1 source) Pain in left toe(s); Translations: [Pain in toe of left foot] Onset: 5 Episodic Other connective tissue disease (1 source) Pain in right toe(s); Translations: [Pain in toe of right foot] Onset: 5 Episodic Other diseases of bladder and urethra (20 sources) Overactive bladder; Translations: [Overactive bladder] Onset: 3 Chronic Other diseases of bladder and urethra (8 sources) Overactive bladder; Translations: [Hypertonicity of bladder] Onset: 3 10-30-2022 Chronic Other diseases of bladder and urethra (1 source) Urethritis; Translations: [Other specified disorders of urethra] 03-29-2024 Episodic Other diseases of veins and lymphatics (7 sources) Venous stasis edema of left lower limb; Translations: [Venous insufficiency (chronic) (peripheral)] 10-10-2022 Episodic Other diseases of veins and lymphatics (7 sources) Venous stasis edema of right lower limb; Translations: [Venous insufficiency (chronic) (peripheral)] 10-10-2022 Episodic Other diseases of veins and lymphatics (7 sources) Stasis dermatitis; Translations: [Venous insufficiency (chronic) (peripheral)] 10-10-2022 Episodic Other diseases of veins and lymphatics (20 sources) Venous insufficiency (chronic) (peripheral); Translations: [Venous (peripheral) insufficiency, unspecified] 10-30-2022 Episodic Other ear and sense organ disorders (7 sources) Hearing loss; Translations: [Unspecified hearing loss, unspecified ear] 10-10-2022 Chronic Other ear and sense organ disorders (7 sources) Unspecified hearing loss, unspecified ear; Translations: [Unspecified hearing loss] 10-30-2022 Chronic Other ear and sense organ disorders (2 sources) Hearing difficulty; Translations: [Unspecified hearing loss, unspecified ear] 04-30-2024 Chronic Other ear and sense organ disorders (1 source) Bilateral hearing loss; Translations: [Unspecified hearing loss, bilateral] 09-10-2024 Chronic Other ear and sense organ disorders (7 sources) Tinnitus; Translations: [Tinnitus, unspecified ear] 10-10-2022 Episodic Other ear and sense organ disorders (7 sources) Tinnitus, unspecified ear; Translations: [Tinnitus, unspecified] 10-30-2022 Episodic Other ear and sense organ disorders (1 source) Tinnitus, bilateral; Translations: [Tinnitus of both ears] Onset: Episodic Other endocrine disorders (2 sources) Hypoglycemia; Translations: [Hypoglycemia, unspecified] Chronic Other gastrointestinal disorders (3 sources) Irritable bowel syndrome; Translations: [Irritable bowel syndrome without diarrhea] 04-30-2024 Chronic Other gastrointestinal disorders (2 sources) Acute constipation; Translations: [Constipation, unspecified] Episodic Other gastrointestinal disorders (4 sources) Dysphagia; Translations: [Dysphagia, unspecified] 04-15-2024 Episodic Other inflammatory condition of skin (1 source) Intertrigo; Translations: [Erythema intertrigo] Episodic Other injuries and conditions due to external causes (5 sources) Contusion of multiple sites; Translations: [Unspecified multiple injuries, initial encounter] 11-15-2022 Episodic Other injuries and conditions due to external causes (2 sources) Injury of head; Translations: [Unspecified injury of head, initial encounter] 06-16-2024 Episodic Other liver diseases (2 sources) Steatosis of liver; Translations: [Fatty (change of) liver, not elsewhere classified] 05-19-2024 Chronic Other lower respiratory disease (10 sources) Dyspnea; Translations: [Shortness of breath] Episodic Other lower respiratory disease (1 source) Snoring; Translations: [Snoring] Episodic Other lower respiratory disease (1 source) Rib pain; Translations: [Pleurodynia] 04-26-2021 Episodic Other nervous system disorders (20 sources) Bilateral carpal tunnel syndrome; Translations: [Carpal tunnel syndrome, bilateral upper limbs] Onset: 3 Chronic Other nervous system disorders (2 sources) Carpal tunnel syndrome of right wrist; Translations: [Carpal tunnel syndrome, right upper limb] Chronic Other nervous system disorders (1 source) Carpal tunnel syndrome; Translations: [Carpal tunnel syndrome, bilateral upper limbs] 10-10-2024 Chronic Other nutritional; endocrine; and metabolic disorders (3 sources) Hypercalcemia; Translations: [Hypercalcemia] Chronic Other nutritional; endocrine; and metabolic disorders (7 sources) Body mass index 30+ - obesity; Translations: [Obesity, unspecified] 10-10-2022 Chronic Other nutritional; endocrine; and metabolic disorders (7 sources) Obesity, unspecified; Translations: [Obesity, unspecified] 10-30-2022 Chronic Other nutritional; endocrine; and metabolic disorders (1 source) Hypercalcemia; Translations: [Hypercalcemia] Onset: 5 Chronic Other skin disorders (5 sources) Ingrowing toenail; Translations: [Ingrowing nail] 05-14-2024 Episodic Other skin disorders (2 sources) Ingrowing nail; Translations: [Ingrowing nail] 06-02-2024 Episodic Other skin disorders (2 sources) Ingrowing nail; Translations: [Onychocryptosis] Onset: 5 Episodic Pulmonary heart disease (1 source) Pulmonary hypertension; Translations: [Pulmonary hypertension, unspecified] Chronic Residual codes; unclassified (1 source) Hypersomnia; Translations: [Hypersomnia, unspecified] Chronic Residual codes; unclassified (6 sources) Edema of left lower limb; Translations: [Localized edema] 10-10-2022 Episodic Residual codes; unclassified (6 sources) Edema of right lower limb; Translations: [Localized edema] 10-10-2022 Episodic Residual codes; unclassified (7 sources) Past history of procedure; Translations: [Other specified postprocedural states] 10-10-2022 Episodic Residual codes; unclassified (7 sources) Localized edema; Translations: [Edema] 10-30-2022 Episodic Residual codes; unclassified (7 sources) Localized edema; Translations: [Edema] 10-30-2022 Episodic Residual codes; unclassified (7 sources) Acquired absence of other specified parts of digestive tract; Translations: [Other acquired absence of organ] 10-30-2022 Episodic Residual codes; unclassified (20 sources) Other specified postprocedural states; Translations: [Other postprocedural status] 10-30-2022 Episodic Residual codes; unclassified (7 sources) Acquired absence of other organs; Translations: [Other postprocedural status] 10-30-2022 Episodic Residual codes; unclassified (1 source) Noncompliance with treatment; Translations: [Non-compliance] 08-20-2023 Episodic Residual codes; unclassified (2 sources) Postmenopausal state; Translations: [Asymptomatic menopausal state] 04-15-2024 Episodic Residual codes; unclassified (2 sources) Noncompliance with medication regimen; Translations: [Noncompliance with medication regimen] 08-12-2023 Episodic Residual codes; unclassified (10 sources) Auditory hallucinations; Translations: [Auditory hallucinations] Onset: 09-10-2024 Episodic Residual codes; unclassified (1 source) Auditory hallucinations; Translations: [Auditory hallucination] Onset: Episodic Schizophrenia and other psychotic disorders (8 sources) Brief psychotic disorder; Translations: [Acute psychosis] 01-13-2020 Episodic Skin and subcutaneous tissue infections (15 sources) Cellulitis of skin; Translations: [Cellulitis, unspecified] Episodic Spondylosis; intervertebral disc disorders; other back problems (1 source) Neck pain; Translations: [Cervicalgia] 12-26-2021 Episodic Sprains and strains (2 sources) Strain of thoracic region; Translations: [Strain of muscle and tendon of unspecified wall of thorax, initial encounter] 06-16-2024 Episodic Superficial injury; contusion (15 sources) Contusion of rib; Translations: [Contusion of unspecified front wall of thorax, initial encounter] 05-09-2021 Episodic Thyroid disorders (20 sources) Multinodular goiter; Translations: [Nontoxic multinodular goiter] Onset: 1 03-24-2021 Chronic Unclassified (1 source) Unknown / UNK(Unknown) Onset: 7 Unclassified (20 sources) OPENED IN ERROR Onset: 2 06-06-2021 Unclassified (1 source) APPOINTMENT CANCELLED Unclassified (1 source) Aortic stenosis, mild 09-10-2024 Unclassified (1 source) Secondary hypertension; Translations: [Secondary hypertension] Onset: 5 Urinary tract infections (8 sources) Urinary tract infectious disease; Translations: [Urinary tract infection, site not specified] 01-13-2020 Episodic Viral infection (20 sources) Herpes zoster; Translations: [Zoster without complications] 03-28-2021 Episodic Past or Other Problems Problem Classification Problem Date Documented Da te Episodic/Chronic Acquired foot deformities (20 sources) Acquired deformity of toe of left foot; Translations: [Acquired deformities of toe(s), unspecified, left foot] Onset: 03-21-2021 03-21-2021 Episodic Allergic reactions (20 sources) Eczema; Translations: [Other specified dermatitis] Onset: 02-26-2009 Resolved: 06-28-2009 Episodic Genitourinary symptoms and ill-defined conditions (20 sources) Microscopic hematuria; Translations: [Other microscopic hematuria] Onset: 04-23-2015 08-28-2018 Episodic Nonspecific chest pain (20 sources) Chest pain; Translations: [Chest pain, unspecified] Onset: 02-07-2024 Episodic Other aftercare (20 sources) Patient encounter status; Translations: [Other chcf (current) drug therapy] Onset: 03-06-2022 Episodic Other and unspecified benign neoplasm (20 sources) History of polyp of colon; Translations: [Personal history of colonic polyps] Onset: 10-10-2022 Episodic Other bone disease and musculoskeletal deformities (20 sources) Osteopenia; Translations: [Other specified disorders of bone density and structure, unspecified site] Onset: 04-24-2011 07-25-2017 Episodic Other circulatory disease (20 sources) Spider nevus; Translations: [Nevus, non-neoplastic] Onset: 02-26-2009 Resolved: 06-28-2009 06-28-2009 Episodic Other circulatory disease (1 source) Other specified symptoms and signs involving the circulatory and respiratory systems; Translations: [Diminished pulses in lower extremity] Onset: 07-09-2024 Episodic Other diseases of veins and lymphatics (20 sources) Peripheral venous insufficiency; Translations: [Venous insufficiency (chronic) (peripheral)] Onset: 12-21-2015 04-10-2016 Episodic Other diseases of veins and lymphatics (20 sources) Venous stasis; Translations: [Other specified disorders of veins] Onset: 02-26-2009 Resolved: 06-28-2009 06-28-2009 Episodic Other ear and sense organ disorders (20 sources) Bilateral tinnitus; Translations: [Tinnitus, bilateral] Onset: 12-26-2021 Episodic Other injuries and conditions due to external causes (1 source) Encounter for examination and observation following other accident; Translations: [Encounter for examination and observation following other accident] Onset: 06-24-2024 Episodic Other liver diseases (20 sources) Gamma-glutamyl transferase raised; Translations: [Abnormal levels of other serum enzymes] Onset: 07-03-2017 03-21-2021 Episodic Other liver diseases (20 sources) Alkaline phosphatase raised; Translations: [Abnormal levels of other serum enzymes] Onset: 08-28-2018 03-21-2021 Episodic Other liver diseases (1 source) Abnormal levels of other serum enzymes; Translations: [Elevated alkaline phosphatase level] Onset: 03-21-2021 Episodic Other non-epithelial cancer of skin (20 sources) History of malignant neoplasm of skin; Translations: [Personal history of other malignant neoplasm of skin] Onset: 02-26-2009 11-26-2015 Episodic Other nutritional; endocrine; and metabolic disorders (20 sources) Body mass index 40+ - severely obese; Translations: [Morbid (severe) obesity due to excess calories] Onset: 06-19-2016 Resolved: 08-20-2023 09-18-2016 Chronic Other screening for suspected conditions (not mental disorders or infectious disease) (20 sources) Cardiovascular stress test abnormal; Translations: [Abnormal result of other cardiovascular function study] Onset: 07-03-2017 Episodic Other skin disorders (20 sources) Callosity; Translations: [Corns and callosities] Onset: 09-18-2016 11-01-2016 Episodic Other skin disorders (20 sources) Sebaceous cyst of skin; Translations: [Sebaceous cyst] Onset: 07-03-2017 08-27-2018 Episodic Other skin disorders (20 sources) Foot callus; Translations: [Corns and callosities] Onset: 03-21-2021 03-21-2021 Episodic Other skin disorders (20 sources) Actinic keratosis; Translations: [Actinic keratosis] Onset: 02-26-2009 Resolved: 06-28-2009 06-28-2009 Episodic Other skin disorders (20 sources) Seborrheic keratosis; Translations: [Other seborrheic keratosis] Onset: 02-26-2009 Resolved: 06-28-2009 06-28-2009 Episodic Other skin disorders (20 sources) Solar lentigo; Translations: [Other melanin hyperpigmentation] Onset: 02-26-2009 Resolved: 06-28-2009 06-28-2009 Episodic Other skin disorders (20 sources) Scar conditions and fibrosis of skin; Translations: [Scar conditions and fibrosis of skin] Onset: 02-26-2009 Resolved: 06-28-2009 06-28-2009 Episodic Other skin disorders (20 sources) Asteatosis cutis; Translations: [Xerosis cutis] Onset: 02-26-2009 Resolved: 06-28-2009 06-28-2009 Episodic Residual codes; unclassified (20 sources) Bilateral lower limb edema; Translations: [Localized edema] Onset: 05-31-2015 11-26-2015 Episodic Residual codes; unclassified (1 source) Asymptomatic menopausal state; Translations: [Asymptomatic postmenopausal status] Onset: 05-23-2024 Episodic Unclassified (8 sources) History repair broken nose 10-19-2021 Unclassified (8 sources) history ORIF left wrist 10-19-2021 Results Test Name Value Interpretation Reference Range Facility [facility] 11-05-2024 CNCO Letter Text Normal [facility] Cardiology Visit Reporton Cardiology Visit Report [facility] [address] [place], [place] [address] OFFICE VISIT Date of Service: 10/29/24 MR#: [id number] Acct: [id number] Name: FRANKMARCI M Rep #: [id number] : 1940 Provider: Dr. Luigi Washington MD Age/Sex: 84/F Location: [facility] Status: Signed HPI HPI History of Present Illness Details: 84-year-old lady previously seen in the [facility] and asked to see as for evaluation of her shortness of breath as well as pedal edema. She does have a history of hypertension, diabetes mellitus, hyperlipidemia, palpitations. She had previously undergone an echocardiogram in February 2020 demonstrating an ejection fraction of 65% with mild aortic stenosis stress test in May 2021 where she exercised to a low metabolic workload and a cardiac catheterization the same year in October which demonstrated preserved LV function and mild to minimal coronary disease. Holter monitor did not demonstrate significant tachyarrhythmias with an average heart rate of 77 bpm. She has been on medication but she says that she continues to have lower extremity edema and some palpitations. She has recently been put on some anxiolytic and antidepressant medications and she tells me that she is doing much better. She denies any dizziness or diaphoresis near syncope or syncope she does have pedal edema. She has shortness of breath with ambulation. Intake Vital Signs 08/21/24 08:30 10/29/24 11:19 Height 5 ft 6 in 5 ft 6 in Weight: 240 lb BMI 38.7 BP 133/70 H Blood Pressure Location Lt brachial Position Sitting Respiration 20 H Pulse 84 Pulse Source Monitor Pulse Oximetry (%) 97 Oxygen Delivery Method room air Intake Visit Reasons: EST (SELF) Senior Functional Analyst Required: No Accompanied by: Self Is patient in pain?: No Allergies codeine Allergy (Intermediate, Verified 10/29/24 11:27) Rash niacin Allergy (Intermediate, Verified 10/29/24 11:27) Rash Penicillins Allergy (Intermediate, Verified 10/29/24 11:27) Rash pioglitazone Allergy (Intermediate, Verified 10/29/24 11:27) leg edema CHF prednisone Allergy (Intermediate, Verified 10/29/24 11:27) Rash acetaminophen (From Vicodin) Allergy (Verified 10/29/24 11:27) Other celecoxib (From Celebrex) Allergy (Verified 10/29/24 11:27) Unknown hydrocodone (From Vicodin) Allergy (Verified 10/29/24 11:27) Other morphine Allergy (Verified 10/29/24 11:27) Other Sulfa (Sulfonamide Antibiotics) Allergy (Verified 10/29/24 11:27) Rash Medications ???Medication ???Instructions ???Recorded ???Confirmed ???Type metformin 500 mg tablet 500 mg PO UD diabetes 07/05/17 History hydrochlorothiazide 25 mg tablet 25 mg PO DAILY diuretic 04/01/18 0 10/29/24 History nitroglycerin 0.4 mg sublingual 0.4 mg sublingual Q5M 10/10/22 History tablet (Nitrostat) sitagliptin phosphate 100 mg 100 mg PO DAILY blood sugar 10/29/24 History tablet (Januvia) lisinopril 40 mg tablet 40 mg PO BID 04/22/24 10/29/24 His tory pantoprazole 40 mg tablet,delayed 40 mg PO QDAY #90 tabs 04/30/24 0 10/29/24 Rx release meclizine 25 mg chewable tablet 25 mg PO TID PRN dizziness #10 tab s 08/21/24 10/29/24 Rx (Antivert) alendronate 70 mg tablet mg PO 10/10/24 10/29/24 History cholecalciferol (vitamin D3) 50 150 mcg PO QDAY 10/10/24 10/29/24 History mcg (2,000 unit) capsule furosemide 40 mg tablet 40 mg PO PRN 10/10/24 10/29/24 His tory glimepiride 4 mg tablet 4 mg PO QPM 10/10/24 10/29/24 Hist ory acetaminophen 500 mg tablet 500 mg PO Q6H PRN 10/29/24 5 History (Tylenol Extra Strength) buspirone 5 mg tablet 5 mg PO BID 10/29/24 10/29/24 Hist ory carvedilol 12.5 mg tablet 12.5 mg PO BID #180 tabs 10/29/24 10/29/24 Rx sertraline 50 mg tablet 50 mg PO QDAY 10/29/24 10/29/24 Hi story Have you fallen in the past year?: Yes PFSH Medical History Vitamin D deficiency Schatzki's ring Multiple thyroid nodules Diastolic congestive heart failure Bilateral carpal tunnel syndrome Anxiety and depression Difficulty swallowing IBS (irritable bowel syndrome) Nonadherence to medication Diabetes mellitus, type 2 Chest pain Obesity (BMI 35.0-39.9 without comorbidity) Edema of right lower extremity due to peripheral venous insufficiency Edema of left lower extremity due to peripheral venous insufficiency Venous stasis dermatitis Atrial fibrillation Overactive bladder Esophageal stricture Hearing deficit Tinnitus History of basal cell cancer Diaphragmatic hernia Diabetic neuropathy Aortic stenosis Hyperlipidemia Chronic venous insufficiency Osteoporosis Thrombocytopenia Metabolic acidosis Hypokalemia Gastroenteritis Acute kid (more content not included)... Normal [facility] CNOVon 10-21-2024 [facility] MARCI MARIE ([id number]) 1940 F DEF Date Time Provider Department 10/21/24 1:00 PM [facility]RT [facility] During your visit today, we recorded the following information about you: Temperature Pulse Respiration Blood pressure 97.4 degrees 81/minute 18/minute 130/76 Weight 107 kg Sharona Bettencourt PA-C 10/21/2024 2:00 PM Signed Chief Complaint Patient presents with: Follow Up: medication HPI Marci Marie is a 84 year old female who presents here today for Above Complaints.. Lower Extremity Wounds: - Chronic wounds on bilateral lower extremities, attributed to diabetes. - Reports dryness, cracking, and sores on legs. - Has been using various lotions and AANDD ointment without significant improvement. - Previously seen by Dr. Eliezer Iglesias at [facility]; treatment included leg elevation and wrapping. - Insurance limited the number of visits to wound care. - Currently elevating legs and minimizing ambulation as advised. - Recently took three antibiotic pills at home to prevent infection. Depression: - Managed with sertraline and Buspar prn; reports improvement in symptoms. - Scheduled to see counseling on November 06; currently has monthly visits. on wait list for psychiatrist - Hearing from her son recently has also contributed to feeling better. 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 - Considering cochlear implant; decision appointment scheduled for next Sunday. - Still hears news broadcasts occasionally. Past medical history, appointments, medications, allergies reviewed. Previous Medical History PAST MEDICAL HISTORY Diagnosis Date Acquired deformity of left toe 03/21/2021 second and third digits Adjustment disorder with depressed mood 01/19/2020 Aortic stenosis, mild 12/02/[address] 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 Corns and callus 09/18/2016 Current severe episode of major depressive disorder with psychotic features without prior episode ([facility]) 01/19/2020 Diabetic eye exam ([facility]) 08/21/2016 Last Done: 08/09/2017 No Retinopathy Diaphragmatic hernia without mention of obstruction or gangrene Diastolic congestive heart failure (HCC) 07/03/2022 Elevated alkaline phosphatase level 08/28/2018 Elevated serum GGT level 07/03/2017 Essential hypertension 07/13/2014 Foot callus 03/21/2021 SAMEER (generalized anxiety disorder) 09/05/2018 Gastroesophageal reflux disease with esophagitis 04/23/2015 Herpes zoster mild occasional neuralgia in left cervical area. Hiatal hernia History of colon polyps Mixed hyperlipidemia Morbid obesity with BMI of 40.0-44.9, adult (HCC) 06/19/2016 Multiple thyroid nodules 03/24/2021 US 03/2021: Needs yearly f/u for 5 yrs OAB (overactive bladder) 10/10/2022 Osteopenia 04/24/2011; Start vitamin d 1,000/day and RE-CHECK 2013 Personal history of other malignant neoplasm of skin 02/26/2009 Schatzki's ring Sebaceous cyst 07/03/2017 lower anterior neck Skin cancer, basal cell 04/23/2015 nose Stricture and stenosis of esophagus egd/dilatation by Dr. Hollins; Tinnitus of both ears 12/26/2021 Due to hearing loss. 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 Dr. Filemon Galvan. COLONOSCOPY SCRN NOT HIGH RISK 06/10/2003 upper and lower EGD 08/17/2009 Dr. Theo Hollins EGD DILATION 11/04/2018 Schatzi's Ring, mild reactive gastropathy. Dr. Filemon Galvan. ESOPHAGOGASTRODUODENOSCOPY TRANSORAL DIAGNOSTIC 06/2003 EGD EXERCISE ECG STRESS TEST 03/02/2020 negative NOSE SURGERY HX 2006 Nasal fracture repair REVISE MEDIAN N/CARPAL TUNNEL SURG Right 09/14/2022 TONSILLECTOMY AND ADENOIDECTOMY HX WRIST SURGERY HX 12/1988 Broken Left wrist surgery at [facility] - Dr. Delgado Family History FAMILY HISTORY Problem Relation Age of Onset Allergies Mother Heart Mother Asthma Mother Alzheimer's Disease Father Heart disease Father Hypertension Father Hypertension Maternal Grandmother DVT Maternal Grandmother Stroke Paternal Grandmother Stroke Paternal Grandfather Hypertension Brother Diabetes Brother Patient Allergi (more content not included)... [facility] MARCI MARIE ([id number]) 1940 F DEF Date Time Provider Department 10/21/24 [facility]OURT [facility] During your visit today, we recorded the following information about you: Nikki Patino RN 10/21/2024 1:33 PM Signed Shira Pharmacist from [employer] calls and states that manufacture does not make Lac-Hydrin Five anymore. Manufactures do make 12%. Please review and advise, ARON Burton Rayanne, PA-C 10/21/2024 2:03 PM Signed Resent The following approved medication requests have been transmitted electronically. Requested Prescriptions Signed Prescriptions Disp Refills ammonium lactate (LAC-HYDRIN) 12 % cream 290 g 3 Sig: Apply to affected area as needed. Authorizing Provider: SHARONA BETTENCOURT PA-C Allergies As of Date: 10/21/2024 Noted Allergy Reaction CODEINE 10/02/2003 2 - Rash PENICILLINS 10/02/2003 2 - Rash PIOGLITAZONE 07/03/2022 14 - Other: See Comments Comments: Increased leg edema and CHF symptoms PREDNISONE 10/02/2003 2 - Rash ACETAMINOPHEN 10/27/2021 14 - Other: See Comments CELEBREX (CELECOXIB) 11/26/2004 16 - Unknown NIACIN 10/02/2003 2 - Rash SULFA (SULFONAMIDE ANTIBIOTICS) 10/02/2003 2 - Rash Date Reviewed: 10/21/2024 Reviewed by: Poonam Roman LPN - Fully Assessed Reason for Visit: Medication Problem [65] Order(s):ammonium lactate (LAC-HYDRIN) 12 % creamApply to affected area as needed.Disp: 290 gRfl: 3 Prescriptions as of 10/21/2024 - amLODIPine (NORVASC) 5 mg tablet Take 1 tablet by mouth once daily. - sertraline (ZOLOFT) 50 mg tablet Take 1 tablet by mouth once daily. - busPIRone (BUSPAR) 5 mg tablet Take 1 tablet by mouth two times a day as needed. - cefADROxil (DURICEF) 500 mg capsule Take 1 capsule by mouth two times a day for 5 days. - ammonium lactate (LAC-HYDRIN) 12 % cream Apply to affected area as needed. - glimepiride (AMARYL) 4 mg tablet Take 1 tablet by mouth daily with dinner. - metFORMIN (GLUCOPHAGE) 500 mg tablet Take by mouth. take 2 tabs w/breakfast;1 tab with lunch and TWO tabs w/ dinner - Blood-Glucose Meter DISPENSE ONE METER. Insulin use. E11.9 - blood sugar diagnostic (BLOOD GLUCOSE TEST) test strip CHECK BLOOD SUGAR THREE TIMES DAILY - Lancets CHECK BLOOD SUGAR THREE TIME DAILY PRE MEAL. - insulin glargine (LANTUS SOLOSTAR U-100 INSULIN) 100 unit/mL (3 mL) Inject 10 Units subcutaneously daily at bedtime. - alendronate (FOSAMAX) 70 mg tablet Take 1 tablet by mouth one time a week. In AM with cup of water on empty stomach. Nothing else by mouth and stay upright for 30 min. - carvedilol (COREG) 6.25 mg tablet Take 1 tablet by mouth two times a day with meals. - Insulin [place], Disposable, (PEN NEEDLE) 32 gauge x 5/32 Inject 1 Each subcutaneously every 24 hours. Give with each insulin administration. - SITagliptin phosphate (JANUVIA) 100 mg tablet Take 1 tablet by mouth once daily. - lisinopril (ZESTRIL) 40 mg tablet Take 1 tablet by mouth two times a day. - hydroCHLOROthiazide 25 mg tablet Take 1 tablet by mouth once daily. - furosemide (LASIX) 40 mg tablet Take 1 tablet by mouth as needed. - nitroglycerin sublingual (NITROQUICK) 0.4 mg SL tablet Dissolve 1 tablet under the tongue as needed. FOR CHEST PAIN. IF NO RELIEF CALL 911 - Blood-Glucose Meter,Continuous (FREESTYLE KIRK 3 READER) [facility] Check blood sugars 3-4 times a day Dx: E11.65 no insulin - Blood-Glucose Sensor (FREESTYLE KIRK 3 SENSOR) em Apply a new sensor once every 2 weeks. Check blood sugars 3-4 times a day Dx: E11.65 no insulin - Cholecalciferol, Vitamin D3, 2,000 unit cap Take 3 capsules by mouth once daily. Problem List As Of Date 10/21/2024 Noted Resolved Diaphragmatic hernia without mention of obstruc* Herpes zoster [B02.9] Stricture and Stenosis of Esophagus [K22.2] Mixed Hyperlipidemia [E78.2] 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*07/01/2007 Actinic Keratosis [L57.0] 02/26/2009 06/28/2009 Other Seborrheic Keratosis [L82.1] 02/26/2009 06/28/2009 Sun-Damaged Skin [L57.8] 02/26/2009 06/28/2009 Solar Lentigo [L81.4] 02/26/2009 06/28/2009 Scar Condition and Fibrosis of Skin [L90.5] 02/26/2009 06/28/2009 Personal history of other malignant neoplasm of*02/26/2009 Capillary Angioma [I78.1] 02/26/2009 06/28/2009 Xerosis Cutis [L85.3] 02/26/2009 06/28/2009 Venous Stasis [I87.8] 02/26/2009 06/28/2009 Age-related osteoporosis without current pathol*04/24/2011 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)*07/07/2013 Essential hypertension [I10] 07/13/2014 Routine gynecological examination [Z01.419] 07/21/2014 Gastroesophageal reflux disease with esophagiti*04/23/2015 Skin cancer, basal cell [C44.91] 04/23/2015 Bilateral leg edema [R60.0] 05/31/2015 Vitamin D deficiency [E55.9] 11/26/2015 Aortic stenosis, mild [I35.0] 12/02/2015 Venous (p (more content not included)... Normal [facility] CNOVon 09-23-2024 CNOV Office Visit ([facility] ) MARCI MARIE ([id number]) 1940 F DEF Date Time Provider Department 09/23/24 3:20 PM [facility]IN [facility] During your visit today, we recorded the following information about you: Pulse Blood pressure Weight 80/minute 166/75 105 kg Rasheed Chin APRN.DIESEL MAINTENANCE TECHNICIAN 09/23/2024 3:37 PM Signed Chief Complaint Patient presents with: Depression Anxiety HPI Marci Marie is a 84 year old female who presents here today for Above Complaints. Patient presents for medication for depression and anxiety. Sees psychology at the counseling center and they advised she come to PCP for medication as psychiatrist has long waiting list. Patient is losing her hearing and her only option is surgery as hearing aids will not help her hearing loss. Past medical history, appointments, medications, allergies reviewed. Previous Medical History PAST MEDICAL HISTORY Diagnosis Date Acquired deformity of left toe 03/21/2021 second and third digits Adjustment disorder with depressed mood 01/19/2020 Aortic stenosis, mild 12/02/[address] 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 Corns and callus 09/18/2016 Current severe episode of major depressive disorder with psychotic features without prior episode (HCC) 01/19/2020 Diabetic eye exam ([facility]) 08/21/2016 Last Done: 08/09/2017 No Retinopathy Diaphragmatic hernia without mention of obstruction or gangrene Diastolic congestive heart failure (HCC) 07/03/2022 Elevated alkaline phosphatase level 08/28/2018 Elevated serum GGT level 07/03/2017 Essential hypertension 07/13/2014 Foot callus 03/21/2021 SAMEER (generalized anxiety disorder) 09/05/2018 Gastroesophageal reflux disease with esophagitis 04/23/2015 Herpes zoster mild occasional neuralgia in left cervical area. Hiatal hernia History of colon polyps Mixed hyperlipidemia Morbid obesity with BMI of 40.0-44.9, adult ([facility]) 06/19/2016 Multiple thyroid nodules 03/24/2021 US 03/2021: Needs yearly f/u for 5 yrs OAB (overactive bladder) 10/10/2022 Osteopenia 04/24/2011; Start vitamin d 1,000/day and RE-CHECK 2013 Personal history of other malignant neoplasm of skin 02/26/2009 Schatzki's ring Sebaceous cyst 07/03/2017 lower anterior neck Skin cancer, basal cell 04/23/2015 nose Stricture and stenosis of esophagus egd/dilatation by Dr. Hollins; Tinnitus of both ears 12/26/2021 Due to hearing loss. Type 2 diabetes mellitus with proteinuria ([facility]) 07/07/2013 Uncontrolled type 2 diabetes mellitus with hyperglycemia ([facility]) 01/02/2020 Venous (peripheral) insufficiency 12/21/2015 Vitamin D deficiency 11/26/2015 Previous Surgical History PAST SURGICAL HISTORY Procedure Laterality Date 2D ECHO (EXEP) 12/02/2015 EF=59% mild LVH, mild MR,TR and 2D ECHO (EXEP) 02/13/2020 EF=65%, mild dilated LA, 1+ MR and CHOLECYSTECTOMY Cholecystectomy COLONOSCOPY 11/04/2018 Sessile serrated polyp, Tubullovillous adenoma. Dr. Filemon Galvan. COLONOSCOPY SCRN NOT HIGH RISK 06/10/2003 upper and lower EGD 08/17/2009 Dr. Theo Hollins EGD DILATION 11/04/2018 Schatzi's Ring, mild reactive gastropathy. Dr. Filemon Galvan. ESOPHAGOGASTRODUODENOSCOPY TRANSORAL DIAGNOSTIC 06/2003 EGD EXERCISE ECG STRESS TEST 03/02/2020 negative NOSE SURGERY HX 2006 Nasal fracture repair REVISE MEDIAN N/CARPAL TUNNEL SURG Right 09/14/2022 TONSILLECTOMY AND ADENOIDECTOMY HX WRIST SURGERY HX 12/1988 Broken Left wrist surgery at [facility] - Dr. Delgado Family History FAMILY HISTORY Problem Relation Age of Onset Allergies Mother Heart Mother Asthma Mother Alzheimer's Disease Father Heart disease Father Hypertension Father Hypertension Maternal Grandmother DVT Maternal Grandmother Stroke Paternal Grandmother Stroke Paternal Grandfather Hypertension Brother Diabetes Brother Patient Allergies ALLERGIES Allergen Reactions Codeine Rash Penicillins Rash Pioglitazone Other: See Comments Increased leg edema and CHF symptoms Prednisone Rash Acetaminophen Other: See Comments Celebrex [Celecoxib] Unknown Niacin Rash Sulfa (Sulfonamide * Rash Current Medications Current Outpatient Medications on File Prior to Visit Medication Sig glimepiride (AMARYL) 4 mg tablet Take 1 tablet by mouth daily with dinner. metFORMIN (GLUCOPHAGE) 500 mg tablet Take by mouth. take 2 tabs w/breakfast;1 tab with lunch and TWO tabs w/ dinner Blood-Glucose Meter DISPENSE ONE METER. Insulin use. E11.9 blood sugar diagnostic (BLOOD GLUCOSE TEST) test strip CHECK BLOOD SUGAR THREE TIMES DAILY Lancets CHECK BLOOD SUGAR THREE TIME DAILY PRE MEAL. insulin glargine (LANTUS SOLOSTAR U-100 INSULIN) 100 u (more content not included)... Normal [facility] 09-23-2024 CNPN Telephone ([facility]) MARCI MARIE ([id number]) 1940 F DEF Date Time Provider Department 09/23/24 ARTURO AMAYA During your visit today, we recorded the following information about you: Madelyn Caba, RN 09/23/2024 9:56 AM Signed Pt calling in stating she is currently seeing [facility]. He asked her to reach out to her PCP as she needs to be put on medication for anxiety AND depression. She is on the waiting list at the counseling center to see the psychiatrist but her counselor wants her to get started on meds now. Pt states she had a very bad weekend recently and decided to get help for herself. Pt booked for a 40 min appt with Rasheed Chin this afternoon at 320 pm. Allergies As of Date: 09/23/2024 Noted Allergy Reaction CODEINE 10/02/2003 2 - Rash PENICILLINS 10/02/2003 2 - Rash PIOGLITAZONE 07/03/2022 14 - Other: See Comments Comments: Increased leg edema and CHF symptoms PREDNISONE 10/02/2003 2 - Rash ACETAMINOPHEN 10/27/2021 14 - Other: See Comments CELEBREX (CELECOXIB) 11/26/2004 16 - Unknown NIACIN 10/02/2003 2 - Rash SULFA (SULFONAMIDE ANTIBIOTICS) 10/02/2003 2 - Rash Date Reviewed: 09/10/2024 Reviewed by: Poonam Roman, MEGHANA - Fully Assessed Reason for Visit: Medication Request [138] Prescriptions as of 09/23/2024 - glimepiride (AMARYL) 4 mg tablet Take 1 tablet by mouth daily with dinner. - metFORMIN (GLUCOPHAGE) 500 mg tablet Take by mouth. take 2 tabs w/breakfast;1 tab with lunch and TWO tabs w/ dinner - Blood-Glucose Meter DISPENSE ONE METER. Insulin use. E11.9 - blood sugar diagnostic (BLOOD GLUCOSE TEST) test strip CHECK BLOOD SUGAR THREE TIMES DAILY - Lancets CHECK BLOOD SUGAR THREE TIME DAILY PRE MEAL. - insulin glargine (LANTUS SOLOSTAR U-100 INSULIN) 100 unit/mL (3 mL) Inject 10 Units subcutaneously daily at bedtime. - alendronate (FOSAMAX) 70 mg tablet Take 1 tablet by mouth one time a week. In AM with cup of water on empty stomach. Nothing else by mouth and stay upright for 30 min. - carvedilol (COREG) 6.25 mg tablet Take 1 tablet by mouth two times a day with meals. - Insulin [place], Disposable, (PEN NEEDLE) 32 gauge x /32 Inject 1 Each subcutaneously every 24 hours. Give with each insulin administration. - SITagliptin phosphate (JANUVIA) 100 mg tablet Take 1 tablet by mouth once daily. - lisinopril (ZESTRIL) 40 mg tablet Take 1 tablet by mouth two times a day. - hydroCHLOROthiazide 25 mg tablet Take 1 tablet by mouth once daily. - furosemide (LASIX) 40 mg tablet Take 1 tablet by mouth as needed. - amLODIPine (NORVASC) 5 mg tablet Take 1 tablet by mouth once daily. - nitroglycerin sublingual (NITROQUICK) 0.4 mg SL tablet Dissolve 1 tablet under the tongue as needed. FOR CHEST PAIN. IF NO RELIEF CALL 911 - Blood-Glucose Meter,Continuous (FREESTYLE KIRK 3 READER) misc Check blood sugars 3-4 times a day Dx: E11.65 no insulin - Blood-Glucose Sensor (FREESTYLE KIRK 3 SENSOR) em Apply a new sensor once every 2 weeks. Check blood sugars 3-4 times a day Dx: E11.65 no insulin - Cholecalciferol, Vitamin D3, 2,000 unit cap Take 3 capsules by mouth once daily. Problem List As Of Date 09/23/2024 Noted Resolved Diaphragmatic hernia without mention of obstruc* Herpes zoster [B02.9] Stricture and Stenosis of Esophagus [K22.2] Mixed Hyperlipidemia [E78.2] 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*07/01/2007 Actinic Keratosis [L57.0] 02/26/2009 06/28/2009 Other Seborrheic Keratosis [L82.1] 02/26/2009 06/28/2009 Sun-Damaged Skin [L57.8] 02/26/2009 06/28/2009 Solar Lentigo [L81.4] 02/26/2009 06/28/2009 Scar Condition and Fibrosis of Skin [L90.5] 02/26/2009 06/28/2009 Personal history of other malignant neoplasm of*02/26/2009 Capillary Angioma [I78.1] 02/26/2009 06/28/2009 Xerosis Cutis [L85.3] 02/26/2009 06/28/2009 Venous Stasis [I87.8] 02/26/2009 06/28/2009 Age-related osteoporosis without current pathol*04/24/2011 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)*07/07/2013 Essential hypertension [I10] 07/13/2014 Routine gynecological examination [Z01.419] 07/21/2014 Gastroesophageal reflux disease with esophagiti*04/23/2015 Skin cancer, basal cell [C44.91] 04/23/2015 Bilateral leg edema [R60.0] 05/31/2015 Vitamin D deficiency [E55.9] 11/26/2015 Aortic stenosis, mild [I35.0] 12/02/2015 Venous (peripheral) insufficiency [I87.2] 12/21/2015 Morbid obesity with BMI of 40.0-44.9, adult (HC*06/19/2016 08/20/2023 Diabetic eye exam (HCC) [Z01.00, E11.9] 08/21/2016 Corns and callus [L84] 09/18/2016 Screening for colon cancer [Z12.11] 07/03/2017 Sebaceous cyst [L72.3] 07/03/2017 Elevated serum GGT level [R74.8] 07/03/2017 Microscopic hematuria [R31.29] 08/28/2018 Elevated alkaline phosphatase level [R74.8] 08/28/2018 Uncontrolled type 2 diabetes mellitus with hy (more content not included)... Normal [facility] POTASSIUMOrdered By: Genny rodriguez on 09-12-2024 Interpretation and review of laboratory results Normal [facility] Potassium [Moles/Vol] 4.2 mmol/L 3.7 - 5.1 mmol/L [facility] POTASSIUMon 09-12-2024 Potassium [Moles/Vol] 4.2 mmol/L Normal 3.7-5.1 [facility] Comment on above: Order Comment: Speci men Type: BLOOD SPECIMENOrdering Facility: [facility] Address: [address] [place] [address] Performed By: #### K 1 ####[facility] [id number] [place] [id number] [place] Urinalysis complete panel (U )on 09-12-2024 Bacteria LM.HPF (Urine sed) [#/Area] Negative Normal Negative [facility] Comment on above: Order Comment: Speci men Type: URINE SPECIMENOrdering Facility: [facility] Address: [address] [place] [address] Performed By: #### 2 4356-8 ####[facility] LABCLIA [id number] [place] [address] [place] Bilirubin Ql (U) Negative Normal Negative [facility] Comment on above: Order Comment: Speci men Type: URINE SPECIMENOrdering Facility: [facility] Address: [address] [place] [address] Performed By: #### 2 4356-8 ####[facility] LABCLIA [id number] [place] [address] [place] Clarity (Unsp spec) Clear Normal Clear [facility] Comment on above: Order Comment: Speci men Type: URINE SPECIMENOrdering Facility: [facility] Address: [address] [place] [address] Performed By: #### 2 4356-8 ####[facility] LABCLIA [id number] [place] [address] [place] Color (U) Yellow Normal Yellow [facility] Comment on above: Order Comment: Speci men Type: URINE SPECIMENOrdering Facility: [facility] Address: [address] [place] [address] Performed By: #### 2 4356-8 ####[facility] LABCLIA [id number] [place] [id number] [place] Epithelial cells LM.HPF (Urine sed) [#/Area] None Seen Normal [facility] Comment on above: Order Comment: Speci men Type: URINE SPECIMENOrdering Facility: [facility] Address: [address] [place] [address] Performed By: #### 2 4356-8 ####[facility] LABCLIA [id number] [facility] [address] [place] [address] [place] Glucose Test strip (U) [Mass/Vol] 2+ Abnormal Negative [facility] Comment on above: Order Comment: Speci men Type: URINE SPECIMENOrdering Facility: [facility] Address: [address] [place] [address] Performed By: #### 2 4356-8 ####[facility] LABCLIA [id number] [facility] [address], [id number] [place] Hemoglobin Ql (U) Negative Normal Negative [facility] Comment on above: Order Comment: Speci men Type: URINE SPECIMENOrdering Facility: [facility] Address: [address] [place] [address] Performed By: #### 2 4356-8 ####[facility] LABCLIA [id number] [address], [place] [address] [place] Hyaline casts (Urine sed) [#/Area] 0 /[LPF] Normal 0 /LPF [facility] Comment on above: Order Comment: Speci men Type: URINE SPECIMENOrdering Facility: [facility] Address: [address] [place] [address] Performed By: #### 2 4356-8 ####[facility] LABCLIA [id number] [address], [place] [address] [place] Ketones Ql (U) Negative Normal Negative [facility] Comment on above: Order Comment: Speci men Type: URINE SPECIMENOrdering Facility: [facility] Address: [address] [place] [address] Performed By: #### 2 4356-8 ####[facility] LABCLIA [id number] [address], [place] [address] [place] Leukocyte esterase Test strip Ql (U) Negative Normal Negative [facility] Comment on above: Order Comment: Speci men Type: URINE SPECIMENOrdering Facility: [facility] Address: [address] [place] [address] Performed By: #### 2 4356-8 ####[facility] LABCLIA [id number] [place] [address] [place] Nitrite Ql (U) Negative Normal Negative [facility] Comment on above: Order Comment: Speci men Type: URINE SPECIMENOrdering Facility: [facility] Address: [address] [place] [address] Performed By: #### 2 4356-8 ####[facility] LABCLIA [id number] [place] [address] [place] pH (U) 6.0 [pH] Normal <8.5 [facility] Comment on above: Order Comment: Speci men Type: URINE SPECIMENOrdering Facility: [facility] Address: [address] [place] [address] Performed By: #### 2 4356-8 ####[facility] LABCLIA [id number] [place] [address] [place] Protein (U) [Mass/Vol] Negative Normal Negative [facility] Comment on above: Order Comment: Speci men Type: URINE SPECIMENOrdering Facility: [facility] Address: [address] [place] [address] Performed By: #### 2 4356-8 ####[facility] LABIA [id number] [place] [address] [place] RBC LM.HPF (Urine sed) [#/Area] 0-2 /HPF Normal 0-2 /HPF [facility] Comment on above: Order Comment: Speci men Type: URINE SPECIMENOrdering Facility: [facility] Address: [address] [place] [address] Performed By: #### 2 4356-8 ####[facility] LABIA [id number] [place] [address] [place] Specific gravity (U) [Rel density] 1.016 Normal 1.005-1.03 0 [facility] Comment on above: Order Comment: Speci men Type: URINE SPECIMENOrdering Facility: [facility] Address: [address] [place] [address] Performed By: #### 2 4356-8 ####[facility] LABIA [id number] [place] [address] [place] Urobilinogen Ql (U) 0.2 EU/dL Normal 0.2-1.0 EU/dL [facility] Comment on above: Order Comment: Speci men Type: URINE SPECIMENOrdering Facility: [facility] Address: [address] [place] [address] Performed By: #### 2 4356-8 ####[facility] LABIA [id number] [place] [address] [place] WBC LM.HPF (Urine sed) [#/Area] 0-5 /HPF Normal 0-5 /HPF [facility] Comment on above: Order Comment: Speci men Type: URINE SPECIMENOrdering Facility: [facility] Address: [address] [place] [address] Performed By: #### 2 4356-8 ####[facility] [id number] [place] [address] [place] Basic metabolic 2000 panelon 09-10-2024 Anion gap [Moles/Vol] 10 mmol/L Normal 8-15 [facility] Comment on above: Order Comment: Speci men Type: BLOOD SPECIMENOrdering Facility: [facility] Address: [address] [place] [address] Performed By: #### L IPNF, 49942-3 ####[facility] [id number] [place] [address] [place] Calcium [Mass/Vol] 9.9 mg/dL Normal 8.5-10.2 [facility] Comment on above: Order Comment: Speci men Type: BLOOD SPECIMENOrdering Facility: [facility] Address: [address] [place] [address] Performed By: #### L IPNF, 97019-2 ####[facility] LABCLIA [id number] [place] [id number] [place] Chloride [Moles/Vol] 103 mmol/L Normal 98-107 [facility] Comment on above: Order Comment: Speci men Type: BLOOD SPECIMENOrdering Facility: [facility] Address: [address] [place] [address] Performed By: #### L IPNF, 39412-3 ####[facility] LABCLIA [id number] [place] [address] [place] CO2 [Moles/Vol] 27 mmol/L Normal 22-30 [facility] Comment on above: Order Comment: Speci men Type: BLOOD SPECIMENOrdering Facility: [facility] Address: [address] [place] [address] Performed By: #### L IPNF, 93452-5 ####[facility] LABIA [id number] [place] [address] [place] Creatinine [Mass/Vol] 0.77 mg/dL Normal 0.58-0.96 [facility] Comment on above: Order Comment: Speci men Type: BLOOD SPECIMENOrdering Facility: [facility] Address: [address] [place] [address] Performed By: #### L IPNF, 06190-8 ####[facility] LABIA [id number] [place] [address] [place] Creatinine and Glomerular filtration rate.predicted panel (S/P/Bld) 77 mL/min/1.73m??? Normal >=60 [facility] Comment on above: Order Comment: Speci men Type: BLOOD SPECIMENOrdering Facility: [facility] Address: [address] [place] [address] Result Comment: Malka mated Glomerular Filtration Rate (eGFR) is calculated using the 2020 CKD-EPI creatinine equation. This equation utilizes serum creatinine, sex, and age as parameters. The creatinine assay has traceable calibration to isotope dilution-mass spectrometry. Refer to KDIGO guidelines for clinical interpretation. In patients with unstable renal function, e.g. those with acute kidney injury, the eGFR may not accurately reflect actual GFR. Performed By: #### L SENA, 71324-9 ####[facility] LABIA [id number] [place] [address] [place] Glucose [Mass/Vol] 194 mg/dL High 74-99 [facility] Comment on above: Order Comment: Noemi fernandes Type: BLOOD SPECIMENOrdering Facility: [facility] Address: [address] [place] [address] Result Comment: The Indian Diabetes Association (ADA) provides guidance for cutoff values for fasting glucose and random glucose. The ADA defines fasting as no caloric intake for at least 8 hours. Fasting plasma glucose results between 100 to 125 mg/dL indicate increased risk for diabetes (prediabetes). Fasting plasma glucose results greater than or equal to 126 mg/dL meet the criteria for diagnosis of diabetes. In the absence of unequivocal hyperglycemia, results should be confirmed by repeat testing. In a patient with classic symptoms of hyperglycemia or hyperglycemic crisis, random plasma glucose results greater than or equal to 200 mg/dL meet the criteria for diagnosis of diabetes. Reference: Standards of Medical Care in Diabetes 2016, Indian Diabetes Association. Diabetes Care. 2016.39(Suppl 1). Performed By: #### L SENA, 62846-5 ####[facility] LABIA [id number] [place] [id number] [place] Potassium [Moles/Vol] 5.2 mmol/L High 3.7-5.1 [facility] Comment on above: Order Comment: Noemi fernandes Type: BLOOD SPECIMENOrdering Facility: [facility] Address: [address] [place] [address] Performed By: #### L SENA, 12682-2 ####[facility] LABIA [id number] [place] [address] [place] Sodium [Moles/Vol] 140 mmol/L Normal 136-144 [facility] Comment on above: Order Comment: Speci men Type: BLOOD SPECIMENOrdering Facility: [facility] Address: [address] [place] [address] Performed By: #### L IPNF, 97349-1 ####[facility] LABCLIA [id number] [place] [address] [place] Urea nitrogen [Mass/Vol] 21 mg/dL Normal 7-21 [facility] Comment on above: Order Comment: Speci men Type: BLOOD SPECIMENOrdering Facility: [facility] Address: [address] [place] [address] Performed By: #### L IPNF, 54890-4 ####[facility] LABCLIA [id number] [address] [facility] CNOVon 09-10-2024 [facility] MARCI MARIE ([id number]) 1940 F DEF Date Time Provider Department 09/10/24 9:00 AM SHARONA BETTENCOURT [facility] During your visit today, we recorded the following information about you: Temperature Pulse Respiration Blood pressure 97.5 degrees 76/minute 18/minute 117/67 Weight 103.9 kg Sharona Bettencourt PA-C 09/10/2024 10:10 AM Signed Chief Complaint Patient presents with: Follow Up: Blood pressure HPI Marci Daylin Frank is a 84 year old female who presents here today for Chronic Medical Conditions.. Patient with complex history as below. Diabetes Mellitus: - Has not started insulin therapy due to concerns about managing dosage amidst current depression. - Issues with CGM adherence; device frequently detaches before the intended two-week period. - Insurance covers only two CGM devices per month; Marci unable to afford additional devices. - Reports chronic skin changes on lower extremities, described as rough skin with occasional pruritus and flaking. - Applies cream to lower extremities; has been advised by a lumber material handler that the skin condition is related to DM. - Denies current cellulitis; uses AANDD ointment on skin lesions. Depression: - Severe depressive episode three weeks ago, characterized by continuous crying over a weekend. - Has a history of discontinuing medications during depressive episodes. - Recently sought counseling; awaiting new medication regimen next . - Reports poor sleep quality, often getting only 3-4 hours per night. - Experiences nocturia around 03:00, followed by difficulty returning to sleep. - Reports feeling unsafe managing insulin therapy due to current mental state. 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 - 11 years ago; ongoing grief contributes to depression. - Stress from babysitting grandchildren; recently stopped due to safety concerns and health issues. Musical Ear Syndrome: - Diagnosed five years ago; symptoms include hearing music and news broadcasts. - Symptoms vary in intensity; can be so loud that it interferes with hearing the TV. - Scheduled to see Dr. Shah next week for further evaluation. - Believes that hearing aids may help alleviate symptoms; has not been able to afford them in the past. - Reports that the condition exacerbates depression. Cardiovascular Disease: - Last seen by automobile accessories installer Dr. Lamb approximately one year ago. - Has not been taking prescribed medication due to lapsed prescription and inability to schedule an appointment. - Reports edema in lower extremities; managed with hydrochlorothiazide and PRN Lasix. - Forgets to elevate legs at night, contributing to edema. Past medical history, appointments, medications, allergies reviewed. Previous Medical History PAST MEDICAL HISTORY Diagnosis Date Acquired deformity of left toe 03/21/2021 second and third digits Adjustment disorder with depressed mood 01/19/2020 Aortic stenosis, mild 12/02/[address] 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 Corns and callus 09/18/2016 Current severe episode of major depressive disorder with psychotic features without prior episode ([facility]) 01/19/2020 Diabetic eye exam ([facility]) 08/21/2016 Last Done: 08/09/2017 No Retinopathy Diaphragmatic hernia without mention of obstruction or gangrene Diastolic congestive heart failure ([facility]) 07/03/2022 Elevated alkaline phosphatase level 08/28/2018 Elevated serum GGT level 07/03/2017 Essential hypertension 07/13/2014 Foot callus 03/21/2021 SAMEER (generalized anxiety disorder) 09/05/2018 Gastroesophageal reflux disease with esophagitis 04/23/2015 Herpes zoster mild occasional neuralgia in left cervical area. Hiatal hernia History of colon polyps Mixed hyperlipidemia Morbid obesity with BMI of 40.0-44.9, adult ([facility]) 06/19/2016 Multiple thyroid nodules 03/24/2021 03/2021: Needs yearly f/u for 5 yrs OAB (overactive bladder) 10/10/2022 Osteopenia 04/24/2011; Start vitamin d 1,000/day and RE-CHECK 2013 Personal history of other malignant neoplasm of skin 02/26/2009 Schatzki's ring Sebaceous cyst 07/03/2017 lower anterior neck Skin cancer, basal cell 04/23/2015 nose Stricture and stenosis of esophagus egd/dilatation by Dr. Hollins; Tinnitus of both ears 12/26/2021 Due to hearing loss. Type 2 diabetes mellitus with proteinuria ([facility]) 07/07/2013 Uncontrolled type 2 diabetes mellitus with hyperglycemia ([facility]) 01/02/2020 Venous (peripheral) insufficiency 12/21/2015 Vitamin D deficiency 11/26/2015 Previous Surgical History PAST SURGICAL HISTORY Procedure Lateralit (more content not included)... Normal [facility] HbA1c (Bld)on 09-10-2024 Average glucose Estimated from glycated hemoglobin (Bld) [Mass/Vol] 255 mg/dL [facility] Comment on above: eAG: (Estimated aver age glucose) is a calculated value from HgbA1c and is ambulatory services representative of the average blood glucose level in the last 2-3 month period. HbA1c (Bld) [Mass fraction] 10.5 % High 4.3 - 5.6 % [facility] Comment on above: Indian Diabetes As sociation guidelines indicate that patients with HgbA1c in the range 5.7-6.4% are at increased risk for development of diabetes, and intervention by lifestyle modification may be beneficial. HgbA1c greater or equal to 6.5% is considered diagnostic of diabetes. Interpretation and review of laboratory results Abnormal [facility] Average glucose Estimated from glycated hemoglobin (Bld) [Mass/Vol] 255 mg/dL Normal [facility] Comment on above: Order Comment: Noemi fernandes Type: BLOOD SPECIMENOrdering Facility: [facility] Address: [address] [place] [address] Result Comment: eAG: (Estimated average glucose) is a calculated value from HgbA1c and is ambulatory services representative of the average blood glucose level in the last 2-3 month period. Performed By: #### 5 5454-3 ####[facility] LABCLIA [id number] [place] [address] [place] HbA1c (Bld) [Mass fraction] 10.5 % High 4.3-5.6 [facility] Comment on above: Order Comment: Noemi fernandes Type: BLOOD SPECIMENOrdering Facility: [facility] Address: [address] [place] [address] Result Comment: Amer ican Diabetes Association guidelines indicate that patients with HgbA1c in the range 5.7-6.4% are at increased risk for development of diabetes, and intervention by lifestyle modification may be beneficial. HgbA1c greater or equal to 6.5% is considered diagnostic of diabetes. Performed By: #### 5 5454-3 ####[facility] LABCLIA [id number] [place] [address] [place] LIPID PANEL, NONFASTINGon Cholesterol [Mass/Vol] 180 mg/dL Normal <200 [facility] Comment on above: Order Comment: Noemi fernandes Type: BLOOD SPECIMENOrdering Facility: [facility] Address: [address] [place] [address] Result Comment: <200 mg/dL, Desirable 200-239 mg/dL, Borderline high >239 mg/dL, High Performed By: #### L IPNF, 38665-1 ####[facility] LABCLIA [id number] [place] [address] [place] HDL CHOLESTEROL, NF 86 mg/dL Normal >39 [facility] Comment on above: Order Comment: Noemi fernandes Type: BLOOD SPECIMENOrdering Facility: [facility] Address: [address] [place] [address] Result Comment: 40-5 9 mg/dL, Acceptable >59 mg/dL, High: Negative risk factor for coronary heart disease <40 mg/dL, Low: Positive risk factor for coronary heart disease Performed By: #### L SENA, 90564-6 ####[facility] LABCLIA [id number] [address] LDL CHOLESTEROL CALCULATED, NF 79 mg/dL Normal <100 [facility] Comment on above: Order Comment: Belkysariane fernandes Type: BLOOD SPECIMENOrdering Facility: [facility] Address: [address] [place] [address] Result Comment: <100 mg/dL, Optimal 100-129 mg/dL, Near optimal/above optimal 130-159 mg/dL, Borderline high 160-189 mg/dL, High >189 mg/dL, Very high Secondary prevention optimal LDL Cholesterol levels are recommended to be <70 mg/dL LDL cholesterol is calculated using the Durham-NIH equation. Performed By: #### L SENA, 10973-9 ####[facility] LABCLIA [id number] [address] [facility] LDL/HDL RATIO, NF 0.92 mg/dL Normal <2.54 [facility] Comment on above: Order Comment: Noemi fernandes Type: BLOOD SPECIMENOrdering Facility: [facility] Address: [address] [place] [address] Result Comment: Refe rence: 1. National Cholesterol Education Program ATP III Guideline At-A-Glance Quick Desk Reference: National Heart, Lung, and Blood Mcdougal. National Institutes of Health. 2001: NIH Publication No. 01-3305. 2. An International Atherosclerosis Society position paper: global recommendations for the management of dyslipidemia: executive summary, Atherosclerosis. 2014: 232(2):410-413. Performed By: #### L SENA, 80694-2 ####[facility] LABCLIA [id number] [place] [id number] [place] NON HDL CHOL, NF 94 mg/dL Normal <130 [facility] Comment on above: Order Comment: Speci men Type: BLOOD SPECIMENOrdering Facility: [facility] Address: [address] [place] [address] Result Comment: <130 mg/dL, Optimal 130-159 mg/dL, Near optimal/above optimal 160-189 mg/dL, Borderline high 190-219 mg/dL, High >219 mg/dL, Very high Secondary prevention optimal non HDL Cholesterol levels are recommended to be <100 mg/dL Performed By: #### L SENA, 50714-7 ####[facility] LABCLIA [id number] [place] [address] [place] T CHOL/HDL RATIO NF 2.09 mg/dL Normal <5.10 [facility] Comment on above: Order Comment: Speci men Type: BLOOD SPECIMENOrdering Facility: [facility] Address: [address] [place] [address] Performed By: #### L IPNF, 50230-6 ####[facility] LABCLIA [id number] [place] [address] [place] TRIGLYCERIDES, NF 86 mg/dL Normal <150 [facility] Comment on above: Order Comment: Speci men Type: BLOOD SPECIMENOrdering Facility: [facility] Address: [address] [place] [address] Result Comment: <150 mg/dL, Normal 150-199 mg/dL, Borderline high 200-499 mg/dL, High >499 mg/dL, Very high Performed By: #### L IPNF, 98196-0 ####[facility] LABIA [id number] [place] [address] [place] VLDL CHOLESTEROL, NF 13 mg/dL Normal <30 [facility] Comment on above: Order Comment: Speci men Type: BLOOD SPECIMENOrdering Facility: [facility] Address: [address] [place] [address] Performed By: #### L IP, 79586-9 ####[facility] ALENA [id number] [facility] [place] [address] STATES OF [facility] CNOVon 09-05-2024 CNOV Office Visit (PODIWS ) MARCI MARIE ([id number]) 1940 F DEF Date Time Provider Department 09/05/24 1:40 PM MALIA SIMONS PODIWS During your visit today, we recorded the following information about you: Karen Knowles LPN 09/05/2024 1:59 PM Signed AMB ROOMING INTAKE FLOWSHEET DATA Patient presents with: Left Foot - Diabetic Foot Care, Established Patient, Follow Up, Numbness Right Foot - Diabetic Foot Care, Established Patient, Follow Up, Numbness MEGHANA Stone Matthew 09/05/2024 1:56 PM Addendum Diabetes Foot Care Instructions When you have diabetes, proper foot care is very important. Poor foot care may lead to amputation of a foot or leg. As a person with diabetes, you are more vulnerable to foot problems, because diabetes can damage your nerves and reduce blood flow to your feet. Here are some diabetes foot care tips to follow: Wash and Dry Your Feet Daily Use mild soaps Use warm water Pat your skin dry; do not rub. Thoroughly dry your feet. After washing, use lotion on your feet to prevent cracking. Do not put lotion between your toes. Examine Your Feet Each Day Check the tops and bottoms of your feet. Have someone else look at your feet if you cannot see them. Check for dry, cracked skin. Look for blisters, cuts, scratches, or other sores. Check for redness, increased warmth, or tenderness when touching any area of your feet. Check for ingrown toenails, corns, and calluses. If you get a blister or sore from your shoes, do not pop it. Apply a bandage and wear a different pair of shoes. Take Care of Your Toenails Cut toenails after bathing, when they are soft. Cut toenails straight across and smooth with a nail file. Avoid cutting into the corners of toes. Do not cut cuticles. If you have neuropathy (or decreased sensation in your feet) a director of brand marketing should always cut your toenails. Be Careful When Exercising Walk and exercise in comfortable shoes. Do not exercise when you have open sores on your feet. Protect Your Feet With Shoes and Socks Never go barefoot. Always protect your feet by wearing shoes or hard-soled slippers or footwear. Avoid shoes with high heels and pointed toes. Avoid shoes that expose your toes or heels (such as open-toed shoes or sandals). These types of shoes increase your risk for injury and potential infections. Try on new footwear with the type of socks you usually wear. Do not wear new shoes for more than an hour at a time. Change your socks daily. Look and feel inside your shoes before putting them on to make sure there are no foreign objects or rough areas. Avoid tight socks. Wear natural-fiber socks (cotton, wool, or a cotton-wool blend). Wear special shoes if your health care provider recommends them. Wear shoes/boots that will protect your feet from various weather conditions (cold, moisture, etc.). Make sure your shoes fit properly. If you have neuropathy (nerve damage), you may not notice that your shoes are too tight. Perform the footwear test described below. Footwear Test Use this simple test to see if your shoes fit correctly: Stand on a piece of paper. (Make sure you are standing and not sitting, because your foot changes shape when you stand.) Trace the outline of your foot. Trace the outline of your shoe. Compare the tracings: Is the shoe too narrow? Is your foot crammed into the shoe? The shoe should be at least 1/2 inch longer than your longest toe and as wide as your foot. Proper Shoe Choices The following types of shoes are best for people with diabetes Closed toes and heels Leather uppers without a seam inside At least 1/2 inch extra space at the end of your longest toe Inside of shoe should be soft with no rough areas Outer sole should be made of stiff material Shoes should be at least as wide as your feet Tips for Foot Care in Diabetes Don't wait to treat a minor foot problem if you have diabetes. Follow your health care provider's guidelines and first aid guidelines. Report foot injuries and infections to your health care provider immediately. Check water temperature with your elbow, not your foot. Do not use a heating pad on your feet. Do not cross your legs. Do not self-treat your corns, calluses, or other foot problems. Go to your health care provider or director of brand marketing to treat these conditions. You had ingrowing toenail of right great toe. I don't feel this was athlete's foot. I think rather, it was the beginning of an ingrown toenail. I managed to cut this back. Apply topical antibiotic on the toe daily for the next few days until healed. If you have any issues, contact the office. Could give consideration into removal of the toenail in the future. Malia Simons 09/05/2024 1:59 PM Signed Last saw pcp: 05/14/24 Subjective: Patient presents to clinic c/o painful toenails. They (more content not included)... Normal [facility] 12 Lead EKGon 08-21-2024 12 Lead EKG [facility] Cardiovascular Services [address] [place] [address] 12 Lead EKG 08/21/24 0856 MR#: [id number] Acct: [id number] Name: MARCI MARIE Rep #: [id number] : 1940 84 From: Darrick Shay MD Attending Dr: Status: DEP ER Ordering Dr: Evon Wilson DO Date: 08/21/24 Location: ED Sex: F C Admitted: Test Reason : Blood Pressure : */* mmHG Vent. Rate : 76 BPM Atrial Rate : 76 BPM P-R Int : 186 ms QRS Dur : 86 ms QT Int : 390 ms P-R-T Axes : 66 23 43 degrees QTcB Int : 438 ms Sinus rhythm with Premature supraventricular complexes Otherwise normal ECG Confirmed by LUCIUS ACOSTA, ALMA DELIA ([id number]), design editor SUZANNA LANCE ([id number]) on 08/26/2024 6:51:13 AM Referred By: TAO Confirmed By: ALMA DELIA SHAY MD 08/26/2451 Date Darrick Shay MD CC: Dr. Arturo Amaya MD; Dr. Evon Wilson, DO Signed Normal [facility] Absolute lymphocyte countOrd ered By: Evon Wilson on 08-21-2024 Lymphocytes Auto (Unsp spec) [#/Vol] 1.30 10*3/uL 0.83-4.51 [facility] Absolute neutrophil countOrd ered By: Evon Wilson on 08-21-2024 Neutrophils (Bld) [#/Vol] 2.9 10*3/uL 2.0-7.7 [facility] Anion gap in Serum or Plasma Ordered By: Evon Wilson on 08-21-2024 Anion gap [Moles/Vol] 10 mmol/L 5-15 [facility] Automated lymphocyte count a s percentage of total leukocytesOrdered By: Evon Wilson on 08-21-2024 Lymphocytes/100 WBC Auto (Unsp spec) 26.3 % 19-41 [facility] BUN/creatinine ratioOrdered By: Evon Wilson on 08-21-2024 Urea nitrogen/Creatinine [Mass ratio] 22.6 mg/mg High 10- [facility] Basic Metabolic Profile (BMP )on 08-21-2024 BUN/CRE 22.6 RATIO High 01-19 [facility] Comment on above: Performed By: #### L 100.0100, L500.2500, L501.4021 #### [facility] [address] [place], [address] Calcium [Mass/Vol] 9.8 mg/dL Normal 7.6-11.0 [facility] Comment on above: Performed By: #### L 100.0100, L500.2500, L501.4021 #### [facility] [address] [place], [address] Chloride [Moles/Vol] 104 mmol/L Normal 98-108 [facility] Comment on above: Performed By: #### L 100.0100, L500.2500, L501.4021 #### [facility] [address] [place], [address] CO2 [Moles/Vol] 25.7 mmol/L Normal 21.0-32.0 [facility] Comment on above: Performed By: #### L 100.0100, L500.2500, L501.4021 #### [facility] [address] [place], [address] Creatinine [Mass/Vol] 0.77 mg/dL Normal 0.70-1.20 [facility] Comment on above: Performed By: #### L 100.0100, L500.2500, L501.4021 #### [facility] [address] [place], [address] ECRCL 66.02 ml/min Normal 50-250 [facility] Comment on above: Performed By: #### L 100.0100, L500.2500, L501.4021 #### [facility] [address] [place], [address] GAP 10 Normal 5-15 [facility] Comment on above: Performed By: #### L 100.0100, L500.2500, L501.4021 #### [facility] [address] [place], [address] GFR/1.73 sq M.predicted among non-blacks MDRD (S/P/Bld) [Vol rate/Area] 76 mL/min/{1.73_m2} Normal >60 [facility] Comment on above: Result Comment: mL/m in/1.73m2 CKD-EPI Creatinine Equation (2020) Performed By: #### L 100.0100, L500.2500, L501.4021 #### [facility] [address] [place], [address] Glucose [Mass/Vol] 210 mg/dL High 70-99 [facility] Comment on above: Performed By: #### L 100.0100, L500.2500, L501.4021 #### [facility] [address] [place], [address] Potassium [Moles/Vol] 4.2 mmol/L Normal 3.3-5.1 [facility] Comment on above: Performed By: #### L 100.0100, L500.2500, L501.4021 #### [facility] [address] [place], [address] Sodium [Moles/Vol] 140 mmol/L Normal 133-145 [facility] Comment on above: Performed By: #### L 100.0100, L500.2500, L501.4021 #### [facility] [address] [place], [address] Urea nitrogen [Mass/Vol] 18 mg/dL Normal 4-19 [facility] Comment on above: Performed By: #### L 100.0100, L500.2500, L501.4021 #### [facility] [address] [place], [address] Basophil percentageOrdered B y: Remus Ungur on 08-21-2024 Basophils/100 WBC (Bld) 1.2 % High 0-1 [facility] Bilirubin Test strip Ql (U)O rdered By: Remus Ungur on 08-21-2024 Bilirubin Ql (U) Negative Negative [facility] Brain/Head without Contrasto n 08-21-2024 Brain/Head without Contrast [facility] Imaging Services [address] [place] [address] Brain/Head without Contrast MR#: [id number] Acct: [id number] Name: MARCI MARIE Rep #: [id number] : 1940 F 84 From: Jordan Gtz MD PCP: Dr. Arturo Amaya MD Status: REG ER Study: Brain/Head without Contrast Date of Exam: 08/01 05/27 Exam# [id number] Ordering Dr: Evon Wilson DO EXAM: NONCONTRAST CT SCAN OF THE HEAD CLINICAL HISTORY: Headache, dizziness COMPARISON: June 16, 2024 TECHNIQUE: Serial axial series through the head were obtained without contrast. 2-D coronal and sagittal reformats were then obtained. FINDINGS: Brain: There is no acute large territorial infarct, intracranial hemorrhage, midline shift or mass effect. There are atherosclerotic vascular calcifications involving the bilateral carotid siphons. The sella and pineal gland regions appear unremarkable. There is no evidence of cerebellar tonsillar herniation. There is low-density in the deep white matter on the right and left, consistent with chronic ischemic changes, similar to the prior. Ventricles: There is no acute hydrocephalus. Basilar cisterns are patent. Paranasal sinuses: Well-aerated Mastoid air cells: Well-aerated. Calvarium: The bony calvarium is intact. Orbits: The bilateral globes are symmetric, without retrobulbar compressive mass lesion or hemorrhage. CT/Brain/Head without Contrast IMPRESSION: There is low-density in the deep white matter on the right and left, consistent with chronic ischemic changes, similar to the prior. No acute intracranial pathology. Reading Location: [id number] CC: Dr. Arturo Amaya MD; Dr. Evon Wilson DO Charging Plug Placer: Signed Normal [facility] CBC W/Diff, Automatedon 08-01 Absolute Lymph 1.30 X10 3/uL Normal 0.83-4.51 [facility] Comment on above: Performed By: #### L 100.0100, L500.2500, L501.4021 #### [facility] [address] [place], [address] Absolute Neut 2.9 X10 3/uL Normal 2.0-7.7 [facility] Comment on above: Performed By: #### L 100.0100, L500.2500, L501.4021 #### [facility] [address] [place], [address] Basophils/100 WBC (Bld) 1.2 % High 0-1 [facility] Comment on above: Performed By: #### L 100.0100, L500.2500, L501.4021 #### [facility] [address] [place], [address] Eosinophils/100 WBC (Bld) 3.2 % Normal 0-5 [facility] Comment on above: Performed By: #### L 100.0100, L500.2500, L501.4021 #### [facility] [address] [place], [address] Erythrocyte distribution width (RBC) [Ratio] 13.4 % Normal 11.6-14.6 [facility] Comment on above: Performed By: #### L 100.0100, L500.2500, L501.4021 #### [facility] [address] [place], [address] Hematocrit (Bld) [Volume fraction] 41.6 % Normal 37-47 [facility] Comment on above: Performed By: #### L 100.0100, L500.2500, L501.4021 #### [facility] [address] [place], [address] Hemoglobin (Bld) [Mass/Vol] 13.8 g/dL Normal 12.0-15.0 [facility] Comment on above: Performed By: #### L 100.0100, L500.2500, L501.4021 #### [facility] [address] [place], [address] IG% 0.200 Normal 0.0-0.9 [facility] Comment on above: Result Comment: IG% - Immature Granulocytes (promyelocytes, myelocytes and metamyelocytes) > 1% indicates that a LEFT SHIFT is Present. Performed By: #### L 100.0100, L500.2500, L501.4021 #### [facility] [address] [place], [address] Lymphocytes/100 WBC (Bld) 26.3 % Normal 19-41 [facility] Comment on above: Performed By: #### L 100.0100, L500.2500, L501.4021 #### [facility] [address] [place], [address] MCH (RBC) [Entitic mass] 31.9 pg Normal 27.0-32.0 [facility] Comment on above: Performed By: #### L 100.0100, L500.2500, L501.4021 #### [facility] [address] [place], [address] MCHC (RBC) [Mass/Vol] 33.2 g/dL Normal 32-36 [facility] Comment on above: Performed By: #### L 100.0100, L500.2500, L501.4021 #### [facility] [address] [place], [address] MCV (RBC) [Entitic vol] 96.3 fL Normal 81-99 [facility] Comment on above: Performed By: #### L 100.0100, L500.2500, L501.4021 #### [facility] [address] [place], [address] Monocytes/100 WBC (Bld) 9.9 % Normal 0-10 [facility] Comment on above: Performed By: #### L 100.0100, L500.2500, L501.4021 #### [facility] [address] [place], [address] Neutrophils/100 WBC (Bld) 59.2 % Normal 47-70 [facility] Comment on above: Performed By: #### L 100.0100, L500.2500, L501.4021 #### [facility] [address] [place], [address] Nucleated RBC (Bld) [#/Vol] 0 10*3/uL Normal 0-5 [facility] Comment on above: Performed By: #### L 100.0100, L500.2500, L501.4021 #### [facility] [address] [place], [address] Platelet mean volume (Bld) [Entitic vol] 11.6 fL Normal 6.2-12.0 [facility] Comment on above: Performed By: #### L 100.0100, L500.2500, L501.4021 #### [facility] [address] [place], [address] Platelets (Bld) [#/Vol] 158 10*3/uL Normal 150-450 [facility] Comment on above: Performed By: #### L 100.0100, L500.2500, L501.4021 #### [facility] [address] [place], [address] RBC (Bld) [#/Vol] 4.32 10*6/uL Normal 4.2-5.4 [facility] Comment on above: Performed By: #### L 100.0100, L500.2500, L501.4021 #### [facility] [address] [place], [address] RDW SD 47.4 fl High 35.1-43.9 [facility] Comment on above: Performed By: #### L 100.0100, L500.2500, L501.4021 #### [facility] [address] [place], [address] WBC (Bld) [#/Vol] 5.0 10*3/uL Normal 4.4-11.0 [facility] Comment on above: Performed By: #### L 100.0100, L500.2500, L501.4021 #### [facility] [address] [place], [address] Carbon dioxide, total [Moles /volume] in Central venous bloodOrdered By: Evon Wilson on 08-21-2024 CO2 [Moles/Vol] 25.7 mmol/L 21.0-32.0 [facility] Chloride assayOrdered By: Leigha Wilson on 08-21-2024 Chloride [Moles/Vol] 104 mmol/L 98-108 [facility] Emergency Department Summary on 08-21-2024 Emergency Department Summary [facility] Medical Records Department [address] [place] [address] Emergency Department Summary 08/21/24 MR#: [id number] Acct: [id number] Name: MARCI MARIE Rep #: [id number] : 1940 84 From: Evon Wilson DO PCP: Dr. Arturo Amaya MD Status:DEP ER Location: ED HPI History of Present Illness Chief Complaint: Hypertension Detail of Chief Complaint: Headache, dizziness, hypertension Informant: patient Narrative Narrative: Patient presents to the emergency department from home via EMS with complaint of a headache that started yesterday. Patient states that this morning she was dizzy and felt like she could not walk very well. She describes vertiginous like symptoms. 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 Patient states that she was diagnosed with this by her ear nose and throat physician related to her hearing loss. She gets headaches from time to time but typically they are posterior and this 1 is the front of her head. She had hard time sleeping last night. She describes nausea. She has had no vomiting. She denies fever or recent illness. She did fall about 8 weeks ago and was seen in the emergency department at which time she had a CT of her brain and also continued to have headaches afterwards and had an MRI of her brain apparently that was unremarkable. Patient also has history of hypertension and noted that this morning her blood pressure was higher than usual. She did not take her blood pressure medicine this morning. She denies chest pain or shortness of breath. She denies abdominal pain. She denies urinary symptoms. [facility] Medical History History of esophageal dilatation Obesity (BMI 35.0-39.9 without comorbidity) Edema of right lower extremity due to peripheral venous insufficiency Edema of left lower extremity due to peripheral venous insufficiency Edema of right lower extremity Edema of left lower extremity Swelling of right lower extremity Swelling of left lower extremity Venous stasis dermatitis Atrial fibrillation Overactive bladder Esophageal stricture Hearing deficit Tinnitus History of basal cell cancer Diaphragmatic hernia Diabetic neuropathy Aortic stenosis Hyperlipidemia Chronic venous insufficiency Osteoporosis Thrombocytopenia Metabolic acidosis Hypokalemia Gastroenteritis Acute kidney injury Hiatal hernia Dyslipidemia HTN (hypertension) GERD (gastroesophageal reflux disease) Esophageal spasm Diabetes mellitus Home Medications ???Medication ???Instructions ???Recorded ???Last Taken ???Type metformin 500 mg tablet 500 mg PO UD diabetes 07/05/17 History hydrochlorothiazide 25 mg tablet 25 mg PO DAILY diuretic 04/01/18 0 07/29/23 05:00 History carvedilol 3.125 mg tablet (Coreg) 3.125 mg PO BID BP 10/10/22 05/04/26 History nitroglycerin 0.4 mg sublingual 0.4 mg sublingual Q5M 10/10/22 Unk nown History tablet (Nitrostat) sitagliptin phosphate 100 mg 100 mg PO DAILY blood sugar 07/29/23 History tablet (Januvia) furosemide 80 mg tablet 40 mg (1/2 x 80 mg) PO DAILY PRN 0 08/14/23 Unknown Rx edema 30 days #0 tabs amlodipine 5 mg tablet 5 mg PO DAILY 04/22/24 08/20/24 Hi story cefadroxil 500 mg capsule 500 mg PO BID 04/22/24 Unknown His tory clonidine HCl 0.1 mg tablet 0.1 mg PO BID PRN SBP > 170 #10 Unknown Rx tabs glimepiride 2 mg tablet 2 mg PO QPM 04/22/24 08/20/24 Hist ory lisinopril 40 mg tablet 40 mg PO BID 04/22/24 08/20/24 His tory pantoprazole 40 mg tablet,delayed 40 mg PO QDAY #90 tabs 04/30/24 U nknown Rx release meclizine 25 mg chewable tablet 25 mg PO TID PRN dizziness #10 tab s 08/21/24 Unknown Rx (Antivert) Allergy/AdvReac Type Severity Reaction Status Date / Time acetaminophen (From Vicodin) Allergy Other Verified 08/21/24 08:47 celecoxib (From Celebrex) Allergy Unknown Verified 08/21/24 08:47 codeine Allergy Unknown Verified 08/21/24 08:47 hydrocodone (From Vicodin) Allergy Other Verified 08/21/24 08:47 morphine Allergy Other Verified 08/21/24 08:47 niacin Allergy Unknown Verified 08/21/24 08:47 Penicillins Allergy Unknown Verified 08/21/24 08:47 prednisone Allergy Unknown Verified 08/21/24 08:47 Sulfa (Sulfonamide Allergy Unknown Verified 08/21/24 08:47 Antibiotics) Family History Mother Asthma Father Heart disease Hypertension Arthritis Surgical History History of tonsillectomy History of nasal surgery History of surgery on left wrist History of cholecystectomy History repair broken nose history ORIF left wrist History of laparoscopic cholecystectomy Social History (Revi (more content not included)... Normal [facility] Eosinophil percentageOrdered By: Evon Wilson on 08-21-2024 Eosinophils/100 WBC (Bld) 3.2 % 0-5 [facility] Erythrocyte distribution wid th ratioOrdered By: Evon Wilson on 08-21-2024 Erythrocyte distribution width (RBC) [Ratio] 13.4 % 11.6-14.6 [facility] Erythrocyte distribution wid th standard deviationOrdered By: Evon Wilson on 08-21-2024 Erythrocyte distribution width (RBC) [Ratio] 47.4 fl High 35.1-43.9 [facility] Glomerular filtration rate ( GFR) estimation/1.73 sq m using serum, plasma, or whole bOrdered By: Evon Wilson on 08-21-2024 GFR/1.73 sq M.predicted among non-blacks MDRD (S/P/Bld) [Vol rate/Area] 76 mL/min/{1.73_m2} >60 [facility] Comment on above: mL/min/1.73m2 CKD-EP I Creatinine Equation (2020) Hematocrit Auto (Bld) [Volum e fraction]Ordered By: Evon Wilson on 08-21-2024 Hematocrit (Bld) [Volume fraction] 41.6 % 37-47 [facility] Hemoglobin measurementOrdere d By: Evon Wilson on 08-21-2024 Hemoglobin (Bld) [Mass/Vol] 13.8 g/dL 12.0-15.0 [facility] Immature granulocytes/100 WB C Auto (Bld)Ordered By: Evon Wilson on 08-21-2024 Immature granulocytes/100 WBC (Bld) 0.200 % 0.0-0.9 [facility] Comment on above: IG% - Immature Granu locytes (promyelocytes, myelocytes and metamyelocytes) > 1% indicates that a LEFT SHIFT is Present. Ketones Test strip Ql (U)Ord ered By: Evon Wilson on 08-21-2024 Ketones Ql (U) Negative Negative [facility] [facility] L499.0042on 08-21-2024 Trop T High Sen 15 ng/L High <=14 [facility] Comment on above: Result Comment: Hemo lysis present, Results??could be affected. ?? Performed By: #### L 499.0042 #### [facility] [address] [place], [address] L499.0043on 08-21-2024 Trop T High Sen Normal <=14 [facility] Comment on above: Result Comment: Canc elled via OM: Order cancelled - Patient discharged Performed By: #### L 499.0043 #### [facility] [address] [place], [address] L501.4021on 08-21-2024 Trop T High Sen 18 ng/L High <=14 [facility] Comment on above: Performed By: #### L 100.0100, L500.2500, L501.4021 ####[facility] [address] [place], [address] MCV (mean corpuscular volume ) determinationOrdered By: Evon Wilson on 08-21-2024 MCV (RBC) [Entitic vol] 96.3 fL 81-99 [facility] Mean corpuscular hemoglobin (MCH) determinationOrdered By: Evon Wilson on 08-21-2024 MCH (RBC) [Entitic mass] 31.9 pg 27.0-32.0 [facility] Mean corpuscular hemoglobin concentration (MCHC) determinationOrdered By: Evon Wilson on 08-21-2024 MCHC (RBC) [Mass/Vol] 33.2 g/dL 32-36 [facility] Mean platelet volume determi nationOrdered By: Evon Wilson on 08-21-2024 Platelet mean volume (Bld) [Entitic vol] 11.6 fL 6.2-12.0 [facility] Microscopic analysis of urin e for red blood cells (RBC)Ordered By: Evon Wilson on 08-21-2024 Microscopic analysis of urine for red blood cells (RBC) 0 SEEN /hpf 0-5 [facility] Monocyte percentageOrdered B y: Evon Wilson on 08-21-2024 Monocytes/100 WBC (Bld) 9.9 % 0-10 [facility] Mucus LM Ql (Urine sed)Order ed By: Evon Wilson on 08-21-2024 Mucus Ql (Urine sed) 0 SEEN /hpf [facility] Neutrophil percentageOrdered By: Evon Wilson on 08-21-2024 Neutrophils/100 WBC (Bld) 59.2 % 47-70 [facility] Nitrite Test strip Ql (U)Ord ered By: Evon Wilson on 08-21-2024 Nitrite Ql (U) Negative Negative [facility] Nucleated red blood cell per centageOrdered By: Evon Wilson on 08-21-2024 Nucleated RBC/100 WBC (Bld) [Ratio] 0 % 0-5 [facility] Platelet countOrdered By: Leigha Wilson on 08-21-2024 Platelets (Bld) [#/Vol] 158 10*3/uL 150-450 [facility] Potassium measurement (mass/ volume)Ordered By: Evon Wilson on 08-21-2024 Potassium (Unsp spec) [Mass/Vol] 4.2 mmol/L 3.3-5.1 [facility] Protein Test strip Ql (U)Ord ered By: Evon Wilson on 08-21-2024 Protein Ql (U) 15 mg/dl High Negative [facility] RBC Auto (Bld) [#/Vol]Ordere d By: Evon Wilson on 08-21-2024 RBC (Bld) [#/Vol] 4.32 10*6/uL 4.2-5.4 [facility] Serum creatinine measurement (mass/volume)Ordered By: Evon Wilson on 08-21-2024 Creatinine [Mass/Vol] 0.77 mg/dL 0.70-1.20 [facility] Serum glucose measurement (m ass/volume)Ordered By: Evon Wilson on 08-21-2024 Glucose [Mass/Vol] 210 mg/dL High 70-99 [facility] Serum or plasma calcium stephanie urement (mass/volume)Ordered By: Evon Wilson on 08-21-2024 Calcium [Mass/Vol] 9.8 mg/dL 7.6-11.0 [facility] Serum or plasma urea nitroge n measurement (mass/volume)Ordered By: Evon Wilson on 08-21-2024 Urea nitrogen [Mass/Vol] 18 mg/dL 4-19 [facility] Sodium levelOrdered By: Nurys Wilson on 08-21-2024 Sodium [Moles/Vol] 140 mmol/L 133-145 [facility] Squamous epithelial cells de tection in urine sediment by light microscopyOrdered By: Evon Wilson on 08-21-2024 Epithelial cells.squamous LM Ql (Urine sed) 0-5 SEEN /hpf - [facility] Troponin T.cardiac [Mass/vol ume] in Serum or Plasma by High sensitivity methodOrdered By: Evon Wilson on 08-21-2024 Troponin T.cardiac High sensitivity method [Mass/Vol] 15 ng/L High <14 [facility] Comment on above: Hemolysis present, R esults could be affected. Troponin T.cardiac High sensitivity method [Mass/Vol] 18 ng/L High <14 [facility] Urinalysis, Completeon 08-21 EPI,SQUAMOUS 0-5 SEEN Normal 5-10 [facility] Comment on above: Order Comment: CLEAN CATCH Performed By: #### L 400.0001 ####[facility] [address] [place], [address] BACTERIA 0 SEEN Normal None Seen [facility] Comment on above: Order Comment: CLEAN CATCH Performed By: #### L 400.0001 ####[facility] [address] [place], [address] Mucus Ql (Urine sed) 0 SEEN Normal [facility] Comment on above: Order Comment: CLEAN CATCH Performed By: #### L 400.0001 ####[facility] [address] [place], [address] RBC 0 SEEN Normal 0-5 [facility] Comment on above: Order Comment: CLEAN CATCH Performed By: #### L 400.0001 ####[facility] [address] [place], [address] WBC 0 SEEN Normal 0-5 [facility] Comment on above: Order Comment: CLEAN CATCH Performed By: #### L 400.0001 ####[facility] [address] [place], [address] Urine clarityOrdered By: Chiquita Wilson on 08-21-2024 Clarity (U) Clear Clear [facility] Urine color determinationOrd ered By: Evon Wilson on 08-21-2024 Color (U) Yellow Yellow [facility] Urine glucose detectionOrder ed By: Evon Wilson on 08-21-2024 Glucose Ql (U) 250 mg/dl High Normal [facility] Urine leukocyte esterase det ection by dipstickOrdered By: Evon Wilson on 08-21-2024 Leukocyte esterase Test strip Ql (U) Negative Negative [facility] Urine pHOrdered By: Evon chilel on 08-21-2024 pH (U) 7.0 [pH] 5.0 - 8.0 [facility] Urine sediment bacteria coun t by microscopy (number/high power field)Ordered By: Evon Wilson on 08-21-2024 Bacteria LM.HPF (Urine sed) [#/Area] 0 /[HPF] None Seen [facility] Urine specific gravity measu rementOrdered By: Evon Wilson on 08-21-2024 Specific gravity (U) [Rel density] 1.010 1.002-1.03 0 [facility] Urine urobilinogen measureme ntOrdered By: Evon Wilson on 08-21-2024 Urobilinogen Ql (U) Normal mg/dl Normal [facility] White blood cell (WBC) count Ordered By: Evon Wilson on 08-21-2024 WBC (Bld) [#/Vol] 5.0 10*3/uL 4.4-11.0 [facility] White blood cell countOrdere d By: Evon Wilson on 08-21-2024 White blood cell count 0 SEEN /hpf 0-5 [facility] CNCOon 08-11-2024 CNCO Letter Text Normal [facility] CNPNon 07-10-2024 CNPN Telephone (PODIWS) MARCI MARIE ([id number]) 1940 F DEF Date Time Provider Department 07/10/24 MALIA SIMONS PODIW During your visit today, we recorded the following information about you: Amanda Agosto MA 07/10/2024 11:00 AM Signed Message on voice mail to return call: Please give the message below from provider: Malia Simosn to [facility] Podiatry Pool 07/10/24 8:05 AM Please call patient to inform her that her circulation on right foot is normal. The circulation however on the left foot is decreased. We can review these results at follow-up. I certainly would not recommend any removal of the toenails unless she was seen by vascular prior LEANA Reeves Amelia, LPN 07/30/2024 11:36 AM Signed Called patient to provide below results. No response. Left VM. MEGHANA StoneKarenMEGHANA 08/15/2024 3:55 PM Signed Patient to be seen on 09/05/2024. MEGHANA StoneKarenMEGHANA 08/15/2024 3:58 PM Signed 3rd attempt. called patient to provide below results. No response. Left VM. Karen MEGHANA Knowles Allergies As of Date: 07/10/2024 Noted Allergy Reaction CODEINE 10/02/2003 2 - Rash PENICILLINS 10/02/2003 2 - Rash PIOGLITAZONE 07/03/2022 14 - Other: See Comments Comments: Increased leg edema and CHF symptoms PREDNISONE 10/02/2003 2 - Rash ACETAMINOPHEN 10/27/2021 14 - Other: See Comments CELEBREX (CELECOXIB) 11/26/2004 16 - Unknown NIACIN 10/02/2003 2 - Rash SULFA (SULFONAMIDE ANTIBIOTICS) 10/02/2003 2 - Rash Date Reviewed: 06/26/2024 Reviewed by: Xiao Thurman, RT(R) - Partially Assessed Reason for Visit: Results [95] Prescriptions as of 08/15/2024 - Blood-Glucose Meter DISPENSE ONE METER. Insulin use. E11.9 - blood sugar diagnostic (BLOOD GLUCOSE TEST) test strip CHECK BLOOD SUGAR THREE TIMES DAILY - Lancets CHECK BLOOD SUGAR THREE TIME DAILY PRE MEAL. - insulin glargine (LANTUS SOLOSTAR U-100 INSULIN) 100 unit/mL (3 mL) Inject 10 Units subcutaneously daily at bedtime. - alendronate (FOSAMAX) 70 mg tablet Take 1 tablet by mouth one time a week. In AM with cup of water on empty stomach. Nothing else by mouth and stay upright for 30 min. - carvedilol (COREG) 6.25 mg tablet Take 1 tablet by mouth two times a day with meals. - Insulin [place], Disposable, (PEN NEEDLE) 32 gauge x 5/32 Inject 1 Each subcutaneously every 24 hours. Give with each insulin administration. - SITagliptin phosphate (JANUVIA) 100 mg tablet Take 1 tablet by mouth once daily. - lisinopril (ZESTRIL) 40 mg tablet Take 1 tablet by mouth two times a day. - hydroCHLOROthiazide 25 mg tablet Take 1 tablet by mouth once daily. - furosemide (LASIX) 40 mg tablet Take 1 tablet by mouth as needed. - glimepiride (AMARYL) 2 mg tablet Take 1 tablet by mouth daily with dinner. - amLODIPine (NORVASC) 5 mg tablet Take 1 tablet by mouth once daily. - metFORMIN (GLUCOPHAGE) 500 mg tablet Take by mouth. take 2 tabs w/breakfast;1 tab with lunch and TWO tabs w/ dinner - nitroglycerin sublingual (NITROQUICK) 0.4 mg SL tablet Dissolve 1 tablet under the tongue as needed. FOR CHEST PAIN. IF NO RELIEF CALL 911 - Blood-Glucose Meter,Continuous (FREESTYLE KIRK 3 READER) misc Check blood sugars 3-4 times a day Dx: E11.65 no insulin - Blood-Glucose Sensor (FREESTYLE KIRK 3 SENSOR) em Apply a new sensor once every 2 weeks. Check blood sugars 3-4 times a day Dx: E11.65 no insulin - Cholecalciferol, Vitamin D3, 2,000 unit cap Take 3 capsules by mouth once daily. Problem List As Of Date 07/10/2024 Noted Resolved Diaphragmatic hernia without mention of obstruc* Herpes zoster [B02.9] Stricture and Stenosis of Esophagus [K22.2] Mixed Hyperlipidemia [E78.2] 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*07/01/2007 Actinic Keratosis [L57.0] 02/26/2009 06/28/2009 Other Seborrheic Keratosis [L82.1] 02/26/2009 06/28/2009 Sun-Damaged Skin [L57.8] 02/26/2009 06/28/2009 Solar Lentigo [L81.4] 02/26/2009 06/28/2009 Scar Condition and Fibrosis of Skin [L90.5] 02/26/2009 06/28/2009 Personal history of other malignant neoplasm of*02/26/2009 Capillary Angioma [I78.1] 02/26/2009 06/28/2009 Xerosis Cutis [L85.3] 02/26/2009 06/28/2009 Venous Stasis [I87.8] 02/26/2009 06/28/2009 Age-related osteoporosis without current pathol*04/24/2011 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)*07/07/2013 Essential hypertension [I10] 07/13/2014 Routine gynecological examination [Z01.419] 07/21/2014 Gastroesophageal reflux disease with esophagiti*04/23/2015 Skin cancer, basal cell [C44.91] 04/23/2015 Bilateral leg edema [R60.0] 05/31/2015 Vitamin D deficiency [E55.9] 11/26/2015 Aortic stenosis, mild [I35.0] 12/02/2015 Venous (peripheral) insufficiency [I87.2] 12/21/2015 Morbid obesity with BMI of 40.0-44.9, adult (HC*06/19/2016 08/20/2023 Diabetic eye exam (HCC) [Z01.00, E11.9] (more content not included)... Normal [facility] PVR ANK PRESS CRISTI VAS LABon 07-09-2024 PVR ANK PRESS CRISTI VAS LAB Non-Invasive Vascular Laboratory [facility] Lower Extremity Arterial Physiology Study Bilateral/Complete Date of service/time: 07/09/2024 11:10:30 AM Name: MRS. MARCI MARIE Date of : 1940 Age: 84 years Gender: F Clinical Indication Abnormal pulses. TECHNIQUE -------- An arterial physiological examination was performed, including measurement of blood pressures using continuous wave Doppler and recording of plethysmographic with or without Doppler waveforms at the below-mentioned limb segments. FINDINGS -------- RIGHT SIDE AT REST Right Doppler Waveforms Dorsalis pedis: Multiphasic. Post tibial: Multiphasic. Right Pressures Brachial: 146 mmHg Ankle dorsalis pedis: 141 mmHg ANDRES: 0.97 Ankle posterior tibial: 156 mmHg ANDRES: 1.07 Digit: 105 mmHg Right PVR Waveforms Ankle: Mildly dampened. LEFT SIDE AT REST Left Doppler Waveforms Dorsalis pedis: Multiphasic. Post tibial: Multiphasic. Left Pressures Brachial: 140 mmHg Ankle dorsalis pedis: 138 mmHg ANDRES: 0.95 Ankle posterior tibial: 133 mmHg ANDRES: 0.91 Digit: 88 mmHg Left PVR Waveforms Ankle: Mildly dampened. IMPRESSION Irregular cardiac rhythm noted. RIGHT SIDE Resting right ankle brachial index: 1.07 Right toe brachial index: 0.72 Normal ankle brachial index at rest in the right leg. Normal toe brachial index at rest in the right leg. Right ankle: Normal at rest. LEFT SIDE Resting left ankle brachial index: 0.95 Left toe brachial index: 0.60 Abnormal toe brachial index at rest is evidence of peripheral artery disease. Borderline abnormal ankle brachial index at rest. Left ankle: Borderline abnormal at rest. Technologist: Ninoska Arriola RVT Ordering physician: MALIA SIMONS Interpreting physician: JUANA Guevara DO Final CC [employer] [facility] : [id number] See Link below for Image Normal [facility] MARCI MARIE ([id number]) 1940 F DEF Date Time Provider Department 07/02/24 SHARONA BETTENCOURT [facility] During your visit today, we recorded the following information about you: Jessika Ayers RN 07/02/2024 1:02 PM Signed Patient calls to request the results of her whole body bone scan. Patient aware we will call with provider response once reviewed. Patient requests call back at [phone]. Jessika Ayers RN Allergies As of Date: 07/02/2024 Noted Allergy Reaction CODEINE 10/02/2003 2 - Rash PENICILLINS 10/02/2003 2 - Rash PIOGLITAZONE 07/03/2022 14 - Other: See Comments Comments: Increased leg edema and CHF symptoms PREDNISONE 10/02/2003 2 - Rash ACETAMINOPHEN 10/27/2021 14 - Other: See Comments CELEBREX (CELECOXIB) 11/26/2004 16 - Unknown NIACIN 10/02/2003 2 - Rash SULFA (SULFONAMIDE ANTIBIOTICS) 10/02/2003 2 - Rash Date Reviewed: 06/26/2024 Reviewed by: Xiao Thurman, RT(R) - Partially Assessed Reason for Visit: Results [95] Prescriptions as of 07/15/2024 - Blood-Glucose Meter DISPENSE ONE METER. Insulin use. E11.9 - blood sugar diagnostic (BLOOD GLUCOSE TEST) test strip CHECK BLOOD SUGAR THREE TIMES DAILY - Lancets CHECK BLOOD SUGAR THREE TIME DAILY PRE MEAL. - insulin glargine (LANTUS SOLOSTAR U-100 INSULIN) 100 unit/mL (3 mL) Inject 10 Units subcutaneously daily at bedtime. - alendronate (FOSAMAX) 70 mg tablet Take 1 tablet by mouth one time a week. In AM with cup of water on empty stomach. Nothing else by mouth and stay upright for 30 min. - carvedilol (COREG) 6.25 mg tablet Take 1 tablet by mouth two times a day with meals. - Insulin [place], Disposable, (PEN NEEDLE) 32 gauge x 5/32 Inject 1 Each subcutaneously every 24 hours. Give with each insulin administration. - SITagliptin phosphate (JANUVIA) 100 mg tablet Take 1 tablet by mouth once daily. - lisinopril (ZESTRIL) 40 mg tablet Take 1 tablet by mouth two times a day. - hydroCHLOROthiazide 25 mg tablet Take 1 tablet by mouth once daily. - furosemide (LASIX) 40 mg tablet Take 1 tablet by mouth as needed. - glimepiride (AMARYL) 2 mg tablet Take 1 tablet by mouth daily with dinner. - amLODIPine (NORVASC) 5 mg tablet Take 1 tablet by mouth once daily. - metFORMIN (GLUCOPHAGE) 500 mg tablet Take by mouth. take 2 tabs w/breakfast;1 tab with lunch and TWO tabs w/ dinner - nitroglycerin sublingual (NITROQUICK) 0.4 mg SL tablet Dissolve 1 tablet under the tongue as needed. FOR CHEST PAIN. IF NO RELIEF CALL 911 - Blood-Glucose Meter,Continuous (FREESTYLE KIRK 3 READER) [facility] Check blood sugars 3-4 times a day Dx: E11.65 no insulin - Blood-Glucose Sensor (FREESTYLE KIRK 3 SENSOR) em Apply a new sensor once every 2 weeks. Check blood sugars 3-4 times a day Dx: E11.65 no insulin - Cholecalciferol, Vitamin D3, 2,000 unit cap Take 3 capsules by mouth once daily. Problem List As Of Date 07/02/2024 Noted Resolved Diaphragmatic hernia without mention of obstruc* Herpes zoster [B02.9] Stricture and Stenosis of Esophagus [K22.2] Mixed Hyperlipidemia [E78.2] 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*07/01/2007 Actinic Keratosis [L57.0] 02/26/2009 06/28/2009 Other Seborrheic Keratosis [L82.1] 02/26/2009 06/28/2009 Sun-Damaged Skin [L57.8] 02/26/2009 06/28/2009 Solar Lentigo [L81.4] 02/26/2009 06/28/2009 Scar Condition and Fibrosis of Skin [L90.5] 02/26/2009 06/28/2009 Personal history of other malignant neoplasm of*02/26/2009 Capillary Angioma [I78.1] 02/26/2009 06/28/2009 Xerosis Cutis [L85.3] 02/26/2009 06/28/2009 Venous Stasis [I87.8] 02/26/2009 06/28/2009 Age-related osteoporosis without current pathol*04/24/2011 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)*07/07/2013 Essential hypertension [I10] 07/13/2014 Routine gynecological examination [Z01.419] 07/21/2014 Gastroesophageal reflux disease with esophagiti*04/23/2015 Skin cancer, basal cell [C44.91] 04/23/2015 Bilateral leg edema [R60.0] 05/31/2015 Vitamin D deficiency [E55.9] 11/26/2015 Aortic stenosis, mild [I35.0] 12/02/2015 Venous (peripheral) insufficiency [I87.2] 12/21/2015 Morbid obesity with BMI of 40.0-44.9, adult (HC*06/19/2016 08/20/2023 Diabetic eye exam (HCC) [Z01.00, E11.9] 08/21/2016 Corns and callus [L84] 09/18/2016 Screening for colon cancer [Z12.11] 07/03/2017 Sebaceous cyst [L72.3] 07/03/2017 Elevated serum GGT level [R74.8] 07/03/2017 Microscopic hematuria [R31.29] 08/28/2018 Elevated alkaline phosphatase level [R74.8] 08/28/2018 Uncontrolled type 2 diabetes mellitus with hype*01/02/2020 Adjustment disorder with depressed mood [F43.21]01/19/2020 SAMEER (generalized anxiety disorder) [F41.1] 01/19/2020 Medicare annual wellness visit, subsequent [Z00*03/21/2021 Foot callus [L84] 03/21/2021 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 Normal [facility] BONE WHOLE BODYon 025 [place] BONE WHOLE BODY * * *Final Report* * * DATE OF EXAM: Jun 26 2024 12:17PM WON 0014 - [place] BONE WHOLE BODY / PROCEDURE REASON: Elevated alkaline phosphatase level * * * * Physician Interpretation * * * * EXAM: WHOLE BODY BONE SCAN HISTORY: Elevated alkaline phosphatase level TECHNIQUE: 22.2 millicuries of Tc-99m MDP administered IV. Whole body anterior and posterior planar images obtained 3-4 hours. Regional static planar images also obtained. COMPARISON: No prior bone scan available CORRELATION: None available RESULTS: Limitations: Bone scans are often not sensitive for lytic lesions. Aspects of the arms not in [id number] and cannot be assessed. Bones: * Focal uptake at the anterior left approximate fifth rib. Otherwise no abnormal foci of tracer uptake. * Joint centered, likely degenerative uptake is noted throughout the spine (most prominently involving the lumbar spine) as well as at the shoulders, wrists, hands, knees and feet. Kidneys/Bladder: Physiologic activity present. Other findings: None. IMPRESSION: * Focal uptake at the anterior left approximate fifth rib, likely representing a traumatic rib fracture given history of recent fall with left anterior chest pain. * Multifocal degenerative uptake. Charging Plug Placer: PSCB Transcribe Date/Time: Jun 26 2024 1:04P Dictated by : LIZ GAMING MD This examination was interpreted and the report reviewed and electronically signed by: LIZ GAMING MD on Jun 26 2024 1:10PM EST [id number] Normal [facility] Whole body Bone Viewson 0 3-27-2025 IMPRESSION: * Focal uptake at the anterior left approximate fifth rib, likely representing a traumatic rib fracture given history of recent fall with left anterior chest pain. * Multifocal degenerative uptake. Charging Plug Placer: PSCB Transcribe Date/Time: Jun 26 2024 1:04P Dictated by : LIZ GAMING MD This examination was interpreted and the report reviewed and electronically signed by: LIZ GAMING MD on Jun 26 2024 1:10PM [facility] DIVISION OF RADIOLOGY * * *Final Report* * * DATE OF EXAM: Jun 26 2024 12:17PM [facility] 0014 - [place] BONE WHOLE BODY / PROCEDURE REASON: Elevated alkaline phosphatase level * * * * Physician Interpretation * * * * EXAM: WHOLE BODY BONE SCAN HISTORY: Elevated alkaline phosphatase level TECHNIQUE: 22.2 millicuries of Tc-99m MDP administered IV. Whole body anterior and posterior planar images obtained 3-4 hours. Regional static planar images also obtained. COMPARISON: No prior bone scan available CORRELATION: None available RESULTS: Limitations: Bone scans are often not sensitive for lytic lesions. Aspects of the arms not in [id number] and cannot be assessed. Bones: * Focal uptake at the anterior left approximate fifth rib. Otherwise no abnormal foci of tracer uptake. * Joint centered, likely degenerative uptake is noted throughout the spine (most prominently involving the lumbar spine) as well as at the shoulders, wrists, hands, knees and feet. Kidneys/Bladder: Physiologic activity present. Other findings: None. DIVISION OF RADIOLOGY Provider, [facility] - 06/26/2024 * * *Final Report* * * DATE OF EXAM: Jun 26 2024 12:17PM [facility] 0014 - [place] BONE WHOLE BODY / PROCEDURE REASON: Elevated alkaline phosphatase level * * * * Physician Interpretation * * * * EXAM: WHOLE BODY BONE SCAN HISTORY: Elevated alkaline phosphatase level TECHNIQUE: 22.2 millicuries of Tc-99m MDP administered IV. Whole body anterior and posterior planar images obtained 3-4 hours. Regional static planar images also obtained. COMPARISON: No prior bone scan available CORRELATION: None available RESULTS: Limitations: Bone scans are often not sensitive for lytic lesions. Aspects of the arms not in [id number]-[id number] and cannot be assessed. Bones: * Focal uptake at the anterior left approximate fifth rib. Otherwise no abnormal foci of tracer uptake. * Joint centered, likely degenerative uptake is noted throughout the spine (most prominently involving the lumbar spine) as well as at the shoulders, wrists, hands, knees and feet. Kidneys/Bladder: Physiologic activity present. Other findings: None. IMPRESSION IMPRESSION: * Focal uptake at the anterior left approximate fifth rib, likely representing a traumatic rib fracture given history of recent fall with left anterior chest pain. * Multifocal degenerative uptake. Charging Plug Placer: RODOLFO Transcribe Date/Time: Jun 26 2024 1:04P Dictated by : LIZ GAMING MD This examination was interpreted and the report reviewed and electronically signed by: LIZ GAMING MD on Jun 26 2024 1:10PM EST [facility] Radiology Study observation (narrative) [facility] Whole body Bone ViewsOrde red By: [facility] Provider on 06-26-2024 [facility] Brain/Head without Contrasto n 06-16-2024 Brain/Head without Contrast [facility] Imaging Services [address] [place] [address] [id number] Brain/Head without Contrast MR#: [id number] Acct: [id number] Name: MARCI MARIE Rep #: [id number] : 1940 F 84 From: Manuel Mai PCP: Dr. Arturo Amaya MD Status: REG ER Study: Brain/Head without Contrast Date of Exam: 05/31 10/24 Exam# [id number] Ordering Dr: Richard Loo DO EXAM: BRAIN/HEAD WITHOUT CONTRAST CLINICAL HISTORY: TRAUMA HEADACHE COMPARISON: April 2024 TECHNIQUE: Noncontrast head CT performed using standard technique. Sagittal and coronal reconstructions added. FINDINGS: Global volume loss and moderate chronic small-vessel ischemic change. No mass effect. No midline shift. No acute hemorrhage. No acute skull fracture. Mastoid air cells and paranasal sinuses are clear. CT/Brain/Head without Contrast IMPRESSION: Senescent changes. No evidence of acute intracranial abnormality. Reading Location: [facility] CC: Dr. Richard Loo DO; Dr. Arturo Amaya MD Charging Plug Placer: Signed [facility] Telephone (FAMPWS) FRANKMARCI MOSHER ([id number]) 1940 F DEF Date Time Provider Department 06/16/24 [facility] During your visit today, we recorded the following information about you: Suzanna Pimentel, ARON 06/16/2024 1:46 PM Signed Bettye Liao Visiting WASTE RECLAIMER with Pts insurance went to Pts house and the Pt told her she fell night at 1230 am in the bathroom. She said the Pt was complaining of occipital headache now and sharp pain in her L rib. She reports Pt did not lose conscious, her VS are stable, denies blurred or double vision. She states she didn't see any bumps or bruising on the Pt. She reports Pt said she would go to [facility]. I told her [facility] would probably send her to R so she could get stat scans I also asked her if someone was going to be driving the Pt, and she said she thought so. Called and left a voicemail for the Patient to call back and ask for a triage nurse so we could triage fall. Suzanna Pimentel, RN Madelyn Caba RN 06/16/2024 2:16 PM Signed Called and spoke with pt who states she is in [facility] ER at this time. Allergies As of Date: 06/16/2024 Noted Allergy Reaction CODEINE 10/02/2003 2 - Rash PENICILLINS 10/02/2003 2 - Rash PIOGLITAZONE 07/03/2022 14 - Other: See Comments Comments: Increased leg edema and CHF symptoms PREDNISONE 10/02/2003 2 - Rash ACETAMINOPHEN 10/27/2021 14 - Other: See Comments CELEBREX (CELECOXIB) 11/26/2004 16 - Unknown NIACIN 10/02/2003 2 - Rash SULFA (SULFONAMIDE ANTIBIOTICS) 10/02/2003 2 - Rash Date Reviewed: 06/11/2024 Reviewed by: Bettye Pelayo MA - Fully Assessed Reason for Visit: Patient Update [1234] Prescriptions as of 06/16/2024 - Blood-Glucose Meter DISPENSE ONE METER. Insulin use. E11.9 - blood sugar diagnostic (BLOOD GLUCOSE TEST) test strip CHECK BLOOD SUGAR THREE TIMES DAILY - Lancets CHECK BLOOD SUGAR THREE TIME DAILY PRE MEAL. - insulin glargine (LANTUS SOLOSTAR U-100 INSULIN) 100 unit/mL (3 mL) Inject 10 Units subcutaneously daily at bedtime. - alendronate (FOSAMAX) 70 mg tablet Take 1 tablet by mouth one time a week. In AM with cup of water on empty stomach. Nothing else by mouth and stay upright for 30 min. - carvedilol (COREG) 6.25 mg tablet Take 1 tablet by mouth two times a day with meals. - Insulin [place], Disposable, (PEN NEEDLE) 32 gauge x 5/32 Inject 1 Each subcutaneously every 24 hours. Give with each insulin administration. - SITagliptin phosphate (JANUVIA) 100 mg tablet Take 1 tablet by mouth once daily. - lisinopril (ZESTRIL) 40 mg tablet Take 1 tablet by mouth two times a day. - hydroCHLOROthiazide 25 mg tablet Take 1 tablet by mouth once daily. - furosemide (LASIX) 40 mg tablet Take 1 tablet by mouth as needed. - glimepiride (AMARYL) 2 mg tablet Take 1 tablet by mouth daily with dinner. - amLODIPine (NORVASC) 5 mg tablet Take 1 tablet by mouth once daily. - metFORMIN (GLUCOPHAGE) 500 mg tablet Take by mouth. take 2 tabs w/breakfast;1 tab with lunch and TWO tabs w/ dinner - nitroglycerin sublingual (NITROQUICK) 0.4 mg SL tablet Dissolve 1 tablet under the tongue as needed. FOR CHEST PAIN. IF NO RELIEF CALL 911 - Blood-Glucose Meter,Continuous (FREESTYLE KIRK 3 READER) misc Check blood sugars 3-4 times a day Dx: E11.65 no insulin - Blood-Glucose Sensor (FREESTYLE KIRK 3 SENSOR) em Apply a new sensor once every 2 weeks. Check blood sugars 3-4 times a day Dx: E11.65 no insulin - Cholecalciferol, Vitamin D3, 2,000 unit cap Take 3 capsules by mouth once daily. Problem List As Of Date 06/16/2024 Noted Resolved Diaphragmatic hernia without mention of obstruc* Herpes zoster [B02.9] Stricture and Stenosis of Esophagus [K22.2] Mixed Hyperlipidemia [E78.2] 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*07/01/2007 Actinic Keratosis [L57.0] 02/26/2009 06/28/2009 Other Seborrheic Keratosis [L82.1] 02/26/2009 06/28/2009 Sun-Damaged Skin [L57.8] 02/26/2009 06/28/2009 Solar Lentigo [L81.4] 02/26/2009 06/28/2009 Scar Condition and Fibrosis of Skin [L90.5] 02/26/2009 06/28/2009 Personal history of other malignant neoplasm of*02/26/2009 Capillary Angioma [I78.1] 02/26/2009 06/28/2009 Xerosis Cutis [L85.3] 02/26/2009 06/28/2009 Venous Stasis [I87.8] 02/26/2009 06/28/2009 Age-related osteoporosis without current pathol*04/24/2011 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)*07/07/2013 Essential hypertension [I10] 07/13/2014 Routine gynecological examination [Z01.419] 07/21/2014 Gastroesophageal reflux disease with esophagiti*04/23/2015 Skin cancer, basal cell [C44.91] 04/23/2015 Bilateral leg edema [R60.0] 05/31/2015 Vitamin D deficiency [E55.9] 11/26/2015 Aortic stenosis, mild [I35.0] 12/02/2015 Venous (peripheral) insufficiency [I87.2] 12/21/2015 Morbid obesity with BMI of 40.0-44.9, adult (HC*06/19/2016 08/20/2023 Diabetic eye exam (HCC) [Z01.0 (more content not included)... Normal [facility] Chest without Contraston Chest without Contrast [facility] Imaging Services [address] [place], [place] [id number] Chest without Contrast MR#: [id number] Acct: [id number] Name: MARCI MARIE Rep #: [id number] : 1940 F 84 From: Manuel Mai PCP: Dr. Arturo Amaya MD Status: [facility] ER Study: Chest without Contrast Date of Exam: 06/16/24 Exam# [id number] Ordering Dr: Richard Loo DO PROCEDURE: CHEST WITHOUT CONTRAST 06/16/2024 REASON FOR EXAM: RIB INJURY TECHNIQUE: Axial chest CT without contrast. Axial and sagittal reconstructions performed. COMPARISON: None. FINDINGS: Mild motion degraded examination Demineralization does limit sensitivity. Scattered multilevel degenerative disc disease in the thoracic spine The heart size is enlarged. There are aortic valve calcification. Small sliding hiatal hernia. Mild motion degraded examination. No pneumothorax or pleural effusion. Bibasilar atelectasis. Ascending aorta measures 3.5 cm Hepatic steatosis. Cholecystectomy changes. Robust upper abdominal vascular calcification. 5 mm left midpole stone. Parapelvic cysts seen in both kidneys. CT/Chest without Contrast IMPRESSION: No definite rib fracture is seen. Please note demineralization does limit sensitivity. Robust vascular calcification. Small sliding hiatal hernia. Patchy bibasilar atelectasis. Cardiac enlargement Reading Location: [facility] CC: Dr. Richard Loo DO; Dr. Arturo Amaya MD Charging Plug Placer: Signed Normal [facility] Emergency Department Summary on 06-16-2024 Emergency Department Summary [facility] Medical Records Department [address] [place] [id number] Emergency Department Summary 06/16/24 MR#: [id number] Acct: [id number] Name: MARCI MARIE Rep #: [id number] : 1940 84 From: Richard Loo DO PCP: Dr. Arturo Amaya MD Status:[facility] ER Location: ED HPI History of Present Illness Chief Complaint: Fall Informant: patient Narrative Narrative: 84-year-old female presenting to the emergency room with headache and rib pain. Patient states that last around 12:30 at night she was cleaning her toilet when she lost her balance and fell backwards into the drywall. She states that since that time she has had pain left lateral ribs right scapular region and a headache. She states her headache got worse on Sunday. Today she was sitting in her chair and went to reach for something and the pain in the left lateral ribs got worse. She had a home nurse come for a visit to inquired about recent falls. She mentioned her symptoms and the nurse called the patient's doctor who recommended she come to emergency. She denies any hemoptysis or neurologic deficits. She denies any bruising. No dyspnea or significant cough. She states that she is not on a blood thinner. [facility] Medical History History of esophageal dilatation Obesity (BMI 35.0-39.9 without comorbidity) Edema of right lower extremity due to peripheral venous insufficiency Edema of left lower extremity due to peripheral venous insufficiency Edema of right lower extremity Edema of left lower extremity Swelling of right lower extremity Swelling of left lower extremity Venous stasis dermatitis Atrial fibrillation Overactive bladder Esophageal stricture Hearing deficit Tinnitus History of basal cell cancer Diaphragmatic hernia Diabetic neuropathy Aortic stenosis Hyperlipidemia Chronic venous insufficiency Osteoporosis Thrombocytopenia Metabolic acidosis Hypokalemia Gastroenteritis Acute kidney injury Hiatal hernia Dyslipidemia HTN (hypertension) GERD (gastroesophageal reflux disease) Esophageal spasm Diabetes mellitus Home Medications ???Medication ???Instructions ???Recorded ???Last Taken ???Type metformin 500 mg tablet 500 mg PO UD diabetes 07/05/17 History hydrochlorothiazide 25 mg tablet 25 mg PO DAILY diuretic 04/01/18 0 07/29/23 05:00 History carvedilol 3.125 mg tablet (Coreg) 3.125 mg PO BID BP 10/10/2207/31 10:00 History 3.125 mg nitroglycerin 0.4 mg sublingual 0.4 mg sublingual Q5M 10/10/22 Unk nown History tablet (Nitrostat) sitagliptin phosphate 100 mg 100 mg PO DAILY blood sugar 07/29/23 History tablet (Januvia) furosemide 80 mg tablet 40 mg (1/2 x 80 mg) PO DAILY PRN 0 08/14/23 Unknown Rx edema 30 days #0 tabs amlodipine 5 mg tablet 5 mg PO DAILY 04/22/24 Unknown His tory cefadroxil 500 mg capsule 500 mg PO BID 04/22/24 Unknown His tory clonidine HCl 0.1 mg tablet 0.1 mg PO BID PRN SBP > 170 #10 Unknown Rx tabs glimepiride 2 mg tablet 2 mg PO QPM 04/22/24 Unknown Histo ry lisinopril 40 mg tablet 40 mg PO BID 04/22/24 Unknown Hist ory pantoprazole 40 mg tablet,delayed 40 mg PO QDAY #90 tabs 04/30/24 U nknown Rx release Allergy/AdvReac Type Severity Reaction Status Date / Time acetaminophen (From Vicodin) Allergy Other Verified 06/16/24 14:13 celecoxib (From Celebrex) Allergy Unknown Verified 06/16/24 14:13 codeine Allergy Unknown Verified 06/16/24 14:13 hydrocodone (From Vicodin) Allergy Other Verified 06/16/24 14:13 morphine Allergy Other Verified 06/16/24 14:13 niacin Allergy Unknown Verified 06/16/24 14:13 Penicillins Allergy Unknown Verified 06/16/24 14:13 prednisone Allergy Unknown Verified 06/16/24 14:13 Sulfa (Sulfonamide Allergy Unknown Verified 06/16/24 14:13 Antibiotics) Family History Mother Asthma Father Heart disease Hypertension Arthritis Surgical History History of tonsillectomy History of nasal surgery History of surgery on left wrist History of cholecystectomy History repair broken nose history ORIF left wrist History of laparoscopic cholecystectomy Social History Smoking Status: Never smoker alcohol intake: never substance use type: does not use ROS ROS ED Constitutional Constitutional ED: Denies chills, fever(s) or weight loss Eyes Eyes: Denies change in vision or diplopia ENT ENT ED: Denies ear pain, rhinorrhea or sore throat Cardiovascular Cardiovascular: Reports chest pain and other Details: See history of present illness ; Denies orthopnea, palpitations or r (more content not included)... Normal [facility] Spine Cervical without Contr ason 06-16-2024 Spine [address]erv[address] without Contras [facility] Imaging Services [address] [place] [address] Spine Cervical without Contras MR#: [id number] Acct: [id number] Name: KADE MARIESETH Mao Rep #: [id number] : 1940 F 84 From: Manuel Mai PCP: Dr. Arturo Amaya MD Status: REG ER Study: Spine Cervical without Contras Date of Exam: 0 06/16/24 Exam# [id number] Ordering Dr: Richard Loo DO PROCEDURE: SPINE CERVICAL WITHOUT CONTRAS 06/16/2024 REASON FOR EXAM: TRAUMA TECHNIQUE: Cervical spine CT without contrast. Coronal and Sagittal reconstruction series were provided. One or more dose reduction techniques were used (e.g., Automated exposure control, adjustment of the mA and/or kV according to patient size, use of iterative reconstruction technique COMPARISON: None. FINDINGS: Demineralization of the bones. This limits sensitivity. No evidence of acute fracture or malalignment. Tortuous vascularity. Scattered mild degenerative changes. Prevertebral soft tissues within normal limits. CT/Spine Cervical without Contras IMPRESSION: Senescent changes. No evidence of acute cervical spine fracture. Reading Location: [id number] CC: Dr. Richard Loo DO; Dr. Arturo Amaya MD Charging Plug Placer: Signed [facility] CNN[facility] Nurse Visit (ENDIMT) MARCI MARIE ([id number]) 1940 F DEF Date Time Provider Department 06/11/24 1:00 PM ALEXANDRE KHAN During your visit today, we recorded the following information about you: Alexandre Khan, RN 06/11/2024 1:23 PM Signed DIABETES CARE AND EDUCATION VISIT Location: [place] Type of visit: In person individual PATIENT'S MAIN CONCERN TODAY: Learn about Freestyle Libre3 Support person present for education today: none Cognitive ability: Alert and oriented Motivation to learn: Interested Learning barriers identified by educator: none Method of instruction: written, verbal, and demonstration DIABETES FINDINGS: Monitoring: Libre3 reviewed and assisted patient with starting sensor Medications: reviewed use of the Lantus insulin pen, pt has sibling who uses pens and feels comfortable after reviewing operation HANDOUTS: Healthy You: Survival Skills and Healthy You: Planning Healthy Meals LEARNING RESPONSE: Monitoring glucose: Demonstrated understanding/competency today or at previous visit POSSIBLE FUTURE TOPICS: 1. DIABETES CARE AND EDUCATION PLAN: Education completed and annual diabetes education follow-up visit recommended Time Spent (Minutes): 30 This visit note will be communicated to the healthcare provider via access to shared medical record. SIGNATURE: Alexandre Khan RN PATIENT NAME: Marci Marie DATE: June 11, 2024 TIME: 12:56 PM Referring Provider: SHARONA BETTENCOURT [[id number]] Allergies As of Date: 06/11/2024 Noted Allergy Reaction CODEINE 10/02/2003 2 - Rash PENICILLINS 10/02/2003 2 - Rash PIOGLITAZONE 07/03/2022 14 - Other: See Comments Comments: Increased leg edema and CHF symptoms PREDNISONE 10/02/2003 2 - Rash ACETAMINOPHEN 10/27/2021 14 - Other: See Comments CELEBREX (CELECOXIB) 11/26/2004 16 - Unknown NIACIN 10/02/2003 2 - Rash SULFA (SULFONAMIDE ANTIBIOTICS) 10/02/2003 2 - Rash Date Reviewed: 06/11/2024 Reviewed by: Bettye Pelayo MA - Fully Assessed Primary Visit Diagnosis: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 Insulin use. E11.9 - blood sugar diagnostic (BLOOD GLUCOSE TEST) test strip CHECK BLOOD SUGAR THREE TIMES DAILY - Lancets CHECK BLOOD SUGAR THREE TIME DAILY PRE MEAL. - insulin glargine (LANTUS SOLOSTAR U-100 INSULIN) 100 unit/mL (3 mL) Inject 10 Units subcutaneously daily at bedtime. - alendronate (FOSAMAX) 70 mg tablet Take 1 tablet by mouth one time a week. In AM with cup of water on empty stomach. Nothing else by mouth and stay upright for 30 min. - carvedilol (COREG) 6.25 mg tablet Take 1 tablet by mouth two times a day with meals. - Insulin [place], Disposable, (PEN NEEDLE) 32 gauge x 5/32 Inject 1 Each subcutaneously every 24 hours. Give with each insulin administration. - SITagliptin phosphate (JANUVIA) 100 mg tablet Take 1 tablet by mouth once daily. - lisinopril (ZESTRIL) 40 mg tablet Take 1 tablet by mouth two times a day. - hydroCHLOROthiazide 25 mg tablet Take 1 tablet by mouth once daily. - furosemide (LASIX) 40 mg tablet Take 1 tablet by mouth as needed. - glimepiride (AMARYL) 2 mg tablet Take 1 tablet by mouth daily with dinner. - amLODIPine (NORVASC) 5 mg tablet Take 1 tablet by mouth once daily. - metFORMIN (GLUCOPHAGE) 500 mg tablet Take by mouth. take 2 tabs w/breakfast;1 tab with lunch and TWO tabs w/ dinner - nitroglycerin sublingual (NITROQUICK) 0.4 mg SL tablet Dissolve 1 tablet under the tongue as needed. FOR CHEST PAIN. IF NO RELIEF CALL 911 - Blood-Glucose Meter,Continuous (FREESTYLE KIRK 3 READER) [facility] [place] Check blood sugars 3-4 times a day Dx: E11.65 no insulin - Blood-Glucose Sensor (FREESTYLE KIRK 3 SENSOR) em Apply a new sensor once every 2 weeks. Check blood sugars 3-4 times a day Dx: E11.65 no insulin - Cholecalciferol, Vitamin D3, 2,000 unit cap Take 3 capsules by mouth once daily. Problem List As Of Date 06/11/2024 Noted Resolved Diaphragmatic hernia without mention of obstruc* Herpes zoster [B02.9] Stricture and Stenosis of Esophagus [K22.2] Mixed Hyperlipidemia [E78.2] 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*07/01/2007 Actinic Keratosis [L57.0] 02/26/2009 06/28/2009 Other Seborrheic Keratosis [L82.1] 02/26/2009 06/28/2009 Sun-Damaged Skin [L57.8] 02/26/2009 06/28/2009 Solar Lentigo [L81.4] 02/26/2009 06/28/2009 Scar Condition and Fibrosis of Skin [L90.5] 02/26/2009 06/28/2009 Personal history of other malignant neoplasm of*02/26/2009 Capillary Angioma [I78.1] 02/26/2009 06/28/2009 Xerosis Cutis [L85.3] 02/26/2009 06/28/2009 Venous Stasis [I87.8] 02/26/2009 06/28/2009 Age-related osteoporosis without current pathol*04/24/2011 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)*07/07/2013 Essential hypertensi (more content not included)... Normal [facility] CNOVon 06-11-2024 CNOV Office Visit (ENWSTR ) MARCI MARIE ([id number]) 1940 F DEF Date Time Provider Department 06/11/24 11:00 AM CHRISTA SHERIDAN ENWSTR During your visit today, we recorded the following information about you: Temperature Pulse Blood pressure Weight 97.6 degrees 81/minute 140/84 103.1 kg Christa Sheridan, DIRECTOR VIDEO.DIESEL MAINTENANCE TECHNICIAN 06/11/2024 11:25 AM Signed NEW CONSULT OFFICE PROGRESS NOTE Reason for Consultation: DM Type 2 Referring Physician: SELF My final recommendations will be communicated back to the requesting physician by way of shared Medical record or letter via US mail. HISTORY OF PRESENT ILLNESS; Marci Pinaz is a 84 year old FEMALE is presenting as a new patient to me regarding DM Type 2. She was initially diagnosed with diabetes in 1999 Patient extremely hard of hearing Is not checking her blood sugar Pt had sensors for almost one year and was not instructed by prescriber office Pt kelvin noone taught her to use CGM - when she asked PCP office, kelvin was told by PCP office - 'you go see ENDO they will set you up' Has not seen DM ed Sts is taking her oral meds but is NOT using her insulin They never gave me insulin DM Education No Knows how to carb count No DIETARY HISTORY: Breakfast: cereal and banana w ham and egg Lunch salad with turkey and lite [place] dressing Dinner soup OR sandwich OR salad Snacks grapes OR pretzels OR chips (I'm a chip aholic) Drinks water and sugar free drinks - no longer drinking pop Exercise: walks CURRENT DM MEDS AMARYL 2 mg 1 tab daily JANUVIA 100 mg 1 tab daily LANTUS 10 units METFORMIN 500 mg 2 BG, 1 lunch 2 dinner SMBG Type of Monitor: Other Frequency of Monitoring: HAS NOT BEEN CHECKING times a day BG Values: Breakfast: Lunch: Dinner: Bed-time: Values over past week: Highest ; Lowest Hypoglycemia: no Diet: as per above Exercise: as per above DM REVIEW OF SYSTEMS Last Eye Exam : 03/2024 Last Podiatry Exam: 04/2024 Cardiorespiratory: negative, denies chest pain, pressure Claudication: no Dyslipidemia: Yes, controlled on medication High Blood Pressure: Yes, controlled on medication CURRENT LABS Latest Ref Rng 04/15/2024 Hemoglobin A1C 4.3 - 5.6 % 13.7 (H) Estimated Average Glucose mg/dL 346 Legend: (H) High Recent Labs 01/08/20 0917 04/13/20 1136 03/21/21 0942 09/07/21 0959 09/07/21 1005 10/27/21 1023 11/22/21 1048 12/26/21 1358 04/11/22 1014 09/26/22 1313 10/10/22 1002 08/11/23 1028 04/15/24 1310 05/14/24 1314 ALT -- < > -- < > -- -- 23 -- 24 19 -- 24 59* 18 AST -- < > -- < > -- -- -- 22 -- 49* 16 UCRR 74.8 -- 14.2* -- 75.5 -- -- -- 31.2 -- -- -- -- -- UALBR 18.6 -- 20.0 -- <12.0 -- -- -- <12.0 -- -- -- -- -- UALBCR 25 -- 141* -- <16 -- -- -- -- -- -- -- -- -- TSH -- -- -- -- -- -- 2.570 -- 2.150 -- -- -- 1.740 -- TPROT -- < > -- < > -- -- 7.0 -- 6.9 6.8 -- 6.7 7.2 7.0 ALB -- < > -- < > -- -- 4.6 -- 4.4 4.3 -- 4.1 4.3 4.2 CA -- < > -- < > -- < > 10.6* < > 10.2 10.1 -- 10.0 10.6* 10.1 TBILI -- < > -- < > -- -- 0.4 -- 0.4 0.6 -- 0.6 0.7 0.5 ALKPHOS -- < > -- < > -- -- 135* -- 151* 113 -- 308* 309* 193* 193* GLUC -- < > -- < > -- < > 118* -- 171* 153* -- 541* 492* -- BUN -- < > -- < > -- < > 25* -- 23* 19 -- 19 26* -- CREAT -- < > -- < > -- < > 0.99* -- 0.76 0.81 -- 0.61 0.65 -- NA -- < > -- < > -- < > 137 -- 138 138 -- 136 133* -- K -- < > -- < > -- < > 4.4 -- 4.4 4.2 -- 4.6 4.4 -- CHLOR -- < > -- < > -- < > 100 -- 103 101 -- 97 96* -- CO2 -- < > -- < > -- < > 27 -- 27 25 -- 25 23 -- ANION -- < > -- < > -- < > 10 -- 8* 12 -- 14 14 -- EGFROTH -- < > -- < > -- < > 58* -- 79 73 -- 90 88 -- HBA1C -- < > -- < > -- -- -- -- 6.9* -- 8.8* 12.9* 13.7* -- B12 -- -- -- -- -- -- 536 -- -- -- -- -- -- -- < > = values in this interval not displayed. Recent Labs 07/18/14 0735 05/17/15 0850 07/18/16 0947 08/27/18 1613 09/07/21 0959 11/22/21 1048 04/11/22 1014 10/10/22 1002 08/11/23 1028 04/15/24 1310 TG 91 112 133 < > 147 -- 74 -- -- 117 CHOL 180 182 183 < > 184 -- 186 -- -- 220* HDL 59 65 58 < > 64 -- 79 -- -- 91 VLDL 18 22 27 < > 29 -- 15 -- -- 23 LDL 103 95 98 < > 91 -- 92 -- -- 106* FASTTIME FASTING 12 12 -- -- -- -- -- -- -- TCHDL 3.05 2.80 3.16 < > 2.88 -- 2.35 -- -- 2.42 LDLHDL 1.75 1.46 1.69 < > 1.42 -- 1.16 -- -- 1.16 NONHDL 121 117 125 < > 120 -- 107 -- -- 129 HBA1C 7.8* 6.6* 7.0* < > 7.8* -- 6.9* 8.8* 12.9* 13.7* HBA0 177 143 154 < > 177 -- 151 -- 324 346 B12 -- -- -- -- -- 536 -- -- -- -- < > = values in this interval not displayed. PAST MEDICAL HISTORY Diagnosis Date Acquired deformity of left toe 03/21/2021 second and third digits Adjustment disorder with depressed mood 01/19/2020 Aortic stenosis, mild 12/02/[address] Tesfaye: Echo 12/02/2015: Also showed mild TR and MR Bilateral leg edema 05/31/2015 Carpal tunnel syndrome, (more content not included)... Normal [facility] CNOVon 06-02-2024 CNOV Office Visit (PODIWS ) FRANKMARCI ([id number]) 1940 F DEF Date Time Provider Department 06/02/24 11:00 AM MALIA SIMONS During your visit today, we recorded the following information about you: Suzanna Babcock, RN 06/03/2024 5:54 AM Signed Patient presents with: Left Foot - New, Diabetic Foot Care Right Foot - New, Diabetic Foot Care, Ingrown Toenail Patient presents for diabetic foot/nail care. States that she had an infected ingrown back in April and was placed on antibiotics. 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 Has history of intermittent neuropathy pain. Toenails are thick and long. Possible wart vs callus to bottom of left foot. ZEUS 02/01/2017 Malia Simons 06/03/2024 5:54 AM Signed Consultation requested by Dr. Bettencourt for an opinion regarding ingrowing toenail. My final recommendations will be communicated back to the requesting physician by way of shared Medical record or letter to requesting physician via US mail. Initial Office Visit Subjective: This 84 year old female presents to clinic for diabetic foot check. Patient has the following complaints: ingrowing toenail of b/l feet. Patient presents to clinic for evaluation of b/l feet. Complains of ingrowing toenail of b/l hallux. This causes pain and even led to an infection back in April. Was placed on antibiotic and the infection resolved but she still has pain. She has neglected her toes so her nails are very thick, incurvated and painful. Patient admits to being diabetic. Patient -B/T/N in feet at this time. Patient -pain in legs when walking. No other pedal complaints at this time. No change in medications or medical history since last visit. PAIN EVALUATION No data found in the last 1 encounters. Hemoglobin A1C (%) Date Value 04/15/2024 13.7 08/11/2023 12.9 04/11/2022 6.9 09/07/2021 7.8 03/21/2021 7.8 08/23/2020 6.8 04/13/2020 5.7 01/08/2020 16.3 08/27/2018 13.7 Hemoglobin A1C (POCT) (%) Date Value 10/10/2022 8.8 PCP: Arturo Amaya MD PAST MEDICAL HISTORY Diagnosis Date Acquired deformity of left toe 03/21/2021 second and third digits Adjustment disorder with depressed mood 01/19/2020 Aortic stenosis, mild 12/02/[address] 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 prior episode ([facility]) 01/19/2020 Diabetic eye exam ([facility]) 08/21/2016 Last Done: 08/09/2017 No Retinopathy Diaphragmatic hernia without mention of obstruction or gangrene Diastolic congestive heart failure ([facility]) 07/03/2022 Elevated alkaline phosphatase level 08/28/2018 Elevated serum GGT level 07/03/2017 Essential hypertension 07/13/2014 Foot callus 03/21/2021 SAMEER (generalized anxiety disorder) 09/05/2018 Gastroesophageal reflux disease with esophagitis 04/23/2015 Herpes zoster mild occasional neuralgia in left cervical area. Hiatal hernia History of colon polyps Mixed hyperlipidemia Morbid obesity with BMI of 40.0-44.9, adult ([facility]) 06/19/2016 Multiple thyroid nodules 03/24/2021 US 03/2021: Needs yearly f/u for 5 yrs OAB (overactive bladder) 10/10/2022 Osteopenia 04/24/2011; Start vitamin d 1,000/day and RE-CHECK 2013 Personal history of other malignant neoplasm of skin 02/26/2009 Schatzki's ring Sebaceous cyst 07/03/2017 lower anterior neck Skin cancer, basal cell 04/23/2015 nose Stricture and stenosis of esophagus egd/dilatation by Dr. Hollins; Tinnitus of both ears 12/26/2021 Due to hearing loss. 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) 07/07/2013 Uncontrolled type 2 diabetes mellitus with hyperglycemia ([facility]) 01/02/2020 Venous (peripheral) insufficiency 12/21/2015 Vitamin D deficiency 11/26/2015 Current Outpatient Medications Medication Sig alendronate (FOSAMAX) 70 mg tablet Take 1 tablet by mouth one time a week. In AM with cup of water on empty stomach. Nothing else by mouth and stay upright for 30 min. carvedilol (COREG) 6.25 mg tablet Take 1 tablet by mouth two times a day with meals. insulin glargine (LANTUS SOLOSTAR U-100 INSULIN) 100 unit/mL (3 mL) Inject 10 Units subcutaneously daily at bedtime. Insulin [place], Disposable, (PEN NEEDLE) 32 gauge x 5/32 Inject 1 Each subcutaneously every 24 hours. Give with each insulin administration. SITagliptin phosphate (JANUVIA) 100 mg tablet Take 1 tablet by mouth once daily. lisinopril (ZESTRIL) 40 mg tablet Take 1 tablet by mouth two times a day. hydroCHLOROthiazide 25 mg tablet Take 1 tablet by mouth once daily. furosemide (LASIX) 40 mg tablet Take 1 tablet by mouth as (more content not included)... Normal [facility] CNCOon 05-30-2024 CNCO Letter Text Normal [facility] BD DXA - AXIAL SKELETONon BD DXA - AXIAL SKELETON * * *Final Report* * * DATE OF EXAM: May 23 2024 10:42AM [facility] 0804 - DXA - AXIAL SKELETON / PROCEDURE REASON: Asymptomatic postmenopausal status * * * * Physician Interpretation * * * * EXAMINATION: DXA BONE DENSITOMETRY BD DXA - AXIAL SKELETON PATIENT DEMOGRAPHICS: Age: 84 years, Gender: Female SCANNER INFORMATION: DXA Model: [facility] - [employer] C [address]70 Date Scanned: 05/23/2024 10:42 AM CLINICAL HISTORY: DIAGNOSTIC Asymptomatic postmenopausal status . RISK FACTORS FOR OSTEOPOROSIS AND ASSOCIATED FRACTURES REPORTED BY THIS PATIENT: Please refer to Bone Health Questionnaire in the EMR CURRENT THERAPY: Please refer to Bone Health Questionnaire in the EMR TECHNICAL LIMITATIONS: None RESULTS: Lumbar spine (L1, L2, L3, L4): 1.283 g/cm2, T-score 2.1, Z-score 4.9 Lumbar spine: 2018: 1.156 g/cm2 Statistically significant increase Right Femoral Neck: 0.537 g/cm2, T-score -2.8, Z-score -0.4 Right Femoral Neck: 2018: 0.684 g/cm2 Statistically significant decrease Right Total Hip: 0.805 g/cm2, T-score -1.1, Z-score 1.1 Right Total Hip: 2018: 0.896 g/cm2 Statistically significant decrease Left Femoral Neck: 0.552 g/cm2, T-score -2.7, Z-score -0.3 Left Femoral Neck: 2018: 0.671 g/cm2 Statistically significant decrease Left Total Hip: 0.818 g/cm2, T-score -1.0, Z-score 1.2 Left Total Hip: 2018: 0.908 g/cm2 Statistically significant decrease CHANGE IS STATISTICALLY SIGNIFICANT IN THE SPINE OR HIP IF GREATER THAN OR EQUAL TO 0.04 g/cm2 VERTEBRAL FRACTURE ASSESSMENT Not performed. IMPRESSION: THE LOWEST T-SCORE IS -2.8 IN THE RIGHT HIP 1) DIAGNOSIS (based on BMD alone): OSTEOPOROSIS Caution: Medical conditions other than osteoporosis may cause low bone density, such as osteomalacia or renal osteodystrophy. Clinical correlation is necessary. 2) FRACTURE RISK (based on FRAX): 10-year absolute fracture risk: - major osteoporotic fracture = 46 % - hip fracture = 32 % - A diagnosis of Osteoporosis, a 10 year probability of hip fracture greater than or equal to 3% or a 10 year probability of any major osteoporosis-related fracture greater than or equal to 20% should be considered for treatment. - DXA scanner generated FRAX calculations may slightly differ from online FRAX calculations due to differences in software versions. - All recommendations and calculations are to be considered as guidelines and should not replace sound clinical judgement - Caution: Fracture risk may be increased independent of BMD in patients with corticosteroid use, age greater than 65 years, or a history of prior fragility fracture. RECOMMENDATIONS: Follow-up in 2 years or as clinically indicated. Patients that are taking corticosteroids, are transplant recipients or have hyperparathyroidism should have annual follow-up. Follow-up scans should always be done on the same machine for accurate comparison. FOR MORE INFORMATION ABOUT DIAGNOSIS AND TREATMENT: [facility]osis [facility] Metabolic Bone Disease:? www.ccf.org/arthritis/osteo National Osteoporosis Foundation:? www.nof.org International Society of Clinical Densitometry www.iscd.org Charging Plug Placer: RODOLFO Transcribe Date/Time: May 26 2024 5:45A Dictated by : AVI SOTELO MD This examination was interpreted and the report reviewed and electronically signed by: AVI SOTELO MD on May 26 2024 5:47AM EST [id number] -2.8 Normal [facility] US THYROID/PARATHYROIDon US THYROID/PARATHYROID * * *Final Report * * * DATE OF EXAM: May 23 2024 11:10AM [facility] 1048 - US THYROID/PARATHYROID / PROCEDURE REASON: Multiple thyroid nodules * * * * Physician Interpretation * * * * EXAMINATION: THYROID ULTRASOUND CLINICAL HISTORY: Multiple thyroid nodules TECHNIQUE: Sonography and Doppler imaging of the thyroid was performed. Images were obtained and stored in a permanent archive. MQ: UST_1 COMPARISON: 03/24/2021 RESULT: Right Lobe: 3.4 cm x 1.1 cm x 1.2 cm; homogeneous echogenicity, expected vascular flow. Left Lobe: 3.0 cm x 1.6 cm x 1.4 cm; homogeneous echogenicity, expected vascular flow. Isthmus: 0.6 cm The most suspicious thyroid nodule(s) (up to four) as below: NODULE 1: Location: Right posterior midpole Size: 0.7 x 0.6 x 0.5 cm Characteristics: Composition: Solid or almost completely solid, 2 points Echogenicity: Hypoechoic, 2 points Shape: [id number], 0 points Margin: Smooth, 0 points Echogenic foci (add points for all that apply): None, 0 points Internal vascularity: absent Interval growth: No prior available for comparison TI-RADS Category: TR4 ACR Recommendation: TI-RADS 4 nodule. No FNA or follow-up imaging is advised. NODULE 2: Location: Right mid/upper pole Size: 0.6 x 0.4 x 0.5 cm Characteristics: Composition: Solid or almost completely solid, 2 points Echogenicity: Hypoechoic, 2 points Shape: Fwpvd-[id number]-lbca, 0 points Margin: Ill-defined, 0 points Echogenic foci (add points for all that apply): Macrocalcifications, 1 point Internal vascularity: absent Interval growth: Either new or not appreciated on the prior study TI-RADS Category: TR4 ACR Recommendation: TI-RADS 4 nodule. No FNA or follow-up imaging is advised. NODULE 3: Location: Left mid Size: 0.8 x 0.6 x 0.4 cm Characteristics: Composition: Mixed cystic and solid, 1 point Echogenicity: Isoechoic, 1 point Shape: Xuzyx-slts-uxyd, 0 points Margin: Smooth, 0 points Echogenic foci (add points for all that apply): None, 0 points Internal vascularity: absent Interval growth: No significant growth given differences in technique TI-RADS Category: TR2 ACR Recommendation: TI-RADS 2 Nodule. No follow-up or FNA is advised. IMPRESSION: Subcentimeter thyroid nodules are present. No surveillance is advised. TI-RADS Category: TR4 ACR Recommendation: TI-RADS 4 nodule. No FNA or follow-up imaging is advised. ACR recommendations are strictly based on the size and imaging appearance at the time of the exam and do not consider stability or previous biopsy results. Charging Plug Placer: RODOLFO Transcribe Date/Time: May 26 2024 10:03A Dictated by : PAULINO KAUR MD This examination was interpreted and the report reviewed and electronically signed by: PAULINO KAUR MD on May 26 2024 10:07AM EST [id number] Normal [facility] ALKALINE PHOSPHATASE ISOENZY MES (P)on 05-14-2024 ALK PHOS BONE % 31.6 % Normal 10.7-68.3 [facility] Comment on above: Order Comment: Speci men Type: BLOOD SPECIMENOrdering Facility: [facility] Address: [address] [place] [address] Performed By: #### A LKISOP ####[facility] LABIA [id number] [place] [address] [place] ALK PHOS LIVER % 53.9 % Normal 26.0-86.2 [facility] Comment on above: Order Comment: Speci men Type: BLOOD SPECIMENOrdering Facility: [facility] Address: [address] [place] [address] Performed By: #### A LKISOP ####[facility] LABIA [id number] [place] [address] [place] BONE FRACTION 61.0 U/L High 12.9-52.6 [facility] Comment on above: Order Comment: Speci men Type: BLOOD SPECIMENOrdering Facility: [facility] Address: [address] [place] [address] Performed By: #### A LKISOP ####[facility] LABCLIA [id number] [place] [address] [place] INTESTINE FRACTION 28.2 U/L High 0.0-16.3 [facility] Comment on above: Order Comment: Speci men Type: BLOOD SPECIMENOrdering Facility: [facility] Address: [address] [place] [address] Performed By: #### A LKISOP ####[facility] LABCLIA [id number] [address] LIVER FRACTION 104.0 U/L High 16.0-69.3 [facility] Comment on above: Order Comment: Speci men Type: BLOOD SPECIMENOrdering Facility: [facility] Address: [address] [place] [address] Performed By: #### A LKISOP ####[facility] LABCLIA [id number] [address] [place] Neutrophils/100 WBC (Bld) 14.6 % Normal 0.0-24.2 [facility] Comment on above: Order Comment: Speci men Type: BLOOD SPECIMENOrdering Facility: [facility] Address: [address] [place] [address] Performed By: #### A LKISOP ####[facility] LABIA [id number] [address] [place] CNOVon 05-14-2024 CNOV Office Visit (FAMPWS ) MARCI MARIE ([id number]) 1940 F DEF Date Time Provider Department 05/14/24 12:40 PM SHARONA BETTENCOURT During your visit today, we recorded the following information about you: Temperature Pulse Respiration Blood pressure 97.1 degrees 72/minute 18/minute 136/68 Weight 103 kg Sharona Bettencourt PA-C 05/14/2024 2:41 PM Signed Chief Complaint Patient presents with: Recheck: Blood pressure HPI Marci Marie is a 84 year old female who presents here today for Above Complaints.. At last visit we increased coreg to 6.25mg BID. Patient states that her home readings have been around 134/60s over the past week. Never over 160/100 since med adjustment. Past medical history, appointments, medications, allergies reviewed. Previous Medical History PAST MEDICAL HISTORY Diagnosis Date Acquired deformity of left toe 03/21/2021 second and third digits Adjustment disorder with depressed mood 01/19/2020 Aortic stenosis, mild 12/02/[address] 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 Hiatal hernia History of colon polyps Mixed hyperlipidemia Morbid obesity with BMI of 40.0-44.9, adult (HCC) 06/19/2016 Multiple thyroid nodules 03/24/2021 US 03/2021: Needs yearly f/u for 5 yrs OAB (overactive bladder) 10/10/2022 Osteopenia 04/24/2011; Start vitamin d 1,000/day and RE-CHECK 2013 Personal history of other malignant neoplasm of skin 02/26/2009 Schatzki's ring Sebaceous cyst 07/03/2017 lower anterior neck Skin cancer, basal cell 04/23/2015 nose Stricture and stenosis of esophagus egd/dilatation by Dr. Hollins; Tinnitus of both ears 12/26/2021 Due to hearing loss. 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 Dr. Filemon Galvan. COLONOSCOPY SCRN NOT HIGH RISK 06/10/2003 upper and lower EGD 08/17/2009 Dr. Theo Hollins EGD DILATION 11/04/2018 Schatzi's Ring, mild reactive gastropathy. Dr. Filemon Galvan. ESOPHAGOGASTRODUODENOSCOPY TRANSORAL DIAGNOSTIC 06/2003 EGD EXERCISE ECG STRESS TEST 03/02/2020 negative NOSE SURGERY HX 2006 Nasal fracture repair REVISE MEDIAN N/CARPAL TUNNEL SURG Right 09/14/2022 TONSILLECTOMY AND ADENOIDECTOMY HX WRIST SURGERY HX 12/1988 Broken Left wrist surgery at [facility] - Dr. Delgado Family History FAMILY HISTORY Problem Relation Age of Onset Allergies Mother Heart Mother Asthma Mother Alzheimer's Disease Father Heart disease Father Hypertension Father Hypertension Maternal Grandmother DVT Maternal Grandmother Stroke Paternal Grandmother Stroke Paternal Grandfather Hypertension Brother Diabetes Brother Patient Allergies ALLERGIES Allergen Reactions Codeine Rash Penicillins Rash Pioglitazone Other: See Comments Increased leg edema and CHF symptoms Prednisone Rash Acetaminophen Other: See Comments Niacin Unknown Celebrex [Celecoxib] Unknown Niacin Rash Sulfa (Sulfonamide * Rash Current Medications Current Outpatient Medications on File Prior to Visit Medication Sig carvedilol (COREG) 6.25 mg tablet Take 1 tablet by mouth two times a day with meals. insulin glargine (LANTUS SOLOSTAR U-100 INSULIN) 100 unit/mL (3 mL) Inject 10 Units subcutaneously daily at bedtime. Insulin [place], Disposable, (PEN NEEDLE) 32 gauge x 5/32 Inject 1 Each subcutaneously every 24 hours. Give with each insulin administration. SITagliptin phosphate (JANUVIA) 100 mg tablet Take 1 tablet by mouth once daily. lisinopril (ZESTRIL) 40 mg tablet Take 1 tablet by mouth two times a (more content not included)... Normal [facility] Calcium SerPl-mCncon 025 Calcium [Mass/Vol] 10.1 mg/dL Normal 8.5-10.2 [facility] Comment on above: Order Comment: Speci men Type: BLOOD SPECIMENOrdering Facility: [facility] Address: [address] [place] [address] Performed By: #### 1 7861-6, 6768-6, 89015-8 ####[facility] [id number] [place] [address] [place] HAV IgM Ser Qlon 05-14-2024 HAV IgM Ql (S) Negative Normal Negative [facility] Comment on above: Order Comment: Noemi efrnandes Type: BLOOD SPECIMENOrdering Facility: [facility] Address: [address] [place] [address] Result Comment: No e vidence of recent infection with Hepatitis A virus. Performed By: #### 3 1204-1, 5195-3, 29384-9 ####[facility] [id number] [place] [address] [place] HBV core IgM Ser Qlon 2024 HBV core IgM Ql (S) Negative Normal Negative [facility] Comment on above: Order Comment: Noemi fernandes Type: BLOOD SPECIMENOrdering Facility: [facility] Address: [address] [place] [address] Result Comment: No e vidence of recent infection with Hepatitis B virus. Should recent infection be suspected, repeat testing may be considered 3-4 weeks after this draw. Performed By: #### 3 1204-1, 5195-3, 86234-8 ####[facility] LABCLIA [id number] [place] [address] [place] HBV surface Ag Ser Qlon 05-03 HBV surface Ag Ql (S) Negative Normal Negative [facility] Comment on above: Order Comment: Speci men Type: BLOOD SPECIMENOrdering Facility: [facility] Address: [address] [place] [address] Performed By: #### 3 1204-1, 5195-3, 21612-0 ####[facility] LABCLIA [id number] [place] [address] [place] HCV Ab Ser Qlon 05-14-2024 HCV Ab Ql (S) Negative Normal Negative [facility] Comment on above: Order Comment: Speci men Type: BLOOD SPECIMENOrdering Facility: [facility] Address: [address] [place] [address] Result Comment: The result suggests no evidence of active infection with Hepatitis C virus. Should recent infection be suspected, repeat testing may be considered 4-6 weeks after this draw. Performed By: #### 1 6128-1 ####[facility] LABCLIA [id number] [place] [address] [place] Hep Func 2000 Pnl SerPlon ALP [Catalytic activity/Vol] 193 U/L High 34-123 [facility] Comment on above: Order Comment: Speci men Type: BLOOD SPECIMENOrdering Facility: [facility] Address: [address] [place] [address] Performed By: #### 1 7861-6, 6768-6, 19298-2 ####[facility] LABCLIA [id number] [place] [address] [place] Hepatic function 2000 panelo n 05-14-2024 Albumin [Mass/Vol] 4.2 g/dL Normal 3.9-4.9 [facility] Comment on above: Order Comment: Speci men Type: BLOOD SPECIMENOrdering Facility: [facility] Address: [address] [place] [address] Performed By: #### 1 7861-6, 6768-6, 22052-6 ####[facility] LABCLIA [id number] [place] [address] [place] ALT [Catalytic activity/Vol] 18 U/L Normal 7-38 [facility] Comment on above: Order Comment: Speci men Type: BLOOD SPECIMENOrdering Facility: [facility] Address: [address] [place] [address] Performed By: #### 1 7861-6, 6768-6, 98719-7 ####[facility] LABCLIA [id number] [place] [address] [place] AST [Catalytic activity/Vol] 16 U/L Normal 13-35 [facility] Comment on above: Order Comment: Speci men Type: BLOOD SPECIMENOrdering Facility: [facility] Address: [address] [place] [address] Performed By: #### 1 7861-6, 6768-6, 45391-8 ####[facility] LABIA [id number] [place] [address] [place] Bilirubin [Mass/Vol] 0.5 mg/dL Normal 0.2-1.3 [facility] Comment on above: Order Comment: Speci men Type: BLOOD SPECIMENOrdering Facility: [facility] Address: [address] [place] [address] Performed By: #### 1 7861-6, 6768-6, 96295-0 ####[facility] LABCLIA [id number] [place] [address] [place] Bilirubin.conjugated [Mass/Vol] 0.2 mg/dL Normal <0.3 [facility] Comment on above: Order Comment: Speci men Type: BLOOD SPECIMENOrdering Facility: [facility] Address: [address] [place] [address] Performed By: #### 1 7861-6, 6768-6, 93616-6 ####[facility] LABCLIA [id number] [address] [address] [place] Protein [Mass/Vol] 7.0 g/dL Normal 6.3-8.0 [facility] Comment on above: Order Comment: Speci men Type: BLOOD SPECIMENOrdering Facility: [facility] Address: [address] [place] [id number] Performed By: #### 1 7861-6, 6768-6, 18420-0 ####[facility] LABCLIA [id number] [place] [id number] [place] Gastroenterology Visit Repor ton 04-30-2024 Gastroenterology Visit Report [facility] [address] [place] [address] OFFICE VISIT Date of Service: 04/30/24 MR#: [id number] Acct: [id number] Name: MARCI MARIE Rep #: [id number] : 1940 Provider: PATRIZIA Banda Age/Sex: 84/F Location: [facility] [place] Status: Signed Intake Vital Signs 01/15/24 19:01 04/22/24 21:35 Height 5 ft 6 in 5 ft 6 in Intake Visit Reasons: Pre Colon Chief Complaint: GERD, diffiuclty swallowing, IBS Allergies acetaminophen (From Vicodin) Allergy (Verified 04/22/24 21:35) Other celecoxib (From Celebrex) Allergy (Verified 04/22/24 21:35) Unknown codeine Allergy (Verified 04/22/24 21:35) Unknown hydrocodone (From Vicodin) Allergy (Verified 04/22/24 21:35) Other morphine Allergy (Verified 04/22/24 21:35) Other niacin Allergy (Verified 04/22/24 21:35) Unknown Penicillins Allergy (Verified 04/22/24 21:35) Unknown prednisone Allergy (Verified 04/22/24 21:35) Unknown Sulfa (Sulfonamide Antibiotics) Allergy (Verified 04/22/24 21:35) Unknown Medications ???Medication ???Instructions ???Recorded ???Confirmed ???Type metformin 500 mg tablet 500 mg PO UD diabetes 07/05/17 04/30/24 History hydrochlorothiazide 25 mg tablet 25 mg PO DAILY diuretic 04/01/18 04/30/24 History carvedilol 3.125 mg tablet (Coreg) 3.125 mg PO BID BP 10/10/22 04/30/24 History nitroglycerin 0.4 mg sublingual 0.4 mg sublingual Q5M 10/10/22 04/30/24 History tablet (Nitrostat) sitagliptin phosphate 100 mg 100 mg PO DAILY blood sugar 10/10/22 04/30/24 History tablet (Januvia) furosemide 80 mg tablet 40 mg (1/2 x 80 mg) PO DAILY PRN 08/14/23 04/30/24 Rx edema 30 days #0 tabs amlodipine 5 mg tablet 5 mg PO DAILY 04/22/24 04/30/24 History cefadroxil 500 mg capsule 500 mg PO BID 04/22/24 04/30/24 History clonidine HCl 0.1 mg tablet 0.1 mg PO BID PRN SBP > 170 #10 04/22/24 04/30/24 Rx tabs glimepiride 2 mg tablet 2 mg PO QPM 04/22/24 04/30/24 History lisinopril 40 mg tablet 40 mg PO BID 04/22/24 04/30/24 History pantoprazole 40 mg tablet,delayed 40 mg PO QDAY #90 tabs 04/30/24 04/30/24 Rx release Have you fallen in the past year?: No PFSH Medical History History of esophageal dilatation Obesity (BMI 35.0-39.9 without comorbidity) Edema of right lower extremity due to peripheral venous insufficiency Edema of left lower extremity due to peripheral venous insufficiency Edema of right lower extremity Edema of left lower extremity Swelling of right lower extremity Swelling of left lower extremity Venous stasis dermatitis Atrial fibrillation Overactive bladder Esophageal stricture Hearing deficit Tinnitus History of basal cell cancer Diaphragmatic hernia Diabetic neuropathy Aortic stenosis Hyperlipidemia Chronic venous insufficiency Osteoporosis Thrombocytopenia Metabolic acidosis Hypokalemia Gastroenteritis Acute kidney injury Hiatal hernia Dyslipidemia HTN (hypertension) GERD (gastroesophageal reflux disease) Esophageal spasm Diabetes mellitus Surgical History History of tonsillectomy History of nasal surgery History of surgery on left wrist History of cholecystectomy History repair broken nose history ORIF left wrist History of laparoscopic cholecystectomy Family History Mother Asthma Father Heart disease Hypertension Arthritis Social History Smoking Status: Never smoker alcohol intake: never substance use type: does not use HPI HPI Chief Complaint: GERD, diffiuclty swallowing, IBS Details: MARCI WYATTULTZ, is a 84 F who presents to the office today for establishment. Pt has been struggling with swallowing for some time now. She has issues with certain foods such as grape skin. This is happening everyday. She has to drink copious amounts of water to get the food to pass. She will regurgitate her food on occasion. She also has daily heartburn. She is not currently on a PPI but has been in the past. She has alternating constipation and diarrhea which is normal for her. She is mostly constipated at this point and will take ex lax as needed. She has been diagnosed with IBS in the past. SHe has never taken daily stool softener or laxatives. Last colonoscopy; 11.04.2018 with tubulovillous adenoma, recommendation for repeat in 5 years. Last EGD; 2009 with esophageal dilation of Schatzki ring ROS Const Constitutional: Positive for fatigue, headache(s) and weight change (weight loss); No fever(s) ENT ENT: Positive for headache(s) and difficulty swallowing Cardio Cardiology: Positive for leg pain with exertion Gastro GI: Positive for (more content not included)... Normal [facility] CNOVon 04-29-2024 CNOV Office Visit (FAMPWS ) MARCI MARIE ([id number]) 1940 F DEF Date Time Provider Department 04/29/24 11:40 AM SHARONA BETTENCOURT During your visit today, we recorded the following information about you: Temperature Pulse Respiration Blood pressure 97.9 degrees 82/minute 18/minute 157/63 Sharona Bettencourt PA-C 04/29/2024 1:11 PM Signed Chief Complaint Patient presents with: ER F/U HPI Marci Marie is a 84 year old female who presents here today for ER Follow Up.. Patient presented to ER via squad due to headaches/hearing changes. BP was 217/100. Workup at ER was negative. She was given clonidine to help lower BP. Patient states that for the past few days she is only taking the clonidine. She has not been taking her other BP medications since then. States she thought that the ER doctor and pharmacist told her. She states did take her lisinopril this morning. Past medical history, appointments, medications, allergies reviewed. Previous Medical History PAST MEDICAL HISTORY Diagnosis Date Acquired deformity of left toe 03/21/2021 second and third digits Adjustment disorder with depressed mood 01/19/2020 Aortic stenosis, mild 12/02/[address] 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 Hiatal hernia History of colon polyps Mixed hyperlipidemia Morbid obesity with BMI of 40.0-44.9, adult (HCC) 06/19/2016 Multiple thyroid nodules 03/24/2021 US 03/2021: Needs yearly f/u for 5 yrs OAB (overactive bladder) 10/10/2022 Osteopenia 04/24/2011; Start vitamin d 1,000/day and RE-CHECK 2013 Personal history of other malignant neoplasm of skin 02/26/2009 Schatzki's ring Sebaceous cyst 07/03/2017 lower anterior neck Skin cancer, basal cell 04/23/2015 nose Stricture and stenosis of esophagus egd/dilatation by Dr. Hollins; Tinnitus of both ears 12/26/2021 Due to hearing loss. 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 Dr. Filemon Galvan. COLONOSCOPY SCRN NOT HIGH RISK 06/10/2003 upper and lower EGD 08/17/2009 Dr. Theo Hollins EGD DILATION 11/04/2018 Schatzi's Ring, mild reactive gastropathy. Dr. Filemon Galvan. ESOPHAGOGASTRODUODENOSCOPY TRANSORAL DIAGNOSTIC 06/2003 EGD EXERCISE ECG STRESS TEST 03/02/2020 negative NOSE SURGERY HX 2006 Nasal fracture repair REVISE MEDIAN N/CARPAL TUNNEL SURG Right 09/14/2022 TONSILLECTOMY AND ADENOIDECTOMY HX WRIST SURGERY HX 12/1988 Broken Left wrist surgery at [facility] - Dr. Delgado Family History FAMILY HISTORY Problem Relation Age of Onset Allergies Mother Heart Mother Asthma Mother Alzheimer's Disease Father Heart disease Father Hypertension Father Hypertension Maternal Grandmother DVT Maternal Grandmother Stroke Paternal Grandmother Stroke Paternal Grandfather Hypertension Brother Diabetes Brother Patient Allergies ALLERGIES Allergen Reactions Codeine Rash Penicillins Rash Pioglitazone Other: See Comments Increased leg edema and CHF symptoms Prednisone Rash Acetaminophen Other: See Comments Niacin Unknown Celebrex [Celecoxib] Unknown Niacin Rash Sulfa (Sulfonamide * Rash Current Medications Current Outpatient Medications on File Prior to Visit Medication Sig SITagliptin phosphate (APRUVIA) 100 mg tablet Take 1 tablet by mouth once daily. lisinopril (ZESTRIL) 40 mg tablet Take 1 tablet by mouth two times a day. hydroCHLOROthiazide 25 mg tablet Take 1 tablet by mouth once daily. furosemide (LASIX) 40 mg tablet Take 1 tablet by mouth as needed. glimepiride (more content not included)... Normal [facility] US ABD RIGHT UPPER QUADRANTo n 04-28-2024 US ABD RIGHT UPPER QUADRANT * * *Final Report* * * DATE OF EXAM: Apr 28 2024 10:41AM [facility] 1032 - US ABD RIGHT UPPER QUADRANT / PROCEDURE REASON: multiple diagnoses * * * * Physician Interpretation * * * * EXAMINATION: RIGHT UPPER QUADRANT AND SPLEEN ULTRASOUND CLINICAL HISTORY: Elevated alkaline phosphatase level and liver function tests TECHNIQUE: Sonography of the right upper quadrant and spleen was performed. Images were obtained and stored in a permanent archive and interpreted remotely. MQ: URUQ_2 COMPARISON: Ultrasound dated 05/17/2020 RESULT: Pancreas: Normal sonographic appearance. Portions obscured: tail Liver: Echotexture: Normal, homogeneous. Echogenicity: Normal Surface contour: Smooth Lesions: None. Biliary: No intrahepatic biliary duct dilation. CBD: 0.4 cm at the hilum. Gallbladder: Prior cholecystectomy Survey view of the bilateral kidneys: No hydronephrosis. Spleen: Normal in size measuring 10.6 cm in craniocaudad dimension. No sonographic evidence of focal splenic lesion. Ascites: None. IMPRESSION: 1. Normal sonographic appearance of the liver. 2. Prior cholecystectomy. No sonographic evidence of biliary ductal dilation. Charging Plug Placer: [facility] Transcribe Date/Time: Apr 29 2024 6:41A Dictated by : AVI SOTELO MD This examination was interpreted and the report reviewed and electronically signed by: AVI SOTELO MD on Apr 29 2024 6:42AM EST [id number] Normal [facility] US ABD SPLEEN -NBon 04-28-19 US ABD SPLEEN -NB * * *Final Report* * * DATE OF EXAM: Apr 28 2024 10:41AM U 1232 - US ABD SPLEEN -NB / PROCEDURE REASON: multiple diagnoses * * * * Physician Interpretation * * * * EXAMINATION: RIGHT UPPER QUADRANT AND SPLEEN ULTRASOUND CLINICAL HISTORY: Elevated alkaline phosphatase level and liver function tests TECHNIQUE: Sonography of the right upper quadrant and spleen was performed. Images were obtained and stored in a permanent archive and interpreted remotely. MQ: URUQ_2 COMPARISON: Ultrasound dated 05/17/2020 RESULT: Pancreas: Normal sonographic appearance. Portions obscured: tail Liver: Echotexture: Normal, homogeneous. Echogenicity: Normal Surface contour: Smooth Lesions: None. Biliary: No intrahepatic biliary duct dilation. CBD: 0.4 cm at the hilum. Gallbladder: Prior cholecystectomy Survey view of the bilateral kidneys: No hydronephrosis. Spleen: Normal in size measuring 10.6 cm in craniocaudad dimension. No sonographic evidence of focal splenic lesion. Ascites: None. IMPRESSION: 1. Normal sonographic appearance of the liver. 2. Prior cholecystectomy. No sonographic evidence of biliary ductal dilation. Charging Plug Placer: RODOLFO Transcribe Date/Time: Apr 29 2024 6:41A Dictated by : AVI SOTELO MD This examination was interpreted and the report reviewed and electronically signed by: AVI SOTELO MD on Apr 29 2024 6:42AM EST [id number] Normal [facility] Absolute neutrophil countOrd ered By: Fer Choudhury on 04-22-2024 Neutrophils (Bld) [#/Vol] 2.9 10*3/uL 2.0-7.7 [facility] Automated blood erythrocyte countOrdered By: Fer Choudhury on 04-22-2024 RBC (Bld) [#/Vol] 4.25 10*6/uL Normal 4.2-5.4 [facility] Comment on above: Performed By: #### L 500.2500, L100.0100 ####[facility] [address] [facility]. [place], [place], [id number] Automated blood hematocrit ( percentage)Ordered By: Fer Choudhury on 04-22-2024 Hematocrit (Bld) [Volume fraction] 40.4 % Normal 37-47 [facility] Comment on above: Performed By: #### L 500.2500, L100.0100 ####[facility] [address] [place], [address] Automated lymphocyte count a s percentage of total leukocytesOrdered By: Fer Choudhury on 04-22-2024 Lymphocytes/100 WBC (Bld) 34.2 % Normal 19-41 [facility] Comment on above: Performed By: #### L 500.2500, L100.0100 ####[facility] [address] [place], [address] Basic Metabolic Profile (BMP )on 04-22-2024 BUN/CRE 29.7 RATIO High 10-20 [facility] Comment on above: Performed By: #### L 500.2500, L100.0100 ####[facility] [address] [place], [address] CA,Total 10.1 mg/dL Normal 8.5-10.1 [facility] Comment on above: Performed By: #### L 500.2500, L100.0100 ####[facility] [address] [place], [address] ECRCL 57.53 ml/min Normal [facility] Comment on above: Performed By: #### L 500.2500, L100.0100 ####[facility] [address] [place], [address] EST GFR - AA 76 mL/min Normal >60 [facility] Comment on above: Result Comment: Afri can Indian GFR Calc Performed By: #### L 500.2500, L100.0100 ####[facility] [address] [place], [address] GAP 6 Normal 5-15 [facility] Comment on above: Performed By: #### L 500.2500, L100.0100 ####[facility] [address] [place], [address] GFR/1.73 sq M.predicted among non-blacks MDRD (S/P/Bld) [Vol rate/Area] 63 mL/min/{1.73_m2} Normal >60 [facility] Comment on above: Result Comment: Non- GFR Calc Performed By: #### L 500.2500, L100.0100 ####[facility] [address] [place], [address] Basophil percentageOrdered B y: Fer Choudhury on 04-22-2024 Basophils/100 WBC (Bld) 1.2 % High 0-1 [facility] Comment on above: Performed By: #### L 500.2500, L100.0100 ####[facility] [address] [place], [address] Blood urea nitrogen (BUN)/cr eatinine ratioOrdered By: Fer Choudhury on 04-22-2024 Urea nitrogen/Creatinine [Mass ratio] 29.7 mg/mg High 10-20 [facility] Brain/Head without Contrasto n 04-22-2024 Brain/Head without Contrast [facility] Services [address] [place] [address] Brain/Head without Contrast MR#: [id number] Acct: [id number] Name: MARCI MAREI Rep #: [id number] : 1940 F 84 From: Praveen Mai PCP: Dr. Arturo Amaya MD Status: [facility] Study: Brain/Head without Contrast Date of Exam: 04/03 04/26 Exam# [id number] Ordering Dr: Fer Choudhury MD [id number] EXAM: CT HEAD WITHOUT INTRAVENOUS CONTRAST CLINICAL INDICATION: headache TECHNIQUE: Multiple axial images were obtained of the head without intravenous contrast. This CT exam was performed using one or more of the following dose reduction techniques: automated exposure control, adjustment of the mA and/or kV according to patient size, and/or use of iterative reconstruction technique. RADIATION DOSE: CTDIvol = 44.99 mGy, DLP = 880.47 mGy-cm COMPARISON: 12/07/2022. FINDINGS: BRAIN AND EXTRA-AXIAL SPACES: Mild generalized atrophy. Mild low density bilaterally in the deep white matter. No intra- or extra-axial hemorrhage. No evidence of acute infarct. No intracranial mass or mass effect. There is preservation of the latham/white matter interface. Posterior fossa structures are unremarkable. No hydrocephalus. Basal cisterns are patent. BONES/JOINTS: Unremarkable. No discrete lytic or blastic abnormalities. SINUSES: Unremarkable as visualized. Clear. MASTOID AIR CELLS: Unremarkable. Clear. ORBITS: Visualized globes, extraocular muscles, optic nerves and retrobulbar fat appear unremarkable. CT/Brain/Head without Contrast IMPRESSION: Mild generalized atrophy. Mild low density bilaterally in the deep white matter. This likely represents chronic small vessel ischemic changes in the deep white matter. Electronically Signed: Praveen Webster MD at 22:58 EST , CC: Dr. Fer Choudhury MD; Dr. Arturo Amaya MD Charging Plug Placer: Signed Normal [facility] CBC W/Diff, Automatedon 04-03 Absolute Lymph 1.95 X10 3/uL Normal 0.83-4.51 [facility] Comment on above: Performed By: #### L 500.2500, L100.0100 ####[facility] [address] [place], [address] Absolute Neut 2.9 X10 3/uL Normal 2.0-7.7 [facility] Comment on above: Performed By: #### L 500.2500, L100.0100 ####[facility] [address] [place], [address] IG% 0.200 Normal 0.0-0.9 [facility] Comment on above: Result Comment: IG% - Immature Granulocytes (promyelocytes, myelocytes and metamyelocytes) > 1% indicates that a LEFT SHIFT is Present. Performed By: #### L 500.2500, L100.0100 ####[facility] [address] [place], [address] Nucleated RBC (Bld) [#/Vol] 0 10*3/uL Normal 0-5 [facility] Comment on above: Performed By: #### L 500.2500, L100.0100 ####[facility] [address] [place], [address] RDW SD 48.1 fl High 35.1-43.9 [facility] Comment on above: Performed By: #### L 500.2500, L100.0100 ####[facility] [address] [place], [address] Carbon dioxide measurementOr dered By: Fer Choudhury on 04-22-2024 CO2 [Moles/Vol] 28.0 mmol/L Normal 21.0-32.0 [facility] Comment on above: Performed By: #### L 500.2500, L100.0100 ####[facility] [address] [place], [address] Chloride measurementOrdered By: Fer Choudhury on 04-22-2024 Chloride [Moles/Vol] 105 mmol/L Normal 98-107 [facility] Comment on above: Performed By: #### L 500.2500, L100.0100 ####[facility] [address] [place], [address] Emergency Department Summary on 04-22-2024 Emergency Department Summary [facility] Medical Records Department [address] [place] [address] Emergency Department Summary 04/22/24 MR#: [id number] Acct: [id number] Name: MARCI MARIE Rep #: [id number] : 1940 84 From: Fer Choudhury MD PCP: Dr. 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 She states none of this is new. She states she was seen at urgent care sometime this past week or 2 and started on amlodipine 2.5 mg in addition to her other blood pressure medications because she has been having high numbers. Her head pressure has been waxing and waning. She states yesterday it was really severe. Right now and tonight it is not and it is barely there. She has had no recent illness or fall or injury, she denies any chest discomfort, dyspnea, vision changes, speech changes, or focal neurologic symptoms. She has chronic leg edema that is unchanged. 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 [facility] Medical History History of esophageal dilatation Obesity (BMI 35.0-39.9 without comorbidity) Edema of right lower extremity due to peripheral venous insufficiency Edema of left lower extremity due to peripheral venous insufficiency Edema of right lower extremity Edema of left lower extremity Swelling of right lower extremity Swelling of left lower extremity Venous stasis dermatitis Atrial fibrillation Overactive bladder Esophageal stricture Hearing deficit Tinnitus History of basal cell cancer Diaphragmatic hernia Diabetic neuropathy Aortic stenosis Hyperlipidemia Chronic venous insufficiency Osteoporosis Thrombocytopenia Metabolic acidosis Hypokalemia Gastroenteritis Acute kidney injury Hiatal hernia Dyslipidemia HTN (hypertension) GERD (gastroesophageal reflux disease) Esophageal spasm Diabetes mellitus Home Medications ???Medication ???Instructions ???Recorded ???Last Taken ???Type metformin 500 mg tablet 500 mg PO UD diabetes 07/05/17 07/29/23 History hydrochlorothiazide 25 mg tablet 25 mg PO DAILY diuretic 04/01/18 07/29/23 05:00 History carvedilol 3.125 mg tablet (Coreg) 3.125 mg PO BID BP 10/10/22 08/12/23 10:00 History 3.125 mg nitroglycerin 0.4 mg sublingual 0.4 mg sublingual Q5M 10/10/22 Unknown History tablet (Nitrostat) sitagliptin phosphate 100 mg 100 mg PO DAILY blood sugar 10/10/22 07/29/23 History tablet (Januvia) furosemide 80 mg tablet 40 mg (1/2 x 80 mg) PO DAILY PRN 08/14/23 Unknown Rx edema 30 days #0 tabs amlodipine 5 mg tablet 5 mg PO DAILY 04/22/24 Unknown History cefadroxil 500 mg capsule 500 mg PO BID 04/22/24 Unknown History clonidine HCl 0.1 mg tablet 0.1 mg PO BID PRN SBP > 170 #10 04/22/24 Unknown Rx tabs glimepiride 2 mg tablet 2 mg PO QPM 04/22/24 Unknown History lisinopril 40 mg tablet 40 mg PO BID 04/22/24 Unknown History Allergy/AdvReac Type Severity Reaction Status Date / Time acetaminophen (From Vicodin) Allergy Other Verified 04/22/24 21:35 celecoxib (From Celebrex) Allergy Unknown Verified 04/22/24 21:35 codeine Allergy Unknown Verified 04/22/24 21:35 hydrocodone (From Vicodin) Allergy Other Verified 04/22/24 21:35 morphine Allergy Other Verified 04/22/24 21:35 niacin Allergy Unknown Verified 04/22/24 21:35 Penicillins Allergy Unknown Verified 04/22/24 21:35 prednisone Allergy Unknown Verified 04/22/24 21:35 Sulfa (Sulfonamide Allergy Unknown Verified 04/22/24 21:35 Antibiotics) Family History Mother Asthma Father Heart disease Hypertension Arthritis Surgical History History of cholecystectomy History of laparoscopic cholecystectomy History of nasal surgery History of surgery on left wrist History of tonsillectomy history ORIF left wrist History repair broken nose Social History Smoking Status: Never smoker alcohol intake: never substance use type: does not use ROS ROS ED Constitutional Constitutional ED: Denies chills or fever(s) Eyes Eyes: Denies change in vision or diplopia ENT ENT ED: Reports as per HPI and headache(s); Denies rhinorrhea or sore throat Cardiovascular Cardiovascular: Reports leg edema; D (more content not included)... Normal [facility] Eosinophil percentageOrdered By: Fer Choudhury on 04-22-2024 Eosinophils/100 WBC (Bld) 3.5 % Normal 0-5 [facility] Comment on above: Performed By: #### L 500.2500, L100.0100 ####[facility] [address] [place], [address] Erythrocyte distribution wid th ratioOrdered By: Fer Choudhury on 04-22-2024 Erythrocyte distribution width (RBC) [Ratio] 13.8 % Normal 11.6-14.6 [facility] Comment on above: Performed By: #### L 500.2500, L100.0100 ####[facility] [address] [place], [address] Erythrocyte distribution wid th standard deviationOrdered By: Fer Choudhury on 04-22-2024 Erythrocyte distribution width (RBC) [Entitic vol] 48.1 fL High 35.1-43.9 [facility] Estimated glomerular filtrat ion rate (GFR) AmericanOrdered By: Fer Choudhury on 04-22-2024 Estimated GFR (MDRD) Amer 76 mL/min >60 [facility] Comment on above: GFR Calc Estimation of creatinine selena aranceOrdered By: Fer Choudhury on 04-22-2024 Estimated Creatinine Clearance Calc 57.53 ml/min [facility] Glomerular filtration rate ( GFR) estimationOrdered By: Fer Choudhury on 04-22-2024 Estimated GFR (MDRD) Non-Af Amer 63 mL/min >60 [facility] Comment on above: Non- GFR Calc Glucose measurementOrdered B y: Fer Choudhury on 04-22-2024 Glucose [Mass/Vol] 229 mg/dL High 74-106 [facility] Comment on above: Glucose result great er than or equal to 200 mg/dLsuggests DIABETES MELLITUS per A.D.A. criteria. Result Comment: Gluc ose result greater than or equal to 200 mg/dL suggests DIABETES MELLITUS per A.D.A. criteria. Performed By: #### L 500.2500, L100.0100 ####[facility] [address] [place], [address] Hemoglobin measurementOrdere d By: Fer Choudhury on 04-22-2024 Hemoglobin (Bld) [Mass/Vol] 13.7 g/dL Normal 12.0-15.0 [facility] Comment on above: Performed By: #### L 500.2500, L100.0100 ####[facility] [address] [place], [address] Immature granulocytes/100 WB C Auto (Bld)Ordered By: Fer Choudhury on 04-22-2024 Immature granulocytes/100 WBC (Bld) 0.200 % 0.0-0.9 [facility] Comment on above: IG% - Immature Granu locytes (promyelocytes, myelocytes and metamyelocytes) > 1% indicates that a LEFT SHIFT is Present. Lymphocytes Auto (Unsp spec) [#/Vol]Ordered By: Fer Choudhury on 04-22-2024 Lymphocytes (Bld) [#/Vol] 1.95 10*3/uL 0.83-4.51 [facility] MCV (mean corpuscular volume ) determinationOrdered By: Fer Choudhury on 04-22-2024 MCV (RBC) [Entitic vol] 95.1 fL Normal 81-99 [facility] Comment on above: Performed By: #### L 500.2500, L100.0100 ####[facility] [address] [facility] [place], [address] Mean corpuscular hemoglobin (MCH) determinationOrdered By: Fer Choudhury on 04-22-2024 MCH (RBC) [Entitic mass] 32.2 pg High 27.0-32.0 [facility] Comment on above: Performed By: #### L 500.2500, L100.0100 ####[facility] [address] [place], [address] Mean corpuscular hemoglobin concentration (MCHC) determinationOrdered By: Fer Choudhury on 04-22-2024 MCHC (RBC) [Mass/Vol] 33.9 g/dL Normal 32-36 [facility] Comment on above: Performed By: #### L 500.2500, L100.0100 ####[facility] [address] [place], [address] Mean platelet volume determi nationOrdered By: Fer Choudhury on 04-22-2024 Platelet mean volume (Bld) [Entitic vol] 11.2 fL Normal 6.2-12.0 [facility] Comment on above: Performed By: #### L 500.2500, L100.0100 ####[facility] [address] [place], [address] Monocyte percentageOrdered B y: Fer Choudhury on 04-22-2024 Monocytes/100 WBC (Bld) 9.5 % Normal 0-10 [facility] Comment on above: Performed By: #### L 500.2500, L100.0100 ####[facility] [address] [place], [address] Neutrophil percentageOrdered By: Fer Choudhury on 04-22-2024 Neutrophils/100 WBC (Bld) 51.4 % Normal 47-70 [facility] Comment on above: Performed By: #### L 500.2500, L100.0100 ####[facility] [address], [address] Nucleated red blood cell per centageOrdered By: Fer Choudhury on 04-22-2024 Nucleated RBC/100 WBC (Bld) [Ratio] 0 % 0-5 [facility] Platelet countOrdered By: Rashawn Choudhury on 04-22-2024 Platelets (Bld) [#/Vol] 153 10*3/uL Normal 150-450 [facility] Comment on above: Performed By: #### L 500.2500, L100.0100 ####[facility] [address] [place], [address] Potassium measurementOrdered By: Fer Choudhury on 04-22-2024 Potassium [Moles/Vol] 4.0 mmol/L Normal 3.5-5.1 [facility] Comment on above: Performed By: #### L 500.2500, L100.0100 ####[facility] [address] [place], [address] Serum anion gap measurementO rdered By: Fer Choudhury on 04-22-2024 Anion gap [Moles/Vol] 6 mmol/L 5-15 [facility] Serum or plasma calcium stephanie urement (mass/volume)Ordered By: Fer Choudhury on 04-22-2024 Calcium [Mass/Vol] 10.1 mg/dL 8.5-10.1 [facility] Serum or plasma creatinine m easurement (mass/volume)Ordered By: Fer Choudhury on 04-22-2024 Creatinine [Mass/Vol] 0.91 mg/dL Normal 0.55-1.02 [facility] Comment on above: The validity of the calculated GFR & GFRAA in patients over 70 years has not been determined. Clinical correlation is essential. Result Comment: The validity of the calculated GFR GFRAA in patients over 70 years has not been determined. Clinical correlation is essential. Performed By: #### L 500.2500, L100.0100 ####[facility] [address] [place], [address] Serum or plasma urea nitroge n measurement (mass/volume)Ordered By: Fer Choudhury on 04-22-2024 Urea nitrogen [Mass/Vol] 27 mg/dL High 7-18 [facility] Comment on above: Performed By: #### L 500.2500, L100.0100 ####[facility] [address] [place], [address] Sodium levelOrdered By: Kana Choudhury on 04-22-2024 Sodium [Moles/Vol] 139 mmol/L Normal 136-145 [facility] Comment on above: Performed By: #### L 500.2500, L100.0100 ####[facility] [address] [place], [address] White blood cell (WBC) count Ordered By: Fer Choudhury on 04-22-2024 WBC (Bld) [#/Vol] 5.7 10*3/uL Normal 4.4-11.0 [facility] Comment on above: Performed By: #### L 500.2500, L100.0100 ####[facility] [address] [place], [address] CNPNon 04-17-2024 [facility] Telephone (FAMWS) MARCI MARIE ([id number]) 1940 F DEF Date Time Provider Department 04/17/24 [facility] During your visit today, we recorded the following information about you: Suzanna Pimentel RN 04/17/2024 1:20 PM Signed Yessenia Pharmacist with [facility] called in and was asking about the Lantus. She wanted to know when the provider says to dispense 1 each, does he want 1 pen or 1 box of 5 pens. Please call back. Arturo Amaya MD 04/17/2024 1:31 PM Signed Let Pharmacist know that we mean one box. Our system only gives us the choice of ML's or each we can ot select box. However as a provider we were always told the pharmacy can not break up a box and give the patient only one pen and so for us each has always been a box. Suzanna Pimentel RN 04/17/2024 1:42 PM Signed Yessenia Pharmacist with [facility] called and is notified of providers message. She voices understanding. Suzanna Pimentel RN Allergies As of Date: 04/17/2024 Noted Allergy Reaction CODEINE 10/02/2003 2 - Rash PENICILLINS 10/02/2003 2 - Rash PIOGLITAZONE 07/03/2022 14 - Other: See Comments Comments: Increased leg edema and CHF symptoms PREDNISONE 10/02/2003 2 - Rash ACETAMINOPHEN 10/27/2021 14 - Other: See Comments NIACIN 05/01/2021 16 - Unknown CELEBREX (CELECOXIB) 11/26/2004 16 - Unknown NIACIN 10/02/2003 2 - Rash SULFA (SULFONAMIDE ANTIBIOTICS) 10/02/2003 2 - Rash Date Reviewed: 04/15/2024 Reviewed by: Poonam Roman LPN - Fully Assessed Reason for Visit: Medication Question [9428] Prescriptions as of 04/17/2024 - insulin glargine (LANTUS SOLOSTAR U-100 INSULIN) 100 unit/mL (3 mL) Inject 10 Units subcutaneously daily at bedtime. - Insulin [place], Disposable, (PEN NEEDLE) 32 gauge x 5/32 Inject 1 Each subcutaneously every 24 hours. Give with each insulin administration. - SITagliptin phosphate (JANUVIA) 100 mg tablet Take 1 tablet by mouth once daily. - lisinopril (ZESTRIL) 40 mg tablet Take 1 tablet by mouth two times a day. - hydroCHLOROthiazide 25 mg tablet Take 1 tablet by mouth once daily. - furosemide (LASIX) 40 mg tablet Take 1 tablet by mouth as needed. - glimepiride (AMARYL) 2 mg tablet Take 1 tablet by mouth daily with dinner. - carvedilol (COREG) 3.125 mg tablet Take 1 tablet by mouth two times a day with meals. - cefADROxil (DURICEF) 500 mg capsule Take 1 capsule by mouth two times a day for 10 days. - amLODIPine (NORVASC) 5 mg tablet Take 1 tablet by mouth once daily. - metFORMIN (GLUCOPHAGE) 500 mg tablet Take by mouth. take 2 tabs w/breakfast;1 tab with lunch and TWO tabs w/ dinner - nitroglycerin sublingual (NITROQUICK) 0.4 mg SL tablet Dissolve 1 tablet under the tongue as needed. FOR CHEST PAIN. IF NO RELIEF CALL 911 - Blood-Glucose Meter,Continuous (FREESTYLE KIRK 3 READER) misc Check blood sugars 3-4 times a day Dx: E11.65 no insulin - Blood-Glucose Sensor (FREESTYLE KIRK 3 SENSOR) em Apply a new sensor once every 2 weeks. Check blood sugars 3-4 times a day Dx: E11.65 no insulin - Cholecalciferol, Vitamin D3, 2,000 unit cap Take 3 capsules by mouth once daily. Problem List As Of Date 04/17/2024 Noted Resolved Diaphragmatic hernia without mention of obstruc* Herpes zoster [B02.9] Stricture and Stenosis of Esophagus [K22.2] Mixed Hyperlipidemia [E78.2] 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*07/01/2007 Actinic Keratosis [L57.0] 02/26/2009 06/28/2009 Other Seborrheic Keratosis [L82.1] 02/26/2009 06/28/2009 Sun-Damaged Skin [L57.8] 02/26/2009 06/28/2009 Solar Lentigo [L81.4] 02/26/2009 06/28/2009 Scar Condition and Fibrosis of Skin [L90.5] 02/26/2009 06/28/2009 Personal history of other malignant neoplasm of*02/26/2009 Capillary Angioma [I78.1] 02/26/2009 06/28/2009 Xerosis Cutis [L85.3] 02/26/2009 06/28/2009 Venous Stasis [I87.8] 02/26/2009 06/28/2009 Osteopenia [M85.80] 04/24/2011 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)*07/07/2013 Essential hypertension [I10] 07/13/2014 Routine gynecological examination [Z01.419] 07/21/2014 Gastroesophageal reflux disease with esophagiti*04/23/2015 Skin cancer, basal cell [C44.91] 04/23/2015 Bilateral leg edema [R60.0] 05/31/2015 Vitamin D deficiency [E55.9] 11/26/2015 Aortic stenosis, mild [I35.0] 12/02/2015 Venous (peripheral) insufficiency [I87.2] 12/21/2015 Morbid obesity with BMI of 40.0-44.9, adult (HC*06/19/2016 08/20/2023 Diabetic eye exam (HCC) [Z01.00, E11.9] 08/21/2016 Corns and callus [L84] 09/18/2016 Screening for colon cancer [Z12.11] 07/03/2017 Sebaceous cyst [L72.3] 07/03/2017 Elevated serum GGT level [R74.8] 07/03/2017 Microscopic hematuria [R31.29] 08/28/2018 Elevated alkaline phosphatase level [R74.8] 08/28/2018 Uncontrolled type 2 diabetes mellitus with hype*01/02/2020 Adjustment disorder with depressed mood [F43.21]01/19/20 (more content not included)... Normal [facility] FRANKMARCI M ([id number]) 1940 F DEF Date Time Provider Department 04/16/24 SHARONA BETTENCOURT [facility] During your visit today, we recorded the following information about you: Sharona Bettencourt PA-C 04/17/2024 11:12 AM Signed Patient's glucose is very high at 492. How does she feel. Any confusion, excessive fatigue. Can she check her glucose on the phone? Her A1c is 13.7 and previously 12.9. she told me she is taking her medications and previously told dr. Amaya she was off medications. So as long as she is being honest, her levels have increased despite being on meds. She needs to start seeing endocrinology [place]. Consult placed. In meantime is she willing to start insulin. She also needs to drink plenty of fluids to protect her kidneys. Her liver enzymes are also elevated. Need US and repeat labs fasting. Her calcium is elevated. Again need to repeat. Her cholesterol is elevated. May need to consider med changes in near future SHANTHI Parsons Sherill A, LPN 04/17/2024 11:39 AM Signed Left message for pt to contact office. MEGHANA Raygoza Laurie Lynn, LPN 04/17/2024 12:13 PM Signed Spoke with pt and information listed below given. 1)pt did blood sugar at 12:00 pm it is 525. Pt got new machine. Pt not having any symptoms. Pt had a large breakfast this am cheerios, banana and 2 pcs of toast. 2) pt has been off her 3 meds for 1 week and just started back on them today 04-17-24. 3)pt willing to start on Insulin 4) I did a warm transfer to silver recovery operator to let them know what pt needed. Apts. 5) pt will get in to get fasting blood work done. Not today due to weather. Please advise pt back. MEGHANA Romero Rayanne, PA-C 04/17/2024 12:20 PM Signed The following approved medication requests have been transmitted electronically. Requested Prescriptions Signed Prescriptions Disp Refills insulin glargine (LANTUS SOLOSTAR U-100 INSULIN) 100 unit/mL (3 mL) 1 Each 2 Sig: Inject 10 Units subcutaneously daily at bedtime. Authorizing Provider: SHARONA BETTENCOURT Insulin [place], Disposable, (PEN NEEDLE) 32 gauge x 5/32 100 Each 3 Sig: Inject 1 Each subcutaneously every 24 hours. Give with each insulin administration. Authorizing Provider: SHARONA BETTENCOURT PA-C Allergies As of Date: 04/16/2024 Noted Allergy Reaction CODEINE 10/02/2003 2 - Rash PENICILLINS 10/02/2003 2 - Rash PIOGLITAZONE 07/03/2022 14 - Other: See Comments Comments: Increased leg edema and CHF symptoms PREDNISONE 10/02/2003 2 - Rash ACETAMINOPHEN 10/27/2021 14 - Other: See Comments NIACIN 05/01/2021 16 - Unknown CELEBREX (CELECOXIB) 11/26/2004 16 - Unknown NIACIN 10/02/2003 2 - Rash SULFA (SULFONAMIDE ANTIBIOTICS) 10/02/2003 2 - Rash Date Reviewed: 04/15/2024 Reviewed by: Poonam Roman LPN - Fully Assessed Reason for Visit: Results [95] Primary Visit Diagnosis:Uncontrolled type 2 diabetes mellitus with hyperglycemia (HCC) [E11.65] Other Visit Diagnoses:Elevated alkaline phosphatase level [R74.8] Elevated LFTs [R79.89] Hypercalcemia [E83.52] Order(s):CONSULT TO ENDOCRINOLOGY [9007] Order #: [id number]: 1 FUTURE ALK PHOS ISOENZYM BL [SQALKISO] Order #: [id number] FUTURE HEPATIC FUNCTION PNL [SQHFP] Order #: [id number] FUTURE HEP ACUTE PANEL BL [SQHACUTP] Order #: [id number] FUTURE US ABD RIGHT UPPER QUADRANT [8617025] Order #: [id number] FUTURE CALCIUM, TOTAL [SQCA] Order #: [id number] FUTURE insulin glargine (LANTUS SOLOSTAR U-100 INSULIN) 100 unit/mL (3 mL)Inject 10 Units subcutaneously daily at bedtime.Disp: 1 EachRfl: 2 Insulin [place], Disposable, (PEN NEEDLE) 32 gauge x 5/32Inject 1 Each subcutaneously every 24 hours. Give with each insulin administration.Disp: 100 EachRfl: 3 Prescriptions as of 04/17/2024 - insulin glargine (LANTUS SOLOSTAR U-100 INSULIN) 100 unit/mL (3 mL) Inject 10 Units subcutaneously daily at bedtime. - Insulin [place], Disposable, (PEN NEEDLE) 32 gauge x 5/32 Inject 1 Each subcutaneously every 24 hours. Give with each insulin administration. - SITagliptin phosphate (JANUVIA) 100 mg tablet Take 1 tablet by mouth once daily. - lisinopril (ZESTRIL) 40 mg tablet Take 1 tablet by mouth two times a day. - hydroCHLOROthiazide 25 mg tablet Take 1 tablet by mouth once daily. - furosemide (LASIX) 40 mg tablet Take 1 tablet by mouth as needed. - glimepiride (AMARYL) 2 mg tablet Take 1 tablet by mouth daily with dinner. - carvedilol (COREG) 3.125 mg tablet Take 1 tablet by mouth two times a day with meals. - cefADROxil (DURICEF) 500 mg capsule Take 1 capsule by mouth two times a day for 10 days. - amLODIPine (NORVASC) 5 mg tablet Take 1 tablet by mouth once daily. - metFORMIN (GLUCOPHAGE) 500 mg tablet Take by mouth. take 2 tabs w/breakfast;1 tab with lunch and TWO tabs w/ dinner (more content not included)... Normal [facility] 25(OH)D3 Marvel-glendy 2024 25-hydroxyvitamin D3 [Mass/Vol] 43.6 ng/mL Normal 31.0-80.0 [facility] Comment on above: Order Comment: Speci men Type: BLOOD SPECIMENOrdering Facility: [facility] Address: [address] [place] [address] [place] [address] Result Comment: Clas sification of 25 [place] Vitamin D status: Deficiency/Insufficiency: < or = 30 ng/ml. Sufficiency/Optimal Levels: 31-80 ng/mL Toxicity: > 100 ng/mL. Test performed by chemiluminescent immunoassay. Performed By: #### 1 989-3 ####[facility] LABCLIA [id number] [place] [address] [place] CBC W Auto Differential pane l (Bld)on 04-15-2024 Basophils (Bld) [#/Vol] 0.09 10*3/uL Normal <0.11 [facility] Comment on above: Order Comment: Speci men Type: BLOOD SPECIMENOrdering Facility: [facility] Address: [address] [place] [address] Performed By: #### 5 7021-8 ####[facility] LABIA [id number] [place] [address] [place] Basophils/100 WBC (Bld) 1.2 % Normal [facility] Comment on above: Order Comment: Speci men Type: BLOOD SPECIMENOrdering Facility: [facility] Address: [address] [place] [address] Performed By: #### 5 7021-8 ####[facility] LABIA [id number] [place] [address] [place] Differential cell count method Nom (Bld) Auto Normal [facility] Comment on above: Order Comment: Speci men Type: BLOOD SPECIMENOrdering Facility: [facility] Address: [address] [place] [address] Performed By: #### 5 7021-8 ####[facility] LABIA [id number] [place] [address] [place] Eosinophils (Bld) [#/Vol] 0.13 10*3/uL Normal <0.46 [facility] Comment on above: Order Comment: Speci men Type: BLOOD SPECIMENOrdering Facility: [facility] Address: [address] [place] [address] Performed By: #### 5 7021-8 ####[facility] LABCLIA [id number] [place] [address] [place] Eosinophils/100 WBC (Bld) 1.8 % Normal [facility] Comment on above: Order Comment: Speci men Type: BLOOD SPECIMENOrdering Facility: [facility] Address: [address] [place] [address] Performed By: #### 5 7021-8 ####[facility] LABCLIA [id number] [place] [address] [place] Erythrocyte distribution width (RBC) [Ratio] 13.5 % Normal 11.5-15.0 [facility] Comment on above: Order Comment: Speci men Type: BLOOD SPECIMENOrdering Facility: [facility] Address: [address] [place] [address] Performed By: #### 5 7021-8 ####[facility] LABIA [id number] [place] [address] [place] Hematocrit (Bld) [Volume fraction] 45.4 % Normal 36.0-46.0 [facility] Comment on above: Order Comment: Speci men Type: BLOOD SPECIMENOrdering Facility: [facility] Address: [address] [place] [address] Performed By: #### 5 7021-8 ####[facility] LABCLIA [id number] [place] [address] [place] Hemoglobin (Bld) [Mass/Vol] 15.3 g/dL Normal 11.5-15.5 [facility] Comment on above: Order Comment: Speci men Type: BLOOD SPECIMENOrdering Facility: [facility] Address: [address] [place] [address] Performed By: #### 5 7021-8 ####[facility] LABIA [id number] [id number] [address] [place] Immature granulocytes (Bld) [#/Vol] 10*3/uL Normal <0.10 [facility] Comment on above: Order Comment: Speci men Type: BLOOD SPECIMENOrdering Facility: [facility] Address: [address] [place] [address] Performed By: #### 5 7021-8 ####[facility] LABCLIA [id number] [place] [address] [place] Immature granulocytes/100 WBC (Bld) 0.1 % Normal [facility] Comment on above: Order Comment: Speci men Type: BLOOD SPECIMENOrdering Facility: [facility] Address: [address] [place] [address] Performed By: #### 5 7021-8 ####[facility] LABCLIA [id number] [place] [address] [place] Lymphocytes (Bld) [#/Vol] 2.13 10*3/uL Normal 1.00-4.00 [facility] Comment on above: Order Comment: Speci men Type: BLOOD SPECIMENOrdering Facility: [facility] Address: [address] [place] [address] Performed By: #### 5 7021-8 ####[facility] LABCLIA [id number] [place] [address] [place] Lymphocytes/100 WBC (Bld) 28.9 % Normal [facility] Comment on above: Order Comment: Speci men Type: BLOOD SPECIMENOrdering Facility: [facility] Address: [address] [place] [address] Performed By: #### 5 7021-8 ####[facility] LABCLIA [id number] [place] [address] [place] MCH (RBC) [Entitic mass] 31.8 pg Normal 26.0-34.0 [facility] Comment on above: Order Comment: Speci men Type: BLOOD SPECIMENOrdering Facility: [facility] Address: [address] [place] [address] Performed By: #### 5 7021-8 ####[facility] LABCLIA [id number] [place] [address] [place] MCHC (RBC) [Mass/Vol] 33.7 g/dL Normal 30.5-36.0 [facility] Comment on above: Order Comment: Speci men Type: BLOOD SPECIMENOrdering Facility: [facility] Address: [address] [place] [address] Performed By: #### 5 7021-8 ####[facility] LABCLIA [id number] [place] [address] [place] MCV (RBC) [Entitic vol] 94.4 fL Normal 80.0-100.0 [facility] Comment on above: Order Comment: Speci men Type: BLOOD SPECIMENOrdering Facility: [facility] Address: [address] [place] [address] Performed By: #### 5 7021-8 ####[facility] LABIA [id number] [place] [address] [place] Monocytes (Bld) [#/Vol] 0.51 10*3/uL Normal <0.87 [facility] Comment on above: Order Comment: Speci men Type: BLOOD SPECIMENOrdering Facility: [facility] Address: [address] [place] [address] Performed By: #### 5 7021-8 ####[facility] LABCLIA [id number] [place] [address] [place] Monocytes/100 WBC (Bld) 6.9 % Normal [facility] Comment on above: Order Comment: Speci men Type: BLOOD SPECIMENOrdering Facility: [facility] Address: [address] [place] [address] Performed By: #### 5 7021-8 ####[facility] LABIA [id number] [id number] [address] [place] Neutrophils (Bld) [#/Vol] 4.51 10*3/uL Normal 1.45-7.50 [facility] Comment on above: Order Comment: Speci men Type: BLOOD SPECIMENOrdering Facility: [facility] Address: [address] [place] [address] Performed By: #### 5 7021-8 ####[facility] LABCLIA [id number] [place] [address] [place] Neutrophils/100 WBC (Bld) 61.1 % Normal [facility] Comment on above: Order Comment: Speci men Type: BLOOD SPECIMENOrdering Facility: [facility] Address: [address] [place] [address] Performed By: #### 5 7021-8 ####[facility] LABCLIA [id number] [place] [address] [place] Nucleated RBC (Bld) [#/Vol] 10*3/uL Normal <0.01 [facility] Comment on above: Order Comment: Speci men Type: BLOOD SPECIMENOrdering Facility: [facility] Address: [address] [place] [address] Performed By: #### 5 7021-8 ####[facility] LABCLIA [id number] [place] [address] [place] Nucleated RBC/100 WBC (Bld) [Ratio] 0.0 /100 WBC Normal [facility] Comment on above: Order Comment: Speci men Type: BLOOD SPECIMENOrdering Facility: [facility] Address: [address] [place] [address] Performed By: #### 5 7021-8 ####[facility] LABCLIA [id number] [place] [address] [place] Platelet mean volume (Bld) [Entitic vol] 11.8 fL Normal 9.0-12.7 [facility] Comment on above: Order Comment: Speci men Type: BLOOD SPECIMENOrdering Facility: [facility] Address: [address] [place] [address] Performed By: #### 5 7021-8 ####[facility] LABIA [id number] [place] [address] [place] Platelets (Bld) [#/Vol] 165 10*3/uL Normal 150-400 [facility] Comment on above: Order Comment: Speci men Type: BLOOD SPECIMENOrdering Facility: [facility] Address: [address] [place] [address] Performed By: #### 5 7021-8 ####[facility] LABIA [id number] [place] [address] [place] RBC (Bld) [#/Vol] 4.81 10*6/uL Normal 3.90-5.20 [facility] Comment on above: Order Comment: Speci men Type: BLOOD SPECIMENOrdering Facility: [facility] Address: [address] [place] [address] Performed By: #### 5 7021-8 ####[facility] LABIA [id number] [place] [address] [place] WBC (Bld) [#/Vol] 7.38 10*3/uL Normal 3.70-11.00 [facility] Comment on above: Order Comment: Speci men Type: BLOOD SPECIMENOrdering Facility: [facility] Address: [address] [place] [address] Performed By: #### 5 7021-8 ####[facility] LABIA [id number] [address] [place] CNOVon 04-15-2024 CNOV Office Visit (FAMPWS ) MARIC MARIE ([id number]) 1940 F DEF Date Time Provider Department 04/15/24 11:40 AM SHARONA BETTENCOURT During your visit today, we recorded the following information about you: Temperature Pulse Respiration Blood pressure 97.1 degrees 85/minute 18/minute 166/90 Weight Height 98 kg 1.635 m Sharona Bettencourt PA-C 04/15/2024 2:14 PM Addendum Marci Marie is a 84 year old female here for a Medicare wellness visit. Medicare Health Risk Assessment General Health fair Exercise: Minutes/Day no Exercise: Days/Week - Alcohol: Daily Use no Alcohol: Drinks/Day no Alcohol: 6 or more drinks no Feel off balance no Concerns: Teeth/Dentures no Concerns: Sexual function no Troubled by feelings no Frequency: Eating healthy diet Some days ADLs requiring help no Safety precautions in home/vehicle yes Smoke, vape, chews tobacco no Difficulty hearing yes Difficulty seeing No Current Providers Specialists: I have reviewed specialist-related care of the patient in the medical record. Medical/Family history review Reviewed and updated problem list, medical/surgical/family/soc ial history, medications, and allergies. Opioid use review Opioid Medications (last 90 days) No data to display Anxiety/Depression screening PHQ-2 Score: 0 (Lower risk for depression) Recommendation: no further intervention at this time Cognitive screening Mini Cog Score: 5 Cognitive screening reviewed and No further action needed (score 3-5). Functional Observation Was the patient's Timed Up AND Go test unsteady or >= 12 seconds? No Advance Care Planning Surrogate decision maker and/or advance care plan documented Measurements BP 166/90 (BP Site: Left Arm, BP Position: Sitting, BP Cuff Size: Regular Adult) Pulse 85 Temp 36.2 ?C (97.1 ?F) Resp 18 Ht 163.5 cm (5' 4.37) Wt 98 kg (216 lb) LMP (LMP Unknown) SpO2 99% BMI 36.65 kg/m? Vision Screening: Follows with optometry/ophthalmology Assessment/Plan Medicare annual wellness visit, subsequent (Z00.00) - Counseled on healthy diet and regular exercise - Fall avoidance information provided - Personalized prevention plan provided Chief Complaint Patient presents with: Medicare Wellness Exam HPI Marci Marie is a 84 year old female who presents here today for extensive exam. Patient with hx of DM2, anxiety, hyperlipidemia, HTN, OAB, multiple thyroid nodules, GERD, and those as below. Patient reports painful ingrown toenail. Has appt with podiatry. But not until may. She is on cancellation list. States home BP and sugars have been elevated. Reports she has been consistent with her medications. Last 6 Encounter BP Readings: Date: BP: 04/15/2024 166/90 03/29/2024 154/85 12/21/2023 169/103 11/17/2023 155/76 10/01/2023 104/67[Sunny BP[ 08/29/2023 152/76 Past medical history, appointments, medications, allergies reviewed. Previous Medical History PAST MEDICAL HISTORY Diagnosis Date Acquired deformity of left toe 03/21/2021 second and third digits Adjustment disorder with depressed mood 01/19/2020 Aortic stenosis, mild 12/02/[address] 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 Hiatal hernia History of colon polyps Mixed hyperlipidemia Morbid obesity with BMI of 40.0-44.9, adult (HCC) 06/19/2016 Multiple thyroid nodules 03/24/2021 US 03/2021: Needs yearly f/u for 5 yrs OAB (overactive bladder) 10/10/2022 Osteopenia 04/24/2011; Start vitamin d 1,000/day and RE-CHECK 2013 Personal history of other malignant neoplasm of skin 02/26/2009 Schatzki's ring Sebaceous cyst 07/03/2017 lower anterior neck Skin cancer, basal cell 04/23/2015 nose Stricture and stenosis of esophagus egd/dilatation by Dr. Hollins; Tinnitus of both ears 12/26/2021 Due to hearing loss. 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 Normal [facility] Comprehensive metabolic 2000 panelon 04-15-2024 Albumin [Mass/Vol] 4.3 g/dL Normal 3.9-4.9 [facility] Comment on above: Order Comment: Speci men Type: BLOOD SPECIMENOrdering Facility: [facility] Address: [address] [place] [address] Performed By: #### 3 016-3, LIPNF, 18029-3 ####[facility] LABCLIA [id number] [place] [address] [place] ALP [Catalytic activity/Vol] 309 U/L High 34-123 [facility] Comment on above: Order Comment: Speci men Type: BLOOD SPECIMENOrdering Facility: [facility] Address: [address] [place] [address] Performed By: #### 3 016-3, LIPNF, 28274-3 ####[facility] LABCLIA [id number] [place] [address] [place] ALT [Catalytic activity/Vol] 59 U/L High 7-38 [facility] Comment on above: Order Comment: Speci men Type: BLOOD SPECIMENOrdering Facility: [facility] Address: [address] [place] [address] Performed By: #### 3 016-3, LIPNF, 67049-3 ####[facility] LABCLIA [id number] [place] [address] [place] Anion gap [Moles/Vol] 14 mmol/L Normal 8-15 [facility] Comment on above: Order Comment: Speci men Type: BLOOD SPECIMENOrdering Facility: [facility] Address: [address] [place] [address] Performed By: #### 3 016-3, LIPNF, 26111-4 ####[facility] LABCLIA [id number] [place] [address] [place] AST [Catalytic activity/Vol] 49 U/L High 13-35 [facility] Comment on above: Order Comment: Speci men Type: BLOOD SPECIMENOrdering Facility: [facility] Address: [address] [place] [address] Performed By: #### 3 016-3, LIPNF, 25016-0 ####[facility] LABCLIA [id number] [place] [address] [place] Bilirubin [Mass/Vol] 0.7 mg/dL Normal 0.2-1.3 [facility] Comment on above: Order Comment: Speci men Type: BLOOD SPECIMENOrdering Facility: [facility] Address: [address] [place] [address] Performed By: #### 3 016-3, LIPNF, 19494-9 ####[facility] LABCLIA [id number] [place] [address] [place] Calcium [Mass/Vol] 10.6 mg/dL High 8.5-10.2 [facility] Comment on above: Order Comment: Speci men Type: BLOOD SPECIMENOrdering Facility: [facility] Address: [address] [place] [address] Performed By: #### 3 016-3, LIPNF, 95244-6 ####[facility] LABCLIA [id number] [place] [address] [place] Chloride [Moles/Vol] 96 mmol/L Low 98-107 [facility] Comment on above: Order Comment: Speci men Type: BLOOD SPECIMENOrdering Facility: [facility] Address: [address] [place] [address] Performed By: #### 3 016-3, WILNER, 92719-6 ####[facility] LABCLIA [id number] [place] [address] [place] CO2 [Moles/Vol] 23 mmol/L Normal 22-30 [facility] Comment on above: Order Comment: Speci men Type: BLOOD SPECIMENOrdering Facility: [facility] Address: [address] [place] [address] Performed By: #### 3 016-3, WILNER, 53101-5 ####[facility] LABIA [id number] [place] [address] [place] Creatinine [Mass/Vol] 0.65 mg/dL Normal 0.58-0.96 [facility] Comment on above: Order Comment: Speci men Type: BLOOD SPECIMENOrdering Facility: [facility] Address: [address] [place] [address] Performed By: #### 3 016-3, WILNER, 42335-6 ####[facility] LABIA [id number] [place] [address] [place] Creatinine and Glomerular filtration rate.predicted panel (S/P/Bld) 88 mL/min/1.73m??? Normal >=60 [facility] Comment on above: Order Comment: Speci men Type: BLOOD SPECIMENOrdering Facility: [facility] Address: [address] [place] [address] Result Comment: Malka mated Glomerular Filtration Rate (eGFR) is calculated using the 2020 CKD-EPI creatinine equation. This equation utilizes serum creatinine, sex, and age as parameters. The creatinine assay has traceable calibration to isotope dilution-mass spectrometry. Refer to KDIGO guidelines for clinical interpretation. In patients with unstable renal function, e.g. those with acute kidney injury, the eGFR may not accurately reflect actual GFR. Performed By: #### 3 016-3, LIPNF, 36875-9 ####[facility] LABCLIA [id number] [place] [address] [place] Glucose [Mass/Vol] 492 mg/dL High 74-99 [facility] Comment on above: Order Comment: Speci men Type: BLOOD SPECIMENOrdering Facility: [facility] Address: [address] [place] [address] Result Comment: The Indian Diabetes Association (ADA) provides guidance for cutoff values for fasting glucose and random glucose. The ADA defines fasting as no caloric intake for at least 8 hours. Fasting plasma glucose results between 100 to 125 mg/dL indicate increased risk for diabetes (prediabetes). Fasting plasma glucose results greater than or equal to 126 mg/dL meet the criteria for diagnosis of diabetes. In the absence of unequivocal hyperglycemia, results should be confirmed by repeat testing. In a patient with classic symptoms of hyperglycemia or hyperglycemic crisis, random plasma glucose results greater than or equal to 200 mg/dL meet the criteria for diagnosis of diabetes. Reference: Standards of Medical Care in Diabetes 2016, Indian Diabetes Association. Diabetes Care. 2016.39(Suppl 1). Performed By: #### 3 016-3, LIPNF, 27139-7 ####[facility] LABIA [id number] [place] [address] [place] Potassium [Moles/Vol] 4.4 mmol/L Normal 3.7-5.1 [facility] Comment on above: Order Comment: Speci men Type: BLOOD SPECIMENOrdering Facility: [facility] Address: [address] [place] [address] Performed By: #### 3 016-3, LIPNF, 09492-1 ####[facility] LABIA [id number] [place] [address] [place] Protein [Mass/Vol] 7.2 g/dL Normal 6.3-8.0 [facility] Comment on above: Order Comment: Speci men Type: BLOOD SPECIMENOrdering Facility: [facility] Address: [address] [place] [address] Performed By: #### 3 016-3, LIPNF, 06954-0 ####[facility] LABCLIA [id number] [place] [id number] [place] Sodium [Moles/Vol] 133 mmol/L Low 136-144 [facility] Comment on above: Order Comment: Speci men Type: BLOOD SPECIMENOrdering Facility: [facility] Address: [address] [place] [address] Performed By: #### 3 016-3, LIPNF, 40322-7 ####[facility] LABIA [id number] [place] [address] [place] Urea nitrogen [Mass/Vol] 26 mg/dL High 7-21 [facility] Comment on above: Order Comment: Speci men Type: BLOOD SPECIMENOrdering Facility: [facility] Address: [address] [place] [address] Performed By: #### 3 016-3, LIPNF, 45647-1 ####[facility] LABIA [id number] [place] [address] [place] HbA1c (Bld)on 04-15-2024 Average glucose Estimated from glycated hemoglobin (Bld) [Mass/Vol] 346 mg/dL Normal [facility] Comment on above: Order Comment: Speci men Type: BLOOD SPECIMENOrdering Facility: [facility] Address: [address] [place] [address] Result Comment: eAG: (Estimated average glucose) is a calculated value from HgbA1c and is ambulatory services representative of the average blood glucose level in the last 2-3 month period. Performed By: #### 5 5454-3 ####[facility] [id number] [place] [address] [place] HbA1c (Bld) [Mass fraction] 13.7 % High 4.3-5.6 [facility] Comment on above: Order Comment: Speci men Type: BLOOD SPECIMENOrdering Facility: [facility] Address: [address] [place] [address] Result Comment: Amer ican Diabetes Association guidelines indicate that patients with HgbA1c in the range 5.7-6.4% are at increased risk for development of diabetes, and intervention by lifestyle modification may be beneficial. HgbA1c greater or equal to 6.5% is considered diagnostic of diabetes. Performed By: #### 5 5454-3 ####[facility] LABCLIA [id number] [place] [address] [place] LIPID PANEL, NONFASTINGon Cholesterol [Mass/Vol] 220 mg/dL High <200 [facility] Comment on above: Order Comment: Noemi fernandes Type: BLOOD SPECIMENOrdering Facility: [facility] Address: [address] [place] [address] Result Comment: <200 mg/dL, Desirable 200-239 mg/dL, Borderline high >239 mg/dL, High Performed By: #### 3 016-3, LIPPOLINA, 08104-6 ####[facility] LABCLIA [id number] [place] [address] [place] HDL CHOLESTEROL, NF 91 mg/dL Normal >39 [facility] Comment on above: Order Comment: Noemi fernandes Type: BLOOD SPECIMENOrdering Facility: [facility] Address: [address] [place] [address] Result Comment: 40-5 9 mg/dL, Acceptable >59 mg/dL, High: Negative risk factor for coronary heart disease <40 mg/dL, Low: Positive risk factor for coronary heart disease Performed By: #### 3 016-3, LIPPOLINA, 11560-7 ####[facility] LABCLIA [id number] [place] [address] [place] LDL CHOLESTEROL, NF 106 mg/dL High <100 [facility] Comment on above: Order Comment: Noemi fernandes Type: BLOOD SPECIMENOrdering Facility: [facility] Address: [address] [place] [address] Result Comment: <100 mg/dL, Optimal 100-129 mg/dL, Near optimal/above optimal 130-159 mg/dL, Borderline high 160-189 mg/dL, High >189 mg/dL, Very high Secondary prevention optimal LDL Cholesterol levels are recommended to be < 70 mg/dL Performed By: #### 3 016-3, LIPNF, 78894-9 ####[facility] LABCLIA [id number] [place] [address] [place] LDL/HDL RATIO, NF 1.16 mg/dL Normal <2.54 [facility] Comment on above: Order Comment: Speci men Type: BLOOD SPECIMENOrdering Facility: [facility] Address: [address] [place] [address] Result Comment: Refe otto: 1. National Cholesterol Education Program ATP III Guideline At-A-Glance Quick Desk Reference: National Heart, Lung, and Blood Mcdougal. National Institutes of Health. 2001: NIH Publication No. 01-3305. 2. An International Atherosclerosis Society position paper: global recommendations for the management of dyslipidemia: executive summary, Atherosclerosis. 2014: 232(2):410-413. Performed By: #### 3 016-3, LIPNF, 03787-5 ####[facility] LABCLIA [id number] [address] [place] NON HDL CHOL, NF 129 mg/dL Normal <130 [facility] Comment on above: Order Comment: Noemi fernandes Type: BLOOD SPECIMENOrdering Facility: [facility] Address: [address] [place] [address] Result Comment: <130 mg/dL, Optimal 130-159 mg/dL, Near optimal/above optimal 160-189 mg/dL, Borderline high 190-219 mg/dL, High >219 mg/dL, Very high Secondary prevention optimal non HDL Cholesterol levels are recommended to be <100 mg/dL Performed By: #### 3 016-3, LIPNF, 81380-8 ####[facility] LABCLIA [id number] [place] [address] [place] T CHOL/HDL RATIO NF 2.42 mg/dL Normal <5.10 [facility] Comment on above: Order Comment: Speci men Type: BLOOD SPECIMENOrdering Facility: [facility] Address: [address] [place] [address] Performed By: #### 3 016-3, LIPNF, 70048-0 ####[facility] LABCLIA [id number] [place] [address] [place] TRIGLYCERIDES, NF 117 mg/dL Normal <150 [facility] Comment on above: Order Comment: Speci men Type: BLOOD SPECIMENOrdering Facility: [facility] Address: [address] [place] [address] Result Comment: <150 mg/dL, Normal 150-199 mg/dL, Borderline high 200-499 mg/dL, High >499 mg/dL, Very high Performed By: #### 3 016-3, LIPNF, 12164-3 ####[facility] LABCLIA [id number] [place] [address] [place] VLDL CHOLESTEROL, NF 23 mg/dL Normal <30 [facility] Comment on above: Order Comment: Speci men Type: BLOOD SPECIMENOrdering Facility: [facility] Address: [address] [place] [address] Performed By: #### 3 016-3, LIPNF, 46243-0 ####[facility] LABCLIA [id number] [place] [address] [place] TSH SerPl-aCncon 04-15-2024 TSH Qn 1.740 m[IU]/L Normal 0.270-4.20 0 [facility] Comment on above: Order Comment: Speci men Type: BLOOD SPECIMENOrdering Facility: [facility] Address: [address] [place] [address] Performed By: #### 3 016-3, LIPNF, 23606-2 ####[facility] LABCLIA [id number] [place] [address] [place] Parth 03-31-2024 CNPN Telephone (UCWSTR) FRANKMARCI MOSHER ([id number]) 1940 F [birth year] Date Time Provider Department 03/31/24 ELIZABETH YAÑEZ During your visit today, we recorded the following information about you: Mitzi Dickson MA 03/31/2024 7:40 AM Signed ----- Message from Elizabeth Yañez APRN.RITA sent at 03/31/2024 7:32 AM EST ----- Please advise patient: Urine culture did not show clear evidence of infection, however it appears sample may have been contaminated with skin bacteria during collection. -Test for yeast was positive, she was prescribed diflucan at visit and should take this medication as prescribed. If not improving, recommend follow up with PCP. RITA Sharif Melissa, MA 03/31/2024 7:44 AM Signed Left message for patient to return call. MADELYN Son Stephanie, RN 03/31/2024 1:12 PM Signed Patient notified of results and provider's instructions. Patient verbalizes understanding. Nikki Patino RN Allergies As of Date: 03/31/2024 Noted Allergy Reaction CODEINE 10/02/2003 2 - Rash PENICILLINS 10/02/2003 2 - Rash PIOGLITAZONE 07/03/2022 14 - Other: See Comments Comments: Increased leg edema and CHF symptoms PREDNISONE 10/02/2003 2 - Rash ACETAMINOPHEN 10/27/2021 14 - Other: See Comments NIACIN 05/01/2021 16 - Unknown CELEBREX (CELECOXIB) 11/26/2004 16 - Unknown NIACIN 10/02/2003 2 - Rash SULFA (SULFONAMIDE ANTIBIOTICS) 10/02/2003 2 - Rash Date Reviewed: 03/29/2024 Reviewed by: Xiao Ramos LPN - Fully Assessed Reason for Visit: Results [95] Prescriptions as of 03/31/2024 - glimepiride (AMARYL) 2 mg tablet Take 1 tablet by mouth daily with dinner. - metFORMIN (GLUCOPHAGE) 500 mg tablet Take by mouth. take 2 tabs w/breakfast;1 tab with lunch and TWO tabs w/ dinner - amLODIPine (NORVASC) 2.5 mg tablet Take 1 tablet by mouth once daily. - furosemide (LASIX) 40 mg tablet Take 1 tablet by mouth as needed. - hydroCHLOROthiazide 25 mg tablet Take 1 tablet by mouth once daily. - lisinopril (ZESTRIL) 40 mg tablet Take 1 tablet by mouth two times a day. - nitroglycerin sublingual (NITROQUICK) 0.4 mg SL tablet Dissolve 1 tablet under the tongue as needed. FOR CHEST PAIN. IF NO RELIEF CALL 911 - carvedilol (COREG) 3.125 mg tablet Take 1 tablet by mouth two times a day with meals. - SITagliptin phosphate (JANUVIA) 100 mg tablet Take 1 tablet by mouth once daily. - Blood-Glucose Meter,Continuous (FREESTYLE KIRK 3 READER) [facility] Check blood sugars 3-4 times a day Dx: E11.65 no insulin - Blood-Glucose Sensor (FREESTYLE KIRK 3 SENSOR) em Apply a new sensor once every 2 weeks. Check blood sugars 3-4 times a day Dx: E11.65 no insulin - oxybutynin (DITROPAN) 5 mg tablet Take 0.5 tablets by mouth twice daily. - Cholecalciferol, Vitamin D3, 2,000 unit cap Take 3 capsules by mouth once daily. Problem List As Of Date 03/31/2024 Noted Resolved Diaphragmatic hernia without mention of obstruc* Herpes zoster [B02.9] Stricture and Stenosis of Esophagus [K22.2] Mixed Hyperlipidemia [E78.2] 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*07/01/2007 Actinic Keratosis [L57.0] 02/26/2009 06/28/2009 Other Seborrheic Keratosis [L82.1] 02/26/2009 06/28/2009 Sun-Damaged Skin [L57.8] 02/26/2009 06/28/2009 Solar Lentigo [L81.4] 02/26/2009 06/28/2009 Scar Condition and Fibrosis of Skin [L90.5] 02/26/2009 06/28/2009 Personal history of other malignant neoplasm of*02/26/2009 Capillary Angioma [I78.1] 02/26/2009 06/28/2009 Xerosis Cutis [L85.3] 02/26/2009 06/28/2009 Venous Stasis [I87.8] 02/26/2009 06/28/2009 Osteopenia [M85.80] 04/24/2011 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)*07/07/2013 Essential hypertension [I10] 07/13/2014 Routine gynecological examination [Z01.419] 07/21/2014 Gastroesophageal reflux disease with esophagiti*04/23/2015 Skin cancer, basal cell [C44.91] 04/23/2015 Bilateral leg edema [R60.0] 05/31/2015 Vitamin D deficiency [E55.9] 11/26/2015 Aortic stenosis, mild [I35.0] 12/02/2015 Venous (peripheral) insufficiency [I87.2] 12/21/2015 Morbid obesity with BMI of 40.0-44.9, adult (HC*06/19/2016 08/20/2023 Diabetic eye exam (HCC) [Z01.00, E11.9] 08/21/2016 Corns and callus [L84] 09/18/2016 Screening for colon cancer [Z12.11] 07/03/2017 Sebaceous cyst [L72.3] 07/03/2017 Elevated serum GGT level [R74.8] 07/03/2017 Microscopic hematuria [R31.29] 08/28/2018 Elevated alkaline phosphatase level [R74.8] 08/28/2018 Uncontrolled type 2 diabetes mellitus with hype*01/02/2020 Adjustment disorder with depressed mood [F43.21]01/19/2020 SAMEER (generalized anxiety disorder) [F41.1] 01/19/2020 Medicare annual wellness visit, subsequent [Z00*03/21/2021 Foot callus [L84] 03/21/2021 Acquired deformity of left toe [M20.62] 03/21/2021 Multiple thyroid nodules [E04.2] 03/24/2021 Tinnitus of both ears [H93.13] more content not included)... Normal [facility] Interpretation and review of laboratory results Normal [facility] Lactobacillus crispatus+gasseri+dale enii + Gardnerella vaginalis + Atopobium vaginae rRNA MERCEDES+probe Ql (Vag fld) Not detected Not detected [facility] Lactobacillus crispatus+gasseri+dale enii + Gardnerella vaginalis + Atopobium vaginae rRNA MERCEDES+probe Ql (Vag fld) Not detected Normal Not detected [facility] Comment on above: Order Comment: Speci men Type: SWABOrdering Facility: [facility] Address: [address] [place] [address] Performed By: #### B VAMP, CVTV ####[facility] LABCLIA [id number] [place] [address] [place] Bacteria Ur Culton Bacteria identified Cx Nom (U) ORGANISM ID: 1 10,000 -<50,000 CFU/ml Mixed microbiota No further workup. Mixed microbiota can be due to???urine???contamination with skin bacteria at time of collection or presence of a long-term urinary catheter. If a new culture is needed, please consider re-education of the patient on proper midstream collection technique or straight catheterization for???urine???collection. Normal [facility] Comment on above: Performed By: #### 6 30-4 ####[facility] LABCLIA [id number] [place] [address] [place] DAVID/TRICHOMONAS NAATon 1 05-30-2023 C. glabrata RNA MERCEDES+probe Ql (Vag fld) Not detected Not detected [facility] David sp DNA MERCEDES+probe Ql (Vag fld) Detected Abnormal Not detected [facility] Comment on above: The David species group target includes C. albicans, C. tropicalis, C. parapsilosis, and C. dubliniensis. Interpretation and review of laboratory results Abnormal [facility] T. vaginalis DNA MERCEDES+probe Ql (Unsp spec) Not detected Not detected [facility] C. glabrata RNA MERCEDES+probe Ql (Vag fld) Not detected Normal Not detected [facility] Comment on above: Order Comment: Speci men Type: SWABOrdering Facility: [facility] Address: [address] [place] [address] Performed By: #### B VAMP, CVTV ####[facility] LABCLIA [id number] [place] [address] [place] David sp DNA MERCEDES+probe Ql (Vag fld) Detected Abnormal Not detected [facility] Comment on above: Order Comment: Speci men Type: SWABOrdering Facility: [facility] Address: [address] [place] [address] Result Comment: The David species group target includes C. albicans, C. tropicalis, C. parapsilosis, and C. dubliniensis. Performed By: #### B VAMP, CVTV ####[facility] LABCLIA [id number] [place] [address] [place] T. vaginalis DNA MERCEDES+probe Ql (Unsp spec) Not detected Normal Not detected [facility] Comment on above: Order Comment: Speci men Type: SWABOrdering Facility: [facility] Address: [address] [place] [address] Performed By: #### B VAMP, CVTV ####[facility] LABIA [id number] [place] [address] [place] CNOVon 03-29-2024 CNOV Office Visit (UCWSTR ) MARCI MARIE ([id number]) 1940 F DEF Date Time Provider Department 03/29/24 2:45 PM KIM ROB [facility] During your visit today, we recorded the following information about you: Temperature Pulse Respiration Blood pressure 97.4 degrees 85/minute 24/minute 154/85 Weight 99 kg Kim Rob PA-C 03/30/2024 8:51 AM Signed This note was created using [employer]. Subjective Marci Marie is a 84 year old female. Patient is an 84-year-old female who complains of thick vaginal discharge that she has been experiencing for the past several days. Patient also reports vaginal itching. Patient denies dysuria or hematuria as well as abnormal vaginal bleeding. Patient states that she does have a history of urinary incontinence which is unchanged. Patient is diabetic and reports that she frequently develops vaginal yeast infections and that her current symptoms are consistent with same. Patient reports that she has not completed recent antibiotic therapy. Vaginal Problem Review of Systems Genitourinary: Positive for vaginal discharge. All other systems reviewed and are negative. Objective BP 154/85 Pulse 85 Temp 36.3 ?C (97.4 ?F) Resp 24 Wt 99 kg (218 lb 4.1 oz) LMP (LMP Unknown) SpO2 96% BMI 35.23 kg/m? Physical Exam Vitals and nursing note reviewed. Constitutional: Appearance: Normal appearance. She is normal weight. HENT: Head: Normocephalic and atraumatic. Right Ear: External ear normal. Left Ear: External ear normal. Nose: Nose normal. Mouth/Throat: Mouth: Mucous membranes are moist. Pharynx: Oropharynx is clear. Eyes: Extraocular Movements: Extraocular movements intact. Conjunctiva/sclera: Conjunctivae normal. Pupils: Pupils are equal, round, and reactive to light. Cardiovascular: Rate and Rhythm: Normal rate. Pulses: Normal pulses. Heart sounds: Normal heart sounds. Pulmonary: Effort: Pulmonary effort is normal. Breath sounds: Normal breath sounds. Abdominal: General: Abdomen is flat. Palpations: Abdomen is soft. Musculoskeletal: Cervical back: Normal range of motion and neck supple. Skin: General: Skin is warm and dry. Capillary Refill: Capillary refill takes less than 2 seconds. Neurological: General: No focal deficit present. Mental Status: She is alert and oriented to person, place, and time. Psychiatric: Mood and Affect: Mood normal. Behavior: Behavior normal. Thought Content: Thought content normal. Judgment: Judgment normal. Assessment and Plan Physical exam findings as noted above. Patient did perform a self swab and BV/David NAAT was ordered. Urinalysis is negative for leukocyte esterase and trace blood is noted. Patient was informed of glucose and ketones that were noted on urinalysis. Given the patient's history and clinical presentation, she was provided with a prescription for Diflucan 150 mg. Patient reports that she has not previously been evaluated by urologist for her chronic enuresis and she is requesting a referral for same. Consult order was placed with [facility] Urology patient will be scheduled for an appointment for same. Additional supportive care was discussed with the patient and she expresses good understanding of same. CLINICAL IMPRESSION: Vaginal Candidiasis; Chronic Urinary Incontinence ASSESSMENT/PLAN: 1. Urgency incontinence - ICD9: 788.31, ICD10: N39.41 (primary diagnosis) - UA DIP, URINE (POC) - URINE CULTURE - CONSULT TO UROLOGY 2. Vaginal candidiasis - ICD9: 112.1, ICD10: B37.31 - FLUCONAZOLE 150 MG TABLET - BACTERIAL VAGINOSIS NAAT - DAVID/TRICHOMONAS NAAT 3. Urethral irritation - ICD9: 599.9, ICD10: N36.8 Kim Rob PA-C Allergies As of Date: 03/29/2024 Noted Allergy Reaction CODEINE 10/02/2003 2 - Rash PENICILLINS 10/02/2003 2 - Rash PIOGLITAZONE 07/03/2022 14 - Other: See Comments Comments: Increased leg edema and CHF symptoms PREDNISONE 10/02/2003 2 - Rash ACETAMINOPHEN 10/27/2021 14 - Other: See Comments NIACIN 05/01/2021 16 - Unknown CELEBREX (CELECOXIB) 11/26/2004 16 - Unknown NIACIN 10/02/2003 2 - Rash SULFA (SULFONAMIDE ANTIBIOTICS) 10/02/2003 2 - Rash Date Reviewed: 03/29/2024 Reviewed by: Xiao Ramos LPN - Fully Assessed Reason for Visit: Vaginal Problem [117] Cmt: Redness,discharge, itchy, x 1 week Frequency with urination, urgency x 1 week Incontinent Primary Visit Diagnosis:Urgency incontinence [N39.41] Other Visit Diagnoses:Vaginal candidiasis [B37.31] Urethral irritation [N36.8] Order(s):UA DIP, URINE (POC) [9947284] Order #: [id number]. #:[id number] -LAB URINE CULTURE [SQURCUL] Order #: [id number]. #:[id number] [] fluconazole (DIFLUCAN) 150 mg tabletTake 1 tablet by mouth one time only for 1 dose. Repeat in 3 days as needed.Disp: 2 tabletRfl: 0 CONSULT TO UROLOGY [4241] (more content not included)... Normal [facility] UA DIP, URINE (POC)on 2023 BILIRUBIN UA (POCT) Negative Negative [facility] CLARITY UA (POCT) Clear [facility] COLOR UA (POCT) Yellow [facility] GLUCOSE UA (POCT) >=1000 Abnormal Negative mg/dL [facility] Hemoglobin Ql (U) Negative Negative [facility] Interpretation and review of laboratory results Abnormal [facility] KETONE UA (POCT) 80 mg/dL Abnormal Negative [facility] LEUKOCYTES UA (POCT) Negative Negative [facility] NITRITE UA (POCT) Negative Negative [facility] PH UA (POCT) 5.5 4.5 - 8.0 [facility] Protein Ql (U) Trace Abnormal Negative mg/dL [facility] SPECIFIC GRAVITY UA (POCT) 1.020 1.005 - 1.030 [facility] UROBILINOGEN UA (POCT) 0.2 Brenna l E.U./dL [facility] Location:[facility] [address] [place] [address], [id number] [place] [address] POINT OF CARE [facility] 12 Lead EKGon 01-15-2024 12 Lead EKG [facility] Cardiovascular Services [address] [place] [address] 12 Lead EKG 01/15/24 1907 MR#: [id number] Acct: [id number] Name: MARCI MARIE Rep #: [id number] : 1940 83 From: Praveen Sepulveda MD Attending Dr: Status: DEP ER Ordering Dr: Evon Wilson DO Date: 01/15/24 Location: ED Sex: F C Admitted: Test Reason : CP Blood Pressure : / mmHG Vent. Rate : 080 BPM Atrial Rate : 080 BPM P-R Int : 170 ms QRS Dur : 086 ms QT Int : 384 ms P-R-T Axes : 057 012 039 degrees QTc Int : 442 ms Normal sinus rhythm Normal ECG Confirmed by Praveen Sepulveda ([id number]), design editor SUZANNA LANCE ([id number]) on 01/16/2024 9:34:30 AM Referred By: RU Confirmed By:Praveen Sepulveda 01/16/24 0934 Date Praveen Sepulveda MD CC: Dr. Arturo Amaya MD; Dr. Evon Wilson DO Signed Normal [facility] Basic Metabolic Profile (BMP )on 01-15-2024 BUN/CRE 23.8 RATIO High - [facility] Comment on above: Order Comment: 1Y Performed By: #### L 501.5425, L100.0100, L300.8000, L500.2500 ####[facility] [address] [place], [address] CA,Total 9.8 mg/dL Normal 8.5-10.1 [facility] Comment on above: Order Comment: 1Y Performed By: #### L 501.5425, L100.0100, L300.8000, L500.2500 ####[facility] [address] [place], [address] Chloride [Moles/Vol] 106 mmol/L Normal 98-107 [facility] Comment on above: Order Comment: 1Y Performed By: #### L 501.5425, L100.0100, L300.8000, L500.2500 ####[facility] [address] [place], [address] CO2 [Moles/Vol] 29.0 mmol/L Normal 21.0-32.0 [facility] Comment on above: Order Comment: 1Y Performed By: #### L 501.5425, L100.0100, L300.8000, L500.2500 ####[facility] [address] [place], [address] Creatinine [Mass/Vol] 0.80 mg/dL Normal 0.55-1.02 [facility] Comment on above: Order Comment: 1Y Result Comment: The validity of the calculated GFR GFRAA in patients over 70 years has not been determined. Clinical correlation is essential. Performed By: #### L 501.5425, L100.0100, L300.8000, L500.2500 ####[facility] [address] [place], [address] ECRCL 68.42 ml/min Normal [facility] Comment on above: Order Comment: 1Y Performed By: #### L 501.5425, L100.0100, L300.8000, L500.2500 ####[facility] [address] [place], [address] EST GFR - AA 89 mL/min Normal >60 [facility] Comment on above: Order Comment: 1Y Result Comment: Afri can Indian GFR Calc Performed By: #### L 501.5425, L100.0100, L300.8000, L500.2500 ####[facility] [address] [place], [address] GAP 6 Normal 5-15 [facility] Comment on above: Order Comment: 1Y Performed By: #### L 501.5425, L100.0100, L300.8000, L500.2500 ####[facility] [address] [place], [address] GFR/1.73 sq M.predicted among non-blacks MDRD (S/P/Bld) [Vol rate/Area] 73 mL/min/{1.73_m2} Normal >60 [facility] Comment on above: Order Comment: 1Y Result Comment: Non- GFR Calc Performed By: #### L 501.5425, L100.0100, L300.8000, L500.2500 ####[facility] [address] [place], [address] Glucose [Mass/Vol] 186 mg/dL High 74-106 [facility] Comment on above: Order Comment: 1Y Result Comment: Fast ing Glucose result greater than or equal to 126 mg/dL suggests DIABETES MELLITUS per A.D.A. criteria. Performed By: #### L 501.5425, L100.0100, L300.8000, L500.2500 ####[facility] [address] [place], [address] Potassium [Moles/Vol] 4.0 mmol/L Normal 3.5-5.1 [facility] Comment on above: Order Comment: 1Y Performed By: #### L 501.5425, L100.0100, L300.8000, L500.2500 ####[facility] [address] [place], [address] Sodium [Moles/Vol] 140 mmol/L Normal 136-145 [facility] Comment on above: Order Comment: 1Y Performed By: #### L 501.5425, L100.0100, L300.8000, L500.2500 ####[facility] [address] [place], [address] Urea nitrogen [Mass/Vol] 19 mg/dL High 7-18 [facility] Comment on above: Order Comment: 1Y Performed By: #### L 501.5425, L100.0100, L300.8000, L500.2500 ####[facility] [address] [place], [address] CBC W/Diff, Automatedon 10- Absolute Lymph 1.66 X10 3/uL Normal 0.83-4.51 [facility] Comment on above: Performed By: #### L 501.5425, L100.0100, L300.8000, L500.2500 ####[facility] [address] [place], [address] Absolute Neut 4.0 X10 3/uL Normal 2.0-7.7 [facility] Comment on above: Performed By: #### L 501.5425, L100.0100, L300.8000, L500.2500 ####[facility] [address] [place], [address] Basophils/100 WBC (Bld) 1.2 % High 0-1 [facility] Comment on above: Performed By: #### L 501.5425, L100.0100, L300.8000, L500.2500 ####[facility] [address] [place], [address] Eosinophils/100 WBC (Bld) 3.5 % Normal 0-5 [facility] Comment on above: Performed By: #### L 501.5425, L100.0100, L300.8000, L500.2500 ####[facility] [address] [place], [address] Erythrocyte distribution width (RBC) [Ratio] 13.4 % Normal 11.6-14.6 [facility] Comment on above: Performed By: #### L 501.5425, L100.0100, L300.8000, L500.2500 ####[facility] [address] [place], [address] Hematocrit (Bld) [Volume fraction] 42.6 % Normal 37-47 [facility] Comment on above: Performed By: #### L 501.5425, L100.0100, L300.8000, L500.2500 ####[facility] [address] [place], [address] Hemoglobin (Bld) [Mass/Vol] 14.1 g/dL Normal 12.0-15.0 [facility] Comment on above: Performed By: #### L 501.5425, L100.0100, L300.8000, L500.2500 ####[facility] [address] [place], [address] IG% 0.200 Normal 0.0-0.9 [facility] Comment on above: Result Comment: IG% - Immature Granulocytes (promyelocytes, myelocytes and metamyelocytes) > 1% indicates that a LEFT SHIFT is Present. Performed By: #### L 501.5425, L100.0100, L300.8000, L500.2500 ####[facility] [address] [place], [address] Lymphocytes/100 WBC (Bld) 25.4 % Normal 19-41 [facility] Comment on above: Performed By: #### L 501.5425, L100.0100, L300.8000, L500.2500 ####[facility] [address] [place], [address] MCH (RBC) [Entitic mass] 31.7 pg Normal 27.0-32.0 [facility] Comment on above: Performed By: #### L 501.5425, L100.0100, L300.8000, L500.2500 ####[facility] [address] [place], [address] MCHC (RBC) [Mass/Vol] 33.1 g/dL Normal 32-36 [facility] Comment on above: Performed By: #### L 501.5425, L100.0100, L300.8000, L500.2500 ####[facility] [address] [place], [address] MCV (RBC) [Entitic vol] 95.7 fL Normal 81-99 [facility] Comment on above: Performed By: #### L 501.5425, L100.0100, L300.8000, L500.2500 ####[facility] [address] [place], [address] Monocytes/100 WBC (Bld) 8.9 % Normal 0-10 [facility] Comment on above: Performed By: #### L 501.5425, L100.0100, L300.8000, L500.2500 ####[facility] [address] [place], [address] Neutrophils/100 WBC (Bld) 60.8 % Normal 47-70 [facility] Comment on above: Performed By: #### L 501.5425, L100.0100, L300.8000, L500.2500 ####[facility] [address] [place], [address] Nucleated RBC (Bld) [#/Vol] 0 10*3/uL Normal 0-5 [facility] Comment on above: Performed By: #### L 501.5425, L100.0100, L300.8000, L500.2500 ####[facility] [address] [place], [address] Platelet mean volume (Bld) [Entitic vol] 11.1 fL Normal 6.2-12.0 [facility] Comment on above: Performed By: #### L 501.5425, L100.0100, L300.8000, L500.2500 ####[facility] [address] [place], [address] Platelets (Bld) [#/Vol] 160 10*3/uL Normal 150-450 [facility] Comment on above: Performed By: #### L 501.5425, L100.0100, L300.8000, L500.2500 ####[facility] [address] [place], [address] RBC (Bld) [#/Vol] 4.45 10*6/uL Normal 4.2-5.4 [facility] Comment on above: Performed By: #### L 501.5425, L100.0100, L300.8000, L500.2500 ####[facility] [address] [place], [address] RDW SD 47.3 fl High 35.1-43.9 [facility] Comment on above: Performed By: #### L 501.5425, L100.0100, L300.8000, L500.2500 ####[facility] [address] [place], [address] WBC (Bld) [#/Vol] 6.5 10*3/uL Normal 4.4-11.0 [facility] Comment on above: Performed By: #### L 501.5425, L100.0100, L300.8000, L500.2500 ####[facility] [address] [place], [address] CTA Chest W/WO Contraston CTA Chest W/WO Contrast [facility] Imaging Services [address] [place] [address] CTA Chest W/WO Contrast MR#: [id number] Acct: [id number] Name: MARCI MARIE Rep #: [id number] : 1940 F 83 From: Carl Womack MD PCP: Dr. Arturo Amaya MD Status: [facility] ER Study: CTA Chest W/WO Contrast Date of Exam: 01/15/24 Exam# [id number] Ordering Dr: Evon Wilson DO [id number] STUDY: CTA CHEST REASON FOR EXAM: Female, 83 years old. Chest pain, elevated d-dimer RADIATION DOSAGE (If Supplied By Facility): CTDIvol = ( 12.23 ) mGy, DLP = ( 444.13 ) mGycm TECHNIQUE: The examination was performed with the intravenous administration of 100mL Isovue-370. Post-processing of the angiographic images was performed, with multiplanar reformation and 3D reconstruction. Individualized dose optimization techniques were used for this CT. COMPARISON: None. FINDINGS: Normal enhancement of the main pulmonary artery and right and left pulmonary arteries. Normal enhancement of the bilateral peripheral pulmonary arteries. There is no demonstrated pulmonary embolism. Normal thoracic aorta and visualized great vessels. There is no demonstrated aortic dissection. Normal heart and pericardium. Normal mediastinum. Normal hilar regions. Small hiatal hernia. There are no pulmonary infiltrates. There are no pleural effusions. Normal chest wall structures. No acute or aggressive osseous abnormality. No acute findings in the upper abdomen. CT/CTA Chest W/WO Contrast IMPRESSION: Normal CTA chest examination, without a demonstrated pulmonary embolism or arterial dissection.. Electronically Signed: Carl Womack MD at 21:49 EDT , CC: Dr. Arturo Amaya MD; Dr. Evon Wilson DO Charging Plug Placer: Signed Normal [facility] Chest 1 View (Portable)on Chest 1 View (Portable) [facility] Imaging Services [address] [place] [address] Chest 1 View (Portable) MR#: [id number] Acct: [id number] Name: MARCI MARIE Rep #: [id number] : 1940 F 83 From: Carl Womack MD PCP: Dr. Arturo Amaya MD Status: REG ER Study: Chest 1 View (Portable) Date of Exam: 01/15/24 Exam# [id number] Ordering Dr: Evon Wilson DO [id number] INDICATION: chest pain EXAMINATION/TECHNIQUE: X-RAY - portable upright AP chest x-ray COMPARISON: 10/27/2021 FINDINGS: LINES/DEVICES: None. LUNGS: No consolidation, edema or effusion. No pneumothorax. MEDIASTINUM AND CARDIOVASCULAR STRUCTURES: [Cardiac silhouette stable within upper normal limits. BONES AND SOFT TISSUES: No acute changes. RAD/Chest 1 View (Portable) IMPRESSION: No radiographic evidence of acute cardiopulmonary disease. Electronically Signed: Carl Womack MD at 21:17 EDT , CC: Dr. Arturo Amaya MD; Dr. Evon Wilson DO Charging Plug Placer: Signed Normal [facility] D-Dimer Quantitative (DVT/PE )on 01-15-2024 D-DIMER QUANT 1.10 FEU/ug/m Invalid Interpretation Code 0.27-0.49 [facility] Comment on above: Order Comment: CRITI NICOLE VALUE CALLED TO Savanah MARY01/15/242048 Sophia Bai.RESULTS READ BACK BY SAME. Result Comment: D-Di arturo ELEVATED (>0.49): Additional studies and clinical assessments are indicated to conclude diagnosis of: Deep Vein Thrombosis (DVT) or Pulmonary Embolism (PE) Performed By: #### L 501.5425, L100.0100, L300.8000, L500.2500 ####[facility] [address] [facility] [place], [address] Emergency Department Summary on 01-15-2024 Emergency Department Summary [facility] Medical Records Department [address] [place] [address] Emergency Department Summary 01/15/24 MR#: [id number] Acct: [id number] Name: MARCI MARIE Rep #: [id number] : 1940 83 From: Evon Wilson DO PCP: Dr. Arturo Amaya MD Status:DEP ER Location: ED HPI History of Present Illness Chief Complaint: Chest Pain Detail of Chief Complaint: Chest pain Informant: patient Narrative Narrative: Patient presents the emergency department complaint of chest pain that started this morning around 7:30 AM. She was at rest when she started getting discomfort in her left shoulder and underneath her left arm and over to her left chest initially was sharp and stabbing and at times a burning sensation. Patient states the pain then seemed to ease and since then has had intermittent pressure in the left side of her chest. She also states that she was burping a lot. She currently has no discomfort. Patient tells me that she had a stress test 2 years ago that she could not finish walking and then she had a heart catheterization but did not show any blockages. Patient is not had any recent travel or surgery. She does have history of diabetes, hypertension, and high cholesterol. [facility] Medical History Acute kidney injury Aortic stenosis Atrial fibrillation Chronic venous insufficiency Diabetes mellitus Diabetic neuropathy Diaphragmatic hernia Dyslipidemia Edema of left lower extremity Edema of left lower extremity due to peripheral venous insufficiency Edema of right lower extremity Edema of right lower extremity due to peripheral venous insufficiency Esophageal spasm Esophageal stricture Gastroenteritis GERD (gastroesophageal reflux disease) Hearing deficit Hiatal hernia History of basal cell cancer History of esophageal dilatation HTN (hypertension) Hyperlipidemia Hypokalemia Metabolic acidosis Obesity (BMI 35.0-39.9 without comorbidity) Osteoporosis Overactive bladder Swelling of left lower extremity Swelling of right lower extremity Thrombocytopenia Tinnitus Venous stasis dermatitis Home Medications ???Medication ???Instructions ???Recorded ???Last Taken ???Type glimepiride 4 mg tablet 4 mg PO BID DIABETES 07/05/17 07/29/23 22:00 History 4 mg metformin 500 mg tablet 500 mg PO UD diabetes 07/05/17 07/29/23 History hydrochlorothiazide 25 mg tablet 25 mg PO DAILY diuretic 04/01/18 07/29/23 05:00 History ibuprofen 200 mg tablet 200 mg PO PRN PRN Pain 04/01/18 04/01/18 History cholecalciferol (vitamin D3) 50 4,000 unit PO DAILY supplement 01/11/20 08/12/23 10:00 History mcg (2,000 unit) capsule 4,000 unit amlodipine 2.5 mg tablet (Norvasc) 2.5 mg PO DAILY blood pressure 10/10/22 08/12/23 17:09 History 2.5 mg aspirin 81 mg chewable tablet 1 tab PO DAILY blood thinner 10/10/22 Unknown History (Jalen Chewable Low Dose Aspirin) carvedilol 3.125 mg tablet (Coreg) 3.125 mg PO BID BP 10/10/22 08/12/23 10:00 History 3.125 mg nitroglycerin 0.4 mg sublingual 0.4 mg sublingual Q5M 10/10/22 Unknown History tablet (Nitrostat) sitagliptin phosphate 100 mg 100 mg PO DAILY blood sugar 10/10/22 07/29/23 History tablet (Januvia) cephalexin 500 mg capsule 500 mg PO Q6 #40 CAPSULES 12/07/22 Unknown Rx acetaminophen 500 mg tablet 1,000 mg (2 x 500 mg) PO TID 7 08/14/23 03/31/18 Rx (Tylenol Extra Strength) days #0 tabs furosemide 80 mg tablet 40 mg (1/2 x 80 mg) PO DAILY PRN 08/14/23 Unknown Rx edema 30 days #0 tabs Allergy/AdvReac Type Severity Reaction Status Date / Time acetaminophen (From Vicodin) Allergy Other Verified 01/15/24 19:04 celecoxib (From Celebrex) Allergy Unknown Verified 01/15/24 19:04 codeine Allergy Unknown Verified 01/15/24 19:04 hydrocodone (From Vicodin) Allergy Other Verified 01/15/24 19:04 morphine Allergy Other Verified 01/15/24 19:04 niacin Allergy Unknown Verified 01/15/24 19:04 Penicillins Allergy Unknown Verified 01/15/24 19:04 prednisone Allergy Unknown Verified 01/15/24 19:04 Sulfa (Sulfonamide Allergy Unknown Verified 01/15/24 19:04 Antibiotics) Family History Mother Asthma Father Heart disease Hypertension Arthritis Surgical History History of cholecystectomy History of laparoscopic cholecystectomy History of nasal surgery History of surgery on left wrist History of tonsillectomy history ORIF left wrist History repair broken nose Social History Smoking Status: Never smoker alcohol intake: never substance use type: does not use ROS ROS ED Review of Systems ROS Unobtainable: other Constitutional Cons (more content not included)... Normal [facility] [id number] 01-15-2024 TROPONIN-I HS 23 pg/mL Normal 3.0-54.0 [facility] Comment on above: Order Comment: 1Y Result Comment: Brandee lemons Note: New Test Units and Gender Specific Reference Ranges. For more information see Policy Stat Procedure [place] High Sensitivity Troponin (TNIH) and attachments. Performed By: #### L 501.5425, L100.0100, L300.8000, L500.2500 ####[facility] [id number] [place], [address] CNCOon 12-31-2023 CNCO Letter Text Normal [facility] CNOVon 12-21-2023 CNOV Office Visit (WSTR ) MARCI MARIE ([id number]) 1940 F DEF Date Time Provider Department 12/21/23 2:15 PM MONICA PARRISH [facility] During your visit today, we recorded the following information about you: Temperature Pulse Respiration Blood pressure 98.2 degrees 60/minute 18/minute 169/103 Weight 104.5 kg Monica Parrish APRN.DIESEL MAINTENANCE TECHNICIAN 12/21/2023 2:33 PM Signed Subjective Patient came in with complaints of tooth infection on the left upper jaw. Patient's had trouble with his teeth before. Patient says started a few days ago seems to be getting worse. Patient denies any fever nausea vomiting. The history is provided by the patient. No bilingual speech language pathologist was used. Dental Problem Review of Systems Constitutional: Negative. Skin: Negative. Objective Physical Exam Constitutional: Appearance: Normal appearance. HENT: Head: Comments: Does have mild swelling in the area marked above. No abscesses noted inside. Significant dental caries noted. Pulmonary: Effort: Pulmonary effort is normal. Neurological: Mental Status: She is alert. PAST MEDICAL HISTORY Diagnosis Date Acquired deformity of left toe 03/21/2021 second and third digits Adjustment disorder with depressed mood 01/19/2020 Aortic stenosis, mild 12/02/[address] 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 prior episode ([facility]) 01/19/2020 Diabetic eye exam ([facility]) 08/21/2016 Last Done: 08/09/2017 No Retinopathy Diaphragmatic hernia without mention of obstruction or gangrene Diastolic congestive heart failure ([facility]) 07/03/2022 Elevated alkaline phosphatase level 08/28/2018 Elevated serum GGT level 07/03/2017 Essential hypertension 07/13/2014 Foot callus 03/21/2021 SAMEER (generalized anxiety disorder) 09/05/2018 Gastroesophageal reflux disease with esophagitis 04/23/2015 Herpes zoster mild occasional neuralgia in left cervical area. Hiatal hernia History of colon polyps Mixed hyperlipidemia Morbid obesity with BMI of 40.0-44.9, adult ([facility]) 06/19/2016 Multiple thyroid nodules 03/24/2021 US 03/2021: Needs yearly f/u for 5 yrs OAB (overactive bladder) 10/10/2022 Osteopenia 04/24/2011; Start vitamin d 1,000/day and RE-CHECK 2013 Personal history of other malignant neoplasm of skin 02/26/2009 Schatzki's ring Sebaceous cyst 07/03/2017 lower anterior neck Skin cancer, basal cell 04/23/2015 nose Stricture and stenosis of esophagus egd/dilatation by Dr. Hollins; Tinnitus of both ears 12/26/2021 Due to hearing loss. Type 2 diabetes mellitus with proteinuria ([facility]) ([facility]) 07/07/2013 Uncontrolled type 2 diabetes mellitus with hyperglycemia ([facility]) 01/02/2020 Venous (peripheral) insufficiency 12/21/2015 Vitamin D deficiency 11/26/2015 PAST SURGICAL HISTORY Procedure Laterality Date 2D ECHO (EXEP) 12/02/2015 EF=59% mild LVH, mild MR,TR and 2D ECHO (EXEP) 02/13/2020 EF=65%, mild dilated LA, 1+ MR and CHOLECYSTECTOMY Cholecystectomy COLONOSCOPY 11/04/2018 Sessile serrated polyp, Tubullovillous adenoma. Dr. Filemon Galvan. COLONOSCOPY SCRN NOT HIGH RISK 06/10/2003 upper and lower EGD 08/17/2009 Dr. Theo Hollins EGD DILATION 11/04/2018 Schatzi's Ring, mild reactive gastropathy. Dr. Filemon Galvan. ESOPHAGOGASTRODUODENOSCOPY TRANSORAL DIAGNOSTIC 06/2003 EGD EXERCISE ECG STRESS TEST 03/02/2020 negative NOSE SURGERY HX 2006 Nasal fracture repair REVISE MEDIAN N/CARPAL TUNNEL SURG Right 09/14/2022 TONSILLECTOMY AND ADENOIDECTOMY HX WRIST SURGERY HX 12/1988 Broken Left wrist surgery at [facility] - Dr. Delgado ALLERGIES Codeine, Penicillins, Pioglitazone, Prednisone, Acetaminophen, Niacin, Celebrex [Celecoxib], Niacin, and Sulfa (Sulfonamide Antibiotics) MEDICATIONS cephALEXin (KEFLEX) 500 mg capsule Take 1 capsule by mouth four times daily for 5 days. amLODIPine (NORVASC) 2.5 mg tablet Take 1 tablet by mouth once daily. furosemide (LASIX) 40 mg tablet Take 1 tablet by mouth as needed. glimepiride (AMARYL) 2 mg tablet Take 1 tablet by mouth daily with dinner. hydroCHLOROthiazide 25 mg tablet Take 1 tablet by mouth once daily. lisinopril (ZESTRIL) 40 mg tablet Take 1 tablet by mouth two times a day. metFORMIN (GLUCOPHAGE) 500 mg tablet Take by mouth. take 2 tabs w/breakfast;1 tab with lunch and TWO tabs w/ dinner nitroglycerin sublingual (NITROQUICK) 0.4 mg SL tablet Dissolve 1 tablet under the tongue as needed. FOR CHEST PAIN. IF NO RELIEF CALL 911 carvedilol (COREG) 3.125 mg tablet Take 1 tablet by mouth two times a day with meals. SITagliptin phosphate (JANUVIA) 100 mg t (more content not included)... Normal [facility] CNOVon 11-17-2023 CNOV Office Visit ([facility] ) MARCI MARIE ([id number]) 1940 F DEF Date Time Provider Department 11/17/23 3:15 PM MONICA PARRISH [facility] During your visit today, we recorded the following information about you: Temperature Pulse Respiration Blood pressure 98.3 degrees 78/minute 18/minute 155/76 Weight 105.7 kg Monica Parrish APRN.DIESEL MAINTENANCE TECHNICIAN 11/17/2023 3:28 PM Addendum Subjective Patient came in with complaints of water blister on her right lower pitts. Patient says it started several days ago and has been draining for the last few days. Patient says today she woke up and noticed some redness around it. Patient says in July she was hospitalized with an infection in the leg. Patient does have history of high blood pressure and diabetes. Patient denies any other symptoms associated with this. The history is provided by the patient. No bilingual speech language pathologist was used. Edema Review of Systems Constitutional: Negative. Skin: Negative. Objective Physical Exam Constitutional: Appearance: Normal appearance. Pulmonary: Effort: Pulmonary effort is normal. Skin: Comments: 5-6 cm water blister located int he area marked above. It is draining. Some redness and warmth noted around area. Patient did have a dressing and Chava wrap on the wound. When I remove them they were wet so I did replace some with a nonstick dressing and Chava wrap. Neurological: Mental Status: She is alert. PAST MEDICAL HISTORY 03/21/2021: Acquired deformity of left toe Comment: second and third digits 01/19/2020: Adjustment disorder with depressed mood 12/02/2015: Aortic stenosis, mild Comment: Seeing Dr. 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) 09/18/2016: Corns and callus 01/19/2020: Current severe episode of major depressive disorder with psychotic features without prior episode (HCC) 08/21/2016: Diabetic eye exam ([facility]) Comment: Last Done: 08/09/2017 No Retinopathy No date: Diaphragmatic hernia without mention of obstruction or gangrene 07/03/2022: Diastolic congestive heart failure (HCC) 08/28/2018: Elevated alkaline phosphatase level 07/03/2017: Elevated serum GGT level 07/13/2014: Essential hypertension 03/21/2021: Foot callus 09/05/2018: SAMEER (generalized anxiety disorder) 04/23/2015: Gastroesophageal reflux disease with esophagitis No date: Herpes zoster Comment: mild occasional neuralgia in left cervical area. No date: Hiatal hernia No date: History of colon polyps No date: Mixed hyperlipidemia 06/19/2016: Morbid obesity with BMI of 40.0-44.9, adult ([facility]) 03/24/2021: Multiple thyroid nodules Comment: US 03/2021: Needs yearly f/u for 5 yrs 10/10/2022: OAB (overactive bladder) 04/24/2011: Osteopenia Comment: Apr 2011; Start vitamin d 1,000/day and RE-CHECK 201302/26/2009: Personal history of other malignant neoplasm of skin No date: Schatzki's ring 07/03/2017: Sebaceous cyst Comment: lower anterior neck 04/23/2015: Skin cancer, basal cell Comment: nose No date: Stricture and stenosis of esophagus Comment: egd/dilatation by Dr. Hollins; 12/26/2021: Tinnitus of both ears Comment: Due to hearing loss. 07/07/2013: Type 2 diabetes mellitus with proteinuria ([facility]) ([facility]) 01/02/2020: Uncontrolled type 2 diabetes mellitus with hyperglycemia ([facility]) 12/21/2015: Venous (peripheral) insufficiency 11/26/2015: Vitamin D deficiency PAST SURGICAL HISTORY 12/02/2015: 2D ECHO (EXEP) Comment: EF=59% mild LVH, mild MR,TR and 02/13/2020: 2D ECHO (EXEP) Comment: EF=65%, mild dilated LA, 1+ MR and No date: CHOLECYSTECTOMY Comment: Cholecystectomy 11/04/2018: COLONOSCOPY Comment: Sessile serrated polyp, Tubullovillous adenoma. Dr. Filemon Galvan. 06/10/2003: COLONOSCOPY SCRN NOT HIGH RISK Comment: upper and lower 08/17/2009: EGD Comment: Dr. Theo Hollins 11/04/2018: EGD DILATION Comment: Schatzi's Ring, mild reactive gastropathy. Dr. Filemon Galvan. 06/2003: ESOPHAGOGASTRODUODENOSCOPY TRANSORAL DIAGNOSTIC Comment: EGD 03/02/2020: EXERCISE ECG STRESS TEST Comment: negative 2006: NOSE SURGERY HX Comment: Nasal fracture repair 09/14/2022: REVISE MEDIAN N/CARPAL TUNNEL SURG; Right No date: TONSILLECTOMY AND ADENOIDECTOMY HX 12/1988: WRIST SURGERY HX Comment: Broken Left wrist surgery at [facility] - Dr. Delgado ALLERGIES Codeine, Penicillins, Pioglitazone, Prednisone, Acetaminophen, Niacin, Celebrex [Celecoxib], Niacin, and Sulfa (Sulfonamide Antibiotics) MEDICATIONS amLODIPine (NORVASC) 2.5 mg tablet Take 1 tablet by mouth once daily. furosemide (LASIX) 40 mg tablet Take 1 tablet by mouth as needed. glimepiride (AMARYL) 2 mg tablet Take 1 tablet by mouth daily with dinner. hydroCH (more content not included)... Normal [facility] Absolute lymphocyte countOrd ered By: Enzo Nunes on 08-12-2023 Lymphocytes Auto (Unsp spec) [#/Vol] 1.16 10*3/uL 0.83-4.51 [facility] Automated lymphocyte count a s percentage of total leukocytesOrdered By: Enzo Nunes on 08-12-2023 Lymphocytes/100 WBC Auto (Unsp spec) 23.1 % 19-41 [facility] Base excessOrdered By: Taylor Nunes on 08-12-2023 Base excess Calc (BldV) [Moles/Vol] -2 mmol/L -1.0-3.5 [facility] Basophil percentageOrdered B y: Enzo Nunes on 08-12-2023 Basophils/100 WBC (Bld) 1.0 % 0-1 [facility] Bilirubin [Mass/Vol] 1.10 mg/dL 0.20-1.00 [facility] Comment on above: For patients on eltr ombopag therapy, use of Dimension [place] TBIL is not recommended. Chloride [Moles/Vol] 100 mmol/L 98-107 [facility] Eosinophils/100 WBC (Bld) 1.6 % 0-5 [facility] Glucose [Mass/Vol] 440 mg/dL 74-106 [facility] Comment on above: Glucose result great er than or equal to 200 mg/dLsuggests DIABETES MELLITUS per A.D.A. criteria. Hemoglobin (Bld) [Mass/Vol] 13.2 g/dL 12.0-15.0 [facility] Lactate [Moles/Vol] 1.4 mmol/L 0.4-2.0 [facility] Monocytes/100 WBC (Bld) 7.8 % 0-10 [facility] Neutrophils (Bld) [#/Vol] 3.3 10*3/uL 2.0-7.7 [facility] Neutrophils/100 WBC (Bld) 66.1 % 47-70 [facility] Potassium [Moles/Vol] 4.2 mmol/L 3.5-5.1 [facility] Protein [Mass/Vol] 6.5 g/dL 6.4-8.2 [facility] Sodium [Moles/Vol] 136 mmol/L 136-145 [facility] WBC (Bld) [#/Vol] 5.0 10*3/uL 4.4-11.0 [facility] CO2 (BldV) [Moles/Vol]Ordere d By: Enzo Nunes on 08-12-2023 CO2 [Moles/Vol] 25 mmol/L 23-33 [facility] Determination of erythrocyte mean corpuscular volume (MCV)Ordered By: Enzo Nunes on 08-12-2023 MCV (RBC) [Entitic vol] 96.0 fL 81-99 [facility] Erythrocyte distribution wid th ratioOrdered By: Enzo Nunes on 08-12-2023 Erythrocyte distribution width (RBC) [Ratio] 13.3 % 11.6-14.6 [facility] Erythrocyte distribution wid th standard deviationOrdered By: Enzo Nunes on 08-12-2023 Erythrocyte distribution width (RBC) [Entitic vol] 47.0 fL 35.1-43.9 [facility] Hematocrit Auto (Bld) [Volum e fraction]Ordered By: Enzo Nunes on 08-12-2023 Hematocrit (Bld) [Volume fraction] 40.4 % 37-47 [facility] Immature granulocytes/100 WB C Auto (Bld)Ordered By: Enzo Nunes on 08-12-2023 Immature granulocytes/100 WBC (Bld) 0.400 % 0.0-0.9 [facility] Comment on above: IG% - Immature Granu locytes (promyelocytes, myelocytes and metamyelocytes) > 1% indicates that a LEFT SHIFT is Present. Laboratory - Chemistry and C hemistry - challengeOrdered By: Enzo Nunes on 08-12-2023 HCO3 (Bld) [Moles/Vol] 24 mmol/L 22-26 [facility] Albumin/Globulin [Mass ratio] 1.0 {ratio} 0.9-2.4 [facility] ALP [Catalytic activity/Vol] 214 U/L 45-117 [facility] ALT [Catalytic activity/Vol] 24 U/L 13-56 [facility] CO2 [Moles/Vol] 24.0 mmol/L 21.0-32.0 [facility] Globulin (S) [Mass/Vol] 3.2 g/dL 2.2-4.2 [facility] Urea nitrogen/Creatinine [Mass ratio] 25.5 mg/mg 10-20 [facility] Laboratory - Hematology and Cell countsOrdered By: Enzo Nunes on 08-12-2023 MCH (RBC) [Entitic mass] 31.4 pg 27.0-32.0 [facility] MCHC (RBC) [Mass/Vol] 32.7 g/dL 32-36 [facility] Nucleated RBC/100 WBC (Bld) [Ratio] 0 % 0-5 [facility] Platelet mean volume (Bld) [Entitic vol] 11.1 fL 6.2-12.0 [facility] Platelets (Bld) [#/Vol] 162 10*3/uL 150-450 [facility] No Panel InformationOrdered By: Enzo Nunes on 08-12-2023 Blood Gas Sample Site Not entered [facility] Blood Gas Specimen Type JASON [facility] Oxygen Delivery Device Not entered [facility] Estimated Creatinine Clearance Calc 62.33 ml/min [facility] Estimated GFR (MDRD) Amer 86 mL/min >60 [facility] Comment on above: GFR Calc Estimated GFR (MDRD) Non-Af Amer 71 mL/min >60 [facility] Comment on above: Non- GFR Calc PCO2 venousOrdered By: Taylor Nunes on 08-12-2023 CO2 (BldV) [Partial pressure] 41.5 mm[Hg] 41-51 [facility] PO2 venousOrdered By: Enzo Nunes on 08-12-2023 Oxygen (BldV) [Partial pressure] 39 mm[Hg] 25-40 [facility] RBC Auto (Bld) [#/Vol]Ordere d By: Enzo Nunes on 08-12-2023 RBC (Bld) [#/Vol] 4.21 10*6/uL 4.2-5.4 [facility] Serum or plasma acetone stephanie urement (mass/volume)Ordered By: Enzo Nunes on 08-12-2023 Acetone [Mass/Vol] SMALL NEG [facility] Serum or plasma calcium stephanie urement (mass/volume)Ordered By: Enzo Nunes on 08-12-2023 Calcium [Mass/Vol] 9.8 mg/dL 8.5-10.1 [facility] Serum or plasma creatinine m easurement (mass/volume)Ordered By: Enzo Nunes on 08-12-2023 Creatinine [Mass/Vol] 0.82 mg/dL 0.55-1.02 [facility] Comment on above: The validity of the calculated GFR & GFRAA in patients over 70 years has not been determined. Clinical correlation is essential. Serum or plasma urea nitroge n measurement (mass/volume)Ordered By: Enzo Nunes on 08-12-2023 Urea nitrogen [Mass/Vol] 21 mg/dL 7-18 [facility] Thin prep Papanicolaou smear with manual screeningOrdered By: Enzo Nunes on 08-12-2023 Thin prep Papanicolaou smear with manual screening 3.3 g/dL 3.2-5.0 [facility] Thin prep Papanicolaou smear with manual screening 16 U/L 15-37 [facility] Thin prep Papanicolaou smear with manual screening 12 5-15 [facility] Venous blood pH measurementO rdered By: Enzo Nunes on 08-12-2023 pH (BldV) 7.36 [pH] 7.32-7.42 [facility] Vital signsOrdered By: Taylor Nunes on 08-12-2023 Oxygen saturation in Blood 72 % 50-70 [facility] Whole blood hemoglobin A1c/t otal hemoglobin ratio (mass fraction)Ordered By: Guru Bautista on 08-12-2023 HbA1c (Bld) [Mass fraction] 12.3 % 3.8-5.6 [facility] Comment on above: Normal < 5.7 % Predi abetic 5.7 - 6.4 % Diabetic >or= 6.5 % Please note range changes. Basophil percentageOrdered B y: Evon Hilliardchristiano on 12-07-2022 Lactate [Moles/Vol] 1.0 mmol/L 0.4-2.0 [facility] No Panel InformationOrdered By: [facility] Wilson on 12-07-2022 Troponin I High Sensitivity 22 pg/mL 3.0-54.0 [facility] Comment on above: Please Note: New Laura t Units and Gender Specific Reference Ranges. For more information see Policy Stat Procedure [place] High Sensitivity Troponin (TNIH) and attachments. Absolute lymphocyte countOrd ered By: [facility] Tao on 12-06-2022 Lymphocytes Auto (Unsp spec) [#/Vol] 1.87 10*3/uL 0.83-4.51 [facility] Basophil percentageOrdered B y: Thorp Tao on 12-06-2022 Basophils/100 WBC (Bld) 0.9 % 0-1 [facility] Chloride [Moles/Vol] 102 mmol/L 98-107 [facility] Eosinophils/100 WBC (Bld) 3.8 % 0-5 [facility] Glucose [Mass/Vol] 295 mg/dL 74-106 [facility] Comment on above: Glucose result great er than or equal to 200 mg/dLsuggests DIABETES MELLITUS per A.D.A. criteria. Neutrophils (Bld) [#/Vol] 3.7 10*3/uL 2.0-7.7 [facility] Neutrophils/100 WBC (Bld) 57.4 % 47-70 [facility] Potassium [Moles/Vol] 3.8 mmol/L 3.5-5.1 [facility] Sodium [Moles/Vol] 137 mmol/L 136-145 [facility] WBC (Bld) [#/Vol] 6.4 10*3/uL 4.4-11.0 [facility] Blood erythrocytes count (nu mber/volume)Ordered By: [facility] Wilson on 12-06-2022 RBC (Bld) [#/Vol] 4.45 10*6/uL 4.2-5.4 [facility] Blood hemoglobin measurement (mass/volume)Ordered By: Evon Wilson on 12-06-2022 Hemoglobin (Bld) [Mass/Vol] 14.2 g/dL 12.0-15.0 [facility] Blood lymphocytes/100 leukoc ytesOrdered By: Evon Wilson on 12-06-2022 Lymphocytes/100 WBC (Bld) 29.4 % 19-41 [facility] Blood monocytes/100 leukocyt esOrdered By: Evon Wilson on 12-06-2022 Monocytes/100 WBC (Bld) 8.3 % 0-10 [facility] Blood platelet mean volumeOr dered By: Evon Wilson on 12-06-2022 Platelet mean volume (Bld) [Entitic vol] 12.1 fL 6.2-12.0 [facility] Determination of erythrocyte mean corpuscular volume (MCV)Ordered By: Evon Wilson on 12-06-2022 MCV (RBC) [Entitic vol] 98.7 fL 81-99 [facility] Hematocrit Auto (Bld) [Volum e fraction]Ordered By: [facility] on 12-06-2022 Hematocrit (Bld) [Volume fraction] 43.9 % 37-47 [facility] Laboratory - Chemistry and C hemistry - challengeOrdered By: Evon Wilson on 12-06-2022 CO2 [Moles/Vol] 29.0 mmol/L 21.0-32.0 [facility] Urea nitrogen/Creatinine [Mass ratio] 28.6 mg/mg 10-20 [facility] Laboratory - Hematology and Cell countsOrdered By: Evon Wilson on 12-06-2022 Erythrocyte distribution width (RBC) [Entitic vol] 50.1 fL 35.1-43.9 [facility] Erythrocyte distribution width (RBC) [Ratio] 13.8 % 11.6-14.6 [facility] Immature granulocytes/100 WBC (Bld) 0.200 % 0.0-0.9 [facility] Comment on above: IG% - Immature Granu locytes (promyelocytes, myelocytes and metamyelocytes) > 1% indicates that a LEFT SHIFT is Present. MCH (RBC) [Entitic mass] 31.9 pg 27.0-32.0 [facility] Nucleated RBC/100 WBC (Bld) [Ratio] 0 % 0-5 [facility] MCHC Auto (RBC) [Mass/Vol]Or dered By: Evon Wilson on 12-06-2022 MCHC (RBC) [Mass/Vol] 32.3 g/dL 32-36 [facility] No Panel InformationOrdered By: Evon Wilson on 12-06-2022 Estimated Creatinine Clearance Calc 48.28 ml/min [facility] Estimated GFR (MDRD) Amer 80 mL/min >60 [facility] Comment on above: GFR Calc Estimated GFR (MDRD) Non-Af Amer 66 mL/min >60 [facility] Comment on above: Non- GFR Calc Platelets bldOrdered By: Chiquita Wilson on 12-06-2022 Platelets (Bld) [#/Vol] 201 10*3/uL 150-450 [facility] Serum or plasma calcium stephanie urement (mass/volume)Ordered By: Evon Wilson on 12-06-2022 Calcium [Mass/Vol] 9.8 mg/dL 8.5-10.1 [facility] Serum or plasma creatinine m easurement (mass/volume)Ordered By: Evon Wilson on 12-06-2022 Creatinine [Mass/Vol] 0.87 mg/dL 0.55-1.02 [facility] Comment on above: The validity of the calculated GFR & GFRAA in patients over 70 years has not been determined. Clinical correlation is essential. Serum or plasma urea nitroge n measurement (mass/volume)Ordered By: Evon Wilson on 12-06-2022 Urea nitrogen [Mass/Vol] 25 mg/dL 7-18 [facility] Thin prep Papanicolaou smear with manual screeningOrdered By: Evon Wilson on 12-06-2022 Thin prep Papanicolaou smear with manual screening 6 5-15 [facility] CBC W Auto Differential pane l (Bld)on 09-26-2022 Basophils (Bld) [#/Vol] 0.09 10*3/uL <0.11 k/uL [facility] Basophils/100 WBC (Bld) 1.7 % [facility] Differential cell count method Nom (Bld) Auto [facility] Eosinophils (Bld) [#/Vol] 0.21 10*3/uL <0.46 k/uL [facility] Eosinophils/100 WBC (Bld) 4.0 % [facility] Erythrocyte distribution width (RBC) [Ratio] 13.7 % 11.5 - 15.0 % [facility] Hematocrit (Bld) [Volume fraction] 43.2 % 36.0 - 46.0 % [facility] Hemoglobin (Bld) [Mass/Vol] 14.0 g/dL 11.5 - 15.5 g/dL [facility] Immature granulocytes (Bld) [#/Vol] <0.10 k/uL [facility] Immature granulocytes/100 WBC (Bld) 0.2 % [facility] Lymphocytes (Bld) [#/Vol] 1.00 10*3/uL 1.00 - 4.00 k/uL [facility] Lymphocytes/100 WBC (Bld) 18.9 % [facility] MCH (RBC) [Entitic mass] 31.7 pg 26.0 - 34.0 pg [facility] MCHC (RBC) [Mass/Vol] 32.4 g/dL 30.5 - 36.0 g/dL [facility] MCV (RBC) [Entitic vol] 97.7 fL 80.0 - 100.0 fL [facility] Monocytes (Bld) [#/Vol] 0.64 10*3/uL <0.87 k/uL [facility] Monocytes/100 WBC (Bld) 12.1 % [facility] Neutrophils (Bld) [#/Vol] 3.33 10*3/uL 1.45 - 7.50 k/uL [facility] Neutrophils/100 WBC (Bld) 63.1 % [facility] Nucleated RBC (Bld) [#/Vol] <0.01 k/uL [facility] Nucleated RBC/100 WBC (Bld) [Ratio] 0.0 /100 WBC [facility] Platelet mean volume (Bld) [Entitic vol] 11.1 fL 9.0 - 12.7 fL [facility] Platelets (Bld) [#/Vol] 207 10*3/uL 150 - 400 k/uL [facility] RBC (Bld) [#/Vol] 4.42 10*6/uL 3.90 - 5.20 m/uL [facility] WBC (Bld) [#/Vol] 5.28 10*3/uL 3.70 - 11.00 k/uL [facility] XR ABDOMEN 1V SUPINEon 09-25 [facility] XR Abdomen Supine and Uprigh ton 09-25-2022 IMPRESSION: 1. Nonobstructive bowel gas pattern. 2. Moderate stool burden. Charging Plug Placer: [facility] Transcribe Date/Time: Sep 25 2022 12:16P Dictated by : AVI SOTELO MD This examination was interpreted and the report reviewed and electronically signed by: AVI SOTELO MD on Sep 25 2022 12:17PM EST DIVISION OF RADIOLOGY * * *Final Report* * * DATE OF EXAM: Sep 25 2022 12:12PM WOX [id number] - XR ABDOMEN 1V SUPINE / PROCEDURE REASON: Acute constipation * * * * Physician Interpretation * * * * TITLE: XR ABDOMEN 1V SUPINE CLINICAL INDICATION: Acute constipation TECHNIQUE: Supine frontal radiograph of the abdomen COMPARISON: None FINDINGS: Right upper quadrant surgical clips. Nonobstructive bowel gas pattern. Moderate stool burden scattered throughout the colon. Degenerative changes in the spine. DIVISION OF RADIOLOGY Provider, [facility] - 09/25/2022 * * *Final Report* * * DATE OF EXAM: Sep 25 2022 12:12PM WOX 5289 - XR ABDOMEN 1V SUPINE / PROCEDURE REASON: Acute constipation * * * * Physician Interpretation * * * * TITLE: XR ABDOMEN 1V SUPINE CLINICAL INDICATION: Acute constipation TECHNIQUE: Supine frontal radiograph of the abdomen COMPARISON: None FINDINGS: Right upper quadrant surgical clips. Nonobstructive bowel gas pattern. Moderate stool burden scattered throughout the colon. Degenerative changes in the spine. IMPRESSION IMPRESSION: 1. Nonobstructive bowel gas pattern. 2. Moderate stool burden. [facility] Transcribe Date/Time: Sep 25 2022 12:16P Dictated by : AVI SOTELO MD This examination was interpreted and the report reviewed and electronically signed by: AVI SOTELO MD on Sep 25 2022 12:17PM EST [facility] Radiology Study observation (narrative) [facility] XR Abdomen Supine and Uprigh tOrdered By: [facility] Provider on 09-25-2022 [facility] XR Cervical spine AP and Lat eral and obliqueon 12-27-2021 IMPRESSION: Cervical degenerative findings with 1.5 mm anterolisthesis at C5-6 Charging Plug Placer: [facility] Transcribe Date/Time: Dec 27 2021 1:09P Dictated by : KIM ROSALES MD This examination was interpreted and the report reviewed and electronically signed by: KIM ROSALES MD on Dec 27 2021 1:12PM [facility] DIVISION OF RADIOLOGY * * *Final Report* * * DATE OF EXAM: Dec 26 2021 2:21PM WOX [id number] - XR CERVICAL 4V AP/LAT/OBL / PROCEDURE REASON: Neck pain * * * * Physician Interpretation * * * * Neck pain HISTORY: 81 years old Clinical information: Neck pain neck pain when turning head TECHNIQUE: Images: XR CERVICAL 4V AP/LAT/OBL Comparison: None. RESULT: Findings: There is 1.5 mm anterolisthesis at C5-6 disc space with mild disc space narrowing and endplate spurring. Mid and lower cervical unco-vertebral joint space narrowing and spurring. Bilateral facet hypertrophic spurring. Probable narrowing LEFT C5-6 neural foramen. Right neural foramina are difficult to evaluate due to positioning. DIVISION OF RADIOLOGY [facility] * * *Final Report* * * DATE OF EXAM: Dec 26 2021 2:21PM WOX [id number] - XR CERVICAL 4V AP/LAT/OBL / PROCEDURE REASON: Neck pain * * * * Physician Interpretation * * * * Neck pain HISTORY: 81 years old Clinical information: Neck pain neck pain when turning head TECHNIQUE: Images: XR CERVICAL 4V AP/LAT/OBL Comparison: None. RESULT: Findings: There is 1.5 mm anterolisthesis at C5-6 disc space with mild disc space narrowing and endplate spurring. Mid and lower cervical unco-vertebral joint space narrowing and spurring. Bilateral facet hypertrophic spurring. Probable narrowing LEFT C5-6 neural foramen. Right neural foramina are difficult to evaluate due to positioning. IMPRESSION IMPRESSION: Cervical degenerative findings with 1.5 mm anterolisthesis at C5-6 Charging Plug Placer: [facility] Transcribe Date/Time: Dec 27 2021 1:09P Dictated by : KIM ROSALES MD This examination was interpreted and the report reviewed and electronically signed by: KIM ROSALES MD on Dec 27 2021 1:12PM EST [facility] XR Cervical spine AP and Lat eral and obliqueOrdered By: [facility] Provider on 12-27-2021 [facility] XR Cervical spine AP and Lat eral and obliqueon 12-26-2021 Radiology Study observation (narrative) [facility] CT BRAIN WO IVCONon 12-07-19 [facility] CBC W Auto Differential pane l (Bld)on 11-22-2021 Abs Immature Gran <0.10 k/uL [facility] Basophils (Bld) [#/Vol] 0.08 10*3/uL <0.11 k/uL [facility] Basophils/100 WBC (Bld) 1.5 % [facility] Differential cell count method Nom (Bld) Auto [facility] Eosinophils (Bld) [#/Vol] 0.59 10*3/uL High <0.46 k/uL [facility] Eosinophils/100 WBC (Bld) 10.9 % [facility] Erythrocyte distribution width (RBC) [Ratio] 13.2 % 11.5 - 15.0 % [facility] Hematocrit (Bld) [Volume fraction] 41.0 % 36.0 - 46.0 % [facility] Hemoglobin (Bld) [Mass/Vol] 13.5 g/dL 11.5 - 15.5 g/dL [facility] Immature Gran % 0.2 % [facility] Lymphocytes (Bld) [#/Vol] 1.68 10*3/uL 1.00 - 4.00 k/uL [facility] Lymphocytes/100 WBC (Bld) 30.9 % [facility] MCH (RBC) [Entitic mass] 32.3 pg 26.0 - 34.0 pg [facility] MCHC (RBC) [Mass/Vol] 32.9 g/dL 30.5 - 36.0 g/dL [facility] MCV (RBC) [Entitic vol] 98.1 fL 80.0 - 100.0 fL [facility] Monocytes (Bld) [#/Vol] 0.44 10*3/uL <0.87 k/uL [facility] Monocytes/100 WBC (Bld) 8.1 % [facility] Neutrophils (Bld) [#/Vol] 2.63 10*3/uL 1.45 - 7.50 k/uL [facility] Neutrophils/100 WBC (Bld) 48.4 % [facility] Nucleated RBC (Bld) [#/Vol] <0.01 k/uL [facility] Nucleated RBC/100 WBC (Bld) [Ratio] 0.0 /100 WBC [facility] Platelet mean volume (Bld) [Entitic vol] 11.0 fL 9.0 - 12.7 fL [facility] Platelets (Bld) [#/Vol] 209 10*3/uL 150 - 400 k/uL [facility] RBC (Bld) [#/Vol] 4.18 10*6/uL 3.90 - 5.20 m/uL [facility] WBC (Bld) [#/Vol] 5.43 10*3/uL 3.70 - 11.00 k/uL [facility] Comprehensive metabolic 2000 panelon 11-22-2021 Albumin [Mass/Vol] 4.6 g/dL 3.9 - 4.9 g/dL [facility] ALP [Catalytic activity/Vol] 135 U/L High 34 - 123 U/L [facility] ALT [Catalytic activity/Vol] 23 U/L 7 - 38 U/L [facility] Anion gap [Moles/Vol] 10 mmol/L 9 - 18 mmol/L [facility] AST [Catalytic activity/Vol] 24 U/L 13 - 35 U/L [facility] Bilirubin [Mass/Vol] 0.4 mg/dL 0.2 - 1 .3 mg/dL [facility] Calcium [Mass/Vol] 10.6 mg/dL High 8.5 - 10. 2 mg/dL [facility] Chloride [Moles/Vol] 100 mmol/L 97 - 10 5 mmol/L [facility] CO2 [Moles/Vol] 27 mmol/L 22 - 30 mmol/L [facility] Creatinine [Mass/Vol] 0.99 mg/dL High 0.58 - 0.96 mg/dL [facility] Estimated Glomerular Filtration Rate 58 mL/min/1.73m Low >=60 mL/min/1.7 3m [facility] Glucose [Mass/Vol] 118 mg/dL High 74 - 99 mg/dL [facility] Potassium [Moles/Vol] 4.4 mmol/L 3.7 - 5.1 mmol/L [facility] Protein [Mass/Vol] 7.0 g/dL 6.3 - 8.0 g/dL [facility] Sodium [Moles/Vol] 137 mmol/L 136 - 144 mmol/L [facility] Urea nitrogen [Mass/Vol] 25 mg/dL High 7 - 21 mg/dL [facility] TSH BLDon 11-22-2021 TSH Qn 2.570 m[IU]/L 0.270 - 4.200 mIU/L [facility] VITAMIN B12 BLOODon 11-23-19 Cobalamin (Vitamin B12) [Mass/Vol] 536 pg/mL 232 - 1,245 pg/mL [facility] UA DIP, URINE (POC)on 2021 BILIRUBIN UA (POCT) Negative Negative [facility] CLARITY UA (POCT) Clear [facility] COLOR UA (POCT) Yellow [facility] GLUCOSE UA (POCT) Negative Negative mg/dL [facility] HEMOGLOBIN/BLOOD UA (POCT) Negative Negative [facility] KETONE UA (POCT) Negative Negative mg/dL [facility] LEUKOCYTES UA (POCT) Trace Abnormal Negative [facility] NITRITE UA (POCT) Negative Negative [facility] PH UA (POCT) 7.0 4.5 - 8.0 [facility] Protein Ql (U) Negative Negative mg/dL [facility] SPECIFIC GRAVITY UA (POCT) 1.015 1.005 - 1.030 [facility] UROBILINOGEN UA (POCT) 1.0 E.U./dL Brenna l E.U./dL [facility] CARD CATH DIAGNOSTICon 11-15 CARD CATH DIAGNOSTIC Site Id: [facility] Lab #: DEFAULT Study Date: 11/15/2021 Start Time: End Time: Name Duty Hai Hopson MD PROC 1 Maximo Howell RT PROC SCRUB 1 Scott Adames RN PROC CIRC 1 Becki Schwartz PROC CIRC 2 Rosalie Curtis RN PROC RECORD 1 + + PATIENT INFORMATION + + Name: [facility] : 1940 Age: 81 years Gender: Height: 66 in / 168 cm Weight: 238.21 lb / 108.05 kg BMI: 38.45 kg/m? BSA: 2.15 m? + --+ CLINICAL HISTORY/INDICATIONS + --+ Dyspnea and Abnormal ECG. Procedural Status: Elective CAD Presentation: Symptoms Likely to be Ischemic Angina Classification (within 2 weeks): No Angina No Heart Failure Clinical History: 81 male with Exertional Shortness of breath + + DIAGNOSTIC FINDINGS + + Coronary Anatomy: Right Dominant Injection Site(s): Coronary Artery LMT: _ The LMT is normal. LAD: _ The LAD is normal. LCX: _ The Circumflex is normal. RAMUS: _ Ramus Status: Not Applicable. RCA: _ RCA is normal. Left Ventriculogram:Normal LV size and function LVEF= 60% + + IMPRESSION/PLAN + + Impression:1. Mild Coronary artery disease. 2. Normal LV size and function . Recommended Treatment: Medical Therapy. Plan: Medical therapy + + HEMODYNAMICS - XPER + + + +------+-- ---+-------+------+------+- -----+ Measurement Name Sys Kade End Kade Mean A Wave V Wave + +------+-- ---+-------+------+------+- -----+ AO 188.00 73.00 117.00 + +------+-- ---+-------+------+------+- -----+ AO 142.00 79.00 108.00 + +------+-- ---+-------+------+------+- -----+ AO 141.00 78.00 106.00 + +------+-- ---+-------+------+------+- -----+ LV 159.00 14.00 24.00 + +------+-- ---+-------+------+------+- -----+ LVp 164.00 7.00 27.00 + +------+-- ---+-------+------+------+- -----+ AOp 154.00 67.00 103.00 + +------+-- ---+-------+------+------+- -----+ RA 18.00 20.00 19.00 + +------+-- ---+-------+------+------+- -----+ RV 47.00 16.00 20.00 + +------+-- ---+-------+------+------+- -----+ PW 31.00 31.00 37.00 + +------+-- ---+-------+------+------+- -----+ PA 46.00 24.00 33.00 + +------+-- ---+-------+------+------+- -----+ Oximetry: + +----+ +-----+---+--- --+ Time Site O2 Saturation O2 PO2 HB + +----+ +-----+---+--- --+ 11/15/2021 8:01:27 AM AO 97.00 18.21 13.80 + +----+ +-----+---+--- --+ 11/15/2021 8:01:27 AM RA 77.00 14.45 13.80 + +----+ +-----+---+--- --+ 11/15/2021 8:01:27 AM AO 97.00 18.21 13.80 + +----+ +-----+---+--- --+ 11/15/2021 8:01:27 AM PA 75.00 14.08 13.80 + +----+ +-----+---+--- --+ Cardiac Outputs: +--------+-----+ TALON SV 87.80 +--------+-----+ TALON CO 7.64 +--------+-----+ TALON CI 3.54 +--------+-----+ TALON HR +--------+-----+ MAN CO +--------+-----+ MAN CI +--------+-----+ TD SV 78.50 +--------+-----+ TD CO 6.83 +--------+-----+ TD CI 3.17 +--------+-----+ ANGIO SV +--------+-----+ ANGIO CO +--------+-----+ ANGIO CI +--------+-----+ + --------+ ADVERSE OUTCOME(s)/COMPLICATION(s) + --------+ None + ----+ PROCEDURAL & TECHNICAL DETAILS + ----+ Date Time Description 11/15/2021 12:00:00 AM Right Heart Cath 11/15/2021 12:00:00 AM Left Heart Cath *MEDICAL HISTORY* CAD Presentation: Symptoms Likely to be Ischemic Angina Classification (within 2 weeks): No Angina No Heart Failure Family History of CAD: Yes Congenital Heart Disease: No Coronary Artery Disease: No Dyslipidemia: Yes Hypertension: Yes Myocarditis: No Pericarditis: No Syncope: No Arrhythmia: None Diabetes Mellitus: No Chronic Lung Disease: No Home Oxygen: No Hostile Chest: No Immunocompromised: No Myocardial Infarction: No Creatinine > 2: No Dialysis: Currently not on dialysis Left Ventricle EF: 60 on 11/24/2021 by Cath. LVEF at Discharge: 60.00 % *HISTORY OF ARTERIAL DISEASE* Peripheral Arterial Disease: No Cerebrovascular Disease: No TIA: No Stroke: No Carotid ASO: No Vertebral ASO: No Procedure Details: Blood Loss: < 30ml Specimen: No Specimen Obtained Recent PCI Failure of Treated Vessel: Contrast: Rad (more content not included)... Normal [facility] HISTORY PHYSICALon HISTORY PHYSICAL HNO ID: [id number] Author: Hai Hopson MD Service: Interventional Cardiology Author Type: Physician Type: HANDP Filed: 11/15/2021 8:06 AM Note Text: UPDATED HANDP PRE-CARDIAC CATHETERIZATION SERVICE DATE: 11/15/2021 SERVICE TIME: 8:04 PHYSICAL EXAM MUST BE COMPLETED ON ADMISSION The History and Physical (completed in the past 30 days) has been reviewed and the patient has been examined. The contents accurately reflect the patient's condition with the following additions or revisions since the HANDP was completed. Examination indicates no changes. Planned Procedure: Right and Left Heart Cath Primary Indication for Procedure: Angina Equivalent High Risk Features: History of Prior CABG: No History of Prior PCI: No Cardiomyopathy: No Anti-ischemic Meds in Past 2 Weeks: Beta blockers Ejection Fraction: 60% from Previous Echo Risk Appropriateness: Angina Class in Past 2 Weeks: Class III - Marked limitation of ordinary physical activity Cardiogenic Shock: NoHeart Failure: None Stress Test Performed: None EKG Assessment: Normal Family History of Premature CAD: Father, age 60 Evaluation for Preop Clearance: Non-Cardiac Surgery, Functional Capacity; >= 4 METS with symptoms, Surgical Risk; Low HISTORY OF BLEEDING: No This HANDP can be found in the attached. SIGNATURE: Hai Hopson MD PATIENT NAME: Marci Pinaz DATE: November 15, 2021 TIME: 8:04 AM Normal [facility] FRANKMARCI Lamb ([id number]) 1940 F [place] Date Time Provider Department 10/24/21 HAI HOPSON During your visit today, we recorded the following information about you: Denisha Hutchinson [facility] 10/24/2021 12:10 PM Signed Schedule C on 11/08/[address] Emiliana Valdez RN 10/24/2021 1:15 PM Signed Pt reports she does not have transportation 11/07, 11/08, 11/09 or 11/10. Any other days will work. ARON Alfaro [facility] 10/24/2021 2:36 PM [facility] Emiliana Vallecillo RN 11/14/2021 1:06 PM Addendum Patient scheduled for left heart cath, with Dr Hopson on 11/15/21. Instructions reviewed. Questions answered. Patient verbalized understanding. Instructions were as follows: -Arrive to [facility] HAND Entrance at time assigned by [facility] blood bank laboratory professional staff in phone call 11/14/21 PM. -Pt to increase po water intake day prior to heart cath. Pt may eat a light meal and drink clear liquids until 3 hours prior to procedure. -With a sip of water on 11/15/21 morning take: Aspirin 325 mg along with usual BP meds- carvedilol, lisinopril. Hold Metformin on 11/14/21 and 11/15/21. -Labs to be done by 11/04/21. Hold Metformin x 48 hours. - You must have someone drive you home from your procedure. -blood bank laboratory professional policy is pt not be alone first evening Office phone number provided for questions or concerns. Hyun Vallecillo RN Allergies As of Date: 10/24/2021 Noted Allergy Reaction CODEINE 10/02/2003 2 - Rash PENICILLINS 10/02/2003 2 - Rash PREDNISONE 10/02/2003 2 - Rash CELEBREX (CELECOXIB) 11/26/2004 16 - Unknown NIACIN 10/02/2003 2 - Rash SULFA (SULFONAMIDE ANTIBIOTICS) 10/02/2003 2 - Rash Date Reviewed: 10/24/2021 Reviewed by: Kim Umana RN - Fully Assessed Reason for Visit: Preparations For Procedures [899] Prescriptions as of 11/14/2021 - glimepiride (AMARYL) 4 mg tablet Take 1 tablet by mouth twice daily with meals. - lisinopril (ZESTRIL, PRINIVIL) 40 mg tablet Take 1 tablet by mouth once daily. - carvedilol (COREG) 3.125 mg tablet Take 1 tablet by mouth twice daily. - furosemide (LASIX) 80 mg tablet Take 0.5 tablets by mouth as needed. - pioglitazone (ACTOS) 30 mg tablet Take 1 tablet by mouth once daily. - amLODIPine (NORVASC) 2.5 mg tablet Take 1 tablet by mouth once daily. - pimecrolimus (ELIDEL) 1 % cream Apply to affected area twice daily. - lidocaine (LIDODERM) 5 % APPLY 1 PATCH TOPICALLY ONCE DAILY TO MOST PAINFUL AREA. LEAVE ON FOR 12 HOURS AND REMOVE FOR 12 HOURS. - metFORMIN (GLUCOPHAGE) 500 mg tablet Take by mouth. take 2 tabs w/breakfast;1 tab with lunch and TWO tabs w/ dinner - hydroCHLOROthiazide (HYDRODIURIL, ESIDRIX) 25 mg tablet Take 1 tablet by mouth once daily. - blood sugar diagnostic (BLOOD GLUCOSE TEST) test strip Test blood sugar(s) 2 times daily. Dx: Type 2 DM - Uncontrolled E11.65 Insulin: No - ibuprofen (MOTRIN) 200 mg tablet Take by mouth. - Lancets lancets Test blood sugar(s) 2 times daily. Dx: Type 2 DM - Uncontrolled E11.65 Insulin: No - nitroglycerin sublingual (NITROQUICK) 0.4 mg SL tablet Dissolve 1 tablet under the tongue as needed. FOR CHEST PAIN. IF NO RELIEF CALL 911 - omega-3 fatty acids 1,000 mg cap Take 2 capsules by mouth once daily. - Cholecalciferol, Vitamin D3, 2,000 unit cap Take 3 capsules by mouth once daily. - Blood Pressure Cuff - Home Use BLOOD PRESSURE CUFF FOR HOME USE. DX: LABILE BLOOD PRESSURE - ACETAMINOPHEN (TYLENOL ARTHRITIS ORAL) Take 1 tablet by mouth every 6 hours. 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*07/01/2007 Actinic Keratosis [L57.0] 02/26/2009 06/28/2009 Other Seborrheic Keratosis [L82.1] 02/26/2009 06/28/2009 Sun-Damaged Skin [L57.8] 02/26/2009 06/28/2009 Solar Lentigo [L81.4] 02/26/2009 06/28/2009 Scar Condition and Fibrosis of Skin [L90.5] 02/26/2009 06/28/2009 Personal history of other malignant neoplasm of*02/26/2009 Capillary Angioma [I78.1] 02/26/2009 06/28/2009 Xerosis Cutis [L85.3] 02/26/2009 06/28/2009 Venous Stasis [I87.8] 02/26/2009 06/28/2009 Osteopenia [M85.80] 04/24/2011 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)*07/07/2013 Essential hypertension [I10] 07/13/2014 Routine gynecological examination [Z01.419] 07/21/2014 Gastroesophageal reflux disease with esophagiti*04/23/2015 Skin cancer, basal cell [C44.91] 04/23/2015 Bilateral leg edema [R60.0] 05/31/2015 Vitamin D deficiency [E55.9] 11/26/2015 Aortic stenosis, mild [I35.0] 12/02/2015 Venous (peripheral) insufficiency [I87.2] 12/21/2015 Morbid obesity with BMI of 40.0-44.9, adult (HC*06/19/2016 Diabetic eye exam (HCC) (more content not included)... Normal [facility] Urinalysis complete panel (U )on 09-07-2021 Bilirubin Ql (U) Negative Negative [facility] Clarity (Unsp spec) Clear Clear [facility] Color (U) Light Yellow Yellow [facility] Epithelial cells LM.HPF (Urine sed) [#/Area] Few [facility] Glucose Test strip (U) [Mass/Vol] 3+ Abnormal Negative [facility] Hemoglobin Ql (U) Negative Negative [facility] Ketones Ql (U) Negative Negative [facility] Leukocyte esterase Test strip Ql (U) Trace Abnormal Negative [facility] Nitrite Ql (U) Negative Negative [facility] pH (U) 6.0 [pH] 5.0 - 8.0 [facility] Protein (U) [Mass/Vol] Negative Negative [facility] RBC LM.HPF (Urine sed) [#/Area] 0-3 /HPF 0-3 /HPF [facility] Specific gravity (U) [Rel density] 1.014 1.005 - 1.030 [facility] Urobilinogen Ql (U) Negative Negative [facility] WBC LM.HPF (Urine sed) [#/Area] 0-5 /HPF 0-5 /HPF [facility] PRE-PROCEDURE & PRE-OPERATIV E COVIDon 06-11-2021 SARS-CoV-2 (COVID-19) RNA MERCEDES+probe Ql (Resp) SARS-CoV-2 (Agent of COVID-19) Not Detected by RT-PCR or equivalent method. Not Detected [facility] XR Ribs - right Views and Ch est PAon 04-26-2021 IMPRESSION: No acute radiographic abnormality. Charging Plug Placer: [facility] Transcribe Date/Time: Apr 26 2021 6:12P Dictated by : SHAKIR LAL MD This examination was interpreted and the report reviewed and electronically signed by: SHAKIR LAL MD on Apr 26 2021 6:14PM EST DIVISION OF RADIOLOGY * * *Final Report* * * DATE OF EXAM: Apr 26 2021 6:09PM WOX 5244 - XR RIB/CHST 3V AP RIB/OBL/CHST R / PROCEDURE REASON: multiple diagnoses * * * * Physician Interpretation * * * * EXAMINATION: X-ray chest and right ribs Clinical History: Fall (on) (from) other stairs and steps, initial encounter Rib pain on right side M: XC1_4 Comparison: Chest x-ray 02/28/2013 RESULT: Lines, tubes, and devices: None. Lungs and pleura: No consolidation. No lung mass. No pleural effusion. Cardiomediastinal silhouette: Stable cardiomegaly mediastinal silhouette Musculoskeletal: No acute fracture DIVISION OF RADIOLOGY Provider, [facility] - 04/26/2021 * * *Final Report* * * DATE OF EXAM: Apr 26 2021 6:09PM WOX 5244 - XR RIB/CHST 3V AP RIB/OBL/CHST R / PROCEDURE REASON: multiple diagnoses * * * * Physician Interpretation * * * * EXAMINATION: X-ray chest and right ribs Clinical History: Fall (on) (from) other stairs and steps, initial encounter Rib pain on right side M: XC1_4 Comparison: Chest x-ray 02/28/2013 RESULT: Lines, tubes, and devices: None. Lungs and pleura: No consolidation. No lung mass. No pleural effusion. Cardiomediastinal silhouette: Stable cardiomegaly mediastinal silhouette Musculoskeletal: No acute fracture IMPRESSION IMPRESSION: No acute radiographic abnormality. Charging Plug Placer: [facility] Transcribe Date/Time: Apr 26 2021 6:12P Dictated by : SHAKIR LAL MD This examination was interpreted and the report reviewed and electronically signed by: SHAKIR LAL MD on Apr 26 2021 6:14PM EST [facility] Radiology Study observation (narrative) [facility] XR Ribs - right Views and Ch est PAOrdered By: Ccf Provider on 04-26-2021 [facility] Parth 03-24-2021 CNPN Telephone (AGCFM) FRANKMARCI ([id number]) 1940 F Date Time Provider Department 03/24/21 ARTURO AMAYA [facility] During your visit today, we recorded the following information about you: Arturo Amaya MD 03/24/2021 12:02 PM Signed Let patient know that her thyroid US dose show some nodules. Neither of them of concern and will need to just monitor with yearly US for about 5 yrs. Poonam Roman LPN 03/24/2021 12:04 PM Signed Attempted to contact pt. No answer and no vm. Will need to try again later. Poonam Roman LPN Ginny Quattrocchi RESEARCH DIETITIAN 03/24/2021 1:05 PM Signed Patient returned call and went over results, notes from Dr Amaya with understanding. Allergies As of Date: 03/24/2021 Noted Allergy Reaction CODEINE 10/02/2003 2 - Rash PENICILLINS 10/02/2003 2 - Rash PREDNISONE 10/02/2003 2 - Rash CELEBREX (CELECOXIB) 11/26/2004 16 - Unknown NIACIN 10/02/2003 2 - Rash SULFA (SULFONAMIDE ANTIBIOTICS) 10/02/2003 2 - Rash Date Reviewed: 03/21/2021 Reviewed by: Arturo Amaya MD - Fully Assessed Reason for Visit: Results [95] Visit Diagnosis:Multiple thyroid nodules [E04.2] Prescriptions as of 03/24/2021 - pioglitazone (ACTOS) 15 mg tablet Take 1 tablet by mouth once daily. - hydroCHLOROthiazide (HYDRODIURIL, ESIDRIX) 25 mg tablet Take 1 tablet by mouth once daily. - carvedilol (COREG) 3.125 mg tablet Take 1 tablet by mouth twice daily. - azithromycin (ZITHROMAX Z-SCOTT) 250 mg tablet Take 2 tablets day one, then, 1 tablet daily until gone. - glimepiride (AMARYL) 4 mg tablet Take 1 tablet by mouth twice daily with meals. - blood sugar diagnostic (BLOOD GLUCOSE TEST) test strip Test blood sugar(s) 2 times daily. Dx: Type 2 DM - Uncontrolled E11.65 Insulin: No - lisinopril (ZESTRIL, PRINIVIL) 40 mg tablet Take 1 tablet by mouth once daily. - furosemide (LASIX) 80 mg tablet Take by mouth as needed. - ibuprofen (MOTRIN) 200 mg tablet Take by mouth. - metFORMIN (GLUCOPHAGE) 500 mg tablet Take by mouth. take 2 tabs w/breakfast;1 tab with lunch and TWO tabs w/ dinner - Lancets lancets Test blood sugar(s) 2 times daily. Dx: Type 2 DM - Uncontrolled E11.65 Insulin: No - nitroglycerin sublingual (NITROQUICK) 0.4 mg SL tablet Dissolve 1 tablet under the tongue as needed. FOR CHEST PAIN. IF NO RELIEF CALL 911 - omega-3 fatty acids 1,000 mg cap Take 2 capsules by mouth once daily. - Cholecalciferol, Vitamin D3, 2,000 unit cap Take 3 capsules by mouth once daily. - Blood Pressure Cuff - Home Use BLOOD PRESSURE CUFF FOR HOME USE. DX: LABILE BLOOD PRESSURE - ACETAMINOPHEN (TYLENOL ARTHRITIS ORAL) Take 1 tablet by mouth every 6 hours. 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*07/01/2007 Actinic Keratosis [L57.0] 02/26/2009 06/28/2009 Other Seborrheic Keratosis [L82.1] 02/26/2009 06/28/2009 Sun-Damaged Skin [L57.8] 02/26/2009 06/28/2009 Solar Lentigo [L81.4] 02/26/2009 06/28/2009 Scar Condition and Fibrosis of Skin [L90.5] 02/26/2009 06/28/2009 Personal history of other malignant neoplasm of*02/26/2009 Capillary Angioma [I78.1] 02/26/2009 06/28/2009 Xerosis Cutis [L85.3] 02/26/2009 06/28/2009 Venous Stasis [I87.8] 02/26/2009 06/28/2009 Osteopenia [M85.80] 04/24/2011 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)*07/07/2013 Essential hypertension [I10] 07/13/2014 Routine gynecological examination [Z01.419] 07/21/2014 Gastroesophageal reflux disease with esophagiti*04/23/2015 Skin cancer, basal cell [C44.91] 04/23/2015 Bilateral leg edema [R60.0] 05/31/2015 Vitamin D deficiency [E55.9] 11/26/2015 Aortic stenosis, mild [I35.0] 12/02/2015 Venous (peripheral) insufficiency [I87.2] 12/21/2015 Morbid obesity with BMI of 40.0-44.9, adult (HC*06/19/2016 Diabetic eye exam (HCC) [Z01.00, E11.9] 08/21/2016 Corns and callus [L84] 09/18/2016 Current use of proton pump inhibitor [Z79.899] 04/19/2017 Screening for colon cancer [Z12.11] 07/03/2017 Sebaceous cyst [L72.3] 07/03/2017 Elevated serum GGT level [R74.8] 07/03/2017 Microscopic hematuria [R31.29] 08/28/2018 Elevated alkaline phosphatase level [R74.8] 08/28/2018 Cardiac arrhythmia [I49.9] 11/08/2018 Uncontrolled type 2 diabetes mellitus with hype*01/02/2020 Adjustment disorder with depressed mood [F43.21]01/19/2020 SAMEER (generalized anxiety disorder) [F41.1] 01/19/2020 Medicare annual wellness visit, subsequent [Z00*03/21/2021 Foot callus [L84] 03/21/2021 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 Ages 30-39 = 107 mL/min/1.73 sq.m. Ages 40-49 = 99 mL/min/1.73 sq.m. Ages 50-59 = 93 mL/min/1.73 sq.m. Ages 60-69 = 85 mL/min/1.73 sq.m. Ages 70+ = 75 mL/min/1.73 sq.m.Chronic Kidney Disease: Less than 60 mL/min/1.73 square metersEnd Stage Renal Disease: Less than 15 mL/min/1.73 square meters Performed By: #### C BC, ADIFF, ANEU, TROP, GFR, BMP ####[address] [place], [place] [address] eGFR (non-black) 73 ml/min/1.73sqm Normal A [facility] ([place]) Comment on above: Result Comment: GFR Population mean for , Non- Americans Ages 20-29 = 116 mL/min/1.73 sq.m. Ages 30-39 = 107 mL/min/1.73 sq.m. Ages 40-49 = 99 mL/min/1.73 sq.m. Ages 50-59 = 93 mL/min/1.73 sq.m. Ages 60-69 = 85 mL/min/1.73 sq.m. Ages 70+ = 75 mL/min/1.73 sq.m.Chronic Kidney Disease: Less than 60 mL/min/1.73 square metersEnd Stage Renal Disease: Less than 15 mL/min/1.73 square meters Performed By: #### C BC, ADIFF, ANEU, TROP, GFR, BMP ####[address] [place], [place] [address] BMPon 01-19-2017 Glucose mass conc 161 mg/dL High 83-110 [facility] ([place]) Comment on above: Performed By: #### C BC, ADIFF, ANEU, TROP, GFR, BMP ####[address] [place], [place] [address] BUN/Creatinine Ratio 22 ratio Normal 7-27 [facility] ([place]) Comment on above: Performed By: #### C BC, ADIFF, ANEU, TROP, GFR, BMP ####[address] [place], [place] [address] Calcium 9.7 mg/dL Normal 8.4-10.2 [facility] ([place]) Comment on above: Performed By: #### C BC, ADIFF, ANEU, TROP, GFR, BMP ####[address] [place], [place] [address] Chloride 104 mmol/L Normal 98-107 [facility] ([place]) Comment on above: Performed By: #### C BC, ADIFF, ANEU, TROP, GFR, BMP ####[address] [place], [place] [address] CO2 28 mmol/L Normal 23-31 [facility] ([place]) Comment on above: Performed By: #### C BC, ADIFF, ANEU, TROP, GFR, BMP ####[place] [address] [place], [place] [address] Creatinine 0.9 mg/dL Normal 0.6-1.2 [facility] ([place]) Comment on above: Performed By: #### C BC, ADIFF, ANEU, TROP, GFR, BMP ####[place] [address] [place], [place] [address] Electrolyte Balance 6.0 mEq/L Normal [facility] ([place]) Comment on above: Performed By: #### C BC, ADIFF, ANEU, TROP, GFR, BMP ####[place] [address] [place], [place] [address] Potassium molar conc 3.8 mmol/L Normal 3.5-5.1 [facility] ([place]) Comment on above: Performed By: #### C BC, ADIFF, ANEU, TROP, GFR, BMP ####[place] [address] [place] [id number] Sodium 138 mmol/L Normal 136-146 [facility] ([place]) Comment on above: Performed By: #### C BC, ADIFF, ANEU, TROP, GFR, BMP ####[facility] [place], [place] [address] Urea nitrogen 20.1 mg/dL High 7.0-18.0 [facility] ([place]) Comment on above: Performed By: #### C BC, ADIFF, ANEU, TROP, GFR, BMP ####[address] [place], [place] [id number] [place] [address] Emergency Room Note on 01-19-2017 [place] [facility] Note Normal [facility] ([place]) Patient Summary Documentson 01-19-2017 Patient Summary Documents Normal [facility] ([place]) XR CHEST 1 VIEWon 01-19-2017 XR CHEST 1 VIEW ORIGINALXR CHEST 1 V IEW PORTABLE UPRIGHT AP TIME: 9:56 PM Clinical Statement: chest pain Comparison: None Findings: The heart is prominent in size. There is no focal consolidation, vascular congestion, pleural effusion, or pneumothorax. No acute osseous abnormality. IMPRESSION: No acute radiographic finding. I have personally reviewed the images of this examination and agree with the resident's findings and interpretation. Interpreted By: Jerrod Napier MDPreliminary Report By: Ashley Chao DOElectronically Signed By: Jerrod Napier MD Dictated Date: 01/18/2017 10:08:01 PM Prelim Date: 01/18/2017 10:08:56 PM Sign Date: 01/18/2017 10:30:55 PM Normal [facility] ([place]) .Auto Diffon 01-18-2017 Basophils Auto #/vol (Bld) 0.20 10 3/mcL High 0.00-0.19 [facility] ([place]) Comment on above: Performed By: #### C BC, ADIFF, ANEU, TROP, GFR, BMP ####[address] [place], [place] [address] Basophils/100 WBC Auto (Bld) 1.7 % Normal 0.0-2.5 [facility] ([place]) Comment on above: Performed By: #### C BC, ADIFF, ANEU, TROP, GFR, BMP ####[address] [place], [place] [address] Eosinophils 0.30 10 3/mcL Normal 0.00-0.40 [facility] ([place]) Comment on above: Performed By: #### C BC, ADIFF, ANEU, TROP, GFR, BMP ####[address] [place], [place] [address] Eosinophils/100 leukocytes 3.5 % Normal 0.0-7.0 [facility] ([place]) Comment on above: Performed By: #### C BC, ADIFF, ANEU, TROP, GFR, BMP ####[address] [place], [place] [address] Lymphocytes 3.90 10 3/mcL High 0.77-3.85 [facility] ([place]) Comment on above: Performed By: #### C BC, ADIFF, ANEU, TROP, GFR, BMP ####[address] [place], [place] [address] Lymphocytes/100 leukocytes 42.4 % Normal 10.0-50.0 [facility] ([place]) Comment on above: Performed By: #### C BC, ADIFF, ANEU, TROP, GFR, BMP ####[address] [place], [place] [address] Monocytes 0.60 10 3/mcL Normal 0.15-1.00 [facility] ([place]) Comment on above: Performed By: #### C BC, ADIFF, ANEU, TROP, GFR, BMP ####[address] [place], [place] [address] Monocytes/100 leukocytes 6.8 % Normal 1.7-13.0 [facility] ([place]) Comment on above: Performed By: #### C BC, ADIFF, ANEU, TROP, GFR, BMP ####[address] [place], [place] [address] Neutrophils/100 WBC Auto (Bld) 45.6 % Normal 37.0-80.0 [facility] ([place]) Comment on above: Performed By: #### C BC, ADIFF, ANEU, TROP, GFR, BMP ####[address] [place], [place] [address] .NEUABSon 01-18-2017 Neutrophils 4.20 10 3/mcL Normal 2.85-6.16 [facility] ([place]) Comment on above: Performed By: #### C BC, ADIFF, ANEU, TROP, GFR, BMP ####[address] [place], [place] [address] CBCon 01-18-2017 Erythrocyte distribution width Auto Ratio (RBC) 13.5 % Normal 11.5-14.5 [facility] ([place]) Comment on above: Performed By: #### C BC, ADIFF, ANEU, TROP, GFR, BMP ####[address] [place], [place] [address] Erythrocytes (RBC) 4.32 10 6/mcL Normal 4.20-5.40 [facility] ([place]) Comment on above: Performed By: #### C BC, ADIFF, ANEU, TROP, GFR, BMP ####[address] [place], [place] [address] Hematocrit (HCT) 41.0 % Normal 37.0-47.0 [facility] ([place]) Comment on above: Performed By: #### C BC, ADIFF, ANEU, TROP, GFR, BMP ####[address] [place] [id number] Hemoglobin mass conc (Bld) 13.9 G/dL Normal 12.0-16.0 [facility] ([place]) Comment on above: Performed By: #### C BC, ADIFF, ANEU, TROP, GFR, BMP ####[address] [place] [id number] MCH 32.3 pg High 27.0-31.2 [facility] ([place]) Comment on above: Performed By: #### C BC, ADIFF, ANEU, TROP, GFR, BMP ####[address] [place] [address] MCHC mass conc (RBC) 34.1 G/dL Normal 33.0-37.0 [facility] ([place]) Comment on above: Performed By: #### C BC, ADIFF, ANEU, TROP, GFR, BMP ####[address] [place] [id number] MCV 94.7 fL High 80.0-94.0 [facility] ([place]) Comment on above: Performed By: #### C BC, ADIFF, ANEU, TROP, GFR, BMP ####[address] [place] [id number] Platelet mean volume (PMV) 9.4 fL Normal 7.4-10.4 [facility] ([place]) Comment on above: Performed By: #### C BC, ADIFF, ANEU, TROP, GFR, BMP ####[address] [place], [place] [address] Platelets 150 10 3/mcL Normal 130-400 [facility] ([place]) Comment on above: Performed By: #### C BC, ADIFF, ANEU, TROP, GFR, BMP ####[address] [place], [place] [address] WBC (Leukocytes) 9.10 10 3/mcL Normal 4.60-10.80 [facility] ([place]) Comment on above: Performed By: #### C BC, ADIFF, ANEU, TROP, GFR, BMP ####[address] [place], [place] [address] TROPon 01-18-2017 Troponin I.cardiac mass conc ng/mL Normal 0.00-0.30 [facility] ([place]) Comment on above: Result Comment: Belo w measuring range>=0.30 Consistent with cardiac damage, increased clinical risk and possibility of myocardial infarction. Serial measurements, clinical history, appropriate symptoms and/or ECG changes may help assess possibility of SD.*Other non-acute coronary syndrome conditions such as CHF, myocarditis, pulmonary emboli, sepsis and cardiac surgery could result in myocardial damage and increased troponin levels. Performed By: #### C BC, ADIFF, ANEU, TROP, GFR, BMP ####[address] [place], [place] [address] Vital Signs Date Time Vital Sign Value Performing Clinician Facility 10-29-2024 11:19040 Body height 167.[address] Arturo Amaya MD Work Phone: [facility] 10-29-2024 11:19040 Body mass index (BMI) [Ratio] 38.7 kg/m2 Dr. Arturo Amaya MD Work Phone: [facility] 10-29-2024 11:040 Body weight 108.[address] Arturo Aamya MD Work Phone: [facility] 10-29-2024 11:19-040 Diastolic blood pressure 70 mm[Hg] Dr. Arturo Amaya MD Work Phone: [facility] 10-29-2024 11:19-0400 Heart rate 84 /min Dr. Arturo Amaya MD Work Phone: [facility] 10-29-2024 11:19-0400 Respiratory rate 20 /min Dr. Arturo Amaya MD Work Phone: [facility] 10-29-2024 11:19-0400 SaO2% (BldA) [Mass fraction] 97 % Dr. Arturo Amaya MD Work Phone: [facility] 10-29-2024 11:19-0400 Systolic blood pressure 133 mm[Hg] Dr. Arturo Amaya MD Work Phone: [facility] 10-21-2024 13:00-0400 Body mass index (BMI) [Ratio] 40.04 kg/m2 Sharona Bettencourt PA-C Work Phone: [facility] 10-21-2024 13:00-0400 Body temperature 97.39 [degF] Sharona Bettencourt PA-C Work Phone: [facility] 10-21-2024 13:00-0400 Body weight 107.05 kg Sharona Bettencourt PA-C Work Phone: [facility] 10-21-2024 13:00-0400 Diastolic blood pressure 76 mm[Hg] Sharona Bettencourt PA-C Work Phone: [facility] 10-21-2024 13:00-0400 Heart rate 81 /min Sharona Bettencourt PA-C Work Phone: [facility] 10-21-2024 13:00-0400 Respiratory rate 18 /min Sharona Bettencourt PA-C Work Phone: [facility] 10-21-2024 13:00-0400 SaO2% (BldA) [Mass fraction] 96 % Sharona Bettencourt PA-C Work Phone: [facility] 10-21-2024 13:00-0400 Systolic blood pressure 130 mm[Hg] Sharona Bettencourt PA-C Work Phone: [facility] 09-23-2024 15:12-0400 Body mass index (BMI) [Ratio] 39.28 kg/m2 Rasheed Chin DIRECTOR VIDEO.DIESEL MAINTENANCE TECHNICIAN Work Phone: [facility] 09-23-2024 15:12-0400 Body weight 105 kg Rasheed Chin DIRECTOR VIDEO.DIESEL MAINTENANCE TECHNICIAN Work Phone: [facility] 09-23-2024 15:12-0400 Diastolic blood pressure 75 mm[Hg] Rasheed Chin DIRECTOR VIDEO.DIESEL MAINTENANCE TECHNICIAN Work Phone: [facility] 09-23-2024 15:12-0400 Heart rate 80 /min Rasheed Chin DIRECTOR VIDEO.DIESEL MAINTENANCE TECHNICIAN Work Phone: [facility] 09-23-2024 15:12-0400 Systolic blood pressure 166 mm[Hg] Rasheed Chin DIRECTOR VIDEO.DIESEL MAINTENANCE TECHNICIAN Work Phone: [facility] 09-10-2024 09:06-0400 Body mass index (BMI) [Ratio] 38.86 kg/m2 Sharona Bettencourt PA-C Work Phone: [facility] 09-10-2024 09:06-0400 Body temperature 97.5 [degF] Sharona Bettencourt PA-C Work Phone: [facility] 09-10-2024 09:06-0400 Body weight 103.87 kg Sharona Bettencourt PA-C Work Phone: [facility] 09-10-2024 09:06-0400 Diastolic blood pressure 67 mm[Hg] Sharona Bettencourt PA-C Work Phone: [facility] 09-10-2024 09:06-0400 Heart rate 76 /min Sharona Bettencourt PA-C Work Phone: [facility] 09-10-2024 09:06-0400 Respiratory rate 18 /min Sharona Bettencourt PA-C Work Phone: [facility] 09-10-2024 09:06-0400 SaO2% (BldA) [Mass fraction] 96 % Sharona Bettencourt PA-C Work Phone: [facility] 09-10-2024 09:06-0400 Systolic blood pressure 117 mm[Hg] Sharona Bettencourt PA-C Work Phone: 0(061)428-909240 [place] [address] 08-21-2024 11:41-0400 Body temperature 98.3 [degF] Dr. Arturo Amaya MD Work Phone: 5(411)957-238105 [place] [address] 08-21-2024 11:41-0400 Diastolic blood pressure 80 mm[Hg] Dr. Arturo Amaya MD Work Phone: 1(207)601-652605 [place] [address] 08-21-2024 11:41-0400 Heart rate 84 /min Dr. Arturo Amaya MD Work Phone: 1(705)576-395305 [place] [address] 08-21-2024 11:41-0400 Respiratory rate 16 /min Dr. Arturo Amaya MD Work Phone: 3(646)636-654205 [place] [address] 08-21-2024 11:41-0400 SaO2% (BldA) [Mass fraction] 96 % Dr. Arturo Amaya MD Work Phone: 0(039)254-573505 [place] [address] 08-21-2024 11:41-0400 Systolic blood pressure 130 mm[Hg] Dr. Arturo Amaya MD Work Phone: 4(409)571-284905 [place] [address] 08-21-2024 08:30-0400 Body mass index (BMI) [Ratio] 36.9 kg/m2 Dr. Arturo Amaya MD Work Phone: 6(685)154-680005 [place] [address] 08-21-2024 08:30-0400 Body weight 103.[address] Arturo Amaya MD Work Phone: 3(184)211-743505 [place] [address] 06-16-2024 17:33-0400 Body temperature 97.3 [degF] Dr. Arturo Amaya MD Work Phone: 5(125)002-885205 [place] [address] 06-16-2024 17:33-0400 Diastolic blood pressure 85 mm[Hg] Dr. Arturo Amaya MD Work Phone: 7(728)268-438305 [place] [address] 06-16-2024 17:33-0400 Heart rate 74 /min Dr. Arturo Amaya MD Work Phone: 1(199)380-164905 [place] [address] 06-16-2024 17:33-0400 Respiratory rate 18 /min Dr. Arturo Amaya MD Work Phone: [facility] 06-16-2024 17:33-0400 SaO2% (BldA) [Mass fraction] 97 % Dr. Arturo Amaya MD Work Phone: [facility] 06-16-2024 17:33-0400 Systolic blood pressure 174 mm[Hg] Dr. Arturo Amaya MD Work Phone: [facility] 06-16-2024 14:09-0400 Body height 167.[address] Arturo Amaya MD Work Phone: [facility] 06-16-2024 14:09-0400 Body mass index (BMI) [Ratio] 36.6 kg/m2 Dr. Arturo Amaya MD Work Phone: [facility] 06-16-2024 14:09-0400 Body weight 102.[address] Arturo Amaya MD Work Phone: [facility] 06-11-2024 10:55-0400 Body mass index (BMI) [Ratio] 38.59 kg/m2 Christa Cioce DIRECTOR VIDEO.DIESEL MAINTENANCE TECHNICIAN Work Phone: [facility] 06-11-2024 10:55-0400 Body temperature 97.59 [degF] Christa Cioce DIRECTOR VIDEO.DIESEL MAINTENANCE TECHNICIAN Work Phone: [facility] 06-11-2024 10:55-0400 Body weight 103.15 kg Christa Cioce DIRECTOR VIDEO.DIESEL MAINTENANCE TECHNICIAN Work Phone: [facility] 06-11-2024 10:55-0400 Diastolic blood pressure 84 mm[Hg] Christa Cioce DIRECTOR VIDEO.DIESEL MAINTENANCE TECHNICIAN Work Phone: [facility] 06-11-2024 10:55-0400 Heart rate 81 /min Christa Cioce DIRECTOR VIDEO.DIESEL MAINTENANCE TECHNICIAN Work Phone: [facility] 06-11-2024 10:55-0400 SaO2% (BldA) [Mass fraction] 95 % Christa Cioce DIRECTOR VIDEO.DIESEL MAINTENANCE TECHNICIAN Work Phone: [facility] 06-11-2024 10:55-0400 Systolic blood pressure 140 mm[Hg] Christa Cioce DIRECTOR VIDEO.DIESEL MAINTENANCE TECHNICIAN Work Phone: [facility] 05-14-2024 12:52-0500 Diastolic blood pressure 68 mm[Hg] Sharona Bettencourt PA-C Work Phone: [facility] 05-14-2024 12:52-0500 Systolic blood pressure 136 mm[Hg] Sharona Bettencourt PA-C Work Phone: [facility] 05-14-2024 12:39-0500 Heart rate 72 /min Sharona Bettencourt PA-C Work Phone: [facility] 05-14-2024 12:26-0500 Body mass index (BMI) [Ratio] 38.52 kg/m2 Sharona Bettencourt PA-C Work Phone: [facility] 05-14-2024 12:26-0500 Body temperature 97.11 [degF] Sharona Bettencourt PA-C Work Phone: [facility] 05-14-2024 12:26-0500 Body weight 102.97 kg Sharona Bettencourt PA-C Work Phone: [facility] 05-14-2024 12:26-0500 Respiratory rate 18 /min Sharona Bettencourt PA-C Work Phone: [facility] 05-14-2024 12:26-0500 SaO2% (BldA) [Mass fraction] 98 % Sharona Bettencourt PA-C Work Phone: [facility] 04-29-2024 11:44-0500 Body temperature 97.9 [degF] Sharona Bettencourt PA-C Work Phone: [facility] 04-29-2024 11:44-0500 Diastolic blood pressure 63 mm[Hg] Sharona Bettencourt PA-C Work Phone: [facility] 04-29-2024 11:44-0500 Heart rate 82 /min Sharona ACHARYA-C Work Phone: [facility] 04-29-2024 11:44-0500 Respiratory rate 18 /min Sharona ACHARYA-C Work Phone: [facility] 04-29-2024 11:44-0500 Systolic blood pressure 157 mm[Hg] Sharona ACHARYA-C Work Phone: 4(410)113-783840 [place] [address] 04-22-2024 23:42-0500 Body temperature 97.9 [degF] Dr. Arturo Amaya MD Work Phone: 7(008)325-584705 [place] [address] 04-22-2024 23:42-0500 Diastolic blood pressure 66 mm[Hg] Dr. Arturo Amaya MD Work Phone: 9(521)851-169605 [place] [address] 04-22-2024 23:42-0500 Heart rate 80 /min Dr. Arturo Amaya MD Work Phone: 7(964)154-156605 [place] [address] 04-22-2024 23:42-0500 Respiratory rate 14 /min Dr. Arturo Amaya MD Work Phone: 5(823)916-815305 [place] [address] 04-22-2024 23:42-0500 SaO2% (BldA) [Mass fraction] 99 % Dr. Arturo Amaya MD Work Phone: 6(937)546-874505 [place] [address] 04-22-2024 23:42-0500 Systolic blood pressure 158 mm[Hg] Dr. Arturo Amaya MD Work Phone: 3(889)344-698805 [place] [address] 04-22-2024 21:35-0500 Body mass index (BMI) [Ratio] 36.3 kg/m2 Dr. Arturo Amaya MD Work Phone: 7(670)086-222412 [place] [address] 04-22-2024 21:35-0500 Body weight 102.[address] Arturo Amaya MD Work Phone: 8(646)235-990405 [place] [address] 04-15-2024 11:42-0500 Body height 163.5 cm Sharona Bettencourt PA-C Work Phone: 0(969)575-001740 [place] [address] 04-15-2024 11:42-0500 Body mass index (BMI) [Ratio] 36.65 kg/m2 Sharona Bettencourt PA-C Work Phone: [facility] 04-15-2024 11:42-0500 Body temperature 97.11 [degF] Sharona Bettencourt PA-C Work Phone: [facility] 04-15-2024 11:42-0500 Body weight 97.98 kg Sharona Bettencourt PA-C Work Phone: [facility] 04-15-2024 11:42-0500 Diastolic blood pressure 90 mm[Hg] Sharona Bettencourt PA-C Work Phone: [facility] 04-15-2024 11:42-0500 Heart rate 85 /min Sharona Bettencourt PA-C Work Phone: [facility] 04-15-2024 11:42-0500 Respiratory rate 18 /min Sharona Bettencourt PA-C Work Phone: [facility] 04-15-2024 11:42-0500 SaO2% (BldA) [Mass fraction] 99 % Sharona Bettencourt PA-C Work Phone: [facility] 04-15-2024 11:42-0500 Systolic blood pressure 166 mm[Hg] Sharona Bettencourt PA-C Work Phone: [facility] 03-29-2024 15:09-0500 Body mass index (BMI) [Ratio] 35.23 kg/m2 Kim Clutter PA-C Work Phone: [facility] 03-29-2024 15:09-0500 Body temperature 97.39 [degF] Kim Clutter PA-C Work Phone: [facility] 03-29-2024 15:09-0500 Body weight 99 kg Kim Clutter PA-C Work Phone: [facility] 03-29-2024 15:09-0500 Diastolic blood pressure 85 mm[Hg] Kim Clutter PA-C Work Phone: [facility] [facility] 03-29-2024 15:09-0500 Heart rate 85 /min Kim Clutter PA-C Work Phone: [facility] 03-29-2024 15:09-0500 Respiratory rate 24 /min Kim Clutter PA-C Work Phone: [facility] 03-29-2024 15:09-0500 SaO2% (BldA) [Mass fraction] 96 % Kim Clutter PA-C Work Phone: [facility] 03-29-2024 15:09-0500 Systolic blood pressure 154 mm[Hg] Kim Clutter PA-C Work Phone: [facility] 12-21-2023 14:16-0400 Body mass index (BMI) [Ratio] 37.18 kg/m2 Monica Parrish APRN.DIESEL MAINTENANCE TECHNICIAN Work Phone: [facility] 12-21-2023 14:16-0400 Body temperature 98.2 [degF] Monica Parrish APRN.DIESEL MAINTENANCE TECHNICIAN Work Phone: [facility] 12-21-2023 14:16-0400 Body weight 104.5 kg Monica Parrish APRN.DIESEL MAINTENANCE TECHNICIAN Work Phone: [facility] 12-21-2023 14:16-0400 Diastolic blood pressure 103 mm[Hg] Monica Parrish APRN.DIESEL MAINTENANCE TECHNICIAN Work Phone: [facility] 12-21-2023 14:16-0400 Heart rate 60 /min Monica Parrish APRN.DIESEL MAINTENANCE TECHNICIAN Work Phone: [facility] 12-21-2023 14:16-0400 Respiratory rate 18 /min Monica Parrish APRN.DIESEL MAINTENANCE TECHNICIAN Work Phone: [facility] 12-21-2023 14:16-0400 SaO2% (BldA) [Mass fraction] 95 % Monica Parrish APRN.DIESEL MAINTENANCE TECHNICIAN Work Phone: [facility] 12-21-2023 14:16-0400 Systolic blood pressure 169 mm[Hg] Monica Parrish APRN.DIESEL MAINTENANCE TECHNICIAN Work Phone: [facility] 11-17-2023 15:11-0400 Body mass index (BMI) [Ratio] 37.61 kg/m2 Monica Parrish APRN.DIESEL MAINTENANCE TECHNICIAN Work Phone: [facility] 11-17-2023 15:11-0400 Body temperature 98.29 [degF] Monica Parrish APRN.DIESEL MAINTENANCE TECHNICIAN Work Phone: [facility] 11-17-2023 15:11-0400 Body weight 105.7 kg Monica Parrish APRN.DIESEL MAINTENANCE TECHNICIAN Work Phone: [facility] 11-17-2023 15:11-0400 Diastolic blood pressure 76 mm[Hg] Monica Parrish APRN.DIESEL MAINTENANCE TECHNICIAN Work Phone: [facility] 11-17-2023 15:11-0400 Heart rate 78 /min Monica Parrish APRN.DIESEL MAINTENANCE TECHNICIAN Work Phone: [facility] 11-17-2023 15:11-0400 Respiratory rate 18 /min Monica Parrish APRN.DIESEL MAINTENANCE TECHNICIAN Work Phone: [facility] 11-17-2023 15:11-0400 SaO2% (BldA) [Mass fraction] 96 % Monica Parrish APRN.DIESEL MAINTENANCE TECHNICIAN Work Phone: [facility] 11-17-2023 15:11-0400 Systolic blood pressure 155 mm[Hg] Monica Parrish APRN.DIESEL MAINTENANCE TECHNICIAN Work Phone: [facility] 08-29-2023 14:45-0400 Body mass index (BMI) [Ratio] 35.19 kg/m2 Arturo Amaya MD Work Phone: [facility] 08-29-2023 14:45-0400 Body weight 98.88 kg Arturo Amaya MD Work Phone: [facility] 08-29-2023 14:45-0400 Diastolic blood pressure 76 mm[Hg] Arturo Amaya MD Work Phone: [facility] 08-29-2023 14:45-0400 Heart rate 81 /min Arturo Amaya MD Work Phone: [facility] 08-29-2023 14:45-0400 Respiratory rate 18 /min Arturo Amaya MD Work Phone: [facility] 08-29-2023 14:45-0400 SaO2% (BldA) [Mass fraction] 98 % Arturo Amaya MD Work Phone: [facility] 08-29-2023 14:45-0400 Systolic blood pressure 152 mm[Hg] Arturo Amaya MD Work Phone: [facility] 08-20-2023 13:13-0400 Body mass index (BMI) [Ratio] 34.06 kg/m2 Arturo Amaya MD Work Phone: [facility] 08-20-2023 13:13-0400 Body weight 95.71 kg Arturo Amaya MD Work Phone: [facility] 08-20-2023 13:13-0400 Diastolic blood pressure 90 mm[Hg] Arturo Amaya MD Work Phone: [facility] 08-20-2023 13:13-0400 Heart rate 76 /min Arturo Amaya MD Work Phone: [facility] 08-20-2023 13:13-0400 Respiratory rate 16 /min Arturo Amaya MD Work Phone: [facility] 08-20-2023 13:13-0400 Systolic blood pressure 150 mm[Hg] Arturo Amaya MD Work Phone: [facility] 08-12-2023 16:22-0400 Body temperature 98.6 [degF] [facility] 08-12-2023 16:22-0400 Diastolic blood pressure 109 mm[Hg] [facility] 08-12-2023 16:22-0400 Heart rate 98 /min [facility] 08-12-2023 16:22-0400 Respiratory rate 22 /min [facility] 08-12-2023 16:22-0400 SaO2% (BldA) [Mass fraction] 97 % [facility] 08-12-2023 16:22-0400 Systolic blood pressure 163 mm[Hg] [facility] 08-12-2023 12:01-0400 Body mass index (BMI) [Ratio] 33.5 kg/m2 [facility] 08-12-2023 12:01-0400 Body weight 94.5 kg [facility] 08-12-2023 11:59-0400 Body height 167.64 cm [facility] 08-10-2023 17:51-0400 Body mass index (BMI) [Ratio] 33.66 kg/m2 Joe Craft DIRECTOR VIDEO.DIESEL MAINTENANCE TECHNICIAN Work Phone: [facility] 08-10-2023 17:51-0400 Body temperature 98.2 [degF] Joe Craft DIRECTOR VIDEO.DIESEL MAINTENANCE TECHNICIAN Work Phone: [facility] 08-10-2023 17:51-0400 Body weight 94.6 kg Joe Craft DIRECTOR VIDEO.DIESEL MAINTENANCE TECHNICIAN Work Phone: [facility] 08-10-2023 17:51-0400 Diastolic blood pressure 84 mm[Hg] Joe Craft DIRECTOR VIDEO.DIESEL MAINTENANCE TECHNICIAN Work Phone: [facility] 08-10-2023 17:51-0400 Heart rate 106 /min Joe Craft DIRECTOR VIDEO.DIESEL MAINTENANCE TECHNICIAN Work Phone: [facility] 08-10-2023 17:51-0400 Respiratory rate 8 /min Joe Craft DIRECTOR VIDEO.DIESEL MAINTENANCE TECHNICIAN Work Phone: [facility] 08-10-2023 17:51-0400 SaO2% (BldA) [Mass fraction] 98 % Joe Craft DIRECTOR VIDEO.DIESEL MAINTENANCE TECHNICIAN Work Phone: [facility] 08-10-2023 17:51-0400 Systolic blood pressure 162 mm[Hg] Joe Craft DIRECTOR VIDEO.DIESEL MAINTENANCE TECHNICIAN Work Phone: [facility] 12-07-2022 02:31-0400 Diastolic blood pressure 89 mm[Hg] [facility] 12-07-2022 02:31-0400 Heart rate 87 /min [facility] 12-07-2022 02:31-0400 Respiratory rate 18 /min [facility] 12-07-2022 02:31-0400 SaO2% (BldA) [Mass fraction] 98 % [facility] 12-07-2022 02:31-0400 Systolic blood pressure 169 mm[Hg] [facility] 12-06-2022 23:30-0400 Body height 167.64 cm [facility] 12-06-2022 23:30-0400 Body mass index (BMI) [Ratio] 40.1 kg/m2 [facility] 12-06-2022 23:30-0400 Body temperature 97.6 [degF] [facility] 12-06-2022 23:30-0400 Body weight 112.9 kg [facility] 12-05-2022 16:51-0400 Body temperature 98.8 [degF] Azra Athy PA-C Work Phone: [facility] 12-05-2022 16:51-0400 Body weight 111.22 kg Azra Athy PA-C Work Phone: [facility] 12-05-2022 16:51-0400 Diastolic blood pressure 84 mm[Hg] Azra Athy PA-C Work Phone: [facility] 12-05-2022 16:51-0400 Heart rate 84 /min Azra Athy PA-C Work Phone: [facility] 12-05-2022 16:51-0400 Respiratory rate 18 /min Azra Athy PA-C Work Phone: [facility] 12-05-2022 16:51-0400 SaO2% (BldA) [Mass fraction] 94 % Azra Athy PA-C Work Phone: [facility] 12-05-2022 16:51-0400 Systolic blood pressure 136 mm[Hg] Azra Athy PA-C Work Phone: [facility] 11-14-2022 23:27-0400 Body mass index (BMI) [Ratio] 40.4 kg/m2 [facility] 11-14-2022 23:27-0400 Body weight 113.5 kg [facility] 11-14-2022 23:09-0400 Body height 167.64 cm [facility] 11-14-2022 23:09-0400 Body temperature 96.8 [degF] [facility] 11-14-2022 23:09-0400 Diastolic blood pressure 91 mm[Hg] [facility] 11-14-2022 23:09-0400 Heart rate 74 /min [facility] 11-14-2022 23:09-0400 Respiratory rate 15 /min [facility] 11-14-2022 23:09-0400 SaO2% (BldA) [Mass fraction] 95 % [facility] 11-14-2022 23:09-0400 Systolic blood pressure 183 mm[Hg] [facility] 11-07-2022 13:27-0400 Body mass index (BMI) [Ratio] 39.7 kg/m2 [facility] 11-07-2022 13:27-0400 Body temperature 96.1 [degF] [facility] 11-07-2022 13:27-0400 Diastolic blood pressure 81 mm[Hg] [facility] 11-07-2022 13:27-0400 Heart rate 104 /min [facility] 11-07-2022 13:27-0400 Respiratory rate 24 /min [facility] 11-07-2022 13:27-0400 Systolic blood pressure 150 mm[Hg] [facility] 10-31-2022 00:27-0400 Body weight 113.46 kg [facility] 10-26-2022 12:58-0400 Body mass index (BMI) [Ratio] 39.7 kg/m2 [facility] 10-26-2022 12:58-0400 Body temperature 97.5 [degF] [facility] 10-26-2022 12:58-0400 Diastolic blood pressure 80 mm[Hg] [facility] 10-26-2022 12:58-0400 Heart rate 94 /min [facility] 10-26-2022 12:58-0400 Respiratory rate 20 /min [facility] 10-26-2022 12:58-0400 Systolic blood pressure 185 mm[Hg] [facility] 10-10-2022 13:17-0400 Body height 168.91 cm [facility] 10-10-2022 13:17-0400 Body weight 113.46 kg [facility] 09-26-2022 12:22-0400 Body temperature 98.2 [degF] Sharona Bettencourt PA-C Work Phone: [facility] 09-26-2022 12:22-0400 Body weight 113.4 kg Sharona Bettencourt PA-C Work Phone: [facility] 09-26-2022 12:22-0400 Diastolic blood pressure 80 mm[Hg] Sharona Bettencourt PA-C Work Phone: [facility] 09-26-2022 12:22-0400 Heart rate 54 /min Sharona Bettencourt PA-C Work Phone: [facility] 09-26-2022 12:22-0400 Respiratory rate 20 /min Sharona Bettencourt PA-C Work Phone: [facility] 09-26-2022 12:22-0400 Systolic blood pressure 120 mm[Hg] Sharona Bettencourt PA-C Work Phone: [facility] 09-25-2022 11:40-0400 Body temperature 97.81 [degF] Oanh Morrell DIRECTOR VIDEO.DIESEL MAINTENANCE TECHNICIAN Work Phone: [facility] 09-25-2022 11:40-0400 Body weight 113.76 kg Oanh Morrell DIRECTOR VIDEO.DIESEL MAINTENANCE TECHNICIAN Work Phone: [facility] 09-25-2022 11:40-0400 Diastolic blood pressure 82 mm[Hg] Oanh Morrell DIRECTOR VIDEO.DIESEL MAINTENANCE TECHNICIAN Work Phone: [facility] 09-25-2022 11:40-0400 Heart rate 82 /min Oanh Morrell DIRECTOR VIDEO.DIESEL MAINTENANCE TECHNICIAN Work Phone: [facility] 09-25-2022 11:40-0400 Respiratory rate 18 /min Oanh Morrell DIRECTOR VIDEO.DIESEL MAINTENANCE TECHNICIAN Work Phone: [facility] 09-25-2022 11:40-0400 SaO2% (BldA) [Mass fraction] 94 % Oanh Morrell DIRECTOR VIDEO.DIESEL MAINTENANCE TECHNICIAN Work Phone: [facility] 09-25-2022 11:40-0400 Systolic blood pressure 124 mm[Hg] Oanh Morrell DIRECTOR VIDEO.DIESEL MAINTENANCE TECHNICIAN Work Phone: [facility] 09-19-2022 14:28-0400 Body height 167.6 cm Azra Athy PA-C Work Phone: [facility] 09-19-2022 14:28-0400 Body temperature 98.29 [degF] Azra Athy PA-C Work Phone: [facility] 09-19-2022 14:28-0400 Body weight 115.67 kg Azra Athy PA-C Work Phone: [facility] 09-19-2022 14:28-0400 Diastolic blood pressure 74 mm[Hg] Azra Athy PA-C Work Phone: [facility] 09-19-2022 14:28-0400 Heart rate 72 /min Azra Athy PA-C Work Phone: [facility] 09-19-2022 14:28-0400 Respiratory rate 16 /min Azra Athy PA-C Work Phone: [facility] 09-19-2022 14:28-0400 SaO2% (BldA) [Mass fraction] 95 % Azra Athy PA-C Work Phone: [facility] 09-19-2022 14:28-0400 Systolic blood pressure 116 mm[Hg] Azra Athy PA-C Work Phone: [facility] 04-11-2022 09:49-0500 Diastolic blood pressure 74 mm[Hg] Rasheed Chin DIRECTOR VIDEO.DIESEL MAINTENANCE TECHNICIAN Work Phone: [facility] 04-11-2022 09:49-0500 Systolic blood pressure 132 mm[Hg] Rasheed Chin DIRECTOR VIDEO.DIESEL MAINTENANCE TECHNICIAN Work Phone: [facility] 04-11-2022 09:05-0500 Body weight 118.84 kg Rasheed Chin DIRECTOR VIDEO.DIESEL MAINTENANCE TECHNICIAN Work Phone: [facility] 04-11-2022 09:05-0500 Heart rate 92 /min Rasheed Chin DIRECTOR VIDEO.DIESEL MAINTENANCE TECHNICIAN Work Phone: [facility] 04-11-2022 09:05-0500 Respiratory rate 20 /min Rasheed Chin DIRECTOR VIDEO.DIESEL MAINTENANCE TECHNICIAN Work Phone: [facility] 04-11-2022 09:05-0500 SaO2% (BldA) [Mass fraction] 96 % Rasheed Chin DIRECTOR VIDEO.DIESEL MAINTENANCE TECHNICIAN Work Phone: [facility] 03-29-2022 08:54-0500 Body weight 118.84 kg Sharona Bettencourt PA-C Work Phone: [facility] 03-29-2022 08:54-0500 Diastolic blood pressure 82 mm[Hg] Sharona Bettencourt PA-C Work Phone: [facility] 03-29-2022 08:54-0500 Heart rate 84 /min Sharona Bettencourt PA-C Work Phone: [facility] 03-29-2022 08:54-0500 Respiratory rate 18 /min Sharona Bettencourt PA-C Work Phone: [facility] 03-29-2022 08:54-0500 Systolic blood pressure 150 mm[Hg] Sharona Bettencourt PA-C Work Phone: [facility] 03-17-2022 14:57-0500 Body weight 116.12 kg Arturo Amaya MD Work Phone: [facility] 03-17-2022 14:57-0500 Diastolic blood pressure 82 mm[Hg] Arturo Amaya MD Work Phone: [facility] 03-17-2022 14:57-0500 Heart rate 76 /min Arturo Amaya MD Work Phone: [facility] 03-17-2022 14:57-0500 Respiratory rate 18 /min Arturo Amaya MD Work Phone: [facility] 03-17-2022 14:57-0500 Systolic blood pressure 160 mm[Hg] Arturo mAaya MD Work Phone: [facility] 03-06-2022 13:41-0500 Body weight 116.12 kg Arturo Amaya MD Work Phone: [facility] 03-06-2022 13:41-0500 Diastolic blood pressure 84 mm[Hg] Arturo Amaya MD Work Phone: [facility] 03-06-2022 13:41-0500 Heart rate 77 /min Arturo Amaya MD Work Phone: [facility] 03-06-2022 13:41-0500 Respiratory rate 18 /min Arturo Amaya MD Work Phone: [facility] 03-06-2022 13:41-0500 SaO2% (BldA) [Mass fraction] 95 % Arturo Amaya MD Work Phone: [facility] 03-06-2022 13:41-0500 Systolic blood pressure 168 mm[Hg] Arturo Amaya MD Work Phone: [facility] 01-23-2022 14:01-0400 Diastolic blood pressure 77 mm[Hg] Mi Nurse Work Phone: [facility] 01-23-2022 14:01-0400 Heart rate 80 /min Mi Nurse Work Phone: [facility] 01-23-2022 14:01-0400 Systolic blood pressure 138 mm[Hg] Mi Nurse Work Phone: [facility] 01-02-2022 10:04-0400 Body weight 115.85 kg Hai Hopson MD Work Phone: [facility] 01-02-2022 10:04-0400 Diastolic blood pressure 74 mm[Hg] Hai Hopson MD Work Phone: [facility] 01-02-2022 10:04-0400 Heart rate 80 /min Hai Hopson MD Work Phone: [facility] 01-02-2022 10:04-0400 Systolic blood pressure 154 mm[Hg] Hai Hopson MD Work Phone: [facility] 11-22-2021 09:57-0400 Body temperature 97.39 [degF] Sharona Bettencourt PA-C Work Phone: [facility] 11-22-2021 09:57-0400 Body weight 109.77 kg Sharona Bettencourt PA-C Work Phone: [facility] 11-22-2021 09:57-0400 Diastolic blood pressure 72 mm[Hg] Sharona Bettencourt PA-C Work Phone: [facility] 11-22-2021 09:57-0400 Heart rate 72 /min Sharonaroselyn Bettencourt PA-C Work Phone: [facility] 11-22-2021 09:57-0400 Respiratory rate 18 /min Sharonaroselyn Bettencourt PA-C Work Phone: [facility] 11-22-2021 09:57-0400 Systolic blood pressure 110 mm[Hg] Sharona Bettencourt PA-C Work Phone: [facility] 11-18-2021 13:12-0400 Body temperature 97.9 [degF] Elizabeth Praisler-Wood DIRECTOR VIDEO.DIESEL MAINTENANCE TECHNICIAN Work Phone: [facility] 11-18-2021 13:12-0400 Body weight 110.22 kg Elizabeth Praisler-Wood DIRECTOR VIDEO.DIESEL MAINTENANCE TECHNICIAN Work Phone: [facility] 11-18-2021 13:12-0400 Diastolic blood pressure 74 mm[Hg] Elizabeth Praisler-Wood DIRECTOR VIDEO.DIESEL MAINTENANCE TECHNICIAN Work Phone: [facility] 11-18-2021 13:12-0400 Heart rate 78 /min Elizabeth Praisler-Wood DIRECTOR VIDEO.DIESEL MAINTENANCE TECHNICIAN Work Phone: [facility] 11-18-2021 13:12-0400 Respiratory rate 18 /min Elizabeth Praisler-Wood DIRECTOR VIDEO.DIESEL MAINTENANCE TECHNICIAN Work Phone: [facility] 11-18-2021 13:12-0400 SaO2% (BldA) [Mass fraction] 96 % Elizabeth Praisler-Wood DIRECTOR VIDEO.DIESEL MAINTENANCE TECHNICIAN Work Phone: [facility] 11-18-2021 13:12-0400 Systolic blood pressure 132 mm[Hg] Elizabeth Jorge PRABHAKARDIESEL MAINTENANCE TECHNICIAN Work Phone: [facility] 10-24-2021 09:46-0400 Body weight 113.4 kg Hai Hopson MD Work Phone: [facility] 10-24-2021 09:46-0400 Diastolic blood pressure 80 mm[Hg] Hai Hopson MD Work Phone: [facility] 10-24-2021 09:46-0400 Heart rate 112 /min Hai Hopson MD Work Phone: [facility] 10-24-2021 09:46-0400 Systolic blood pressure 180 mm[Hg] Hai Hopson MD Work Phone: [facility] 09-16-2021 13:33-0400 Body height 165.1 cm Suzanna Nacho PA-C Work Phone: [facility] 09-16-2021 13:33-0400 Body temperature 97 [degF] Suzanna Nacho PA-C Work Phone: [facility] 09-16-2021 13:33-0400 Body weight 110.31 kg Suzanna Nacho PA-C Work Phone: [facility] 09-16-2021 13:33-0400 Diastolic blood pressure 84 mm[Hg] Suzanna Nacho PA-C Work Phone: [facility] 09-16-2021 13:33-0400 Heart rate 116 /min Suzanna [place] PA-C Work Phone: [facility] 09-16-2021 13:33-0400 SaO2% (BldA) [Mass fraction] 97 % Suzanna Nacho PA-C Work Phone: [facility] 09-16-2021 13:33-0400 Systolic blood pressure 138 mm[Hg] Suzanna Nacho PA-C Work Phone: [facility] 09-07-2021 09:33-0400 Diastolic blood pressure 63 mm[Hg] Sharona Bettencourt PA-C Work Phone: [facility] 09-07-2021 09:33-0400 Systolic blood pressure 114 mm[Hg] Sharona Bettencourt PA-C Work Phone: [facility] 09-07-2021 08:57-0400 Body weight 111.58 kg Sharona Bettencourt PA-C Work Phone: [facility] 09-07-2021 08:57-0400 Heart rate 96 /min Sharona Bettencourt PA-C Work Phone: [facility] 09-07-2021 08:57-0400 Respiratory rate 20 /min Sharona Bettencourt PA-C Work Phone: [facility] 06-21-2021 17:54-0400 Body temperature 98.01 [degF] Nancy Milad DIRECTOR VIDEO.DIESEL MAINTENANCE TECHNICIAN Work Phone: [facility] 06-21-2021 17:54-0400 Body weight 112.49 kg Nancy Milad DIRECTOR VIDEO.DIESEL MAINTENANCE TECHNICIAN Work Phone: [facility] 06-21-2021 17:54-0400 Diastolic blood pressure 84 mm[Hg] Nancy Milad DIRECTOR VIDEO.DIESEL MAINTENANCE TECHNICIAN Work Phone: [facility] 06-21-2021 17:54-0400 Heart rate 94 /min Nancy Milda DIRECTOR VIDEO.DIESEL MAINTENANCE TECHNICIAN Work Phone: [facility] 06-21-2021 17:54-0400 Respiratory rate 18 /min Nancy Milad DIRECTOR VIDEO.DIESEL MAINTENANCE TECHNICIAN Work Phone: [facility] 06-21-2021 17:54-0400 SaO2% (BldA) [Mass fraction] 95 % Nancy Milad DIRECTOR VIDEO.DIESEL MAINTENANCE TECHNICIAN Work Phone: [facility] 06-21-2021 17:54-0400 Systolic blood pressure 142 mm[Hg] Nancy Milad DIRECTOR VIDEO.DIESEL MAINTENANCE TECHNICIAN Work Phone: [facility] Encounters Encounter Date Encounter Type Care Provider Facility Start: 11-22-2024 ambulatory Luigi Padmini Facility:[facility] Start: 10-29-2024 End: 10-29-2024 Chart abstracting Arturo Amaya MD Work Phone: [facility] Comment on above: Abstract (Cardiology OV note - [facility]) Start: 10-29-2024 End: 10-29-[address] Luigi Washington MD -[facility] Work Phone: Start: 10-29-2024 End: 10-29-[address] Arturo Amaya MD Work Phone: -[facility] Start: 10-22-2024 End: 10-22-2024 ambulatory [facility] Work Phone: [facility] Start: 10-22-2024 End: 10-22-2024 Patient encounter procedure [facility] Work Phone: [facility] Start: 10-21-2024 End: 10-21-2024 Telephone encounter Sharona Bettencourt PA-C Work Phone: [facility] Comment on above: Medication Problem Start: 10-21-2024 End: 10-21-2024 Office outpatient visit 25 minutes Sharona Bettencourt PA-C Work Phone: [facility] Comment on above: Major depressive dis order, recurrent, moderate (HCC) (Primary Dx); Essential hypertension; SAMEER (generalized anxiety disorder); 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); Diastolic congestive heart failure, unspecified HF chronicity (HCC); Uncontrolled type 2 diabetes mellitus with hyperglycemia (HCC); 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); Venous insufficiency (chronic) (peripheral) Start: 10-21-2024 End: 10-21-2024 ambulatory ARTURO AMAYA Facility:[facility] Start: 09-23-2024 End: 09-23-2024 Patient encounter procedure Rasheed Chin APRN.CNP Work Phone: [facility] [place] Comment on above: Major depressive dis order, recurrent, moderate (HCC) (Primary Dx); SAMEER (generalized anxiety disorder) Start: 09-23-2024 End: 09-23-2024 ambulatory ARTURO AMAYA Facility:[facility] Start: 09-23-2024 End: 09-23-2024 Telephone encounter Arturo Amaya MD Work Phone: [facility] Comment on above: Medication Request Start: 09-12-2024 End: 09-19-2024 Follow-up encounter Rasheed Chin APRN.CNP Work Phone: [facility] Start: 09-12-2024 End: 09-12-2024 ambulatory ARTURO AMAYA Facility:[facility] Start: 09-11-2024 End: 09-12-2024 Follow-up encounter Sharona Bettencourt PA-C Work Phone: [facility] Start: 09-10-2024 End: 09-10-2024 ambulatory ARTURO AMAYA Facility:[facility] Start: 09-10-2024 End: 09-10-2024 Patient encounter procedure Sharona Bettencourt PA-C Work Phone: [facility] Comment on above: Type 2 diabetes ana itus with peripheral neuropathy (HCC) (Primary Dx); Uncontrolled type 2 diabetes mellitus with hyperglycemia (HCC); 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); Essential hypertension; Mixed hyperlipidemia; Vitamin D deficiency; Tinnitus of both ears; Adjustment disorder with depressed mood; Encounter for immunization; Age-related osteoporosis without current pathological fracture; Multiple thyroid nodules; OAB (overactive bladder); Gastroesophageal reflux disease with esophagitis without hemorrhage; Aortic stenosis, mild; SAMEER (generalized anxiety disorder); Diastolic congestive heart failure, unspecified HF chronicity (HCC); Auditory hallucination; Major depressive disorder, recurrent, moderate (HCC); Insomnia due to mental disorder; Bilateral hearing loss, unspecified hearing loss type Start: 09-10-2024 End: 09-10-2024 ambulatory ARTUROMICHELLE AMAYA Facility:[facility] Start: 09-05-2024 End: 09-05-2024 Patient encounter procedure Malia Simons Work Phone: Podiatry Comment on above: Onychomycosis (Prima ry Dx); Onychocryptosis; Pain in toe of left foot; Pain in toe of right foot; Diabetic polyneuropathy associated with type 2 diabetes mellitus (HCC); Ingrown toenail Start: 09-05-2024 End: 09-05-2024 ambulatory [facility] Facility:[facility] Start: 08-21-2024 End: 08-21-2024 Emergency department patient visit Dr. Evon Wilson DO -Emergency Department Work Phone: Start: 08-14-2024 End: 08-14-2024 ambulatory [facility] Work Phone: [facility] Start: 08-14-2024 End: 08-14-2024 Patient encounter procedure Xiang [facility] Work Phone: [facility] Start: 08-07-2024 End: 08-07-2024 Refill Rasheed Chin APRN.CNP Work Phone: [facility] [place] Comment on above: Refill Request Start: 07-10-2024 End: 09-09-2024 Follow-up encounter Malia Simons Work Phone: Podiatry Start: 07-10-2024 End: 07-30-2024 Telephone encounter Malia Simons Work Phone: Podiatry Comment on above: Results Start: 07-09-2024 End: 07-09-2024 ambulatory [facility] Facility:[facility] Start: 07-04-2024 End: 07-11-2024 Follow-up encounter Rasheed Chin APRN.DIESEL MAINTENANCE TECHNICIAN Work Phone: [facility] [place] Comment on above: Results Start: 07-02-2024 End: 07-15-2024 Telephone encounter Sharona Bettencourt PA-C Work Phone: [facility] [place] Comment on above: Results Start: 06-26-2024 End: 06-26-2024 ambulatory [facility] Facility:[facility] Start: 06-26-2024 End: 06-26-2024 Subsequent [facility] visit by [facility] Work Phone: [facility] Medicine Comment on above: Elevated alkaline ph osphatase level [R74.8] Start: 06-25-2024 End: 06-25-2024 ambulatory July Banda RN NURSE FACILITY WORKER Comment on above: FYI-No Action Needed Start: 06-18-2024 End: 06-18-2024 Chart abstracting Judith Parrish MA [facility] Comment on above: ER F/U Start: 06-16-2024 End: 06-16-2024 Emergency department patient visit Dr. Arturo Amaya MD Work Phone: -Emergency Department Work Phone: Start: 06-16-2024 End: 06-16-2024 Telephone encounter Arturo Amaya MD Work Phone: [facility] [place] Comment on above: Patient Update Start: 06-11-2024 End: 06-11-2024 Nursing evaluation of patient and report Alexandre Khan RN Work Phone: Endocrinology Comment on above: Controlled type 2 di abetes with neuropathy (HCC) (Primary Dx) Start: 06-11-2024 End: 06-11-2024 ambulatory [facility] Facility:[facility] Start: 06-11-2024 End: 06-11-2024 Patient encounter procedure Christa Sheridan APRN.DIESEL MAINTENANCE TECHNICIAN Work Phone: Endocrinology Comment on above: Poorly controlled ty pe 2 diabetes mellitus (HCC) (Primary Dx); Uncontrolled type 2 diabetes mellitus with hyperglycemia (HCC) Start: 06-02-2024 End: 06-02-2024 ambulatory [facility] Facility:[facility] Start: 06-02-2024 End: 06-02-2024 Patient encounter procedure Malia Simons Work Phone: Podiatry Comment on above: Onychomycosis (Prima ry Dx); Uncontrolled type 2 diabetes mellitus with hyperglycemia (HCC); Ingrown toenail; Onychocryptosis; Callus; Diabetic polyneuropathy associated with type 2 diabetes mellitus (HCC); Hammer toes of both feet; Diminished pulses in lower extremity Start: 05-26-2024 End: 05-30-2024 Follow-up encounter Sharona Bettencourt PA-C Work Phone: [facility] [place] Comment on above: Multiple thyroid nod ules (Primary Dx) Age-related osteopor osis without current pathological fracture (Primary Dx) Start: 05-23-2024 End: 05-23-2024 ambulatory ARTURO AMAYA Facility:[facility] Start: 05-23-2024 End: 05-23-2024 Subsequent hospital visit by physician Bone Density [facility] Work Phone: Radiology Comment on above: Asymptomatic postmen opausal status [Z78.0] Multiple thyroid nod ules [E04.2] Start: 05-19-2024 End: 05-19-2024 Follow-up encounter Sharona Bettencourt PA-C Work Phone: [facility] [place] Comment on above: Elevated alkaline ph osphatase level (Primary Dx); Metabolic dysfunction-associated steatotic liver disease (MASLD) Start: 05-14-2024 End: 05-14-2024 Patient encounter procedure Sharona Bettencourt PA-C Work Phone: [facility] [place] Comment on above: Hypertension, essent ial (Primary Dx); Uncontrolled type 2 diabetes mellitus with hyperglycemia (HCC); Ingrown toenail Start: 05-14-2024 End: 05-14-2024 ambulatory ARTURO AMAYA Facility:[facility] Start: 04-30-2024 End: 04-30-2024 [facility] Work [facility]: Start: 04-30-2024 End: 04-30-2024 ambulatory Arturo Amaya Facility:[facility] Start: 04-30-2024 Ophthalmic examinati on and evaluation Sharona Bettencourt PA-C Work Phone: [facility] Start: 04-29-2024 End: 04-29-2024 Chart abstracting Judith Parrish MA [facility] Comment on above: ER F/U ([facility] ) Start: 04-29-2024 End: 04-29-2024 ambulatory ARTURO AMAYA Facility:[facility] Start: 04-29-2024 End: 04-29-2024 Office outpatient visit 25 minutes Sharona Bettencourt PA-C Work Phone: [facility] [place] Comment on above: Hypertension, essent ial (Primary Dx) Start: 04-28-2024 End: 04-28-2024 ambulatory ARTURO Tinajero [facility] Facility:[facility] Start: 04-28-2024 End: 04-28-2024 Subsequent hospital visit by physician [facility] Work Phone: Radiology Comment on above: Elevated alkaline ph osphatase level [R74.8] Start: 04-22-2024 End: 04-22-2024 Emergency department patient visit Dr. Fer Choudhury MD -Emergency Department Work Phone: Start: 04-17-2024 End: 04-17-2024 Telephone encounter Arturo Amaya MD Work Phone: [facility] [place] Comment on above: Medication Question Start: 04-16-2024 End: 04-17-2024 Telephone encounter Sharona Bettencourt PA-C Work Phone: [facility] [place] Comment on above: Results Start: 04-15-2024 End: 04-15-2024 ambulatory ARTURO AMAYA Facility:[facility] Start: 04-15-2024 End: 04-15-2024 [facility] ART[facility]O Lior JOSE LUIS Facility:[facility] Start: 04-15-2024 End: 04-15-2024 Patient encounter procedure Sharona Bettencourt PA-C Work Phone: [facility] [place] Comment on above: Medicare annual well ness visit, subsequent (Primary Dx); Advanced care planning/counseling discussion; Uncontrolled type 2 diabetes mellitus with hyperglycemia (HCC); 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); Mixed hyperlipidemia; Essential hypertension; Screening for depression; Multiple thyroid nodules; Gastroesophageal reflux disease with esophagitis without hemorrhage; OAB (overactive bladder); 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); SAMEER (generalized anxiety disorder); Adjustment disorder with depressed mood; Medication management; Screening for colon cancer; History of colonic polyps; Dysphagia, unspecified type; Asymptomatic postmenopausal status; Urge incontinence Start: 03-29-2024 End: 03-29-2024 ambulatory ARTURO AMAYA Facility:[facility] Start: 03-29-2024 End: 03-29-2024 Office outpatient visit 25 minutes Kim Rob PA-C Work Phone: [facility] Comment on above: Urgency incontinence (Primary Dx); Vaginal candidiasis; Urethral irritation Start: 02-19-2024 End: 02-19-2024 Patient encounter procedure Arturo Amaya MD Work Phone: [facility] Work Phone: Start: 02-19-2024 End: 02-19-2024 Refill Arturo Amaya MD Work Phone: [facility] [place] Comment on above: Refill Request Start: 02-04-2024 End: 02-04-2024 ambulatory Arturo Amaya MD Work Phone: [facility] [employer] Comment on above: Allied Health Visit (Medication Adherence Outreach ) Start: 01-18-2024 End: 01-22-2024 ambulatory Portillo Pineda RN Work Phone: [facility] [employer] [facility] Start: 01-18-2024 End: 01-22-2024 Follow-up encounter Portillo Pineda RN Work Phone: [facility] [employer] [facility] Comment on above: ACM BINH RN ( ER outreach follow up) Start: 01-15-2024 End: 01-15-2024 Emergency department patient visit Arturo Amaya Facility:[facility] Start: 12-21-2023 End: 12-21-2023 ambulatory ARTURO AMAYA Facility:[facility] Start: 12-21-2023 End: 12-21-2023 Patient encounter procedure Monica Parrish APRN.CNP Work Phone: [facility] Comment on above: Pain, dental (Primar y Dx) Start: 11-19-2023 End: 11-19-2023 ambulatory Arturo Amaya MD Work Phone: [facility] Comment on above: Allied Health Visit (Medication Adherence Outreach ) Start: 11-17-2023 End: 11-17-2023 ambulatory ARTURO AMAYA Facility:[facility] Start: 11-17-2023 End: 11-17-2023 Patient encounter procedure Monica Parrish APRN.DIESEL MAINTENANCE TECHNICIAN Work Phone: [facility] Comment on above: Skin infection (Prim odalys Dx) Start: 10-16-2023 ambulatory Liz jacob [facility] Start: 10-16-2023 Patient encounter procedure Liz Cole [facility] Comment on above: Population Health Na vigation Outreach ([place] Med Adherence ) Start: 08-29-2023 End: 08-29-2023 Patient encounter procedure Arturo Amaya MD Work Phone: [facility] Comment on above: Cellulitis of skin ( Primary Dx); Essential hypertension Start: 08-22-2023 ambulatory Becki Minda walker [facility] Work Phone: [facility] Comment on above: Allied Health Visit (Diabetes Medication Adherence) Start: 08-21-2023 ambulatory Arturo willams MD Work Phone: [facility] Comment on above: Allied Health Visit (Medication Adherence Outreach ) Start: 08-20-2023 End: 08-20-2023 Patient encounter procedure Arturo Amaya MD Work Phone: [facility] Comment on above: Cellulitis of skin ( Primary Dx); Non-compliance; Essential hypertension; Uncontrolled type 2 diabetes mellitus with hyperglycemia (HCC) Start: 08-15-2023 Patient Outreach uJdith Parrish MA [facility] Comment on above: Transition Of Care Start: 08-12-2023 Evaluation and management of inpatient [facility]-Medical Surgical 3 Work Phone: Start: 08-11-2023 Telephone encounter Monica Parrish APRN.DIESEL MAINTENANCE TECHNICIAN Work Phone: [facility] Comment on above: Results Start: 08-10-2023 End: 08-10-2023 Patient encounter procedure Joe Craft APRN.DIESEL MAINTENANCE TECHNICIAN Work Phone: [facility] Comment on above: Wound of right lower extremity, initial encounter (Primary Dx); Essential hypertension; Uncontrolled type 2 diabetes mellitus with hyperglycemia (HCC) Start: 07-12-2023 ambulatory Arturo willams MD Work Phone: [facility] Comment on above: Allied Health Visit (Medication Adherence Outreach/) Start: 07-09-2023 ambulatory Myah Allen Jeffrey lamb [facility] Work Phone: [facility] Comment on above: Allied Health Visit (DM Med Adherence) Start: 07-05-2023 ambulatory Arturo willams MD Work Phone: [facility] Comment on above: Allied Health Visit (Medication Adherence Outreach ) Start: 02-28-2023 ambulatory Arturo willams MD Work Phone: [facility] Comment on above: Allied Health Visit (Medication Adherence Outreach ) Start: 02-08-2023 ambulatory Esperanza Heath [facility] Work Phone: [facility] Comment on above: Allied Health Visit (DM Medication Adherence) Start: 02-02-2023 ambulatory Arturo willams MD Work Phone: [facility] Comment on above: Allied Health Visit (Medication Adherence Outreach ) Start: 12-09-2022 Telephone encounter Azra mack PA-C Work Phone: [facility] Start: 12-07-2022 Chart abstracting Arturo ortiz MD Work Phone: [facility] Comment on above: external results ([facility] ER report and CT) Start: 12-06-2022 End: 12-07-2022 Emergency department patient visit [facility]-Emergency Department Work Phone: Start: 12-05-2022 End: 12-05-2022 Patient encounter procedure Azra Up PA-C Work Phone: [facility] Comment on above: Cellulitis and absce ss of right leg (Primary Dx) Start: 11-15-2022 Chart abstracting Arturo ortiz MD Work Phone: [facility] Comment on above: ER F/U Start: 11-14-2022 End: 11-15-2022 Emergency department patient visit [facility]-Emergency Department Work Phone: Start: 11-07-2022 End: 11-07-2022 ambulatory [facility] Work Phone: Start: 11-07-2022 End: 11-07-2022 [facility] Start: 10-26-2022 End: 10-30-2022 ambulatory [facility] Work Phone: Start: 10-26-2022 End: 10-30-2022 [facility] Work Phone: Start: 10-18-2022 Chart abstracting Arturo ortiz MD Work Phone: [facility] Comment on above: outside imaging Start: 09-27-2022 Telephone encounter Arturo Amaya MD Work Phone: [facility] Comment on above: Medication Problem Start: 09-26-2022 End: 09-26-2022 Patient encounter procedure Sharona Bettencourt PA-C Work Phone: [facility] Comment on above: Cellulitis of skin ( Primary Dx); Wound of left lower extremity, subsequent encounter; OAB (overactive bladder) Start: 09-25-2022 End: 09-25-2022 Patient encounter procedure Lupe FONTANEZC Work Phone: Orthopaedics Comment on above: Carpal tunnel syndro me on right (Primary Dx) Start: 09-25-2022 End: 09-25-2022 Subsequent hospital visit by physician Kam [facility] [place] Work Phone: Radiology Comment on above: Acute constipation [ K59.00] Start: 09-25-2022 End: 09-25-2022 Patient encounter procedure Oanh Morrell APRN.DIESEL MAINTENANCE TECHNICIAN Work Phone: [facility] Comment on above: Acute constipation ( Primary Dx) Start: 09-21-2022 Refill Arturo willams MD Work Phone: [facility] Comment on above: Refill Request Start: 09-19-2022 End: 09-19-2022 Patient encounter procedure Azra Up PA-C Work Phone: [facility] Comment on above: Vaginal yeast infect ion (Primary Dx); Left leg cellulitis; Intertrigo Start: 07-03-2022 Telephone encounter Arturo Amaya MD Work Phone: [facility] Comment on above: Patient Update; Medi cation Problem Start: 06-05-2022 Refill Arturo willams MD Work Phone: [facility] Comment on above: Refill Request Start: 06-02-2022 Telephone encounter Fer mills MD Work Phone: Orthopaedics Comment on above: Schedule Surgery Start: 05-10-2022 Chart abstracting Arturo ortiz MD Work Phone: [facility] Comment on above: Results (EMG results ) Start: 05-08-2022 Non-patient / Non-visit Dr. Ray Amaya Work Phone: [facility] Start: 05-08-2022 End: 05-08-[address] Arturo Amaya Work Phone: [facility] Work Phone: Start: 05-08-2022 End: 05-08-[address] Arturo Amaya Work Phone: 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); Encounter for immunization Start: 04-04-2022 Refill Hai Hopson MD Work Phone: Cardiology Comment on above: Refill Request Start: 03-29-2022 End: 03-29-2022 Office outpatient visit 15 minutes Sharona Bettencourt PA-C Work Phone: [facility] [place] Comment on above: Cellulitis of skin ( Primary Dx) Start: 03-17-2022 End: 03-17-2022 Patient encounter procedure Arturo Amaya MD Work Phone: [facility] [place] Comment on above: Cellulitis of skin ( Primary Dx) Start: 03-10-2022 Telephone encounter Arturo Amaya MD Work Phone: [facility] [place] Comment on above: Results Start: 03-08-2022 Telephone encounter Arturo Amaya MD Work Phone: [facility] [place] Comment on above: Medication Question Start: 03-06-2022 End: 03-06-2022 Patient encounter procedure Arturo Amaya MD Work Phone: [facility] [place] Comment on above: Cellulitis of skin ( Primary Dx); Essential hypertension; 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); Multiple thyroid nodules; Mixed hyperlipidemia; Uncontrolled type 2 diabetes mellitus with hyperglycemia (HCC); Vitamin D deficiency; Medication management Start: 01-23-2022 Telephone encounter Arturo Amaya MD Work Phone: [facility] [place] Comment on above: Blood Pressure Start: 01-23-2022 End: 01-23-2022 Nursing evaluation of patient and report Mi Nurse Work Phone: [facility] [place] Comment on above: Essential hypertensi on (Primary Dx) Start: 01-02-2022 Telephone encounter Arturo Amaya MD Work Phone: [facility] [place] Comment on above: Patient Update Start: 01-02-2022 End: 01-02-2022 Patient encounter procedure Hai Hopson MD Work Phone: Cardiology Comment on above: Primary hypertension [I10 (ICD-10-CM)] (Primary Dx) Start: 12-27-2021 Telephone encounter Arturo Amaya MD Work Phone: [facility] [place] Comment on above: Results; Orders Start: 12-26-2021 End: 12-26-2021 Subsequent hospital visit by physician Xr [facility] [place] Work Phone: Radiology Comment on above: Neck pain [M54.2] Start: 12-06-2021 End: 12-06-2021 Subsequent hospital visit by physician Ct [facility] (I-Stat) Work Phone: Cat Scan Comment on above: Headache, new daily persistent (NDPH) [G44.52] Start: 11-23-2021 Telephone encounter Sharona griffin PA-C Work Phone: [facility] [place] Comment on above: Results Start: 11-22-2021 End: 11-22-2021 Patient encounter procedure Sharona Bettencourt PA-C Work Phone: [facility] [place] Comment on above: Headache, new daily persistent (NDPH) (Primary Dx); Tinnitus of both ears; Hypoglycemia Start: 11-18-2021 End: 11-18-2021 Patient encounter procedure Elizabeth Yañez APRN.CNP Work Phone: [facility] Comment on above: Burning with urinati on (Primary Dx); Tinnitus, bilateral Start: 10-28-2021 Telephone encounter Sharona griffin PA-C Work Phone: [facility] [place] Comment on above: Results Start: 10-27-2021 Refill Sharona Gandhi on PA-C Work Phone: [facility] [place] Comment on above: Refill Request Start: 10-24-2021 Telephone encounter Hai Hopson MD Work Phone: [employer] Comment on above: Preparations For Pro cedures Start: 10-24-2021 End: 10-24-2021 Patient encounter procedure Hai Hopson MD Work Phone: Cardiology Comment on above: Chest pain, unspecif ied type; Abnormal stress ECG with treadmill Start: 09-16-2021 End: 09-16-2021 Patient encounter procedure Suzanna Cinco Ranchlinda MAKI Work Phone: General Surgery Comment on above: APPOINTMENT CANCELLE D (Primary Dx) Start: 09-08-2021 Telephone encounter Sharona griffin PA-C Work Phone: [facility] [place] Comment on above: Results Start: 09-07-2021 End: 09-07-2021 Patient encounter procedure Sharona Bettencourt PA-C Work Phone: [facility] [place] Comment on above: Controlled type 2 di abetes with neuropathy (HCC) (Primary Dx); Mixed hyperlipidemia; Essential hypertension; Gastroesophageal reflux disease with esophagitis without hemorrhage; Stricture and stenosis of esophagus; History of colonic polyps; Aortic stenosis, mild; Multiple thyroid nodules; Adjustment disorder with depressed mood; Morbid obesity with BMI of 40.0-44.9, adult (HCC); SOB (shortness of breath); Hypersomnia; Snoring Start: 08-18-2021 Refill Arturo willams MD Work Phone: [facility] [place] Comment on above: Refill Request; Refi ll Request Start: 06-21-2021 End: 06-21-2021 Patient encounter procedure Nancy Stinson APRN.CNP Work Phone: [facility] Comment on above: Other eczema (Primar y Dx) Start: 06-20-2021 Telephone encounter Arturo Amaya MD Work Phone: [facility] [place] Comment on above: Results Start: 06-02-2021 Telephone encounter Arturo Amaya MD Work Phone: [facility] [place] Comment on above: Future Appointment Start: 04-26-2021 End: 04-26-2021 Subsequent hospital visit by physician Kam [facility] [place] Work Phone: Radiology Comment on above: Fall (on) (from) oth er stairs and steps, initial encounter [W10.8XXA] Start: 04-26-2021 Patient encounter status Arturo Amaya MD Work Phone: [facility] [place] Start: 04-26-2021 Telephone encounter Arturo Amaya MD Work Phone: [facility] [place] Comment on above: Future Appointment Start: 03-21-2021 Patient encounter procedure Atruro Amaya MD Work Phone: [facility] Work Phone: Start: 10-26-2017 Ophthalmic examinati on and evaluation Arturo Amaya MD Work Phone: [facility] Start: 04-19-2017 Patient encounter status Arturo Amaya MD Work Phone: [facility] Work Phone: Start: 01-22-2017 End: 01-22-2017 Ambulatory [facility] Facility:[facility] Start: 01-18-2017 End: 01-19-2017 Emergency department patient visit DEBBIE PARKER Facility:B Procedures Date Procedure Procedure Detail Performing Clinician Start: 09-10-2024 PFIZER-BIONTECH COVID-19 VACCINE AGE 12+ YR (COMIRNATY) Sharona Bettencourt PA-C Work Phone: Start: 08-21-2024 Urnls dip stick/tablet reagent auto microscopy Dr. Arturo Amaya MD Work Phone: Start: 08-21-2024 CT of head without contrast Dr. Arturo Amaya MD Work Phone: Start: 08-21-[address] Arturo Amaya MD Work Phone: Start: 06-26-2024 Bone &/joint imaging whole body Sharona Bettencourt PA-C Work Phone: Start: 06-16-2024 CT cervical spine without contrast Dr. Arturo Amaya MD Work Phone: Start: 06-16-2024 CT of chest without contrast Dr. Arturo Amaya MD Work Phone: Start: 06-16-2024 CT of head without contrast Dr. Arturo Amaya MD Work Phone: Start: 04-22-2024 CT of head without contrast Dr. Arturo Amaya MD Work Phone: Start: 04-15-2024 Adult depression screening assessment Sharona Bettencourt PA-C Work Phone: Start: 03-29-2024 BACTERIAL VAGINOSIS NAAT Kim Lexi Banks Work Phone: Start: 03-29-2024 Iadna trichomonas vaginalis amplified probe tech Kim Rob SHANTHI Work Phone: Start: 03-29-2024 Urnls dip stick/tablet rgnt auto w/o microscopy Jeannette ACHARYA Work Phone: Start: 12-07-2022 CT of head without contrast Start: 12-05-2022 Cul bact xcpt urine blood/stool aerobic isol Azra Up PA-C Work Phone: Start: 11-14-2022 Plain x-ray of elbow Start: 11-14-2022 Plain X-ray of shoulder Start: 11-14-2022 Radiologic examination of knee Start: 09-25-2022 Radiologic exam abdomen 1 view Oanh Morrell APRN.DIESEL MAINTENANCE TECHNICIAN Work Phone: Start: 04-11-2022 INFLUENZA SEASONAL QUADRIVALENT HIGH DOSE AGE 65+ Rasheed Chin DIRECTOR VIDEO.DIESEL MAINTENANCE TECHNICIAN Work Phone: Start: 03-17-2022 Cul bact xcpt urine blood/stool aerobic isol Arturo Amaya MD Work Phone: Start: 12-26-2021 Radex spine cervical 4 or 5 views Arturo Amaya MD Work Phone: Start: 12-06-2021 Ct head/brain w/o contrast material Sharona Bettencourt PA-C Work Phone: Start: 11-18-2021 Urnls dip stick/tablet rgnt auto w/o microscopy Oanh Morrell APRN.DIESEL MAINTENANCE TECHNICIAN Work Phone: Start: 10-24-2021 Ecg routine ecg w/least 12 lds w/i&r [facility] Provider Start: 04-26-2021 Radex ribs uni w/posteroant ch minimum 3 views Oanh Morrell APRN.DIESEL MAINTENANCE TECHNICIAN Work Phone: H/O: surgery History of surge ry on left wrist History of cholecystectomy History of cholecystectomy History of tonsillectomy History of tonsi llectomy Plan of Treatment Date Care Activity Detail Author Start: 05-23-2026 Screening for osteoporosis Bone Density Screening [facility] Start: 12-27-2025 Urine microalbumin profile [facility] Start: 09-10-2025 Hepatitis B surface antibody level LDL Cholesterol [facility] Start: 04-20-2025 End: 04-20-2025 Patient encounter procedure 04/20/2025 9:40 AM EST Office Visit Cardiology [address] [place] [address] Hai Hopson MD [address] [facility], [address] [place] [address] Dx: Aortic stenosis, mild [I35.0]; Diastolic congestive heart failure, unspecified HF chronicity (HCC) [I50.30] Cardiology Comment on above: Dx: Aortic stenosis, mild [I35.0]; Diast olic congestive heart failure, unspecified HF chronicity (HCC) [I50.30] Start: 04-15-2025 Depression Screening Depression Screening [facility] Start: 04-15-2025 Diabetic foot examination Diabetic Foot Exam [facility] Start: 04-15-2025 Hepatitis B surface antibody level LDL Cholesterol [facility] Start: 03-04-2025 Glaucoma screening Dilated Retinal Exam [facility] Start: 01-20-2025 End: 01-20-2025 Patient encounter procedure 01/20/2025 11:20 AM EDT Office Visit [facility] [address] [place] [address] Arturo Amaya MD [address] [place] [address] 4 month routine f/u [facility] Comment on above: 4 month routine f/u Start: 12-16-2024 End: 12-16-2024 Patient encounter procedure 12/16/2024 11:00 AM EDT Office Visit Podiatry [address] [place], [place] [id number] Malia Simons [address] [place] [address] 3 month follow up nail care Podiatry Comment on above: 3 month follow up nail care Start: 12-12-2024 End: 12-12-2024 Patient encounter procedure 12/12/2024 1:20 PM EDT Office Visit Podiatry [address] [place] [phone] Malia Simons [address] [place] [address] 3 month follow up nail care Podiatry Comment on above: 3 month follow up nail care Start: 12-11-2024 Hemoglobin A1c measurement HbA1C [facility] Start: 12-01-2024 End: 03-02-2025 Comprehensive metabolic 2000 panel - Serum or Plasma COMPREHENSIVE METABOLIC PANEL Lab Routine Poorly controlled type 2 diabetes mellitus (HCC) Expected: 12/01/2024, Expires: 03/02/2025 [facility] Work Phone: Comment on above: Expected: 12/01/2024, Expires: Start: 12-01-2024 End: 03-02-2025 Hemoglobin A1c in Blood HEMOGLOBIN A1C Lab Routine Poorly controlled type 2 diabetes mellitus (HCC) Expected: 12/01/2024, Expires: 03/02/2025 [facility] Comment on above: Expected: 12/01/2024, Expires: Start: 12-01-2024 Influenza vaccination Influenza Vaccine (#1) [facility] Start: 12-01-2024 End: 03-02-2025 LIPID PANEL, NONFASTING LIPID PANEL, NONFASTING Lab Routine Poorly controlled type 2 diabetes mellitus (HCC) Expected: 12/01/2024, Expires: 03/02/2025 [facility] Comment on above: Expected: 12/01/2024, Expires: Start: 12-01-2024 End: 03-02-2025 Microalbumin/Creatinine [Mass Ratio] in Urine ALBUMIN/CREATININE RATIO, URINE Lab Routine Poorly controlled type 2 diabetes mellitus (HCC) Expected: 12/01/2024, Expires: 03/02/2025 [facility] Comment on above: Expected: 12/01/2024, Expires: Start: 11-05-2024 End: 11-05-2024 Patient encounter procedure 11/05/2024 12:45 PM EDT Office Visit Endocrinology [address] [place] [address] Christa Sheridan APRN.DIESEL MAINTENANCE TECHNICIAN [address] [place] [address] 3 MTH F/U; 2nd attempt LVM on 07/29/24 to reschedule cancelled appt on 09/10/24 Endocrinology Comment on above: 3 MTH F/U; 2nd attempt LVM on 07/29/24 to reschedule cancelled appt on 09/10/24 Start: 10-29-2024 Evaluation of diagnostic study results [facility] Start: 10-21-2024 End: 10-21-2024 Patient encounter procedure 10/21/2024 1:00 PM EDT Office Visit Family Medicine [place] [address] [place] [address] Sharona Bettencourt PA-C [address] [place] [address] 4 week follow up meds [facility] Comment on above: 4 week follow up meds Start: 09-10-2024 End: 12-10-2024 Basic metabolic 2000 panel - Serum or Plasma [facility] Comment on above: Expected: 09/10/2024, Expires: Start: 09-10-2024 End: 12-10-2024 LIPID PANEL, NONFASTING [facility] Comment on above: Expected: 09/10/2024, Expires: Start: 09-10-2024 End: 12-10-2024 Urinalysis complete panel - Urine URINALYSIS, WITH MICROSCOPIC Lab Routine Uncontrolled type 2 diabetes mellitus with hyperglycemia (HCC) Expected: 09/10/2024, Expires: 12/10/2024 [facility] Work Phone: Comment on above: Expected: 09/10/2024, Expires: Start: 09-10-2024 End: 09-10-2024 Patient encounter procedure Endocrinology Comment on above: 3 MTH F/U 3 MTH F/U; 2nd attem pt LVM on 07/29/24 to reschedule cancelled appt on 09/10/24 Start: 09-09-2024 End: 09-09-2024 Patient encounter procedure 09/09/2024 8:20 AM EDT Office Visit [facility] [address] [place] [phone] Sharona Bettencourt PA-C [address] [place] [address] ov [facility] Comment on above: ov Start: 09-05-2024 End: 09-05-2024 Patient encounter procedure Podiatry Comment on above: 3 month follow up nail care Start: 08-21-2024 [facility] Start: 08-21-2024 [facility] Start: 08-18-2024 End: 08-18-2024 Patient encounter procedure [facility] Comment on above: Routine OV Start: 07-14-2024 Hemoglobin A1c measurement HbA1C [facility] Start: 07-09-2024 End: 07-09-2024 Patient encounter procedure 07/09/2024 11:00 AM EDT Office Visit Vasculary Surgery [address] [place] [address] Ingrown toenail [L60.0] Vasculary Surgery Comment on above: Ingrown toenail [L60.0] Start: 07-03-2024 End: 07-03-2024 Patient encounter procedure 07/03/2024 10:30 AM EDT Appointment Nuclear Medicine [address] [place] [address] Elevated alkaline phosphatase level [R74.8] Nuclear Medicine Comment on above: Elevated alkaline phosphatase level [R74 .8] Start: 07-03-2024 End: 07-03-2024 Patient encounter procedure 07/03/2024 7:30 AM EDT Appointment Nuclear Medicine [address] [place] [address] Elevated alkaline phosphatase level [R74.8] Nuclear Medicine Comment on above: Elevated alkaline phosphatase level [R74 .8] Start: 07-01-2024 Covid-19 Vaccine ( season) Covid-19 Vaccine ( season) [facility] Start: 06-26-2024 End: 06-26-2024 Patient encounter procedure Nuclear Medicine Comment on above: Elevated alkaline phosphatase level [R74 .8] Start: 06-16-2024 [facility] Start: 06-11-2024 End: 06-11-2024 Patient encounter procedure 06/11/2024 11:00 AM EDT Office Visit Endocrinology [address] [place] [address] Christa Sheridan APRN.[facility] [address] [place] [address] Dx: Uncontrolled type 2 diabetes mellitus with hyperglycemia (HCC) [E11.65] Endocrinology Comment on above: Dx: Uncontrolled type 2 diabetes mellitu s with hyperglycemia (HCC) [E11.65] Start: 06-05-2024 End: 06-05-2024 Patient encounter procedure 06/05/2024 10:30 AM EST Appointment Nuclear Medicine [address] [place] [address] Elevated alkaline phosphatase level [R74.8] Nuclear Medicine Comment on above: Elevated alkaline phosphatase level [R74 .8] Start: 06-05-2024 End: 06-05-2024 Patient encounter procedure 06/05/2024 7:30 AM EST Appointment Nuclear Medicine [address] [place] [address] Elevated alkaline phosphatase level [R74.8] Nuclear Medicine Comment on above: Elevated alkaline phosphatase level [R74 .8] Start: 06-02-2024 End: 06-02-2024 Patient encounter procedure 06/02/2024 11:00 AM EST Office Visit Podiatry [address] [place] [address] Malia Simons [address] [address] Dx: Uncontrolled type 2 diabetes mellitus with hyperglycemia (HCC) [E11.65]; Ingrown toenail [L60.0] Podiatry Comment on above: Dx: Uncontrolled type 2 diabetes mellitu s with hyperglycemia (HCC) [E11.65]; Ingrown toenail [L60.0] Start: 05-23-2024 End: 05-23-2024 Patient encounter procedure Radiology Comment on above: Asymptomatic postmenopausal status [Z78. 0] Multiple thyroid nod ules [E04.2] Start: 05-14-2024 End: 05-14-2024 Patient encounter procedure 05/14/2024 12:40 PM EST Office Visit Family [facility] [place] [address] [place], [place] [phone] Sharona Bettencourt PA-C [address] [place], [place] [phone] 4 week bp recheck, med increase Family [facility] Comment on above: 4 week bp recheck, med increase Start: 05-02-2024 End: 05-02-2024 Patient encounter procedure 05/02/2024 1:00 PM EST Office Visit Endocrinology [address] [place] [address] Fawn Stubbs MD [address] [place], [place] [phone] Uncontrolled type 2 diabetes mellitus with hyperglycemia (HCC) [E11.65] Endocrinology Comment on above: Uncontrolled type 2 diabetes mellitus wi th hyperglycemia (HCC) [E11.65] Start: 04-29-2024 End: 04-29-2024 Patient encounter procedure 04/29/2024 11:40 AM EST Office Visit [facility] [address] [place], [place] [phone] Sharona Bettencourt PA-C [address] [place], [place] [id number] ER Follow Up: [facility] 04/22/24: hypertension [facility] Comment on above: ER Follow Up: [facility] 04/22/24: hypertension Start: 04-23-2024 End: 04-23-2024 Patient encounter procedure 04/23/2024 10:45 AM EST Appointment Radiology [address] [place] [address] Elevated alkaline phosphatase level [R74.8] Radiology Comment on above: Elevated alkaline phosphatase level [R74 .8] Start: 04-22-2024 [facility] Start: 04-17-2024 End: 07-17-2024 Acute hepatitis 2000 panel - Serum HEP ACUTE PANEL BL Lab Routine Elevated alkaline phosphatase level Elevated LFTs Expected: 04/17/2024, Expires: 07/17/2024 [facility] Comment on above: Expected: 04/17/2024, Expires: Start: 04-17-2024 End: 07-17-2024 ALK PHOS ISOENZYM BL ALK PHOS ISOENZYM BL Lab Routine Elevated alkaline phosphatase level Elevated LFTs Expected: 04/17/2024, Expires: 07/17/2024 [facility] Work Phone: Comment on above: Expected: 04/17/2024, Expires: Start: 04-17-2024 End: 07-17-2024 Calcium [Mass/volume] in Serum or Plasma CALCIUM, TOTAL Lab Routine Hypercalcemia Expected: 04/17/2024, Expires: 07/17/2024 [facility] Comment on above: Expected: 04/17/2024, Expires: Start: 04-17-2024 End: 07-17-2024 Hepatic function 2000 panel - Serum or Plasma HEPATIC FUNCTION PNL Lab Routine Elevated alkaline phosphatase level Elevated LFTs Expected: 04/17/2024, Expires: 07/17/2024 [facility] Comment on above: Expected: 04/17/2024, Expires: Start: 04-07-2024 End: 04-07-2024 Patient encounter procedure 04/07/2024 11:40 AM EST Office Visit [facility] [place] [address] [place] [address] Sharona Bettencourt PA-C [address] [place] [address] medicare wellness [facility] Comment on above: medicare wellness Start: 03-28-2024 End: 06-27-2024 25-hydroxyvitamin D3 [Mass/volume] in Serum or Plasma VITAMIN D 25 HYDROXY Lab Routine Vitamin D deficiency Expected: 03/28/2024, Expires: 06/27/2024 [facility] Comment on above: Expected: 03/28/2024, Expires: Start: 03-28-2024 End: 06-27-2024 CBC W Auto Differential panel - Blood COMPLETE BLOOD COUNT AND DIFFERENTIAL Lab Routine 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) Expected: 03/28/2024, Expires: 06/27/2024 [facility] Comment on above: Expected: 03/28/2024, Expires: Start: 03-28-2024 End: 06-27-2024 Comprehensive metabolic 2000 panel - Serum or Plasma COMPREHENSIVE METABOLIC PANEL Lab Routine Mixed hyperlipidemia 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) Essential hypertension Expected: 03/28/2024, Expires: 06/27/2024 [facility] Comment on above: Expected: 03/28/2024, Expires: Start: 03-28-2024 End: 06-27-2024 Hemoglobin A1c in Blood HEMOGLOBIN A1C Lab Routine 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) Expected: 03/28/2024, Expires: 06/27/2024 [facility] Comment on above: Expected: 03/28/2024, Expires: Start: 03-28-2024 End: 06-27-2024 LIPID PANEL, NONFASTING LIPID PANEL, NONFASTING Lab Routine Mixed hyperlipidemia 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) Expected: 03/28/2024, Expires: 06/27/2024 [facility] Comment on above: Expected: 03/28/2024, Expires: Start: 03-28-2024 End: 06-27-2024 Microalbumin/Creatinine [Mass Ratio] in Urine ALBUMIN/CREATININE RATIO, URINE Lab Routine 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) Expected: 03/28/2024, Expires: 06/27/2024 [facility] Work Phone: Comment on above: Expected: 03/28/2024, Expires: Start: 03-28-2024 End: 06-27-2024 Thyrotropin [Units/volume] in Serum or Plasma THYROID STIMULATING HORMONE Lab Routine Multiple thyroid nodules Expected: 03/28/2024, Expires: 06/27/2024 [facility] Comment on above: Expected: 03/28/2024, Expires: Start: 03-28-2024 End: 06-27-2024 Urinalysis complete panel - Urine URINALYSIS, WITH MICROSCOPIC Lab Routine Mixed hyperlipidemia 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) Essential hypertension Expected: 03/28/2024, Expires: 06/27/2024 [facility] Comment on above: Expected: 03/28/2024, Expires: Start: 12-31-2023 End: 12-31-2023 Patient encounter procedure 12/31/2023 10:40 AM EDT Office Visit [facility] [address] [place], [place] [phone] Sharona Bettencourt PA-C [address] [place] [phone] 4 month follow up [facility] Comment on above: 4 month follow up Start: 12-02-2023 Covid-19 Vaccine () Covid-19 Vaccine () [facility] Start: 12-02-2023 Covid-19 Vaccine ( season) Covid-19 Vaccine () [facility] Start: 12-02-2023 Influenza vaccination Influenza Vaccine (#1) [facility] Start: 11-11-2023 Hemoglobin A1c measurement HbA1C [facility] Start: 10-11-2023 3 comp foot exam completed DIABETIC FOOT EXAM [facility] Start: 10-11-2023 ANNUAL PCP TEAM CHRONIC DISEASE VISIT ANNUAL PCP TEAM CHRONIC DISEASE VISIT [facility] Start: 10-11-2023 BP CONTROLLED (<130/80) BP CONTROLLED (<130/80) [facility] Start: 10-11-2023 Diabetic foot examination Diabetic Foot Exam [facility] Start: 10-01-2023 End: 10-01-2023 Patient encounter procedure 10/01/2023 10:20 AM EDT Office Visit [facility] [address] [facility] [place] [phone] Rasheed Chin APRN.DIESEL MAINTENANCE TECHNICIAN [address] [facility] [place] [phone] 3 week follow up on HTN [facility] Comment on above: 3 week follow up on HTN Start: 09-27-2023 ANNUAL PCP TEAM CHRONIC DISEASE VISIT ANNUAL PCP TEAM CHRONIC DISEASE VISIT [facility] Start: 09-20-2023 BP CONTROLLED (<130/80) BP CONTROLLED (<130/80) [facility] Start: 08-29-2023 End: 08-29-2023 Patient encounter procedure 08/29/2023 2:40 PM EDT Office Visit [facility] [address] [facility] [place], [place] [phone] Arturo Amaya MD [address] [facility] [place] [phone] follow up on cellulits and HTN [facility] Comment on above: follow up on cellulits and HTN Start: 08-13-2023 End: 08-13-2023 Patient encounter procedure 08/13/2023 11:40 AM EDT Office Visit [facility] [address] [facility] [place], [place] [phone] Arturo Amaya MD [address] [facility] [place], [place] [phone] urg care follow up, blood work ordered by NITIN for sat august 10 [facility] Comment on above: urg care follow up, blood work ordered rodriguez TAVERAS for sat august 10 Start: 08-12-2023 Verification routine [facility] Start: 08-12-2023 Admission procedure [facility] Start: 08-12-2023 Hospital admission, emergency, from emergency room, medical nature [facility] Start: 08-10-2023 End: 11-09-2023 CBC W Auto Differential panel - Blood COMPLETE BLOOD COUNT AND DIFFERENTIAL Lab STAT Essential hypertension Uncontrolled type 2 diabetes mellitus with hyperglycemia (HCC) Expected: 08/10/2023, Expires: 11/09/2023 [facility] Comment on above: Expected: 08/10/2023, Expires: Start: 08-10-2023 End: 11-09-2023 Comprehensive metabolic 2000 panel - Serum or Plasma COMPREHENSIVE METABOLIC PANEL Lab STAT Essential hypertension Uncontrolled type 2 diabetes mellitus with hyperglycemia (HCC) Expected: 08/10/2023, Expires: 11/09/2023 [facility] Comment on above: Expected: 08/10/2023, Expires: 4 Start: 08-10-2023 End: 11-09-2023 Hemoglobin A1c in Blood HEMOGLOBIN A1C Lab Routine Uncontrolled type 2 diabetes mellitus with hyperglycemia (HCC) Expected: 08/10/2023, Expires: 11/09/2023 [facility] Work Phone: Comment on above: Expected: 08/10/2023, Expires: 4 Start: 04-11-2023 ANNUAL PCP TEAM CHRONIC DISEASE VISIT ANNUAL PCP TEAM CHRONIC DISEASE VISIT [facility] Start: 04-11-2023 Hepatitis B surface antibody level LDL CHOLESTEROL [facility] Start: 04-11-2023 SHINGRIX VACCINE (1 of 2) SHINGRIX VACCINE (1 of 2) [facility] Comment on above: Postponed from 02/07/1992 (Declined at t his time) Start: 04-02-2023 Behavioral Health Screening Behavioral Health Screening [facility] Start: 03-29-2023 ANNUAL PCP TEAM CHRONIC DISEASE VISIT ANNUAL PCP TEAM CHRONIC DISEASE VISIT [facility] Start: 03-17-2023 ANNUAL PCP TEAM CHRONIC DISEASE VISIT ANNUAL PCP TEAM CHRONIC DISEASE VISIT [facility] Start: 03-06-2023 ANNUAL PCP TEAM CHRONIC DISEASE VISIT ANNUAL PCP TEAM CHRONIC DISEASE VISIT [facility] Start: 01-10-2023 Hemoglobin A1c measurement HbA1C [facility] Start: 01-10-2023 Hemoglobin A1c/Hemoglobin.total in Blood HBA1C [facility] Start: 12-26-2022 ANNUAL PCP TEAM CHRONIC DISEASE VISIT ANNUAL PCP TEAM CHRONIC DISEASE VISIT [facility] Start: 12-05-2022 Covid-19 Vaccine () Covid-19 Vaccine () [facility] Start: 12-01-2022 Influenza vaccination [facility] Start: 11-22-2022 ANNUAL PCP TEAM CHRONIC DISEASE VISIT ANNUAL PCP TEAM CHRONIC DISEASE VISIT [facility] Start: 11-22-2022 BP CONTROLLED (<130/80) BP CONTROLLED (<130/80) [facility] Start: 10-09-2022 Hemoglobin A1c/Hemoglobin.total in Blood HBA1C [facility] Start: 09-26-2022 End: 11-26-2022 Bacteria identified in Urine by Culture [facility] Work Phone: Comment on above: Expected: 09/26/2022, Expires: 3 Start: 09-26-2022 End: 11-26-2022 Comprehensive metabolic 2000 panel - Serum or Plasma [facility] Work Phone: Comment on above: Expected: 09/26/2022, Expires: 3 Start: 09-26-2022 End: 11-26-2022 Urinalysis complete panel - Urine [facility] Work Phone: Comment on above: Expected: 09/26/2022, Expires: 3 Start: 09-07-2022 ANNUAL PCP TEAM CHRONIC DISEASE VISIT ANNUAL PCP TEAM CHRONIC DISEASE VISIT [facility] Start: 09-07-2022 BP CONTROLLED (<130/80) BP CONTROLLED (<130/80) [facility] Start: 09-07-2022 Hepatitis B surface antibody level LDL CHOLESTEROL [facility] Start: 05-10-2022 ANNUAL PCP TEAM CHRONIC DISEASE VISIT ANNUAL PCP TEAM CHRONIC DISEASE VISIT [facility] Start: 05-10-2022 BP CONTROLLED (<130/80) BP CONTROLLED (<130/80) [facility] Start: 04-02-2022 ADVANCE DIRECTIVE DISCUSSION ADVANCE DIRECTIVE DISCUSSION [facility] Start: 04-02-2022 DEPRESSION ASSESSMENT DEPRESSION ASSESSMENT [facility] Start: 03-21-2022 3 comp foot exam completed DIABETIC FOOT EXAM [facility] Start: 03-21-2022 Hepatitis B surface antibody level LDL CHOLESTEROL [facility] Start: 03-09-2022 Hemoglobin A1c/Hemoglobin.total in Blood HBA1C [facility] Start: 03-06-2022 End: 05-06-2022 25-hydroxyvitamin D3 [Mass/volume] in Serum or Plasma VITAMIN D 25 HYDROXY Lab Routine Vitamin D deficiency Expected: 03/06/2022, Expires: 05/06/2022 [facility] Work Phone: Comment on above: Expected: 03/06/2022, Expires: 3 Start: 03-06-2022 End: 05-06-2022 ALBUMIN/CREAT RATIO RND UR ALBUMIN/CREAT RATIO RND UR Lab Routine 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) Uncontrolled type 2 diabetes mellitus with hyperglycemia (HCC) Expected: 03/06/2022, Expires: 05/06/2022 [facility] Work Phone: Comment on above: Expected: 03/06/2022, Expires: 3 Start: 03-06-2022 End: 05-06-2022 Bacteria identified in Wound by Culture [facility] Work Phone: Comment on above: Expected: 03/06/2022, Expires: 3 Start: 03-06-2022 End: 05-06-2022 CBC W Auto Differential panel - Blood CBC + DIFF Lab Routine 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) Uncontrolled type 2 diabetes mellitus with hyperglycemia (HCC) Expected: 03/06/2022, Expires: 05/06/2022 [facility] Work Phone: Comment on above: Expected: 03/06/2022, Expires: 3 Start: 03-06-2022 End: 05-06-2022 Comprehensive metabolic 2000 panel - Serum or Plasma COMP METABOLIC PANEL Lab Routine Essential hypertension 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) Mixed hyperlipidemia Uncontrolled type 2 diabetes mellitus with hyperglycemia (HCC) Expected: 03/06/2022, Expires: 05/06/2022 [facility] Work Phone: Comment on above: Expected: 03/06/2022, Expires: 3 Start: 03-06-2022 End: 05-06-2022 Hemoglobin A1c in Blood HGB A1C Lab Routine 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) Uncontrolled type 2 diabetes mellitus with hyperglycemia (HCC) Expected: 03/06/2022, Expires: 05/06/2022 [facility] Work Phone: Comment on above: Expected: 03/06/2022, Expires: 3 Start: 03-06-2022 End: 05-06-2022 LIPID PANEL, NONFASTING LIPID PANEL, NONFASTING Lab Routine Essential hypertension 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) Mixed hyperlipidemia Uncontrolled type 2 diabetes mellitus with hyperglycemia (HCC) Expected: 03/06/2022, Expires: 05/06/2022 [facility] Work Phone: Comment on above: Expected: 03/06/2022, Expires: 3 Start: 03-06-2022 End: 05-06-2022 Thyrotropin [Units/volume] in Serum or Plasma TSH BLD Lab Routine Multiple thyroid nodules Expected: 03/06/2022, Expires: 05/06/2022 [facility] Work Phone: Comment on above: Expected: 03/06/2022, Expires: 3 Start: 03-06-2022 End: 05-06-2022 Urinalysis complete panel - Urine URINALYSIS, WITH MICROSCOPIC Lab Routine Essential hypertension 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) Mixed hyperlipidemia Uncontrolled type 2 diabetes mellitus with hyperglycemia (HCC) Expected: 03/06/2022, Expires: 05/06/2022 [facility] Work Phone: Comment on above: Expected: 03/06/2022, Expires: 3 Start: 12-24-2021 End: 02-23-2022 25-hydroxyvitamin D3 [Mass/volume] in Serum or Plasma VITAMIN D 25 HYDROXY Lab Routine Hypercalcemia Expected: 12/24/2021, Expires: 02/23/2022 [facility] Work Phone: Comment on above: Expected: 12/24/2021, Expires: 2 Start: 12-24-2021 End: 02-23-2022 Calcium [Mass/volume] in Serum or Plasma CALCIUM TOTAL BLD Lab Routine Hypercalcemia Expected: 12/24/2021, Expires: 02/23/2022 [facility] Work Phone: Comment on above: Expected: 12/24/2021, Expires: 2 Start: 12-24-2021 End: 02-23-2022 Parathyrin.intact [Mass/volume] in Serum or Plasma PTH INTACT BLD Lab Routine Hypercalcemia Expected: 12/24/2021, Expires: 02/23/2022 [facility] Work Phone: Comment on above: Expected: 12/24/2021, Expires: 2 Start: 12-01-2021 Influenza vaccination INFLUENZA (#1) [facility] Start: 11-07-2021 End: 01-07-2022 Basic metabolic 2000 panel - Serum or Plasma BASIC METABOLIC PNL Lab Routine Chest pain, unspecified type Abnormal stress ECG with treadmill Expected: 11/07/2021, Expires: 01/07/2022 [facility] Work Phone: Comment on above: Expected: 11/07/2021, Expires: 2 Start: 11-07-2021 End: 01-07-2022 CBC panel - Blood by Automated count CBC Lab Routine Chest pain, unspecified type Abnormal stress ECG with treadmill Expected: 11/07/2021, Expires: 01/07/2022 [facility] Work Phone: Comment on above: Expected: 11/07/2021, Expires: 2 Start: 09-22-2021 End: 11-22-2021 Calcium [Mass/volume] in Serum or Plasma CALCIUM TOTAL BLD Lab Routine Hypercalcemia Expected: 09/22/2021, Expires: 11/22/2021 [facility] Work Phone: Comment on above: Expected: 09/22/2021, Expires: 2 Start: 09-22-2021 End: 11-22-2021 PTH INTACT BLD PTH INTACT BLD Lab Routine Hypercalcemia Expected: 09/22/2021, Expires: 11/22/2021 [facility] Work Phone: Comment on above: Expected: 09/22/2021, Expires: 2 Start: 09-20-2021 COVID-19 VACCINE (4 - Booster for Pfizer series) COVID-19 VACCINE (4 - Booster for Pfizer series) [facility] Start: 09-19-2021 Hemoglobin A1c/Hemoglobin.total in Blood HBA1C [facility] Start: 09-07-2021 End: 11-07-2021 ALBUMIN/CREAT RATIO RND UR [facility] Work Phone: Comment on above: Expected: 09/07/2021, Expires: 2 Start: 09-07-2021 End: 11-07-2021 Comprehensive metabolic 2000 panel - Serum or Plasma [facility] Work Phone: Comment on above: Expected: 09/07/2021, Expires: 2 Start: 09-07-2021 End: 11-07-2021 Hemoglobin A1c/Hemoglobin.total in Blood [facility] Work Phone: Comment on above: Expected: 09/07/2021, Expires: 2 Start: 09-07-2021 End: 11-07-2021 LIPID PANEL, NONFASTING [facility] Work Phone: Comment on above: Expected: 09/07/2021, Expires: 2 Start: 07-18-2021 COVID-19 VACCINE (4 - Booster for Pfizer series) COVID-19 VACCINE (4 - Booster for Pfizer series) [facility] Start: 04-02-2021 ADVANCE DIRECTIVE DISCUSSION ADVANCE DIRECTIVE DISCUSSION [facility] Start: 04-02-2021 DEPRESSION ASSESSMENT DEPRESSION ASSESSMENT [facility] Start: 08-09-2018 Glaucoma screening Dilated Retinal Exam [facility] Start: 08-09-2018 Hepatitis C antibody, confirmatory test DILATED RETINAL EXAM [facility] Start: 2017 RSV Vaccine (1 - 1-dose 75+ series) RSV Vaccine (1 - 1-dose 75+ series) [facility] Start: 2002 Hepatitis B Vaccine (1 of 3 - Risk 3-dose series) Hepatitis B Vaccine (1 of 3 - Risk 3-dose series) [facility] Start: 2002 RSV Vaccine (1 - 1-dose 60+ series) RSV Vaccine (1 - 1-dose 60+ series) [facility] Start: 02-07-1992 SHINGRIX VACCINE (1 of 2) SHINGRIX VACCINE (1 of 2) [facility] Start: 1961 SHINGRIX VACCINE (1 of 2) SHINGRIX VACCINE (1 of 2) [facility] Start: 02-07-1960 BP CONTROLLED (<130/80) BP CONTROLLED (<130/80) [facility] Start: 02-07-1960 Depression Screening Depression Screening [facility] Bacteria identified in Urine by Culture URINE CULTURE Microbiology Routine Burning with urination Ordered: 11/18/2021 [facility] Work Phone: Comment on above: Ordered: 11/18/2021 Bacteria identified in Urine by Culture URINE CULTURE Microbiology Routine Urgency incontinence 03/29/2024 3:50 PM EST [facility] Work Phone: Bacteria identified in Wound by Culture WOUND CULTURE AND GRAM STAIN Microbiology Routine Cellulitis of skin 03/17/2022 3:24 PM EST [facility] Work Phone: Bacteria identified in Wound by Culture ABSCESS AND WOUND CULTURE WITH GRAM STAIN Microbiology Routine Cellulitis and abscess of right leg 12/05/2022 5:15 PM EDT [facility] Work Phone: End: 05-15-2025 BD DXA TRABECULAR BONE SCORE (TBS) BD DXA TRABECULAR BONE SCORE (TBS) Radiology Routine Asymptomatic postmenopausal status 1 Occurrences starting 04/15/2024 until 05/15/2025 [facility] Comment on above: 1 Occurrences starting 04/15/2024 until 05/15/2025 End: 12-22-2022 CT BRAIN WO IVCON CT BRAIN WO IVCON Radiology Routine Headache, new daily persistent (NDPH) Tinnitus of both ears Hypoglycemia 1 Occurrences starting 11/22/2021 until 12/22/2022 [facility] Work Phone: Comment on above: 1 Occurrences starting 11/22/2021 until 12/22/2022 End: 05-15-2025 DXA Skeletal system.axial Views for bone density DXA-AXIAL SKELETON Radiology Routine Asymptomatic postmenopausal status 1 Occurrences starting 04/15/2024 until 05/15/2025 [facility] Comment on above: 1 Occurrences starting 04/15/2024 until 05/15/2025 DXA Skeletal system.axial Views for bone density DXA-AXIAL SKELETON Radiology Routine Asymptomatic postmenopausal status 05/23/2024 10:42 AM EST [facility] Work Phone: End: 10-24-2022 ECG COMPLETE ECG COMPLETE ECG Routine Chest pain, unspecified type Abnormal stress ECG with treadmill 1 Occurrences starting 10/24/2021 until 10/24/2022 [facility] Work Phone: Comment on above: 1 Occurrences starting 10/24/2021 until 10/24/2022 ECG COMPLETE ECG COMPLETE ECG 10/24/2021 9:55 AM EDT [facility] End: 06-18-2025 NM Whole body Bone Views NM BONE WHOLE BODY Radiology Routine Elevated alkaline phosphatase level 1 Occurrences starting 05/19/2024 until 06/18/2025 [facility] Work Phone: Comment on above: 1 Occurrences starting 05/19/2024 until 06/18/2025 OUTSIDE VENDOR CARDI AC OUTPATIENT EXTENDED RHYTHM RECORDING (WITHOUT TELEMETRY) OUTSIDE VENDOR CARDIAC OUTPATIENT EXTENDED RHYTHM RECORDING (WITHOUT TELEMETRY) Holter Routine Chest pain, unspecified type Abnormal stress ECG with treadmill Ordered: 10/24/2021 [facility] Work Phone: Comment on above: Ordered: 10/24/2021 Patient Education [facility] Work Phone: Patient referral [facility] Work Phone: End: 01-26-2023 Radex spine cervical 2 or 3 views XR CERVICAL 2V FLEX/EXT Radiology Routine Anterolisthesis of cervical spine 1 Occurrences starting 12/27/2021 until 01/26/2023 [facility] Work Phone: Comment on above: 1 Occurrences starting 12/27/2021 until 01/26/2023 End: 10-07-2022 SPIROMETRY - BASELINE AND POST DILATOR SPIROMETRY - BASELINE AND POST DILATOR PFT Routine SOB (shortness of breath) 1 Occurrences starting 09/07/2021 until 10/07/2022 [facility] Work Phone: Comment on above: 1 Occurrences starting 09/07/2021 until 10/07/2022 End: 05-17-2025 US Abdomen RUQ US ABD RIGHT UPPER QUADRANT Radiology Routine Elevated alkaline phosphatase level Elevated LFTs 1 Occurrences starting 04/17/2024 until 05/17/2025 [facility] Comment on above: 1 Occurrences starting 04/17/2024 until 05/17/2025 US Abdomen RUQ US ABD RIGHT UPP ER QUADRANT Radiology Routine Elevated alkaline phosphatase level Elevated LFTs 04/28/2024 10:41 AM Hymite [facility] Work Phone: End: 05-15-2025 US Thyroid gland US THYROID/PARATHYROID Radiology Routine Multiple thyroid nodules 1 Occurrences starting 04/15/2024 until 05/15/2025 [facility] Work Phone: Comment on above: 1 Occurrences starting 04/15/2024 until 05/15/2025 US Thyroid gland US THYROID/PARA THYROID Radiology Routine Multiple thyroid nodules 05/23/2024 11:10 AM Hymite [facility] Work Phone: End: 06-02-2025 US.doppler Extremity arteries - bilateral for physiologic artery study PVR ANK PRESS [facility] Vascular Lab Routine Ingrown toenail Diminished pulses in lower extremity 1 Occurrences starting 06/02/2024 until 06/02/2025 [facility] Work Phone: Comment on above: 1 Occurrences starting 06/02/2024 until 06/02/2025 [facility] Immunizations Immunization Date Immunization Notes Care Provider Jesse cifuentes 09-10-2024 COVID-19 vaccine, ag e 12+ yr (PFIZER-BIONTECH COMIRNATY) Sharona Bettencourt PA-C Work Phone: [facility] 01-01-2024 COVID-19 vaccine, unspecified formulation Sharona Bettencourt PA-C Work Phone: [facility] 01-01-2024 Seasonal trivalent influenza vaccine, adjuvanted, preservative free Sharona Bettencourt PA-C Work Phone: [facility] 01-01-2024 influenza virus vacc ine, unspecified formulation Sharona Bettencourt PA-C Work Phone: [facility] 04-12-2023 influenza (HD-IIV4) vaccine, age 65+ yr, high dose, quadrivalent, PF (FLUZONE HIGH-DOSE) Myah Brothers [facility] Work Phone: [facility] 04-12-2023 influenza virus vacc ine, unspecified formulation [facility] 10-10-2022 COVID-19 vaccine, ag e 12+ yr, bivalent (PFIZER-BIONTECH) Arturo Amaya MD Work Phone: [facility] 04-11-2022 influenza, high-dose , quadrivalent vaccine (FLUZONE HIGH DOSE QUADRIVALENT) Rasheed Chin APRN.[facility] Work Phone: [facility] 04-11-2022 influenza virus vacc ine, unspecified formulation Esperanza Heath [facility] Work Phone: [facility] 03-21-2021 influenza, high-dose , quadrivalent vaccine (FLUZONE HIGH DOSE QUADRIVALENT) Arturo Amaya MD Work Phone: [facility] 07-01-2020 COVID-19 vaccine, ag e 12+ yr (PFIZER-BIONTECH - PURPLE TOP) Arturo Amaya MD Work Phone: [facility] Work Phone: 06-10-2020 COVID-19 vaccine, ag e 12+ yr (PFIZER-[employer] - PURPLE TOP) Arturo Amaya MD Work Phone: [facility] Work Phone: 04-13-2020 influenza, high-dose , quadrivalent vaccine (FLUZONE HIGH DOSE QUADRIVALENT) Arturo Amaya MD Work Phone: [facility] 04-02-2018 influenza, injectabl e, quadrivalent, preservative free [facility] 04-02-2018 influenza, seasonal, injectable Dr. Arturo Amaya Work Phone: [facility] 07-03-2017 pneumococcal polysaccharide vaccine, 23 valent Arturo Amaya MD Work Phone: [facility] 03-30-2017 influenza, high dose seasonal, preservative-free Arturo Amaya MD Work Phone: [facility] 04-10-2016 pneumococcal conjuga te vaccine, 13 valent Arturo Amaya MD Work Phone: [facility] 02-07-[address] Arturo Amaya Work Phone: [facility] 01-07-2016 influenza, high dose seasonal, preservative-free Arturo Amaya MD Work Phone: [facility] 12-28-2015 tetanus toxoid, redu edilberto diphtheria toxoid, and acellular pertussis vaccine, adsorbed Arturo Amaya MD Work Phone: [facility] 04-27-2015 influenza, injectabl e, quadrivalent, contains preservative Arturo Amaya MD Work Phone: [facility] Work Phone: 03-01-[address] Arturo Amaya Work Phone: [facility] 01-19-2014 influenza, seasonal, injectable Arturo Amaya MD Work Phone: [facility] 02-21-[address] Arturo Amaya Work Phone: [facility] 02-20-2012 influenza virus vacc ine, unspecified formulation Arturo Amaya MD Work Phone: [facility] Work Phone: 04-10-2011 influenza virus vacc ine, unspecified formulation Arturo Amaya MD Work Phone: [facility] Work Phone: 02-23-2009 influenza virus vacc ine, unspecified formulation Arturo Amaya MD Work Phone: [facility] Work Phone: 03-18-2007 pneumococcal polysaccharide vaccine, 23 valent Arturo Amaya MD Work Phone: [facility] Work Phone: 10-11-2005 diphtheria and tetan us toxoids, adsorbed for pediatric use Arturo Amaya MD Work Phone: [facility] Work Phone: 10-11-2005 tetanus and diphther ia toxoids, adsorbed, preservative free, for adult use (2 Lf of tetanus toxoid and 2 Lf of diphtheria toxoid) Arturo Amaya MD Work Phone: [facility] Work Phone: 11-01-1999 diphtheria and tetan us toxoids, adsorbed for pediatric use Arturo Amaya MD Work Phone: [facility] Work Phone: 11-01-1999 tetanus and diphther ia toxoids, adsorbed, preservative free, for adult use (2 Lf of tetanus toxoid and 2 Lf of diphtheria toxoid) Arturo Amaya MD Work Phone: [facility] Work Phone: Payers Date Payer Category Payer Medicare (Managed Care) ERICA GONSALVES HMO [id number] 2020 Unknown ANTHEM BLUE CROS S AND BLUE SHIELD ANTHEM MEDIBLUE HMO [id number] 2020-Present [phone] [address] [place] [address] HMO [id number] 2020 Unknown [id number] 2020 Medicare [id number] 2017 Self-pay 2015 Unknown [id number] 2012 Medicare [id number] Medicare MEDICARE PART A B [id number] Unknown [id number] Unknown [id number] Unknown [id number] Unknown [id number] Unknown [id number] Unknown [id number] Unknown [id number] Social History Date Type Detail Facility Start: 11-18-2021 End: 08-21-2024 Tobacco smoking status NHIS Never smoked tobacco [facility] Work Phone: Start: 05-10-2021 End: 10-21-2024 Alcohol intake Current non-drinker of alcohol (finding) [facility] Start: 12-09-2015 End: 11-18-2021 Tobacco Comment 2nd hand [facility] Start: 1940 Sex Assigned At Not on file C [facility] Start: 03-27-2021 End: 12-26-2021 Exposure to SARS-CoV-2 (event) Not sure [facility] Work Phone: Start: 06-11-2021 End: 01-02-2022 Exposure to SARS-CoV-2 (event) Unable to assess [facility] Work Phone: Start: 12-09-2015 End: 11-18-2021 Tobacco use and exposure Smokeless tobacco non-user [facility] Work Phone: Start: 10-27-2021 End: 08-12-2023 Tobacco smoking status NHIS Unknown if ever smoked [facility] Start: 05-01-2021 Rare [facility] Start: 01-11-2020 None [facility] Start: 01-11-2020 Alone [facility] Start: 05-01-2021 Non-smoker [facility] Start: 1940 Sex Assigned At Female W [facility] Start: 09-25-2022 End: 10-10-2022 History of Social function [facility] Work Phone: Start: 09-25-2022 End: 10-10-2022 Tobacco use panel [facility] Work Phone: Adult Depression Screening Assessment 1 [facility] Work Phone: Start: 06-16-2024 Sex Female (finding) [facility] Medical Equipment Procedure Code Equipment Code Equipment Original Text Equipment Identifier Dates [id number], [id number], [id number], [id number], [id number], [id number] Start: 01-02-2020 End: 12-28-2024 Comment on above: Test blood sugar(s) 2 times daily. Dx: Type 2 DM - Uncontrolled E11.65 Insulin: No Functional Status Date Assessment Result Facility 04-24-2014 Are you deaf, or do you have serious difficulty hearing No 04/24/2014 3:26 PM Elizabeth Peterson (Aron)([email or web address] Work Phone: 04-24-2014 Are you blind, or do you have serious difficulty seeing, even when wearing glasses No 04/24/2014 3:26 PM Elizabeth Peterson (Aron)([facility] [[email or web address] No [facility] 04-24-2014 Do you have serious difficulty walking or climbing stairs No 04/24/2014 3:26 PM Elizabeth Peterson (Aron)([facility] [[email or web address] 04-24-2014 Do you have difficul ty dressing or bathing No 04/24/2014 3:26 PM Elizabeth Peterson (Aron)([facility] [[email or web address] 04-24-2014 Because of a physica l, mental, or emotional condition, do you have difficulty doing errands alone such as visiting a physician's office or shopping No 04/24/2014 3:26 PM Elizabeth Peterson (Aron)([facility] [[email or web address] No [facility] Mental Status Date Assessment Result Facility 08-21-2024 Cognitive function Level Of Cons ciousness Awake;Alert;Appropriate;Fo [employer] [facility] Work Phone: 04-22-2024 Cognitive function Level Of Cons ciousness Awake;Alert;Appropriate;Fo [employer] [facility] Work Phone: 08-12-2023 Cognitive function Level Of Cons ciousness Awake;Alert;Appropriate;Fo [employer] [facility] Work Phone: 12-07-2022 Cognitive function Level Of Cons ciousness Awake;Alert;Appropriate;[employer] [facility] Work Phone: 04-24-2014 Because of a physica l, mental, or emotional condition, do you have serious difficulty concentrating, remembering, or making decisions No 04/24/2014 3:26 PM Elizabeth Peterson)([facility] [[email or web address] No [facility] Clinical Notes 02-26-2009 to 10-29-2024 Reina Dhaliwal MA - 10/29/2024 4:59 PM EDTFXiang chu RPh - 10/22/2024 2:56 PM EDTTelephone Encounter - Sharona Bettencourt PA-C - 10/21/2024 2:03 PM EDTPatient InstructionsPatient Instructions Note Date & Type Note Facility 10-29-2024 Note HNO ID: [id number] Author: REINA DHALIWAL MA Service: ? Author Type: [employer] Type: Progress Notes Filed: 10/29/2024 17:00 Note Text: Cardio OV note - [facility]. Reina Dhaliwal MA Scan on 10/29/2024 2:02 PM by Provider, Marissa, SHANTHI: [facility] OV note [facility] 10-29-2024 History of Present illness Narrative Cardio OV note - [facility]. Reina Dhaliwal MA Scan on 10/29/2024 2:02 PM by Provider, Marissa, SHANTHI: [facility] OV note documented in this encounter [facility] 10-22-2024 History of Present illness Narrative Primary Care Pharmacy Panel Management This patient has been identified through [facility]ty [facility] Diabetes Registry Review by the primary care pharmacy team. Patient follows closely with endocrinology, next appt is upcoming on 11/05. PharmD has spoken with Christa strickland CNP, previously and she is open to PharmD collaboration with her patients. Will forward to her to consider placing PharmD referral at her upcoming visit in October. Xiang Ferrer RPh documented in this encounter [facility] 10-22-2024 Note HNO ID: [id number] Author: XIANG FERRER RPh Service: ? Author Type: Pharmacist Type: Progress Notes Filed: 10/22/2024 14:58 Note Text: Primary Care Pharmacy Panel Management This patient has been identified through Specialty Integration[facility] Diabetes Registry Review by the primary care pharmacy team. Patient follows closely with endocrinology, next appt is upcoming on 11/05. PharmD has spoken with Christa strickland CNP, previously and she is open to PharmD collaboration with her patients. Will forward to her to consider placing PharmD referral at her upcoming visit in October. Xiang Ferrer [facility] 10-22-2024 Note Patient Outreach ( MEWO) MARCI MARIE ([id number]) 1940 F DEF Date Time Provider Department 10/22/24 XIANG FERRER PHMEBENI During your visit today, we recorded the following information about you: Xiang Ferrer [facility] 10/22/2024 2:58 PM Signed Primary Care Pharmacy Panel Management This patient has been identified through Specialty Integration/[employer]-Based [employer] Diabetes Registry Review by the primary care pharmacy team. Patient follows closely with endocrinology, next appt is upcoming on 11/05. PharmD has spoken with Christa strickland CNP, previously and she is open to PharmD collaboration with her patients. Will forward to her to consider placing PharmD referral at her upcoming visit in October. Xiang Ferrer [facility] Allergies As of Date: 10/22/2024 Noted Allergy Reaction CODEINE 10/02/2003 2 - Rash PENICILLINS 10/02/2003 2 - Rash PIOGLITAZONE 07/03/2022 14 - Other: See Comments Comments: Increased leg edema and CHF symptoms PREDNISONE 10/02/2003 2 - Rash ACETAMINOPHEN 10/27/2021 14 - Other: See Comments CELEBREX (CELECOXIB) 11/26/2004 16 - Unknown NIACIN 10/02/2003 2 - Rash SULFA (SULFONAMIDE ANTIBIOTICS) 10/02/2003 2 - Rash Date Reviewed: 10/21/2024 Reviewed by: Poonam Roman LPN - Fully Assessed Prescriptions as of 10/22/2024 - amLODIPine (NORVASC) 5 mg tablet Take 1 tablet by mouth once daily. - sertraline (ZOLOFT) 50 mg tablet Take 1 tablet by mouth once daily. - busPIRone (BUSPAR) 5 mg tablet Take 1 tablet by mouth two times a day as needed. - cefADROxil (DURICEF) 500 mg capsule Take 1 capsule by mouth two times a day for 5 days. - ammonium lactate (LAC-HYDRIN) 12 % cream Apply to affected area as needed. - glimepiride (AMARYL) 4 mg tablet Take 1 tablet by mouth daily with dinner. - metFORMIN (GLUCOPHAGE) 500 mg tablet Take by mouth. take 2 tabs w/breakfast;1 tab with lunch and TWO tabs w/ dinner - Blood-Glucose Meter DISPENSE ONE METER. Insulin use. E11.9 - blood sugar diagnostic (BLOOD GLUCOSE TEST) test strip CHECK BLOOD SUGAR THREE TIMES DAILY - Lancets CHECK BLOOD SUGAR THREE TIME DAILY PRE MEAL. - insulin glargine (LANTUS SOLOSTAR U-100 INSULIN) 100 unit/mL (3 mL) Inject 10 Units subcutaneously daily at bedtime. - alendronate (FOSAMAX) 70 mg tablet Take 1 tablet by mouth one time a week. In AM with cup of water on empty stomach. Nothing else by mouth and stay upright for 30 min. - carvedilol (COREG) 6.25 mg tablet Take 1 tablet by mouth two times a day with meals. - Insulin [place], Disposable, (PEN NEEDLE) 32 gauge x 5/32 Inject 1 Each subcutaneously every 24 hours. Give with each insulin administration. - SITagliptin phosphate (JANUVIA) 100 mg tablet Take 1 tablet by mouth once daily. - lisinopril (ZESTRIL) 40 mg tablet Take 1 tablet by mouth two times a day. - hydroCHLOROthiazide 25 mg tablet Take 1 tablet by mouth once daily. - furosemide (LASIX) 40 mg tablet Take 1 tablet by mouth as needed. - nitroglycerin sublingual (NITROQUICK) 0.4 mg SL tablet Dissolve 1 tablet under the tongue as needed. FOR CHEST PAIN. IF NO RELIEF CALL 911 - Blood-Glucose Meter,Continuous (FREESTYLE KIRK 3 READER) [facility] Check blood sugars 3-4 times a day Dx: E11.65 no insulin - Blood-Glucose Sensor (FREESTYLE KIRK 3 SENSOR) em Apply a new sensor once every 2 weeks. Check blood sugars 3-4 times a day Dx: E11.65 no insulin - Cholecalciferol, Vitamin D3, 2,000 unit cap Take 3 capsules by mouth once daily. Problem List As Of Date 10/22/2024 Noted Resolved Diaphragmatic hernia without mention of obstruc* Herpes zoster [B02.9] Stricture and Stenosis of Esophagus [K22.2] Mixed Hyperlipidemia [E78.2] Controlled type 2 diabetes with neuropathy ([facility]*07/01/2007 Actinic Keratosis [L57.0] 02/26/2009 06/28/2009 Other Seborrheic Keratosis [L82.1] 02/26/2009 06/28/2009 Sun-Damaged Skin [L57.8] 02/26/2009 06/28/2009 Solar Lentigo [L81.4] 02/26/2009 06/28/2009 Scar Condition and Fibrosis of Skin [L90.5] 02/26/2009 06/28/2009 Personal history of other malignant neoplasm of*02/26/2009 Capillary Angioma [I78.1] 02/26/2009 06/28/2009 Xerosis Cutis [L85.3] 02/26/2009 06/28/2009 Venous Stasis [I87.8] 02/26/2009 06/28/2009 Age-related osteoporosis without current pathol*04/24/2011 Type 2 diabetes mellitus with proteinuria ([facility])*07/07/2013 Essential hypertension [I10] 07/13/2014 Routine gynecological examination [Z01.419] 07/21/2014 Gastroesophageal reflux disease with esophagiti*04/23/2015 Skin cancer, basal cell [C44.91] 04/23/2015 Bilateral leg edema [R60.0] 05/31/2015 Vitamin D deficiency [E55.9] 11/26/2015 Aortic stenosis, mild [I35.0] 12/02/2015 Venous (peripheral) insufficiency [I87.2] 12/21/2015 Morbid obesity with BMI of 40.0-44.9, adult (HC*06/19/2016 08/20/2023 Diabetic eye exam (HCC) [Z01.00, E11.9] 08/21/2016 Corns and callus [L84] (more content not included)... [facility] 10-21-2024 Telephone encounter Note Resent The following approved medication requests have been transmitted electronically. Requested Prescriptions Signed Prescriptions Disp Refills ammonium lactate (LAC-HYDRIN) 12 % cream 290 g 3 Sig: Apply to affected area as needed. Authorizing Provider: SHARONA BETTENCOURT PA-C [facility] 10-21-2024 Miscellaneous Notes Resent The following approved medication requests have been transmitted electronically. Requested Prescriptions Signed Prescriptions Disp Refills ammonium lactate (LAC-HYDRIN) 12 % cream 290 g 3 Sig: Apply to affected area as needed. Authorizing Provider: SHARONA BETTENCOURT PA-C Shira Pharmacist from [employer] and states that manufacture does not make Lac-Hydrin Five anymore. Manufactures do make 12%. Please review and advise, Nikki Patino RN documented in this encounter [facility] 10-21-2024 Telephone encounter Note Shira Pharmacist from [employer] and states that manufacture does not make Lac-Hydrin Five anymore. Manufactures do make 12%. Please review and advise, Nikki Patino RN [facility] 10-21-2024 Note HNO ID: [id number] Author: SHARONA BETTENCOURT PA-C Service: ? Author Type: Physician Clinical Nurse Manager Type: Progress Notes Filed: 10/21/2024 14:00 Note Text: Chief Complaint Patient presents with: Follow Up: medication HPI Marci Marie is a 84 year old female who presents here today for Above Complaints.. Lower Extremity Wounds: - Chronic wounds on bilateral lower extremities, attributed to diabetes. - Reports dryness, cracking, and sores on legs. - Has been using various lotions and AANDD ointment without significant improvement. - Previously seen by Dr. Eliezer Iglesias at [facility]; treatment included leg elevation and wrapping. - Insurance limited the number of visits to wound care. - Currently elevating legs and minimizing ambulation as advised. - Recently took three antibiotic pills at home to prevent infection. Depression: - Managed with sertraline and Buspar prn; reports improvement in symptoms. - Scheduled to see counseling on November 06; currently has monthly visits. on wait list for psychiatrist - Hearing from her son recently has also contributed to feeling better. 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 - Considering cochlear implant; decision appointment scheduled for next Sunday. - Still hears news broadcasts occasionally. Past medical history, appointments, medications, allergies reviewed. Previous Medical History PAST MEDICAL HISTORY Diagnosis Date Acquired deformity of left toe 03/21/2021 second and third digits Adjustment disorder with depressed mood 01/19/2020 Aortic stenosis, mild 12/02/[address] 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 Hiatal hernia History of colon polyps Mixed hyperlipidemia Morbid obesity with BMI of 40.0-44.9, adult (HCC) 06/19/2016 Multiple thyroid nodules 03/24/2021 US 03/2021: Needs yearly f/u for 5 yrs OAB (overactive bladder) 10/10/2022 Osteopenia 04/24/2011; Start vitamin d 1,000/day and RE-CHECK 2013 Personal history of other malignant neoplasm of skin 02/26/2009 Schatzki's ring Sebaceous cyst 07/03/2017 lower anterior neck Skin cancer, basal cell 04/23/2015 nose Stricture and stenosis of esophagus egd/dilatation by Dr. Hollins; Tinnitus of both ears 12/26/2021 Due to hearing loss. 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 Dr. Filemon Galvan. COLONOSCOPY SCRN NOT HIGH RISK 06/10/2003 upper and lower EGD 08/17/2009 Dr. Theo Hollins EGD DILATION 11/04/2018 Schatzi's Ring, mild reactive gastropathy. Dr. Filemon Galvan. ESOPHAGOGASTRODUODENOSCOPY TRANSORAL DIAGNOSTIC 06/2003 EGD EXERCISE ECG STRESS TEST 03/02/2020 negative NOSE SURGERY HX 2006 Nasal fracture repair REVISE MEDIAN N/CARPAL TUNNEL SURG Right 09/14/2022 TONSILLECTOMY AND ADENOIDECTOMY HX WRIST SURGERY HX 12/1988 Broken Left wrist surgery at [facility] - Dr. Delgado Family History FAMILY HISTORY Problem Relation Age of Onset Allergies Mother Heart Mother Asthma Mother Alzheimer's Disease Father Heart disease Father Hypertension Father Hypertension Maternal Grandmother DVT Maternal Grandmother Stroke Paternal Grandmother Stroke Paternal Grandfather Hypertension Brother Diabetes Brother Patient Allergies ALLERGIES Allergen Reactions Codeine Rash Penicillins Rash Pioglitazone Other: See Comments Increased leg edema and CHF symptoms Prednisone Rash Acetaminophen Other: See Comments Celebrex [Celecoxib] Unknown Niacin Rash Sulfa (Sulfonamide * Rash Current Medications (more content not included)... [facility] 10-21-2024 History of Present illness Narrative Chief Complaint Patient presents with: Follow Up: medication HPI Marci Marie is a 84 year old female who presents here today for Above Complaints.. Lower Extremity Wounds: - Chronic wounds on bilateral lower extremities, attributed to diabetes. - Reports dryness, cracking, and sores on legs. - Has been using various lotions and A&D ointment without significant improvement. - Previously seen by Dr. Eliezer Iglesias at [facility]; treatment included leg elevation and wrapping. - Insurance limited the number of visits to wound care. - Currently elevating legs and minimizing ambulation as advised. - Recently took three antibiotic pills at home to prevent infection. Depression: - Managed with sertraline and Buspar prn; reports improvement in symptoms. - Scheduled to see counseling on November 06; currently has monthly visits. on wait list for psychiatrist - Hearing from her son recently has also contributed to feeling better. 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 - Considering cochlear implant; decision appointment scheduled for next Sunday. - Still hears news broadcasts occasionally. Past medical history, appointments, medications, allergies reviewed. Previous Medical History PAST MEDICAL HISTORY Diagnosis Date Acquired deformity of left toe 03/21/2021 second and third digits Adjustment disorder with depressed mood 01/19/2020 Aortic stenosis, mild 12/02/[address] 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 Corns and callus 09/18/2016 Current severe episode of major depressive disorder with psychotic features without prior episode (HCC) 01/19/2020 Diabetic eye exam ([facility]) 08/21/2016 Last Done: 08/09/2017 No Retinopathy Diaphragmatic hernia without mention of obstruction or gangrene Diastolic congestive heart failure (HCC) 07/03/2022 Elevated alkaline phosphatase level 08/28/2018 Elevated serum GGT level 07/03/2017 Essential hypertension 07/13/2014 Foot callus 03/21/2021 SAMEER (generalized anxiety disorder) 09/05/2018 Gastroesophageal reflux disease with esophagitis 04/23/2015 Herpes zoster mild occasional neuralgia in left cervical area. Hiatal hernia History of colon polyps Mixed hyperlipidemia Morbid obesity with BMI of 40.0-44.9, adult ([facility]) 06/19/2016 Multiple thyroid nodules 03/24/2021 03/2021: Needs yearly f/u for 5 yrs OAB (overactive bladder) 10/10/2022 Osteopenia 04/24/2011; Start vitamin d 1,000/day and RE-CHECK 2013 Personal history of other malignant neoplasm of skin 02/26/2009 Schatzki's ring Sebaceous cyst 07/03/2017 lower anterior neck Skin cancer, basal cell 04/23/2015 nose Stricture and stenosis of esophagus egd/dilatation by Dr. Hollins; Tinnitus of both ears 12/26/2021 Due to hearing loss. Type 2 diabetes mellitus with proteinuria ([facility]) 07/07/2013 Uncontrolled type 2 diabetes mellitus with hyperglycemia ([facility]) 01/02/2020 Venous (peripheral) insufficiency 12/21/2015 Vitamin D deficiency 11/26/2015 Previous Surgical History PAST SURGICAL HISTORY Procedure Laterality Date 2D ECHO (EXEP) 12/02/2015 EF=59% mild LVH, mild MR,TR and 2D ECHO (EXEP) 02/13/2020 EF=65%, mild dilated LA, 1+ MR and CHOLECYSTECTOMY Cholecystectomy COLONOSCOPY 11/04/2018 Sessile serrated polyp, Tubullovillous adenoma. Dr. Filemon Galvan. COLONOSCOPY SCRN NOT HIGH RISK 06/10/2003 upper and lower EGD 08/17/2009 Dr. Theo Hollins EGD DILATION 11/04/2018 Schatzi's Ring, mild reactive gastropathy. Dr. Filemon Galvan. ESOPHAGOGASTRODUODENOSCOPY TRANSORAL DIAGNOSTIC 06/2003 EGD EXERCISE ECG STRESS TEST 03/02/2020 negative NOSE SURGERY HX 2006 Nasal fracture repair REVISE MEDIAN N/CARPAL TUNNEL SURG Right 09/14/2022 TONSILLECTOMY AND ADENOIDECTOMY HX WRIST SURGERY HX 12/1988 Broken Left wrist surgery at [facility] - Dr. Delgado Family History FAMILY HISTORY Problem Relation Age of Onset Allergies Mother Heart Mother Asthma Mother Alzheimer's Disease Father Heart disease Father Hypertension Father Hypertension Maternal Grandmother DVT Maternal Grandmother Stroke Paternal Grandmother Stroke Paternal Grandfather Hypertension Brother Diabetes Brother Patient Allergies ALLERGIES Allergen Reactions Codeine Rash Penicillins Rash Pioglitazone Other: See Comments Increased leg edema and CHF symptoms Prednisone Rash Acetaminophen Other: See Comments Celebrex [Celecoxib] Unknown Niacin Rash Sulfa (Sulfonamide * Rash Current Medications Current Outpatient Medications on File Prior to Visit Medication Sig glimepiride (AMARYL) 4 mg tablet Take 1 tablet by mouth daily with dinner. metFORMIN (GLUCOPHAGE) 500 mg tablet Take by mouth. take 2 tabs w/breakfast;1 tab with lunch and TWO tabs w/ dinner Blood-Glucose Meter DISPENSE ONE METER. Insulin use. E11.9 blood sugar diagnostic (BLOOD GLUCOSE TEST) test strip CHECK BLOOD SUGAR THREE TIMES DAILY alendronate (FOSAMAX) 70 mg tablet Take 1 tablet by mouth one time a week. In AM with cup of water on empty stomach. Nothing else by mouth and stay upright for 30 min. carvedilol (COREG) 6.25 mg tablet Take 1 tablet by mouth two times a day with meals. SITagliptin phosphate (JANUVIA) 100 mg tablet Take 1 tablet by mouth once daily. lisinopril (ZESTRIL) 40 mg tablet Take 1 tablet by mouth two times a day. hydroCHLOROthiazide 25 mg tablet Take 1 tablet by mouth once daily. furosemide (LASIX) 40 mg tablet Take 1 tablet by mouth as needed. Blood-Glucose Meter,Continuous (FREESTYLE KIRK 3 READER) [facility] [place] Check blood sugars 3-4 times a day Dx: E11.65 no insulin Lancets CHECK BLOOD SUGAR THREE TIME DAILY PRE MEAL. insulin glargine (LANTUS SOLOSTAR U-100 INSULIN) 100 unit/mL (3 mL) Inject 10 Units subcutaneously daily at bedtime. Insulin [place], Disposable, (PEN NEEDLE) 32 gauge x 5/32 Inject 1 Each subcutaneously every 24 hours. Give with each insulin administration. nitroglycerin sublingual (NITROQUICK) 0.4 mg SL tablet Dissolve 1 tablet under the tongue as needed. FOR CHEST PAIN. IF NO RELIEF CALL 911 Blood-Glucose Sensor (FREESTYLE KIRK 3 SENSOR) em Apply a new sensor once every 2 weeks. Check blood sugars 3-4 times a day Dx: E11.65 no insulin Cholecalciferol, Vitamin D3, 2,000 unit cap Take 3 capsules by mouth once daily. No current facility-administered medications on file prior to visit. Social History Social History Tobacco Use Smoking status: Never Smokeless tobacco: Never Tobacco comments: 2nd hand Vaping Use Vaping status: Never Used Substance Use Topics Alcohol use: No Drug use: No Review of Symptoms REVIEW OF SYSTEMS SEE HPI EXAM: BP 130/76 (BP Site: Left Arm, BP Position: Sitting, BP Cuff Size: Large Adult) Pulse 81 Temp 36.3 C (97.4 F) Resp 18 Wt 107 kg (236 lb) LMP (LMP Unknown) SpO2 96% BMI 40.04 kg/m General Appearance: Well appearing, alert, in no acute distress, well-hydrated, well nourished. obese. Extremities: +edema with small open sores. . Health Maintenance List Shingrix Vaccine(1 of 2) Never done RSV Vaccine(1 - 1-dose 75+ series) Never done Influenza Vaccine(1) due on 12/01/2024 HbA1C due on 12/11/2024 Dilated Retinal Exam due on 03/04/2025 Diabetic Foot Exam due on 04/15/2025 Depression Screening due on 04/15/2025 LDL Cholesterol due on 09/10/2025 DTaP,Tdap,Td Vaccine(5 - Td or Tdap) due on 12/27/2025 Bone Density Screening due on 05/23/2026 Medicare Advantage Annual Wellness Visit Completed Covid-19 Vaccine Completed Pneumococcal Vaccine: 50+ Completed Urine Albumin:Creatinine Ratio Discontinued Colorectal Cancer Screening Discontinued Advance Directive Discussion Discontinued Data reviewed N/a Assessment and Plan 1. Major depressive disorder, recurrent, moderate (HCC) (F33.1) 2. SAMEER (generalized anxiety disorder) (F41.1) - Symptoms improving with current medication regimen including sertraline and Viibryd. - Patient is scheduled to see psychiatry on November 06; currently seeing a counselor once a month. - Refilled sertraline and Viibryd prescriptions. 3. Essential hypertension (I10) - No discussion during this visit. 4. 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 Uncontrolled type 2 diabetes mellitus with hyperglycemia (HCC) (E11.65) 6. 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) (E11.29) - Chronic venous insufficiency and leg ulcers likely exacerbated by diabetes. - Continue current diabetes management. 7. Diastolic congestive heart failure, unspecified HF chronicity (HCC) (I50.30) - No discussion during this visit. 8. Venous insufficiency (chronic) (peripheral) (I87.2) - Chronic venous insufficiency with recurrent leg ulcers; previously managed by Dr. Eliezer Iglesias at [facility]. - Initiated a 5-day course of antibiotics to prevent infection. - Prescribed ammonium lactate lotion for skin hydration. - Advised to continue leg elevation and minimize ambulation as much as possible. Sharona Bettencourt PA-C Recording using [employer] software for draft documentation of the visit was discussed with the patient/authorized ambulatory services representative; all questions welcomed and answered. Patient/authorized ambulatory services representative agreed to proceed documented in this encounter [facility] 09-23-2024 Instructions Rasheed Chin APRN.RITA - 09/23/2024 3:28 PM EDT Start sertraline daily Start buspar twice daily as needed Follow up in 4 weeks documented in this encounter [facility] 09-23-2024 Note HNO ID: [id number] Author: RASHEED CHIN APRN.RITA Service: ? Author Type: Nurse Practitioner Type: Progress Notes Filed: 09/23/2024 15:37 Note Text: Chief Complaint Patient presents with: Depression Anxiety HPI Marci Marie is a 84 year old female who presents here today for Above Complaints. Patient presents for medication for depression and anxiety. Sees psychology at the counseling center and they advised she come to PCP for medication as psychiatrist has long waiting list. Patient is losing her hearing and her only option is surgery as hearing aids will not help her hearing loss. Past medical history, appointments, medications, allergies reviewed. Previous Medical History PAST MEDICAL HISTORY Diagnosis Date Acquired deformity of left toe 03/21/2021 second and third digits Adjustment disorder with depressed mood 01/19/2020 Aortic stenosis, mild 12/02/[address] 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 Corns and callus 09/18/2016 Current severe episode of major depressive disorder with psychotic features without prior episode ([facility]) 01/19/2020 Diabetic eye exam ([facility]) 08/21/2016 Last Done: 08/09/2017 No Retinopathy Diaphragmatic hernia without mention of obstruction or gangrene Diastolic congestive heart failure ([facility]) 07/03/2022 Elevated alkaline phosphatase level 08/28/2018 Elevated serum GGT level 07/03/2017 Essential hypertension 07/13/2014 Foot callus 03/21/2021 SAMEER (generalized anxiety disorder) 09/05/2018 Gastroesophageal reflux disease with esophagitis 04/23/2015 Herpes zoster mild occasional neuralgia in left cervical area. Hiatal hernia History of colon polyps Mixed hyperlipidemia Morbid obesity with BMI of 40.0-44.9, adult ([facility]) 06/19/2016 Multiple thyroid nodules 03/24/2021 03/2021: Needs yearly f/u for 5 yrs OAB (overactive bladder) 10/10/2022 Osteopenia 04/24/2011; Start vitamin d 1,000/day and RE-CHECK 2013 Personal history of other malignant neoplasm of skin 02/26/2009 Schatzki's ring Sebaceous cyst 07/03/2017 lower anterior neck Skin cancer, basal cell 04/23/2015 nose Stricture and stenosis of esophagus egd/dilatation by Dr. Hollins; Tinnitus of both ears 12/26/2021 Due to hearing loss. Type 2 diabetes mellitus with proteinuria ([facility]) 07/07/2013 Uncontrolled type 2 diabetes mellitus with hyperglycemia ([facility]) 01/02/2020 Venous (peripheral) insufficiency 12/21/2015 Vitamin D deficiency 11/26/2015 Previous Surgical History PAST SURGICAL HISTORY Procedure Laterality Date 2D ECHO (EXEP) 12/02/2015 EF=59% mild LVH, mild MR,TR and 2D ECHO (EXEP) 02/13/2020 EF=65%, mild dilated LA, 1+ MR and CHOLECYSTECTOMY Cholecystectomy COLONOSCOPY 11/04/2018 Sessile serrated polyp, Tubullovillous adenoma. Dr. Filemon Galvan. COLONOSCOPY SCRN NOT HIGH RISK 06/10/2003 upper and lower EGD 08/17/2009 Dr. Theo Hollins EGD DILATION 11/04/2018 Schatzi's Ring, mild reactive gastropathy. Dr. Filemon Galvan. ESOPHAGOGASTRODUODENOSCOPY TRANSORAL DIAGNOSTIC 06/2003 EGD EXERCISE ECG STRESS TEST 03/02/2020 negative NOSE SURGERY HX 2006 Nasal fracture repair REVISE MEDIAN N/CARPAL TUNNEL SURG Right 09/14/2022 TONSILLECTOMY AND ADENOIDECTOMY HX WRIST SURGERY HX 12/1988 Broken Left wrist surgery at [facility] - Dr. Delgado Family History FAMILY HISTORY Problem Relation Age of Onset Allergies Mother Heart Mother Asthma Mother Alzheimer's Disease Father Heart disease Father Hypertension Father Hypertension Maternal Grandmother DVT Maternal Grandmother Stroke Paternal Grandmother Stroke Paternal Grandfather Hypertension Brother Diabetes Brother Patient Allergies ALLERGIES Allergen Reactions Codeine Rash Penicillins Rash Pioglitazone Other: See Comments Increased leg edema and CHF symptoms Prednisone Rash Acetaminophen Other: See Comments Celebrex [Celecoxib] Unknown Niacin Rash Sulfa (Sulfonamide * Rash Current Medications Current Outpatient Medications on File Prior to Visit Medication Sig glimepiride (AMARYL) 4 mg tablet Take 1 tablet by mouth daily with dinner. metFORMIN (GLUCOPHAGE) 500 mg tablet Take by mouth. take 2 tabs w/breakfast;1 tab with lunch and TWO tabs w/ dinner Blood-Glucose Meter DISPENSE ONE METER. Insulin use. E11.9 blood sugar diagnostic (BLOOD GLUCOSE TEST) test strip CHECK BLOOD SUGAR THREE TIMES DAILY Lancets CHECK BLOOD SUGAR THREE TIME DAILY PRE MEAL. insulin glargine (LANTUS SOLOSTAR U-100 INSULIN) 100 unit/mL (3 mL) Inject 10 Units subcutaneously daily at bedtime. alendronate (FOSAMAX) 70 mg tablet Take 1 tablet by mouth one time a week. In AM with cup of water on empty stomach. Nothing else by mouth and stay upright for 30 min. car (more content not included)... [facility] 09-23-2024 History of Present illness Narrative Chief Complaint Patient presents with: Depression Anxiety HPI Marci Marie is a 84 year old female who presents here today for Above Complaints. Patient presents for medication for depression and anxiety. Sees psychology at the counseling center and they advised she come to PCP for medication as psychiatrist has long waiting list. Patient is losing her hearing and her only option is surgery as hearing aids will not help her hearing loss. Past medical history, appointments, medications, allergies reviewed. Previous Medical History PAST MEDICAL HISTORY Diagnosis Date Acquired deformity of left toe 03/21/2021 second and third digits Adjustment disorder with depressed mood 01/19/2020 Aortic stenosis, mild 12/02/[address] 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 Corns and callus 09/18/2016 Current severe episode of major depressive disorder with psychotic features without prior episode (HCC) 01/19/2020 Diabetic eye exam ([facility]) 08/21/2016 Last Done: 08/09/2017 No Retinopathy Diaphragmatic hernia without mention of obstruction or gangrene Diastolic congestive heart failure (HCC) 07/03/2022 Elevated alkaline phosphatase level 08/28/2018 Elevated serum GGT level 07/03/2017 Essential hypertension 07/13/2014 Foot callus 03/21/2021 SAMEER (generalized anxiety disorder) 09/05/2018 Gastroesophageal reflux disease with esophagitis 04/23/2015 Herpes zoster mild occasional neuralgia in left cervical area. Hiatal hernia History of colon polyps Mixed hyperlipidemia Morbid obesity with BMI of 40.0-44.9, adult ([facility]) 06/19/2016 Multiple thyroid nodules 03/24/2021 US 03/2021: Needs yearly f/u for 5 yrs OAB (overactive bladder) 10/10/2022 Osteopenia 04/24/2011; Start vitamin d 1,000/day and RE-CHECK 2013 Personal history of other malignant neoplasm of skin 02/26/2009 Schatzki's ring Sebaceous cyst 07/03/2017 lower anterior neck Skin cancer, basal cell 04/23/2015 nose Stricture and stenosis of esophagus egd/dilatation by Dr. Hollins; Tinnitus of both ears 12/26/2021 Due to hearing loss. Type 2 diabetes mellitus with proteinuria ([facility]) 07/07/2013 Uncontrolled type 2 diabetes mellitus with hyperglycemia ([facility]) 01/02/2020 Venous (peripheral) insufficiency 12/21/2015 Vitamin D deficiency 11/26/2015 Previous Surgical History PAST SURGICAL HISTORY Procedure Laterality Date 2D ECHO (EXEP) 12/02/2015 EF=59% mild LVH, mild MR,TR and 2D ECHO (EXEP) 02/13/2020 EF=65%, mild dilated LA, 1+ MR and CHOLECYSTECTOMY Cholecystectomy COLONOSCOPY 11/04/2018 Sessile serrated polyp, Tubullovillous adenoma. Dr. Filemon Galvan. COLONOSCOPY SCRN NOT HIGH RISK 06/10/2003 upper and lower EGD 08/17/2009 Dr. Theo Hollins EGD DILATION 11/04/2018 Schatzi's Ring, mild reactive gastropathy. Dr. Filemon Galvan. ESOPHAGOGASTRODUODENOSCOPY TRANSORAL DIAGNOSTIC 06/2003 EGD EXERCISE ECG STRESS TEST 03/02/2020 negative NOSE SURGERY HX 2006 Nasal fracture repair REVISE MEDIAN N/CARPAL TUNNEL SURG Right 09/14/2022 TONSILLECTOMY AND ADENOIDECTOMY HX WRIST SURGERY HX 12/1988 Broken Left wrist surgery at [facility] - Dr. Delgado Family History FAMILY HISTORY Problem Relation Age of Onset Allergies Mother Heart Mother Asthma Mother Alzheimer's Disease Father Heart disease Father Hypertension Father Hypertension Maternal Grandmother DVT Maternal Grandmother Stroke Paternal Grandmother Stroke Paternal Grandfather Hypertension Brother Diabetes Brother Patient Allergies ALLERGIES Allergen Reactions Codeine Rash Penicillins Rash Pioglitazone Other: See Comments Increased leg edema and CHF symptoms Prednisone Rash Acetaminophen Other: See Comments Celebrex [Celecoxib] Unknown Niacin Rash Sulfa (Sulfonamide * Rash Current Medications Current Outpatient Medications on File Prior to Visit Medication Sig glimepiride (AMARYL) 4 mg tablet Take 1 tablet by mouth daily with dinner. metFORMIN (GLUCOPHAGE) 500 mg tablet Take by mouth. take 2 tabs w/breakfast;1 tab with lunch and TWO tabs w/ dinner Blood-Glucose Meter DISPENSE ONE METER. Insulin use. E11.9 blood sugar diagnostic (BLOOD GLUCOSE TEST) test strip CHECK BLOOD SUGAR THREE TIMES DAILY Lancets CHECK BLOOD SUGAR THREE TIME DAILY PRE MEAL. insulin glargine (LANTUS SOLOSTAR U-100 INSULIN) 100 unit/mL (3 mL) Inject 10 Units subcutaneously daily at bedtime. alendronate (FOSAMAX) 70 mg tablet Take 1 tablet by mouth one time a week. In AM with cup of water on empty stomach. Nothing else by mouth and stay upright for 30 min. carvedilol (COREG) 6.25 mg tablet Take 1 tablet by mouth two times a day with meals. Insulin [place], Disposable, (PEN NEEDLE) 32 gauge x 5/32 Inject 1 Each subcutaneously every 24 hours. Give with each insulin administration. SITagliptin phosphate (JANUVIA) 100 mg tablet Take 1 tablet by mouth once daily. lisinopril (ZESTRIL) 40 mg tablet Take 1 tablet by mouth two times a day. hydroCHLOROthiazide 25 mg tablet Take 1 tablet by mouth once daily. furosemide (LASIX) 40 mg tablet Take 1 tablet by mouth as needed. amLODIPine (NORVASC) 5 mg tablet Take 1 tablet by mouth once daily. nitroglycerin sublingual (NITROQUICK) 0.4 mg SL tablet Dissolve 1 tablet under the tongue as needed. FOR CHEST PAIN. IF NO RELIEF CALL 911 Blood-Glucose Meter,Continuous (FREESTYLE KIRK 3 READER) misc Check blood sugars 3-4 times a day Dx: E11.65 no insulin Blood-Glucose Sensor (FREESTYLE KIRK 3 SENSOR) em Apply a new sensor once every 2 weeks. Check blood sugars 3-4 times a day Dx: E11.65 no insulin Cholecalciferol, Vitamin D3, 2,000 unit cap Take 3 capsules by mouth once daily. No current facility-administered medications on file prior to visit. Social History Social History Tobacco Use Smoking status: Never Smokeless tobacco: Never Tobacco comments: 2nd hand Vaping Use Vaping status: Never Used Substance Use Topics Alcohol use: No Drug use: No Review of Symptoms REVIEW OF SYSTEMS SEE HPI EXAM: BP 166/75 Pulse 80 Wt 105 kg (231 lb 7.7 oz) LMP (LMP Unknown) BMI 39.28 kg/m General Appearance: Well appearing, alert, in no acute distress, well-hydrated, well nourished.. Health Maintenance List Shingrix Vaccine(1 of 2) Never done RSV Vaccine(1 - 1-dose 75+ series) Never done HbA1C due on 12/11/2024 Dilated Retinal Exam due on 03/04/2025 Diabetic Foot Exam due on 04/15/2025 Depression Screening due on 04/15/2025 LDL Cholesterol due on 09/10/2025 DTaP,Tdap,Td Vaccine(5 - Td or Tdap) due on 12/27/2025 Bone Density Screening due on 05/23/2026 Influenza Vaccine Completed Medicare Advantage Annual Wellness Visit Completed Covid-19 Vaccine Completed Pneumococcal Vaccine: 50+ Completed Urine Albumin:Creatinine Ratio Discontinued Colorectal Cancer Screening Discontinued Advance Directive Discussion Discontinued Data reviewed SAMEER-7 09/23/2024 SAMEER-7 All Questions Feeling nervous, anxious, or on edge Nearly Everyday Not being able to stop or control worrying Nearly Everyday Worrying too much about different things Nearly Everyday Trouble relaxing Nearly Everyday Being so restless that it is hard to sit still Not at all Becoming easily annoyed or irritable Nearly Everyday Feeling afraid, as if something awful might happen Not at all SAMEER-7 Score 15 PHQ-9 More data exists 11/22/2021 04/11/2022 04/12/2023 04/15/2024 09/23/2024 PHQ-9 Scores Little interest or pleasure in doing things: Not at all Not at all Several days Not at all Not at all Nearly every day Feeling down, depressed, or hopeless: Not at all Several days Not at all Not at all Not at all Nearly every day Trouble falling or staying asleep, or sleeping too much - - - - Nearly every day Feeling tired or having little energy - - - - Nearly every day Poor appetite or overeating - - - - Nearly every day Feeling bad about yourself - or that you are a failure or have let yourself or your family down - - - - Nearly every day Trouble concentrating on things, such as reading the newspaper or watching television - - - - Not at all Moving or speaking so slowly that other people could have noticed. Or the opposite - being so fidgety or restless that you have been moving around a lot more than usual - - - - More than half the days Thoughts that you would be better off , or of hurting yourself in some way - - - - Not at all PHQ-9 Score - - - - 20 Details Multiple values from one day are sorted in reverse-chronological order ASSESSMENT/PLAN: 1. Major depressive disorder, recurrent, moderate (HCC) - ICD9: 296.32, ICD10: F33.1 (primary diagnosis) - SERTRALINE 50 MG TABLET 2. SAMEER (generalized anxiety disorder) - ICD9: 300.02, ICD10: F41.1 - SERTRALINE 50 MG TABLET - BUSPIRONE 5 MG TABLET Follow up in 4 weeks. Rasheed Chin APRN.DIESEL MAINTENANCE TECHNICIAN documented in this encounter [facility] 09-23-2024 Telephone encounter Note Pt calling in stating she is currently seeing [facility]. He asked her to reach out to her PCP as she needs to be put on medication for anxiety & depression. She is on the waiting list at the counseling center to see the psychiatrist but her counselor wants her to get started on meds now. Pt states she had a very bad weekend recently and decided to get help for herself. Pt booked for a 40 min appt with Rasheed Chin this afternoon at 320 pm. [facility] 09-23-2024 Miscellaneous Notes Pt calling in stating she is currently seeing counselor Mark Sangeetha [facility]. He asked her to reach out to her PCP as she needs to be put on medication for anxiety & depression. She is on the waiting list at the counseling center to see the psychiatrist but her counselor wants her to get started on meds now. Pt states she had a very bad weekend recently and decided to get help for herself. Pt booked for a 40 min appt with Rasheed Chin this afternoon at 320 pm. documented in this encounter [facility] 09-19-2024 Telephone encounter Note Letter mailed to pt home of results. Scarlet Jackson MA [facility] 09-19-2024 Miscellaneous Notes Letter mailed to pt home of results. Scarlet Jackson MA 3rd attempt to contact pt- Left message for patient to return call to office Torie Foster MA 2nd attempt to contact pt. Left message for patient to return call to office Torie Foster MA Called and left message on patients voicemail to return call to the office and ask to speak with a FM triage nurse. Reina Dhaliwal MA Please let patient know their potassium is normal. documented in this encounter [facility] 09-18-2024 Telephone encounter Note 3rd attempt to contact pt- Left message for patient to return call to office Torie Foster MA [facility] 09-16-2024 Telephone encounter Note 2nd attempt to contact pt. Left message for patient to return call to office Torie Foster MA [facility] 09-12-2024 Telephone encounter Note Called and left message on patients voicemail to return call to the office and ask to speak with a FM triage nurse. Reina Dhaliwal MA [facility] 09-12-2024 Telephone encounter Note Please let patient know their potassium is normal. [facility] Work Phone: 09-12-2024 Telephone encounter Note Pt called and is notified of providers results and instructions. Pt voices understanding. Pt states she will get K+ done today. Suzanna Pimentel, ARON [facility] 09-12-2024 Miscellaneous Notes Pt called and is notified of providers results and instructions. Pt voices understanding. Pt states she will get K+ done today. Suzanna Pimentel RN Left additional message for pt to contact office. Also left message with Liyah. She states she lives in [place] but will try to contact pt. Did not leave message with family members listed d/t there are some on going issues within the family pt had mentioned at ov. Poonam Roman LPN Left message for pt to contact office. Poonam Roman LPN Let patient know that A1c is still elevated but has come down some to 10.5%. Keep follow up with endocrinology on this. Her lipid panel was normal. Potassium is just slightly elevated. Potentially a lab error due to the way the blood is collected and sent to lab. But I need to recheck as soon as possible to make sure not a true elevation and that it's not worsening. We also need her to do the UA. Thanks. Sharona Bettencourt PA-C documented in this encounter [facility] 09-12-2024 Telephone encounter Note Left additional message for pt to contact office. Also left message with Liyah. She states she lives in [place] but will try to contact pt. Did not leave message with family members listed d/t there are some on going issues within the family pt had mentioned at ov. Poonam Roman LPN [facility] 09-11-2024 Telephone encounter Note Left message for pt to contact office. Poonam Roman LPN [facility] 09-11-2024 Telephone encounter Note Let patient know that A1c is still elevated but has come down some to 10.5%. Keep follow up with endocrinology on this. Her lipid panel was normal. Potassium is just slightly elevated. Potentially a lab error due to the way the blood is collected and sent to lab. But I need to recheck as soon as possible to make sure not a true elevation and that it's not worsening. We also need her to do the UA. Thanks. Sharona Bettencourt PA-C [facility] 09-10-2024 Instructions Sharona Bettencourt PA-C - 09/10/2024 9:32 AM EDT documented in this encounter [facility] 09-10-2024 Note HNO ID: [id number] Author: SHARONA BETTENCOURT PA-C Service: ? Author Type: Physician Clinical Nurse Manager Type: Progress Notes Filed: 09/10/2024 10:10 Note Text: Chief Complaint Patient presents with: Follow Up: Blood pressure HPI Marci Marie is a 84 year old female who presents here today for Chronic Medical Conditions.. Patient with complex history as below. Diabetes Mellitus: - Has not started insulin therapy due to concerns about managing dosage amidst current depression. - Issues with CGM adherence; device frequently detaches before the intended two-week period. - Insurance covers only two CGM devices per month; Marci unable to afford additional devices. - Reports chronic skin changes on lower extremities, described as rough skin with occasional pruritus and flaking. - Applies cream to lower extremities; has been advised by a lumber material handler that the skin condition is related to DM. - Denies current cellulitis; uses AANDD ointment on skin lesions. Depression: - Severe depressive episode three weeks ago, characterized by continuous crying over a weekend. - Has a history of discontinuing medications during depressive episodes. - Recently sought counseling; awaiting new medication regimen next . - Reports poor sleep quality, often getting only 3-4 hours per night. - Experiences nocturia around 03:00, followed by difficulty returning to sleep. - Reports feeling unsafe managing insulin therapy due to current mental state. 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 - 11 years ago; ongoing grief contributes to depression. - Stress from babysitting grandchildren; recently stopped due to safety concerns and health issues. Musical Ear Syndrome: - Diagnosed five years ago; symptoms include hearing music and news broadcasts. - Symptoms vary in intensity; can be so loud that it interferes with hearing the TV. - Scheduled to see Dr. Shah next week for further evaluation. - Believes that hearing aids may help alleviate symptoms; has not been able to afford them in the past. - Reports that the condition exacerbates depression. Cardiovascular Disease: - Last seen by automobile accessories installer Dr. Lamb approximately one year ago. - Has not been taking prescribed medication due to lapsed prescription and inability to schedule an appointment. - Reports edema in lower extremities; managed with hydrochlorothiazide and PRN Lasix. - Forgets to elevate legs at night, contributing to edema. Past medical history, appointments, medications, allergies reviewed. Previous Medical History PAST MEDICAL HISTORY Diagnosis Date Acquired deformity of left toe 03/21/2021 second and third digits Adjustment disorder with depressed mood 01/19/2020 Aortic stenosis, mild 12/02/[address] 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 prior episode ([facility]) 01/19/2020 Diabetic eye exam ([facility]) 08/21/2016 Last Done: 08/09/2017 No Retinopathy Diaphragmatic hernia without mention of obstruction or gangrene Diastolic congestive heart failure ([facility]) 07/03/2022 Elevated alkaline phosphatase level 08/28/2018 Elevated serum GGT level 07/03/2017 Essential hypertension 07/13/2014 Foot callus 03/21/2021 SAMEER (generalized anxiety disorder) 09/05/2018 Gastroesophageal reflux disease with esophagitis 04/23/2015 Herpes zoster mild occasional neuralgia in left cervical area. Hiatal hernia History of colon polyps Mixed hyperlipidemia Morbid obesity with BMI of 40.0-44.9, adult ([facility]) 06/19/2016 Multiple thyroid nodules 03/24/2021 US 03/2021: Needs yearly f/u for 5 yrs OAB (overactive bladder) 10/10/2022 Osteopenia 04/24/2011; Start vitamin d 1,000/day and RE-CHECK 2013 Personal history of other malignant neoplasm of skin 02/26/2009 Schatzki's ring Sebaceous cyst 07/03/2017 lower anterior neck Skin cancer, basal cell 04/23/2015 nose Stricture and stenosis of esophagus egd/dilatation by Dr. Hollins; Tinnitus of both ears 12/26/2021 Due to hearing loss. Type 2 diabetes mellitus with proteinuria ([facility]) 07/07/2013 Uncontrolled type 2 diabetes mellitus with hyperglycemia ([facility]) 01/02/2020 Venous (peripheral) insufficiency 12/21/2015 Vitamin D deficiency 11/26/2015 Previous Surgical History PAST SURGICAL HISTORY Procedure Laterality Date 2D ECHO (EXEP) 12/02/2015 EF=59% mild LVH, mild MR,TR and 2D ECHO (EXEP) 02/13/2020 EF=65%, mild dilated LA, 1+ MR and CHOLECYSTECTOMY Cholecystectomy COLONOSCOPY 11/04/2018 Sessile serrated polyp, Tubullovillous adenoma. Dr. Filemon Galvan. COLONOSCOPY SCRN NOT HIG (more content not included)... [facility] 09-10-2024 History of Present illness Narrative Chief Complaint Patient presents with: Follow Up: Blood pressure HPI Marci Marie is a 84 year old female who presents here today for Chronic Medical Conditions.. Patient with complex history as below. Diabetes Mellitus: - Has not started insulin therapy due to concerns about managing dosage amidst current depression. - Issues with CGM adherence; device frequently detaches before the intended two-week period. - Insurance covers only two CGM devices per month; Marci unable to afford additional devices. - Reports chronic skin changes on lower extremities, described as rough skin with occasional pruritus and flaking. - Applies cream to lower extremities; has been advised by a lumber material handler that the skin condition is related to DM. - Denies current cellulitis; uses A&D ointment on skin lesions. Depression: - Severe depressive episode three weeks ago, characterized by continuous crying over a weekend. - Has a history of discontinuing medications during depressive episodes. - Recently sought counseling; awaiting new medication regimen next . - Reports poor sleep quality, often getting only 3-4 hours per night. - Experiences nocturia around 03:00, followed by difficulty returning to sleep. - Reports feeling unsafe managing insulin therapy due to current mental state. 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 - 11 years ago; ongoing grief contributes to depression. - Stress from babysitting grandchildren; recently stopped due to safety concerns and health issues. Musical Ear Syndrome: - Diagnosed five years ago; symptoms include hearing music and news broadcasts. - Symptoms vary in intensity; can be so loud that it interferes with hearing the TV. - Scheduled to see Dr. Shah next week for further evaluation. - Believes that hearing aids may help alleviate symptoms; has not been able to afford them in the past. - Reports that the condition exacerbates depression. Cardiovascular Disease: - Last seen by automobile accessories installer Dr. Lamb approximately one year ago. - Has not been taking prescribed medication due to lapsed prescription and inability to schedule an appointment. - Reports edema in lower extremities; managed with hydrochlorothiazide and PRN Lasix. - Forgets to elevate legs at night, contributing to edema. Past medical history, appointments, medications, allergies reviewed. Previous Medical History PAST MEDICAL HISTORY Diagnosis Date Acquired deformity of left toe 03/21/2021 second and third digits Adjustment disorder with depressed mood 01/19/2020 Aortic stenosis, mild 12/02/[address] 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 prior episode ([facility]) 01/19/2020 Diabetic eye exam ([facility]) 08/21/2016 Last Done: 08/09/2017 No Retinopathy Diaphragmatic hernia without mention of obstruction or gangrene Diastolic congestive heart failure ([facility]) 07/03/2022 Elevated alkaline phosphatase level 08/28/2018 Elevated serum GGT level 07/03/2017 Essential hypertension 07/13/2014 Foot callus 03/21/2021 SAMEER (generalized anxiety disorder) 09/05/2018 Gastroesophageal reflux disease with esophagitis 04/23/2015 Herpes zoster mild occasional neuralgia in left cervical area. Hiatal hernia History of colon polyps Mixed hyperlipidemia Morbid obesity with BMI of 40.0-44.9, adult ([facility]) 06/19/2016 Multiple thyroid nodules 03/24/2021 US 03/2021: Needs yearly f/u for 5 yrs OAB (overactive bladder) 10/10/2022 Osteopenia 04/24/2011; Start vitamin d 1,000/day and RE-CHECK 2013 Personal history of other malignant neoplasm of skin 02/26/2009 Schatzki's ring Sebaceous cyst 07/03/2017 lower anterior neck Skin cancer, basal cell 04/23/2015 nose Stricture and stenosis of esophagus egd/dilatation by Dr. Hollins; Tinnitus of both ears 12/26/2021 Due to hearing loss. Type 2 diabetes mellitus with proteinuria ([facility]) 07/07/2013 Uncontrolled type 2 diabetes mellitus with hyperglycemia ([facility]) 01/02/2020 Venous (peripheral) insufficiency 12/21/2015 Vitamin D deficiency 11/26/2015 Previous Surgical History PAST SURGICAL HISTORY Procedure Laterality Date 2D ECHO (EXEP) 12/02/2015 EF=59% mild LVH, mild MR,TR and 2D ECHO (EXEP) 02/13/2020 EF=65%, mild dilated LA, 1+ MR and CHOLECYSTECTOMY Cholecystectomy COLONOSCOPY 11/04/2018 Sessile serrated polyp, Tubullovillous adenoma. Dr. Filemon Galvan. COLONOSCOPY SCRN NOT HIGH RISK 06/10/2003 upper and lower EGD 08/17/2009 Dr. Theo Hollins EGD DILATION 11/04/2018 Schatzi's Ring, mild reactive gastropathy. Dr. Filemon Galvan. ESOPHAGOGASTRODUODENOSCOPY TRANSORAL DIAGNOSTIC 06/2003 EGD EXERCISE ECG STRESS TEST 03/02/2020 negative NOSE SURGERY HX 2006 Nasal fracture repair REVISE MEDIAN N/CARPAL TUNNEL SURG Right 09/14/2022 TONSILLECTOMY AND ADENOIDECTOMY HX WRIST SURGERY HX 12/1988 Broken Left wrist surgery at [facility] - Dr. Delgado Family History FAMILY HISTORY Problem Relation Age of Onset Allergies Mother Heart Mother Asthma Mother Alzheimer's Disease Father Heart disease Father Hypertension Father Hypertension Maternal Grandmother DVT Maternal Grandmother Stroke Paternal Grandmother Stroke Paternal Grandfather Hypertension Brother Diabetes Brother Patient Allergies ALLERGIES Allergen Reactions Codeine Rash Penicillins Rash Pioglitazone Other: See Comments Increased leg edema and CHF symptoms Prednisone Rash Acetaminophen Other: See Comments Celebrex [Celecoxib] Unknown Niacin Rash Sulfa (Sulfonamide * Rash Current Medications Current Outpatient Medications on File Prior to Visit Medication Sig Blood-Glucose Meter DISPENSE ONE METER. Insulin use. E11.9 blood sugar diagnostic (BLOOD GLUCOSE TEST) test strip CHECK BLOOD SUGAR THREE TIMES DAILY Lancets CHECK BLOOD SUGAR THREE TIME DAILY PRE MEAL. alendronate (FOSAMAX) 70 mg tablet Take 1 tablet by mouth one time a week. In AM with cup of water on empty stomach. Nothing else by mouth and stay upright for 30 min. carvedilol (COREG) 6.25 mg tablet Take 1 tablet by mouth two times a day with meals. Insulin [place], Disposable, (PEN NEEDLE) 32 gauge x 5/32 Inject 1 Each subcutaneously every 24 hours. Give with each insulin administration. SITagliptin phosphate (JANUVIA) 100 mg tablet Take 1 tablet by mouth once daily. lisinopril (ZESTRIL) 40 mg tablet Take 1 tablet by mouth two times a day. hydroCHLOROthiazide 25 mg tablet Take 1 tablet by mouth once daily. furosemide (LASIX) 40 mg tablet Take 1 tablet by mouth as needed. amLODIPine (NORVASC) 5 mg tablet Take 1 tablet by mouth once daily. nitroglycerin sublingual (NITROQUICK) 0.4 mg SL tablet Dissolve 1 tablet under the tongue as needed. FOR CHEST PAIN. IF NO RELIEF CALL 911 Cholecalciferol, Vitamin D3, 2,000 unit cap Take 3 capsules by mouth once daily. insulin glargine (LANTUS SOLOSTAR U-100 INSULIN) 100 unit/mL (3 mL) Inject 10 Units subcutaneously daily at bedtime. Blood-Glucose Meter,Continuous (FREESTYLE KIRK 3 READER) misc Check blood sugars 3-4 times a day Dx: E11.65 no insulin Blood-Glucose Sensor (FREESTYLE KIRK 3 SENSOR) em Apply a new sensor once every 2 weeks. Check blood sugars 3-4 times a day Dx: E11.65 no insulin No current facility-administered medications on file prior to visit. Social History Social History Tobacco Use Smoking status: Never Smokeless tobacco: Never Tobacco comments: 2nd hand Vaping Use Vaping status: Never Used Substance Use Topics Alcohol use: No Drug use: No Review of Symptoms REVIEW OF SYSTEMS SEE HPI EXAM: BP 117/67 (BP Site: Right Arm, BP Position: Sitting, BP Cuff Size: Regular Adult) Pulse 76 Temp 36.4 C (97.5 F) Resp 18 Wt 103.9 kg (229 lb) LMP (LMP Unknown) SpO2 96% BMI 38.86 kg/m General Appearance: No acute distress, well-hydrated, well nourished. and Obese. Neck: Supple, no adenopathy; thyroid symmetric, normal size, no bruits. Lungs: Lungs clear to auscultation. No wheezing, rhonchi, rales.. Heart: RRR with murmur, gallop, or rubs. No ectopy. Extremities: +edema b/l with small open sores on right medial calf.. Peripheral Pulses: Normal. Health Maintenance List Shingrix Vaccine(1 of 2) Never done RSV Vaccine(1 - 1-dose 75+ series) Never done HbA1C due on 07/14/2024 Dilated Retinal Exam due on 03/04/2025 LDL Cholesterol due on 04/15/2025 Diabetic Foot Exam due on 04/15/2025 Depression Screening due on 04/15/2025 DTaP,Tdap,Td Vaccine(5 - Td or Tdap) due on 12/27/2025 Bone Density Screening due on 05/23/2026 Influenza Vaccine Completed Medicare Advantage Annual Wellness Visit Completed Covid-19 Vaccine Completed Pneumococcal Vaccine: 50+ Completed Urine Albumin:Creatinine Ratio Discontinued Colorectal Cancer Screening Discontinued Advance Directive Discussion Discontinued Data reviewed N/a Assessment and Plan 1. Type 2 diabetes mellitus with peripheral neuropathy (HCC) (E11.42) 2. Uncontrolled type 2 diabetes mellitus with hyperglycemia (HCC) (E11.65) 3. 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) (E11.29) - Patient has not initiated insulin therapy due to concerns about managing dosages amidst current depressive symptoms. - Difficulty maintaining continuous glucose monitor (CGM) adherence due to device detachment; insurance covers only two devices per month. - Follow-up with endocrinology scheduled for October. - Will contact endocrinology to discuss current management and CGM issues. 4. Essential hypertension (I10) - Blood pressure management ongoing. - Continue current antihypertensive regimen. 5. Mixed hyperlipidemia (E78.2) - Continue current lipid-lowering therapy. 6. Vitamin D deficiency (E55.9) - Continue current vitamin D supplementation. 7. Tinnitus of both ears (H93.13) 8. Auditory hallucination (R44.0) 9. 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 - Scheduled to see Dr. Shah next week to discuss potential treatments, including hearing aids with white noise capabilities. - Discussed the potential benefits of hearing aids in reducing symptoms. 10. Adjustment disorder with depressed mood (F43.21) 11. Major depressive disorder, recurrent, moderate (HCC) (F33.1) 12. Insomnia due to mental disorder (F51.05) - Recent exacerbation of depressive symptoms; initiated counseling. - Experiencing insomnia, potentially related to auditory hallucinations. - Awaiting new medication regimen to be determined next . - Continue counseling and follow-up with mental health provider. 13. Encounter for immunization (Z23) covid vaccine given. 14. Age-related osteoporosis without current pathological fracture (M81.0) recently started on medication 15. Multiple thyroid nodules (E04.2) US recently stable 16. OAB (overactive bladder) (N32.81) no new concerns 17. Gastroesophageal reflux disease with esophagitis without hemorrhage (K21.00) stable 18. Aortic stenosis, mild (I35.0) f/u with cardiology 19. SAMEER (generalized anxiety disorder) (F41.1) continue with psych 20. Diastolic congestive heart failure, unspecified HF chronicity (HCC) (I50.30) - Managed with hydrochlorothiazide and prn Lasix. - Noted edema and skin changes on lower extremities; applying A&D ointment. - No recent follow-up with cardiology; last seen by Dr. Lamb over a year ago. - Will contact cardiology to discuss current status and need for follow-up. Monitor leg wounds. Consider wound therapy if not healing. Patient has been applying ointment and wrapping as needed. Sharona Bettencourt PA-C Recording using [employer] software for draft documentation of the visit was discussed with the patient/authorized ambulatory services representative; all questions welcomed and answered. Patient/authorized ambulatory services representative agreed to proceed I spent a total of 40 minutes on the date of the service which included preparing to see the patient, [id number] patient care, completing clinical documentation, obtaining and/or reviewing separately obtained history, performing a medically appropriate examination, counseling and educating the patient/family/caregiver, ordering medications, tests, or procedures, and communicating results to the patient/family/caregiver. documented in this encounter [facility] 09-05-2024 Note HNO ID: [id number] Author: MALIA SIMONS, ? Service: ? Author Type: Physician Type: Progress Notes Filed: 09/05/2024 13:59 Note Text: Last saw pcp: 05/14/24 Subjective: Patient presents to clinic c/o painful toenails. They state that the nails are especially painful with shoe gear and pressure. Patient states that nails right hallux are painful. Patient admits to being diabetic. No other pedal complaints at this time. Patient states no change in medications or medical history since last visit. Objective: Patient presents to clinic ambulating in sneakers Vasc: DP and PT pulses are faintly palpable bilateral. CFT is less than 5 seconds bilateral. Skin temperature is warm to cool proximal to distal bilateral. There is mild edema or varicosities noted. Ruborous discoloration is noted b/l. Non-Invasive Vascular Laboratory [facility] Lower Extremity Arterial Physiology Study Bilateral/Complete Date of service/time: 07/09/2024 11:10:30 AM Name: MRS. MARCI MARIE Date of : 1940 Age: 84 years Gender: F Clinical Indication Abnormal pulses. TECHNIQUE -------- An arterial physiological examination was performed, including measurement of blood pressures using continuous wave Doppler and recording of plethysmographic with or without Doppler waveforms at the below-mentioned limb segments. FINDINGS -------- RIGHT SIDE AT REST Right Doppler Waveforms Dorsalis pedis: Multiphasic. Post tibial: Multiphasic. Right Pressures Brachial: 146 mmHg Ankle dorsalis pedis: 141 mmHg ANDRES: 0.97 Ankle posterior tibial: 156 mmHg ANDRES: 1.07 Digit: 105 mmHg Right PVR Waveforms Ankle: Mildly dampened. LEFT SIDE AT REST Left Doppler Waveforms Dorsalis pedis: Multiphasic. Post tibial: Multiphasic. Left Pressures Brachial: 140 mmHg Ankle dorsalis pedis: 138 mmHg ANDRES: 0.95 Ankle posterior tibial: 133 mmHg ANDRES: 0.91 Digit: 88 mmHg Left PVR Waveforms Ankle: Mildly dampened. IMPRESSION Irregular cardiac rhythm noted. RIGHT SIDE Resting right ankle brachial index: 1.07 Right toe brachial index: 0.72 Normal ankle brachial index at rest in the right leg. Normal toe brachial index at rest in the right leg. Right ankle: Normal at rest. LEFT SIDE Resting left ankle brachial index: 0.95 Left toe brachial index: 0.60 Abnormal toe brachial index at rest is evidence of peripheral artery disease. Borderline abnormal ankle brachial index at rest. Left ankle: Borderline abnormal at rest. Technologist: Ninoska Arriola RVT Ordering physician: MALIA SIMONS Interpreting physician: JUANA Guevara DO Neuro: Protective sensation is decreased to the foot and toes when tested with the 5.07 SWM bilateral. Vibratory sensation is absent at the hallux IPJ bilateral. The hallux is downgoing bilateral. Derm: Nails 1-5 b/l are painful, discolored-yellow, thick, crumbly, dystrophic and with subungal debris. Ingrowing toenail of right hallux but no signs of infection. Skin is of normal turgor, texture and hair growth is absent bilateral. There are callus to left 3rd metatarsal head. Ortho: Muscle strength is 5/5 for all pedal groups tested. Ankle joint DF is decreased with the knee extended with no pain or crepitus noted. 1st MPJ ROM is decreased bilateral. Assessment: (B35.1) Onychomycosis (primary encounter diagnosis) (L60.0) Onychocryptosis (M79.675) Pain in toe of left foot (M79.674) Pain in toe of right foot (E11.42) Diabetic polyneuropathy associated with type 2 diabetes mellitus (HCC) (L60.0) Ingrown toenail Plan: Patient was seen and evaluated. Nails 1-5 bilateral were debrided in length and thickness. Right hallux nail is ingrowing and I treated this with slant back. Small bleed present and band aide applied. Call with any issues. Could give consideration into permanent nail removal in the future. Callus reduced to left foot with dremmel Patient was instructed on the continued importance of diabetic foot care along with proper diet and keeping their blood sugar under control to prevent complications. I stressed the importance of avoiding barefoot walking, wearing good shoes and inspection of feet daily. Patient is to RTC in 3-4 months. Malia Simons DPM [facility] 09-05-2024 History of Present illness Narrative Last saw pcp: 05/14/24 Subjective: Patient presents to clinic c/o painful toenails. They state that the nails are especially painful with shoe gear and pressure. Patient states that nails right hallux are painful. Patient admits to being diabetic. No other pedal complaints at this time. Patient states no change in medications or medical history since last visit. Objective: Patient presents to clinic ambulating in sneakers Vasc: DP and PT pulses are faintly palpable bilateral. CFT is less than 5 seconds bilateral. Skin temperature is warm to cool proximal to distal bilateral. There is mild edema or varicosities noted. Ruborous discoloration is noted b/l. Non-Invasive Vascular Laboratory [facility] Lower Extremity Arterial Physiology Study Bilateral/Complete Date of service/time: 07/09/2024 11:10:30 AM Name: MRS. MARCI MARIE Date of : 1940 Age: 84 years Gender: F Clinical Indication Abnormal pulses. TECHNIQUE -------- An arterial physiological examination was performed, including measurement of blood pressures using continuous wave Doppler and recording of plethysmographic with or without Doppler waveforms at the below-mentioned limb segments. FINDINGS -------- RIGHT SIDE AT REST Right Doppler Waveforms Dorsalis pedis: Multiphasic. Post tibial: Multiphasic. Right Pressures Brachial: 146 mmHg Ankle dorsalis pedis: 141 mmHg ANDRES: 0.97 Ankle posterior tibial: 156 mmHg ANDRES: 1.07 Digit: 105 mmHg Right PVR Waveforms Ankle: Mildly dampened. LEFT SIDE AT REST Left Doppler Waveforms Dorsalis pedis: Multiphasic. Post tibial: Multiphasic. Left Pressures Brachial: 140 mmHg Ankle dorsalis pedis: 138 mmHg ANDRES: 0.95 Ankle posterior tibial: 133 mmHg ANDRES: 0.91 Digit: 88 mmHg Left PVR Waveforms Ankle: Mildly dampened. IMPRESSION Irregular cardiac rhythm noted. RIGHT SIDE Resting right ankle brachial index: 1.07 Right toe brachial index: 0.72 Normal ankle brachial index at rest in the right leg. Normal toe brachial index at rest in the right leg. Right ankle: Normal at rest. LEFT SIDE Resting left ankle brachial index: 0.95 Left toe brachial index: 0.60 Abnormal toe brachial index at rest is evidence of peripheral artery disease. Borderline abnormal ankle brachial index at rest. Left ankle: Borderline abnormal at rest. Technologist: Ninoksa Arriola T Ordering physician: MALIA SIMONS Interpreting physician: JUANA Guevara DO Neuro: Protective sensation is decreased to the foot and toes when tested with the 5.07 SWM bilateral. Vibratory sensation is absent at the hallux IPJ bilateral. The hallux is downgoing bilateral. Derm: Nails 1-5 b/l are painful, discolored-yellow, thick, crumbly, dystrophic and with subungal debris. Ingrowing toenail of right hallux but no signs of infection. Skin is of normal turgor, texture and hair growth is absent bilateral. There are callus to left 3rd metatarsal head. Ortho: Muscle strength is 5/5 for all pedal groups tested. Ankle joint DF is decreased with the knee extended with no pain or crepitus noted. 1st MPJ ROM is decreased bilateral. Assessment: (B35.1) Onychomycosis (primary encounter diagnosis) (L60.0) Onychocryptosis (M79.675) Pain in toe of left foot (M79.674) Pain in toe of right foot (E11.42) Diabetic polyneuropathy associated with type 2 diabetes mellitus (HCC) (L60.0) Ingrown toenail Plan: Patient was seen and evaluated. Nails 1-5 bilateral were debrided in length and thickness. Right hallux nail is ingrowing and I treated this with slant back. Small bleed present and band aide applied. Call with any issues. Could give consideration into permanent nail removal in the future. Callus reduced to left foot with dremmel Patient was instructed on the continued importance of diabetic foot care along with proper diet and keeping their blood sugar under control to prevent complications. I stressed the importance of avoiding barefoot walking, wearing good shoes and inspection of feet daily. Patient is to RTC in 3-4 months. Malia Simons DPM AMB ROOMING INTAKE FLOWSHEET DATA Patient presents with: Left Foot - Diabetic Foot Care, Established Patient, Follow Up, Numbness Right Foot - Diabetic Foot Care, Established Patient, Follow Up, Numbness Karen Knowles LPN documented in this encounter [facility] 09-05-2024 Instructions Malia Simons - 09/05/2024 1:43 PM EDT Diabetes Foot Care Instructions When you have diabetes, proper foot care is very important. Poor foot care may lead to amputation of a foot or leg. As a person with diabetes, you are more vulnerable to foot problems, because diabetes can damage your nerves and reduce blood flow to your feet. Here are some diabetes foot care tips to follow: Wash and Dry Your Feet Daily Use mild soaps Use warm water Pat your skin dry; do not rub. Thoroughly dry your feet. After washing, use lotion on your feet to prevent cracking. Do not put lotion between your toes. Examine Your Feet Each Day Check the tops and bottoms of your feet. Have someone else look at your feet if you cannot see them. Check for dry, cracked skin. Look for blisters, cuts, scratches, or other sores. Check for redness, increased warmth, or tenderness when touching any area of your feet. Check for ingrown toenails, corns, and calluses. If you get a blister or sore from your shoes, do not pop it. Apply a bandage and wear a different pair of shoes. Take Care of Your Toenails Cut toenails after bathing, when they are soft. Cut toenails straight across and smooth with a nail file. Avoid cutting into the corners of toes. Do not cut cuticles. If you have neuropathy (or decreased sensation in your feet) a director of brand marketing should always cut your toenails. Be Careful When Exercising Walk and exercise in comfortable shoes. Do not exercise when you have open sores on your feet. Protect Your Feet With Shoes and Socks Never go barefoot. Always protect your feet by wearing shoes or hard-soled slippers or footwear. Avoid shoes with high heels and pointed toes. Avoid shoes that expose your toes or heels (such as open-toed shoes or sandals). These types of shoes increase your risk for injury and potential infections. Try on new footwear with the type of socks you usually wear. Do not wear new shoes for more than an hour at a time. Change your socks daily. Look and feel inside your shoes before putting them on to make sure there are no foreign objects or rough areas. Avoid tight socks. Wear natural-fiber socks (cotton, wool, or a cotton-wool blend). Wear special shoes if your health care provider recommends them. Wear shoes/boots that will protect your feet from various weather conditions (cold, moisture, etc.). Make sure your shoes fit properly. If you have neuropathy (nerve damage), you may not notice that your shoes are too tight. Perform the footwear test described below. Footwear Test Use this simple test to see if your shoes fit correctly: Stand on a piece of paper. (Make sure you are standing and not sitting, because your foot changes shape when you stand.) Trace the outline of your foot. Trace the outline of your shoe. Compare the tracings: Is the shoe too narrow? Is your foot crammed into the shoe? The shoe should be at least 1/2 inch longer than your longest toe and as wide as your foot. Proper Shoe Choices The following types of shoes are best for people with diabetes Closed toes and heels Leather uppers without a seam inside At least 1/2 inch extra space at the end of your longest toe Inside of shoe should be soft with no rough areas Outer sole should be made of stiff material Shoes should be at least as wide as your feet Tips for Foot Care in Diabetes Don't wait to treat a minor foot problem if you have diabetes. Follow your health care provider's guidelines and first aid guidelines. Report foot injuries and infections to your health care provider immediately. Check water temperature with your elbow, not your foot. Do not use a heating pad on your feet. Do not cross your legs. Do not self-treat your corns, calluses, or other foot problems. Go to your health care provider or director of brand marketing to treat these conditions. You had ingrowing toenail of right great toe. I don't feel this was athlete's foot. I think rather, it was the beginning of an ingrown toenail. I managed to cut this back. Apply topical antibiotic on the toe daily for the next few days until healed. If you have any issues, contact the office. Could give consideration into removal of the toenail in the future. documented in this encounter [facility] 09-05-2024 Note HNO ID: [id number] Author: KAREN KNOWLES LPN Service: ? Author Type: LICENSED NURSE Type: Progress Notes Filed: 09/05/2024 13:59 Note Text: AMB ROOMING INTAKE FLOWSHEET DATA Patient presents with: Left Foot - Diabetic Foot Care, Established Patient, Follow Up, Numbness Right Foot - Diabetic Foot Care, Established Patient, Follow Up, Numbness Karen Knowles LPN [facility] 08-14-2024 History of Present illness Narrative Primary Care Pharmacy Panel Management This patient has been identified through [facility] [employer] Diabetes Registry Review by the primary care pharmacy team. After review, determined that the patient is not a candidate for pharmacy referral at this time due to follows closely with Endo. Xiang Ferrer RPh documented in this encounter [facility] 08-14-2024 Note HNO ID: [id number] Author: XIANG FERRER RPh Service: ? Author Type: Pharmacist Type: Progress Notes Filed: 08/14/2024 11:24 Note Text: Primary Care Pharmacy Panel Management This patient has been identified through [employer] [employer] Diabetes Registry Review by the primary care pharmacy team. After review, determined that the patient is not a candidate for pharmacy referral at this time due to follows closely with Endo. Xiang Ferrer RPh [facility] 08-14-2024 Note Patient Outreach (JOSE CELAYAO) MARCI MARIE ([id number]) 1940 F DEF Date Time Provider Department 08/14/24 XIANG FERRER PHMEBENI During your visit today, we recorded the following information about you: Xiang Ferrer RPh 08/14/2024 11:24 AM Signed Primary Care Pharmacy Panel Management This patient has been identified through [facility] [employer] Diabetes Registry Review by the primary care pharmacy team. After review, determined that the patient is not a candidate for pharmacy referral at this time due to follows closely with Endo. Xiang Ferrer [facility] Allergies As of Date: 08/14/2024 Noted Allergy Reaction CODEINE 10/02/2003 2 - Rash PENICILLINS 10/02/2003 2 - Rash PIOGLITAZONE 07/03/2022 14 - Other: See Comments Comments: Increased leg edema and CHF symptoms PREDNISONE 10/02/2003 2 - Rash ACETAMINOPHEN 10/27/2021 14 - Other: See Comments CELEBREX (CELECOXIB) 11/26/2004 16 - Unknown NIACIN 10/02/2003 2 - Rash SULFA (SULFONAMIDE ANTIBIOTICS) 10/02/2003 2 - Rash Date Reviewed: 06/26/2024 Reviewed by: Xiao Thurman, RT(R) - Partially Assessed Prescriptions as of 08/14/2024 - Blood-Glucose Meter DISPENSE ONE METER. Insulin use. E11.9 - blood sugar diagnostic (BLOOD GLUCOSE TEST) test strip CHECK BLOOD SUGAR THREE TIMES DAILY - Lancets CHECK BLOOD SUGAR THREE TIME DAILY PRE MEAL. - insulin glargine (LANTUS SOLOSTAR U-100 INSULIN) 100 unit/mL (3 mL) Inject 10 Units subcutaneously daily at bedtime. - alendronate (FOSAMAX) 70 mg tablet Take 1 tablet by mouth one time a week. In AM with cup of water on empty stomach. Nothing else by mouth and stay upright for 30 min. - carvedilol (COREG) 6.25 mg tablet Take 1 tablet by mouth two times a day with meals. - Insulin [place], Disposable, (PEN NEEDLE) 32 gauge x 5/32 Inject 1 Each subcutaneously every 24 hours. Give with each insulin administration. - SITagliptin phosphate (JANUVIA) 100 mg tablet Take 1 tablet by mouth once daily. - lisinopril (ZESTRIL) 40 mg tablet Take 1 tablet by mouth two times a day. - hydroCHLOROthiazide 25 mg tablet Take 1 tablet by mouth once daily. - furosemide (LASIX) 40 mg tablet Take 1 tablet by mouth as needed. - glimepiride (AMARYL) 2 mg tablet Take 1 tablet by mouth daily with dinner. - amLODIPine (NORVASC) 5 mg tablet Take 1 tablet by mouth once daily. - metFORMIN (GLUCOPHAGE) 500 mg tablet Take by mouth. take 2 tabs w/breakfast;1 tab with lunch and TWO tabs w/ dinner - nitroglycerin sublingual (NITROQUICK) 0.4 mg SL tablet Dissolve 1 tablet under the tongue as needed. FOR CHEST PAIN. IF NO RELIEF CALL 911 - Blood-Glucose Meter,Continuous (FREESTYLE KIRK 3 READER) misc Check blood sugars 3-4 times a day Dx: E11.65 no insulin - Blood-Glucose Sensor (FREESTYLE KIRK 3 SENSOR) em Apply a new sensor once every 2 weeks. Check blood sugars 3-4 times a day Dx: E11.65 no insulin - Cholecalciferol, Vitamin D3, 2,000 unit cap Take 3 capsules by mouth once daily. 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 Actinic Keratosis [L57.0] 02/26/2009 06/28/2009 Other Seborrheic Keratosis [L82.1] 02/26/2009 06/28/2009 Sun-Damaged Skin [L57.8] 02/26/2009 06/28/2009 Solar Lentigo [L81.4] 02/26/2009 06/28/2009 Scar Condition and Fibrosis of Skin [L90.5] 02/26/2009 06/28/2009 Personal history of other malignant neoplasm of*02/26/2009 Capillary Angioma [I78.1] 02/26/2009 06/28/2009 Xerosis Cutis [L85.3] 02/26/2009 06/28/2009 Venous Stasis [I87.8] 02/26/2009 06/28/2009 Age-related osteoporosis without current pathol*04/24/2011 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)*07/07/2013 Essential hypertension [I10] 07/13/2014 Routine gynecological examination [Z01.419] 07/21/2014 Gastroesophageal reflux disease with esophagiti*04/23/2015 Skin cancer, basal cell [C44.91] 04/23/2015 Bilateral leg edema [R60.0] 05/31/2015 Vitamin D deficiency [E55.9] 11/26/2015 Aortic stenosis, mild [I35.0] 12/02/2015 Venous (peripheral) insufficiency [I87.2] 12/21/2015 Morbid obesity with BMI of 40.0-44.9, adult (HC*06/19/2016 08/20/2023 Diabetic eye exam (HCC) [Z01.00, E11.9] 08/21/2016 Corns and callus [L84] 09/18/2016 Screening for colon cancer [Z12.11] 07/03/2017 Sebaceous cyst [L72.3] 07/03/2017 Elevated serum GGT level [R74.8] 07/03/2017 Microscopic hematuria [R31.29] 08/28/2018 Elevated alkaline phosphatase level [R74.8] 08/28/2018 Uncontrolled type 2 diabetes mellitus with hype*01/02/2020 Adjustment disorder with depressed mood [F43.21]01/19/2020 SAMEER (generalized anxiety disorder) [F41.1] 01/19/2020 Medicare annual wellness visit, subsequent [Z00*03/21/2021 Foot call (more content not included)... [facility] 08-07-2024 Telephone encounter Note The patient has been identified by name and date of : Yes Caregiver verified no other encounters exist for this prescription request: Yes Caregiver confirmed with patient/requestor that no other refills are due, in the near future, with this provider at this time: Yes The last office visit in the department: 05/14/2024 Does the patient have a future office visit with this provider/department: 08/18/2024 Requested Prescriptions Pending Prescriptions Disp Refills fluconazole (DIFLUCAN) 150 mg tablet 2 tablet 0 Sig: Take 1 tablet by mouth one time only for 1 dose. Repeat in 3 days as needed. Patient reports history of yeast infection. Symptoms for over a week. Jessika Ayers RN August 07, 2024 9:16 AM [facility] 08-07-2024 Miscellaneous Notes The patient has been identified by name and date of : Yes Caregiver verified no other encounters exist for this prescription request: Yes Caregiver confirmed with patient/requestor that no other refills are due, in the near future, with this provider at this time: Yes The last office visit in the department: 05/14/2024 Does the patient have a future office visit with this provider/department: 08/18/2024 Requested Prescriptions Pending Prescriptions Disp Refills fluconazole (DIFLUCAN) 150 mg tablet 2 tablet 0 Sig: Take 1 tablet by mouth one time only for 1 dose. Repeat in 3 days as needed. Patient reports history of yeast infection. Symptoms for over a week. Jessika Ayers RN August 07, 2024 9:16 AM documented in this encounter [facility] 07-30-2024 Telephone encounter Note Called patient to provide below results. No response. Left VM. Karen Knowles LPN [facility] Work Phone: 07-30-2024 Miscellaneous Notes Called patient to provide below results. No response. Left VM. Karen Knowles LPN Message on voice mail to return call: Please give the message below from provider: Malia Simons to [facility] 07/10/24 8:05 AM Please call patient to inform her that her circulation on right foot is normal. The circulation however on the left foot is decreased. We can review these results at follow-up. I certainly would not recommend any removal of the toenails unless she was seen by vascular prior Malia Simons DPM documented in this encounter [facility] 07-11-2024 Telephone encounter Note Pt notified. Scarlet Jackson MA [facility] 07-11-2024 Miscellaneous Notes Pt notified. Scarlet Jackson MA Left message for patient to return call to office Torie Foster MA Please let patient know her bone scan shows fx of left fifth rib likely from recent fall and general degenerative findings throughout her joints. documented in this encounter [facility] 07-10-2024 Telephone encounter Note Message on voice mail to return call: Please give the message below from provider: Malia Simons to [facility] Pool 07/10/24 8:05 AM Please call patient to inform her that her circulation on right foot is normal. The circulation however on the left foot is decreased. We can review these results at follow-up. I certainly would not recommend any removal of the toenails unless she was seen by vascular prior Malia Simons DPM [facility] 07-08-2024 Telephone encounter Note Left message for patient to return call to office Torie Foster MA [facility] 07-04-2024 Telephone encounter Note Please let patient know her bone scan shows fx of left fifth rib likely from recent fall and general degenerative findings throughout her joints. [facility] Work Phone: 07-02-2024 Telephone encounter Note Patient calls to request the results of her whole body bone scan. Patient aware we will call with provider response once reviewed. Patient requests call back at [phone]. Jessika Ayers RN [facility] 07-02-2024 Miscellaneous Notes Patient calls to request the results of her whole body bone scan. Patient aware we will call with provider response once reviewed. Patient requests call back at [phone]. Jessika Ayers RN documented in this encounter [facility] 06-26-2024 History of Present illness Narrative RADIOLOGY SERVICE PROGRESS NOTE SERVICE DATE: 06/26/2024 SERVICE TIME: 08:25 AM PATIENT IDENTITY VERIFICATION COMPLETED USING TWO (2) STANDARD IDENTIFIERS: Name and Date of confirmed by patient verbally FALL SCREENING: Has the patient had 2 falls in the last year or 1 fall with injury or currently using an Ambulatory Assistive Device (Walker, Cane, Wheelchair, Crutches, etc.)? Yes, Patient High Risk for Falls What interventions were put in place to prevent falls during this visit? Instructed Patient to Call for Help if Needed, Offered Assistance with Transfers/Clothing, Instructed Patient to Remain Seated (Not on Exam Table) Until Exam, Increased Observations by Caregivers, Patient Refused Interventions/Assistance, and Escorted to/from Restroom PATIENT GENDER DATA: .female : No ALLERGIES: Reviewed and unchanged MEDICATIONS REVIEWED: No PATIENT RELEVANT IMPLANT DATA REVIEWED: Not Applicable PATIENT PRESENTS WITH AN IMPLANTABLE OR ATTACHED PRE BILLING SPECIALIST: No CREATININE: Creatinine Date Value Ref Range Status 04/15/2024 0.65 0.58 - 0.96 mg/dL Final 08/11/2023 0.61 0.58 - 0.96 mg/dL Final 09/26/2022 0.81 0.58 - 0.96 mg/dL Final Estimated Glomerular Filtration Rate Date Value Ref Range Status 04/15/2024 88 >=60 mL/min/1.73m Final Comment: Estimated Glomerular Filtration Rate (eGFR) is calculated using the 2020 CKD-EPI creatinine equation. This equation utilizes serum creatinine, sex, and age as parameters. The creatinine assay has traceable calibration to isotope dilution-mass spectrometry. Refer to KDIGO guidelines for clinical interpretation. In patients with unstable renal function, e.g. those with acute kidney injury, the eGFR may not accurately reflect actual GFR. eGFR- Date Value Ref Range Status 03/21/2021 >60 Final P.O.C.T. RESULTS: N/A June 26, [address] PERFORMED: No IV SITE: Ambulatory: A peripheral IV was started in the Right antecubital site with a Angio cath: 24 gauge. POST EXAM PIV STATUS: Discontinued PROCEDURE TYPE: NM INJECT: Whole Body Bone Scan. 22.2 mCi Tc99m MDP. No other medications given.. ADMINISTRATION TIME: 08:35 PATIENT DISCHARGED TO: Ambulatory patient, left [place] department area. Is this a therapy: No A Diagnostic radioactive procedure has taken place, with no further precautions necessary other than routine body substance precautions. More information regarding radiation safety can be found using this link: [email or web address] %[email or web address] SIGNATURE: ARI Quiles) PATIENT NAME: Marci Marie DATE: June 26, 2024 TIME: 08:48 AM PAGER/CONTACT #: documented in this encounter [facility] 06-26-2024 Note HNO ID: [id number] Author: XIAO THURMAN RT(R) Service: Nuclear Medicine Author Type: Technologist Type: Progress Notes Filed: 06/26/2024 09:49 Note Text: RADIOLOGY SERVICE PROGRESS NOTE SERVICE DATE: 06/26/2024 SERVICE TIME: 08:25 AM PATIENT IDENTITY VERIFICATION COMPLETED USING TWO (2) STANDARD IDENTIFIERS: Name and Date of confirmed by patient verbally FALL SCREENING: Has the patient had 2 falls in the last year or 1 fall with injury or currently using an Ambulatory Assistive Device (Walker, Cane, Wheelchair, Crutches, etc.)? Yes, Patient High Risk for Falls What interventions were put in place to prevent falls during this visit? Instructed Patient to Call for Help if Needed, Offered Assistance with Transfers/Clothing, Instructed Patient to Remain Seated (Not on Exam Table) Until Exam, Increased Observations by Caregivers, Patient Refused Interventions/Assistance, and Escorted to/from Restroom PATIENT GENDER DATA: .female : No ALLERGIES: Reviewed and unchanged MEDICATIONS REVIEWED: No PATIENT RELEVANT IMPLANT DATA REVIEWED: Not Applicable PATIENT PRESENTS WITH AN IMPLANTABLE OR ATTACHED PRE BILLING SPECIALIST: No CREATININE: Creatinine Date Value Ref Range Status 04/15/2024 0.65 0.58 - 0.96 mg/dL Final 08/11/2023 0.61 0.58 - 0.96 mg/dL Final 09/26/2022 0.81 0.58 - 0.96 mg/dL Final Estimated Glomerular Filtration Rate Date Value Ref Range Status 04/15/2024 88 >=60 mL/min/1.73m? Final Comment: Estimated Glomerular Filtration Rate (eGFR) is calculated using the 2020 CKD-EPI creatinine equation. This equation utilizes serum creatinine, sex, and age as parameters. The creatinine assay has traceable calibration to isotope dilution-mass spectrometry. Refer to KDIGO guidelines for clinical interpretation. In patients with unstable renal function, e.g. those with acute kidney injury, the eGFR may not accurately reflect actual GFR. eGFR- Date Value Ref Range Status 03/21/2021 >60 Final P.O.C.T. RESULTS: N/A June 26, [address] PERFORMED: No IV SITE: Ambulatory: A peripheral IV was started in the Right antecubital site with a Angio cath: 24 gauge. POST EXAM PIV STATUS: Discontinued PROCEDURE TYPE: NM INJECT: Whole Body Bone Scan. 22.2 mCi Tc99m MDP. No other medications given.. ADMINISTRATION TIME: 08:35 PATIENT DISCHARGED TO: Ambulatory patient, left [place] department area. Is this a therapy: No A Diagnostic radioactive procedure has taken place, with no further precautions necessary other than routine body substance precautions. More information regarding radiation safety can be found using this link: [email or web address] 20Diagnostic%20Nuclear%20Medicine% 20Procedures.pdf SIGNATURE: RT Kb(R) PATIENT NAME: Marci Marie DATE: June 26, 2024 TIME: 08:48 AM PAGER/CONTACT #: [facility] 06-25-2024 Telephone encounter Note Reason for Call: Patient calling back after a missed call; Patient denies any new or worsening symptoms of which a provider is not aware: Yes. Appointment tab reviewed and patient confirms she does have 2 appointments tomorrow at 8 am and 11 am. No notes found regarding a specific call/message for patient; Patient reassured this was likely an automated appointment reminder. Outcome: Patient encouraged to call back if she misses another call or if any further needs arise. [facility] 06-25-2024 Miscellaneous Notes Reason for Call: Patient calling back after a missed call; Patient denies any new or worsening symptoms of which a provider is not aware: Yes. Appointment tab reviewed and patient confirms she does have 2 appointments tomorrow at 8 am and 11 am. No notes found regarding a specific call/message for patient; Patient reassured this was likely an automated appointment reminder. Outcome: Patient encouraged to call back if she misses another call or if any further needs arise. documented in this encounter [facility] 06-18-2024 Note HNO ID: [id number] Author: JUDITH PARRISH MA Service: ? Author Type: Battery Container Tester Aluminum Type: Progress Notes Filed: 06/18/2024 18:49 Note Text: Scan on 06/17/2024 12:22 AM by Marissa Thomas PA-C: Consultation - Emergency Medicine Judith Parrish MA [facility] 06-18-2024 History of Present illness Narrative Scan on 06/17/2024 12:22 AM by Marissa Thomas PA-C: Consultation - Emergency Medicine Judith Parrish MA documented in this encounter [facility] 06-16-2024 Radiology Diagnostic study note [facility] Imaging Services [address] [place] [address] Chest without Contrast MR#: [id number] Acct: [id number] Name: MARCI MARIE Rep #: [id number] : 1940 84 From: Nura Ochoa MD PCP: Dr. Arturo Amaya MD Status: REG ER Study:Chest without Contrast Date of Exam: 06/16/24 Exam# [id number] Ordering Dr: Pau Loo DO PROCEDURE: CHEST WITHOUT CONTRAST 06/16/2024 REASON FOR EXAM: RIB INJURY TECHNIQUE: Axial chest CT without contrast. Axial and sagittal reconstructions performed. COMPARISON: None. FINDINGS: Mild motion degraded examination Demineralization does limit sensitivity. Scattered multilevel degenerative discdisease in the thoracic spine The heart size is enlarged. There are aortic valve calcification. Small sliding hiatal hernia. Mild motion degraded examination. No pneumothorax or pleural effusion. Bibasilar atelectasis. Ascending aorta measures 3.5 cm Hepatic steatosis. Cholecystectomy changes. Robust upper abdominal vascular calcification. 5 mm left midpole stone. Parapelvic cysts seen in both kidneys. CT/Chest without Contrast IMPRESSION: No definite rib fracture is seen. Please note demineralization does limit sensitivity. Robust vascular calcification. Small sliding hiatal hernia. Patchy bibasilar atelectasis. Cardiac enlargement Reading Location: [facility] CC: Dr. Richard Loo DO; Dr. Arturo Amaya MD ~ Charging Plug Placer: Signed [facility] 06-16-2024 Radiology Diagnostic study note [facility] Imaging Services [address] [place] [id number] Spine Cervical without Contras MR#: [id number] Acct: [id number] Name: MARCI MARIE Rep #: [id number] : 1940 84 From: Nura Ochoa MD PCP: Dr. Arturo Amaya MD Status: REG ER Study:Spine Cervical without Contras Date of Exam: 06/16/24 Exam# [id number] Ordering Dr: Pau Loo DO PROCEDURE: SPINE CERVICAL WITHOUT CONTRAS 06/16/2024 REASON FOR EXAM: TRAUMA TECHNIQUE: Cervical spine CT without contrast. Coronal and Sagittal reconstruction series were provided. One or more dose reduction techniques were used (e.g., Automated exposure control, adjustment of the mA and/or kV according to patient size, use of iterative reconstruction technique COMPARISON: None. FINDINGS: Demineralization of the bones. This limits sensitivity. No evidence of acute fracture or malalignment. Tortuous vascularity. Scattered mild degenerative changes. Prevertebral soft tissues within normal limits. CT/Spine Cervical without Contras IMPRESSION: Senescent changes. No evidence of acute cervical spine fracture. Reading Location: [facility] CC: Dr. Richard Loo DO; Dr. Arturo Amaya MD ~ Charging Plug Placer: Signed [facility] 06-16-2024 Radiology Diagnostic study note [facility] Imaging Services [address] [place] [id number] Brain/Head without Contrast MR#: [id number] Acct: [id number] Name: MARCI MARIE Rep #: [id number] : 1940 F 84 From: Nura Ochoa MD PCP: Dr. Arturo Amaya MD Status: REG ER Study:Brain/Head without Contrast Date of Exa m: 06/16/24 Exam# [id number] Ordering Dr: Pau Loo DO EXAM: BRAIN/HEAD WITHOUT CONTRAST CLINICAL HISTORY: TRAUMA HEADACHE COMPARISON: April 2024 TECHNIQUE: Noncontrast head CT performed using standard technique. Sagittal and coronal reconstructions added. FINDINGS: Global volume loss and moderate chronic small-vessel ischemic change. No mass effect. No midline shift. No acute hemorrhage. No acute skull fracture. Mastoid air cells and paranasal sinuses are clear. CT/Brain/Head without Contrast IMPRESSION: Senescent changes. No evidence of acute intracranial abnormality. Reading Location: [facility] CC: Dr. Richard Loo DO; Dr. Arturo Amaya MD ~ Charging Plug Placer: Signed [facility] 06-16-2024 Telephone encounter Note Called and spoke with pt who states she is in [facility] ER at this time. [facility] 06-16-2024 Miscellaneous Notes Called and spoke with pt who states she is in [facility] ER at this time. Bettye Liao Visiting WASTE RECLAIMER with Pts insurance went to [facility] and the Pt told her she fell Thursday night at 1230 am in the bathroom. She said the Pt was complaining of occipital headache now and sharp pain in her L rib. She reports Pt did not lose conscious, her VS are stable, denies blurred or double vision. She states she didn't see any bumps or bruising on the Pt. She reports Pt said she would go to [facility]. I told her [facility] would probably send her to [facility] so she could get stat scans I also asked her if someone was going to be driving the Pt, and she said she thought so. Called and left a voicemail for the Patient to call back and ask for a triage nurse so we could triage fall. Suzanna Pimentel RN documented in this encounter [facility] 06-16-2024 Telephone encounter Note Bettye Liao Visiting WASTE RECLAIMER with Pts insurance went to [facility] and the Pt told her she fell Thursday night at 1230 am in the bathroom. She said the Pt was complaining of occipital headache now and sharp pain in her L rib. She reports Pt did not lose conscious, her VS are stable, denies blurred or double vision. She states she didn't see any bumps or bruising on the Pt. She reports Pt said she would go to [facility]. I told her [facility] would probably send her to R so she could get stat scans I also asked her if someone was going to be driving the Pt, and she said she thought so. Called and left a voicemail for the Patient to call back and ask for a triage nurse so we could triage fall. Suzanna Pimentel, RN [facility] 06-11-2024 Note HNO ID: [id number] Author: ALEXANDRE KHAN RN Service: ? Author Type: Registered Nurse Type: Progress Notes Filed: 06/11/2024 13:23 Note Text: DIABETES CARE AND EDUCATION VISIT Location: [place] Type of visit: In person individual PATIENT'S MAIN CONCERN TODAY: Learn about Freestyle Libre3 Support person present for education today: none Cognitive ability: Alert and oriented Motivation to learn: Interested Learning barriers identified by educator: none Method of instruction: written, verbal, and demonstration DIABETES FINDINGS: Monitoring: Libre3 reviewed and assisted patient with starting sensor Medications: reviewed use of the Lantus insulin pen, pt has sibling who uses pens and feels comfortable after reviewing operation HANDOUTS: Healthy You: Survival Skills and Healthy You: Planning Healthy Meals LEARNING RESPONSE: Monitoring glucose: Demonstrated understanding/competency today or at previous visit POSSIBLE FUTURE TOPICS: 1. DIABETES CARE AND EDUCATION PLAN: Education completed and annual diabetes education follow-up visit recommended Time Spent (Minutes): 30 This visit note will be communicated to the healthcare provider via access to shared medical record. SIGNATURE: Alexandre Khan RN PATIENT NAME: Marci Marie DATE: June 11, 2024 TIME: 12:56 PM [facility] 06-11-2024 History of Present illness Narrative DIABETES CARE AND EDUCATION VISIT Location: [place] Type of visit: In person individual PATIENT'S MAIN CONCERN TODAY: Learn about Freestyle Libre3 Support person present for education today: none Cognitive ability: Alert and oriented Motivation to learn: Interested Learning barriers identified by educator: none Method of instruction: written, verbal, and demonstration DIABETES FINDINGS: Monitoring: Libre3 reviewed and assisted patient with starting sensor Medications: reviewed use of the Lantus insulin pen, pt has sibling who uses pens and feels comfortable after reviewing operation HANDOUTS: Healthy You: Survival Skills and Healthy You: Planning Healthy Meals LEARNING RESPONSE: Monitoring glucose: Demonstrated understanding/competency today or at previous visit POSSIBLE FUTURE TOPICS: 1. DIABETES CARE AND EDUCATION PLAN: Education completed and annual diabetes education follow-up visit recommended Time Spent (Minutes): 30 This visit note will be communicated to the healthcare provider via access to shared medical record. SIGNATURE: Alexandre Khan RN PATIENT NAME: Marci Marie DATE: June 11, 2024 TIME: 12:56 PM documented in this encounter [facility] 06-11-2024 History of Present illness Narrative NEW CONSULT OFFICE PROGRESS NOTE Reason for Consultation: DM Type 2 Referring Physician: SELF My final recommendations will be communicated back to the requesting physician by way of shared Medical record or letter via [place] mail. HISTORY OF PRESENT ILLNESS; Marci Marie is a 84 year old FEMALE is presenting as a new patient to me regarding DM Type 2. She was initially diagnosed with diabetes in 1999 Patient extremely hard of hearing Is not checking her blood sugar Pt had sensors for almost one year and was not instructed by prescriber office Pt sts noone taught her to use CGM - when she asked PCP office, sts was told by PCP office - 'you go see ENDO they will set you up' Has not seen DM ed Kelvin is taking her oral meds but is NOT using her insulin They never gave me insulin DM Education No Knows how to carb count No DIETARY HISTORY: Breakfast: cereal and banana w ham and egg Lunch salad with turkey and lite [place] dressing Dinner soup OR sandwich OR salad Snacks grapes OR pretzels OR chips (I'm a chip aholic) Drinks water and sugar free drinks - no longer drinking pop Exercise: walks CURRENT DM MEDS AMARYL 2 mg 1 tab daily JANUVIA 100 mg 1 tab daily LANTUS 10 units METFORMIN 500 mg 2 BG, 1 lunch 2 dinner SMBG Type of Monitor: Other Frequency of Monitoring: HAS NOT BEEN CHECKING times a day BG Values: Breakfast: Lunch: Dinner: Bed-time: Values over past week: Highest ; Lowest Hypoglycemia: no Diet: as per above Exercise: as per above DM REVIEW OF SYSTEMS Last Eye Exam : 03/2024 Last Podiatry Exam: 04/2024 Cardiorespiratory: negative, denies chest pain, pressure Claudication: no Dyslipidemia: Yes, controlled on medication High Blood Pressure: Yes, controlled on medication CURRENT LABS Latest Ref Rng 04/15/2024 Hemoglobin A1C 4.3 - 5.6 % 13.7 (H) Estimated Average Glucose mg/dL 346 Legend: (H) High Recent Labs 01/08/20 0917 04/13/20 1136 03/21/21 0942 09/07/21 0959 09/07/21 1005 10/27/21 1023 11/22/21 1048 12/26/21 1358 04/11/22 1014 09/26/22 1313 10/10/22 1002 08/11/23 1028 04/15/24 1310 05/14/24 1314 ALT -- < > -- < > -- -- 23 -- 24 19 -- 24 59* 18 AST -- < > -- < > -- -- 24 -- 22 22 -- 21 49* 16 UCRR 74.8 -- 14.2* -- 75.5 -- -- -- 31.2 -- -- -- -- -- UALBR 18.6 -- 20.0 -- <12.0 -- -- -- <12.0 -- -- -- -- -- UALBCR 25 -- 141* -- <16 -- -- -- -- -- -- -- -- -- TSH -- -- -- -- -- -- 2.570 -- 2.150 -- -- -- 1.740 -- TPROT -- < > -- < > -- -- 7.0 -- 6.9 6.8 -- 6.7 7.2 7.0 ALB -- < > -- < > -- -- 4.6 -- 4.4 4.3 -- 4.1 4.3 4.2 CA -- < > -- < > -- < > 10.6* < > 10.2 10.1 -- 10.0 10.6* 10.1 TBILI -- < > -- < > -- -- 0.4 -- 0.4 0.6 -- 0.6 0.7 0.5 ALKPHOS -- < > -- < > -- -- 135* -- 151* 113 -- 308* 309* 193* 193* GLUC -- < > -- < > -- < > 118* -- 171* 153* -- 541* 492* -- BUN -- < > -- < > -- < > 25* -- 23* 19 -- 19 26* -- CREAT -- < > -- < > -- < > 0.99* -- 0.76 0.81 -- 0.61 0.65 -- NA -- < > -- < > -- < > 137 -- 138 138 -- 136 133* -- K -- < > -- < > -- < > 4.4 -- 4.4 4.2 -- 4.6 4.4 -- CHLOR -- < > -- < > -- < > 100 -- 103 101 -- 97 96* -- CO2 -- < > -- < > -- < > 27 -- 27 25 -- 25 23 -- ANION -- < > -- < > -- < > 10 -- 8* 12 -- 14 14 -- EGFROTH -- < > -- < > -- < > 58* -- 79 73 -- 90 88 -- HBA1C -- < > -- < > -- -- -- -- 6.9* -- 8.8* 12.9* 13.7* -- B12 -- -- -- -- -- -- 536 -- -- -- -- -- -- -- < > = values in this interval not displayed. Recent Labs 07/18/14 0735 05/17/15 0850 07/18/16 0947 08/27/18 1613 09/07/21 0959 11/22/21 1048 04/11/22 1014 10/10/22 1002 08/11/23 1028 04/15/24 1310 TG 91 112 133 < > 147 -- 74 -- -- 117 CHOL 180 182 183 < > 184 -- 186 -- -- 220* HDL 59 65 58 < > 64 -- 79 -- -- 91 VLDL 18 22 27 < > 29 -- 15 -- -- 23 LDL 103 95 98 < > 91 -- 92 -- -- 106* FASTTIME FASTING 12 12 -- -- -- -- -- -- -- TCHDL 3.05 2.80 3.16 < > 2.88 -- 2.35 -- -- 2.42 LDLHDL 1.75 1.46 1.69 < > 1.42 -- 1.16 -- -- 1.16 NONHDL 121 117 125 < > 120 -- 107 -- -- 129 HBA1C 7.8* 6.6* 7.0* < > 7.8* -- 6.9* 8.8* 12.9* 13.7* HBA0 177 143 154 < > 177 -- 151 -- 324 346 B12 -- -- -- -- -- 536 -- -- -- -- < > = values in this interval not displayed. PAST MEDICAL HISTORY Diagnosis Date Acquired deformity of left toe 03/21/2021 second and third digits Adjustment disorder with depressed mood 01/19/2020 Aortic stenosis, mild 12/02/[address] 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 prior episode ([facility]) 01/19/2020 Diabetic eye exam ([facility]) 08/21/2016 Last Done: 08/09/2017 No Retinopathy Diaphragmatic hernia without mention of obstruction or gangrene Diastolic congestive heart failure (HCC) 07/03/2022 Elevated alkaline phosphatase level 08/28/2018 Elevated serum GGT level 07/03/2017 Essential hypertension 07/13/2014 Foot callus 03/21/2021 SAMEER (generalized anxiety disorder) 09/05/2018 Gastroesophageal reflux disease with esophagitis 04/23/2015 Herpes zoster mild occasional neuralgia in left cervical area. Hiatal hernia History of colon polyps Mixed hyperlipidemia Morbid obesity with BMI of 40.0-44.9, adult ([facility]) 06/19/2016 Multiple thyroid nodules 03/24/2021 03/2021: Needs yearly f/u for 5 yrs OAB (overactive bladder) 10/10/2022 Osteopenia 04/24/2011; Start vitamin d 1,000/day and RE-CHECK 2013 Personal history of other malignant neoplasm of skin 02/26/2009 Schatzki's ring Sebaceous cyst 07/03/2017 lower anterior neck Skin cancer, basal cell 04/23/2015 nose Stricture and stenosis of esophagus egd/dilatation by Dr. Hollins; Tinnitus of both ears 12/26/2021 Due to hearing loss. 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) ([facility]) 07/07/2013 Uncontrolled type 2 diabetes mellitus with hyperglycemia ([facility]) 01/02/2020 Venous (peripheral) insufficiency 12/21/2015 Vitamin D deficiency 11/26/2015 PAST SURGICAL HISTORY Procedure Laterality Date 2D ECHO (EXEP) 12/02/2015 EF=59% mild LVH, mild MR,TR and 2D ECHO (EXEP) 02/13/2020 EF=65%, mild dilated LA, 1+ MR and CHOLECYSTECTOMY Cholecystectomy COLONOSCOPY 11/04/2018 Sessile serrated polyp, Tubullovillous adenoma. Dr. Filemon Galvan. COLONOSCOPY SCRN NOT HIGH RISK 06/10/2003 upper and lower EGD 08/17/2009 Dr. Theo Hollins EGD DILATION 11/04/2018 Schatzi's Ring, mild reactive gastropathy. Dr. Filemon Galvan. ESOPHAGOGASTRODUODENOSCOPY TRANSORAL DIAGNOSTIC 06/2003 EGD EXERCISE ECG STRESS TEST 03/02/2020 negative NOSE SURGERY HX 2006 Nasal fracture repair REVISE MEDIAN N/CARPAL TUNNEL SURG Right 09/14/2022 TONSILLECTOMY AND ADENOIDECTOMY HX WRIST SURGERY HX 12/1988 Broken Left wrist surgery at [facility] - Dr. Delgado FAMILY HISTORY Problem Relation Age of Onset Allergies Mother Heart Mother Asthma Mother Alzheimer's Disease Father Heart disease Father Hypertension Father Hypertension Maternal Grandmother DVT Maternal Grandmother Stroke Paternal Grandmother Stroke Paternal Grandfather Hypertension Brother Diabetes Brother Social History Tobacco Use Smoking status: Never Smokeless tobacco: Never Tobacco comments: 2nd hand Vaping Use Vaping status: Never Used Substance Use Topics Alcohol use: No Drug use: No Current Outpatient Medications Medication Sig carvedilol (COREG) 6.25 mg tablet Take 1 tablet by mouth two times a day with meals. insulin glargine (LANTUS SOLOSTAR U-100 INSULIN) 100 unit/mL (3 mL) Inject 10 Units subcutaneously daily at bedtime. Insulin [place], Disposable, (PEN NEEDLE) 32 gauge x 5/32 Inject 1 Each subcutaneously every 24 hours. Give with each insulin administration. SITagliptin phosphate (JANUVIA) 100 mg tablet Take 1 tablet by mouth once daily. lisinopril (ZESTRIL) 40 mg tablet Take 1 tablet by mouth two times a day. hydroCHLOROthiazide 25 mg tablet Take 1 tablet by mouth once daily. furosemide (LASIX) 40 mg tablet Take 1 tablet by mouth as needed. glimepiride (AMARYL) 2 mg tablet Take 1 tablet by mouth daily with dinner. amLODIPine (NORVASC) 5 mg tablet Take 1 tablet by mouth once daily. metFORMIN (GLUCOPHAGE) 500 mg tablet Take by mouth. take 2 tabs w/breakfast;1 tab with lunch and TWO tabs w/ dinner nitroglycerin sublingual (NITROQUICK) 0.4 mg SL tablet Dissolve 1 tablet under the tongue as needed. FOR CHEST PAIN. IF NO RELIEF CALL 911 Blood-Glucose Meter,Continuous (FREESTYLE KIRK 3 READER) [facility] Check blood sugars 3-4 times a day Dx: E11.65 no insulin Blood-Glucose Sensor (FREESTYLE KIRK 3 SENSOR) em Apply a new sensor once every 2 weeks. Check blood sugars 3-4 times a day Dx: E11.65 no insulin Cholecalciferol, Vitamin D3, 2,000 unit cap Take 3 capsules by mouth once daily. No current facility-administered medications for this visit. ALLERGIES Allergen Reactions Codeine Rash Penicillins Rash Pioglitazone Other: See Comments Increased leg edema and CHF symptoms Prednisone Rash Acetaminophen Other: See Comments Niacin Unknown Celebrex [Celecoxib] Unknown Niacin Rash Sulfa (Sulfonamide * Rash REVIEW OF SYSTEMS - POSITIVES IN BOLD GENERAL:No weight loss, malaise or fevers HEENT:Negative for frequent or significant headaches, No changes in hearing or vision, no nose bleeds or other nasal problems NECK:Negative for lumps, goiter, pain and significant neck swelling RESPIRATORY: Negative for cough, hemoptysis, wheezing, COPD, dyspnea or shortness of breath CARDIOVASCULAR: Negative for chest pain, leg swelling, hypertension, CHF or palpitations PHYSICAL EXAMINATION: BP 140/84 (BP Site: Right Arm, BP Position: Sitting, BP Cuff Size: Large Adult) Pulse 81 Temp 36.4 C (97.6 F) (Temporal Artery) Wt 103.1 kg (227 lb 6.4 oz) LMP (LMP Unknown) SpO2 95% BMI 38.59 kg/m General appearance: Well appearing, alert, in no acute distress, well-hydrated, well nourished. and Morbidly obese Skin: Skin color, texture, turgor normal, no suspicious rashes or lesions Head: Normocephalic, no masses, lesions, tenderness or abnormalities Eyes: APPLE Neck: thyroid symmetric to inspection Acanthosis: none noted Extremities: Edema: no edema noted Neuro: Negative., Oriented X 3 ASSESSMENT/PLAN (E11.65) Poorly controlled type 2 diabetes mellitus (HCC) (primary encounter diagnosis) Comment: NO BLOOD SUGARS available for review Will not make any changes to current DM meds/injectables as no data to make safe changes PATIENT NEVER STARTED HER INSULIN, sts was not rx'd for her Will have patient start 10 units once daily No changes to current oral medications at this time New meter sent for patient to patient pharmacy CONSULT TO DM ED - for CGM training and INSULIN INJECTION training Patient to f/u in 3 mos with labs Recommended diet: Low carbohydrate and Low saturated fat, low simple sugar, high fiber diet Exercise minimally 150 minutes per week, increase as tolerated. Adequate hydration - 1/2 body wgt in oz of water daily, unless fluid restriction applies. I instructed the patient to monitor blood sugars 4 times per day If blood sugars are persistently high or low, to call our office. Patient to continue to follow up with her PCP and with other consultants regarding her other medical problems. Plan: COMPREHENSIVE METABOLIC PANEL, LIPID PANEL, NONFASTING, ALBUMIN/CREATININE RATIO, URINE, HEMOGLOBIN A1C Christa Sheridan CNP documented in this encounter [facility] 06-11-2024 Note HNO ID: [id number] Author: CHRISTA SHERIDAN APRN.RITA Service: ? Author Type: Nurse Practitioner Type: Progress Notes Filed: 06/11/2024 11:25 Note Text: NEW CONSULT OFFICE PROGRESS NOTE Reason for Consultation: DM Type 2 Referring Physician: SELF My final recommendations will be communicated back to the requesting physician by way of shared Medical record or letter via [place] mail. HISTORY OF PRESENT ILLNESS; Marci Marie is a 84 year old FEMALE is presenting as a new patient to me regarding DM Type 2. She was initially diagnosed with diabetes in 1999 Patient extremely hard of hearing Is not checking her blood sugar Pt had sensors for almost one year and was not instructed by prescriber office Pt sts noone taught her to use CGM - when she asked PCP office, sts was told by PCP office - 'you go see ENDO they will set you up' Has not seen DM ed Sts is taking her oral meds but is NOT using her insulin They never gave me insulin DM Education No Knows how to carb count No DIETARY HISTORY: Breakfast: cereal and banana w ham and egg Lunch salad with turkey and lite [place] dressing Dinner soup OR sandwich OR salad Snacks grapes OR pretzels OR chips (I'm a chip aholic) Drinks water and sugar free drinks - no longer drinking pop Exercise: walks CURRENT DM MEDS AMARYL 2 mg 1 tab daily JANUVIA 100 mg 1 tab daily LANTUS 10 units METFORMIN 500 mg 2 BG, 1 lunch 2 dinner SMBG Type of Monitor: Other Frequency of Monitoring: HAS NOT BEEN CHECKING times a day BG Values: Breakfast: Lunch: Dinner: Bed-time: Values over past week: Highest ; Lowest Hypoglycemia: no Diet: as per above Exercise: as per above DM REVIEW OF SYSTEMS Last Eye Exam : 03/2024 Last Podiatry Exam: 04/2024 Cardiorespiratory: negative, denies chest pain, pressure Claudication: no Dyslipidemia: Yes, controlled on medication High Blood Pressure: Yes, controlled on medication CURRENT LABS Latest Ref Rng 04/15/2024 Hemoglobin A1C 4.3 - 5.6 % 13.7 (H) Estimated Average Glucose mg/dL 346 Legend: (H) High Recent Labs 01/08/20 0917 04/13/20 1136 03/21/21 0942 09/07/21 0959 09/07/21 1005 10/27/21 1023 11/22/21 1048 12/26/21 1358 04/11/22 1014 09/26/22 1313 10/10/22 1002 08/11/23 1028 04/15/24 1310 05/14/24 1314 ALT -- < > -- < > -- -- -- 24 19 -- 24 59* 18 AST -- < > -- < > -- -- 24 -- 22 22 -- 21 49* 16 UCRR 74.8 -- 14.2* -- 75.5 -- -- -- 31.2 -- -- -- -- -- UALBR 18.6 -- 20.0 -- <12.0 -- -- -- <12.0 -- -- -- -- -- UALBCR 25 -- 141* -- <16 -- -- -- -- -- -- -- -- -- TSH -- -- -- -- -- -- 2.570 -- 2.150 -- -- -- 1.740 -- TPROT -- < > -- < > -- -- 7.0 -- 6.9 6.8 -- 6.7 7.2 7.0 ALB -- < > -- < > -- -- 4.6 -- 4.4 4.3 -- 4.1 4.3 4.2 CA -- < > -- < > -- < > 10.6* < > 10.2 10.1 -- 10.0 10.6* 10.1 TBILI -- < > -- < > -- -- 0.4 -- 0.4 0.6 -- 0.6 0.7 0.5 ALKPHOS -- < > -- < > -- -- 135* -- 151* 113 -- 308* 309* 193* 193* GLUC -- < > -- < > -- < > 118* -- 171* 153* -- 541* 492* -- BUN -- < > -- < > -- < > 25* -- 23* 19 -- 19 26* -- CREAT -- < > -- < > -- < > 0.99* -- 0.76 0.81 -- 0.61 0.65 -- NA -- < > -- < > -- < > 137 -- 138 138 -- 136 133* -- K -- < > -- < > -- < > 4.4 -- 4.4 4.2 -- 4.6 4.4 -- CHLOR -- < > -- < > -- < > 100 -- 103 101 -- 97 96* -- CO2 -- < > -- < > -- < > 27 -- 27 25 -- 25 23 -- ANION -- < > -- < > -- < > 10 -- 8* 12 -- 14 14 -- EGFROTH -- < > -- < > -- < > 58* -- 79 73 -- 90 88 -- HBA1C -- < > -- < > -- -- -- -- 6.9* -- 8.8* 12.9* 13.7* -- B12 -- -- -- -- -- -- 536 -- -- -- -- -- -- -- < > = values in this interval not displayed. Recent Labs 07/18/14 0735 05/17/15 0850 07/18/16 0947 08/27/18 1613 09/07/21 0959 11/22/21 1048 04/11/22 1014 10/10/22 1002 08/11/23 1028 04/15/24 1310 TG 91 112 133 < > 147 -- 74 -- -- 117 CHOL 180 182 183 < > 184 -- 186 -- -- 220* HDL 59 65 58 < > 64 -- 79 -- -- 91 VLDL 18 22 27 < > 29 -- 15 -- -- 23 LDL 103 95 98 < > 91 -- 92 -- -- 106* FASTTIME FASTING 12 -- -- -- -- -- -- -- TCHDL 3.05 2.80 3.16 < > 2.88 -- 2.35 -- -- 2.42 LDLHDL 1.75 1.46 1.69 < > 1.42 -- 1.16 -- -- 1.16 NONHDL 121 117 125 < > 120 -- 107 -- -- 129 HBA1C 7.8* 6.6* 7.0* < > 7.8* -- 6.9* 8.8* 12.9* 13.7* HBA0 177 143 154 < > 177 -- 151 -- 324 346 B12 -- -- -- -- -- 536 -- -- -- -- < > = values in this interval not displayed. PAST MEDICAL HISTORY Diagnosis Date Acquired deformity of left toe 03/21/2021 second and third digits Adjustment disorder with depressed mood 01/19/2020 Aortic stenosis, mild 12/02/[address] 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 Corns and callus 09/18/2016 Current severe episode of major depressive disorder with psychotic features without prior episode (HCC) (more content not included)... [facility] 06-02-2024 Instructions Malia Simons - 06/02/2024 11:25 AM EST Diabetes Foot Care Instructions When you have diabetes, proper foot care is very important. Poor foot care may lead to amputation of a foot or leg. As a person with diabetes, you are more vulnerable to foot problems, because diabetes can damage your nerves and reduce blood flow to your feet. Here are some diabetes foot care tips to follow: Wash and Dry Your Feet Daily Use mild soaps Use warm water Pat your skin dry; do not rub. Thoroughly dry your feet. After washing, use lotion on your feet to prevent cracking. Do not put lotion between your toes. Examine Your Feet Each Day Check the tops and bottoms of your feet. Have someone else look at your feet if you cannot see them. Check for dry, cracked skin. Look for blisters, cuts, scratches, or other sores. Check for redness, increased warmth, or tenderness when touching any area of your feet. Check for ingrown toenails, corns, and calluses. If you get a blister or sore from your shoes, do not pop it. Apply a bandage and wear a different pair of shoes. Take Care of Your Toenails Cut toenails after bathing, when they are soft. Cut toenails straight across and smooth with a nail file. Avoid cutting into the corners of toes. Do not cut cuticles. If you have neuropathy (or decreased sensation in your feet) a director of brand marketing should always cut your toenails. Be Careful When Exercising Walk and exercise in comfortable shoes. Do not exercise when you have open sores on your feet. Protect Your Feet With Shoes and Socks Never go barefoot. Always protect your feet by wearing shoes or hard-soled slippers or footwear. Avoid shoes with high heels and pointed toes. Avoid shoes that expose your toes or heels (such as open-toed shoes or sandals). These types of shoes increase your risk for injury and potential infections. Try on new footwear with the type of socks you usually wear. Do not wear new shoes for more than an hour at a time. Change your socks daily. Look and feel inside your shoes before putting them on to make sure there are no foreign objects or rough areas. Avoid tight socks. Wear natural-fiber socks (cotton, wool, or a cotton-wool blend). Wear special shoes if your health care provider recommends them. Wear shoes/boots that will protect your feet from various weather conditions (cold, moisture, etc.). Make sure your shoes fit properly. If you have neuropathy (nerve damage), you may not notice that your shoes are too tight. Perform the footwear test described below. Footwear Test Use this simple test to see if your shoes fit correctly: Stand on a piece of paper. (Make sure you are standing and not sitting, because your foot changes shape when you stand.) Trace the outline of your foot. Trace the outline of your shoe. Compare the tracings: Is the shoe too narrow? Is your foot crammed into the shoe? The shoe should be at least 1/2 inch longer than your longest toe and as wide as your foot. Proper Shoe Choices The following types of shoes are best for people with diabetes Closed toes and heels Leather uppers without a seam inside At least 1/2 inch extra space at the end of your longest toe Inside of shoe should be soft with no rough areas Outer sole should be made of stiff material Shoes should be at least as wide as your feet Tips for Foot Care in Diabetes Don't wait to treat a minor foot problem if you have diabetes. Follow your health care provider's guidelines and first aid guidelines. Report foot injuries and infections to your health care provider immediately. Check water temperature with your elbow, not your foot. Do not use a heating pad on your feet. Do not cross your legs. Do not self-treat your corns, calluses, or other foot problems. Go to your health care provider or director of brand marketing to treat these conditions. Powerstep Original Full length. Can purchase at [facility] [employer] and boots,shoes and more here in [place], [employer] in [place] or [place]. Also can find in [place] in [facility]. Powersteps can also be purchased online, starting around $45.00 If you have a metatarsal or dancer pad for your feet apply the pad directly to the insole so you can interchange between your shoes. Find a shoe with a removable insole and take this out and replace with your powerstep insole. Always bring powersteps with you when shopping for shoes so that you can make sure that everything fits well together documented in this encounter [facility] 06-02-2024 Note HNO ID: [id number] Author: MALIA SIMONS, ? Service: ? Author Type: Physician Type: Progress Notes Filed: 06/03/2024 05:54 Note Text: Consultation requested by Dr. Bettencourt for an opinion regarding ingrowing toenail. My final recommendations will be communicated back to the requesting physician by way of shared Medical record or letter to requesting physician via [place] mail. Initial Office Visit Subjective: This 84 year old female presents to clinic for diabetic foot check. Patient has the following complaints: ingrowing toenail of b/l feet. Patient presents to clinic for evaluation of b/l feet. Complains of ingrowing toenail of b/l hallux. This causes pain and even led to an infection back in April. Was placed on antibiotic and the infection resolved but she still has pain. She has neglected her toes so her nails are very thick, incurvated and painful. Patient admits to being diabetic. Patient -B/T/N in feet at this time. Patient -pain in legs when walking. No other pedal complaints at this time. No change in medications or medical history since last visit. PAIN EVALUATION No data found in the last 1 encounters. Hemoglobin A1C (%) Date Value 04/15/2024 13.7 08/11/2023 12.9 04/11/2022 6.9 09/07/2021 7.8 03/21/2021 7.8 08/23/2020 6.8 04/13/2020 5.7 01/08/2020 16.3 08/27/2018 13.7 Hemoglobin A1C (POCT) (%) Date Value 10/10/2022 8.8 PCP: Arturo Amaya MD PAST MEDICAL HISTORY Diagnosis Date Acquired deformity of left toe 03/21/2021 second and third digits Adjustment disorder with depressed mood 01/19/2020 Aortic stenosis, mild 12/02/[address] 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 Hiatal hernia History of colon polyps Mixed hyperlipidemia Morbid obesity with BMI of 40.0-44.9, adult ([facility]) 06/19/2016 Multiple thyroid nodules 03/24/2021 US 03/2021: Needs yearly f/u for 5 yrs OAB (overactive bladder) 10/10/2022 Osteopenia 04/24/2011; Start vitamin d 1,000/day and RE-CHECK 2013 Personal history of other malignant neoplasm of skin 02/26/2009 Schatzki's ring Sebaceous cyst 07/03/2017 lower anterior neck Skin cancer, basal cell 04/23/2015 nose Stricture and stenosis of esophagus egd/dilatation by Dr. Hollins; Tinnitus of both ears 12/26/2021 Due to hearing loss. 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 In AM with cup of water on empty stomach. Nothing else by mouth and stay upright for 30 min. carvedilol (COREG) 6.25 mg tablet Take 1 tablet by mouth two times a day with meals. insulin glargine (LANTUS SOLOSTAR U-100 INSULIN) 100 unit/mL (3 mL) Inject 10 Units subcutaneously daily at bedtime. Insulin [place], Disposable, (PEN NEEDLE) 32 gauge x 5/32 Inject 1 Each subcutaneously every 24 hours. Give with each insulin administration. SITagliptin phosphate (JANUVIA) 100 mg tablet Take 1 tablet by mouth once daily. lisinopril (ZESTRIL) 40 mg tablet Take 1 tablet by mouth two times a day. hydroCHLOROthiazide 25 mg tablet Take 1 tablet by mouth once daily. furosemide (LASIX) 40 mg tablet Take 1 tablet by mouth as needed. glimepiride (AMARYL) 2 mg tablet Take 1 tablet by mouth daily with dinner. amLODIPine (NORVASC) 5 mg tablet Take 1 tablet by mouth once daily. metFORMIN (GLUCOPHAGE) 500 mg tablet Take by mouth. take 2 tabs w/breakfast;1 tab with lunch and TWO tabs w/ dinner nitroglycerin sublingual (NITROQUICK) 0.4 mg SL tablet Dissolve 1 tablet under the tongue as needed. FOR CHEST PAIN. IF NO RELIEF CALL 911 Blood-Glucose Meter,Continuous (FREESTYLE KIRK 3 READER) [facility] Check blood sugars 3-4 times a day Dx: E11.65 no insulin Blood-Glucose Sensor (FREESTYLE KIRK 3 SENSOR) em Apply a new sensor once every 2 weeks. Check blood sugars 3-4 times a day Dx: E11.65 no insulin Priscila (more content not included)... [facility] 06-02-2024 History of Present illness Narrative Consultation requested by Dr. Bettencourt for an opinion regarding ingrowing toenail. My final recommendations will be communicated back to the requesting physician by way of shared Medical record or letter to requesting physician via [place] mail. Initial Office Visit Subjective: This 84 year old female presents to clinic for diabetic foot check. Patient has the following complaints: ingrowing toenail of b/l feet. Patient presents to clinic for evaluation of b/l feet. Complains of ingrowing toenail of b/l hallux. This causes pain and even led to an infection back in April. Was placed on antibiotic and the infection resolved but she still has pain. She has neglected her toes so her nails are very thick, incurvated and painful. Patient admits to being diabetic. Patient -B/T/N in feet at this time. Patient -pain in legs when walking. No other pedal complaints at this time. No change in medications or medical history since last visit. PAIN EVALUATION No data found in the last 1 encounters. Hemoglobin A1C (%) Date Value 04/15/2024 13.7 08/11/2023 12.9 04/11/2022 6.9 09/07/2021 7.8 03/21/2021 7.8 08/23/2020 6.8 04/13/2020 5.7 01/08/2020 16.3 08/27/2018 13.7 Hemoglobin A1C (POCT) (%) Date Value 10/10/2022 8.8 PCP: Arturo Amaya MD PAST MEDICAL HISTORY Diagnosis Date Acquired deformity of left toe 03/21/2021 second and third digits Adjustment disorder with depressed mood 01/19/2020 Aortic stenosis, mild 12/02/[address] 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 Hiatal hernia History of colon polyps Mixed hyperlipidemia Morbid obesity with BMI of 40.0-44.9, adult ([facility]) 06/19/2016 Multiple thyroid nodules 03/24/2021 03/2021: Needs yearly f/u for 5 yrs OAB (overactive bladder) 10/10/2022 Osteopenia 04/24/2011; Start vitamin d 1,000/day and RE-CHECK 2013 Personal history of other malignant neoplasm of skin 02/26/2009 Schatzki's ring Sebaceous cyst 07/03/2017 lower anterior neck Skin cancer, basal cell 04/23/2015 nose Stricture and stenosis of esophagus egd/dilatation by Dr. Hollins; Tinnitus of both ears 12/26/2021 Due to hearing loss. Type 2 diabetes mellitus with proteinuria ([facility]) ([facility]) 07/07/2013 Uncontrolled type 2 diabetes mellitus with hyperglycemia ([facility]) 01/02/2020 Venous (peripheral) insufficiency 12/21/2015 Vitamin D deficiency 11/26/2015 Current Outpatient Medications Medication Sig alendronate (FOSAMAX) 70 mg tablet Take 1 tablet by mouth one time a week. In AM with cup of water on empty stomach. Nothing else by mouth and stay upright for 30 min. carvedilol (COREG) 6.25 mg tablet Take 1 tablet by mouth two times a day with meals. insulin glargine (LANTUS SOLOSTAR U-100 INSULIN) 100 unit/mL (3 mL) Inject 10 Units subcutaneously daily at bedtime. Insulin [place], Disposable, (PEN NEEDLE) 32 gauge x 5/32 Inject 1 Each subcutaneously every 24 hours. Give with each insulin administration. SITagliptin phosphate (JANUVIA) 100 mg tablet Take 1 tablet by mouth once daily. lisinopril (ZESTRIL) 40 mg tablet Take 1 tablet by mouth two times a day. hydroCHLOROthiazide 25 mg tablet Take 1 tablet by mouth once daily. furosemide (LASIX) 40 mg tablet Take 1 tablet by mouth as needed. glimepiride (AMARYL) 2 mg tablet Take 1 tablet by mouth daily with dinner. amLODIPine (NORVASC) 5 mg tablet Take 1 tablet by mouth once daily. metFORMIN (GLUCOPHAGE) 500 mg tablet Take by mouth. take 2 tabs w/breakfast;1 tab with lunch and TWO tabs w/ dinner nitroglycerin sublingual (NITROQUICK) 0.4 mg SL tablet Dissolve 1 tablet under the tongue as needed. FOR CHEST PAIN. IF NO RELIEF CALL 911 Blood-Glucose Meter,Continuous (FREESTYLE KIRK 3 READER) misc Check blood sugars 3-4 times a day Dx: E11.65 no insulin Blood-Glucose Sensor (FREESTYLE KIRK 3 SENSOR) em Apply a new sensor once every 2 weeks. Check blood sugars 3-4 times a day Dx: E11.65 no insulin Cholecalciferol, Vitamin D3, 2,000 unit cap Take 3 capsules by mouth once daily. No current facility-administered medications for this visit. ALLERGIES Allergen Reactions Codeine Rash Penicillins Rash Pioglitazone Other: See Comments Increased leg edema and CHF symptoms Prednisone Rash Acetaminophen Other: See Comments Niacin Unknown Celebrex [Celecoxib] Unknown Niacin Rash Sulfa (Sulfonamide * Rash PAST SURGICAL HISTORY Procedure Laterality Date 2D ECHO (EXEP) 12/02/2015 EF=59% mild LVH, mild MR,TR and 2D ECHO (EXEP) 02/13/2020 EF=65%, mild dilated LA, 1+ MR and CHOLECYSTECTOMY Cholecystectomy COLONOSCOPY 11/04/2018 Sessile serrated polyp, Tubullovillous adenoma. Dr. Filemon Galvan. COLONOSCOPY SCRN NOT HIGH RISK 06/10/2003 upper and lower EGD 08/17/2009 Dr. Theo Hollins EGD DILATION 11/04/2018 Schatzi's Ring, mild reactive gastropathy. Dr. Filemon Galvan. ESOPHAGOGASTRODUODENOSCOPY TRANSORAL DIAGNOSTIC 06/2003 EGD EXERCISE ECG STRESS TEST 03/02/2020 negative NOSE SURGERY HX 2006 Nasal fracture repair REVISE MEDIAN N/CARPAL TUNNEL SURG Right 09/14/2022 TONSILLECTOMY AND ADENOIDECTOMY HX WRIST SURGERY HX 12/1988 Broken Left wrist surgery at [facility] - Dr. Delgado FAMILY HISTORY Problem Relation Age of Onset Allergies Mother Heart Mother Asthma Mother Alzheimer's Disease Father Heart disease Father Hypertension Father Hypertension Maternal Grandmother DVT Maternal Grandmother Stroke Paternal Grandmother Stroke Paternal Grandfather Hypertension Brother Diabetes Brother Social History Tobacco Use Smoking status: Never Smokeless tobacco: Never Tobacco comments: 2nd hand Vaping Use Vaping status: Never Used Substance Use Topics Alcohol use: No Drug use: No REVIEW OF SYSTEMS GENERAL: Negative for Malaise, significant weight loss, fever RESPIRATORY: Negative for cough, wheezing and shortness of breath CARDIOVASCULAR: Negative for chest pain, leg swelling and palpitations GI: Negative for abdominal discomfort, blood in stools or black stools and change in bowel habits : Negative for dysuria, frequency and incontinence MUSCULOSKELETAL: Negative for joint pain or swelling, back pain, and muscle pain. SKIN: Negative for lesions, rash, and itching. HEMATOLOGY/LYMPHOLOGY Negative for prolonged bleeding, bruising easily, and swollen nodes. ENDOCRINE: Negative for cold or heat intolerance, polyuria, polydipsia and goiter. NEURO: negative The remainder of the review of systems is noncontributory. Objective: Patient presents to clinic ambulating in [facility] Constitutional: Pt is a well developed 84 year old female who is alert, oriented, cooperative and in no apparent distress. Eyes: Following during examination. No redness or drainage. Respiratory: RR normal and nonlabored. Even breathing. No evidence of distress. Psychology: Patient is engaged during conversation. Normal affect and mood. Does not appear depressed or anxious. Vasc: DP and PT pulses are faintly palpable bilateral. CFT is less than 5 seconds bilateral. Skin temperature is warm to cool proximal to distal bilateral. There is mild edema or varicosities noted. Hair growth decreased. Neuro: Protective sensation is decreased to the foot and toes when tested with the 5.07 SWM bilateral. Vibratory sensation is absent at the hallux bilateral. +Significant neurological defecits. Derm: Inspection and palpation performed. Nails 1-5 b/l are painful, dystrophic, incurvated, discolored-yellow, thick, crumbly, dystrophic and with subungal debris. Skin is of thin, dry, ruborous. Hyperkeratosis noted to b/l forefoot. NO ulcerations, scars, verruca or other lesions noted. Ortho: Ankle joint DF is decreased with the knee extended and decreased with knee flexed. No pain or crepitus noted. STJ, MTJ ROM are full and free of pain or crepitus. Muscle strength is 5/5 for dorsiflexors, plantarflexors, inverters, everters. Lesser toe contractures are present to b/l feet. Assessment: (B35.1) Onychomycosis (primary encounter diagnosis) (E11.65) Uncontrolled type 2 diabetes mellitus with hyperglycemia (HCC) (L60.0) Ingrown toenail (L60.0) Onychocryptosis (L84) Callus (E11.42) Diabetic polyneuropathy associated with type 2 diabetes mellitus (HCC) (M20.41, M20.42) Hammer toes of both feet (R09.89) Diminished pulses in lower extremity Plan: 1. Patient was seen and evaluated. 2. Patient was instructed on the continued importance of diabetic foot care along with proper diet and keeping their blood sugar under control to prevent complications. I stressed the importance of avoiding barefoot walking, wearing good shoes, inspection of feet daily Instructions given both oral and written. 3. Patient has severe dystrophic/incurvated toenails that have been neglected for quite some time. I debrided these nails today 1-5 b/l. We discussed options for the nails not limited to topical medication which carries low risk for improvement, oral medication but need to monitor liver enzymes vs laser therapy vs removal. If she were to elect for removal, would need to have improvement in her A1c and would also check pvr prior. Patient is interested in possible removal but would like to get pvr. 4. Callus reduced with dremmel. 5. F/u in 3 months Malia Simons DPM Patient presents with: Left Foot - New, Diabetic Foot Care Right Foot - New, Diabetic Foot Care, Ingrown Toenail Patient presents for diabetic foot/nail care. States that she had an infected ingrown back in April and was placed on antibiotics. 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 Has history of intermittent neuropathy pain. Toenails are thick and long. Possible wart vs callus to bottom of left foot. ZEUS 02/01/2017 documented in this encounter [facility] 06-02-2024 Note HNO ID: [id number] Author: SUZANNA BABCOCK RN Service: ? Author Type: Registered Nurse Type: Progress Notes Filed: 06/03/2024 05:54 Note Text: Patient presents with: Left Foot - New, Diabetic Foot Care Right Foot - New, Diabetic Foot Care, Ingrown Toenail Patient presents for diabetic foot/nail care. States that she had an infected ingrown back in April and was placed on antibiotics. 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 Has history of intermittent neuropathy pain. Toenails are thick and long. Possible wart vs callus to bottom of left foot. ZEUS 02/01/2017 [facility] 05-30-2024 Telephone encounter Note PATIENT NOTIFIED OF INFORMATION patient is willing to start the medication and would like it sent to yolanda villar [facility] 05-30-2024 Telephone encounter Note PATIENT NOTIFIED OF INFORMATION [facility] 05-30-2024 Miscellaneous Notes PATIENT NOTIFIED OF INFORMATION Left additional message for pt to contact office. Please see both result encounters. Poonam Roman LPN Left message for pt to contact office. Please see both result messages. Poonam Roman LPN Thyroid US overall stable/okay. Thanks. Sharona Bettencourt PA-C documented in this encounter [facility] 05-30-2024 Miscellaneous Notes PATIENT NOTIFIED OF INFORMATION patient is willing to start the medication and would like it sent to yolanda villar Left message for pt to contact office. Also left message with Liyah who is listed to receive information. Also sent letter to pt to contact office. Please see BOTH separate result encounters. Poonam Roman LPN Left additional message for pt to contact office. Please see both result encounters. Poonam Roman LPN Left message for pt to contact office. Please see both result messages. Poonam Roman LPN Bone density shows osteoporosis, which has worsened since last check. Is she willing to start treatment? Fosamax once a week on empty stomach. Sharona Bettencourt PA-C documented in this encounter [facility] 05-30-2024 Telephone encounter Note Left message for pt to contact office. Also left message with Liyah who is listed to receive information. Also sent letter to pt to contact office. Please see BOTH separate result encounters. Poonam Roman LPN [facility] 05-27-2024 Telephone encounter Note Left additional message for pt to contact office. Please see both result encounters. Poonam Roman LPN [facility] 05-27-2024 Telephone encounter Note Left additional message for pt to contact office. Please see both result encounters. Poonam Roman LPN [facility] 05-26-2024 Telephone encounter Note Left message for pt to contact office. Please see both result messages. Poonam Roman LPN [facility] 05-26-2024 Telephone encounter Note Left message for pt to contact office. Please see both result messages. Poonam Roman LPN [facility] 05-26-2024 Telephone encounter Note Bone density shows osteoporosis, which has worsened since last check. Is she willing to start treatment? Fosamax once a week on empty stomach. Sharona Bettencourt PA-C [facility] 05-26-2024 Telephone encounter Note Thyroid US overall stable/okay. Thanks. Sharona Bettencourt PA-C [facility] 05-23-2024 History of Present illness Narrative Radiology Service Progress Note PATIENT NAME: Marci Marie DATE OF SERVICE: May 23, 2024 TIME: 11:12 AM PATIENT IDENTITY VERIFICATION COMPLETED USING TWO (2) IDENTIFIERS: Name and Date of confirmed by patient verbally. FALL SCREENING: Has the patient had 2 falls in the last year or 1 fall with injury or currently using an Ambulatory Assistive Device (Walker, Cane, Wheelchair, Crutches, etc.)? Yes, Patient High Risk for Falls What interventions were put in place to prevent falls during this visit? Offered Assistance with Transfers/Clothing, Instructed Patient to Remain Seated (Not on Exam Table) Until Exam, Increased Observations by Caregivers, Patient Refused Interventions/Assistance, and Escorted to/from Restroom PATIENT GENDER DATA: Assigned female at . status: : No status: NO. PATIENT RELEVANT IMPLANT DATA REVIEWED: Not Applicable PATIENT PRESENTS WITH AN IMPLANTABLE OR ATTACHED PRE BILLING SPECIALIST: No RADIOLOGY DEPARTMENT: Ultrasound PERIPHERAL IV DATA: Not applicable SIGNED BY: Liyah Mendes RDMS May 23, 2024 11:12 AM documented in this encounter [facility] 05-23-2024 Note HNO ID: [id number] Author: LIYAH MENDES RDMS Service: ? Author Type: Mini Baccarat Dealer Type: Progress Notes Filed: 05/23/2024 11:12 Note Text: Radiology Service Progress Note PATIENT NAME: Marci Marie DATE OF SERVICE: May 23, 2024 TIME: 11:12 AM PATIENT IDENTITY VERIFICATION COMPLETED USING TWO (2) IDENTIFIERS: Name and Date of confirmed by patient verbally. FALL SCREENING: Has the patient had 2 falls in the last year or 1 fall with injury or currently using an Ambulatory Assistive Device (Walker, Cane, Wheelchair, Crutches, etc.)? Yes, Patient High Risk for Falls What interventions were put in place to prevent falls during this visit? Offered Assistance with Transfers/Clothing, Instructed Patient to Remain Seated (Not on Exam Table) Until Exam, Increased Observations by Caregivers, Patient Refused Interventions/Assistance, and Escorted to/from Restroom PATIENT GENDER DATA: Assigned female at . status: : No status: NO. PATIENT RELEVANT IMPLANT DATA REVIEWED: Not Applicable PATIENT PRESENTS WITH AN IMPLANTABLE OR ATTACHED PRE BILLING SPECIALIST: No RADIOLOGY DEPARTMENT: Ultrasound PERIPHERAL IV DATA: Not applicable SIGNED BY: Liyah Mendes RDMS May 23, 2024 11:12 AM [facility] 05-23-2024 History of Present illness Narrative Radiology Service Progress Note PATIENT NAME: Marci Marie DATE OF SERVICE: May 23, 2024 TIME: 10:10 AM PATIENT IDENTITY VERIFICATION COMPLETED USING TWO (2) IDENTIFIERS: Name and Date of confirmed by patient verbally. FALL SCREENING: Has the patient had 2 falls in the last year or 1 fall with injury or currently using an Ambulatory Assistive Device (Walker, Cane, Wheelchair, Crutches, etc.)? No PATIENT GENDER DATA: Assigned female at . status: : No status: NO. PATIENT RELEVANT IMPLANT DATA REVIEWED: Not Applicable PATIENT PRESENTS WITH AN IMPLANTABLE OR ATTACHED PRE BILLING SPECIALIST: No RADIOLOGY DEPARTMENT: Bone Density PERIPHERAL IV DATA: Not applicable SIGNED BY: RT Tee(R) May 23, 2024 10:10 AM documented in this encounter [facility] 05-23-2024 Note HNO ID: [id number] Author: VALARIE CERON RT(Stacia) Service: ? Author Type: Technologist Type: Progress Notes Filed: 05/23/2024 10:28 Note Text: Radiology Service Progress Note PATIENT NAME: Marci Marie DATE OF SERVICE: May 23, 2024 TIME: 10:10 AM PATIENT IDENTITY VERIFICATION COMPLETED USING TWO (2) IDENTIFIERS: Name and Date of confirmed by patient verbally. FALL SCREENING: Has the patient had 2 falls in the last year or 1 fall with injury or currently using an Ambulatory Assistive Device (Walker, Cane, Wheelchair, Crutches, etc.)? No PATIENT GENDER DATA: Assigned female at . status: : No status: NO. PATIENT RELEVANT IMPLANT DATA REVIEWED: Not Applicable PATIENT PRESENTS WITH AN IMPLANTABLE OR ATTACHED PRE BILLING SPECIALIST: No RADIOLOGY DEPARTMENT: Bone Density PERIPHERAL IV DATA: Not applicable SIGNED BY: RT Tee(R) May 23, 2024 10:10 AM [facility] 05-19-2024 Telephone encounter Note Pt notified of results and instructions. Pt verbalizes understanding. Pt was assisted in transfer to schedule appointments. Poonam Roman LPN [facility] 05-19-2024 Miscellaneous Notes Pt notified of results and instructions. Pt verbalizes understanding. Pt was assisted in transfer to schedule appointments. Poonam Roman LPN Images from the original note were not included. Let patient know that her bone, liver and intestine portions of alkphos are all elevated. Need to get a bone scan and set up a follow up with gastro. Her levels are concerning for liver fibrosis. Repeat calcium is okay. Sharona Bettencourt PA-C FIB-4 Calculation: 3.17 at 04/15/2024 1:10 PM Calculated from: SGOT/AST: 49 U/L at 04/15/2024 1:10 PM SGPT/ALT: 59 U/L at 04/15/2024 1:10 PM Platelets: 165 k/uL at 04/15/2024 1:10 PM Age: 84 years documented in this encounter [facility] 05-19-2024 Telephone encounter Note Images from the original note were not included. Let patient know that her bone, liver and intestine portions of alkphos are all elevated. Need to get a bone scan and set up a follow up with gastro. Her levels are concerning for liver fibrosis. Repeat calcium is okay. Sharona Bettencourt PA-C FIB-4 Calculation: 3.17 at 04/15/2024 1:10 PM Calculated from: SGOT/AST: 49 U/L at 04/15/2024 1:10 PM SGPT/ALT: 59 U/L at 04/15/2024 1:10 PM Platelets: 165 k/uL at 04/15/2024 1:10 PM Age: 84 years [facility] 05-14-2024 Note HNO ID: [id number] Author: SHARONA BETTENCOURT PA-C Service: ? Author Type: Physician Clinical Nurse Manager Type: Progress Notes Filed: 05/14/2024 14:41 Note Text: Chief Complaint Patient presents with: Recheck: Blood pressure HPI Marci Marie is a 84 year old female who presents here today for Above Complaints.. At last visit we increased coreg to 6.25mg BID. Patient states that her home readings have been around 134/60s over the past week. Never over 160/100 since med adjustment. Past medical history, appointments, medications, allergies reviewed. Previous Medical History PAST MEDICAL HISTORY Diagnosis Date Acquired deformity of left toe 03/21/2021 second and third digits Adjustment disorder with depressed mood 01/19/2020 Aortic stenosis, mild 12/02/[address] 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 Corns and callus 09/18/2016 Current severe episode of major depressive disorder with psychotic features without prior episode ([facility]) 01/19/2020 Diabetic eye exam ([facility]) 08/21/2016 Last Done: 08/09/2017 No Retinopathy Diaphragmatic hernia without mention of obstruction or gangrene Diastolic congestive heart failure ([facility]) 07/03/2022 Elevated alkaline phosphatase level 08/28/2018 Elevated serum GGT level 07/03/2017 Essential hypertension 07/13/2014 Foot callus 03/21/2021 SAMEER (generalized anxiety disorder) 09/05/2018 Gastroesophageal reflux disease with esophagitis 04/23/2015 Herpes zoster mild occasional neuralgia in left cervical area. Hiatal hernia History of colon polyps Mixed hyperlipidemia Morbid obesity with BMI of 40.0-44.9, adult ([facility]) 06/19/2016 Multiple thyroid nodules 03/24/2021 US 03/2021: Needs yearly f/u for 5 yrs OAB (overactive bladder) 10/10/2022 Osteopenia 04/24/2011; Start vitamin d 1,000/day and RE-CHECK 2013 Personal history of other malignant neoplasm of skin 02/26/2009 Schatzki's ring Sebaceous cyst 07/03/2017 lower anterior neck Skin cancer, basal cell 04/23/2015 nose Stricture and stenosis of esophagus egd/dilatation by Dr. Hollins; Tinnitus of both ears 12/26/2021 Due to hearing loss. Type 2 diabetes mellitus with proteinuria ([facility]) (HCC) 07/07/2013 Uncontrolled type 2 diabetes mellitus with hyperglycemia (HCC) 01/02/2020 Venous (peripheral) insufficiency 12/21/2015 Vitamin D deficiency 11/26/2015 Previous Surgical History PAST SURGICAL HISTORY Procedure Laterality Date 2D ECHO (EXEP) 12/02/2015 EF=59% mild LVH, mild MR,TR and 2D ECHO (EXEP) 02/13/2020 EF=65%, mild dilated LA, 1+ MR and CHOLECYSTECTOMY Cholecystectomy COLONOSCOPY 11/04/2018 Sessile serrated polyp, Tubullovillous adenoma. Dr. Filemon Galvan. COLONOSCOPY SCRN NOT HIGH RISK 06/10/2003 upper and lower EGD 08/17/2009 Dr. Theo Hollins EGD DILATION 11/04/2018 Schatzi's Ring, mild reactive gastropathy. Dr. Filemon Galvan. ESOPHAGOGASTRODUODENOSCOPY TRANSORAL DIAGNOSTIC 06/2003 EGD EXERCISE ECG STRESS TEST 03/02/2020 negative NOSE SURGERY HX 2006 Nasal fracture repair REVISE MEDIAN N/CARPAL TUNNEL SURG Right 09/14/2022 TONSILLECTOMY AND ADENOIDECTOMY HX WRIST SURGERY HX 12/1988 Broken Left wrist surgery at [facility] - Dr. Dlegado Family History FAMILY HISTORY Problem Relation Age of Onset Allergies Mother Heart Mother Asthma Mother Alzheimer's Disease Father Heart disease Father Hypertension Father Hypertension Maternal Grandmother DVT Maternal Grandmother Stroke Paternal Grandmother Stroke Paternal Grandfather Hypertension Brother Diabetes Brother Patient Allergies ALLERGIES Allergen Reactions Codeine Rash Penicillins Rash Pioglitazone Other: See Comments Increased leg edema and CHF symptoms Prednisone Rash Acetaminophen Other: See Comments Niacin Unknown Celebrex [Celecoxib] Unknown Niacin Rash Sulfa (Sulfonamide * Rash Current Medications Current Outpatient Medications on File Prior to Visit Medication Sig carvedilol (COREG) 6.25 mg tablet Take 1 tablet by mouth two times a day with meals. insulin glargine (LANTUS SOLOSTAR U-100 INSULIN) 100 unit/mL (3 mL) Inject 10 Units subcutaneously daily at bedtime. Insulin [place], Disposable, (PEN NEEDLE) 32 gauge x 5/32 Inject 1 Each subcutaneously every 24 hours. Give with each insulin administration. SITagliptin phosphate (JANUVIA) 100 mg tablet Take 1 tablet by mouth once daily. lisinopril (ZESTRIL) 40 mg tablet Take 1 tablet by mouth two times a day. hydroCHLOROthiazide 25 mg tablet Take 1 tablet by mouth once daily. furosemide (LASIX) 40 mg tablet Take 1 tablet by mouth as needed. glimepiride (AMARYL) 2 mg tablet Take 1 tablet by mouth daily with dinner. amLODIPine (NORVASC) 5 mg tablet Take 1 tablet by mouth once daily. met (more content not included)... [facility] 05-14-2024 History of Present illness Narrative Chief Complaint Patient presents with: Recheck: Blood pressure HPI Marci Marie is a 84 year old female who presents here today for Above Complaints.. At last visit we increased coreg to 6.25mg BID. Patient states that her home readings have been around 134/60s over the past week. Never over 160/100 since med adjustment. Past medical history, appointments, medications, allergies reviewed. Previous Medical History PAST MEDICAL HISTORY Diagnosis Date Acquired deformity of left toe 03/21/2021 second and third digits Adjustment disorder with depressed mood 01/19/2020 Aortic stenosis, mild 12/02/[address] 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 Hiatal hernia History of colon polyps Mixed hyperlipidemia Morbid obesity with BMI of 40.0-44.9, adult (HCC) 06/19/2016 Multiple thyroid nodules 03/24/2021 US 03/2021: Needs yearly f/u for 5 yrs OAB (overactive bladder) 10/10/2022 Osteopenia 04/24/2011; Start vitamin d 1,000/day and RE-CHECK 2013 Personal history of other malignant neoplasm of skin 02/26/2009 Schatzki's ring Sebaceous cyst 07/03/2017 lower anterior neck Skin cancer, basal cell 04/23/2015 nose Stricture and stenosis of esophagus egd/dilatation by Dr. Hollins; Tinnitus of both ears 12/26/2021 Due to hearing loss. 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 Dr. Filemon Galvan. COLONOSCOPY SCRN NOT HIGH RISK 06/10/2003 upper and lower EGD 08/17/2009 Dr. Theo Hollins EGD DILATION 11/04/2018 Schatzi's Ring, mild reactive gastropathy. Dr. Filemon Galvan. ESOPHAGOGASTRODUODENOSCOPY TRANSORAL DIAGNOSTIC 06/2003 EGD EXERCISE ECG STRESS TEST 03/02/2020 negative NOSE SURGERY HX 2006 Nasal fracture repair REVISE MEDIAN N/CARPAL TUNNEL SURG Right 09/14/2022 TONSILLECTOMY AND ADENOIDECTOMY HX WRIST SURGERY HX 12/1988 Broken Left wrist surgery at [facility] - Dr. Delgado Family History FAMILY HISTORY Problem Relation Age of Onset Allergies Mother Heart Mother Asthma Mother Alzheimer's Disease Father Heart disease Father Hypertension Father Hypertension Maternal Grandmother DVT Maternal Grandmother Stroke Paternal Grandmother Stroke Paternal Grandfather Hypertension Brother Diabetes Brother Patient Allergies ALLERGIES Allergen Reactions Codeine Rash Penicillins Rash Pioglitazone Other: See Comments Increased leg edema and CHF symptoms Prednisone Rash Acetaminophen Other: See Comments Niacin Unknown Celebrex [Celecoxib] Unknown Niacin Rash Sulfa (Sulfonamide * Rash Current Medications Current Outpatient Medications on File Prior to Visit Medication Sig carvedilol (COREG) 6.25 mg tablet Take 1 tablet by mouth two times a day with meals. insulin glargine (LANTUS SOLOSTAR U-100 INSULIN) 100 unit/mL (3 mL) Inject 10 Units subcutaneously daily at bedtime. Insulin [place], Disposable, (PEN NEEDLE) 32 gauge x 5/32 Inject 1 Each subcutaneously every 24 hours. Give with each insulin administration. SITagliptin phosphate (JANUVIA) 100 mg tablet Take 1 tablet by mouth once daily. lisinopril (ZESTRIL) 40 mg tablet Take 1 tablet by mouth two times a day. hydroCHLOROthiazide 25 mg tablet Take 1 tablet by mouth once daily. furosemide (LASIX) 40 mg tablet Take 1 tablet by mouth as needed. glimepiride (AMARYL) 2 mg tablet Take 1 tablet by mouth daily with dinner. amLODIPine (NORVASC) 5 mg tablet Take 1 tablet by mouth once daily. metFORMIN (GLUCOPHAGE) 500 mg tablet Take by mouth. take 2 tabs w/breakfast;1 tab with lunch and TWO tabs w/ dinner nitroglycerin sublingual (NITROQUICK) 0.4 mg SL tablet Dissolve 1 tablet under the tongue as needed. FOR CHEST PAIN. IF NO RELIEF CALL 911 Blood-Glucose Meter,Continuous (FREESTYLE KIRK 3 READER) [facility] [place] Check blood sugars 3-4 times a day Dx: E11.65 no insulin Blood-Glucose Sensor (FREESTYLE KIRK 3 SENSOR) em Apply a new sensor once every 2 weeks. Check blood sugars 3-4 times a day Dx: E11.65 no insulin Cholecalciferol, Vitamin D3, 2,000 unit cap Take 3 capsules by mouth once daily. No current facility-administered medications on file prior to visit. Social History Social History Tobacco Use Smoking status: Never Smokeless tobacco: Never Tobacco comments: 2nd hand Vaping Use Vaping status: Never Used Substance Use Topics Alcohol use: No Drug use: No Review of Symptoms REVIEW OF SYSTEMS GENERAL: No weight loss, malaise or fevers RESPIRATORY: Negative for cough, hemoptysis, wheezing, COPD, dyspnea or shortness of breath CARDIOVASCULAR: Negative for chest pain, leg swelling, hypertension, CHF or palpitations EXAM: BP 136/68 Pulse 72 Temp 36.2 C (97.1 F) Resp 18 Wt 103 kg (227 lb) LMP (LMP Unknown) SpO2 98% BMI 38.52 kg/m General Appearance: Well appearing, alert, in no acute distress, well-hydrated, well nourished.. Health Maintenance List Shingrix Vaccine(1 of 2) Never done RSV Vaccine(1 - 1-dose 75+ series) Never done Covid-19 Vaccine( season) due on 07/01/2024 HbA1C due on 07/14/2024 Dilated Retinal Exam due on 03/04/2025 LDL Cholesterol due on 04/15/2025 Diabetic Foot Exam due on 04/15/2025 Depression Screening due on 04/15/2025 DTaP,Tdap,Td Vaccine(5 - Td or Tdap) due on 12/27/2025 Bone Density Screening Completed Influenza Vaccine Completed Pneumococcal Vaccine: 50+ Completed Urine Albumin:Creatinine Ratio Discontinued Colorectal Cancer Screening Discontinued Advance Directive Discussion Discontinued Data reviewed N/a ASSESSMENT/PLAN: 1. Hypertension, essential - ICD9: 401.9, ICD10: I10 (primary diagnosis) - Controlled - Continue current medications - Recommend home blood pressure monitoring, to bring results to next visit - Encouraged sodium restriction, DASH or Mediterranean diet - Recommend regular aerobic exercise 2. Uncontrolled type 2 diabetes mellitus with hyperglycemia (HCC) - ICD9: 250.02, ICD10: E11.65 Patient needs rescheduled with endo - CONSULT TO PODIATRY 3. Ingrown toenail - ICD9: 703.0, ICD10: L60.0 Patient requests podiatry visit. - CONSULT TO PODIATRY Sharona Bettencourt PA-C documented in this encounter [facility] 04-30-2024 Evaluation note Diagnosis Onset Date Resolution Difficulty swallowing acute Franko uary 2024 3:23pm IBS (irritable bowel syndrome) acute April 30 3:23pm GERD (gastroesophageal reflux disease) chronic April 30 3:23pm [facility] Work Phone: 1(870) 471-587701-28-2025 Instructions* Patient Instructions* Sharona Bettencourt PA-C - 04/29/2024 12:02 PM EST Increase carvedilol to 6.25mg twice a day. (So take 2 of the 3.125mg tablets twice a day.) Keep close eye on home BP. Call the office if over 180/100. Continue all other bp medications for now. Keep follow up on 05/14 but return sooner as needed. documented [facility]25 NoteHNO ID: [id number] Author: SHARONA BETTENCOURT PA-C Service: ? Author Type: Physician Clinical Nurse Manager Type: Progress Notes Filed: 04/29/2024 13:11 Note Text: Chief Complaint Patient presents with: ER F/U HPI Marci Marie is a 84 year old female who presents here today for ER Follow Up.. Patient presented to ER via squad due to headaches/hearing changes. BP was 217/100. Workup at ER was negative. She was given clonidine to help lower BP. Patient states that for the past few days she is only taking the clonidine. She has not been taking her other BP medications since then. States she thought that the ER doctor and pharmacist told her. She states did take her lisinopril this morning. Past medical history, appointments, medications, allergies reviewed. Previous Medical History PAST MEDICAL HISTORY Diagnosis Date Acquired deformity of left toe 03/21/2021 second and third digits Adjustment disorder with depressed mood 01/19/2020 Aortic stenosis, mild 12/02/[address] 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 Hiatal hernia History of colon polyps Mixed hyperlipidemia Morbid obesity with BMI of 40.0-44.9, adult ([facility]) 06/19/2016 Multiple thyroid nodules 03/24/2021 03/2021: Needs yearly f/u for 5 yrs OAB (overactive bladder) 10/10/2022 Osteopenia 04/24/2011; Start vitamin d 1,000/day and RE-CHECK 2013 Personal history of other malignant neoplasm of skin 02/26/2009 Schatzki's ring Sebaceous cyst 07/03/2017 lower anterior neck Skin cancer, basal cell 04/23/2015 nose Stricture and stenosis of esophagus egd/dilatation by Dr. Hollins; Tinnitus of both ears 12/26/2021 Due to hearing loss. Type 2 diabetes mellitus with proteinuria ([facility]) ([facility]) 07/07/2013 Uncontrolled type 2 diabetes mellitus with hyperglycemia ([facility]) 01/02/2020 Venous (peripheral) insufficiency 12/21/2015 Vitamin D deficiency 11/26/2015 Previous Surgical History PAST SURGICAL HISTORY Procedure Laterality Date 2D ECHO (EXEP) 12/02/2015 EF=59% mild LVH, mild MR,TR and 2D ECHO (EXEP) 02/13/2020 EF=65%, mild dilated LA, 1+ MR and CHOLECYSTECTOMY Cholecystectomy COLONOSCOPY 11/04/2018 Sessile serrated polyp, Tubullovillous adenoma. Dr. Filemon Galvan. COLONOSCOPY SCRN NOT HIGH RISK 06/10/2003 upper and lower EGD 08/17/2009 Dr. Theo Hollins EGD DILATION 11/04/2018 Schatzi's Ring, mild reactive gastropathy. Dr. Filemon Galvan. ESOPHAGOGASTRODUODENOSCOPY TRANSORAL DIAGNOSTIC 06/2003 EGD EXERCISE ECG STRESS TEST 03/02/2020 negative NOSE SURGERY HX 2006 Nasal fracture repair REVISE MEDIAN N/CARPAL TUNNEL SURG Right 09/14/2022 TONSILLECTOMY AND ADENOIDECTOMY HX WRIST SURGERY HX 12/1988 Broken Left wrist surgery at [facility] - Dr. Delgado Family History FAMILY HISTORY Problem Relation Age of Onset Allergies Mother Heart Mother Asthma Mother Alzheimer's Disease Father Heart disease Father Hypertension Father Hypertension Maternal Grandmother DVT Maternal Grandmother Stroke Paternal Grandmother Stroke Paternal Grandfather Hypertension Brother Diabetes Brother Patient Allergies ALLERGIES Allergen Reactions Codeine Rash Penicillins Rash Pioglitazone Other: See Comments Increased leg edema and CHF symptoms Prednisone Rash Acetaminophen Other: See Comments Niacin Unknown Celebrex [Celecoxib] Unknown Niacin Rash Sulfa (Sulfonamide * Rash Current Medications Current Outpatient Medications on File Prior to Visit Medication Sig SITagliptin phosphate (JANUVIA) 100 mg tablet Take 1 tablet by mouth once daily. lisinopril (ZESTRIL) 40 mg tablet Take 1 tablet by mouth two times a day. hydroCHLOROthiazide 25 mg tablet Take 1 tablet by mouth once daily. furosemide (LASIX) 40 mg tablet Take 1 tablet by mouth as needed. glimepiride (AMARYL) 2 mg tablet Take 1 tablet by mouth daily with dinner. carvedilol (COREG) 3.125 mg tablet Take 1 tablet by mouth two times a day with meals. amLODIPine (NORVASC) 5 mg tablet Take 1 tablet by mouth once daily. metFORMIN (GLUCOPHAGE) 500 mg tablet Take by mouth. t (more content not included)...[facility]01-28-2025 History of Present illness Narrative* Sharona Bettencourt PA-C - 04/29/2024 11:50 AM EST Chief Complaint Patient presents with: ER F/U HPI Marci Marie is a 84 year old female who presents here today for ER Follow Up.. Patient presented to ER via squad due to headaches/hearing changes. BP was 217/100. Workup at ER was negative. She was given clonidine to help lower BP. Patient states that for the past few days she is only taking the clonidine. She has not been takingher other BP medications since then. States she thought that the ER doctor and pharmacist told her. She states did take her lisinopril this morning. Past medical history, appointments, medications, allergies reviewed. Previous Medical History PAST MEDICAL HISTORY Diagnosis Date Acquired deformity of left toe 03/21/2021 second and third digits Adjustment disorder with depressed mood 01/19/2020 Aortic stenosis, mild 12/02/[address] 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 Corns and callus 09/18/2016 Current severe episode of major depressive disorder with psychotic features without prior episode ([facility]) 01/19/2020 Diabetic eye exam ([facility]) 08/21/2016 Last Done: 08/09/2017 No Retinopathy Diaphragmatic hernia without mention of obstruction or gangrene Diastolic congestive heart failure ([facility]) 07/03/2022 Elevated alkaline phosphatase level 08/28/2018 Elevated serum GGT level 07/03/2017 Essential hypertension 07/13/2014 Foot callus 03/21/2021 SAMEER (generalized anxiety disorder) 09/05/2018 Gastroesophageal reflux disease with esophagitis 04/23/2015 Herpes zoster mild occasional neuralgia in left cervical area. Hiatal hernia History of colon polyps Mixed hyperlipidemia Morbid obesity with BMI of 40.0-44.9, adult ([facility]) 06/19/2016 Multiple thyroid nodules 03/24/2021 03/2021: Needs yearly f/u for 5 yrs OAB (overactive bladder) 10/10/2022 Osteopenia 04/24/2011; Start vitamin d 1,000/day and RE-CHECK 2013 Personal history of other malignant neoplasm of skin 02/26/2009 Schatzki's ring Sebaceous cyst 07/03/2017 lower anterior neck Skin cancer, basal cell 04/23/2015 nose Stricture and stenosis of esophagus egd/dilatation by Dr. Hollins; Tinnitus of both ears 12/26/2021 Due to hearing loss. Type 2 diabetes mellitus with proteinuria ([facility]) ([facility]) 07/07/2013 Uncontrolled type 2 diabetes mellitus with hyperglycemia ([facility]) 01/02/2020 Venous (peripheral) insufficiency 12/21/2015 Vitamin D deficiency 11/26/2015 Previous Surgical History PAST SURGICAL HISTORY Procedure Laterality Date 2D ECHO (EXEP) 12/02/2015 EF=59% mild LVH, mild MR,TR and 2D ECHO (EXEP) 02/13/2020 EF=65%, mild dilated LA, 1+ MR and CHOLECYSTECTOMY Cholecystectomy COLONOSCOPY 11/04/2018 Sessile serrated polyp, Tubullovillous adenoma. Dr. Filemon Galvan. COLONOSCOPY SCRN NOT HIGH RISK 06/10/2003 upper and lower EGD 08/17/2009 Dr. Theo Hollins EGD DILATION 11/04/2018 Schatzi's Ring, mild reactive gastropathy. Dr. Filemon Galvan. ESOPHAGOGASTRODUODENOSCOPY TRANSORAL DIAGNOSTIC 06/2003 EGD EXERCISE ECG STRESS TEST 03/02/2020 negative NOSE SURGERY HX 2006 Nasal fracture repair REVISE MEDIAN N/CARPAL TUNNEL SURG Right 09/14/2022 TONSILLECTOMY AND ADENOIDECTOMY HX WRIST SURGERY HX 12/1988 Broken Left wrist surgery at [facility] - Dr. Delgado Family History FAMILY HISTORY Problem Relation Age of Onset Allergies Mother Heart Mother Asthma Mother Alzheimer's Disease Father Heart disease Father Hypertension Father Hypertension Maternal Grandmother DVT Maternal Grandmother Stroke Paternal Grandmother Stroke Paternal Grandfather Hypertension Brother Diabetes Brother Patient Allergies ALLERGIES Allergen Reactions Codeine Rash Penicillins Rash Pioglitazone Other: See Comments Increased leg edema and CHF symptoms Prednisone Rash Acetaminophen Other: See Comments Niacin Unknown Celebrex [Celecoxib] Unknown Niacin Rash Sulfa (Sulfonamide * Rash Current Medications Current Outpatient Medications on File Prior to Visit Medication Sig SITagliptin phosphate (JANUVIA) 100 mg tablet Take 1 tablet by mouth once daily. lisinopril (ZESTRIL) 40 mg tablet Take 1 tablet by mouth two times a day. hydroCHLOROthiazide 25 mg tablet Take 1 tablet by mouth once daily. furosemide (LASIX) 40 mg tablet Take 1 tablet by mouth as needed. glimepiride (AMARYL) 2 mg tablet Take 1 tablet by mouth daily with dinner. carvedilol (COREG) 3.125 mg tablet Take 1 tablet by mouth two times a day with meals. amLODIPine (NORVASC) 5 mg tablet Take 1 tablet by mouth once daily. metFORMIN (GLUCOPHAGE) 500 mg tablet Take by mouth. take 2 tabs w/breakfast;1 tab with lunch and TWO tabs w/ dinner nitroglycerin sublingual (NITROQUICK) 0.4 mg SL tablet Dissolve 1 tablet under the tongue as needed. FOR CHEST PAIN. IF NO RELIEF CALL 911 Cholecalciferol, Vitamin D3, 2,000 unit cap Take 3 capsules by mouth once daily. insulin glargine (LANTUS SOLOSTAR U-100 INSULIN) 100 unit/mL (3 mL) Inject 10 Units subcutaneously daily at bedtime. Insulin [place], Disposable, (PEN NEEDLE) 32 gauge x 5/32 Inject 1 Each subcutaneously every 24 hours. Give with each insulin administration. Blood-Glucose Meter,Continuous (FREESTYLE KIRK 3 READER) [facility] [place] Check blood sugars 3-4 times a day Dx: E11.65 no insulin Blood-Glucose Sensor (FREESTYLE KIRK 3 SENSOR) em Apply a new sensor once every 2 weeks. Check blood sugars 3-4 times a day Dx: E11.65 no insulin No current facility-administered medications on file prior to visit. Social History Social History Tobacco Use Smoking status: Never Smokeless tobacco: Never Tobacco comments: 2nd hand Vaping Use Vaping status: Never Used Substance Use Topics Alcohol use: No Drug use: No Review of Symptoms REVIEW OF SYSTEMS See hpi EXAM: BP 157/63 (BP Site: Left Arm, BP Position: Sitting, BP Cuff Size: Regular Adult) Pulse 82 Temp 36.6 C (97.9 F) Resp 18 LMP (LMP Unknown) General Appearance: Well appearing, alert, in no acute distress, well-hydrated, well nourished.. Lungs: Lungs clear to auscultation. No wheezing, rhonchi, rales.. Heart: RRR without murmur, gallop, or rubs. No ectopy. Health Maintenance List Shingrix Vaccine(1 of 2) Never done RSV Vaccine(1 - 1-dose 75+ series) Never done Dilated Retinal Exam due on 08/09/2018 HbA1C due on 07/14/2024 LDL Cholesterol due on 04/15/2025 Diabetic Foot Exam due on 04/15/2025 Depression Screening due on 04/15/2025 DTaP,Tdap,Td Vaccine(5 - Td or Tdap) due on 12/27/2025 Bone Density Screening Completed Influenza Vaccine Completed Covid-19 Vaccine Completed Pneumococcal Vaccine: 50+ Completed HPV Vaccine Aged Out Urine Albumin:Creatinine Ratio Discontinued Colorectal Cancer Screening Discontinued Advance Directive Discussion Discontinued Data reviewed ASSESSMENT/PLAN: 1. Hypertension, essential - ICD9: 401.9, ICD10: I10 - Uncontrolled - Increase coreg to 6.25 BID. Continue other medications for now. Close follow up with BP check that I will review later this week and keep follow up on 05/14. Discussed possible red flags and when to seek medical attention. - Recommend home blood pressure monitoring, to bring results to next visit - Encouraged sodium restriction, DASH or Mediterranean diet - Recommend regular aerobic exercise Sharona Bettencourt PA-C documented [facility]25 NoteHNO ID: [id number] Author: JUDITH PARRISH MA Service: ? Author Type: Battery Container Tester Aluminum Type: Progress Notes Filed: 04/29/2024 08:11 Note Text: Scan on 04/23/2024 9:01 AM by ProviderMarissa PA-C: Consultation - Emergency Medicine Patient scheduled for ER follow up 04/29/2024. Judith Parrish [facility]01-28-2025 History of Present illness Narrative* Judith Parrish MA - 04/29/2024 8:11 AM EST Scan on 04/23/2024 9:01 AM by ProviderMarissa PA-C: Consultation - Emergency Medicine Patient scheduled for ER follow up 04/29/2024. Judith Parrish MA documented in this encounterOur [facility] History of Present illness Narrative* Liyah Mendes RDMS - 04/28/2024 10:00 AM EST Radiology Service Progress Note PATIENT NAME: Marci Marie DATE OF SERVICE: April 28, 2024 TIME: 10:39 AM PATIENT IDENTITY VERIFICATION COMPLETED USING TWO (2) IDENTIFIERS: Name and Date of confirmedby patient verbally. FALL SCREENING: Has the patient had 2 falls in the last year or 1 fall with injury or currently using an Ambulatory Assistive Device (Walker, Cane, Wheelchair, Crutches, etc.)? Yes, Patient High Riskfor Falls What interventions were put in place to prevent falls during this visit? Instructed Patient to Callfor Help if Needed, Offered Assistance with Transfers/Clothing, Instructed Patient to Remain Seated(Not on Exam Table) Until Exam, and Increased Observations by Caregivers PATIENT GENDER DATA: Assigned female at . status: : No status:NO. PATIENT RELEVANT IMPLANT DATA REVIEWED: Not Applicable PATIENT PRESENTS WITH AN IMPLANTABLE OR ATTACHED PRE BILLING SPECIALIST: No RADIOLOGY DEPARTMENT: Ultrasound PERIPHERAL IV DATA: Not applicable SIGNED BY: Liyah Mendes RDMS April 28, 2024 10:39 AM documented in this encounterOur [facility]01-27-2025 NoteHNO ID: [id number] Author: LIYAH MENDES RDMS Service: ? Author Type: Mini Baccarat Dealer Type: Progress Notes Filed: 04/28/2024 10:39 Note Text: Radiology Service Progress Note PATIENT NAME: Marci Marie DATE OF SERVICE: April 28, 2024 TIME: 10:39 AM PATIENT IDENTITY VERIFICATION COMPLETED USING TWO (2) IDENTIFIERS: Name and Date of confirmed by patient verbally. FALL SCREENING: Has the patient had 2 falls in the last year or 1 fall with injury or currently using an Ambulatory Assistive Device (Walker, Cane, Wheelchair, Crutches, etc.)? Yes, Patient High Risk for Falls What interventions were put in place to prevent falls during this visit? Instructed Patient to Call for Help if Needed, Offered Assistance with Transfers/Clothing, Instructed Patient to Remain Seated (Not on Exam Table) Until Exam, and Increased Observations by Caregivers PATIENT GENDER DATA: Assigned female at . status: : No status: NO. PATIENT RELEVANT IMPLANT DATA REVIEWED: Not Applicable PATIENT PRESENTS WITH AN IMPLANTABLE OR ATTACHED PRE BILLING SPECIALIST: No RADIOLOGY DEPARTMENT: Ultrasound PERIPHERAL IV DATA: Not applicable SIGNED BY: Liyah Mendes RDMS April 28, 2024 10:39 [facility]01-16-2025 Telephone encounter Note* Telephone Encounter - Suzanna Pimentel RN - 04/17/2024 1:41 PM EST Yessenia Pharmacist with [facility] called and is notified of providers message. She voices understanding. Suzanna Pimentel RN [facility]01-16-2025 Miscellaneous Notes* Telephone Encounter - Suzanna Pimentel RN - 04/17/2024 1:41 PM EST Yessenia Pharmacist with [facility] called and is notified of providers message. She voices understanding. Suzanna Pimentel RN * Telephone Encounter - Arturo Amaya MD - 04/17/2024 1:27 PM EST Let Pharmacist know that we mean one box. Our system only gives us the choice of ML's or each we can ot select box. However as a provider we were always told the pharmacy can not break up a boxand give the patient only one pen and so for us each has always been a box. * Telephone Encounter - Suzanna Pimentel RN - 04/17/2024 1:17 PM EST Yessenia Pharmacist with [facility] called in and was asking about the Lantus. She wanted to know when the provider says to dispense 1 each, does he want 1 pen or 1 box of 5 pens. Please call back. documented in this encounterOur [facility]01-[facility]25 Telephone encounter Note * Telephone Encounter - Arturo Amaya MD - 04/17/2024 1:27 PM EST Let Pharmacist know that we mean one box. Our system only gives us the choice of ML's or each we can ot select box. However as a provider we were always told the pharmacy can not break up a boxand give the patient only one pen and so for us each has always been a box. [facility]01-[facility] Telephone encounter Note* Telephone Encounter - Suzanna Pimentel RN - 04/17/2024 1:17 PM EST Yessenia Pharmacist with [facility] called in and was asking about the Lantus. She wanted to know when the provider says to dispense 1 each, does he want 1 pen or 1 box of 5 pens. Please call back. [facility]01-[facility] Telephone encounter Note* Telephone Encounter - Sharona Bettencourt PA-C - 04/17/2024 12:20 PM EST The following approved medication requests have been transmitted electronically. Requested Prescriptions Signed Prescriptions Disp Refills insulin glargine (LANTUS SOLOSTAR U-100 INSULIN) 100 unit/mL (3 mL) 1 Each 2 Sig: Inject 10 Units subcutaneously daily at bedtime. Authorizing Provider: SHARONA BETTENCOURT Insulin [place], Disposable, (PEN NEEDLE) 32 gauge x 5/32 100 Each 3 Sig: Inject 1 Each subcutaneously every 24 hours. Give with each insulin administration. Authorizing Provider: SHARONA BETTENCOURT PA-C [facility]01-16-[facility] Miscellaneous Notes* Telephone Encounter - Sharona Bettencourt PA-C - 04/17/2024 12:20 PM EST The following approved medication requests have been transmitted electronically. Requested Prescriptions Signed Prescriptions Disp Refills insulin glargine (LANTUS SOLOSTAR U-100 INSULIN) 100 unit/mL (3 mL) 1 Each 2 Sig: Inject 10 Units subcutaneously daily at bedtime. Authorizing Provider: SHARONA BETTENCOURT Insulin [place], Disposable, (PEN NEEDLE) 32 gauge x 5/32 100 Each 3 Sig: Inject 1 Each subcutaneously every 24 hours. Give with each insulin administration. Authorizing Provider: SHARONA BETTENCOURT PA-C * Telephone Encounter - Darcie Pichardo LPN - 04/17/2024 12:08 PM EST Spoke with pt and information listed below given. 1)pt did blood sugar at 12:00 pm it is 525. Pt got new machine. Pt not having any symptoms. Pt had a large breakfast this am cheerios, banana and 2 pcs of toast. 2) pt has been off her 3 meds for 1 week and just started back on them today 04-17-24. 3)pt willing to start on Insulin 4) I did a warm transfer to silver recovery operator to let them know what pt needed. Apts. 5) pt will get in to get fasting blood work done. Not today due to weather. Please advise pt back. Darcie Pichardo LPN * Telephone Encounter - Poonam Roman LPN - 04/17/2024 11:36 AM EST Left message for pt to contact office. Poonam Roman LPN * Telephone Encounter - Sharona Bettencourt PA-C - 04/17/2024 10:51 AM EST Patient's glucose is very high at 492. How does she feel. Any confusion, excessive fatigue. Can shecheck her glucose on the phone? Her A1c is 13.7 and previously 12.9. she told me she is taking her medications and previously told dr. Amaya she was off medications. So as long as she is being honest, her levels have increased despite being on meds. She needs to start seeing endocrinology [place]. Consult placed. In meantime is shewilling to start insulin. She also needs to drink plenty of fluids to protect her kidneys. Her liver enzymes are also elevated. Need US and repeat labs fasting. Her calcium is elevated. Again need to repeat. Her cholesterol is elevated. May need to consider med changes in near future Sharona Bettencourt PA-C documented [facility] Telephone encounter Note * Telephone Encounter - Darcie Pichardo LPN - 04/17/2024 12:08 PM EST Spoke with pt and information listed below given. 1)pt did blood sugar at 12:00 pm it is 525. Pt got new machine. Pt not having any symptoms. Pt had a large breakfast this am cheerios, banana and 2 pcs of toast. 2) pt has been off her 3 meds for 1 week and just started back on them today 04-17-24. 3)pt willing to start on Insulin 4) I did a warm transfer to [facility] to let them know what pt needed. Apts. 5) pt will get in to get fasting blood work done. Not today due to weather. Please advise pt back. Darcie Pichardo LPN [facility]01-16-[facility] Telephone encounter Note* Telephone Encounter - Poonam Roman LPN - 04/17/2024 11:36 AM EST Left message for pt to contact office. Poonam Roman LPN [facility]01-[facility] Telephone encounter Note* Telephone Encounter - Sharona Bettencourt PA-C - 04/17/2024 10:51 AM EST Patient's glucose is very high at 492. How does she feel. Any confusion, excessive fatigue. Can shecheck her glucose on the phone? Her A1c is 13.7 and previously 12.9. she told me she is taking her medications and previously told dr. Amaya she was off medications. So as long as she is being honest, her levels have increased despite being on meds. She needs to start seeing endocrinology [place]. Consult placed. In meantime is shewilling to start insulin. She also needs to drink plenty of fluids to protect her kidneys. Her liver enzymes are also elevated. Need US and repeat labs fasting. Her calcium is elevated. Again need to repeat. Her cholesterol is elevated. May need to consider med changes in near future Sharona Bettencourt PA-C [facility]01-14-2025 Instructions* Patient Instructions* Sharona Bettencourt PA-C - 04/15/2024 12:07 PM EST Labs today Set up bone density scan Antibiotic sent for your toe. Follow up with podiatry. I increased amlodipine for better BP control. Recheck BP in 4 weeks in office. I have placed consults to urology and gastroenterology. WHAT YOU CAN DO TO PREVENT FALLS Many falls can be prevented. By making some changes, you can lower your chances of falling. Four things YOU can do to prevent falls for you* and your caregiver 1. Begin a regular exercise program Exercise is one of the most important ways to lower your chances of falling. It makes you stronger and helps you feel better. Exercises that improve balance and coordination (like Vasu Chi) are the most helpful. Lack of exercise leads to weakness and increases your chances of falling. Ask your doctor or health care provider about the best type of exercise program for you. 2. Have your health care provider review your medicines Have your doctor or pharmacist review all the medicines you take, even [id number] medicines. As you get older, the way medicines work in your body can change. Some medicines, or combinations of medicines, can make you sleepy or dizzy andcan cause you to fall. 3. Have your vision checked Have your eyes checked by an eye doctor at least once a year. You may be wearing the wrong glasses or have a condition like glaucoma or cataracts that limits your vision. Poor vision can increase your chances of falling. 4. Make your home safer About half of all falls happen at home. To make your home safer: Remove things you can trip over (like papers, books, clothes, and shoes) from stairs and places where you walk. Remove small throw rugs or use double-sided tape to keep the rugs from slipping. Keep items you use often in cabinets you can reach easily without using a step stool. Have grab bars put in next to your toilet and in the tub or shower. Use non-slip mats in the bathtub and on shower floors. Improve the lighting in your home. As you get older, you need brighter lights to see well. Hang light-weight curtains or shades to reduce glare. Have handrails and lights put in on all staircases. Wear shoes both inside and outside the house. Avoid going barefoot or wearing slippers. For more information, contact: Centers for Disease Control and Prevention www.cdc.gov/injury * This information may not apply if you have certain medical conditions. BONE MINERAL DENSITY PATIENT INSTRUCTIONS Bone mineral density testing measures the amount of calcium in certain parts of your bones. This information determines how strong your bones are. The test is used to detect osteoporosis, a disease in which the bone's mineral content and density are low, increasing a person's risk of fractures. Thelumbar spine (lower back) and the hip are the skeletal sites usually examined. For the test, remember that: 1. You cannot take this test if you are . 2. Eat a normal diet on the day of the test. 3. Take your medications as you normally would. 4. DO NOT take calcium supplements (such as Tums) for 24 hours before the test. 5. On the day of the test, leave valuables (jewelry or credit cards) at home. 6. The test should be performed prior to oral, rectal or IV contrast studies, or at least 7 days after any of these studies. For the test, you may be asked to wear a hospital gown. You will lie on your back, on a padded table, in a comfortable position. Generally, you can resume your usual activities immediately. documented in this encounterOur [facility]01-14-2025 NoteHNO ID: [id number] Author: SHARONA BETTENCOURT PA-C Service: ? Author Type: Physician Clinical Nurse Manager Type: Progress Notes Filed: 04/15/2024 14:14 Note Text: Marci Marie is a 84 year old female here for a Medicare wellness visit. Medicare Health Risk Assessment General Health fair Exercise: Minutes/Day no Exercise: Days/Week - Alcohol: Daily Use no Alcohol: Drinks/Day no Alcohol: 6 or more drinks no Feel off balance no Concerns: Teeth/Dentures no Concerns: Sexual function no Troubled by feelings no Frequency: Eating healthy diet Some days ADLs requiring help no Safety precautions in home/vehicle yes Smoke, vape, chews tobacco no Difficulty hearing yes Difficulty seeing No Current Providers Specialists: I have reviewed specialist-related care of the patient in the medical record. Medical/Family history review Reviewed and updated problem list, medical/surgical/family/social history, medications, and allergies. Opioid use review Opioid Medications (last 90 days) No data to display Anxiety/Depression screening PHQ-2 Score: 0 (Lower risk for depression) Recommendation: no further intervention at this time Cognitive screening Mini Cog Score: 5 Cognitive screening reviewed and No further action needed (score 3-5). Functional Observation Was the patient's Timed Up AND Go test unsteady or >= 12 seconds? No Advance Care Planning Surrogate decision maker and/or advance care plan documented Measurements BP 166/90 (BP Site: Left Arm, BP Position: Sitting, BP Cuff Size: Regular Adult) Pulse 85 Temp 36.2 ?C (97.1 ?F) Resp 18 Ht 163.5 cm (5' 4.37) Wt 98 kg (216 lb) LMP (LMP Unknown) SpO2 99% BMI 36.65 kg/m? Vision Screening: Follows with optometry/ophthalmology Assessment/Plan Medicare annual wellness visit, subsequent (Z00.00) - Counseled on healthy diet and regular exercise - Fall avoidance information provided - Personalized prevention plan provided Chief Complaint Patient presents with: Medicare Wellness Exam HPI Marci Marie is a 84 year old female who presents here today for extensive exam. Patient with hx of DM2, anxiety, hyperlipidemia, HTN, OAB, multiple thyroid nodules, GERD, and those as below. Patient reports painful ingrown toenail. Has appt with podiatry. But not until may. She is on cancellation list. States home BP and sugars have been elevated. Reports she has been consistent with her medications. Last 6 Encounter BP Readings: Date: BP: 04/15/2024 166/90 03/29/2024 154/85 12/21/2023 169/103 11/17/2023 155/76 10/01/2023 104/67[Sunny BP[ 08/29/2023 152/76 Past medical history, appointments, medications, allergies reviewed. Previous Medical History PAST MEDICAL HISTORY Diagnosis Date Acquired deformity of left toe 03/21/2021 second and third digits Adjustment disorder with depressed mood 01/19/2020 Aortic stenosis, mild 12/02/[address] 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 prior episode ([facility]) 01/19/2020 Diabetic eye exam ([facility]) 08/21/2016 Last Done: 08/09/2017 No Retinopathy Diaphragmatic hernia without mention of obstruction or gangrene Diastolic congestive heart failure ([facility]) 07/03/2022 Elevated alkaline phosphatase level 08/28/2018 Elevated serum GGT level 07/03/2017 Essential hypertension 07/13/2014 Foot callus 03/21/2021 SAMEER (generalized anxiety disorder) 09/05/2018 Gastroesophageal reflux disease with esophagitis 04/23/2015 Herpes zoster mild occasional neuralgia in left cervical area. Hiatal hernia History of colon polyps Mixed hyperlipidemia Morbid obesity with BMI of 40.0-44.9, adult ([facility]) 06/19/2016 Multiple thyroid nodules 03/24/2021 US 03/2021: Needs yearly f/u for 5 yrs OAB (overactive bladder) 10/10/2022 Osteopenia 04/24/2011; Start vitamin d 1,000/day and RE-CHECK 2013 Personal history of other malignant neoplasm of skin 02/26/2009 Schatzki's ring Sebaceous cyst 07/03/2017 lower anterior neck Skin cancer, basal cell 04/23/2015 nose Stricture and stenosis of esophagus egd/dilatation by Dr. Hollins; Tinnitus of both ears 12/26/2021 Due to hearing loss. Type 2 diabetes mellitus with proteinuria ([facility]) ([facility]) 07/07/2013 Uncontrolled type 2 diabetes mellitus with hyperglycemia ([facility]) 01/02/2020 Venous (peripheral) insufficiency 12/21/2015 Vitamin D deficiency 11/26/2015 Previous Surgical History PAST SURGICAL HISTORY Procedure Laterality Date 2D ECHO (EXEP) 12/02/2015 EF=59% mild LVH, mild MR,TR and 2D ECHO (EXEP) 02/13/2020 EF=65%, mild dilated LA, 1+ MR and CHOLECYSTECTOMY Cholecystectomy COLONOSCOPY 11/04/2018 (more content not included)...[facility] 04-15-2024 History of Present illness Narrative* Sharona Bettencourt PA-C - 04/15/2024 11:53 AM EST Images from the original note were not included. Marci Marie is a 84 year old female here for a Medicare wellness visit. Medicare Health Risk Assessment General Health fair Exercise: Minutes/Day no Exercise: Days/Week - Alcohol: Daily Use no Alcohol: Drinks/Day no Alcohol: 6 or more drinks no Feel off balance no Concerns: Teeth/Dentures no Concerns: Sexual function no Troubled by feelings no Frequency: Eating healthy diet Some days ADLs requiring help no Safety precautions in home/vehicle yes Smoke, vape, chews tobacco no Difficulty hearing yes Difficulty seeing No Current Providers Specialists: I have reviewed specialist-related care of the patient in the medical record. Medical/Family history review Reviewed and updated problem list, medical/surgical/family/social history, medications, and allergies. Opioid use review Opioid Medications (last 90 days) No data to display Anxiety/Depression screening PHQ-2 Score: 0 (Lower risk for depression) Recommendation: no further intervention at this time Cognitive screening Mini Cog Score: 5 Cognitive screening reviewed and No further action needed (score 3-5). Functional Observation Was the patient's Timed Up & Go test unsteady or >= 12 seconds? No Advance Care Planning Surrogate decision maker and/or advance care plan documented Measurements BP 166/90 (BP Site: Left Arm, BP Position: Sitting, BP Cuff Size: Regular Adult) Pulse 85 Temp 36.2 C (97.1 F) Resp 18 Ht 163.5 cm (5' 4.37) Wt 98 kg (216 lb) LMP (LMP Unknown) SpO2 99% BMI 36.65 kg/m Vision Screening: Follows with optometry/ophthalmology Assessment/Plan Medicare annual wellness visit, subsequent (Z00.00) - Counseled on healthy diet and regular exercise - Fall avoidance information provided - Personalized prevention plan provided Chief Complaint Patient presents with: Medicare Wellness Exam HPI Marci Marie is a 84 year old female who presents here today for extensive exam. Patient with hx of DM2, anxiety, hyperlipidemia, HTN, OAB, multiple thyroid nodules, GERD, and those as below. Patient reports painful ingrown toenail. Has appt with podiatry. But not until may. She is on cancellation list. States home BP and sugars have been elevated. Reports she has been consistent with her medications. Last 6 Encounter BP Readings: Date: BP: 04/15/2024 166/90 03/29/2024 154/85 12/21/2023 169/103 11/17/2023 155/76 10/01/2023 104/67[Sunny BP[ 08/29/2023 152/76 Past medical history, appointments, medications, allergies reviewed. Previous Medical History PAST MEDICAL HISTORY Diagnosis Date Acquired deformity of left toe 03/21/2021 second and third digits Adjustment disorder with depressed mood 01/19/2020 Aortic stenosis, mild 12/02/[address] 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 prior episode ([facility]) 01/19/2020 Diabetic eye exam ([facility]) 08/21/2016 Last Done: 08/09/2017 No Retinopathy Diaphragmatic hernia without mention of obstruction or gangrene Diastolic congestive heart failure ([facility]) 07/03/2022 Elevated alkaline phosphatase level 08/28/2018 Elevated serum GGT level 07/03/2017 Essential hypertension 07/13/2014 Foot callus 03/21/2021 SAMEER (generalized anxiety disorder) 09/05/2018 Gastroesophageal reflux disease with esophagitis 04/23/2015 Herpes zoster mild occasional neuralgia in left cervical area. Hiatal hernia History of colon polyps Mixed hyperlipidemia Morbid obesity with BMI of 40.0-44.9, adult ([facility]) 06/19/2016 Multiple thyroid nodules 03/24/2021 US 03/2021: Needs yearly f/u for 5 yrs OAB (overactive bladder) 10/10/2022 Osteopenia 04/24/2011; Start vitamin d 1,000/day and RE-CHECK 2013 Personal history of other malignant neoplasm of skin 02/26/2009 Schatzki's ring Sebaceous cyst 07/03/2017 lower anterior neck Skin cancer, basal cell 04/23/2015 nose Stricture and stenosis of esophagus egd/dilatation by Dr. Hollins; Tinnitus of both ears 12/26/2021 Due to hearing loss. 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 Dr. Filemon Galvan. COLONOSCOPY SCRN NOT HIGH RISK 06/10/2003 upper and lower EGD 08/17/2009 Dr. Theo Hollins EGD DILATION 11/04/2018 Schatzi's Ring, mild reactive gastropathy. Dr. Filemon Galvan. ESOPHAGOGASTRODUODENOSCOPY TRANSORAL DIAGNOSTIC 06/2003 EGD EXERCISE ECG STRESS TEST 03/02/2020 negative NOSE SURGERY HX 2006 Nasal fracture repair REVISE MEDIAN N/CARPAL TUNNEL SURG Right 09/14/2022 TONSILLECTOMY AND ADENOIDECTOMY HX WRIST SURGERY HX 12/1988 Broken Left wrist surgery at [facility] - Dr. Delgado Family History FAMILY HISTORY Problem Relation Age of Onset Allergies Mother Heart Mother Asthma Mother Alzheimer's Disease Father Heart disease Father Hypertension Father Hypertension Maternal Grandmother DVT Maternal Grandmother Stroke Paternal Grandmother Stroke Paternal Grandfather Hypertension Brother Diabetes Brother Patient Allergies ALLERGIES Allergen Reactions Codeine Rash Penicillins Rash Pioglitazone Other: See Comments Increased leg edema and CHF symptoms Prednisone Rash Acetaminophen Other: See Comments Niacin Unknown Celebrex [Celecoxib] Unknown Niacin Rash Sulfa (Sulfonamide * Rash Current Medications Current Outpatient Medications on File Prior to Visit Medication Sig glimepiride (AMARYL) 2 mg tablet Take 1 tablet by mouth daily with dinner. metFORMIN (GLUCOPHAGE) 500 mg tablet Take by mouth. take 2 tabs w/breakfast;1 tab with lunch and TWO tabs w/ dinner amLODIPine (NORVASC) 2.5 mg tablet Take 1 tablet by mouth once daily. furosemide (LASIX) 40 mg tablet Take 1 tablet by mouth as needed. hydroCHLOROthiazide 25 mg tablet Take 1 tablet by mouth once daily. lisinopril (ZESTRIL) 40 mg tablet Take 1 tablet by mouth two times a day. nitroglycerin sublingual (NITROQUICK) 0.4 mg SL tablet Dissolve 1 tablet under the tongue as needed. FOR CHEST PAIN. IF NO RELIEF CALL 911 carvedilol (COREG) 3.125 mg tablet Take 1 tablet by mouth two times a day with meals. SITagliptin phosphate (JANUVIA) 100 mg tablet Take 1 tablet by mouth once daily. Blood-Glucose Meter,Continuous (FREESTYLE KIRK 3 READER) [facility] [place] Check blood sugars 3-4 times a day Dx: E11.65 no insulin Blood-Glucose Sensor (FREESTYLE KIRK 3 SENSOR) em Apply a new sensor once every 2 weeks. Check blood sugars 3-4 times a day Dx: E11.65 no insulin Cholecalciferol, Vitamin D3, 2,000 unit cap Take 3 capsules by mouth once daily. oxybutynin (DITROPAN) 5 mg tablet Take 0.5 tablets by mouth twice daily. No current facility-administered medications on file prior to visit. Social History Social History Tobacco Use Smoking status: Never Smokeless tobacco: Never Tobacco comments: 2nd hand Vaping Use Vaping status: Never Used Substance Use Topics Alcohol use: No Drug use: No Review of Symptoms REVIEW OF SYSTEMS GENERAL: No weight loss, malaise or fevers NECK: Negative for lumps, goiter, pain and significant neck swelling RESPIRATORY: Negative for cough, hemoptysis, wheezing, COPD, dyspnea or shortness of breath CARDIOVASCULAR: Negative for chest pain, leg swelling, CHF or palpitations : +urge incontinence SCRIPT EDITOR: frequent yeast at times HEMATOLOGY/LYMPHOLOGY: Negative for prolonged bleeding, bruising easily or swollen nodes ENDOCRINE: Negative for cold or heat intolerance, polyuria, polydipsia and goiter NEURO: No history of headaches, syncope, paralysis, seizures or tremors EXAM: BP 166/90 (BP Site: Left Arm, BP Position: Sitting, BP Cuff Size: Regular Adult) Pulse 85 Temp 36.2 C (97.1 F) Resp 18 Ht 163.5 cm (5' 4.37) Wt 98 kg (216 lb) LMP (LMP Unknown) SpO2 99% BMI 36.65 kg/m General Appearance: Well appearing, alert, in no acute distress, well-hydrated, well nourished. andObese. Neck: Supple, no adenopathy; thyroid symmetric, normal size, no bruits. Lungs: Lungs clear to auscultation. No wheezing, rhonchi, rales.. Heart: RRR without murmur, gallop, or rubs. No ectopy. Extremities: No deformities, edema, skin discoloration, clubbing or cyanosis. Good capillary refill. . Peripheral Pulses: Normal. Neurologic: Gait normal. Reflexes normal and symmetric. Sensation grossly intact.. Feet:Shoes and socks removed, normal distal pulses, sensitive to 10 gm monofilament, vibratory perception normal, nails notable for Crumbly, Deformed, Hypertrophic, or Yellowish, and ingrowing toenail with erythema on R big toe. Health Maintenance List Shingrix Vaccine(1 of 2) Never done RSV Vaccine(1 - 1-dose 75+ series) Never done Dilated Retinal Exam due on 08/09/2018 LDL Cholesterol due on 04/11/2023 Diabetic Foot Exam due on 10/11/2023 HbA1C due on 11/11/2023 Depression Screening due on 04/15/2025 DTaP,Tdap,Td Vaccine(5 - Td or Tdap) due on 12/27/2025 Bone Density Screening Completed Influenza Vaccine Completed Covid-19 Vaccine Completed Pneumococcal Vaccine: 50+ Completed HPV Vaccine Aged Out Urine Albumin:Creatinine Ratio Discontinued Colorectal Cancer Screening Discontinued Advance Directive Discussion Discontinued Data reviewed N/a ASSESSMENT/PLAN: 1. Medicare annual wellness visit, subsequent - ICD9: V70.0, ICD10: Z00.00 (primary diagnosis) - Counseled on healthy diet and regular exercise 2. Advanced care planning/counseling discussion - ICD9: V65.49, ICD10: Z71.89 Patient to bring copies 3. Uncontrolled type 2 diabetes mellitus with hyperglycemia (HCC) - ICD9: 250.02, ICD10: E11.65 Await labs 4. 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 Mixed hyperlipidemia - ICD9: 272.2, ICD10: E78.2 - Control undetermined, due for labs - Continue current medications - Counseled on healthy diet and regular exercise 6. Essential hypertension - ICD9: 401.9, ICD10: I10 - Uncontrolled - Continue current medications - Increase amlodipine - Recommend home blood pressure monitoring, to bring results to next visit - Encouraged sodium restriction, DASH or Mediterranean diet - Recommend regular aerobic exercise - AMLODIPINE 5 MG TABLET 7. Screening for depression - ICD9: V79.0, ICD10: Z13.31 - DEPRESSION SCREENING 8. Multiple thyroid nodules - ICD9: 241.1, ICD10: E04.2 Check: - US THYROID/PARATHYROID 9. Gastroesophageal reflux disease with esophagitis without hemorrhage - ICD9: 530.81, 530.10, ICD10: K21.00 chronic 10. OAB (overactive bladder) - ICD9: 596.51, ICD10: N32.81 chronic 11. 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 SAMEER (generalized anxiety disorder) - ICD9: 300.02, ICD10: F41.1 stable 13. Adjustment disorder with depressed mood - ICD9: 309.0, ICD10: F43.21 stable 14. Medication management - ICD9: V58.69, ICD10: Z79.899 15. Screening for colon cancer - ICD9: V76.51, ICD10: Z12.11 - CONSULT TO GASTROENTEROLOGY 16. History of colonic polyps - ICD9: V12.72, ICD10: Z86.0100 - CONSULT TO GASTROENTEROLOGY 17. Dysphagia, unspecified type - ICD9: 787.20, ICD10: R13.10 - CONSULT TO GASTROENTEROLOGY 18. Asymptomatic postmenopausal status - ICD9: V49.81, ICD10: Z78.0 - DXA-AXIAL SKELETON - DXA TRABECULAR BONE SCORE (TBS) 19. Urge incontinence - ICD9: 788.31, ICD10: N39.41 Set up with uro/foiling machine adjuster - CONSULT TO UROLOGY Follow up in 4 months routine. Follow up in 4 weeks for BP recheck. Sharona Bettencourt PA-C I spent a total of 45 minutes on the date of the service which included preparing to see the patient, [id number] patient care, completing clinical documentation, obtaining and/or reviewing separately obtained history, performing a medically appropriate examination, counseling and educating the pat ient/family/caregiver, ordering medications, tests, or procedures, and communicating results to thepatient/family/caregiver. documented in this encounterOur [facility]12-29-2024 NoteHNO ID: [id number] Author: KIM ROB PA-C Service: ? Author Type: Physician Clinical Nurse Manager Type: Progress Notes Filed: 03/30/2024 08:51 Note Text: This note was created using [employer]. Subjective Marci Marie is a 84 year old female. Patient is an 84-year-old female who complains of thick vaginal discharge that she has been experiencing for the past several days. Patient also reports vaginal itching. Patient denies dysuria or hematuria as well as abnormal vaginal bleeding. Patient states that she does have a history of urinary incontinence which is unchanged. Patient is diabetic and reports that she frequently develops vaginal yeast infections and that her current symptoms are consistent with same. Patient reports that she has not completed recent antibiotic therapy. Vaginal Problem Review of Systems Genitourinary: Positive for vaginal discharge. All other systems reviewed and are negative. Objective BP 154/85 Pulse 85 Temp 36.3 ?C (97.4 ?F) Resp 24 Wt 99 kg (218 lb 4.1 oz) LMP (LMP Unknown) SpO2 96% BMI 35.23 kg/m? Physical Exam Vitals and nursing note reviewed. Constitutional: Appearance: Normal appearance. She is normal weight. HENT: Head: Normocephalic and atraumatic. Right Ear: External ear normal. Left Ear: External ear normal. Nose: Nose normal. Mouth/Throat: Mouth: Mucous membranes are moist. Pharynx: Oropharynx is clear. Eyes: Extraocular Movements: Extraocular movements intact. Conjunctiva/sclera: Conjunctivae normal. Pupils: Pupils are equal, round, and reactive to light. Cardiovascular: Rate and Rhythm: Normal rate. Pulses: Normal pulses. Heart sounds: Normal heart sounds. Pulmonary: Effort: Pulmonary effort is normal. Breath sounds: Normal breath sounds. Abdominal: General: Abdomen is flat. Palpations: Abdomen is soft. Musculoskeletal: Cervical back: Normal range of motion and neck supple. Skin: General: Skin is warm and dry. Capillary Refill: Capillary refill takes less than 2 seconds. Neurological: General: No focal deficit present. Mental Status: She is alert and oriented to person, place, and time. Psychiatric: Mood and Affect: Mood normal. Behavior: Behavior normal. Thought Content: Thought content normal. Judgment: Judgment normal. Assessment and Plan Physical exam findings as noted above. Patient did perform a self swab and BV/David NAAT was ordered. Urinalysis is negative for leukocyte esterase and trace blood is noted. Patient was informed of glucose and ketones that were noted on urinalysis. Given the patient's history and clinical presentation, she was provided with a prescription for Diflucan 150 mg. Patient reports that she has not previously been evaluated by urologist for her chronic enuresis and she is requesting a referral for same. Consult order was placed with [facility] Urology patient will be scheduled for an appointment for same. Additional supportive care was discussed with the patient and she expresses good understanding of same. CLINICAL IMPRESSION: Vaginal Candidiasis; Chronic Urinary Incontinence ASSESSMENT/PLAN: 1. Urgency incontinence - ICD9: 788.31, ICD10: N39.41 (primary diagnosis) - UA DIP, URINE (POC) - URINE CULTURE - CONSULT TO UROLOGY 2. Vaginal candidiasis - ICD9: 112.1, ICD10: B37.31 - FLUCONAZOLE 150 MG TABLET - BACTERIAL VAGINOSIS NAAT - DAVID/TRICHOMONAS NAAT 3. Urethral irritation - ICD9: 599.9, ICD10: N36.8 PATRIZIA [facility]12-29-2024 History of Present illness Narrative* Kim Rob PA-C - 03/30/2024 8:44 AM EST This note was created using [employer]. Subjective Marci Marie is a 84 year old female. Patient is an 84-year-old female who complains of thick vaginal discharge that she has been experiencing for the past several days. Patient also reports vaginal itching. Patient denies dysuria or hematuria as well as abnormal vaginal bleeding. Patient states that she does have a history of urinary incontinence which is unchanged. Patient is diabetic and reports that she frequently develops vaginal yeast infections and that her current symptoms are consistent with same. Patient reports that she has not completed recent antibiotic therapy. Vaginal Problem Review of Systems Genitourinary: Positive for vaginal discharge. All other systems reviewed and are negative. Objective BP 154/85 Pulse 85 Temp 36.3 C (97.4 F) Resp 24 Wt 99 kg (218 lb 4.1 oz) LMP (LMP Unknown) SpO2 96% BMI 35.23 kg/m Physical Exam Vitals and nursing note reviewed. Constitutional: Appearance: Normal appearance. She is normal weight. HENT: Head: Normocephalic and atraumatic. Right Ear: External ear normal. Left Ear: External ear normal. Nose: Nose normal. Mouth/Throat: Mouth: Mucous membranes are moist. Pharynx: Oropharynx is clear. Eyes: Extraocular Movements: Extraocular movements intact. Conjunctiva/sclera: Conjunctivae normal. Pupils: Pupils are equal, round, and reactive to light. Cardiovascular: Rate and Rhythm: Normal rate. Pulses: Normal pulses. Heart sounds: Normal heart sounds. Pulmonary: Effort: Pulmonary effort is normal. Breath sounds: Normal breath sounds. Abdominal: General: Abdomen is flat. Palpations: Abdomen is soft. Musculoskeletal: Cervical back: Normal range of motion and neck supple. Skin: General: Skin is warm and dry. Capillary Refill: Capillary refill takes less than 2 seconds. Neurological: General: No focal deficit present. Mental Status: She is alert and oriented to person, place, and time. Psychiatric: Mood and Affect: Mood normal. Behavior: Behavior normal. Thought Content: Thought content normal. Judgment: Judgment normal. Assessment and Plan Physical exam findings as noted above. Patient did perform a self swab and BV/David NAAT was ordered. Urinalysis is negative for leukocyte esterase and trace blood is noted. Patient was informed ofglucose and ketones that were noted on urinalysis. Given the patient's history and clinical presentation, she was provided with a prescription for Diflucan 150 mg. Patient reports that she has not previously been evaluated by urologist for her chronic enuresis and she is requesting a referral for same. Consult order was placed with [facility] Urology patient will be scheduled for an appointment for same. Additional supportive care was discussed with the patient and she expresses good understanding of s roxanne. CLINICAL IMPRESSION: Vaginal Candidiasis; Chronic Urinary Incontinence ASSESSMENT/PLAN: 1. Urgency incontinence - ICD9: 788.31, ICD10: N39.41 (primary diagnosis) - UA DIP, URINE (POC) - URINE CULTURE - CONSULT TO UROLOGY 2. Vaginal candidiasis - ICD9: 112.1, ICD10: B37.31 - FLUCONAZOLE 150 MG TABLET - BACTERIAL VAGINOSIS NAAT - DAVID/TRICHOMONAS NAAT 3. Urethral irritation - ICD9: 599.9, ICD10: N36.8 Kim Rob PA-C [facility] Telephone encounter Note * Telephone Encounter - Darcie Pichardo LPN - 02/19/2024 3:33 PM EST Spoke with pt and apt booked. She will get labs done prior to her apt. Darcie Pichardo LPN [facility]11-19-2024 Miscellaneous Notes* Telephone Encounter - Darcie Pichardo LPN - 02/19/2024 3:33 PM EST Spoke with pt and apt booked. She will get labs done prior to her apt. Darcie Pichardo LPN * Telephone Encounter - Arturo Amaya MD - 02/19/2024 3:07 PM EST Patient needs medicare wellness scheduled in April 2024. Labs placed. The following approved medication requests have been transmitted electronically. Requested Prescriptions Signed Prescriptions Disp Refills glimepiride (AMARYL) 2 mg tablet 90 tablet 0 Sig: Take 1 tablet by mouth daily with dinner. Authorizing Provider: ARTURO AMAYA metFORMIN (GLUCOPHAGE) 500 mg tablet 150 tablet 2 Sig: Take by mouth. take 2 tabs w/breakfast;1 tab with lunch and TWO tabs w/ dinner Authorizing Provider: ARTURO AMAYA MD * Telephone Encounter - Darcie Pichardo LPN - 02/19/2024 1:57 PM EST The patient has been identified by name and date of : Yes Caregiver verified no other encounters exist for this prescription request: Yes Caregiver confirmed with patient/requestor that no other refills are due, in the near future, with this provider at this time: Yes The last office visit in the department: 10/01/2023 Does the patient have a future office visit with this provider/department: No Visit date not found Requested Prescriptions Pending Prescriptions Disp Refills glimepiride (AMARYL) 2 mg tablet 90 tablet 1 Sig: Take 1 tablet by mouth daily with dinner. metFORMIN (GLUCOPHAGE) 500 mg tablet 150 tablet 5 Sig: Take by mouth. take 2 tabs w/breakfast;1 tab with lunch and TWO tabs w/ dinner Darcie Pichardo LPN February 19, 2024 1:59 PM documented in [facility] encounterOur [facility] Telephone encounter Note * Telephone Encounter - Arturo Amaya MD - 02/19/2024 3:07 PM EST Patient needs medicare wellness scheduled in April 2024. Labs placed. The following approved medication requests have been transmitted electronically. Requested Prescriptions Signed Prescriptions Disp Refills glimepiride (AMARYL) 2 mg tablet 90 tablet 0 Sig: Take 1 tablet by mouth daily with dinner. Authorizing Provider: ARTURO AMAYA metFORMIN (GLUCOPHAGE) 500 mg tablet 150 tablet 2 Sig: Take by mouth. take 2 tabs w/breakfast;1 tab with lunch and TWO tabs w/ dinner Authorizing Provider: ARTURO AMAYA MD [facility]11-19-[facility]24 Telephone encounter Note* Telephone Encounter - Darcie Pichardo LPN - 02/19/2024 1:57 PM EST The patient has been identified by name and date of : Yes Caregiver verified no other encounters exist for this prescription request: Yes Caregiver confirmed with patient/requestor that no other refills are due, in the near future, with this provider at this time: Yes The last office visit in the department: 10/01/2023 Does the patient have a future office visit with this provider/department: No Visit date not found Requested Prescriptions Pending Prescriptions Disp Refills glimepiride (AMARYL) 2 mg tablet 90 tablet 1 Sig: Take 1 tablet by mouth daily with dinner. metFORMIN (GLUCOPHAGE) 500 mg tablet 150 tablet 5 Sig: Take by mouth. take 2 tabs w/breakfast;1 tab with lunch and TWO tabs w/ dinner Darcie Pichardo LPN February 19, 2024 1:59 PM [facility]11-04-[facility]24 NoteHNO ID: [id number] Author: ?, ?, ? Service: ? Author Type: ? Type: Progress Notes Filed: 02/04/2024 09:38 Note Text: Marci Marie is identified through a medication adherence outreach initiative based on pharmacy claims data from [employer] (insurer) for Non-insulin DM medication(s). Patient is reviewed 02/04/24 due to medication adherence concerns with the following medications (name, strength, sig): Januvia 100mg every day . Per data/report, last fill date and days supply: Due 01/20/24 Per reconcile dispense, last fill date and days supply: Filled 11/20/23 for 30 days Contacted patient: No answer; left generic VM Outcome of review/outreach: (choose outcome source and status) - [facility] History of Present illness Narrative* Maude Aguilar - 02/04/2024 9:34 AM EST Marci Marie is identified through a medication adherence outreach initiative based on pharmacy claims data from [employer] (insurer) for Non-insulin DM medication(s). Patient is reviewed 02/04/24 due to medication adherence concerns with the following medications (name, strength, sig): Januvia 100mg every day . Per data/report, last fill date and days supply: Due 01/20/24 Per reconcile dispense, last fill date and days supply: Filled 11/20/23 for 30 days Contacted patient: No answer; left generic VM Outcome of review/outreach: (choose outcome source and status) - LVM for PT Maude Aguilar documented in this encounterOur [facility]11-04-2024 NotePatient Outreach (PHPOHE) MARCI MARIE ([id number]) 1940 F DEF Date Time Provider Department 02/04/24 ARTURO AMAYA PHPOHE During your visit today, we recorded the following information about you: Maude Aguilar 02/04/2024 9:38 AM Signed Marci Marie is identified through a medication adherence outreach initiative based on pharmacy claims data from [employer] (insurer) for Non-insulin DM medication(s). Patient is reviewed 02/04/24 due to medication adherence concerns with the following medications (name, strength, sig): Januvia 100mg every day . Per data/report, last fill date and days supply: Due 01/20/24 Per reconcile dispense, last fill date and days supply: Filled 11/20/23 for 30 days Contacted patient: No answer; left generic VM Outcome of review/outreach: (choose outcome source and status) - LVM for PT Maude Aguilar Allergies As of Date: 02/04/2024 Noted Allergy Reaction CODEINE 10/02/2003 2 - Rash PENICILLINS 10/02/2003 2 - Rash PIOGLITAZONE 07/03/2022 14 - Other: See Comments Comments: Increased leg edema and CHF symptoms PREDNISONE 10/02/2003 2 - Rash ACETAMINOPHEN 10/27/2021 14 - Other: See Comments NIACIN 05/01/2021 16 - Unknown CELEBREX (CELECOXIB) 11/26/2004 16 - Unknown NIACIN 10/02/2003 2 - Rash SULFA (SULFONAMIDE ANTIBIOTICS) 10/02/2003 2 - Rash Date Reviewed: 12/21/2023 Reviewed by: Shasha Jane MA - Fully Assessed Reason for Visit: Allied Health Visit [5] Cmt: Medication Adherence Outreach Prescriptions as of 02/04/2024 - amLODIPine (NORVASC) 2.5 mg tablet Take 1 tablet by mouth once daily. - furosemide (LASIX) 40 mg tablet Take 1 tablet by mouth as needed. - glimepiride (AMARYL) 2 mg tablet Take 1 tablet by mouth daily with dinner. - hydroCHLOROthiazide 25 mg tablet Take 1 tablet by mouth once daily. - lisinopril (ZESTRIL) 40 mg tablet Take 1 tablet by mouth two times a day. - metFORMIN (GLUCOPHAGE) 500 mg tablet Take by mouth. take 2 tabs w/breakfast;1 tab with lunch and TWO tabs w/ dinner - nitroglycerin sublingual (NITROQUICK) 0.4 mg SL tablet Dissolve 1 tablet under the tongue as needed. FOR CHEST PAIN. IF NO RELIEF CALL 911 - carvedilol (COREG) 3.125 mg tablet Take 1 tablet by mouth two times a day with meals. - SITagliptin phosphate (JANUVIA) 100 mg tablet Take 1 tablet by mouth once daily. - Blood-Glucose Meter,Continuous (FREESTYLE KIRK 3 READER) [facility] [place] Check blood sugars 3-4 times a day Dx: E11.65 no insulin - Blood-Glucose Sensor (FREESTYLE KIRK 3 SENSOR) em Apply a new sensor once every 2 weeks. Check blood sugars 3-4 times a day Dx: E11.65 no insulin - oxybutynin (DITROPAN) 5 mg tablet Take 0.5 tablets by mouth twice daily. - blood sugar diagnostic (BLOOD GLUCOSE TEST) test strip Test blood sugar(s) 2 times daily. Dx: Type 2 DM - Uncontrolled Insulin: No - aspirin, enteric coated (ASPIRIN, ENTERIC COATED) 81 mg EC tablet Take 81 mg by mouth once daily. Take one tablet daily - Lancets lancets Test blood sugar(s) 2 times daily. Dx: Type 2 DM - Uncontrolled E11. Insulin: No - Cholecalciferol, Vitamin D3, 2,000 unit cap Take 3 capsules by mouth once daily. - Blood Pressure Cuff - Home Use BLOOD PRESSURE CUFF FOR HOME USE. 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] Mixed Hyperlipidemia [E78.2] 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*07/01/2007 Actinic Keratosis [L57.0] 02/26/2009 06/28/2009 Other Seborrheic Keratosis [L82.1] 02/26/2009 06/28/2009 Sun-Damaged Skin [L57.8] 02/26/2009 06/28/2009 Solar Lentigo [L81.4] 02/26/2009 06/28/2009 Scar Condition and Fibrosis of Skin [L90.5] 02/26/2009 06/28/2009 Personal history of other malignant neoplasm of*02/26/2009 Capillary Angioma [I78.1] 02/26/2009 06/28/2009 Xerosis Cutis [L85.3] 02/26/2009 06/28/2009 Venous Stasis [I87.8] 02/26/2009 06/28/2009 Osteopenia [M85.80] 04/24/2011 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)*07/07/2013 Essential hypertension [I10] 07/13/2014 Routine gynecological examination [Z01.419] 07/21/2014 Gastroesophageal reflux disease with esophagiti*04/23/2015 Skin cancer, basal cell [C44.91] 04/23/2015 Bilateral leg edema [R60.0] 05/31/2015 Vitamin D deficiency [E55.9] 11/26/2015 Aortic stenosis, mild [I35.0] 12/02/2015 Venous (peripheral) insufficiency [I87.2] 12/21/2015 Morbid obesity with BMI of 40.0-44.9, adult (HC*06/19/2016 08/20/2023 Diabetic eye exam (HCC) [Z01.00, E11.9] 08/21/2016 Corns and callus [L84] 09/18/2016 Screening for colon cancer [Z12.11] 07/03/2017 Sebaceous cyst [L72.3] 07/03/2017 Elevated serum GGT level [R74.8] 07/03/2017 Microscopic hematuria [R31.29] 08/28/2018 Elevated alkaline phosphatase level [R74.8] 08/28/2018 Uncon (more content not included)...[facility] NoteHNO ID: [id number] Author: PORTILLO PINEDA RN Service: ? Author Type: Registered Nurse Type: Progress Notes Filed: 01/22/2024 15:56 Note Text: ED Follow-Up Note Provider Action / FYI: 2nd ER outreach to pt Outreach was attempted with this patient via telephone regarding the patient's recent [facility] ED visit. Patient did not answer at time of call. A voicemail message was left. Will re-attempt call.next week Call completed by: RN Patient seen in ED: Out of Network ED Contact made with Patient: No, left message. Portillo Pineda RN January 18, 2024 4:04 [facility]10-18-2024 History of Present illness Narrative* Portillo Pineda RN - 01/18/2024 4:03 PM EDT ED Follow-Up Note Provider Action / FYI: 2nd ER outreach to pt Outreach was attempted with this patient via telephone regarding the patient's recent [facility] ED visit. Patient did not answer at time of call. A voicemail message was left. Will re-attempt call.next week Call completed by: RN Patient seen in ED: Out of Network ED Contact made with Patient: No, left message. Portillo Pineda RN January 18, 2024 4:04 PM * Portillo Pineda RN - 01/18/2024 11:53 AM EDT ED Follow-Up Note Provider Action / FYI: Outreach was attempted with this patient via telephone regarding the patient's recent [facility] ED visit. Patient did not answer at time of call. A voicemail message was left. Will re-attempt call.later today Call completed by: RN Patient seen in ED: Out of Network ED Contact made with Patient: No, left message. Portillo Pineda RN January 18, 2024 12:01 PM documented in this encounterOur [facility]10-[facility]24 NoteHNO ID: [id number] Author: PORTILLO PINEDA RN Service: ? Author Type: Registered Nurse Type: Progress Notes Filed: 01/22/2024 15:56 Note Text: ED Follow-Up Note Provider Action / FYI: Outreach was attempted with this patient via telephone regarding the patient's recent [facility] ED visit. Patient did not answer at time of call. A voicemail message was left. Will re-attempt call.later today Call completed by: RN Patient seen in ED: Out of Network ED Contact made with Patient: No, left message. Portillo Pineda RN January 18, 2024 12:01 [facility]10-18-[facility]24 NotePatient Outreach ([facility]) MARCI MARIE ([id number]) 1940 F DEF Date Time Provider Department 01/18/24 PORTILLO PINEDA During your visit today, we recorded the following information about you: Portillo Pineda RN 01/22/2024 3:56 PM Signed ED Follow-Up Note Provider Action / FYI: Outreach was attempted with this patient via telephone regarding the patient's recent [facility] ED visit. Patient did not answer at time of call. A voicemail message was left. Will re-attempt call.later today Call completed by: RN Patient seen in ED: Out of Network ED Contact made with Patient: No, left message. Portillo Pineda RN January 18, 2024 12:01 PM Portillo Pineda RN 01/22/2024 3:56 PM Signed ED Follow-Up Note Provider Action / FYI: 2nd ER outreach to pt Outreach was attempted with this patient via telephone regarding the patient's recent [facility] ED visit. Patient did not answer at time of call. A voicemail message was left. Will re-attempt call.next week Call completed by: RN Patient seen in ED: Out of Network ED Contact made with Patient: No, left message. Portillo Pineda RN January 18, 2024 4:04 PM Allergies As of Date: 01/18/2024 Noted Allergy Reaction CODEINE 10/02/2003 2 - Rash PENICILLINS 10/02/2003 2 - Rash PIOGLITAZONE 07/03/2022 14 - Other: See Comments Comments: Increased leg edema and CHF symptoms PREDNISONE 10/02/2003 2 - Rash ACETAMINOPHEN 10/27/2021 14 - Other: See Comments NIACIN 05/01/2021 16 - Unknown CELEBREX (CELECOXIB) 11/26/2004 16 - Unknown NIACIN 10/02/2003 2 - Rash SULFA (SULFONAMIDE ANTIBIOTICS) 10/02/2003 2 - Rash Date Reviewed: 12/21/2023 Reviewed by: Shasha Jane MA - Fully Assessed Reason for Visit: ACM BINH RN [[id number]] Cmt: ER outreach follow up Prescriptions as of 01/22/2024 - amLODIPine (NORVASC) 2.5 mg tablet Take 1 tablet by mouth once daily. - furosemide (LASIX) 40 mg tablet Take 1 tablet by mouth as needed. - glimepiride (AMARYL) 2 mg tablet Take 1 tablet by mouth daily with dinner. - hydroCHLOROthiazide 25 mg tablet Take 1 tablet by mouth once daily. - lisinopril (ZESTRIL) 40 mg tablet Take 1 tablet by mouth two times a day. - metFORMIN (GLUCOPHAGE) 500 mg tablet Take by mouth. take 2 tabs w/breakfast;1 tab with lunch and TWO tabs w/ dinner - nitroglycerin sublingual (NITROQUICK) 0.4 mg SL tablet Dissolve 1 tablet under the tongue as needed. FOR CHEST PAIN. IF NO RELIEF CALL 911 - carvedilol (COREG) 3.125 mg tablet Take 1 tablet by mouth two times a day with meals. - SITagliptin phosphate (JANUVIA) 100 mg tablet Take 1 tablet by mouth once daily. - Blood-Glucose Meter,Continuous (FREESTYLE KIRK 3 READER) [facility] [place] Check blood sugars 3-4 times a day Dx: E11.65 no insulin - Blood-Glucose Sensor (FREESTYLE KIRK 3 SENSOR) em Apply a new sensor once every 2 weeks. Check blood sugars 3-4 times a day Dx: E11.65 no insulin - oxybutynin (DITROPAN) 5 mg tablet Take 0.5 tablets by mouth twice daily. - blood sugar diagnostic (BLOOD GLUCOSE TEST) test strip Test blood sugar(s) 2 times daily. Dx: Type 2 DM - Uncontrolled E11.65 Insulin: No - aspirin, enteric coated (ASPIRIN, ENTERIC COATED) 81 mg EC tablet Take 81 mg by mouth once daily. Take one tablet daily - Lancets lancets Test blood sugar(s) 2 times daily. Dx: Type 2 DM - Uncontrolled E11.65 Insulin: No - Cholecalciferol, Vitamin D3, 2,000 unit cap Take 3 capsules by mouth once daily. - Blood Pressure Cuff - Home Use BLOOD PRESSURE CUFF FOR HOME USE. DX: LABILE BLOOD PRESSURE Problem List As Of Date 01/18/2024 Noted Resolved Diaphragmatic hernia without mention of obstruc* Herpes zoster [B02.9] Stricture and Stenosis of Esophagus [K22.2] Mixed Hyperlipidemia [E78.2] 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*07/01/2007 Actinic Keratosis [L57.0] 02/26/2009 06/28/2009 Other Seborrheic Keratosis [L82.1] 02/26/2009 06/28/2009 Sun-Damaged Skin [L57.8] 02/26/2009 06/28/2009 Solar Lentigo [L81.4] 02/26/2009 06/28/2009 Scar Condition and Fibrosis of Skin [L90.5] 02/26/2009 06/28/2009 Personal history of other malignant neoplasm of*02/26/2009 Capillary Angioma [I78.1] 02/26/2009 06/28/2009 Xerosis Cutis [L85.3] 02/26/2009 06/28/2009 Venous Stasis [I87.8] 02/26/2009 06/28/2009 Osteopenia [M85.80] 04/24/2011 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)*07/07/2013 Essential hypertension [I10] 07/13/2014 Routine gynecological examination [Z01.419] 07/21/2014 Gastroesophageal reflux disease with esophagiti*04/23/2015 Skin cancer, basal cell [C44.91] 04/23/2015 Bilateral leg edema [R60.0] 05/31/2015 Vitamin D deficiency [E55.9] 11/26/2015 Aortic stenosis, mild [I35.0] 12/02/2015 Venous (peripheral) insufficiency [I87.2] 12/21/2015 Morbid obesity with BMI of 40.0-44.9, adult (HC*06/19/2016 08/20/2023 Diabetic eye exam (HCC) [Z01.00, E11.9] more content not included)... [place] [address]-20-2024 NoteHNO ID: [id number] Author: MONICA PARRISH APRN.DIESEL MAINTENANCE TECHNICIAN Service: ? Author Type: Nurse Practitioner Type: Progress Notes Filed: 12/21/2023 14:33 Note Text: Subjective Patient came in with complaints of tooth infection on the left upper jaw. Patient's had trouble with his teeth before. Patient says started a few days ago seems to be getting worse. Patient denies any fever nausea vomiting. The history is provided by the patient. No bilingual speech language pathologist was used. Dental Problem Review of Systems Constitutional: Negative. Skin: Negative. Objective Physical Exam Constitutional: Appearance: Normal appearance. HENT: Head: Comments: Does have mild swelling in the area marked above. No abscesses noted inside. Significant dental caries noted. Pulmonary: Effort: Pulmonary effort is normal. Neurological: Mental Status: She is alert. PAST MEDICAL HISTORY Diagnosis Date Acquired deformity of left toe 03/21/2021 second and third digits Adjustment disorder with depressed mood 01/19/2020 Aortic stenosis, mild 12/02/[address] 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 Hiatal hernia History of colon polyps Mixed hyperlipidemia Morbid obesity with BMI of 40.0-44.9, adult (HCC) 06/19/2016 Multiple thyroid nodules 03/24/2021 US 03/2021: Needs yearly f/u for 5 yrs OAB (overactive bladder) 10/10/2022 Osteopenia 04/24/2011; Start vitamin d 1,000/day and RE-CHECK 2013 Personal history of other malignant neoplasm of skin 02/26/2009 Schatzki's ring Sebaceous cyst 07/03/2017 lower anterior neck Skin cancer, basal cell 04/23/2015 nose Stricture and stenosis of esophagus egd/dilatation by Dr. Hollins; Tinnitus of both ears 12/26/2021 Due to hearing loss. 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) ([facility]) 07/07/2013 Uncontrolled type 2 diabetes mellitus with hyperglycemia (HCC) 01/02/2020 Venous (peripheral) insufficiency 12/21/2015 Vitamin D deficiency 11/26/2015 PAST SURGICAL HISTORY Procedure Laterality Date 2D ECHO (EXEP) 12/02/2015 EF=59% mild LVH, mild MR,TR and 2D ECHO (EXEP) 02/13/2020 EF=65%, mild dilated LA, 1+ MR and CHOLECYSTECTOMY Cholecystectomy COLONOSCOPY 11/04/2018 Sessile serrated polyp, Tubullovillous adenoma. Dr. Filemon Galvan. COLONOSCOPY SCRN NOT HIGH RISK 06/10/2003 upper and lower EGD 08/17/2009 Dr. Theo Hollins EGD DILATION 11/04/2018 Schatzi's Ring, mild reactive gastropathy. Dr. Filemon Galvan. ESOPHAGOGASTRODUODENOSCOPY TRANSORAL DIAGNOSTIC 06/2003 EGD EXERCISE ECG STRESS TEST 03/02/2020 negative NOSE SURGERY HX 2006 Nasal fracture repair REVISE MEDIAN N/CARPAL TUNNEL SURG Right 09/14/2022 TONSILLECTOMY AND ADENOIDECTOMY HX WRIST SURGERY HX 12/1988 Broken Left wrist surgery at [facility] - Dr. Delgado ALLERGIES Codeine, Penicillins, Pioglitazone, Prednisone, Acetaminophen, Niacin, Celebrex [Celecoxib], Niacin, and Sulfa (Sulfonamide Antibiotics) MEDICATIONS cephALEXin (KEFLEX) 500 mg capsule Take 1 capsule by mouth four times daily for 5 days. amLODIPine (NORVASC) 2.5 mg tablet Take 1 tablet by mouth once daily. furosemide (LASIX) 40 mg tablet Take 1 tablet by mouth as needed. glimepiride (AMARYL) 2 mg tablet Take 1 tablet by mouth daily with dinner. hydroCHLOROthiazide 25 mg tablet Take 1 tablet by mouth once daily. lisinopril (ZESTRIL) 40 mg tablet Take 1 tablet by mouth two times a day. metFORMIN (GLUCOPHAGE) 500 mg tablet Take by mouth. take 2 tabs w/breakfast;1 tab with lunch and TWO tabs w/ dinner nitroglycerin sublingual (NITROQUICK) 0.4 mg SL tablet Dissolve 1 tablet under the tongue as needed. FOR CHEST PAIN. IF NO RELIEF CALL 911 carvedilol (COREG) 3.125 mg tablet Take 1 tablet by mouth two times a day with meals. SITagliptin phosphate (JANUVIA) 100 mg tablet Take 1 tablet by mouth once daily. Blood-Glucose Meter,Continuous (FREESTYLE KIRK 3 READER) [facility] [place] blood sugars 3-4 times a day Dx: E11.65 no insulin Blood-Glucose Sensor (FREESTYLE KIRK 3 SENSOR) em Apply a new sensor once every 2 weeks. Check blood sugars 3-4 times a day (more content not included)... [facility]09-20-2024 History of Present illness Narrative* Monica Parrish APRN.DIESEL MAINTENANCE TECHNICIAN - 12/21/2023 2:28 PM EDT Images from the original note were not included. Subjective Patient came in with complaints of tooth infection on the left upper jaw. Patient's had trouble with his teeth before. Patient says started a few days ago seems to be getting worse. Patient denies any fever nausea vomiting. The history is provided by the patient. No bilingual speech language pathologist was used. Dental Problem Review of Systems Constitutional: Negative. Skin: Negative. Objective Physical Exam Constitutional: Appearance: Normal appearance. HENT: Head: Comments: Does have mild swelling in the area marked above. No abscesses noted inside. Significant dental caries noted. Pulmonary: Effort: Pulmonary effort is normal. Neurological: Mental Status: She is alert. PAST MEDICAL HISTORY Diagnosis Date Acquired deformity of left toe 03/21/2021 second and third digits Adjustment disorder with depressed mood 01/19/2020 Aortic stenosis, mild 12/02/[address] 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 Corns and callus 09/18/2016 Current severe episode of major depressive disorder with psychotic features without prior episode ([facility]) 01/19/2020 Diabetic eye exam ([facility]) 08/21/2016 Last Done: 08/09/2017 No Retinopathy Diaphragmatic hernia without mention of obstruction or gangrene Diastolic congestive heart failure ([facility]) 07/03/2022 Elevated alkaline phosphatase level 08/28/2018 Elevated serum GGT level 07/03/2017 Essential hypertension 07/13/2014 Foot callus 03/21/2021 SAMEER (generalized anxiety disorder) 09/05/2018 Gastroesophageal reflux disease with esophagitis 04/23/2015 Herpes zoster mild occasional neuralgia in left cervical area. Hiatal hernia History of colon polyps Mixed hyperlipidemia Morbid obesity with BMI of 40.0-44.9, adult ([facility]) 06/19/2016 Multiple thyroid nodules 03/24/2021 03/2021: Needs yearly f/u for 5 yrs OAB (overactive bladder) 10/10/2022 Osteopenia 04/24/2011; Start vitamin d 1,000/day and RE-CHECK 2013 Personal history of other malignant neoplasm of skin 02/26/2009 Schatzki's ring Sebaceous cyst 07/03/2017 lower anterior neck Skin cancer, basal cell 04/23/2015 nose Stricture and stenosis of esophagus egd/dilatation by Dr. Hollins; Tinnitus of both ears 12/26/2021 Due to hearing loss. Type 2 diabetes mellitus with proteinuria ([facility]) ([facility]) 07/07/2013 Uncontrolled type 2 diabetes mellitus with hyperglycemia ([facility]) 01/02/2020 Venous (peripheral) insufficiency 12/21/2015 Vitamin D deficiency 11/26/2015 PAST SURGICAL HISTORY Procedure Laterality Date 2D ECHO (EXEP) 12/02/2015 EF=59% mild LVH, mild MR,TR and 2D ECHO (EXEP) 02/13/2020 EF=65%, mild dilated LA, 1+ MR and CHOLECYSTECTOMY Cholecystectomy COLONOSCOPY 11/04/2018 Sessile serrated polyp, Tubullovillous adenoma. Dr. Filemon Galvan. COLONOSCOPY SCRN NOT HIGH RISK 06/10/2003 upper and lower EGD 08/17/2009 Dr. Theo Hollins EGD DILATION 11/04/2018 Schatzi's Ring, mild reactive gastropathy. Dr. Filemon Galvan. ESOPHAGOGASTRODUODENOSCOPY TRANSORAL DIAGNOSTIC 06/2003 EGD EXERCISE ECG STRESS TEST 03/02/2020 negative NOSE SURGERY HX 2006 Nasal fracture repair REVISE MEDIAN N/CARPAL TUNNEL SURG Right 09/14/2022 TONSILLECTOMY AND ADENOIDECTOMY HX WRIST SURGERY HX 12/1988 Broken Left wrist surgery at [facility] - Dr. Delgado ALLERGIES Codeine, Penicillins, Pioglitazone, Prednisone, Acetaminophen, Niacin, Celebrex [Celecoxib], Niacin, and Sulfa (Sulfonamide Antibiotics) MEDICATIONS cephALEXin (KEFLEX) 500 mg capsule Take 1 capsule by mouth four times daily for 5 days. amLODIPine (NORVASC) 2.5 mg tablet Take 1 tablet by mouth once daily. furosemide (LASIX) 40 mg tablet Take 1 tablet by mouth as needed. glimepiride (AMARYL) 2 mg tablet Take 1 tablet by mouth daily with dinner. hydroCHLOROthiazide 25 mg tablet Take 1 tablet by mouth once daily. lisinopril (ZESTRIL) 40 mg tablet Take 1 tablet by mouth two times a day. metFORMIN (GLUCOPHAGE) 500 mg tablet Take by mouth. take 2 tabs w/breakfast;1 tab with lunch and TWO tabs w/ dinner nitroglycerin sublingual (NITROQUICK) 0.4 mg SL tablet Dissolve 1 tablet under the tongue as needed. FOR CHEST PAIN. IF NO RELIEF CALL 911 carvedilol (COREG) 3.125 mg tablet Take 1 tablet by mouth two times a day with meals. SITagliptin phosphate (JANUVIA) 100 mg tablet Take 1 tablet by mouth once daily. Blood-Glucose Meter,Continuous (FREESTYLE KIRK 3 READER) [facility] [place] Check blood sugars 3-4 times a day Dx: E11.65 no insulin Blood-Glucose Sensor (FREESTYLE KIRK 3 SENSOR) em Apply a new sensor once every 2 weeks. Check blood sugars 3-4 times a day Dx: E11.65 no insulin oxybutynin (DITROPAN) 5 mg tablet Take 0.5 tablets by mouth twice daily. blood sugar diagnostic (BLOOD GLUCOSE TEST) test strip Test blood sugar(s) 2 times daily. Dx: Type 2 DM - Uncontrolled E11.65 Insulin: No (Patient not taking: Reported on 08/10/2023) aspirin, enteric coated (ASPIRIN, ENTERIC COATED) 81 mg EC tablet Take 81 mg by mouth once daily. Take one tablet daily Lancets lancets Test blood sugar(s) 2 times daily. Dx: Type 2 DM - Uncontrolled E11.65 Insulin: No (Patient not taking: Reported on 08/10/2023) Cholecalciferol, Vitamin D3, 2,000 unit cap Take 3 capsules by mouth once daily. Blood Pressure Cuff - Home Use BLOOD PRESSURE CUFF FOR HOME USE. DX: LABILE BLOOD PRESSURE (Patientnot taking: Reported on 08/10/2023) FAMILY HISTORY Problem Relation Age of Onset Allergies Mother Heart Mother Asthma Mother Alzheimer's Disease Father Heart disease Father Hypertension Father Hypertension Maternal Grandmother DVT Maternal Grandmother Stroke Paternal Grandmother Stroke Paternal Grandfather Hypertension Brother Diabetes Brother Social History Tobacco Use Smoking status: Never Smokeless tobacco: Never Tobacco comments: 2nd hand Vaping Use Vaping status: Never Used Substance Use Topics Alcohol use: No Drug use: No ASSESSMENT/PLAN: 1. Pain, dental - ICD9: 525.9, ICD10: K08.89 - CEPHALEXIN 500 MG CAPSULE Patient was educated about proper use of medication and supportive therapies. Patient was educated about red flag symptoms to watch for. Patient will watch for these and go to the ER if they occur. Patient will follow-up with her dentist. Patient was okay with this care plan. Monica Parrish APRN.RITA documented in this encounterOur [facility] NoteHNO ID: [id number] Author: ?, ?, ? Service: ? Author Type: ? Type: Progress Notes Filed: 11/19/2023 13:50 Note Text: Marci Marie is identified through a medication adherence outreach initiative based on pharmacy claims data from [employer] (insurer) for FARA medication(s) and Non-insulin DM medication(s). Patient is reviewed 11/19/23 due to medication adherence concerns with the following medications (name, strength, sig): Januvia 100mg 1 tab daily, Lisinopril 40mg 1 tab daily . Per data/report, last fill date and days supply: Januvia due 11/18, Lisinopril due 09/04 Per reconcile dispense, last fill date and days supply: Januvia 08/21/23 for 90 ds , Lisinopril no infor per [employer] portal 06/07/23 for 90 ds Per call to pharmacy, last picked up date and days supply: n/a Contacted patient: No answer; left generic VM Outcome of review/outreach: (choose outcome source and status) - Called pt had to [facility]. Per [facility] 10/16/23 Spoke with patient in regards to her Lisinopril 40 mg tablet States she still has medication left in her bottle. Believes this is due to her being in the hospital in July. Atiya Noyola [facility] History of Present illness Narrative* Atiya Noyola - 11/19/2023 1:43 PM EDT Marci Marie is identified through a medication adherence outreach initiative based on pharmacy claims data from [employer] (insurer) for FARA medication(s) and Non-insulin DM medication(s). Patient is reviewed 11/19/23 due to medication adherence concerns with the following medications (name, strength, sig): Januvia 100mg 1 tab daily, Lisinopril 40mg 1 tab daily . Per data/report, last fill date and days supply: Januvia due 11/18, Lisinopril due 09/04 Per reconcile dispense, last fill date and days supply: Januvia 08/21/23 for 90 ds , Lisinopril no infor per [facility] portal 06/07/23 for 90 ds Per call to pharmacy, last picked up date and days supply: n/a Contacted patient: No answer; left generic VM Outcome of review/outreach: (choose outcome source and status) - Called pt had to [facility]. Per [facility] 10/16/23 Spoke with patient in regards to her Lisinopril 40 mg tablet States she still has medication left in her bottle. Believes this is due to her being in the hospital in July. Atiya Noyola Visual Stylist documented in this encounterOur Lady Of Mercy [facility]08-19-2024 NotePatient Outreach (PHPOHE) FRANKMARCI Lamb ([id number]) 1940 F DEF Date Time Provider Department 11/19/23 ARTURO AMAYA During your visit today, we recorded the following information about you: Atiya Noyola 11/19/2023 1:50 PM Signed Marci Marie is identified through a medication adherence outreach initiative based on pharmacy claims data from [employer] (insurer) for FARA medication(s) and Non-insulin DM medication(s). Patient is reviewed 11/19/23 due to medication adherence concerns with the following medications (name, strength, sig): Januvia 100mg 1 tab daily, Lisinopril 40mg 1 tab daily . Per data/report, last fill date and days supply: Januvia due 11/18, Lisinopril due 09/04 Per reconcile dispense, last fill date and days supply: Januvia 08/21/23 for 90 ds , Lisinopril no infor per [facility] portal 06/07/23 for 90 ds Per call to pharmacy, last picked up date and days supply: n/a Contacted patient: No answer; left generic VM Outcome of review/outreach: (choose outcome source and status) - Called pt had to [facility]. Per Epic 10/16/23 Spoke with patient in regards to her Lisinopril 40 mg tablet States she still has medication left in her bottle. Believes this is due to her being in the hospital in July. Atiya Noyola Visual Stylist Allergies As of Date: 11/19/2023 Noted Allergy Reaction CODEINE 10/02/2003 2 - Rash PENICILLINS 10/02/2003 2 - Rash PIOGLITAZONE 07/03/2022 14 - Other: See Comments Comments: Increased leg edema and CHF symptoms PREDNISONE 10/02/2003 2 - Rash ACETAMINOPHEN 10/27/2021 14 - Other: See Comments NIACIN 05/01/2021 16 - Unknown CELEBREX (CELECOXIB) 11/26/2004 16 - Unknown NIACIN 10/02/2003 2 - Rash SULFA (SULFONAMIDE ANTIBIOTICS) 10/02/2003 2 - Rash Date Reviewed: 11/17/2023 Reviewed by: Shasha Jane MA - Fully Assessed Reason for Visit: Allied Health Visit [5] Cmt: Medication Adherence Outreach Prescriptions as of 11/19/2023 - doxycycline monohydrate 100 mg tablet Take 1 tablet by mouth two times a day for 7 days. - amLODIPine (NORVASC) 2.5 mg tablet Take 1 tablet by mouth once daily. - furosemide (LASIX) 40 mg tablet Take 1 tablet by mouth as needed. - glimepiride (AMARYL) 2 mg tablet Take 1 tablet by mouth daily with dinner. - hydroCHLOROthiazide 25 mg tablet Take 1 tablet by mouth once daily. - lisinopril (ZESTRIL) 40 mg tablet Take 1 tablet by mouth two times a day. - metFORMIN (GLUCOPHAGE) 500 mg tablet Take by mouth. take 2 tabs w/breakfast;1 tab with lunch and TWO tabs w/ dinner - nitroglycerin sublingual (NITROQUICK) 0.4 mg SL tablet Dissolve 1 tablet under the tongue as needed. FOR CHEST PAIN. IF NO RELIEF CALL 911 - carvedilol (COREG) 3.125 mg tablet Take 1 tablet by mouth two times a day with meals. - SITagliptin phosphate (JANUVIA) 100 mg tablet Take 1 tablet by mouth once daily. - Blood-Glucose Meter,Continuous (FREESTYLE KIRK 3 READER) [facility] [place] Check blood sugars 3-4 times a day Dx: E11.65 no insulin - Blood-Glucose Sensor (FREESTYLE KIRK 3 SENSOR) em Apply a new sensor once every 2 weeks. Check blood sugars 3-4 times a day Dx: E11.65 no insulin - oxybutynin (DITROPAN) 5 mg tablet Take 0.5 tablets by mouth twice daily. - blood sugar diagnostic (BLOOD GLUCOSE TEST) test strip Test blood sugar(s) 2 times daily. Dx: Type 2 DM - Uncontrolled E11.65 Insulin: No - aspirin, enteric coated (ASPIRIN, ENTERIC COATED) 81 mg EC tablet Take 81 mg by mouth once daily. Take one tablet daily - Lancets lancets Test blood sugar(s) 2 times daily. Dx: Type 2 DM - Uncontrolled E11.65 Insulin: No - Cholecalciferol, Vitamin D3, 2,000 unit cap Take 3 capsules by mouth once daily. - Blood Pressure Cuff - Home Use BLOOD PRESSURE CUFF FOR HOME USE. 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*07/01/2007 Actinic Keratosis [L57.0] 02/26/2009 06/28/2009 Other Seborrheic Keratosis [L82.1] 02/26/2009 06/28/2009 Sun-Damaged Skin [L57.8] 02/26/2009 06/28/2009 Solar Lentigo [L81.4] 02/26/2009 06/28/2009 Scar Condition and Fibrosis of Skin [L90.5] 02/26/2009 06/28/2009 Personal history of other malignant neoplasm of*02/26/2009 Capillary Angioma [I78.1] 02/26/2009 06/28/2009 Xerosis Cutis [L85.3] 02/26/2009 06/28/2009 Venous Stasis [I87.8] 02/26/2009 06/28/2009 Osteopenia [M85.80] 04/24/2011 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)*07/07/2013 Essential hypertension [I10] 07/13/2014 Routine gynecological examination [Z01.419] 07/21/2014 Gastroesophageal reflux disease with esophagiti*04/23/2015 Skin cancer, basal cell [C44.91] 04/23/2015 Bilateral leg edema [R60.0] 05/31/2015 Vitamin D deficiency [ (more content not included)...[facility] 11-17-2023 NoteHNO ID: [id number] Author: MONICA PARRISH APRN.DIESEL MAINTENANCE TECHNICIAN Service: ? Author Type: Nurse Practitioner Type: Progress Notes Filed: 11/17/2023 15:28 Note Text: Subjective Patient came in with complaints of water blister on her right lower pitts. Patient says it started several days ago and has been draining for the last few days. Patient says today she woke up and noticed some redness around it. Patient says in July she was hospitalized with an infection in the leg. Patient does have history of high blood pressure and diabetes. Patient denies any other symptoms associated with this. The history is provided by the patient. No bilingual speech language pathologist was used. Edema Review of Systems Constitutional: Negative. Skin: Negative. Objective Physical Exam Constitutional: Appearance: Normal appearance. Pulmonary: Effort: Pulmonary effort is normal. Skin: Comments: 5-6 cm water blister located int he area marked above. It is draining. Some redness and warmth noted around area. Patient did have a dressing and Chava wrap on the wound. When I remove them they were wet so I did replace some with a nonstick dressing and Chava wrap. Neurological: Mental Status: She is alert. PAST MEDICAL HISTORY 03/21/2021: Acquired deformity of left toe Comment: second and third digits 01/19/2020: Adjustment disorder with depressed mood 12/02/2015: Aortic stenosis, mild Comment: Seeing Dr. Tesfaye: Echo 12/02/2015: Also showed mild TR and MR 05/31/2015: Bilateral leg edema 05/10/2022: Carpal tunnel syndrome, bilateral Comment: NCS 05/2022: Sever on Rt and Mod on the left 07/01/2007: Controlled type 2 diabetes with neuropathy ([facility]) 09/18/2016: Corns and callus 01/19/2020: Current severe episode of major depressive disorder with psychotic features without prior episode ([facility]) 08/21/2016: Diabetic eye exam ([facility]) Comment: Last Done: 08/09/2017 No Retinopathy No date: Diaphragmatic hernia without mention of obstruction or gangrene 07/03/2022: Diastolic congestive heart failure ([facility]) 08/28/2018: Elevated alkaline phosphatase level 07/03/2017: Elevated serum GGT level 07/13/2014: Essential hypertension 03/21/2021: Foot callus 09/05/2018: SAMEER (generalized anxiety disorder) 04/23/2015: Gastroesophageal reflux disease with esophagitis No date: Herpes zoster Comment: mild occasional neuralgia in left cervical area. No date: Hiatal hernia No date: History of colon polyps No date: Mixed hyperlipidemia 06/19/2016: Morbid obesity with BMI of 40.0-44.9, adult ([facility]) 03/24/2021: Multiple thyroid nodules Comment: US 03/2021: Needs yearly f/u for 5 yrs 10/10/2022: OAB (overactive bladder) 04/24/2011: Osteopenia Comment: Apr 2011; Start vitamin d 1,000/day and RE-CHECK 201302/26/2009: Personal history of other malignant neoplasm of skin No date: Schatzki's ring 07/03/2017: Sebaceous cyst Comment: lower anterior neck 04/23/2015: Skin cancer, basal cell Comment: nose No date: Stricture and stenosis of esophagus Comment: egd/dilatation by Dr. Hollins; 12/26/2021: Tinnitus of both ears Comment: Due to hearing loss. 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 Dr. Filemon Galvan. 06/10/2003: COLONOSCOPY SCRN NOT HIGH RISK Comment: upper and lower 08/17/2009: EGD Comment: Dr. Theo Hollins 11/04/2018: EGD DILATION Comment: Schatzi's Ring, mild reactive gastropathy. Dr. Filemon Galvan. 06/2003: ESOPHAGOGASTRODUODENOSCOPY TRANSORAL DIAGNOSTIC Comment: EGD 03/02/2020: EXERCISE ECG STRESS TEST Comment: negative 2007: NOSE SURGERY HX Comment: Nasal fracture repair 09/14/2022: REVISE MEDIAN N/CARPAL TUNNEL SURG; Right No date: TONSILLECTOMY AND ADENOIDECTOMY HX 12/1988: WRIST SURGERY HX Comment: Broken Left wrist surgery at [facility] - Dr. Delgado ALLERGIES Codeine, Penicillins, Pioglitazone, Prednisone, Acetaminophen, Niacin, Celebrex [Celecoxib], Niacin, and Sulfa (Sulfonamide Antibiotics) MEDICATIONS amLODIPine (NORVASC) 2.5 mg tablet Take 1 tablet by mouth once daily. furosemide (LASIX) 40 mg tablet Take 1 tablet by mouth as needed. glimepiride (AMARYL) 2 mg tablet Take 1 tablet by mouth daily with dinner. hydroCHLOROthiazide 25 mg tablet Take 1 tablet by mouth once daily. lisinopril (ZESTRIL) 40 mg tablet Take 1 tablet by mouth two times a day. metFORMIN (GLUCOPHAGE) 500 mg tablet Take by mouth. take 2 tabs w/breakfast;1 tab with lunch and TWO tabs w/ dinner nitroglycerin sublingual (NITROQUICK) 0. (more content not included)...[facility]08[facility] History of Present illness Narrative* Theo TIMUR Lagunas.DIESEL MAINTENANCE TECHNICIAN - 11/17/2023 3:23 PM EDT Images from the original note were not included. Subjective Patient came in with complaints of water blister on her right lower pitts. Patient says it started several days ago and has been draining for the last few days. Patient says today she woke up and noticed some redness around it. Patient says in July she was hospitalized with an infection in the leg. Patient does have history of high blood pressure and diabetes. Patient denies any other symptoms associated with this. The history is provided by the patient. No bilingual speech language pathologist was used. Edema Review of Systems Constitutional: Negative. Skin: Negative. Objective Physical Exam Constitutional: Appearance: Normal appearance. Pulmonary: Effort: Pulmonary effort is normal. Skin: Comments: 5-6 cm water blister located int he area marked above. It is draining. Some redness and warmth noted around area. Patient did have a dressing and Chava wrap on the wound. When I remove them they were wet so I did replace some with a nonstick dressing and Chava wrap. Neurological: Mental Status: She is alert. PAST MEDICAL HISTORY 03/21/2021: Acquired deformity of left toe Comment: second and third digits 01/19/2020: Adjustment disorder with depressed mood 12/02/2015: Aortic stenosis, mild Comment: Seeing Dr. 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) 09/18/2016: Corns and callus 01/19/2020: Current severe episode of major depressive disorder with psychotic features without prior episode (HCC) 08/21/2016: Diabetic eye exam ([facility]) Comment: Last Done: 08/09/2017 No Retinopathy No date: Diaphragmatic hernia without mention of obstruction or gangrene 07/03/2022: Diastolic congestive heart failure (HCC) 08/28/2018: Elevated alkaline phosphatase level 07/03/2017: Elevated serum GGT level 07/13/2014: Essential hypertension 03/21/2021: Foot callus 09/05/2018: SAMEER (generalized anxiety disorder) 04/23/2015: Gastroesophageal reflux disease with esophagitis No date: Herpes zoster Comment: mild occasional neuralgia in left cervical area. No date: Hiatal hernia No date: History of colon polyps No date: Mixed hyperlipidemia 06/19/2016: Morbid obesity with BMI of 40.0-44.9, adult ([facility]) 03/24/2021: Multiple thyroid nodules Comment: US 03/2021: Needs yearly f/u for 5 yrs 10/10/2022: OAB (overactive bladder) 04/24/2011: Osteopenia Comment: Apr 2011; Start vitamin d 1,000/day and RE-CHECK 201302/26/2009: Personal history of other malignant neoplasm of skin No date: Schatzki's ring 07/03/2017: Sebaceous cyst Comment: lower anterior neck 04/23/2015: Skin cancer, basal cell Comment: nose No date: Stricture and stenosis of esophagus Comment: egd/dilatation by Dr. Hollins; 12/26/2021: Tinnitus of both ears Comment: Due to hearing loss. 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 Dr. Filemon Galvan. 06/10/2003: COLONOSCOPY SCRN NOT HIGH RISK Comment: upper and lower 08/17/2009: EGD Comment: Dr. Theo Hollins 11/04/2018: EGD DILATION Comment: Schatzi's Ring, mild reactive gastropathy. Dr. Filemon Galvan. 06/2003: ESOPHAGOGASTRODUODENOSCOPY TRANSORAL DIAGNOSTIC Comment: EGD 03/02/2020: EXERCISE ECG STRESS TEST Comment: negative 2006: NOSE SURGERY HX Comment: Nasal fracture repair 09/14/2022: REVISE MEDIAN N/CARPAL TUNNEL SURG; Right No date: TONSILLECTOMY AND ADENOIDECTOMY HX 12/1988: WRIST SURGERY HX Comment: Broken Left wrist surgery at [facility] - Dr. Delgado ALLERGIES Codeine, Penicillins, Pioglitazone, Prednisone, Acetaminophen, Niacin, Celebrex [Celecoxib], Niacin, and Sulfa (Sulfonamide Antibiotics) MEDICATIONS amLODIPine (NORVASC) 2.5 mg tablet Take 1 tablet by mouth once daily. furosemide (LASIX) 40 mg tablet Take 1 tablet by mouth as needed. glimepiride (AMARYL) 2 mg tablet Take 1 tablet by mouth daily with dinner. hydroCHLOROthiazide 25 mg tablet Take 1 tablet by mouth once daily. lisinopril (ZESTRIL) 40 mg tablet Take 1 tablet by mouth two times a day. metFORMIN (GLUCOPHAGE) 500 mg tablet Take by mouth. take 2 tabs w/breakfast;1 tab with lunch and TWO tabs w/ dinner nitroglycerin sublingual (NITROQUICK) 0.4 mg SL tablet Dissolve 1 tablet under the tongue as needed. FOR CHEST PAIN. IF NO RELIEF CALL 911 carvedilol (COREG) 3.125 mg tablet Take 1 tablet by mouth two times a day with meals. SITagliptin phosphate (JANUVIA) 100 mg tablet Take 1 tablet by mouth once daily. Blood-Glucose Meter,Continuous (FREESTYLE KIRK 3 READER) [facility] [place] Check blood sugars 3-4 times a day Dx: E11.65 no insulin Blood-Glucose Sensor (FREESTYLE KIRK 3 SENSOR) em Apply a new sensor once every 2 weeks. Check blood sugars 3-4 times a day Dx: E11.65 no insulin aspirin, enteric coated (ASPIRIN, ENTERIC COATED) 81 mg EC tablet Take 81 mg by mouth once daily. Take one tablet daily Cholecalciferol, Vitamin D3, 2,000 unit cap Take 3 capsules by mouth once daily. oxybutynin (DITROPAN) 5 mg tablet Take 0.5 tablets by mouth twice daily. blood sugar diagnostic (BLOOD GLUCOSE TEST) test strip Test blood sugar(s) 2 times daily. Dx: Type 2 DM - Uncontrolled E11.65 Insulin: No (Patient not taking: Reported on 08/10/2023) Lancets lancets Test blood sugar(s) 2 times daily. Dx: Type 2 DM - Uncontrolled E11.65 Insulin: No (Patient not taking: Reported on 08/10/2023) Blood Pressure Cuff - Home Use BLOOD PRESSURE CUFF FOR HOME USE. DX: LABILE BLOOD PRESSURE (Patientnot taking: Reported on 08/10/2023) FAMILY HISTORY Problem Relation Age of Onset Allergies Mother Heart Mother Asthma Mother Alzheimer's Disease Father Heart disease Father Hypertension Father Hypertension Maternal Grandmother DVT Maternal Grandmother Stroke Paternal Grandmother Stroke Paternal Grandfather Hypertension Brother Diabetes Brother Social History Tobacco Use Smoking status: Never Smokeless tobacco: Never Tobacco comments: 2nd hand Vaping Use Vaping status: Never Used Substance Use Topics Alcohol use: No Drug use: No ASSESSMENT/PLAN: 1. Skin infection - ICD9: 686.9, ICD10: L08.9 - DOXYCYCLINE MONOHYDRATE 100 MG TABLET Patient was educated about proper use of medication and supportive therapies. Patient will monitor signs and symptoms for any worsening. If patient notices symptoms or not improving she will follow-up with primary care. Patient was okay with this care plan. Monica Parrish APRN.RITA documented in this encounterOur [facility] Of [facility]07-16-2024 History of Present illness Narrative* Liz Cole MA - 10/16/2023 7:30 AM EDT POPULATION HEALTH NAVIGATION OUTREACH Action/October 16, 2023 Patient is on [employer] Medication Adherence list for the following medications: lisinopril (ZESTRIL) 40 mg tablet - Dispense due date 09.05.2023 Medication Dispense history: LISINOPRIL 40MG TAB Sig: take 1 tablet by mouth twice daily Dispensed: 06/07/2023 12:00 AM Unit strength: 40 mg Unit form: tablet Days supply: 90 Quantity: 180 Each Refills remainin Pharmacy: [facility] [id number] Unable to access [employer] portal at this time to review Medication dispense history. Per Medication dispense management, medication has not been dispensed NOV with PCP/team is scheduled on 12.31.2023 Outcome: Spoke with patient in regards to her Lisinopril (ZESTRIL) 40 mg tablet States she still has medication left in her bottle. Believes this is due to her being in the hospital in July. She was unaware she still has refills left on prescription. Per pharmacy detail she has refills on prescription. New script was written by Dr Amaya on August 20, 2023 and sent to [facility]. She is going to stop in at pharmacy to request her next refill. Thank you Reason for Outreach Med Adherence Patient Contacted: Spoke to patient/parent/or legal guardian Patient identified by name and date of : Yes Med Adherence actions taken: Patient Med Adherence responses: Patient would like to take care of managing medication(s) on their own Navigation Signature: Liz Cole MA October 16, 2023 documented in this encounterOur Lady Of Mercy [facility]05-29-2024 History of Present illness Narrative* Arturo Amaya MD - 08/29/2023 2:41 PM EDT Chief Complaint Patient presents with: Follow Up HPI Marci Marie is a 83 year old female who presents here today for follow up on follow up cellulitis and HTN. Patient indicated that her leg getting better. Her BP was 157/70 this morning. Patient indicated that she has forgotten to take her water pill the past 2 days. Patient indicated that she also ate to much salt. She has gained 10 pounds. Has been taking her other meds on a regular basis. Past medical history, appointments, medications, allergies reviewed. Previous Medical History PAST MEDICAL HISTORY Diagnosis Date Acquired deformity of left toe 03/21/2021 second and third digits Adjustment disorder with depressed mood 01/19/2020 Aortic stenosis, mild 12/02/[address] 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 prior episode ([facility]) 01/19/2020 Diabetic eye exam ([facility]) 08/21/2016 Last Done: 08/09/2017 No Retinopathy Diaphragmatic hernia without mention of obstruction or gangrene Diastolic congestive heart failure ([facility]) 07/03/2022 Elevated alkaline phosphatase level 08/28/2018 Elevated serum GGT level 07/03/2017 Essential hypertension 07/13/2014 Foot callus 03/21/2021 SAMEER (generalized anxiety disorder) 09/05/2018 Gastroesophageal reflux disease with esophagitis 04/23/2015 Herpes zoster mild occasional neuralgia in left cervical area. Hiatal hernia History of colon polyps Mixed hyperlipidemia Morbid obesity with BMI of 40.0-44.9, adult ([facility]) 06/19/2016 Multiple thyroid nodules 03/24/2021 US 03/2021: Needs yearly f/u for 5 yrs OAB (overactive bladder) 10/10/2022 Osteopenia 04/24/2011; Start vitamin d 1,000/day and RE-CHECK 2013 Personal history of other malignant neoplasm of skin 02/26/2009 Schatzki's ring Sebaceous cyst 07/03/2017 lower anterior neck Skin cancer, basal cell 04/23/2015 nose Stricture and stenosis of esophagus egd/dilatation by Dr. Hollins; Tinnitus of both ears 12/26/2021 Due to hearing loss. Type 2 diabetes mellitus with proteinuria ([facility]) ([facility]) 07/07/2013 Uncontrolled type 2 diabetes mellitus with hyperglycemia ([facility]) 01/02/2020 Venous (peripheral) insufficiency 12/21/2015 Vitamin D deficiency 11/26/2015 Previous Surgical History PAST SURGICAL HISTORY Procedure Laterality Date 2D ECHO (EXEP) 12/02/2015 EF=59% mild LVH, mild MR,TR and 2D ECHO (EXEP) 02/13/2020 EF=65%, mild dilated LA, 1+ MR and CHOLECYSTECTOMY Cholecystectomy COLONOSCOPY 11/04/2018 Sessile serrated polyp, Tubullovillous adenoma. Dr. Filemon Galvan. COLONOSCOPY SCRN NOT HIGH RISK 06/10/2003 upper and lower EGD 08/17/2009 Dr. Theo Hollins EGD DILATION 11/04/2018 Schatzi's Ring, mild reactive gastropathy. Dr. Filemon Galvan. ESOPHAGOGASTRODUODENOSCOPY TRANSORAL DIAGNOSTIC 06/2003 EGD EXERCISE ECG STRESS TEST 03/02/2020 negative NOSE SURGERY HX 2006 Nasal fracture repair REVISE MEDIAN N/CARPAL TUNNEL SURG Right 09/14/2022 TONSILLECTOMY AND ADENOIDECTOMY HX WRIST SURGERY HX 12/1988 Broken Left wrist surgery at [facility] - Dr. Delgado Family History FAMILY HISTORY Problem Relation Age of Onset Allergies Mother Heart Mother Asthma Mother Alzheimer's Disease Father Heart disease Father Hypertension Father Hypertension Maternal Grandmother DVT Maternal Grandmother Stroke Paternal Grandmother Stroke Paternal Grandfather Hypertension Brother Diabetes Brother Patient Allergies ALLERGIES Allergen Reactions Codeine Rash Penicillins Rash Pioglitazone Other: See Comments Increased leg edema and CHF symptoms Prednisone Rash Celebrex [Celecoxib] Unknown Niacin Rash Sulfa (Sulfonamide * Rash Current Medications Current Outpatient Medications on File Prior to Visit Medication Sig amLODIPine (NORVASC) 2.5 mg tablet Take 1 tablet by mouth once daily. furosemide (LASIX) 40 mg tablet Take 1 tablet by mouth as needed. glimepiride (AMARYL) 2 mg tablet Take 1 tablet by mouth daily with dinner. hydroCHLOROthiazide 25 mg tablet Take 1 tablet by mouth once daily. lisinopril (ZESTRIL) 40 mg tablet Take 1 tablet by mouth two times a day. metFORMIN (GLUCOPHAGE) 500 mg tablet Take by mouth. take 2 tabs w/breakfast;1 tab with lunch and TWO tabs w/ dinner nitroglycerin sublingual (NITROQUICK) 0.4 mg SL tablet Dissolve 1 tablet under the tongue as needed. FOR CHEST PAIN. IF NO RELIEF CALL 911 carvedilol (COREG) 3.125 mg tablet Take 1 tablet by mouth two times a day with meals. SITagliptin phosphate (JANUVIA) 100 mg tablet Take 1 tablet by mouth once daily. Blood-Glucose Meter,Continuous (FREESTYLE KIRK 3 READER) [facility] [place] Check blood sugars 3-4 times a day Dx: E11.65 no insulin Blood-Glucose Sensor (FREESTYLE KIRK 3 SENSOR) em Apply a new sensor once every 2 weeks. Check blood sugars 3-4 times a day Dx: E11.65 no insulin oxybutynin (DITROPAN) 5 mg tablet Take 0.5 tablets by mouth twice daily. blood sugar diagnostic (BLOOD GLUCOSE TEST) test strip Test blood sugar(s) 2 times daily. Dx: Type 2 DM - Uncontrolled E11.65 Insulin: No (Patient not taking: Reported on 08/10/2023) aspirin, enteric coated (ASPIRIN, ENTERIC COATED) 81 mg EC tablet Take 81 mg by mouth once daily. Take one tablet daily Lancets lancets Test blood sugar(s) 2 times daily. Dx: Type 2 DM - Uncontrolled E11.65 Insulin: No (Patient not taking: Reported on 08/10/2023) Cholecalciferol, Vitamin D3, 2,000 unit cap Take 3 capsules by mouth once daily. Blood Pressure Cuff - Home Use BLOOD PRESSURE CUFF FOR HOME USE. DX: LABILE BLOOD PRESSURE (Patientnot taking: Reported on 08/10/2023) No current facility-administered medications on file prior to visit. Social History Social History Tobacco Use Smoking status: Never Smokeless tobacco: Never Tobacco comments: 2nd hand Vaping Use Vaping Use: Never used Substance Use Topics Alcohol use: No Drug use: No Review of Symptoms REVIEW OF SYSTEMS See HPI EXAM: BP 152/76 (BP Site: Left Arm, BP Position: Sitting, BP Cuff Size: Large Adult) Pulse 81 Resp 18 Wt 98.9 kg (218 lb) LMP (LMP Unknown) SpO2 98% BMI 35.19 kg/m Last 6 Encounter BP Readings: Date: BP: 08/29/2023 152/76 08/20/2023 150/90 08/10/2023 162/84 04/12/2023 152/87 12/05/2022 136/84 10/23/2022 134/70 General Appearance: Well appearing, alert, in no acute distress, well-hydrated, well nourished. andObese. Skin: Right leg: the erythema has improved other then that from congestion due to the edema. The right leg is not warm to touch. Still has dry skin. No open sores. Health Maintenance List Shingrix Vaccine(1 of 2) Never done RSV Vaccine(1 - 1-dose 60+ series) Never done Dilated Retinal Exam due on 08/09/2018 Covid-19 Vaccine(2022- season) due on 12/05/2022 Behavioral Health Screening Never done LDL Cholesterol due on 04/11/2023 Diabetic Foot Exam due on 10/11/2023 HbA1C due on 11/11/2023 DTaP,Tdap,Td Vaccine(5 - Td or Tdap) due on 12/27/2025 Bone Density Screening Completed Influenza Vaccine Completed Pneumococcal Vaccine: 65+ Completed HPV Vaccine Aged Out Urine Albumin:Creatinine Ratio Discontinued Colorectal Cancer Screening Discontinued Advance Directive Discussion Discontinued Data reviewed A/P ASSESSMENT/PLAN: 1. Cellulitis of skin - ICD9: 682.9, ICD10: L03.90 (primary diagnosis) - resolved. - patient to work on routine use of lotion to help keep the skin softer and less like;ly to crack. 2. Essential hypertension - ICD9: 401.9, ICD10: I10 - Uncontrolled - Continue current medications - Recommend home blood pressure monitoring, to bring results to next visit - Encouraged sodium restriction, DASH or Mediterranean diet - Recommend regular aerobic exercise - patient to take her meds regularly. F/u in 3 weeks HTN check Arturo Amaya MD documented in this encounterOur [facility]05-22-2024 History of Present illness Narrative* Becki Perez, [facility] - 08/22/2023 11:50 AM EDT Marci Marie is identified through a medication adherence outreach initiative based on pharmacy claims data from insurer for non-insulin DM medication(s). Patient originally reviewed by pharmacy scheduler (see patient outreach encounter from 08/21/23) and escalated to PharmD d/t nonadherence concerns with metformin and A1c > 8%. Lab Results Component Value Date HBA1C 12.9 08/11/2023 HBA1C 8.8 10/10/2022 HBA1C 6.9 04/11/2022 HBA1C 7.8 09/07/2021 HBA1C 7.8 03/21/2021 HBA1C 6.8 08/23/2020 HBA1C 5.7 04/13/2020 Outreach consists of: Pharmacist attempted to reach out to discuss nonadherence to medications in the past on 02/28/23 and 07/09/23 Recent hospitalization on 08/12/23 for right lower extremity cellulitis PCP visit on 08/20/23 for hospital discharge follow up, patient told hospital provider she was off of her chronic medications for 3-4 weeks, PCP reviewed that there are a few medications she has not been taking for about 6 months, patient advised to restart diabetes medications, A1c was previously controlled on medications, most recent A1c elevated at 12.9% d/t medication nonadherence. Order also sent for Mashups 3 Attempted to contact patient on 08/24/2023 - phone number disconnected Unable to send [employer] message since [employer] is not active Diabetes medication refills sent to pharmacy on 08/20/23 during PCP visit per dispense report, glimepiride (90 days), metformin (30 days), and Januvia (90 days) all filled on 08/20/23. Outcome of review/outreach: Unable to reach patient - phone number disconnected Patient recently followed up with PCP where nonadherence was noted and refills issued for diabetes medications Becki Perez RPh documented in this encounterOur Lady Of Mercy [facility]05-21-2024 History of Present illness Narrative* Atiya Noyola - 08/21/2023 3:48 PM EDT Marci Marie is identified through a medication adherence outreach initiative based on pharmacy claims data from [employer] (insurer) for Non-insulin DM medication(s). Patient is reviewed 08/21/23 due to medication adherence concerns with the following medications (name, strength, sig): Metformin 500mg 2 tabs in the am, 1 tab lunch 2 tabs with dinner Per data/report, last fill date and days supply: Metformin due /6 Per reconcile dispense, last fill date and days supply: Metformin 08/20/23 for 30 ds Per call to pharmacy, last picked up date and days supply: n/a Outcome of review/outreach: (choose outcome source and status) - Filled later than 7 days after Next fill date per reconcile dispense Pt A1C is 12.9 Atiya Noyola Visual Stylist documented in this encounterOur Lady Of Mercy Hospital05-20-2024 History of Present illness Narrative* Arturo Amaya MD - 08/20/2023 1:00 PM EDT Chief Complaint Patient presents with: Hospital F/U HPI Marci Marie is a 83 year old female who presents here today for Hospital Discharge Follow up. Patient admitted to [facility] on 08/14/2023 for right lower extremity cellulitis. Patient was sent home on keflex 4 times a day and has 3 days left. She has been using A and D ointment on the right lower leg. Her swelling is decreased along with the redness. No fever, chill or pain with walking on the right leg. Patient told the Hospital provider that she had only been off her chronic meds for about 3-4 weeks but when looking at her last med refills there area few that she has been off for about 6 months. Past medical history, appointments, medications, allergies reviewed. Previous Medical History PAST MEDICAL HISTORY Diagnosis Date Acquired deformity of left toe 03/21/2021 second and third digits Adjustment disorder with depressed mood 01/19/2020 Aortic stenosis, mild 12/02/[address] 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 Hiatal hernia History of colon polyps Mixed hyperlipidemia Morbid obesity with BMI of 40.0-44.9, adult (HCC) 06/19/2016 Multiple thyroid nodules 03/24/2021 US 03/2021: Needs yearly f/u for 5 yrs OAB (overactive bladder) 10/10/2022 Osteopenia 04/24/2011; Start vitamin d 1,000/day and RE-CHECK 2013 Personal history of other malignant neoplasm of skin 02/26/2009 Schatzki's ring Sebaceous cyst 07/03/2017 lower anterior neck Skin cancer, basal cell 04/23/2015 nose Stricture and stenosis of esophagus egd/dilatation by Dr. Hollins; Tinnitus of both ears 12/26/2021 Due to hearing loss. 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 Dr. Filemon Galvan. COLONOSCOPY SCRN NOT HIGH RISK 06/10/2003 upper and lower EGD 08/17/2009 Dr. Theo Hollins EGD DILATION 11/04/2018 Schatzi's Ring, mild reactive gastropathy. Dr. Filemon Galvan. ESOPHAGOGASTRODUODENOSCOPY TRANSORAL DIAGNOSTIC 06/2003 EGD EXERCISE ECG STRESS TEST 03/02/2020 negative NOSE SURGERY HX 2006 Nasal fracture repair REVISE MEDIAN N/CARPAL TUNNEL SURG Right 09/14/2022 TONSILLECTOMY AND ADENOIDECTOMY HX WRIST SURGERY HX 12/1988 Broken Left wrist surgery at [facility] - Dr. Delgado Family History FAMILY HISTORY Problem Relation Age of Onset Allergies Mother Heart Mother Asthma Mother Alzheimer's Disease Father Heart disease Father Hypertension Father Hypertension Maternal Grandmother DVT Maternal Grandmother Stroke Paternal Grandmother Stroke Paternal Grandfather Hypertension Brother Diabetes Brother Patient Allergies ALLERGIES Allergen Reactions Codeine Rash Penicillins Rash Pioglitazone Other: See Comments Increased leg edema and CHF symptoms Prednisone Rash Celebrex [Celecoxib] Unknown Niacin Rash Sulfa (Sulfonamide * Rash Current Medications Current Outpatient Medications on File Prior to Visit Medication Sig amLODIPine (NORVASC) 2.5 mg tablet Take 1 tablet by mouth once daily. (Patient not taking: Reportedon 08/10/2023) metoprolol tartrate, short acting, (LOPRESSOR) 25 mg tablet Take 1 tablet by mouth twice daily. glimepiride (AMARYL) 2 mg tablet Take 1 tablet by mouth daily with dinner. (Patient not taking: Reported on 08/10/2023) oxybutynin (DITROPAN) 5 mg tablet Take 0.5 tablets by mouth twice daily. polyethylene glycol 3350 (MIRALAX) 17 gram packet Take 1 Packet by mouth once daily. Dissolve dose in 4 - 8 ounces of liquid and take as directed. (Patient not taking: Reported on 08/10/2023) lisinopril (ZESTRIL) 40 mg tablet Take 1 tablet by mouth twice daily. (Patient not taking: Reportedon 08/10/2023) hydroCHLOROthiazide 25 mg tablet Take 1 tablet by mouth once daily. (Patient not taking: Reported on 08/10/2023) metFORMIN (GLUCOPHAGE) 500 mg tablet Take by mouth. take 2 tabs w/breakfast;1 tab with lunch and TWO tabs w/ dinner (Patient not taking: Reported on 08/10/2023) SITagliptin phosphate (JANUVIA) 100 mg tablet Take 1 tablet by mouth once daily. (Patient not taking: Reported on 08/10/2023) blood sugar diagnostic (BLOOD GLUCOSE TEST) test strip Test blood sugar(s) 2 times daily. Dx: Type 2 DM - Uncontrolled E11.65 Insulin: No (Patient not taking: Reported on 08/10/2023) aspirin, enteric coated (ASPIRIN, ENTERIC COATED) 81 mg EC tablet Take 81 mg by mouth once daily. Take one tablet daily (Patient not taking: Reported on 08/10/2023) nitroglycerin sublingual (NITROQUICK) 0.4 mg SL tablet Dissolve 1 tablet under the tongue as needed. FOR CHEST PAIN. IF NO RELIEF CALL 911 (Patient not taking: Reported on 08/10/2023) furosemide (LASIX) 80 mg tablet Take 0.5 tablets by mouth as needed. (Patient not taking: Reported on 08/10/2023) pimecrolimus (ELIDEL) 1 % cream Apply to affected area twice daily. (Patient not taking: Reported on 08/10/2023) ibuprofen (MOTRIN) 200 mg tablet Take by mouth. (Patient not taking: Reported on 08/10/2023) Lancets lancets Test blood sugar(s) 2 times daily. Dx: Type 2 DM - Uncontrolled E11.65 Insulin: No (Patient not taking: Reported on 08/10/2023) Cholecalciferol, Vitamin D3, 2,000 unit cap Take 3 capsules by mouth once daily. (Patient not taking: Reported on 08/10/2023) Blood Pressure Cuff - Home Use BLOOD PRESSURE CUFF FOR HOME USE. DX: LABILE BLOOD PRESSURE (Patientnot taking: Reported on 08/10/2023) ACETAMINOPHEN (TYLENOL ARTHRITIS ORAL) Take 1 tablet by mouth every 6 hours. (Patient not taking: Reported on 08/10/2023) No current facility-administered medications on file prior to visit. Social History Social History Tobacco Use Smoking status: Never Smokeless tobacco: Never Tobacco comments: 2nd hand Vaping Use Vaping Use: Never used Substance Use Topics Alcohol use: No Drug use: No Review of Symptoms REVIEW OF SYSTEMS See HPI EXAM: BP 150/90 (BP Site: Left Arm, BP Position: Sitting, BP Cuff Size: Regular Adult) Pulse 76 Resp 16 Wt 95.7 kg (211 lb) LMP (LMP Unknown) BMI 34.06 kg/m General Appearance: Well appearing, alert, in no acute distress, well-hydrated, well nourished. andObese. Skin: right leg still has some mild erythema but per where the original line was it has decreased alot. Lungs: Lungs clear to auscultation. No wheezing, rhonchi, rales.. Heart: RRR without murmur, gallop, or rubs. No ectopy. Abdomen: Normal abdominal exam, Abdomen soft, non-tender. Bowel sounds normal. No masses, organomegaly. Extremities: she has her chronic bumpiness of her lower legs from her chronic edema. Has almost 1+ edema on the right LE. Neuro: grossly intact. Health Maintenance List Shingrix Vaccine(1 of 2) Never done RSV Vaccine(1 - 1-dose 60+ series) Never done Dilated Retinal Exam due on 08/09/2018 Covid-19 Vaccine(2022- season) due on 12/05/2022 Behavioral Health Screening Never done LDL Cholesterol due on 04/11/2023 Diabetic Foot Exam due on 10/11/2023 HbA1C due on 11/11/2023 DTaP,Tdap,Td Vaccine(5 - Td or Tdap) due on 12/27/2025 Bone Density Screening Completed Influenza Vaccine Completed Pneumococcal Vaccine: 65+ Completed HPV Vaccine Aged Out Urine Albumin:Creatinine Ratio Discontinued Colorectal Cancer Screening Discontinued Advance Directive Discussion Discontinued Data reviewed Hospital reports from admission and discharge. [facility] 08/12/2023 A/P ASSESSMENT/PLAN: 1. Cellulitis of skin - ICD9: 682.9, ICD10: L03.90 (primary diagnosis) - patient to complete the antibiotic. - cont using a moisturizer on her legs to prevent skin dryness and cracking to reduce risk of skin infections. 2. Non-compliance - ICD9: V15.81, ICD10: Z91.199 - patient aware of the importance of staying on her meds 3. Essential hypertension - ICD9: 401.9, ICD10: I10 - Uncontrolled - Recommend home blood pressure monitoring, to bring results to next visit - Encouraged sodium restriction, DASH or Mediterranean diet - Recommend regular aerobic exercise - patient's BP meds will be resumed. - will see how BP is in a week - AMLODIPINE 2.5 MG TABLET 4. Uncontrolled type 2 diabetes mellitus with hyperglycemia (HCC) - ICD9: 250.02, ICD10: E11.65 - patient to get back on her meds and stay on them. Prior to being off them her A1c was down to 6.9% and most recent was 12.9% - will try to get her the [employer] Kirk 3. Requested Prescriptions Signed Prescriptions Disp Refills amLODIPine (NORVASC) 2.5 mg tablet 90 tablet 1 Sig: Take 1 tablet by mouth once daily. furosemide (LASIX) 40 mg tablet 30 tablet 3 Sig: Take 1 tablet by mouth as needed. glimepiride (AMARYL) 2 mg tablet 90 tablet 1 Sig: Take 1 tablet by mouth daily with dinner. hydroCHLOROthiazide 25 mg tablet 90 tablet 1 Sig: Take 1 tablet by mouth once daily. lisinopril (ZESTRIL) 40 mg tablet 180 tablet 1 Sig: Take 1 tablet by mouth two times a day. metFORMIN (GLUCOPHAGE) 500 mg tablet 150 tablet 5 Sig: Take by mouth. take 2 tabs w/breakfast;1 tab with lunch and TWO tabs w/ dinner nitroglycerin sublingual (NITROQUICK) 0.4 mg SL tablet 25 tablet 1 Sig: Dissolve 1 tablet under the tongue as needed. FOR CHEST PAIN. IF NO RELIEF CALL 911 carvedilol (COREG) 3.125 mg tablet 180 tablet 1 Sig: Take 1 tablet by mouth two times a day with meals. SITagliptin phosphate (JANUVIA) 100 mg tablet 90 tablet 1 Sig: Take 1 tablet by mouth once daily. Blood-Glucose Meter,Continuous (FREESTYLE KIRK 3 READER) misc 1 Each 0 Sig: Check blood sugars 3-4 times a day Dx: E11.65 no insulin Blood-Glucose Sensor (FREESTYLE KIRK 3 SENSOR) em 2 Each 11 Sig: Apply a new sensor once every 2 weeks. Check blood sugars 3-4 times a day Dx: E11.65 no insulin I spent a total of 50 minutes on the date of the service which included preparing to see the patient, [id number] patient care, completing clinical documentation, performing a medically appropriate examination, counseling and educating the patient/family/caregiver and ordering medications, tests, or procedures. Arturo Amaya MD documented in this encounterOur [facility]05-15-[facility]24 History of Present illness Narrative* Judith Parrish MA - 08/15/2023 3:12 PM EDT Was unable to get hold of patient. Judith Parrish MA documented in this encounterOur Lady Of Mercy [facility]05-11-2024 Telephone encounter Note * Telephone Encounter - Roselyn Cardona MD - 08/11/2023 4:06 PM EDT Rec'd call from Rodriguez Enriquez from the lab on critical blood sugar of 541. In further evaluation, provider and MA had already attempted to reach the pt and they did reach the pt's emergency contact who said that she will contact the patient and have her go to the ER. Roselyn Cardona MD [facility] Work Phone: 1(113) 788-846705-11-2024 Miscellaneous Notes* Telephone Encounter - Roselyn Cardona MD - 08/11/2023 4:06 PM EDT Rec'd call from Rodriguez Enriquez from the lab on critical blood sugar of 541. In further evaluation, provider and MA had already attempted to reach the pt and they did reach the pt's emergency contact who said that she will contact the patient and have her go to the ER. Roselyn Cardona MD * Telephone Encounter - Reena Mccullough - 08/11/2023 3:37 PM EDT Talked to Liyah and she agrees to try hard to connect with the patient with this message. Reena Mccullough * Telephone Encounter - Monica Parrish APRN.CNP - 08/11/2023 3:18 PM EDT Called and left message for patient to return call. If patient returns call please let them know that patient should go to the emergency room to be evaluated her blood sugar and some liver enzymes were pretty high. Patient needs to be seen sooner than Sunday. documented in this encounterOur Lady Of Mercy Hospital05-11-2024 Telephone encounter Note * Telephone Encounter - Reena Mccullough - 08/11/2023 3:37 PM EDT Talked to Liyah and she agrees to try hard to connect with the patient with this message. Reena Mccullough [facility]05-[facility] Telephone encounter Note* Telephone Encounter - Monica Parrish APRN.CNP - 08/11/2023 3:18 PM EDT Called and left message for patient to return call. If patient returns call please let them know that patient should go to the emergency room to be evaluated her blood sugar and some liver enzymes were pretty high. Patient needs to be seen sooner than Sunday. [facility] Work Phone: 1([phone]) 351-135905-10-2024 History of Present illness Narrative* Joe Craft APRN.DIESEL MAINTENANCE TECHNICIAN - 08/10/2023 6:27 PM EDT Images from the original note were not included. Subjective HPI HPI Marci Marie is a 83 year old female who presents today for CC of infected wound on right legand leg infection left. This started 2 months ago. Has tried otc medication for relief. Symptoms are worsened by nothing. Risk factors hx of leg cellulitis. Has not been taking medications for 2 months. Denies cp/sob. .Patient presents with: Wound Infection: X2mths no meds and wounds on both legs. PAST MEDICAL HISTORY Diagnosis Date Acquired deformity of left toe 03/21/2021 second and third digits Adjustment disorder with depressed mood 01/19/2020 Aortic stenosis, mild 12/02/[address] 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 Hiatal hernia History of colon polyps Mixed hyperlipidemia Morbid obesity with BMI of 40.0-44.9, adult (HCC) 06/19/2016 Multiple thyroid nodules 03/24/2021 US 03/2021: Needs yearly f/u for 5 yrs OAB (overactive bladder) 10/10/2022 Osteopenia 04/24/2011; Start vitamin d 1,000/day and RE-CHECK 2013 Personal history of other malignant neoplasm of skin 02/26/2009 Schatzki's ring Sebaceous cyst 07/03/2017 lower anterior neck Skin cancer, basal cell 04/23/2015 nose Stricture and stenosis of esophagus egd/dilatation by Dr. Hollins; Tinnitus of both ears 12/26/2021 Due to hearing loss. 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) 07/07/2013 Uncontrolled type 2 diabetes mellitus with hyperglycemia (HCC) 01/02/2020 Venous (peripheral) insufficiency 12/21/2015 Vitamin D deficiency 11/26/2015 PAST SURGICAL HISTORY Procedure Laterality Date 2D ECHO (EXEP) 12/02/2015 EF=59% mild LVH, mild MR,TR and 2D ECHO (EXEP) 02/13/2020 EF=65%, mild dilated LA, 1+ MR and CHOLECYSTECTOMY Cholecystectomy COLONOSCOPY 11/04/2018 Sessile serrated polyp, Tubullovillous adenoma. Dr. Filemon Galvan. COLONOSCOPY SCRN NOT HIGH RISK 06/10/2003 upper and lower EGD 08/17/2009 Dr. Theo Hollins EGD DILATION 11/04/2018 Schatzi's Ring, mild reactive gastropathy. Dr. Filemon Galvan. ESOPHAGOGASTRODUODENOSCOPY TRANSORAL DIAGNOSTIC 06/2003 EGD EXERCISE ECG STRESS TEST 03/02/2020 negative NOSE SURGERY HX 2006 Nasal fracture repair REVISE MEDIAN N/CARPAL TUNNEL SURG Right 09/14/2022 TONSILLECTOMY AND ADENOIDECTOMY HX WRIST SURGERY HX 12/1988 Broken Left wrist surgery at [facility] - Dr. Delgado ALLERGIES Codeine, Penicillins, Pioglitazone, Prednisone, Celebrex [Celecoxib], Niacin, and Sulfa (Sulfonamide Antibiotics) MEDICATIONS doxycycline monohydrate 100 mg tablet Take 1 tablet by mouth two times a day for 7 days. amLODIPine (NORVASC) 2.5 mg tablet Take 1 tablet by mouth once daily. (Patient not taking: Reportedon 08/10/2023) metoprolol tartrate, short acting, (LOPRESSOR) 25 mg tablet Take 1 tablet by mouth twice daily. glimepiride (AMARYL) 2 mg tablet Take 1 tablet by mouth daily with dinner. (Patient not taking: Reported on 08/10/2023) oxybutynin (DITROPAN) 5 mg tablet Take 0.5 tablets by mouth twice daily. polyethylene glycol 3350 (MIRALAX) 17 gram packet Take 1 Packet by mouth once daily. Dissolve dose in 4 - 8 ounces of liquid and take as directed. (Patient not taking: Reported on 08/10/2023) lisinopril (ZESTRIL) 40 mg tablet Take 1 tablet by mouth twice daily. (Patient not taking: Reportedon 08/10/2023) hydroCHLOROthiazide 25 mg tablet Take 1 tablet by mouth once daily. (Patient not taking: Reported on 08/10/2023) metFORMIN (GLUCOPHAGE) 500 mg tablet Take by mouth. take 2 tabs w/breakfast;1 tab with lunch and TWO tabs w/ dinner (Patient not taking: Reported on 08/10/2023) SITagliptin phosphate (JANUVIA) 100 mg tablet Take 1 tablet by mouth once daily. (Patient not taking: Reported on 08/10/2023) blood sugar diagnostic (BLOOD GLUCOSE TEST) test strip Test blood sugar(s) 2 times daily. Dx: Type 2 DM - Uncontrolled E11.65 Insulin: No (Patient not taking: Reported on 08/10/2023) aspirin, enteric coated (ASPIRIN, ENTERIC COATED) 81 mg EC tablet Take 81 mg by mouth once daily. Take one tablet daily (Patient not taking: Reported on 08/10/2023) nitroglycerin sublingual (NITROQUICK) 0.4 mg SL tablet Dissolve 1 tablet under the tongue as needed. FOR CHEST PAIN. IF NO RELIEF CALL 911 (Patient not taking: Reported on 08/10/2023) furosemide (LASIX) 80 mg tablet Take 0.5 tablets by mouth as needed. (Patient not taking: Reported on 08/10/2023) pimecrolimus (ELIDEL) 1 % cream Apply to affected area twice daily. (Patient not taking: Reported on 08/10/2023) ibuprofen (MOTRIN) 200 mg tablet Take by mouth. (Patient not taking: Reported on 08/10/2023) Lancets lancets Test blood sugar(s) 2 times daily. Dx: Type 2 DM - Uncontrolled E11.65 Insulin: No (Patient not taking: Reported on 08/10/2023) Cholecalciferol, Vitamin D3, 2,000 unit cap Take 3 capsules by mouth once daily. (Patient not taking: Reported on 08/10/2023) Blood Pressure Cuff - Home Use BLOOD PRESSURE CUFF FOR HOME USE. DX: LABILE BLOOD PRESSURE (Patientnot taking: Reported on 08/10/2023) ACETAMINOPHEN (TYLENOL ARTHRITIS ORAL) Take 1 tablet by mouth every 6 hours. (Patient not taking: Reported on 08/10/2023) FAMILY HISTORY Problem Relation Age of Onset Allergies Mother Heart Mother Asthma Mother Alzheimer's Disease Father Heart disease Father Hypertension Father Hypertension Maternal Grandmother DVT Maternal Grandmother Stroke Paternal Grandmother Stroke Paternal Grandfather Hypertension Brother Diabetes Brother Social History Tobacco Use Smoking status: Never Smokeless tobacco: Never Tobacco comments: 2nd hand Vaping Use Vaping Use: Never used Substance Use Topics Alcohol use: No Drug use: No ROS Objective Blood pressure 162/84, pulse 106, temperature 36.8 C (98.2 F), resp. rate 8, weight 94.6 kg (208 lb8.9 oz), SpO2 98%. Physical Exam Constitutional: General: She is not in acute distress. Appearance: She is not toxic-appearing or diaphoretic. HENT: Head: Normocephalic and atraumatic. Pulmonary: Effort: Pulmonary effort is normal. No accessory muscle usage or respiratory distress. Skin: Neurological: Mental Status: She is alert and oriented to person, place, and time. ASSESSMENT/PLAN: 1. Wound of right lower extremity, initial encounter - ICD9: 894.0, ICD10: S81.801A (primary diagnosis) Keep clean and covered. Atb ointment. - DOXYCYCLINE MONOHYDRATE 100 MG TABLET 2. Essential hypertension - ICD9: 401.9, ICD10: I10 Labs ordered, pcp appointment made or Sunday. - COMPLETE BLOOD COUNT AND DIFFERENTIAL - COMPREHENSIVE METABOLIC PANEL 3. Uncontrolled type 2 diabetes mellitus with hyperglycemia (HCC) - ICD9: 250.02, ICD10: E11.65 - HEMOGLOBIN A1C - COMPLETE BLOOD COUNT AND DIFFERENTIAL - COMPREHENSIVE METABOLIC PANEL Joe Craft APRN.DIESEL MAINTENANCE TECHNICIAN documented in this encounterOur [facility] Of [facility]04-11-2024 History of Present illness Narrative* Maude Aguilar - 07/12/2023 2:11 PM EDT Marci Marie is identified through a medication adherence outreach initiative based on pharmacy claims data from [employer] (insurer) for Non-insulin DM medication(s). Patient is reviewed 07/12/23 due to medication adherence concerns with the following medications (name, strength, sig): Januvia 100mg every day . Per data/report, last fill date and days supply: Due 07/07/23 Per reconcile dispense, last fill date and days supply: Filled 06/07/23 for 30 days Contacted patient: No answer; left generic VM Outcome of review/outreach: (choose outcome source and status) - LVM for PT Maude Aguilar documented in this encounterOur Lady Of Mercy Hospital04-08-2024 History of Present illness Narrative* Myah Brothers RPh - 07/09/2023 1:14 PM EDT Marci Marie is identified through a medication adherence outreach initiative based on pharmacy claims data from insurer for non-insulin DM medication(s). Patient originally reviewed by pharmacy scheduler (see patient outreach encounter from 07/05/23) andescalated to PharmD d/t nonadherence concerns with metformin and A1c > 8%. Last PCP visit appears to have been on 10/10/22, followed by Medicare wellness exam around 04/12/23 with recommendation forseeing PCP in 2 weeks for routine follow-up. Patient cancelled this visit but did not reschedule, due for updated A1c to assess current control. Lab Results Component Value Date HBA1C 8.8 10/10/2022 HBA1C 6.9 04/11/2022 HBA1C 7.8 09/07/2021 HBA1C 7.8 03/21/2021 HBA1C 6.8 08/23/2020 HBA1C 5.7 04/13/2020 Outcome of review/outreach: - Routing to PCP team for assistance rescheduling patient - Could consider consult to pharmacy pending updated A1c Myah Brothers RPh documented in this encounterOur Lady Of [facility]cy [facility]04-04-2024 History of Present illness Narrative* Atiya Noyola - 07/05/2023 1:29 PM EDT Marci Marie is identified through a medication adherence outreach initiative based on pharmacy claims data from [employer] (insurer) for Non-insulin DM medication(s). Patient is reviewed 07/05/23 due to medication adherence concerns with the following medications (name, strength, sig): Metformin 500mg 2 tabs am, 1 at lunch and 2 with dinner . Per data/report, last fill date and days supply: Metformin due /6 Per reconcile dispense, last fill date and days supply: Metformin 06/07/23 for 30 ds Per call to pharmacy, last picked up date and days supply: n/a Contacted patient: No answer; left generic VM Outcome of review/outreach: (choose outcome source and status) - Called pt had to [facility] Pt A1C is 8.8 Atiya Noyola Visual Stylist documented in this encounterOur Lady Of Mercy Hospital11-29-2023 History of Present illness Narrative* Atiya Noyola - 02/28/2023 3:03 PM EST Marci Marie is identified through a medication adherence outreach initiative based on pharmacy claims data from [employer] (insurer) for Non-insulin DM medication(s). Patient is reviewed 02/28/23 due to medication adherence concerns with the following medications (name, strength, sig): Glimepiride 2 mg 1 tab daily . Per data/report, last fill date and days supply: Glimepiride due 03/03 Per reconcile dispense, last fill date and days supply: Glimepiride 02/02/23 for 30 ds Per call to pharmacy, last picked up date and days supply: n/a Contacted patient: No answer; left generic VM Outcome of review/outreach: (choose outcome source and status) - Called pt had to [facility] Atiya Noyola Visual Stylist documented in this encounterOur Lady Of Mercy Hospital11-09-2023 History of Present illness Narrative* Esperanza Heath RP - 02/08/2023 1:56 PM EST Marci Marie is identified through a medication adherence outreach initiative based on pharmacy claims data from insurer for non-insulin DM medication(s). Patient originally reviewed by pharmacy scheduler (see patient outreach encounter from 02/02/23) and escalated to PharmD d/t nonadherence concerns with metformin and A1c > 8% (see trends below). Lab Results Component Value Date HBA1C 8.8 10/10/2022 HBA1C 6.9 04/11/2022 HBA1C 7.8 09/07/2021 HBA1C 7.8 03/21/2021 HBA1C 6.8 08/23/2020 HBA1C 5.7 04/13/2020 Outreach consists of: 02/08/23: Attempted to contact patient to discuss noncompliance and uncontrolled DM. No answer, leftVM. Not MyChart active. 02/13/23: Attempted again to contact patient to discuss noncompliance and uncontrolled DM. No answer. Outcome of review/outreach: Unable to reach patient after several attempts Esperanza Heath PharmD, [facility] Primary Care Pharmacist documented in this encounterOur Lady Of Mercy Hospital11-03-2023 History of Present illness Narrative* Atiya Noyola - 02/02/2023 1:54 PM EDT Marci Marie is identified through a medication adherence outreach initiative based on pharmacy claims data from [employer] (insurer) for Non-insulin DM medication(s). Patient is reviewed 02/02/23 due to medication adherence concerns with the following medications (name, strength, sig): Metformin 500mg 2 tab w/breakfast, 1 tab with lunch, 2 tabs at dinner Per data/report, last fill date and days supply: Metformin due 01/17/23 Per reconcile dispense, last fill date and days supply: Metformin 02/02/23 for 30 ds Per call to pharmacy, last picked up date and days supply: n/a Outcome of review/outreach: (choose outcome source and status) - Filled later than 7 days after Next fill date per reconcile dispense Escalated to Pharmacist A1C 8.8 Atiya Noyola Visual Stylist documented in this encounterOur Lady Of Mercy Hospital09-09-2023 Miscellaneous Notes* Telephone Encounter - Azra Up PA-C - 12/09/2022 9:46 AM EDT Called and discussed wound culture with patient. She states she has not had much improvement on theKeflex. I did call in Cipro due to the Pseudomonas. She has tolerated Levaquin previously in March of this year. Discussed follow-up with PCP if not improving. Patient agreeable. documented in this encounterOur Lady Of Mercy Hospital09-07-2023 History of Present illness Narrative* Scarlet Jackson Ma - 12/07/2022 3:14 PM EDT [facility] ER Report and CT scan attached below: View External Imaging - CT Scan [ID [id number]] Scan on 12/07/2022 2:31 PM by ProviderMarissa PA-C: Consultation - Emergency Medicine Scarlet Jackson Ma documented in this encounterOur Lady Of Mercy Hospital09-05-2023 History of Present illness Narrative* Azra Up PA-C - 12/05/2022 6:15 PM EDT This note was created using FINDING ROVERriter. Subjective Marci Marie is a 82 year old female. HPI Presents with a chief complaint of right leg redness and pain. She had fallen 2 weeks ago at her granddaughter's house. She did not have a railing on the back porch and her cane had slipped due to the rain. She fell on her right side scraping her leg. She ended up being seen in the ER and had x-rays of her shoulder and hip. She was told that these were negative. She had landed with her head in the weeds of the flower bed so did not have a significant head injury. She states she has had increased redness and pain and now some puslike drainage out of the wound from her right lower leg. She doeshave chronic lymphedema and gets cellulitis off and on. No fever. No chills. No vomiting. Review of Systems Musculoskeletal: Right lower leg pain and redness All other systems reviewed and are negative. PAST MEDICAL HISTORY Diagnosis Date Acquired deformity of left toe 03/21/2021 second and third digits Adjustment disorder with depressed mood 01/19/2020 Aortic stenosis, mild 12/02/[address] 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 prior episode ([facility]) 01/19/2020 Diabetic eye exam ([facility]) 08/21/2016 Last Done: 08/09/2017 No Retinopathy Diaphragmatic hernia without mention of obstruction or gangrene Diastolic congestive heart failure [facility] [facility] 07/03/2022 Elevated alkaline phosphatase level 08/28/2018 Elevated serum GGT level 07/03/2017 Essential hypertension 07/13/2014 Foot callus 03/21/2021 SAMEER (generalized anxiety disorder) 09/05/2018 Gastroesophageal reflux disease with esophagitis 04/23/2015 Herpes zoster mild occasional neuralgia in left cervical area. Hiatal hernia History of colon polyps Mixed hyperlipidemia Morbid obesity with BMI of 40.0-44.9, adult ([facility]) 06/19/2016 Multiple thyroid nodules 03/24/2021 US 03/2021: Needs yearly f/u for 5 yrs OAB (overactive bladder) 10/10/2022 Osteopenia 04/24/2011; Start vitamin d 1,000/day and RE-CHECK 2013 Personal history of other malignant neoplasm of skin 02/26/2009 Schatzki's ring Sebaceous cyst 07/03/2017 lower anterior neck Skin cancer, basal cell 04/23/2015 nose Stricture and stenosis of esophagus egd/dilatation by Dr. Hollins; Tinnitus of both ears 12/26/2021 Due to hearing loss. Type 2 diabetes mellitus with proteinuria ([facility]) 07/07/2013 Uncontrolled type 2 diabetes mellitus with hyperglycemia ([facility]) 01/02/2020 Venous (peripheral) insufficiency 12/21/2015 Vitamin D deficiency 11/26/2015 Current Outpatient Medications Medication Sig Dispense Refill metoprolol tartrate, short acting, (LOPRESSOR) 25 mg tablet Take 1 tablet by mouth twice daily. 180tablet 0 glimepiride (AMARYL) 2 mg tablet Take 1 tablet by mouth daily with dinner. 30 tablet 5 polyethylene glycol 3350 (MIRALAX) 17 gram packet Take 1 Packet by mouth once daily. Dissolve dose in 4 - 8 ounces of liquid and take as directed. 14 Packet 0 lisinopril (ZESTRIL) 40 mg tablet Take 1 tablet by mouth twice daily. 180 tablet 3 hydroCHLOROthiazide 25 mg tablet Take 1 tablet by mouth once daily. 30 tablet 3 metFORMIN (GLUCOPHAGE) 500 mg tablet Take by mouth. take 2 tabs w/breakfast;1 tab with lunch and TWO tabs w/ dinner 150 tablet 5 SITagliptin phosphate (JANUVIA) 100 mg tablet Take 1 tablet by mouth once daily. 30 tablet 5 blood sugar diagnostic (BLOOD GLUCOSE TEST) test strip Test blood sugar(s) 2 times daily. Dx: Type 2 DM - Uncontrolled E11.65 Insulin: No 100 Strip 11 aspirin, enteric coated (ASPIRIN, ENTERIC COATED) 81 mg EC tablet Take 81 mg by mouth once daily. Take one tablet daily nitroglycerin sublingual (NITROQUICK) 0.4 mg SL tablet Dissolve 1 tablet under the tongue as needed. FOR CHEST PAIN. IF NO RELIEF CALL 911 25 Bottle of 25 2 furosemide (LASIX) 80 mg tablet Take 0.5 tablets by mouth as needed. 30 tablet 2 pimecrolimus (ELIDEL) 1 % cream Apply to affected area twice daily. 30 g 0 ibuprofen (MOTRIN) 200 mg tablet Take by mouth. Lancets lancets Test blood sugar(s) 2 times daily. Dx: Type 2 DM - Uncontrolled E11.65 Insulin: No 100 Each 11 Cholecalciferol, Vitamin D3, 2,000 unit cap Take 3 capsules by mouth once daily. 0 Blood Pressure Cuff - Home Use BLOOD PRESSURE CUFF FOR HOME USE. DX: LABILE BLOOD PRESSURE 1 Device0 ACETAMINOPHEN (TYLENOL ARTHRITIS ORAL) Take 1 tablet by mouth every 6 hours. doxycycline (VIBRA-TABS) 100 mg tablet Take 1 tablet by mouth twice daily for 10 days. 20 tablet 0 fluconazole (DIFLUCAN) 150 mg tablet Take 1 tablet by mouth one time only for 1 dose. Repeat in 3 days as needed. 2 tablet 0 oxybutynin (DITROPAN) 5 mg tablet Take 0.5 tablets by mouth twice daily. 30 tablet 1 amLODIPine (NORVASC) 2.5 mg tablet Take 1 tablet by mouth once daily. 30 tablet 5 No current facility-administered medications for this visit. PAST SURGICAL HISTORY Procedure Laterality Date 2D ECHO (EXEP) 12/02/2015 EF=59% mild LVH, mild MR,TR and 2D ECHO (EXEP) 02/13/2020 EF=65%, mild dilated LA, 1+ MR and CHOLECYSTECTOMY Cholecystectomy COLONOSCOPY 11/04/2018 Sessile serrated polyp, Tubullovillous adenoma. Dr. Filmeon Galvan. COLONOSCOPY SCRN NOT HIGH RISK 06/10/2003 upper and lower EGD 08/17/2009 Dr. Theo Hollins EGD DILATION 11/04/2018 Schatzi's Ring, mild reactive gastropathy. Dr. Filemon Galvan. ESOPHAGOGASTRODUODENOSCOPY TRANSORAL DIAGNOSTIC 06/2003 EGD EXERCISE ECG STRESS TEST 03/02/2020 negative NOSE SURGERY HX 2006 Nasal fracture repair [facility] N/CARPAL TUNNEL SURG Right 09/14/2022 TONSILLECTOMY AND ADENOIDECTOMY HX WRIST SURGERY HX 12/1988 Broken Left wrist surgery at [facility] - Dr. Delgado FAMILY HISTORY Problem Relation Age of Onset Allergies Mother Heart Mother Asthma Mother Alzheimer's Disease Father Heart disease Father Hypertension Father Hypertension Maternal Grandmother DVT Maternal Grandmother Stroke Paternal Grandmother Stroke Paternal Grandfather Hypertension Brother Diabetes Brother Social History Tobacco Use Smoking status: Never Smokeless tobacco: Never Tobacco comments: 2nd hand Vaping Use Vaping Use: Never used Substance Use Topics Alcohol use: No Drug use: No Objective BP 136/84 Pulse 84 Temp 37.1 C (98.8 F) (Tympanic) Resp 18 Wt 111.2 kg (245 lb 3.2 oz) LMP (LMP Unknown) SpO2 94% BMI 39.58 kg/m Physical Exam Vitals reviewed. Constitutional: Appearance: Normal appearance. HENT: Head: Normocephalic and atraumatic. Musculoskeletal: Comments: Patient has erythema and warmth to the lateral right lower leg with some central drainage. Chronic appearing lymphedema of both legs. Some warmth to the area of concern on the lateral rightleg. No sign of drainable abscess. Skin: General: Skin is warm and dry. Neurological: General: No focal deficit present. Mental Status: She is alert. Assessment and Plan ASSESSMENT/PLAN: 1. Cellulitis and abscess of right leg - ICD9: 682.6, ICD10: L03.115, L02.415 - Begin treatment with doxycycline, patient had yeast infection from keflex. Also given diflucan asshe feels she may get a yeast infection. Follow-up with PCP if not improving. Red flags for ER carediscussed. Patient agreeable. Wound culture also obtained. - - ABSCESS AND WOUND CULTURE WITH GRAM STAIN Azra Up PA-C [facility] History of Present illness Narrative* Judith Parrish MA - 11/15/2022 2:17 PM EDT Scan on 11/15/2022 12:39 AM by ProviderMarissa PA-C: X-ray Scan on 11/15/2022 12:41 AM by Marissa Thomas PA-C: X-ray Scan on 11/15/2022 12:43 AM by Marissa Thomas PA-C: X-ray Scan on 11/15/2022 1:19 AM by Marissa Thomas PA-C: Consultation - Emergency Medicine Judith Parrish MA documented in [facility] encounter[facility] Discharge summary Author Danny Bhardwaj [facility] November 15, 2022 1:09am Note Date/Time November 14, 2022 11 :44pm [facility] Medical Records Department [address] [place] [address] Emergency Department Summary 11/14/22 MR#: [id number] Acct: [id number] Name: MARCI MARIE Rep #:[id number] : 1940 82 From: Danny Bhardwaj DO PCP: Dr. Arturo Amaya MD Status:REG ER Location: ED HPI History of Present Illness Chief Complaint: Fall Informant: patient Narrative Narrative: Patient is an 82-year-old female with past medical history of hypertension dyslipidemia and diabetes. 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 She states she was walking out the back door down the back steps when her cane slipped on the wet concrete causing her to fall on her right side. She denies striking her head or any lossof consciousness. She denies any history of bleeding disorder or blood thinner use. She states she was only on the ground for a few minutes and was able to get back up with the help of her granddaughter. However she noticed pain in herright arm/shoulder region that was worse with touch and motion and concern for fracture she comes in for evaluation [facility] Medical History Acute kidney injury Aortic stenosis Atrial fibrillation Chronic venous insufficiency Diabetes mellitus Diabetic neuropathy Diaphragmatic hernia Dyslipidemia Edema of left lower extremity Edema of left lower extremity due to peripheral venous insufficiency Edema of right lower extremity Edema of right lower extremity due to peripheral venous insufficiency Esophageal spasm Esophageal stricture Gastroenteritis GERD (gastroesophageal reflux disease) Hearing deficit Hiatal hernia History of basal cell cancer History of esophageal dilatation HTN (hypertension) Hyperlipidemia Hypokalemia Metabolic acidosis Obesity (BMI 35.0-39.9 without comorbidity) Osteoporosis Overactive bladder Swelling of left lower extremity Swelling of right lower extremity Thrombocytopenia Tinnitus Venous stasis dermatitis Home Medications glimepiride 4 mg tablet 4 mg PO BID DIABETES 07/05/17 [History Last Taken 04/01/18] metformin 500 mg tablet 500 mg PO UD diabetes 07/05/17 [History Last Taken 04/01/18] furosemide 80 mg tablet 80 mg PO DAILY PRN edema 02/01/18 [History Last Taken Unknown] acetaminophen 500 mg tablet (Tylenol Extra Strength) 1,000 mg PO PRN PRN Pain 04/01/18 [History Last Taken 03/31/18] hydrochlorothiazide 25 mg tablet 25 mg PO DAILY diuretic 04/01/18 [History Last Taken Unknown] ibuprofen 200 mg tablet 200 mg PO PRN PRN Pain 04/01/18 [History Last Taken 04/01/18] metoprolol succinate 25 mg tablet,extended release 24 hr (Toprol XL) 25 mg PO DAILY blood pressure 04/01/18 [History Last Taken Unknown] cholecalciferol (vitamin D3) 50 mcg (2,000 unit) capsule 4,000 unit PO DAILY 01/11/20 [History Last Taken Unknown] amlodipine 2.5 mg tablet (Norvasc) 2.5 mg PO DAILY 10/10/22 [History Last Taken Unknown] aspirin 81 mg chewable tablet (Jalen Chewable Low Dose Aspirin) 1 tab PO DAILY 10/10/22 [History Last Taken Unknown] carvedilol 3.125 mg tablet (Coreg) 3.125 mg PO BID 10/10/22 [History Last Taken Unknown] nitroglycerin 0.4 mg sublingual tablet (Nitrostat) 0.4 mg sublingual Q5M 10/10/22 [History Last Taken Unknown] sitagliptin phosphate 100 mg tablet (Januvia) 100 mg PO DAILY 10/10/22 [History Last Taken Unknown] Allergy/AdvReac Type Severity Reaction Status Date / Time acetaminophen [From Vicodin] Allergy Other Verified 11/14/22 23:15 celecoxib [From Celebrex] Allergy Unknown Verified 11/14/22 23:15 codeine Allergy Unknown Verified 11/14/22 23:15 hydrocodone [From Vicodin] Allergy Other Verified 11/14/22 23:15 morphine Allergy Other Verified 11/14/22 23:15 niacin Allergy Unknown Verified 11/14/22 23:15 Penicillins Allergy Unknown Verified 11/14/22 23:15 prednisone Allergy Unknown Verified 11/14/22 23:15 Sulfa (Sulfonamide Allergy Unknown Verified 11/14/22 23:15 Antibiotics) Family History Mother Asthma Father Heart disease Hypertension Arthritis Surgical History History of cholecystectomy History of laparoscopic cholecystectomy History of nasal surgery History of surgery on left wrist History of tonsillectomy history ORIF left wrist History repair broken nose Social History Smoking Status: Never smoker alcohol intake: never substance use type: does not use ROS ROS ED Constitutional Constitutional ED: Denies chills or fever(s) Eyes Eyes: Denies change in vision ENT ENT ED: Denies sore throat Cardiovascular Cardiovascular: Denies chest pain Respiratory/Chest Respiratory/Chest: Denies cough or dyspnea Gastrointestinal Gastrointestinal: Denies abdominal pain, diarrhea, nausea or vomiting Genitourinary Genitourinary ED: Denies dysuria Musculoskeletal Musculoskeletal: Reports arthralgias and other Details: Positive right shoulder and right elbow pain as well as right knee pain ; Denies back pain or neck pain Integumentary Reports Abrasions Neurologic Neurologic: Denies headache(s) or paresthesias Hematologic/Lymphatic Hematologic/Lymphatic: Denies easy bleeding or easy bruising EXAM Physical Exam Const Vital Signs: 11/14/22 23:09 11/14/22 23:24 Temperature 96.8 F L Temperature Source Temporal Pulse Rate 74 Respiratory Rate 15 Respiratory Effort Normal Non-Labored Respiratory Depth Normal Respiratory Pattern Normal Blood Pressure 183/91 H Blood Pressure Mean 121 Pulse Ox 95 Oxygen Delivery Method Room Air Room Air Positive well nourished, well developed and obese General Appearance ED: well developed Nutritional Appearance: obese HEENT HEENT Narrative: Normocephalic atraumatic No signs of depressed or basilar skull fracture Eyes PERRL and EOMs intact bilaterally Neck supple Neck Narrative: No bony deformity or step-off of the cervical spine no midline pain with palpation Chest Wall palpation of chest normal Chest Narrative: No bony deformity or crepitance Resp normal respiratory effort and clear to auscultation bilaterally Cardio regular rate and regular rhythm GI normal to inspection, nondistended, normoactive bowel sounds, non-tender, non-distended and no masses GI Narrative: No voluntary guarding or rigidity no pulsatile mass or fluid wave Auscultation: normoactive bowel sounds Palpation: soft Back/Spine Back/Spine Narrative: No bony deformity or step-off of the thoracic or lumbar spine no midline pain onpalpation Extremity Extremity Narrative: Pelvis is stable there is no shortening or external rotation of either lower extremity Patient has a superficial abrasion to the anterior of the right knee with small amount of soft tissue swelling. No bony deformity or joint effusion noted. Patellar tendon is intact and knee ligaments are stable Right upper extremity is neurovascular intact. No obvious bony deformity or joint effusion or sulcus sign noted. Active and passive range of motion is decreased secondary to pain. There is pain with palpation over top the proximal mid humerus. Patient also reports pain in the elbow but there is no soft tissueswelling and full flexion extension at the joint. Remainder of the exam is normal Neuro oriented x3 and CN's II-XII intact bilaterally Sensorium / Orientation: alert Psych mental status grossly normal Skin Skin Narrative: Superficial abrasion over top the right knee as documented above MDM MDM MDM Narrative Medical decision making narrative: Patient presented to the ER after a mechanical fall and therefore there is no need for cardiac or syncope work-up. She did not strike her head or have loss of consciousness nor does she take blood thinners or have a history of bleeding disorders so concern for subarachnoid versus subdural or epidural hematoma is low and I feel no need for head CT. She states she was only on the ground for afew minutes and therefore concern for rhabdomyolysis is also low and I feel no need for blood work. With concern for fracture versus dislocation or subluxation imaging studies were obtained. All imaging studies were negative. Secondary to this patient is safe for discharge and can treat her contusions symptomatically History & Record Review Discussion w/independent historian: Patient Radiography Diagnostic Testing: Clinical Impression(s) from Imaging Studies Elbow X-Ray 11/14/22 23:29 IMPRESSION: No acute fracture or dislocation. Electronically Signed: Gary Ha MD at 0:34 EDT , Knee X-Ray 11/14/22 23:29 IMPRESSION: Degenerative changes of the knee. No acute fracture or dislocation. Electronically Signed: Gary Ha MD at 0:37 EDT , Shoulder X-Ray 11/14/22 23:29 IMPRESSION: No acute fracture, dislocation or AC joint widening. Electronically Signed: Gary Ha MD at 0:39 EDT , X-rays of the right knee right shoulder and right elbow as interpreted by the emergency medicine physician reveals no acute fracture or dislocation but just age-related degenerative changes Discharge Plan Triage Chief Complaint: Fall ED Provider: Danny Bhardwaj Dx/Rx/DC Orders Clinical Impression: Contusion of multiple sites, Accidental fall, Abrasion of knee, right Instructions: Bruises (Contusions), ED Abrasion Prescriptions: No Action metformin 500 mg tablet 500 mg PO UD Patient Comments: diabetes Rx Instructions: 2 TABS AT BREAKFAST; 1 TAB AT LUNCH; AND 2 TABS AT DINNER. glimepiride 4 mg tablet 4 mg PO BID Patient Comments: blood sugar furosemide 80 MG tablet 80 mg PO DAILY PRN (Reason: edema) acetaminophen [Tylenol Extra Strength] 500 MG tablet 1,000 mg PO PRN PRN (Reason: Pain) ibuprofen 200 MG tablet 200 mg PO PRN PRN (Reason: Pain) metoprolol succinate [Toprol XL] 25 MG tablet extended release 24 hr 25 mg PO DAILY hydrochlorothiazide 25 MG tablet 25 mg PO DAILY Patient Comments: blood pressure/diuretic cholecalciferol (vitamin D3) 2,000 UNIT capsule 4,000 unit PO DAILY aspirin [Jalen Chewable Aspirin] 81 mg tablet,chewable 1 tab PO DAILY nitroglycerin [Nitrostat] 0.4 mg tablet, sublingual 0.4 mg sublingual Q5M Rx Instructions: do not exceed 3 doses per episode amlodipine [Norvasc] 2.5 mg tablet 2.5 mg PO DAILY carvedilol [Coreg] 3.125 mg tablet 3.125 mg PO BID Rx Instructions: must administer with a meal/food Januvia 100 mg tablet 100 mg PO DAILY Primary Care Provider: Arturo Amaya Referrals: Arturo Amaya MD [Primary Care Provider] - Activity Restrictions/Additional Instructions: Your x-ray showed no signs of fracture or dislocation and therefore take Tylenoland/or Motrin for pain control and stay active you may also use [id number] such as IcyHot or lidocaine patches to help with pain and return to the ER should you have any further concerns Disposition Disposition: Home, Self Care What to do if you have Problems For any increased pain, shortness of breath, bleeding, nausea or vomiting, chestpain, or any unexpected problems, contact your Primary Care Provider. Call [facility] ([phone]) or report to the closest Emergency Room. Call 911 if necessary. 11/15/22 0109 <Electronically signed by Danny Bhardwaj DO> Cosigner Signature (if applicable): CC: Dr. Arturo Amaya MD ~ Signed [facility] Work Phone: [phone] 144-256008-01-2023 History and physical note Author Eliezer Iglesias [facility] October 31, 2022 3:04pm Note Date/Time October 31, 2022 1:3 8pm [facility] [address] [place] [address] H&P Exam - Wound Care 10/31/22 1332 MR#: [id number] Acct: [id number] Name: MARCI MARIE Rep #:[id number] : 1940 82 From: Eliezer Mai PCP: Dr. Arturo Amaya MD Status:REG RCR Location: ADDENDUM by Dr. Eliezer Iglesias MD on 10/31/22 at 1504 Addendum The patient's recent arterial study revealed an irregular cardiac rhythm. This has been made known to the patient. 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 Design Editor in this regard. 10/31/22 1504<Electronically signed by Eliezer Iglesias MD> Cosigner Signature (if applicable): cc: ~* Signed History of Present Illness Date of Service: 10/31/22 Chief Complaint: Swelling, edema, and venous stasis dermatitis of the lower extremities bilaterally History of Wound: This is an 82-year-old female who presented with chronic venous stasis dermatitis in the lower extremities bilaterally. This had been associated with bilateral swelling and edema in her lower extremities which is chronic in nature. At the time of her initial presentation, the patient had no open wounds or ulcerations. She was recently treated for cellulitis with courses of oral antibiotics, including Keflex and doxycycline. The patient is not active. She is obese. She sleeps in an upright position in a chair. She denies a history of thrombophlebitis. She indicates that she has frequent episodes of cellulitis in her lower extremities. [facility] Medical History Acute kidney injury Aortic stenosis Atrial fibrillation Chronic venous insufficiency Diabetes mellitus Diabetic neuropathy Diaphragmatic hernia Dyslipidemia Edema of left lower extremity Edema of left lower extremity due to peripheral venous insufficiency Edema of right lower extremity Edema of right lower extremity due to peripheral venous insufficiency Esophageal spasm Esophageal stricture Gastroenteritis GERD (gastroesophageal reflux disease) Hearing deficit Hiatal hernia History of basal cell cancer History of esophageal dilatation HTN (hypertension) Hyperlipidemia Hypokalemia Metabolic acidosis Obesity (BMI 35.0-39.9 without comorbidity) Osteoporosis Overactive bladder Swelling of left lower extremity Swelling of right lower extremity Thrombocytopenia Tinnitus Venous stasis dermatitis Home Medications glimepiride 4 mg tablet 4 mg PO BID DIABETES 07/05/17 [History Last Taken 04/01/18] metformin 500 mg tablet 500 mg PO UD diabetes 07/05/17 [History Last Taken 04/01/18] furosemide 80 mg tablet 80 mg PO DAILY PRN edema 02/01/18 [History Last Taken Unknown] acetaminophen 500 mg tablet (Tylenol Extra Strength) 1,000 mg PO PRN PRN Pain 04/01/18 [History Last Taken 03/31/18] hydrochlorothiazide 25 mg tablet 25 mg PO DAILY diuretic 04/01/18 [History Last Taken Unknown] ibuprofen 200 mg tablet 200 mg PO PRN PRN Pain 04/01/18 [History Last Taken 04/01/18] metoprolol succinate 25 mg tablet,extended release 24 hr (Toprol XL) 25 mg PO DAILY blood pressure 04/01/18 [History Last Taken Unknown] cholecalciferol (vitamin D3) 50 mcg (2,000 unit) capsule 4,000 unit PO DAILY 01/11/20 [History Last Taken Unknown] amlodipine 2.5 mg tablet (Norvasc) 2.5 mg PO DAILY 10/10/22 [History Last Taken Unknown] aspirin 81 mg chewable tablet (Jalen Chewable Low Dose Aspirin) 1 tab PO DAILY 10/10/22 [History Last Taken Unknown] carvedilol 3.125 mg tablet (Coreg) 3.125 mg PO BID 10/10/22 [History Last Taken Unknown] nitroglycerin 0.4 mg sublingual tablet (Nitrostat) 0.4 mg sublingual Q5M 10/10/22 [History Last Taken Unknown] sitagliptin phosphate 100 mg tablet (Januvia) 100 mg PO DAILY 10/10/22 [History Last Taken Unknown] Allergy/AdvReac Type Severity Reaction Status Date / Time acetaminophen [From Vicodin] Allergy Other Verified 10/10/22 13:58 celecoxib [From Celebrex] Allergy Unknown Verified 10/10/22 13:58 codeine Allergy Unknown Verified 10/10/22 13:58 hydrocodone [From Vicodin] Allergy Other Verified 10/10/22 13:58 morphine Allergy Other Verified 10/10/22 13:58 niacin Allergy Unknown Verified 10/10/22 13:58 Penicillins Allergy Unknown Verified 10/10/22 13:58 prednisone Allergy Unknown Verified 10/10/22 13:58 Sulfa (Sulfonamide Allergy Unknown Verified 10/10/22 13:58 Antibiotics) Family History Mother Asthma Father Heart disease Hypertension Arthritis Surgical History History of cholecystectomy History of laparoscopic cholecystectomy History of nasal surgery History of surgery on left wrist History of tonsillectomy history ORIF left wrist History repair broken nose Social History Smoking Status: Never smoker alcohol intake: never substance use type: does not use Vital Signs Vital Signs Vital Signs: 10/31/22 13:12 10/31/22 00:27 Temperature 97 F L 97.5 F L Temperature Source Temporal Pulse Rate 97 94 Respiratory Rate 22 H 20 H Blood Pressure 135/71 H 185/80 H Blood Pressure Mean 92 115 Blood Pressure Source Monitor Blood Pressure Location Left Arm Weight Weight: 250 lb 2.49 oz Body Mass Index (BMI) 39.7 Physical Exam Const alert, oriented x3, no apparent distress and well nourished Constitutional Narrative: The patient is obese. A hearing deficit is easily discernible in conversation with the patient. General Appearance: cooperative, comfortable and well developed Orientation / Consciousness: awake, oriented to person, oriented to place and oriented to time HEENT normocephalic and head/scalp atraumatic Head and Scalp: normal to inspection, normocephalic and atraumatic External Ear: external ears normal Eyes PERRL and EOMs intact bilaterally General Eye: normal appearance of both eyes Resp normal respiratory effort, normal air movement, no retractions and no use of accessory muscles Effort and Inspection: able to speak in complete sentences Extremity no calf tenderness General Extremity: Negative for clubbing or cyanosis Skin Wound Narrative: Minimal swelling and edema are noted in the patient's lower extremities bilaterally. There has been significant improvement. Mild venous stasis dermatitis is noted in the gaiter areas bilaterally, though with significant improvement. There is mild erythema, appearing to be inflammatory in nature, rather than cellulitic. There are no darrel open wounds or ulcerations. Neuro oriented x3, CN's II-XII intact bilaterally and moves all extremities Sensorium / Orientation: awake, alert, oriented to person, oriented to place andoriented to time Psych Appearance: grossly normal and appropriate Attitude: calm Activity / Motor Behavior: appropriate eye contact Speech: normal speech Mood & Affect: euthymic mood Thought Process: normal thought process Thought Content: normal thought content Attention / Concentration: attention grossly intact Debridement Note Debridement Note No debridement was completed: No debridement was completed today (There are no open wounds or ulcerations.) Post-Debridement Measurements and Additional Note: Post-Debridement Measurements/Treatment WC - Nurse 1 - General Ulcer Assessment Start: 10/31/22 13:11 Freq: Status: Active Protocol: WC.LOWISHANT Activity Type Activity Date Activity User E-sign Co-sign Detail Recorded Client Recorded Date Recorded By Document 10/31/22 13:12 DL [id number] 10/31/22 13:16 DL 10/31/22 13:12 WC - Today's Visit Information Type of service Follow-up Visit (Physician/DIESEL MAINTENANCE TECHNICIAN ) Arrival Mode Ambulatory,Cane Transfer Assistance None Patient Identification Verified (Name & Yes ) Patient Requires Transmission-Based No Precautions Height and Weight Body Mass Index (BMI) 39.7 BMI Classification Obese Vital Signs Temperature (97.8 F-99.1 F) 97 F L Temperature Source Temporal Pulse Rate (60-100) 97 Pulse Location Monitor Respiratory Rate (12-18) 22 H Respiratory rate source Observation Blood Pressure (90/60-120/80) 135/71 H Blood Pressure Mean 92 Source Monitor History Since Last Visit- (Skip if this is Patient's initial visit) Have you changed medications since your No last visit? Any new allergies or adverse reactions No Had a fall/change in ADL's that may No increase risk of falls Signs or symptoms of abuse and/or No neglect since last visit Have you been in the hospital since your No last visit? Has dressing in place as prescribed Yes Has compression in place as prescribed Yes Has offloadiing in place as prescribed N/A Experienced any changes in pain level or No management Pain Scale: 0-10 Numeric Is Patient Pain Free? Yes WC - Nurse 1 - General Ulcer Measurement Start: 10/31/22 13:11 Freq: Status: Active Protocol: Activity Type Activity Date Activity User E-sign Co-sign Detail Recorded Client Recorded Date Recorded By Document 10/31/22 13:12 DL [id number] 10/31/22 13:16 DL 10/31/22 13:12 Wound Center Nurse 1 #1 -Wound Comment(s) edema only Right Calf (cm) 40 Right Ankle (cm) 22.8 Left Calf (cm) 43 Left Ankle (cm) 23.7 Assessment/Plan Assessment/Plan (1) Venous stasis dermatitis: CODE(S): I87.2 - Venous insufficiency (chronic) (peripheral) QUALIFIERS: Laterality: bilateral Qualified Code(s): I87.2 - Venous insufficiency (chronic) (peripheral) (2) Chronic venous insufficiency: CODE(S): I87.2 - Venous insufficiency (chronic) (peripheral) (3) Swelling of left lower extremity: CODE(S): M79.89 - Other specified soft tissue disorders (4) Swelling of right lower extremity: CODE(S): M79.89 - Other specified soft tissue disorders (5) Edema of left lower extremity: CODE(S): R60.0 - Localized edema (6) Edema of right lower extremity: CODE(S): R60.0 - Localized edema (7) Diabetes mellitus: CODE(S): E11.9 - Type 2 diabetes mellitus without complications QUALIFIERS: Diabetes mellitus type: type 2 Diabetes mellitus complication status: with unspecified complications Diabetes mellitus long terminsulin use: without chcf use Qualified Code(s): E11.8 - Type 2 diabetes mellitus with unspecified complications (8) Edema of left lower extremity due to peripheral venous insufficiency: CODE(S): I87.2 - Venous insufficiency (chronic) (peripheral) (9) Edema of right lower extremity due to peripheral venous insufficiency: CODE(S): I87.2 - Venous insufficiency (chronic) (peripheral) (10) GERD (gastroesophageal reflux disease): CODE(S): K21.9 - Gastro-esophageal reflux disease without esophagitis QUALIFIERS: Esophagitis presence: esophagitis presence not specified Qualified Code(s): K21.9 - Gastro-esophageal reflux disease without esophagitis (11) HTN (hypertension): CODE(S): I10 - Essential (primary) hypertension QUALIFIERS: Hypertension type: unspecified secondary hypertension Qualified Code(s): I15.9 - Secondary hypertension, unspecified; I15 - Secondary hypertension (12) Hyperlipidemia: CODE(S): E78.5 - Hyperlipidemia, unspecified (13) Hiatal hernia: CODE(S): K44.9 - Diaphragmatic hernia without obstruction or gangrene (14) Aortic stenosis: CODE(S): I35.0 - Nonrheumatic aortic (valve) stenosis (15) Diabetic neuropathy: CODE(S): E11.40 - Type 2 diabetes mellitus with diabetic neuropathy, unspecified (16) Diaphragmatic hernia: CODE(S): K44.9 - Diaphragmatic hernia without obstruction or gangrene (17) History of basal cell cancer: CODE(S): Z85.828 - Personal history of other malignant neoplasm of skin (18) Tinnitus: CODE(S): H93.19 - Tinnitus, unspecified ear (19) Hearing deficit: CODE(S): H91.90 - Unspecified hearing loss, unspecified ear (20) Esophageal stricture: CODE(S): K22.2 - Esophageal obstruction (21) Overactive bladder: CODE(S): N32.81 - Overactive bladder (22) Atrial fibrillation: CODE(S): I48.91 - Unspecified atrial fibrillation (23) Obesity (BMI 35.0-39.9 without comorbidity): CODE(S): E66.9 - Obesity, unspecified (24) History of cholecystectomy: CODE(S): Z90.49 - Acquired absence of other specified parts of digestive tract (25) History of surgery on left wrist: CODE(S): Z98.890 - Other specified postprocedural states (26) History of nasal surgery: CODE(S): Z98.890 - Other specified postprocedural states (27) History of tonsillectomy: CODE(S): Z90.89 - Acquired absence of other organs (28) History of esophageal dilatation: CODE(S): Z98.890 - Other specified postprocedural states PLAN: Plan This is a morbidly obese diabetic female who presented with stigmata of chronic venous disease. She is noted to have swelling and edema in her lower extremities bilaterally, associated with venous stasis dermatitis bilaterally inthe gaiter areas. The patient has a habit of sleeping in a chair at night. Sheis not very active. She is morbidly obese. She sits a great deal of each day. We have discussed the implementation of conservative treatment measures relativeto her chronic venous disease. These are to include leg elevation, both at night and during daytime hours. She has been encouraged to sleep on a flat surface at night. Leg elevation is to be to heart level, or higher, is much as possible. Prolonged idle sitting has been discouraged. Activity has been encouraged, though the patient is unlikely to enhance her activity level to any significant degree. Weight loss has been recommended. Optimization of the patient's glycemic control has been recommended. Her hemoglobin A1c earlier today was 8.8. We are to continue the use of compression to the lower extremities bilaterally using 3M 2 layer compression wraps. These will be changed twice weekly. A noninvasive lower extremity arterial study has been performed recently, the results of which revealed no significant arterial occlusive disease. The patient is to return in 1 week for reassessment. It is anticipated that the patient will be discharged soon, likely following her next visit, anticipating that she will be prescribed graduated compression stockings of 20 to 30 mmHg compression, to be worn on a daily basis. The patient has stated My legs have not looked this good for a long, long time. Total time: 25 minutes 10/31/22 1338 <Electronically signed by Eliezer Iglesias MD> Cosigner Signature (if applicable): CC: ~ Signed [facility] Work Phone: [phone] 806-115307-19-2023 History of Present illness Narrative* She [place] LPN - 10/18/2022 10:05 AM EDT Scan on 10/17/2022 7:33 PM by Provider, External, PAIanC: Miscellaneous [facility] History and physical note Author Eliezer Iglesias [facility] October 17, 2022 2:03pm Note Date/Time October 17, 2022 2:03 pm [facility] [address] [place] [id number] H&P Exam - Wound Care 10/17/22 1357 MR#: [id number] Acct: [id number] Name: MARCI MARIE Rep #:[id number] : 1940 82 From: Eliezer Mai PCP: Dr. Arturo Amaya MD Status:REG R Location: History of Present Illness Date of Service: 10/17/22 Chief Complaint: Swelling, edema, and venous stasis dermatitis of the lower extremities bilaterally History of Wound: This is an 82-year-old female who presented with chronic venous stasis dermatitis in the lower extremities bilaterally. This had been associated with bilateral swelling and edema in her lower extremities which is chronic in nature. At the time of her initial presentation, the patient had no open wounds or ulcerations. She was recently treated for cellulitis with courses of oral antibiotics, including Keflex and doxycycline. The patient is not active. She is obese. She sleeps in an upright position in a chair. She denies a history of thrombophlebitis. She indicates that she has frequent episodes of cellulitis in her lower extremities. [facility] Medical History Acute kidney injury Aortic stenosis Atrial fibrillation Chronic venous insufficiency Diabetes mellitus Diabetic neuropathy Diaphragmatic hernia Dyslipidemia Edema of left lower extremity Edema of left lower extremity due to peripheral venous insufficiency Edema of right lower extremity Edema of right lower extremity due to peripheral venous insufficiency Esophageal spasm Esophageal stricture Gastroenteritis GERD (gastroesophageal reflux disease) Hearing deficit Hiatal hernia History of basal cell cancer History of esophageal dilatation HTN (hypertension) Hyperlipidemia Hypokalemia Metabolic acidosis Obesity (BMI 35.0-39.9 without comorbidity) Osteoporosis Overactive bladder Swelling of left lower extremity Swelling of right lower extremity Thrombocytopenia Tinnitus Venous stasis dermatitis Home Medications glimepiride 4 mg tablet 4 mg PO BID DIABETES 07/05/17 [History Last Taken 04/01/18] metformin 500 mg tablet 500 mg PO UD diabetes 07/05/17 [History Last Taken 04/01/18] furosemide 80 mg tablet 80 mg PO DAILY PRN edema 02/01/18 [History Last Taken Unknown] acetaminophen 500 mg tablet (Tylenol Extra Strength) 1,000 mg PO PRN PRN Pain 04/01/18 [History Last Taken 03/31/18] hydrochlorothiazide 25 mg tablet 25 mg PO DAILY diuretic 04/01/18 [History Last Taken Unknown] ibuprofen 200 mg tablet 200 mg PO PRN PRN Pain 04/01/18 [History Last Taken 04/01/18] metoprolol succinate 25 mg tablet,extended release 24 hr (Toprol XL) 25 mg PO DAILY blood pressure 04/01/18 [History Last Taken Unknown] cholecalciferol (vitamin D3) 50 mcg (2,000 unit) capsule 4,000 unit PO DAILY 01/11/20 [History Last Taken Unknown] amlodipine 2.5 mg tablet (Norvasc) 2.5 mg PO DAILY 10/10/22 [History Last Taken Unknown] aspirin 81 mg chewable tablet (Jalen Chewable Low Dose Aspirin) 1 tab PO DAILY 10/10/22 [History Last Taken Unknown] carvedilol 3.125 mg tablet (Coreg) 3.125 mg PO BID 10/10/22 [History Last Taken Unknown] nitroglycerin 0.4 mg sublingual tablet (Nitrostat) 0.4 mg sublingual Q5M 10/10/22 [History Last Taken Unknown] sitagliptin phosphate 100 mg tablet (Januvia) 100 mg PO DAILY 10/10/22 [History Last Taken Unknown] Allergy/AdvReac Type Severity Reaction Status Date / Time acetaminophen [From Vicodin] Allergy Other Verified 10/10/22 13:58 celecoxib [From Celebrex] Allergy Unknown Verified 10/10/22 13:58 codeine Allergy Unknown Verified 10/10/22 13:58 hydrocodone [From Vicodin] Allergy Other Verified 10/10/22 13:58 morphine Allergy Other Verified 10/10/22 13:58 niacin Allergy Unknown Verified 10/10/22 13:58 Penicillins Allergy Unknown Verified 10/10/22 13:58 prednisone Allergy Unknown Verified 10/10/22 13:58 Sulfa (Sulfonamide Allergy Unknown Verified 10/10/22 13:58 Antibiotics) Family History Mother Asthma Father Heart disease Hypertension Arthritis Surgical History History of cholecystectomy History of laparoscopic cholecystectomy History of nasal surgery History of surgery on left wrist History of tonsillectomy history ORIF left wrist History repair broken nose Social History Smoking Status: Never smoker alcohol intake: never substance use type: does not use Vital Signs Vital Signs Vital Signs: 10/17/22 13:31 Temperature 96.9 F L Temperature Source Temporal Pulse Rate 85 Respiratory Rate 22 H Blood Pressure 147/79 H Blood Pressure Mean 101 Blood Pressure Source Monitor Blood Pressure Position Sitting Blood Pressure Location Left Arm Oxygen Delivery Method Room Air Weight Weight: 250 lb 2.49 oz Body Mass Index (BMI) 39.7 Physical Exam Const alert, oriented x3, no apparent distress and well nourished Constitutional Narrative: The patient is obese. A hearing deficit is easily discernible in conversation with the patient. General Appearance: cooperative, comfortable and well developed Orientation / Consciousness: awake, oriented to person, oriented to place and oriented to time HEENT normocephalic and head/scalp atraumatic Head and Scalp: normal to inspection, normocephalic and atraumatic External Ear: external ears normal Eyes PERRL and EOMs intact bilaterally General Eye: normal appearance of both eyes Resp normal respiratory effort, normal air movement, no retractions and no use of accessory muscles Effort and Inspection: able to speak in complete sentences Extremity no calf tenderness General Extremity: Negative for clubbing or cyanosis Skin Wound Narrative: Severe swelling and edema are noted in the patient's lower extremities bilaterally. In addition, there are stigmata of chronic venous disease, including venous stasis dermatitis and inflammatory erythema. There are no darrel open wounds or ulcerations. There is no sign of infection or cellulitis. There is slight improvement since evaluated 1 week ago. Neuro oriented x3, CN's II-XII intact bilaterally and moves all extremities Sensorium / Orientation: awake, alert, oriented to person, oriented to place andoriented to time Psych Appearance: grossly normal and appropriate Attitude: calm Activity / Motor Behavior: appropriate eye contact Speech: normal speech Mood & Affect: euthymic mood Thought Process: normal thought process Thought Content: normal thought content Attention / Concentration: attention grossly intact Debridement Note Debridement Note No debridement was completed: No debridement was completed today (There are no open wounds or ulcerations.) Post-Debridement Measurements and Additional Note: Post-Debridement Measurements/Treatment CORRINA - Nurse 1 - General Ulcer Assessment Start: 10/10/22 13:17 Freq: Status: Active Protocol: MATEO Activity Type Activity Date Activity User E-sign Co-sign Detail Recorded Client Recorded Date Recorded By Document 10/10/22 13:17 DL [id number] 10/10/22 13:35 DL Document 10/12/22 13:10 KW [id number] 10/12/22 13:12 KW Document 10/17/22 13:31 MW [id number] 10/17/22 13:33 MW 10/10/22 10/12/22 10/17/22 13:17 13:10 13:31 WC - Today's Visit Information Type of service Initial Visit Nurse-only Follow-up Visit Visit (Physician/DIESEL MAINTENANCE TECHNICIAN ) Arrival Mode Ambulatory,Cane Ambulatory Ambulatory Transfer Assistance None None Accompanied by self Patient Identification Verified (Name & Yes Yes Yes ) Patient Requires Transmission-Based No No Precautions Safety Precautions Fall Prevention Finger Stick Blood Sugar(mg/dl) (if 150 indicated): Blood Sugar Stated by Patient Height and Weight Height 5 ft 6.5 in Weight 250 lb 2.49 oz Weight in Pounds 250.2 lbs Body Mass Index (BMI) 39.7 39.7 39.7 BMI Classification Obese Obese Obese BSA - Nelson 2.21 Vital Signs Temperature (97.8 F-99.1 F) 97.1 F L 96.9 F L 96.9 F L Temperature Source Temporal Temporal Temporal Pulse Rate (60-100) 80 87 85 Pulse Location Monitor Monitor Monitor Respiratory Rate (12-18) 24 H 18 22 H Respiratory rate source Observation Observation Oxygen Delivery Method Room Air Room Air Blood Pressure (90/60-120/80) 169/87 H 141/80 H 147/79 H Blood Pressure Mean 114 100 101 Source Monitor Monitor Monitor Position Semi-Fowlers Sitting Blood Pressure Location Left Arm Left Arm History Since Last Visit- (Skip if this is Patient's initial visit) Have you changed medications since your No No last visit? Any new allergies or adverse reactions No No Had a fall/change in ADL's that may No No increase risk of falls Signs or symptoms of abuse and/or No No neglect since last visit Have you been in the hospital since your No No last visit? Has dressing in place as prescribed Yes Yes Has compression in place as prescribed Yes Yes Has offloadiing in place as prescribed N/A Experienced any changes in pain level or No management Left Footwear Regular Shoe Regular Shoe Right Footwear Regular Shoe Regular Shoe Pain Scale: 0-10 Numeric Is Patient Pain Free? Yes Yes Yes Lower Extremity Assessment/ Foot Assessment/ Toe Nail Assessment Left -Popliteal Doppler Monophasic -Posterior Tibial Palpable Yes -Posterior Tibial Doppler Monophasic -Dorsalis Pedis Palpable Yes -Extremity Color Red, Hyperpigmented, Hemosiderin -Hair Growth on Legs No -Hair Growth on Toes No -Temperature of Extremity Warm -Capillary Refill Greater than 3 Seconds -Dependent Rubor No -Blanched when Elevated No -Lipodermatosclerosis No -Other Deformity No -Prior Foot Ulcer No -Charcot Joint No -Prior Amputation No -Thick Yes -Discolored Yes -Deformed Yes -Improper Length & Hygeine Yes Right -Posterior Tibial Palpable No -Posterior Tibial Doppler Monophasic -Dorsalis Pedis Palpable No -Dorsalis Pedis Doppler Monophasic -Extremity Color Red, Hyperpigmented, Hemosiderin -Hair Growth on Legs No -Hair Growth on Toes No -Temperature of Extremity Warm -Capillary Refill Greater than 3 Seconds -Dependent Rubor No -Blanched when Elevated No -Lipodermatosclerosis No -Other Deformity No -Prior Foot Ulcer No -Charcot Joint No -Prior Amputation No -Thick Yes -Discolored Yes -Deformed Yes -Improper Length & Hygeine Yes Neuropathy Assessment Feet - Top Side and Bottom <Entered> (a) Communication Assessment Preferred language Maldivian Able to Read Yes Able to Write Yes Communication Tools None Right Hearing Abillity Hard of Hearing Left Hearing Abillity Hard of Hearing Visual Assistive Devices Glasses Teaching Assessment Preferences Verbal,Written, Demonstration Readiness To Learn Fair Willingness to Engage in Self Management Med Activies Readiness to Engage in Self Management Med Activities Anxiety Level Calm Cooperation Cooperative Perception Coherent Interest in Health Problem Asks Questions Education Importance Acknowledges Need Does Patient Smoke tobacco or other No substances Smoking Status Never smoker Is Patient Diabetic Yes Functional Assessment Recent Decline in Ability to Perform Denies Any Declines Culture/Restorationist/Ammunition 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 Ammunition Components Inspector to contact place of hinduism No (a) 1 - + WC - Nurse 1 - General Ulcer Measurement Start: 10/10/22 13:17 Freq: Status: Active Protocol: Activity Type Activity Date Activity User E-sign Co-sign Detail Recorded Client Recorded Date Recorded By Document 10/10/22 13:17 DL [id number] 10/10/22 13:35 DL Document 10/12/22 13:10 KW [id number] 10/12/22 13:12 KW Document 10/17/22 13:31 MW [id number] 10/17/22 13:33 MW 10/10/22 10/12/22 10/17/22 13:17 13:10 13:31 Wound Center Nurse 1 #1 -Combined with other wound No No -Current Size (cm) - Length 0.1 -Current Size (cm) - Width 0.1 -Current Size (cm) - Depth 0.1 -Total Square Cm 0.01 -Photo Taken No -Epithelialization Large 67-100% -Tunneling No -Undermining/Tunneling No -Circular Undermining No -Exudate Amt None Present -Granulation Amt None Present (0 %) -Slough/Fibrin No -Necrosis Amt None Present (0 %) -Texture (Marisela-wound Skin Appearance) Assessed, Localized Edema -Moisture (Marisela-wound Skin Appearance) Assessed -Color (Marisela-wound Skin Appearance) Assessed,Rubor -Temperature (Marisela-wound Skin No Abnormality Appearance) (Pt Warm) -Ulcer Cleansing Soap and Water -Foul Odor after Cleansing No Lower Limb Edema Present Yes Right Calf (cm) 42.2 38.9 38.2 Right Ankle (cm) 23.8 23.0 22.6 Left Calf (cm) 40.2 38.7 38.0 Left Ankle (cm) 23.5 25.5 23.0 WC - Nurse 3 - General Ulcer D/C NN Start: 10/10/22 13:17 Freq: Status: Active Protocol: Activity Type Activity Date Activity User E-sign Co-sign Detail Recorded Client Recorded Date Recorded By Document 10/10/22 14:09 DL [id number] 10/10/22 14:11 DL Document 10/12/22 13:12 KW [id number] 10/12/22 13:13 KW 10/10/22 10/12/22 14:09 13:12 Wound Care Center Nurse 3 cristi -Multi-Layered Wrap Application Unna Boot - Unna Boot - Bilateral ($) Bilateral ($) Treatment Response Procedure Tolerated Well Pain Scale: 0-10 Numeric Is Patient Pain Free? Yes Yes WC - Visit Discharge Discharge Condition Stable Stable Ambulatory Status Ambulatory Ambulatory Transportation Private Auto Private Auto Medication Reconcilliation completed & No provided to patient/care provider Clinical Summary of Care Provided Yes Notes: Dressing applied per Zo Santos today. Assessment/Plan Assessment/Plan (1) Venous stasis dermatitis: CODE(S): I87.2 - Venous insufficiency (chronic) (peripheral) QUALIFIERS: Laterality: bilateral Qualified Code(s): I87.2 - Venous insufficiency (chronic) (peripheral) (2) Chronic venous insufficiency: CODE(S): I87.2 - Venous insufficiency (chronic) (peripheral) (3) Swelling of left lower extremity: CODE(S): M79.89 - Other specified soft tissue disorders (4) Swelling of right lower extremity: CODE(S): M79.89 - Other specified soft tissue disorders (5) Edema of left lower extremity: CODE(S): R60.0 - Localized edema (6) Edema of right lower extremity: CODE(S): R60.0 - Localized edema (7) Diabetes mellitus: CODE(S): E11.9 - Type 2 diabetes mellitus without complications QUALIFIERS: Diabetes mellitus type: type 2 Diabetes mellitus complication status: with unspecified complications Diabetes mellitus long terminsulin use: without intermediate school teacher use Qualified Code(s): E11.8 - Type 2 diabetes mellitus with unspecified complications (8) Edema of left lower extremity due to peripheral venous insufficiency: CODE(S): I87.2 - Venous insufficiency (chronic) (peripheral) (9) Edema of right lower extremity due to peripheral venous insufficiency: CODE(S): I87.2 - Venous insufficiency (chronic) (peripheral) (10) GERD (gastroesophageal reflux disease): CODE(S): K21.9 - Gastro-esophageal reflux disease without esophagitis QUALIFIERS: Esophagitis presence: esophagitis presence not specified Qualified Code(s): K21.9 - Gastro-esophageal reflux disease without esophagitis (11) HTN (hypertension): CODE(S): I10 - Essential (primary) hypertension QUALIFIERS: Hypertension type: unspecified secondary hypertension Qualified Code(s): I15.9 - Secondary hypertension, unspecified; I15 - Secondary hypertension (12) Hyperlipidemia: CODE(S): E78.5 - Hyperlipidemia, unspecified (13) Hiatal hernia: CODE(S): K44.9 - Diaphragmatic hernia without obstruction or gangrene (14) Aortic stenosis: CODE(S): I35.0 - Nonrheumatic aortic (valve) stenosis (15) Diabetic neuropathy: CODE(S): E11.40 - Type 2 diabetes mellitus with diabetic neuropathy, unspecified (16) Diaphragmatic hernia: CODE(S): K44.9 - Diaphragmatic hernia without obstruction or gangrene (17) History of basal cell cancer: CODE(S): Z85.828 - Personal history of other malignant neoplasm of skin (18) Tinnitus: CODE(S): H93.19 - Tinnitus, unspecified ear (19) Hearing deficit: CODE(S): H91.90 - Unspecified hearing loss, unspecified ear (20) Esophageal stricture: CODE(S): K22.2 - Esophageal obstruction (21) Overactive bladder: CODE(S): N32.81 - Overactive bladder (22) Atrial fibrillation: CODE(S): I48.91 - Unspecified atrial fibrillation (23) Obesity (BMI 35.0-39.9 without comorbidity): CODE(S): E66.9 - Obesity, unspecified (24) History of cholecystectomy: CODE(S): Z90.49 - Acquired absence of other specified parts of digestive tract (25) History of surgery on left wrist: CODE(S): Z98.890 - Other specified postprocedural states (26) History of nasal surgery: CODE(S): Z98.890 - Other specified postprocedural states (27) History of tonsillectomy: CODE(S): Z90.89 - Acquired absence of other organs (28) History of esophageal dilatation: CODE(S): Z98.890 - Other specified postprocedural states PLAN: Plan This is a morbidly obese diabetic female who presents with stigmata of chronic venous disease. She is noted to have swelling and edema in her lower extremities bilaterally, associated with venous stasis dermatitis bilaterally inthe gaiter areas. The patient has a habit of sleeping in a chair at night. Sheis not very active. She is morbidly obese. She she sits a great deal of each day. We have discussed the implementation of conservative treatment measures relative to her chronic venous disease. These are to include leg elevation, both at night and during daytime hours. She has been encouraged to sleep on a flat surface at night. Leg elevation is to be to heart level, or higher, is much as possible. Prolonged idle sitting has been discouraged. Activity has been encouraged, though the patient is unlikely to enhance her activity level toany significant degree. Weight loss has been recommended. Optimization of the patient's glycemic control has been recommended. Her hemoglobin A1c earlier today was 8.8. We are to continue the use of compression to the lower extremities bilaterally using Unna boots, which will be applied today, and changed twice weekly. A noninvasive lower extremity arterial study has been performed earliertoday, the results of which revealed no significant arterial occlusive disease. The patient is to return in 2 weeks for reassessment. Total time: 24 minutes 10/17/22 1403 <Electronically signed by Eliezer Iglesias MD> Cosigner Signature (if applicable): CC: ~ Signed [facility] Work Phone: [phone] 321-442307-11-2023 History and physical note Author Eliezer Iglesias [facility] October 10, 2022 2:44pm Note Date/Time October 10, 2022 2:44 pm [facility] [address] [place] [id number] H&P Exam - Wound Care 10/10/22 1427 MR#: [id number] Acct: [id number] Name: MARCI MARIE Rep #:[id number] : [id number] 82 From: Eliezer Mai PCP: Dr. Arturo Amaya MD Status:REG RCR Location: History of Present Illness Date of Service: 10/10/22 Chief Complaint: Swelling, edema, and venous stasis dermatitis of the lower extremities bilaterally History of Wound: This is an 82-year-old female who presents with chronic venousstasis dermatitis in the lower extremities bilaterally. This has been associated with bilateral swelling and edema in her lower extremities which is chronic in nature. At the time of her initial presentation, the patient has no open wounds or ulcerations. She was recently treated for cellulitis with courses of oral antibiotics, including Keflex and doxycycline. The patient is not active. She is obese. She sleeps in an upright position in a chair. She denies a history of thrombophlebitis. She indicates that she has frequent episodes of cellulitis in her lower extremities. [facility] Medical History Acute kidney injury Aortic stenosis Atrial fibrillation Chronic venous insufficiency Diabetes mellitus Diabetic neuropathy Diaphragmatic hernia Dyslipidemia Edema of left lower extremity Edema of left lower extremity due to peripheral venous insufficiency Edema of right lower extremity Edema of right lower extremity due to peripheral venous insufficiency Esophageal spasm Esophageal stricture Gastroenteritis GERD (gastroesophageal reflux disease) Hearing deficit Hiatal hernia History of basal cell cancer History of esophageal dilatation HTN (hypertension) Hyperlipidemia Hypokalemia Metabolic acidosis Obesity (BMI 35.0-39.9 without comorbidity) Osteoporosis Overactive bladder Swelling of left lower extremity Swelling of right lower extremity Thrombocytopenia Tinnitus Venous stasis dermatitis Home Medications glimepiride 4 mg tablet 4 mg PO BID DIABETES 07/05/17 [History Last Taken 04/01/18] metformin 500 mg tablet 500 mg PO UD diabetes 07/05/17 [History Last Taken 04/01/18] furosemide 80 mg tablet 80 mg PO DAILY PRN edema 02/01/18 [History Last Taken Unknown] acetaminophen 500 mg tablet (Tylenol Extra Strength) 1,000 mg PO PRN PRN Pain 04/01/18 [History Last Taken 03/31/18] hydrochlorothiazide 25 mg tablet 25 mg PO DAILY diuretic 04/01/18 [History Last Taken Unknown] ibuprofen 200 mg tablet 200 mg PO PRN PRN Pain 04/01/18 [History Last Taken 04/01/18] metoprolol succinate 25 mg tablet,extended release 24 hr (Toprol XL) 25 mg PO DAILY blood pressure 04/01/18 [History Last Taken Unknown] cholecalciferol (vitamin D3) 50 mcg (2,000 unit) capsule 4,000 unit PO DAILY 01/11/20 [History Last Taken Unknown] amlodipine 2.5 mg tablet (Norvasc) 2.5 mg PO DAILY 10/10/22 [History Last Taken Unknown] aspirin 81 mg chewable tablet (Jalen Chewable Low Dose Aspirin) 1 tab PO DAILY 10/10/22 [History Last Taken Unknown] carvedilol 3.125 mg tablet (Coreg) 3.125 mg PO BID 10/10/22 [History Last Taken Unknown] nitroglycerin 0.4 mg sublingual tablet (Nitrostat) 0.4 mg sublingual Q5M 10/10/22 [History Last Taken Unknown] sitagliptin phosphate 100 mg tablet (Januvia) 100 mg PO DAILY 10/10/22 [History Last Taken Unknown] Allergy/AdvReac Type Severity Reaction Status Date / Time acetaminophen [From Vicodin] Allergy Other Verified 10/10/22 13:58 celecoxib [From Celebrex] Allergy Unknown Verified 10/10/22 13:58 codeine Allergy Unknown Verified 10/10/22 13:58 hydrocodone [From Vicodin] Allergy Other Verified 10/10/22 13:58 morphine Allergy Other Verified 10/10/22 13:58 niacin Allergy Unknown Verified 10/10/22 13:58 Penicillins Allergy Unknown Verified 10/10/22 13:58 prednisone Allergy Unknown Verified 10/10/22 13:58 Sulfa (Sulfonamide Allergy Unknown Verified 10/10/22 13:58 Antibiotics) Family History Mother Asthma Father Heart disease Hypertension Arthritis Surgical History History of cholecystectomy History of laparoscopic cholecystectomy History of nasal surgery History of surgery on left wrist History of tonsillectomy history ORIF left wrist History repair broken nose Social History Smoking Status: Never smoker alcohol intake: never substance use type: does not use Vital Signs Vital Signs Vital Signs: 10/10/22 13:17 Temperature 97.1 F L Temperature Source Temporal Pulse Rate 80 Respiratory Rate 24 H Blood Pressure 169/87 H Blood Pressure Mean 114 Blood Pressure Source Monitor Weight Weight: 250 lb 2.49 oz Body Mass Index (BMI) 39.7 Physical Exam Const alert, oriented x3, no apparent distress and well nourished Constitutional Narrative: The patient is obese. A hearing deficit is easily discernible in conversation with the patient. General Appearance: cooperative, comfortable and well developed Orientation / Consciousness: awake, oriented to person, oriented to place and oriented to time HEENT normocephalic and head/scalp atraumatic Head and Scalp: normal to inspection, normocephalic and atraumatic External Ear: external ears normal Eyes PERRL and EOMs intact bilaterally General Eye: normal appearance of both eyes Resp normal respiratory effort, normal air movement, no retractions and no use of accessory muscles Effort and Inspection: able to speak in complete sentences Extremity no calf tenderness General Extremity: Negative for clubbing or cyanosis Skin Wound Narrative: Severe swelling and edema are noted in the patient's lower extremities bilaterally. In addition, there are stigmata of chronic venous disease, including venous stasis dermatitis and inflammatory erythema. There are no darrel open wounds or ulcerations. There is no sign of infection or cellulitis. Neuro oriented x3, CN's II-XII intact bilaterally and moves all extremities Sensorium / Orientation: awake, alert, oriented to person, oriented to place andoriented to time Psych Appearance: grossly normal and appropriate Attitude: calm Activity / Motor Behavior: appropriate eye contact Speech: normal speech Mood & Affect: euthymic mood Thought Process: normal thought process Thought Content: normal thought content Attention / Concentration: attention grossly intact Debridement Note Debridement Note No debridement was completed: No debridement was completed today (There are no open wounds or ulcerations.) Post-Debridement Measurements and Additional Note: Post-Debridement Measurements/Treatment - Nurse 1 - General Ulcer Assessment Start: 10/10/22 13:17 Freq: Status: Active Protocol: [email or web address].LEI Activity Type Activity Date Activity User E-sign Co-sign Detail Recorded Client Recorded Date Recorded By Document 10/10/22 13:17 DL [id number] 10/10/22 13:35 DL 10/10/22 13:17 - Today's Visit Information Type of service Initial Visit Arrival Mode Ambulatory,Cane Transfer Assistance None Patient Identification Verified (Name & Yes ) Patient Requires Transmission-Based No Precautions Height and Weight Height 5 ft 6.5 in Weight 250 lb 2.49 oz Weight in Pounds 250.2 lbs Body Mass Index (BMI) 39.7 BMI Classification Obese BSA - Nelson 2.21 Vital Signs Temperature (97.8 F-99.1 F) 97.1 F L Temperature Source Temporal Pulse Rate (60-100) 80 Pulse Location Monitor Respiratory Rate (12-18) 24 H Blood Pressure (90/60-120/80) 169/87 H Blood Pressure Mean 114 Source Monitor Pain Scale: 0-10 Numeric Is Patient Pain Free? Yes Lower Extremity Assessment/ Foot Assessment/ Toe Nail Assessment Left -Popliteal Doppler Monophasic -Posterior Tibial Palpable Yes -Posterior Tibial Doppler Monophasic -Dorsalis Pedis Palpable Yes -Extremity Color Red, Hyperpigmented, Hemosiderin -Hair Growth on Legs No -Hair Growth on Toes No -Temperature of Extremity Warm -Capillary Refill Greater than 3 Seconds -Dependent Rubor No -Blanched when Elevated No -Lipodermatosclerosis No -Other Deformity No -Prior Foot Ulcer No -Charcot Joint No -Prior Amputation No -Thick Yes -Discolored Yes -Deformed Yes -Improper Length & Hygeine Yes Right -Posterior Tibial Palpable No -Posterior Tibial Doppler Monophasic -Dorsalis Pedis Palpable No -Dorsalis Pedis Doppler Monophasic -Extremity Color Red, Hyperpigmented, Hemosiderin -Hair Growth on Legs No -Hair Growth on Toes No -Temperature of Extremity Warm -Capillary Refill Greater than 3 Seconds -Dependent Rubor No -Blanched when Elevated No -Lipodermatosclerosis No -Other Deformity No -Prior Foot Ulcer No -Charcot Joint No -Prior Amputation No -Thick Yes -Discolored Yes -Deformed Yes -Improper Length & Hygeine Yes Neuropathy Assessment Feet - Top Side and Bottom <Entered> (a) Communication Assessment Preferred language Maldivian Able to Read Yes Able to Write Yes Communication Tools None Right Hearing Abillity Hard of Hearing Left Hearing Abillity Hard of Hearing Visual Assistive Devices Glasses Teaching Assessment Preferences Verbal,Written, Demonstration Readiness To Learn Fair Willingness to Engage in Self Management Med Activies Readiness to Engage in Self Management Med Activities Anxiety Level Calm Cooperation Cooperative Perception Coherent Interest in Health Problem Asks Questions Education Importance Acknowledges Need Does Patient Smoke tobacco or other No substances Smoking Status Never smoker Is Patient Diabetic Yes Functional Assessment Recent Decline in Ability to Perform Denies Any Declines Culture/Restorationist/Ammunition 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 Ammunition Components Inspector to contact place of hinduism No (a) 1 - + WC - Nurse 1 - General Ulcer Measurement Start: 10/10/22 13:17 Freq: Status: Active Protocol: Activity Type Activity Date Activity User E-sign Co-sign Detail Recorded Client Recorded Date Recorded By Document 10/10/22 13:17 DL [id number] 10/10/22 13:35 DL 07/11/23 13:17 Wound Center Nurse 1 #1 -Combined with other wound No Right Calf (cm) 42.2 Right Ankle (cm) 23.8 Left Calf (cm) 40.2 Left Ankle (cm) 23.5 WC - Nurse 3 - General Ulcer D/C NN Start: 10/10/22 13:17 Freq: Status: Active Protocol: Activity Type Activity Date Activity User E-sign Co-sign Detail Recorded Client Recorded Date Recorded By Document 10/10/22 14:09 DL [id number] 10/10/22 14:11 DL 10/10/22 14:09 Wound Care Center Nurse 3 cristi -Multi-Layered Wrap Application Unna Boot - Bilateral ($) Treatment Response Procedure Tolerated Well Pain Scale: 0-10 Numeric Is Patient Pain Free? Yes WC - Visit Discharge Discharge Condition Stable Ambulatory Status Ambulatory Transportation Private Auto Notes: Dressing applied per Zo Santos today. Assessment/Plan Assessment/Plan (1) Venous stasis dermatitis: CODE(S): I87.2 - Venous insufficiency (chronic) (peripheral) QUALIFIERS: Laterality: bilateral Qualified Code(s): I87.2 - Venous insufficiency (chronic) (peripheral) (2) Chronic venous insufficiency: CODE(S): I87.2 - Venous insufficiency (chronic) (peripheral) (3) Swelling of left lower extremity: CODE(S): M79.89 - Other specified soft tissue disorders (4) Swelling of right lower extremity: CODE(S): M79.89 - Other specified soft tissue disorders (5) Edema of left lower extremity: CODE(S): R60.0 - Localized edema (6) Edema of right lower extremity: CODE(S): R60.0 - Localized edema (7) Diabetes mellitus: CODE(S): E11.9 - Type 2 diabetes mellitus without complications QUALIFIERS: Diabetes mellitus type: type 2 Diabetes mellitus complication status: with unspecified complications Diabetes mellitus long terminsulin use: without chcf use Qualified Code(s): E11.8 - Type 2 diabetes mellitus with unspecified complications (8) Edema of left lower extremity due to peripheral venous insufficiency: CODE(S): I87.2 - Venous insufficiency (chronic) (peripheral) (9) Edema of right lower extremity due to peripheral venous insufficiency: CODE(S): I87.2 - Venous insufficiency (chronic) (peripheral) (10) GERD (gastroesophageal reflux disease): CODE(S): K21.9 - Gastro-esophageal reflux disease without esophagitis QUALIFIERS: Esophagitis presence: esophagitis presence not specified Qualified Code(s): K21.9 - Gastro-esophageal reflux disease without esophagitis (11) HTN (hypertension): CODE(S): I10 - Essential (primary) hypertension QUALIFIERS: Hypertension type: unspecified secondary hypertension Qualified Code(s): I15.9 - Secondary hypertension, unspecified; I15 - Secondary hypertension (12) Hyperlipidemia: CODE(S): E78.5 - Hyperlipidemia, unspecified (13) Hiatal hernia: CODE(S): K44.9 - Diaphragmatic hernia without obstruction or gangrene (14) Aortic stenosis: CODE(S): I35.0 - Nonrheumatic aortic (valve) stenosis (15) Diabetic neuropathy: CODE(S): E11.40 - Type 2 diabetes mellitus with diabetic neuropathy, unspecified (16) Diaphragmatic hernia: CODE(S): K44.9 - Diaphragmatic hernia without obstruction or gangrene (17) History of basal cell cancer: CODE(S): Z85.828 - Personal history of other malignant neoplasm of skin (18) Tinnitus: CODE(S): H93.19 - Tinnitus, unspecified ear (19) Hearing deficit: CODE(S): H91.90 - Unspecified hearing loss, unspecified ear (20) Esophageal stricture: CODE(S): K22.2 - Esophageal obstruction (21) Overactive bladder: CODE(S): N32.81 - Overactive bladder (22) Atrial fibrillation: CODE(S): I48.91 - Unspecified atrial fibrillation (23) Obesity (BMI 35.0-39.9 without comorbidity): CODE(S): E66.9 - Obesity, unspecified (24) History of cholecystectomy: CODE(S): Z90.49 - Acquired absence of other specified parts of digestive tract (25) History of surgery on left wrist: CODE(S): Z98.890 - Other specified postprocedural states (26) History of nasal surgery: CODE(S): Z98.890 - Other specified postprocedural states (27) History of tonsillectomy: CODE(S): Z90.89 - Acquired absence of other organs (28) History of esophageal dilatation: CODE(S): Z98.890 - Other specified postprocedural states PLAN: Plan This is a morbidly obese diabetic female who presents with stigmata of chronic venous disease. She is noted to have swelling and edema in her lower extremities bilaterally, associated with venous stasis dermatitis bilaterally inthe gaiter areas. The patient has a habit of sleeping in a chair at night. Sheis not very active. She is morbidly obese. She she sits a great deal of each day. We have discussed the implementation of conservative treatment measures relative to her chronic venous disease. These are to include leg elevation, both at night and during daytime hours. She has been encouraged to sleep on a flat surface at night. Leg elevation is to be to heart level, or higher, is much as possible. Prolonged idle sitting has been discouraged. Activity has been encouraged, though the patient is unlikely to enhance her activity level toany significant degree. Weight loss has been recommended. Optimization of the patient's glycemic control has been recommended. Her hemoglobin A1c earlier today was 8.8. We are to implement the use of compression to the lower extremities bilaterally using Unna boots, which will be applied today, and changed twice weekly. We are to obtain a noninvasive lower extremity arterial study, to assess the arterial circulation in the patient's lower extremities. This will serve as a guide to long-term lower extremity compression therapy. Patient is to return in 1 week for reassessment. Total time: 50 minutes 10/10/22 1444 <Electronically signed by Eliezer Iglesias MD> Cosigner Signature (if applicable): CC: ~ Signed [facility] Work Phone: [phone] Miscellaneous Notes* Telephone Encounter - Sharona Bettencourt PA-C - 09/27/2022 11:04 AM EDT The following approved medication requests have been transmitted electronically. Requested Prescriptions Signed Prescriptions Disp Refills oxybutynin (DITROPAN) 5 mg tablet 30 tablet 1 Sig: Take 0.5 tablets by mouth twice daily. Authorizing Provider: SHARONA BETTENCOURT PA-C * Telephone Encounter - Poonam Roman LPN - 09/27/2022 10:40 AM EDT Spoke with Jordin in the pharmacy. They do have the 5 mg tablets. He will cancel out the 2.5 mg orderand wait for new order. Poonam Roman LPN * Telephone Encounter - Sharona Bettencourt PA-C - 09/27/2022 10:19 AM EDT Do they have the 5mg tablet that can be cut in half easily? * Telephone Encounter - Darcie Pichardo LPN - 09/27/2022 10:12 AM EDT Jordin with [facility] called to let you know the Oxybutynin 2.5 is not available it is on back order. Please advise the pharmacy. Darcie Pichardo LPN documented in [facility] History of Present illness Narrative* Sharona Bettencourt PA-C - 09/26/2022 12:30 PM EDT Chief Complaint No chief complaint on file. HPI Marci aMrie is a 82 year old female who presents here today for recheck cellulitis. Patient was seen at twice due to leg cellulitis. Was on keflex and then doxy. Has noted some improvement in symptoms but molding machine tender and red. Wound seeps at times. Patient reports issues with urinary frequency. Incontinent at times. Bothersome and embarrassing. Patient reports last night had some dizziness in middle of the night when she got up to go to bathroom. Daughter reports that patient sometimes restricts her fluid intake due to the bladder issues. Past medical history, appointments, medications, allergies reviewed. Previous Medical History PAST MEDICAL HISTORY Diagnosis Date Acquired deformity of left toe 03/21/2021 second and third digits Adjustment disorder with depressed mood 01/19/2020 Aortic stenosis, mild 12/02/[address] 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 Hiatal hernia History of colon polyps Mixed hyperlipidemia Morbid obesity with BMI of 40.0-44.9, adult ([facility]) 06/19/2016 Multiple thyroid nodules 03/24/2021 US 03/2021: Needs yearly f/u for 5 yrs Osteopenia 04/24/2011; Start vitamin d 1,000/day and RE-CHECK 2013 Personal history of other malignant neoplasm of skin 02/26/2009 Schatzki's ring Sebaceous cyst 07/03/2017 lower anterior neck Skin cancer, basal cell 04/23/2015 nose Stricture and stenosis of esophagus egd/dilatation by Dr. Hollins; Tinnitus of both ears 12/26/2021 Due to hearing loss. Type 2 diabetes mellitus with proteinuria ([facility]) 07/07/2013 Uncontrolled type 2 diabetes mellitus with hyperglycemia ([facility]) 01/02/2020 Venous (peripheral) insufficiency 12/21/2015 Vitamin D deficiency 11/26/2015 Previous Surgical History PAST SURGICAL HISTORY Procedure Laterality Date 2D ECHO (EXEP) 12/02/2015 EF=59% mild LVH, mild MR,TR and 2D ECHO (EXEP) 02/13/2020 EF=65%, mild dilated LA, 1+ MR and CHOLECYSTECTOMY Cholecystectomy COLONOSCOPY 11/04/2018 Sessile serrated polyp, Tubullovillous adenoma. Dr. Filemon Galvan. COLONOSCOPY SCRN NOT HIGH RISK 06/10/03 upper and lower EGD 08/17/2009 Dr. Theo Hollins EGD DILATION 11/04/2018 Schatzi's Ring, mild reactive gastropathy. Dr. Filemon Galvan. ESOPHAGOGASTRODUODENOSCOPY TRANSORAL DIAGNOSTIC 06/2003 EGD EXERCISE ECG STRESS TEST 03/02/2020 negative NOSE SURGERY HX 2006 Nasal fracture repair TONSILLECTOMY AND ADENOIDECTOMY HX WRIST SURGERY HX 12/1988 Broken Left wrist surgery at [facility] - Dr. Delgado Family History FAMILY HISTORY Problem Relation Age of Onset Allergies Mother Heart Mother Asthma Mother Alzheimer's Disease Father Heart disease Father Hypertension Father Hypertension Maternal Grandmother DVT Maternal Grandmother Stroke Paternal Grandmother Stroke Paternal Grandfather Hypertension Brother Diabetes Brother Patient Allergies ALLERGIES Allergen Reactions Codeine Rash Penicillins Rash Pioglitazone Other: See Comments Increased leg edema and CHF symptoms Prednisone Rash Celebrex [Celecoxib] Unknown Niacin Rash Sulfa (Sulfonamide * Rash Current Medications Current Outpatient Medications on File Prior to Visit Medication Sig polyethylene glycol 3350 (MIRALAX) 17 gram packet Take 1 Packet by mouth once daily. Dissolve dose in 4 - 8 ounces of liquid and take as directed. lisinopril (ZESTRIL) 40 mg tablet Take 1 tablet by mouth twice daily. doxycycline (VIBRA-TABS) 100 mg tablet Take 1 tablet by mouth twice daily for 7 days. clotrimazole (LOTRIMIN) 1 % cream Apply to affected area twice daily for 7 days. hydroCHLOROthiazide 25 mg tablet Take 1 tablet by mouth once daily. metFORMIN (GLUCOPHAGE) 500 mg tablet Take by mouth. take 2 tabs w/breakfast;1 tab with lunch and TWO tabs w/ dinner SITagliptin phosphate (JANUVIA) 100 mg tablet Take 1 tablet by mouth once daily. blood sugar diagnostic (BLOOD GLUCOSE TEST) test strip Test blood sugar(s) 2 times daily. Dx: Type 2 DM - Uncontrolled E11.65 Insulin: No carvedilol (COREG) 3.125 mg tablet Take 1 tablet by mouth twice daily. glimepiride (AMARYL) 2 mg tablet Take 1 tablet by mouth daily with dinner. amLODIPine (NORVASC) 2.5 mg tablet Take 1 tablet by mouth once daily. aspirin, enteric coated (ASPIRIN, ENTERIC COATED) 81 mg EC tablet Take 81 mg by mouth once daily. Take one tablet daily nitroglycerin sublingual (NITROQUICK) 0.4 mg SL tablet Dissolve 1 tablet under the tongue as needed. FOR CHEST PAIN. IF NO RELIEF CALL 911 aspirin 325 mg tablet Take 325 mg by mouth one time only. Taken 11/15/2021 pre heart cath furosemide (LASIX) 80 mg tablet Take 0.5 tablets by mouth as needed. pimecrolimus (ELIDEL) 1 % cream Apply to affected area twice daily. lidocaine (LIDODERM) 5 % APPLY 1 PATCH TOPICALLY ONCE DAILY TO MOST PAINFUL AREA. LEAVE ON FOR 12 HOURS AND REMOVE FOR 12 HOURS. ibuprofen (MOTRIN) 200 mg tablet Take by mouth. Lancets lancets Test blood sugar(s) 2 times daily. Dx: Type 2 DM - Uncontrolled E11.65 Insulin: No omega-3 fatty acids 1,000 mg cap Take 2 capsules by mouth once daily. Cholecalciferol, Vitamin D3, 2,000 unit cap Take 3 capsules by mouth once daily. Blood Pressure Cuff - Home Use BLOOD PRESSURE CUFF FOR HOME USE. DX: LABILE BLOOD PRESSURE ACETAMINOPHEN (TYLENOL ARTHRITIS ORAL) Take 1 tablet by mouth every 6 hours. No current facility-administered medications on file prior to visit. Social History Social History Tobacco Use Smoking status: Never Smokeless tobacco: Never Tobacco comments: 2nd hand Vaping Use Vaping Use: Never used Substance Use Topics Alcohol use: No Drug use: No Review of Symptoms REVIEW OF SYSTEMS See hpi EXAM: BP 120/80 (BP Site: Left Arm, BP Position: Sitting, BP Cuff Size: Large Adult) Pulse (!) 54 Temp 36.8 C (98.2 F) Resp 20 Wt 113.4 kg (250 lb) LMP (LMP Unknown) BMI 40.35 kg/m General Appearance: Well appearing, alert, in no acute distress, well-hydrated, well nourished. andObese. Extremities: leg swelling bilaterally. +serous fluid seeping from healing wound on left lateral leg. Mild warmth noted with minimal erythema. Tender to pressure.. Health Maintenance List BP CONTROLLED (<130/80) Never done DILATED RETINAL EXAM due on 08/09/2018 DIABETIC FOOT EXAM due on 03/21/2022 SHINGRIX VACCINE(1 of 2) due on 04/11/2023 HBA1C due on 10/09/2022 LDL CHOLESTEROL due on 04/11/2023 ANNUAL PCP TEAM CHRONIC DISEASE VISIT due on 04/11/2023 DTAP,TDAP,TD(2 - Td or Tdap) due on 12/27/2025 BONE DENSITY Completed INFLUENZA Completed DEPRESSION ASSESSMENT Completed COVID-19 VACCINE Completed PNEUMOCOCCAL: 65+ Completed URINE ALBUMIN:CREATININE RATIO Discontinued ADVANCE DIRECTIVE DISCUSSION Discontinued Data reviewed ASSESSMENT/PLAN: 1. Cellulitis of skin - ICD9: 682.9, ICD10: L03.90 (primary diagnosis) Will extend doxy for additional 5 days. Keep follow up as scheduled but return sooner if not improving. - [facility]ULT TO [facility] ([facility] 2. Wound of left lower extremity, subsequent encounter - ICD9: V58.89, 894.0, ICD10: S81.802D Will set up with wound clinic to make sure improving. - CONSULT TO WOUND [facility]ALING C[facility] 3. OAB (overactive bladder) - ICD9: 596.51, ICD10: N32.81 Start oxybutynin. Check urine today to rule out acute UTI. - URINALYSIS, WITH MICROSCOPIC - URINE CULTURE - CBC + DIFF - COMP METABOLIC PANEL Sharona Bettencourt PA-C documented in this encounterOur [facility]06-[facility] History of Present illness Narrative* Lupe Ny PA-C - 09/25/2022 2:38 PM EDT Lupe Ny PA-C Department of Orthopaedics Orthopaedics [address] [facility] [address] Dept: [phone] Dept September 25, 2022 CHIEF COMPLAINT: Post Op of the Right Wrist and 1 week 4 days post op Right CTR. ASSESSMENT: G56.01 Carpal tunnel syndrome on right (primary encounter diagnosis) SUMMARY/PLAN: Patient presents 1 week and 4 days status post right carpal tunnel release. The patient states thatshe had quite a bit of pain for about 4 days after surgery which we she was not expecting. She was taking Tylenol and NSAIDs, which she is not supposed to be taking, which were not helping the pain. Pain is a little better now, still getting pain through the palm and some numbness and tingling intoher forearm. She has been trying to use her hand for crossword puzzles, she tells me she normally tries not to move her index finger for fear that it will get stuck. We discussed proper hand washing, no soaking of the operative hand. No heavy lifting, pushing or pulling with the operative hand, encourage gentle motion. We discussed scar massage. Follow up as planned. Exam: Incision site is well approximated without erythema or drainage, there is mild but appropriate edema at the base of the palm, no ecchymosis is noted. Patient is able to form a loose composite fist with the exception of her index finger and straighten all digits, subjective numbness in the radial 3 digits. Imaging: Deferred today. Ms. Marci Marie was advised as to contrast therapies and/or to take analgesics/anti-inflammatories as needed and all contraindications were reviewed. Supporting Information Below: Medications: Current Outpatient Medications Medication Sig polyethylene glycol 3350 (MIRALAX) 17 gram packet Take 1 Packet by mouth once daily. Dissolve dose in 4 - 8 ounces of liquid and take as directed. lisinopril (ZESTRIL) 40 mg tablet Take 1 tablet by mouth twice daily. doxycycline (VIBRA-TABS) 100 mg tablet Take 1 tablet by mouth twice daily for 7 days. clotrimazole (LOTRIMIN) 1 % cream Apply to affected area twice daily for 7 days. hydroCHLOROthiazide 25 mg tablet Take 1 tablet by mouth once daily. metFORMIN (GLUCOPHAGE) 500 mg tablet Take by mouth. take 2 tabs w/breakfast;1 tab with lunch and TWO tabs w/ dinner SITagliptin phosphate (JANUVIA) 100 mg tablet Take 1 tablet by mouth once daily. blood sugar diagnostic (BLOOD GLUCOSE TEST) test strip Test blood sugar(s) 2 times daily. Dx: Type 2 DM - Uncontrolled E11.65 Insulin: No carvedilol (COREG) 3.125 mg tablet Take 1 tablet by mouth twice daily. glimepiride (AMARYL) 2 mg tablet Take 1 tablet by mouth daily with dinner. aspirin, enteric coated (ASPIRIN, ENTERIC COATED) 81 mg EC tablet Take 81 mg by mouth once daily. Take one tablet daily nitroglycerin sublingual (NITROQUICK) 0.4 mg SL tablet Dissolve 1 tablet under the tongue as needed. FOR CHEST PAIN. IF NO RELIEF CALL 911 aspirin 325 mg tablet Take 325 mg by mouth one time only. Taken 11/15/2021 pre heart cath furosemide (LASIX) 80 mg tablet Take 0.5 tablets by mouth as needed. pimecrolimus (ELIDEL) 1 % cream Apply to affected area twice daily. lidocaine (LIDODERM) 5 % APPLY 1 PATCH TOPICALLY ONCE DAILY TO MOST PAINFUL AREA. LEAVE ON FOR 12 HOURS AND REMOVE FOR 12 HOURS. ibuprofen (MOTRIN) 200 mg tablet Take by mouth. Lancets lancets Test blood sugar(s) 2 times daily. Dx: Type 2 DM - Uncontrolled E11.65 Insulin: No omega-3 fatty acids 1,000 mg cap Take 2 capsules by mouth once daily. Cholecalciferol, Vitamin D3, 2,000 unit cap Take 3 capsules by mouth once daily. Blood Pressure Cuff - Home Use BLOOD PRESSURE CUFF FOR HOME USE. DX: LABILE BLOOD PRESSURE ACETAMINOPHEN (TYLENOL ARTHRITIS ORAL) Take 1 tablet by mouth every 6 hours. amLODIPine (NORVASC) 2.5 mg tablet Take 1 tablet by mouth once daily. No current facility-administered medications for this visit. Allergies: Codeine, Penicillins, Pioglitazone, Prednisone, Celebrex [Celecoxib], Niacin, and Sulfa (Sulfonamide Antibiotics) This note was partially generated using [email or web address] voice recognition system, and there may be some incorrect words, spellings, and punctuation that were not noted in checking the note before saving. Lupe Ny PA-C * Salina Lucio Ma - 09/25/2022 2:17 PM EDT Patient presents with: Right Wrist - Post Op 1 week 4 days post op Right CTR AMB ROOMING INTAKE FLOWSHEET DATA Pain Pain Level: 8 Pain Location: Wrist-Right Description: Sharp, Dull, Aching Duration Amount of Time: (post op) Frequency: Intermittent Intervention/Comfort measure: Medication Patient states she had pain for 4 days after her surgery. She is having numbness and tingling that is radiating up into her forearm. Taking Tylenol as needed and helps. She did take an Aleve after surgery. States she mot suppose to take. Sutures intact. No redness or drainage. documented in this encounterOur Lady Of Mer[facility]06-26-2023 Instructions* Patient Instructions* Oanh Morrell APRN.[facility] - 09/25/2022 12:21 PM EDT Constipation What is constipation? Constipation is infrequent or uncomfortable bowel movements. Often the bowel movements are small, hard, or dry. How does it occur? You may have constipation because: You wait too long to have bowel movements. You do not drink enough fluids. You overuse laxatives. You do not eat enough fiber. You don't have enough physical activity. You are taking a medicine that has a side effect of constipation. Some medical conditions and diseases can also cause constipation. What are the symptoms? Symptoms may include having: small bowel movements hard, dry bowel movements uncomfortable or painful bowel movements that are hard to pass a longer time than usual between bowel movements. Normal frequencies for bowel movements may vary from 3 times a day to once every 3 days, depending on the person. What's important is whether there is a change in what has been normal for you. How is it treated? To ease your constipation: Do not delay bowel movements. Make sure that you go to the bathroom whenever you feel that you need to go. Drink more fluids. Increase the amount of fiber in your diet. Increase your physical activity. Ask your health care provider if any medicines you are taking may be causing constipation. Tell your health care provider if: You start having constipation after years of normal bowel movements. You have bouts of constipation alternating with bouts of diarrhea. You have pain during bowel movements or for some time afterward. Your bowel movements are tarry or have blood in them. You lose weight unexpectedly. How can I take care of myself? To help take care of yourself: Eat fresh vegetables and fruit every day. Exercise regularly. For example, walk for 20 minutes every day. Drink prune juice or eat stewed fruits at breakfast. Drink plenty of fluids. Increase the whole-grain fiber in your diet by eating cereals with 5 or more grams of fiber per bowl (for example, shredded wheat or bran flakes). Take a fiber product like Metamucil or Citrucel once or twice a day for several days if you are constipated. If the problem continues, check with your health care provider, but generally you can take 1 to 3 doses of these products a day regularly. Avoid using laxatives. Avoid using cathartics, which are products that will cause a fluid bowel movement. Cathartics irritate the lining of the intestines. documented in this encounterOur Lady Of Mercy [facility]06-26-2023 History of Present illness Narrative* Oanh Morrell APRN.CNP - 09/25/2022 11:53 AM EDT This note was created using NoteWriter. Subjective Marci Marie is a 82 year old female. 82 year old female with PMH DM,hyperlipidemia, HTN, hyperlipidemia, GERD presents with concerns forconstipation. Acute onset last night. Diffuse abdomen. +feels full and states that she also experiences cramping Endorses she has had similar in past. States that she has been on ATB. Keflex and Doxy States that at time she can experience diarrhea and/or constipation. +belching. 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 The history is provided by the patient. No bilingual speech language pathologist was used. Abdominal Pain This is a new problem. The current episode started yesterday. The problem occurs constantly. The problem has not changed since onset.The pain is associated with an unknown factor. The pain is locatedin the generalized abdominal region. The quality of the pain is cramping and pressure-like. The pain is at a severity of 6/10. The pain is moderate. Associated symptoms include belching and flatus. Pe rtinent negatives include anorexia, fever, diarrhea, hematochezia, melena, nausea, vomiting, constipation, dysuria, frequency, hematuria, headaches, arthralgias and myalgias. Nothing aggravates the symptoms. Nothing relieves the symptoms. Past workup does not include GI consult, CT scan, ultrasound, surgery or barium enema. Her past medical history is significant for GERD. Her past medical history does not include PUD, gallstones, ulcerative colitis, Crohn's disease or irritable bowel syndrome. PAST MEDICAL HISTORY Diagnosis Date Acquired deformity of left toe 03/21/2021 second and third digits Adjustment disorder with depressed mood 01/19/2020 Aortic stenosis, mild 12/02/[address] 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 prior episode ([facility]) 01/19/2020 Diabetic eye exam ([facility]) 08/21/2016 Last Done: 08/09/2017 No Retinopathy Diaphragmatic hernia without mention of obstruction or gangrene Elevated alkaline phosphatase level 08/28/2018 Elevated serum GGT level 07/03/2017 Essential hypertension 07/13/2014 Foot callus 03/21/2021 SAMEER (generalized anxiety disorder) 09/05/2018 Gastroesophageal reflux disease with esophagitis 04/23/2015 Herpes zoster mild occasional neuralgia in left cervical area. Hiatal hernia History of colon polyps Mixed hyperlipidemia Morbid obesity with BMI of 40.0-44.9, adult ([facility]) 06/19/2016 Multiple thyroid nodules 03/24/2021 03/2021: Needs yearly f/u for 5 yrs Osteopenia 04/24/2011; Start vitamin d 1,000/day and RE-CHECK 2013 Personal history of other malignant neoplasm of skin 02/26/2009 Schatzki's ring Sebaceous cyst 07/03/2017 lower anterior neck Skin cancer, basal cell 04/23/2015 nose Stricture and stenosis of esophagus egd/dilatation by Dr. Hollins; Tinnitus of both ears 12/26/2021 Due to hearing loss. Type 2 diabetes mellitus with proteinuria ([facility]) 07/07/2013 Uncontrolled type 2 diabetes mellitus with hyperglycemia ([facility]) 01/02/2020 Venous (peripheral) insufficiency 12/21/2015 Vitamin D deficiency 11/26/2015 PAST SURGICAL HISTORY Procedure Laterality Date 2D ECHO (EXEP) 12/02/2015 EF=59% mild LVH, mild MR,TR and 2D ECHO (EXEP) 02/13/2020 EF=65%, mild dilated LA, 1+ MR and CHOLECYSTECTOMY Cholecystectomy COLONOSCOPY 11/04/2018 Sessile serrated polyp, Tubullovillous adenoma. Dr. Filemon Galvan. COLONOSCOPY SCRN NOT HIGH RISK 06/10/03 upper and lower EGD 08/17/2009 Dr. Theo Hollins EGD DILATION 11/04/2018 Schatzi's Ring, mild reactive gastropathy. Dr. Filemon Galvan. ESOPHAGOGASTRODUODENOSCOPY TRANSORAL DIAGNOSTIC 06/2003 EGD EXERCISE ECG STRESS TEST 03/02/2020 negative NOSE SURGERY HX 2006 Nasal fracture repair TONSILLECTOMY AND ADENOIDECTOMY HX WRIST SURGERY HX 12/1988 Broken Left wrist surgery at [facility] - Dr. Delgado ALLERGIES Codeine, Penicillins, Pioglitazone, Prednisone, Celebrex [Celecoxib], Niacin, and Sulfa (Sulfonamide Antibiotics) MEDICATIONS lisinopril (ZESTRIL) 40 mg tablet Take 1 tablet by mouth twice daily. doxycycline (VIBRA-TABS) 100 mg tablet Take 1 tablet by mouth twice daily for 7 days. clotrimazole (LOTRIMIN) 1 % cream Apply to affected area twice daily for 7 days. hydroCHLOROthiazide 25 mg tablet Take 1 tablet by mouth once daily. metFORMIN (GLUCOPHAGE) 500 mg tablet Take by mouth. take 2 tabs w/breakfast;1 tab with lunch and TWO tabs w/ dinner SITagliptin phosphate (JANUVIA) 100 mg tablet Take 1 tablet by mouth once daily. blood sugar diagnostic (BLOOD GLUCOSE TEST) test strip Test blood sugar(s) 2 times daily. Dx: Type 2 DM - Uncontrolled E11.65 Insulin: No carvedilol (COREG) 3.125 mg tablet Take 1 tablet by mouth twice daily. glimepiride (AMARYL) 2 mg tablet Take 1 tablet by mouth daily with dinner. amLODIPine (NORVASC) 2.5 mg tablet Take 1 tablet by mouth once daily. aspirin, enteric coated (ASPIRIN, ENTERIC COATED) 81 mg EC tablet Take 81 mg by mouth once daily. Take one tablet daily nitroglycerin sublingual (NITROQUICK) 0.4 mg SL tablet Dissolve 1 tablet under the tongue as needed. FOR CHEST PAIN. IF NO RELIEF CALL 911 aspirin 325 mg tablet Take 325 mg by mouth one time only. Taken 11/15/2021 pre heart cath furosemide (LASIX) 80 mg tablet Take 0.5 tablets by mouth as needed. pimecrolimus (ELIDEL) 1 % cream Apply to affected area twice daily. lidocaine (LIDODERM) 5 % APPLY 1 PATCH TOPICALLY ONCE DAILY TO MOST PAINFUL AREA. LEAVE ON FOR 12 HOURS AND REMOVE FOR 12 HOURS. ibuprofen (MOTRIN) 200 mg tablet Take by mouth. Lancets lancets Test blood sugar(s) 2 times daily. Dx: Type 2 DM - Uncontrolled E11.65 Insulin: No omega-3 fatty acids 1,000 mg cap Take 2 capsules by mouth once daily. Cholecalciferol, Vitamin D3, 2,000 unit cap Take 3 capsules by mouth once daily. Blood Pressure Cuff - Home Use BLOOD PRESSURE CUFF FOR HOME USE. DX: LABILE BLOOD PRESSURE ACETAMINOPHEN (TYLENOL ARTHRITIS ORAL) Take 1 tablet by mouth every 6 hours. FAMILY HISTORY Problem Relation Age of Onset Allergies Mother Heart Mother Asthma Mother Alzheimer's Disease Father Heart disease Father Hypertension Father Hypertension Maternal Grandmother DVT Maternal Grandmother Stroke Paternal Grandmother Stroke Paternal Grandfather Hypertension Brother Diabetes Brother Social History Tobacco Use Smoking status: Never Smokeless tobacco: Never Tobacco comments: 2nd hand Vaping Use Vaping Use: Never used Substance Use Topics Alcohol use: No Drug use: No Review of Systems Constitutional: Negative for fever. Gastrointestinal: Positive for abdominal pain and flatus. Negative for anorexia, constipation, diarrhea, hematochezia, melena, nausea and vomiting. Genitourinary: Negative for dysuria, frequency and hematuria. Musculoskeletal: Negative for arthralgias and myalgias. Neurological: Negative for headaches. Objective BP 124/82 Pulse 82 Temp 36.6 C (97.8 F) Resp 18 Wt 113.8 kg (250 lb 12.8 oz) LMP (LMP Unknown) SpO2 94% BMI 40.48 kg/m Physical Exam Vitals and nursing note reviewed. Constitutional: General: She is not in acute distress. Appearance: Normal appearance. She is normal weight. She is not ill-appearing, toxic-appearing or diaphoretic. HENT: Head: Normocephalic and atraumatic. Right Ear: Ear canal and external ear normal. Left Ear: Ear canal and external ear normal. Nose: Nose normal. No congestion or rhinorrhea. Mouth/Throat: Mouth: Mucous membranes are moist. Pharynx: No oropharyngeal exudate or posterior oropharyngeal erythema. Eyes: General: Right eye: No discharge. Left eye: No discharge. Extraocular Movements: Extraocular movements intact. Conjunctiva/sclera: Conjunctivae normal. Pupils: Pupils are equal, round, and reactive to light. Cardiovascular: Rate and Rhythm: Normal rate and regular rhythm. Pulses: Normal pulses. Heart sounds: Normal heart sounds. No murmur heard. No friction rub. Pulmonary: Effort: Pulmonary effort is normal. No respiratory distress. Breath sounds: Normal breath sounds. No stridor. No wheezing, rhonchi or rales. Chest: Chest wall: No tenderness. Abdominal: General: Abdomen is flat. There is distension (mild distention). Palpations: There is no mass. Tenderness: There is abdominal tenderness (generalized TTP). There is no right CVA tenderness, leftCVA tenderness, guarding or rebound. Hernia: No hernia is present. Musculoskeletal: General: No swelling, tenderness, deformity or signs of injury. Normal range of motion. Cervical back: Normal range of motion and neck supple. No rigidity. Right lower leg: No edema. Left lower leg: No edema. Lymphadenopathy: Cervical: No cervical adenopathy. Skin: General: Skin is warm and dry. Capillary Refill: Capillary refill takes less than 2 seconds. Coloration: Skin is not jaundiced or pale. Findings: No bruising, erythema, lesion or rash. Neurological: General: No focal deficit present. Mental Status: She is alert and oriented to person, place, and time. Cranial Nerves: No cranial nerve deficit. Sensory: No sensory deficit. Motor: No weakness. Coordination: Coordination normal. Gait: Gait normal. Psychiatric: Mood and Affect: Mood normal. Behavior: Behavior normal. Thought Content: Thought content normal. Judgment: Judgment normal. Assessment and Plan ASSESSMENT/PLAN: 1. Acute constipation - ICD9: 564.00, ICD10: K59.00 X 2 days Small amounts of stool NAD Hemodynamically stable - XR ABDOMEN 1V SUPINE-reveals nonobstructive gas pattern and moderate stool burden RX Miralax Increase fluids Follow up if sx persist Oanh Morrell APRN.DIESEL MAINTENANCE TECHNICIAN documented in this encounterOur Lady Of [facility]06-22-2023 Miscellaneous Notes* Telephone Encounter - Delores Rodriguez - 09/21/2022 11:53 AM EDT Patient reviewed for Population Health Medication Adherence Pended the following prescription(s) for review. Requested Prescriptions Pending Prescriptions Disp Refills lisinopril (ZESTRIL) 40 mg tablet 180 tablet 3 Sig: Take 1 tablet by mouth twice daily. Future Appointments Date Time Provider Department Center 09/25/2022 2:30 PM SHANTHI Mccoy [facility] 09/26/2022 12:40 PM Sharona Bettencourt PA-C [facility] 10/10/2022 9:20 AM Arturo Amaya MD [facility] 10/19/2022 11:40 AM MD AJITH Cuello [facility] 10/23/2022 2:40 PM Hai Hopson MD [facility] Please review and refill if appropriate. Thank you. Delores Rodriguez [facility] September 21, 2022 11:53 AM documented in this encounterOur Lady Of Mercy Hospital06-20-2023 History of Present illness Narrative* Azra Up PA-C - 09/19/2022 3:15 PM EDT Images from the original note were not included. This note was created using [employer]. Subjective Marci Marie is a 82 year old female. HPI Patient presents with a chief complaint of left lower leg redness. She had gotten scratched by her dog's treat and was seen on September 12. She was started on Keflex. States that that did improve the redness however she is done with antibiotic tomorrow and its not completely gone. She does have some pain in the area and warmth. She does have a history of chronic peripheral edema and lymphedema. She also has had vaginal itching and discharge and a rash in the right groin area that she thinks is a yeast infection. She has had this happen before with antibiotics. No fever. Review of Systems Constitutional: Negative. HENT: Negative. Cardiovascular: Negative. Gastrointestinal: Negative. Genitourinary: Positive for vaginal discharge. Vaginal itching, groin rash All other systems reviewed and are negative. PAST MEDICAL HISTORY Diagnosis Date Acquired deformity of left toe 03/21/2021 second and third digits Adjustment disorder with depressed mood 01/19/2020 Aortic stenosis, mild 12/02/[address] 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 prior episode ([facility]) 01/19/2020 Diabetic eye exam ([facility]) 08/21/2016 Last Done: 08/09/2017 No Retinopathy Diaphragmatic hernia without mention of obstruction or gangrene Elevated alkaline phosphatase level 08/28/2018 Elevated serum GGT level 07/03/2017 Essential hypertension 07/13/2014 Foot callus 03/21/2021 SAMEER (generalized anxiety disorder) 09/05/2018 Gastroesophageal reflux disease with esophagitis 04/23/2015 Herpes zoster mild occasional neuralgia in left cervical area. Hiatal hernia History of colon polyps Mixed hyperlipidemia Morbid obesity with BMI of 40.0-44.9, adult ([facility]) 06/19/2016 Multiple thyroid nodules 03/24/2021 03/2021: Needs yearly f/u for 5 yrs Osteopenia 04/24/2011; Start vitamin d 1,000/day and RE-CHECK 2013 Personal history of other malignant neoplasm of skin 02/26/2009 Schatzki's ring Sebaceous cyst 07/03/2017 lower anterior neck Skin cancer, basal cell 04/23/2015 nose Stricture and stenosis of esophagus egd/dilatation by Dr. Hollins; Tinnitus of both ears 12/26/2021 Due to hearing loss. Type 2 diabetes mellitus with proteinuria ([facility]) 07/07/2013 Uncontrolled type 2 diabetes mellitus with hyperglycemia ([facility]) 01/02/2020 Venous (peripheral) insufficiency 12/21/2015 Vitamin D deficiency 11/26/2015 Current Outpatient Medications Medication Sig Dispense Refill doxycycline (VIBRA-TABS) 100 mg tablet Take 1 tablet by mouth twice daily for 7 days. 14 tablet 0 clotrimazole (LOTRIMIN) 1 % cream Apply to affected area twice daily for 7 days. 28 g 0 fluconazole (DIFLUCAN) 150 mg tablet Take 1 tablet by mouth one time only for 1 dose. Repeat in 3 days as needed. 2 tablet 0 cephALEXin (KEFLEX) 500 mg capsule Take 1 capsule by mouth three times daily for 7 days. 21 capsule0 hydroCHLOROthiazide 25 mg tablet Take 1 tablet by mouth once daily. 30 tablet 3 metFORMIN (GLUCOPHAGE) 500 mg tablet Take by mouth. take 2 tabs w/breakfast;1 tab with lunch and TWO tabs w/ dinner 150 tablet 5 SITagliptin phosphate (JANUVIA) 100 mg tablet Take 1 tablet by mouth once daily. 30 tablet 5 blood sugar diagnostic (BLOOD GLUCOSE TEST) test strip Test blood sugar(s) 2 times daily. Dx: Type 2 DM - Uncontrolled E11.65 Insulin: No 100 Strip 11 carvedilol (COREG) 3.125 mg tablet Take 1 tablet by mouth twice daily. 60 tablet 3 glimepiride (AMARYL) 2 mg tablet Take 1 tablet by mouth daily with dinner. 30 tablet 2 lisinopril (ZESTRIL, PRINIVIL) 40 mg tablet Take 1 tablet by mouth twice daily. 180 tablet 1 amLODIPine (NORVASC) 2.5 mg tablet Take 1 tablet by mouth once daily. 30 tablet 5 aspirin, enteric coated (ASPIRIN, ENTERIC COATED) 81 mg EC tablet Take 81 mg by mouth once daily. Take one tablet daily nitroglycerin sublingual (NITROQUICK) 0.4 mg SL tablet Dissolve 1 tablet under the tongue as needed. FOR CHEST PAIN. IF NO RELIEF CALL [phone] Bottle of 25 2 aspirin 325 mg tablet Take 325 mg by mouth one time only. Taken 11/15/2021 pre heart cath furosemide (LASIX) 80 mg tablet Take 0.5 tablets by mouth as needed. 30 tablet 2 pimecrolimus (ELIDEL) 1 % cream Apply to affected area twice daily. 30 g 0 lidocaine (LIDODERM) 5 % APPLY 1 PATCH TOPICALLY ONCE DAILY TO MOST PAINFUL AREA. LEAVE ON FOR 12 HOURS AND REMOVE FOR 12 HOURS. ibuprofen (MOTRIN) 200 mg tablet Take by mouth. Lancets lancets Test blood sugar(s) 2 times daily. Dx: Type 2 DM - Uncontrolled E11.65 Insulin: No 100 Each 11 omega-3 fatty acids 1,000 mg cap Take 2 capsules by mouth once daily. Cholecalciferol, Vitamin D3, 2,000 unit cap Take 3 capsules by mouth once daily. 0 Blood Pressure Cuff - Home Use BLOOD PRESSURE CUFF FOR HOME USE. DX: LABILE BLOOD PRESSURE 1 Device0 ACETAMINOPHEN (TYLENOL ARTHRITIS ORAL) Take 1 tablet by mouth every 6 hours. No current facility-administered medications for this visit. PAST SURGICAL HISTORY Procedure Laterality Date 2D ECHO (EXEP) 12/02/2015 EF=59% mild LVH, mild MR,TR and 2D ECHO (EXEP) 02/13/2020 EF=65%, mild dilated LA, 1+ MR and CHOLECYSTECTOMY Cholecystectomy COLONOSCOPY 11/04/2018 Sessile serrated polyp, Tubullovillous adenoma. Dr. Filemon Galvan. COLONOSCOPY SCRN NOT HIGH RISK 06/10/03 upper and lower EGD 08/17/2009 Dr. Theo Hollins EGD DILATION 11/04/2018 Schatzi's Ring, mild reactive gastropathy. Dr. Filemon Galvan. ESOPHAGOGASTRODUODENOSCOPY TRANSORAL DIAGNOSTIC 06/2003 EGD EXERCISE ECG STRESS TEST 03/02/2020 negative NOSE SURGERY HX 2006 Nasal fracture repair TONSILLECTOMY AND ADENOIDECTOMY HX WRIST SURGERY HX 12/1988 Broken Left wrist surgery at [facility] - Dr. Delgado FAMILY HISTORY Problem Relation Age of Onset Allergies Mother Heart Mother Asthma Mother Alzheimer's Disease Father Heart disease Father Hypertension Father Hypertension Maternal Grandmother DVT Maternal Grandmother Stroke Paternal Grandmother Stroke Paternal Grandfather Hypertension Brother Diabetes Brother Social History Tobacco Use Smoking status: Never Smokeless tobacco: Never Tobacco comments: 2nd hand Vaping Use Vaping Use: Never used Substance Use Topics Alcohol use: No Drug use: No Objective BP 116/74 Pulse 72 Temp 36.8 C (98.3 F) Resp 16 Ht 167.6 cm (5' 6) Wt 115.7 kg (255 lb) LMP (LMP Unknown) SpO2 95% BMI 41.16 kg/m Physical Exam Vitals reviewed. Constitutional: Appearance: Normal appearance. HENT: Head: Normocephalic and atraumatic. Musculoskeletal: Right lower leg: Edema present. Left lower leg: Edema present. Comments: Patient has chronic appearing bilateral lymphedema with erythema to the lateral left lower leg and some mild swelling laterally. Warm to touch. No posterior calf pain. Lymphangitic streaking. No sign of abscess. Skin: General: Skin is warm and dry. Comments: Patient has erythematous rash in the right inguinal area under the pannus, consistent with intertrigo. Neurological: Mental Status: She is alert. Assessment and Plan ASSESSMENT/PLAN: 1. Vaginal yeast infection - ICD9: 112.1, ICD10: B37.31 (primary diagnosis) Given prescription for Diflucan. 2. Left leg cellulitis - ICD9: 682.6, ICD10: L03.116 Incomplete response to the Keflex, did improve some but not completely better. I will extend antibiotic with doxycycline. Recommended she have a follow-up with her PCP to look at the leg again. Patient agreeable. 3. Intertrigo - ICD9: 695.89, ICD10: L30.4 Clotrimazole cream prescribed. Azra Up PA-C documented in this encounterOur [facility]04-11-2023 Miscellaneous Notes* Telephone Encounter - Liz Awad Ma - 07/11/2022 9:53 AM EDT Patient was notified and is doing metfromin as directed, pcp advised max dose so keep same. 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 Judith Parrish MA * Telephone Encounter - Kendra Braden MA - 07/03/2022 2:05 PM EDT Attempted to contact patient, no voicemail set up. Kendra Braden MA * Telephone Encounter - Arturo Amaya MD - 07/03/2022 11:15 AM EDT Let patient know I reviewed her office note with Cardio today. I agree with the stoppage of the pioglitazone but will need to add something to replace it. It also looks like she may not be taking her metformin like she is supposed to since the last script was in October for 6 months and therefore should of required a refill back in May. I sent in a refill for the metformin and remind her she should be taking 2 in the AM, one at lunch and two with dinner. I also sent paul script for Januvia 100 mg a day to replace the Pioglitazone. documented in this encounterOur [facility]03-06-2023 Miscellaneous Notes* Telephone Encounter - Arturo Amaya MD - 06/05/2022 5:33 PM EST The following approved medication requests have been transmitted electronically. Requested Prescriptions Signed Prescriptions Disp Refills blood sugar diagnostic (BLOOD GLUCOSE TEST) test strip 100 Strip 11 Sig: Test blood sugar(s) 2 times daily. Dx: Type 2 DM - Uncontrolled E11.65 Insulin: No Authorizing Provider: ARTURO AMAYA MD * Telephone Encounter - Judith Parrish MA - 06/05/2022 4:49 PM EST Patient has been identified by name and date of : Yes Requested Prescriptions Pending Prescriptions Disp Refills blood sugar diagnostic (BLOOD GLUCOSE TEST) test strip 100 Strip 11 Sig: Test blood sugar(s) 2 times daily. Dx: Type 2 DM - Uncontrolled E11.65 Insulin: No RX INSTRUCTIONS: Patient aware RX will be sent to pharmacy. No need to notify patient. Judith Parrish MA Zeus; 04/2022 Nov: 09/2022 Last refill: 12/2020 * Telephone Encounter - Kendra Damon Pss - 06/05/2022 1:26 PM EST Patient has been identified by name and date of : Yes Requested Prescriptions Pending Prescriptions Disp Refills blood sugar diagnostic (BLOOD GLUCOSE TEST) test strip 100 Strip 11 Sig: Test blood sugar(s) 2 times daily. Dx: Type 2 DM - Uncontrolled E11.65 Insulin: No RX INSTRUCTIONS: Patient aware RX will be sent to pharmacy. No need to notify patient. Kendra Damon Pss documented in this encounterOur Lady Of Mercy Hospital03-03-2023 Miscellaneous Notes* Telephone Encounter - Jennifer Herzog Ma - 06/02/2022 3:19 PM EST I called and spoke with patient. Surgical request completed for right CTR under local anesthesia at [facility] on 07/20/2022. Post op appointments have been scheduled and mailed to patient. * Telephone Encounter - Darcie Kimbrough - 06/02/2022 12:56 PM EST Pt calling to schedule the right carpal tunnel surgery. She would like it done here at [place] under local anesthesia. Please contact her at [phone]. Darcie Kimbrough documented in this encounterOur Lady Of Mercy [facility]02-08-2023 History of Present illness Narrative* Arturo Amaya MD - 05/10/2022 12:06 PM EST Let patient know the nerve studies of her arms shows sever Carpal tunnel on the right and moderate on the left. Next step would be to see ortho. Either Dr. Jeffries with us or [facility] * Judith Parrish MA - 05/10/2022 10:54 AM EST Scan on 05/08/2022 3:22 PM by External Provider: Neurology Please review. Judith Parrish MA documented in this encounterOur Lady Of Mercy Hospital2023 Procedure [facility]01-12-2023 Miscellaneous Notes* Telephone Encounter - Arturo Amaya MD - 04/13/2022 3:20 PM EST Noted. * Telephone Encounter - Judith Parrish MA - 04/13/2022 1:18 PM EST Contacted patient and she indicated that the redness did get better today. She wanted to report because she has never had a reaction. She indicated that she had gotten over cellulitis and was just concerned. Patient indicated that if it doesn't get better or get worse she will go to urgent care. Judith Parrish MA * Telephone Encounter - Arturo Amaya MD - 04/13/2022 1:00 PM EST Patient had appt with Rasheed on 04/11/22. Is the reaction better today or getting worse. If getting worse will need seen. * Telephone Encounter - Judith Parrish MA - 04/13/2022 8:37 AM EST Patient notified and voice understanding. Patient indicated that she has a flu on 04/13 with Rasheed Chin and had a reaction to the flu shot. Bright redness around her left upper arm; sore; hot the touch; itching and she also had lower stomach pains. She indicated that she has never had a reaction before. Judith Parrish MA * Telephone Encounter - Arturo Amaya MD - 04/12/2022 9:11 PM EST Let patient know recent labs and urine test were all ok. documented in this encounterOur Lady Of Mercy Hospital01-10-2023 Instructions* Patient Instructions* Rasheed Chin APRN.CNP - 04/11/2022 9:18 AM EST Continue all medications. Follow up in 6 months for routine follow up documented in this encounterOur Lady Of Mercy Hospital01-10-2023 History of Present illness Narrative* Rasheed Chin APRN.DIESEL MAINTENANCE TECHNICIAN - 04/11/2022 9:00 AM EST Marci Marie is a 82 year old female here for a Medicare Subsequent Annual Wellness Visit Health Risk Assessment In general, health is: Good Concerns with balance:Not at all Concerns with teeth or dentures:Not at all Concerns with sexual function:Not at all [place] anxious, stressed, angry, irritable, lonely, isolated, or had thoughts of hurting themself: Several days, upset/lonely regarding family interactions Has little interest or pleasure in doing things: Not at all Bothered by feeling down, depressed, or hopeless: Not at all Needs help with grocery shopping, cooking, housework, bathing, grooming, dressing, eating, sitting or standing, walking, using the toilet, handling finances, taking medications, using the telephone, or driving: No Following safety precautions in the home environment and vehicle: removed throw rugs from floors, installed grab bars in the bathroom, handrails in stairwells, having adequate lighting, wearing seatbelt at all times?: Yes Smokes cigarettes, vapes, or chew tobacco: No Eats healthy foods including fruits, vegetables, whole grains, and fiber-rich foods: Nearly every day Number of days per week engages in exercise: 0 days Average alcohol consumption: Never Current Providers Specialists: I have reviewed specialist-related care of the patient in the medical record. Current care team: Patient Care Team: Arturo Amaya MD as PCP - General (Family Medicine) Medical/Family history review Reviewed and updated problem list, medical/surgical/family/social history, medications, and allergies. Opioid use review Patient is not currently using opioids. Depression screening Depression Screening PHQ-2 Score 11/22/2021 0 Depression screening tool completed and reviewed. Based on score and interview, patient is not at risk for depression. Screening tool discussed with patient, and I recommended no further interventionat this time. Cognitive screening Mini Cog Score: Score: 4 Cognitive screening reviewed and no further action needed (score 3-5) Functional Observation Was the patient's timed Up & Go test unsteady or ? 12 seconds? No Advance Care Planning End of Life planning discussed, including patient's advanced directive wishes: Yes Measurements There were no vitals taken for this visit. Visual acuity (required for Welcome to Medicare): follows with optometry/ophthalmology Hearing Evaluation: hard of hearing Assessment/Plan - Counseled on healthy diet and regular exercise - Discussed need for and benefit of weight loss. BMI 42.29 kg/(m^2) - Fall avoidance - Vaccines recommended Influenza Chief Complaint No chief complaint on file. HPI Marci Marie is a 82 year old female who presents here today for Above Complaints.. Patient presents for routine follow up. Patient reports that she was recently treated for cellulitis and that this has resolved. Patient reports that overall she feels good. Patient reports taking her medication as directed and denies needing refills at this time. Past medical history, appointments, medications, allergies reviewed. Previous Medical History PAST MEDICAL HISTORY Diagnosis Date Acquired deformity of left toe 03/21/2021 second and third digits Adjustment disorder with depressed mood 01/19/2020 Aortic stenosis, mild 12/02/[address] 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) 07/01/2007 Corns and callus 09/18/2016 Current severe episode of major depressive disorder with psychotic features without prior episode ([facility]) 01/19/2020 Diabetic eye exam ([facility]) 08/21/2016 Last Done: 08/09/2017 No Retinopathy Diaphragmatic hernia without mention of obstruction or gangrene Elevated alkaline phosphatase level 08/28/2018 Elevated serum GGT level 07/03/2017 Essential hypertension 07/13/2014 Foot callus 03/21/2021 SAMEER (generalized anxiety disorder) 09/05/2018 Gastroesophageal reflux disease with esophagitis 04/23/2015 Herpes zoster mild occasional neuralgia in left cervical area. Hiatal hernia History of colon polyps Mixed hyperlipidemia Morbid obesity with BMI of 40.0-44.9, adult ([facility]) 06/19/2016 Multiple thyroid nodules 03/24/2021 US 03/2021: Needs yearly f/u for 5 yrs Osteopenia 04/24/2011; Start vitamin d 1,000/day and RE-CHECK 2013 Personal history of other malignant neoplasm of skin 02/26/2009 Schatzki's ring Sebaceous cyst 07/03/2017 lower anterior neck Skin cancer, basal cell 04/23/2015 nose Stricture and stenosis of esophagus egd/dilatation by Dr. Hollins; Tinnitus of both ears 12/26/2021 Due to hearing loss. 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 Dr. Filemon Galvan. COLONOSCOPY SCRN NOT HIGH RISK 06/10/03 upper and lower EGD 08/17/2009 Dr. Theo Hollins EGD DILATION 11/04/2018 Schatzi's Ring, mild reactive gastropathy. Dr. Filemon Galvan. ESOPHAGOGASTRODUODENOSCOPY TRANSORAL DIAGNOSTIC 06/2003 EGD EXERCISE ECG STRESS TEST 03/02/2020 negative NOSE SURGERY HX 2006 Nasal fracture repair TONSILLECTOMY AND ADENOIDECTOMY HX WRIST SURGERY HX 12/1988 Broken Left wrist surgery at [facility] - Dr. Delgado Family History FAMILY HISTORY Problem Relation Age of Onset Allergies Mother Heart Mother Asthma Mother Alzheimer's Disease Father Heart disease Father Hypertension Father Hypertension Maternal Grandmother DVT Maternal Grandmother Stroke Paternal Grandmother Stroke Paternal Grandfather Hypertension Brother Diabetes Brother Patient Allergies ALLERGIES Allergen Reactions Codeine Rash Penicillins Rash Prednisone Rash Celebrex [Celecoxib] Unknown Niacin Rash Sulfa (Sulfonamide * Rash Current Medications Current Outpatient Medications on File Prior to Visit Medication Sig carvedilol (COREG) 3.125 mg tablet Take 1 tablet by mouth twice daily. glimepiride (AMARYL) 2 mg tablet Take 1 tablet by mouth daily with dinner. lisinopril (ZESTRIL, PRINIVIL) 40 mg tablet Take 1 tablet by mouth twice daily. pioglitazone (ACTOS) 30 mg tablet Take 1 tablet by mouth once daily. amLODIPine (NORVASC) 2.5 mg tablet Take 1 tablet by mouth once daily. aspirin, enteric coated (ASPIRIN, ENTERIC COATED) 81 mg EC tablet Take 81 mg by mouth once daily. Take one tablet daily metFORMIN (GLUCOPHAGE) 500 mg tablet Take by mouth. take 2 tabs w/breakfast;1 tab with lunch and TWO tabs w/ dinner nitroglycerin sublingual (NITROQUICK) 0.4 mg SL tablet Dissolve 1 tablet under the tongue as needed. FOR CHEST PAIN. IF NO RELIEF CALL 911 aspirin 325 mg tablet Take 325 mg by mouth one time only. Taken 11/15/2021 pre heart cath (Patient not taking: No sig reported) furosemide (LASIX) 80 mg tablet Take 0.5 tablets by mouth as needed. pimecrolimus (ELIDEL) 1 % cream Apply to affected area twice daily. lidocaine (LIDODERM) 5 % APPLY 1 PATCH TOPICALLY ONCE DAILY TO MOST PAINFUL AREA. LEAVE ON FOR 12 HOURS AND REMOVE FOR 12 HOURS. blood sugar diagnostic (BLOOD GLUCOSE TEST) test strip Test blood sugar(s) 2 times daily. Dx: Type 2 DM - Uncontrolled E11.65 Insulin: No ibuprofen (MOTRIN) 200 mg tablet Take by mouth. Lancets lancets Test blood sugar(s) 2 times daily. Dx: Type 2 DM - Uncontrolled E11.65 Insulin: No omega-3 fatty acids 1,000 mg cap Take 2 capsules by mouth once daily. (Patient not taking: Reportedon 01/02/2022) Cholecalciferol, Vitamin D3, 2,000 unit cap Take 3 capsules by mouth once daily. Blood Pressure Cuff - Home Use BLOOD PRESSURE CUFF FOR HOME USE. DX: LABILE BLOOD PRESSURE ACETAMINOPHEN (TYLENOL ARTHRITIS ORAL) Take 1 tablet by mouth every 6 hours. No current facility-administered medications on file prior to visit. Social History Social History Tobacco Use Smoking status: Never Smokeless tobacco: Never Tobacco comments: 2nd hand Vaping Use Vaping Use: Never used Substance Use Topics Alcohol use: No Drug use: No Review of Symptoms REVIEW OF SYSTEMS PAIN ASSESSMENT: Negative for pain, history of chronic pain, or current treatment for a chronic pain condition. GENERAL: No weight loss, malaise or fevers HEENT: No changes in hearing or vision, no nose bleeds or other nasal problems, Head Positive for headache NECK: Negative for lumps, goiter, pain and significant neck swelling RESPIRATORY: Shortness of breath CARDIOVASCULAR: Shortness of breath, Hypertension GI: No nausea, vomiting, or diarrhea : No difficulty urinating, nocturia > 1 time per night or hematuria MUSCULOSKELETAL: joint pain or swelling SKIN: Itchy dry skin to body PSYCH: sleep fragmented HEMATOLOGY/LYMPHOLOGY: Negative for prolonged bleeding, bruising easily or swollen nodes ENDOCRINE: Negative for cold or heat intolerance, polyuria, polydipsia and goiter NEURO: Migraine headaches EXAM: LMP (LMP Unknown) General Appearance: Well appearing, alert, in no acute distress, well-hydrated, well nourished.. Eyes: Anicteric sclera. Pupils are equally round and reactive to light. Extraocular movements are intact. . Ears: External ears normal, canals clear, Positive findings: cerumen bilaterally, amount Small. Nose/Sinuses: Nares normal, septum midline, mucosa normal, no drainage or sinus tenderness. Oropharynx: Lips, mucosa, and tongue normal, teeth and gums normal, oropharynx normal. Neck: Positive findings: thyroid: normal to inspection and palpation and enlarged. Back:no pain to palpation of vertebrae, good flexion and extension, good range of motion, no muscletenderness, reflexes are 2+ and symmetric, motor and sensory appear to be normal, negative SLR test, no evidence of scoliosis Lungs: Lungs clear to auscultation. No wheezing, rhonchi, rales.. Heart: RRR without murmur, gallop, or rubs. No ectopy. Abdomen: Normal abdominal exam, Abdomen soft, non-tender. Bowel sounds normal. No masses, organomegaly. Extremities: Pulses: 2+, Positive findings: b/l lower legs with 2+ pitting edema, slightly red and dry. Neurologic: Gait slow, uses cane. Reflexes normal and symmetric. Sensation grossly intact.. Health Maintenance List BP CONTROLLED (<130/80) Never done SHINGRIX VACCINE(1 of 2) Never done DILATED RETINAL EXAM due on 08/09/2018 INFLUENZA(1) due on 12/01/2021 HBA1C due on 03/09/2022 ADVANCE DIRECTIVE DISCUSSION Never done DEPRESSION ASSESSMENT Never done DIABETIC FOOT EXAM due on 03/21/2022 LDL CHOLESTEROL due on 09/07/2022 ANNUAL PCP TEAM CHRONIC DISEASE VISIT due on 03/29/2023 DTAP,TDAP,TD(4 - Td or Tdap) due on 12/27/2025 BONE DENSITY Completed COVID-19 VACCINE Completed PNEUMOCOCCAL: 65+ Completed URINE ALBUMIN:CREATININE RATIO Discontinued Last 5 Encounter BP Readings: Date: BP: 04/11/2022 132/74 03/29/2022 150/82 03/17/2022 160/82 03/06/2022 168/84 01/23/2022 138/77[BP Sunny average[ ASSESSMENT/PLAN: 1. Medicare annual wellness visit, subsequent - ICD9: V70.0, ICD10: Z00.00 (primary diagnosis) - Counseled on healthy diet and regular exercise - Calcium intake with supplements or by diet of 1000 mg/day for under 50, 1200- 1500 mg/day for 50+ - Discussed need and benefit for weight loss. BMI 42.29 kg/(m^2) - Depression screening tool completed and reviewed with patient. Based on score and interview, patient is not at risk for depression and recommended no further intervention at this time. - Patient was counseled [id number] by myself (the billing provider) for the following immunizations and vaccine components, including side effects: Influenza. Patient consents for immunization and understands risks and benefits. A VIS sheet on each immunization was given to the patient. - Follow up for annual exam in one year 2. Primary hypertension - ICD9: 401.9, ICD10: I10 - good control - Continue current medication(s) - Encouraged dietary sodium restriction/DASH diet - Recommended regular aerobic exercise. - Recommend home blood pressure monitoring, to bring results in on next visit - Discussed need and benefit for weight loss. - Goal of BP <130/80 - Recommend home or pharmacy blood pressure monitoring 3. Morbid obesity with BMI of 40.0-44.9, adult (HCC) - ICD9: 278.01, V85.41, ICD10: E66.01, Z68.41 Stable - Behavioral intervention 4. Uncontrolled type 2 diabetes mellitus with hyperglycemia (HCC) - ICD9: 250.02, ICD10: E11.65 uncontrolled - Continue current medications - Blood glucose monitoring on a once a day and twice a day schedule 5. 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 - BP goal of <130/80 - LDL goal of <100 6. Encounter for immunization - ICD9: V03.89, ICD10: Z23 -Influenza 65+ Rasheed Chin APRN.CNP documented in this [facility]01-03-2023 Miscellaneous Notes* Telephone Encounter - Erin Mccullough RN - 04/04/2022 2:52 PM EST Patient notified of Oanh's message below and verbalized understanding. She states she called [facility] on 04/01/22 in the afternoon and they didn't have prescription. She will call again today. If pharmacy still doesn't have prescription she will contact office tomorrow morning. * Telephone Encounter - Oanh Bernstein APRN.CNP - 04/04/2022 11:20 AM EST It says this was filled by Dr. Hopson 3 days ago * Telephone Encounter - Erin Mccullough RN - 04/04/2022 10:33 AM EST Patient phones requesting refills as follows: Requested Prescriptions Pending Prescriptions Disp Refills carvedilol (COREG) 3.125 mg tablet 60 tablet 3 Sig: Take 1 tablet by mouth twice daily. Please review and advise. Erin Mccullough RN documented in this [facility]12-28-2022 Instructions* Patient Instructions* Sharona Bettencourt PA-C - 03/29/2022 9:10 AM EST Follow up as scheduled. documented in this [facility]12-28-2022 History of Present illness Narrative* Sharona Bettencourt PA-C - 03/29/2022 9:01 AM EST Chief Complaint Patient presents with: Recheck: Patient is here for follow up cellulitis HPI Marci Marie is a 82 year old female who presents here today for recheck cellulitis. Patient has seen PCP x2 due to cellulitis. Was tx with duricef and still has a couple days left of this med. She does feel like it has improved. She states it's not tender anymore and the redness has decreased. Denies new symptoms. Past medical history, appointments, medications, allergies reviewed. Previous Medical History PAST MEDICAL HISTORY Diagnosis Date Acquired deformity of left toe 03/21/2021 second and third digits Adjustment disorder with depressed mood 01/19/2020 Aortic stenosis, mild 12/02/[address] 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 Hiatal hernia History of colon polyps Mixed hyperlipidemia Morbid obesity with BMI of 40.0-44.9, adult ([facility]) 06/19/2016 Multiple thyroid nodules 03/24/2021 US 03/2021: Needs yearly f/u for 5 yrs Osteopenia 04/24/2011; Start vitamin d 1,000/day and RE-CHECK 2013 Personal history of other malignant neoplasm of skin 02/26/2009 Schatzki's ring Sebaceous cyst 07/03/2017 lower anterior neck Skin cancer, basal cell 04/23/2015 nose Stricture and stenosis of esophagus egd/dilatation by Dr. Hollins; Tinnitus of both ears 12/26/2021 Due to hearing loss. Type 2 diabetes mellitus with proteinuria ([facility]) 07/07/2013 Uncontrolled type 2 diabetes mellitus with hyperglycemia ([facility]) 01/02/2020 Venous (peripheral) insufficiency 12/21/2015 Vitamin D deficiency 11/26/2015 Previous Surgical History PAST SURGICAL HISTORY Procedure Laterality Date 2D ECHO (EXEP) 12/02/2015 EF=59% mild LVH, mild MR,TR and 2D ECHO (EXEP) 02/13/2020 EF=65%, mild dilated LA, 1+ MR and CHOLECYSTECTOMY Cholecystectomy COLONOSCOPY 11/04/2018 Sessile serrated polyp, Tubullovillous adenoma. Dr. Filemon Galvan. COLONOSCOPY SCRN NOT HIGH RISK 06/10/03 upper and lower EGD 08/17/2009 Dr. Theo Hollins EGD DILATION 11/04/2018 Schatzi's Ring, mild reactive gastropathy. Dr. Filemon Galvan. ESOPHAGOGASTRODUODENOSCOPY TRANSORAL DIAGNOSTIC 06/2003 EGD EXERCISE ECG STRESS TEST 03/02/2020 negative NOSE SURGERY HX 2006 Nasal fracture repair TONSILLECTOMY AND ADENOIDECTOMY HX WRIST SURGERY HX 12/1988 Broken Left wrist surgery at [facility] - Dr. Delgado Family History FAMILY HISTORY Problem Relation Age of Onset Allergies Mother Heart Mother Asthma Mother Alzheimer's Disease Father Heart disease Father Hypertension Father Hypertension Maternal Grandmother DVT Maternal Grandmother Stroke Paternal Grandmother Stroke Paternal Grandfather Hypertension Brother Diabetes Brother Patient Allergies ALLERGIES Allergen Reactions Codeine Rash Penicillins Rash Prednisone Rash Celebrex [Celecoxib] Unknown Niacin Rash Sulfa (Sulfonamide * Rash Current Medications Current Outpatient Medications on File Prior to Visit Medication Sig glimepiride (AMARYL) 2 mg tablet Take 1 tablet by mouth daily with dinner. lisinopril (ZESTRIL, PRINIVIL) 40 mg tablet Take 1 tablet by mouth twice daily. pioglitazone (ACTOS) 30 mg tablet Take 1 tablet by mouth once daily. amLODIPine (NORVASC) 2.5 mg tablet Take 1 tablet by mouth once daily. aspirin, enteric coated (ASPIRIN, ENTERIC COATED) 81 mg EC tablet Take 81 mg by mouth once daily. Take one tablet daily metFORMIN (GLUCOPHAGE) 500 mg tablet Take by mouth. take 2 tabs w/breakfast;1 tab with lunch and TWO tabs w/ dinner nitroglycerin sublingual (NITROQUICK) 0.4 mg SL tablet Dissolve 1 tablet under the tongue as needed. FOR CHEST PAIN. IF NO RELIEF CALL 911 carvedilol (COREG) 3.125 mg tablet Take 1 tablet by mouth twice daily. furosemide (LASIX) 80 mg tablet Take 0.5 tablets by mouth as needed. pimecrolimus (ELIDEL) 1 % cream Apply to affected area twice daily. lidocaine (LIDODERM) 5 % APPLY 1 PATCH TOPICALLY ONCE DAILY TO MOST PAINFUL AREA. LEAVE ON FOR 12 HOURS AND REMOVE FOR 12 HOURS. blood sugar diagnostic (BLOOD GLUCOSE TEST) test strip Test blood sugar(s) 2 times daily. Dx: Type 2 DM - Uncontrolled E11.65 Insulin: No ibuprofen (MOTRIN) 200 mg tablet Take by mouth. Lancets lancets Test blood sugar(s) 2 times daily. Dx: Type 2 DM - Uncontrolled E11.65 Insulin: No Cholecalciferol, Vitamin D3, 2,000 unit cap Take 3 capsules by mouth once daily. Blood Pressure Cuff - Home Use BLOOD PRESSURE CUFF FOR HOME USE. DX: LABILE BLOOD PRESSURE ACETAMINOPHEN (TYLENOL ARTHRITIS ORAL) Take 1 tablet by mouth every 6 hours. aspirin 325 mg tablet Take 325 mg by mouth one time only. Taken 11/15/2021 pre heart cath (Patient not taking: No sig reported) omega-3 fatty acids 1,000 mg cap Take 2 capsules by mouth once daily. (Patient not taking: Reportedon 01/02/2022) No current facility-administered medications on file prior to visit. Social History Social History Tobacco Use Smoking status: Never Smokeless tobacco: Never Tobacco comments: 2nd hand Vaping Use Vaping Use: Never used Substance Use Topics Alcohol use: No Drug use: No Review of Symptoms REVIEW OF SYSTEMS See hpi EXAM: BP 150/82 (BP Site: Right Arm, BP Position: Sitting, BP Cuff Size: Large Adult) Pulse 84 Resp 18 Wt 118.8 kg (262 lb) LMP (LMP Unknown) BMI 42.29 kg/m General Appearance: Well appearing, alert, in no acute distress, well-hydrated, well nourished. andObese. Skin: left leg with edema. Erythema appears similar to the picture from 03/17. No tenderness to palp. No drainage. Health Maintenance List BP CONTROLLED (<130/80) Never done SHINGRIX VACCINE(1 of 2) Never done DILATED RETINAL EXAM due on 08/09/2018 ADVANCE DIRECTIVE DISCUSSION Never done DEPRESSION ASSESSMENT Never done INFLUENZA(1) due on 12/01/2021 HBA1C due on 03/09/2022 DIABETIC FOOT EXAM due on 03/21/2022 LDL CHOLESTEROL due on 09/07/2022 ANNUAL PCP TEAM CHRONIC DISEASE VISIT due on 03/17/2023 DTAP,TDAP,TD(4 - Td or Tdap) due on 12/27/2025 BONE DENSITY Completed COVID-19 VACCINE Completed PNEUMOCOCCAL: 65+ Completed URINE ALBUMIN:CREATININE RATIO Discontinued Data reviewed ASSESSMENT/PLAN: 1. Cellulitis of skin - ICD9: 682.9, ICD10: L03.90 - seems to be improving and pain has resolved. - advised patient to finish the antibiotic and to contact us next week if she is noticing symptoms worsening. Otherwise keep follow up on Apr 11. Sharona Bettencourt PA-C [facility] History of Present illness Narrative* Arturo Amaya MD - 03/17/2022 2:55 PM EST Chief Complaint Patient presents with: Follow Up HPI Marci Marie is a 82 year old female who presents here today for follow up left leg. Patient was to be taking Levaquin but felt that after she took it that her heart rate increased so would not take it any more. She was then changed to Duricef. See is not having the pain like she wasbut still erythematous, though patient feels it is less. No fevers or chills. The drainage has alsodecreased. Past medical history, appointments, medications, allergies reviewed. Previous Medical History PAST MEDICAL HISTORY Diagnosis Date Acquired deformity of left toe 03/21/2021 second and third digits Adjustment disorder with depressed mood 01/19/2020 Aortic stenosis, mild 12/02/[address] 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) 07/01/2007 Corns and callus 09/18/2016 Current severe episode of major depressive disorder with psychotic features without prior episode ([facility]) 01/19/2020 Diabetic eye exam ([facility]CC) 08/21/2016 Last Done: 08/09/2017 No Retinopathy Diaphragmatic hernia without mention of obstruction or gangrene Elevated alkaline phosphatase level 08/28/2018 Elevated serum GGT level 07/03/2017 Essential hypertension 07/13/2014 Foot callus 03/21/2021 SAMEER (generalized anxiety disorder) 09/05/2018 Gastroesophageal reflux disease with esophagitis 04/23/2015 Herpes zoster mild occasional neuralgia in left cervical area. Hiatal hernia History of colon polyps Mixed hyperlipidemia Morbid obesity with BMI of 40.0-44.9, adult ([facility]) 06/19/2016 Multiple thyroid nodules 03/24/2021 03/2021: Needs yearly f/u for 5 yrs Osteopenia 04/24/2011; Start vitamin d 1,000/day and RE-CHECK 2013 Personal history of other malignant neoplasm of skin 02/26/2009 Schatzki's ring Sebaceous cyst 07/03/2017 lower anterior neck Skin cancer, basal cell 04/23/2015 nose Stricture and stenosis of esophagus egd/dilatation by Dr. Hollins; Tinnitus of both ears 12/26/2021 Due to hearing loss. Type 2 diabetes mellitus with proteinuria ([facility]) 07/07/2013 Uncontrolled type 2 diabetes mellitus with hyperglycemia ([facility]) 01/02/2020 Venous (peripheral) insufficiency 12/21/2015 Vitamin D deficiency 11/26/2015 Previous Surgical History PAST SURGICAL HISTORY Procedure Laterality Date 2D ECHO (EXEP) 12/02/2015 EF=59% mild LVH, mild MR,TR and 2D ECHO (EXEP) 02/13/2020 EF=65%, mild dilated LA, 1+ MR and CHOLECYSTECTOMY Cholecystectomy COLONOSCOPY 11/04/2018 Sessile serrated polyp, Tubullovillous adenoma. Dr. Filemon Galvan. COLONOSCOPY SCRN NOT HIGH RISK 06/10/03 upper and lower EGD 08/17/2009 Dr. Theo Hollins EGD DILATION 11/04/2018 Schatzi's Ring, mild reactive gastropathy. Dr. Filemon Galvan. ESOPHAGOGASTRODUODENOSCOPY TRANSORAL DIAGNOSTIC 06/2003 EGD EXERCISE ECG STRESS TEST 03/02/2020 negative NOSE SURGERY HX 2006 Nasal fracture repair TONSILLECTOMY AND ADENOIDECTOMY HX WRIST SURGERY HX 12/1988 Broken Left wrist surgery at [facility] - Dr. Delgado Family History FAMILY HISTORY Problem Relation Age of Onset Allergies Mother Heart Mother Asthma Mother Alzheimer's Disease Father Heart disease Father Hypertension Father Hypertension Maternal Grandmother DVT Maternal Grandmother Stroke Paternal Grandmother Stroke Paternal Grandfather Hypertension Brother Diabetes Brother Patient Allergies ALLERGIES Allergen Reactions Codeine Rash Penicillins Rash Prednisone Rash Celebrex [Celecoxib] Unknown Niacin Rash Sulfa (Sulfonamide * Rash Current Medications Current Outpatient Medications on File Prior to Visit Medication Sig cefADROxil (DURICEF) 500 mg capsule Take 1 capsule by mouth twice daily for 7 days. glimepiride (AMARYL) 2 mg tablet Take 1 tablet by mouth daily with dinner. lisinopril (ZESTRIL, PRINIVIL) 40 mg tablet Take 1 tablet by mouth twice daily. pioglitazone (ACTOS) 30 mg tablet Take 1 tablet by mouth once daily. amLODIPine (NORVASC) 2.5 mg tablet Take 1 tablet by mouth once daily. aspirin, enteric coated (ASPIRIN, ENTERIC COATED) 81 mg EC tablet Take 81 mg by mouth once daily. Take one tablet daily metFORMIN (GLUCOPHAGE) 500 mg tablet Take by mouth. take 2 tabs w/breakfast;1 tab with lunch and TWO tabs w/ dinner nitroglycerin sublingual (NITROQUICK) 0.4 mg SL tablet Dissolve 1 tablet under the tongue as needed. FOR CHEST PAIN. IF NO RELIEF CALL 911 carvedilol (COREG) 3.125 mg tablet Take 1 tablet by mouth twice daily. furosemide (LASIX) 80 mg tablet Take 0.5 tablets by mouth as needed. pimecrolimus (ELIDEL) 1 % cream Apply to affected area twice daily. lidocaine (LIDODERM) 5 % APPLY 1 PATCH TOPICALLY ONCE DAILY TO MOST PAINFUL AREA. LEAVE ON FOR 12 HOURS AND REMOVE FOR 12 HOURS. blood sugar diagnostic (BLOOD GLUCOSE TEST) test strip Test blood sugar(s) 2 times daily. Dx: Type 2 DM - Uncontrolled E11.65 Insulin: No ibuprofen (MOTRIN) 200 mg tablet Take by mouth. Lancets lancets Test blood sugar(s) 2 times daily. Dx: Type 2 DM - Uncontrolled E11.65 Insulin: No Cholecalciferol, Vitamin D3, 2,000 unit cap Take 3 capsules by mouth once daily. Blood Pressure Cuff - Home Use BLOOD PRESSURE CUFF FOR HOME USE. DX: LABILE BLOOD PRESSURE ACETAMINOPHEN (TYLENOL ARTHRITIS ORAL) Take 1 tablet by mouth every 6 hours. aspirin 325 mg tablet Take 325 mg by mouth one time only. Taken 11/15/2021 pre heart cath (Patient not taking: No sig reported) omega-3 fatty acids 1,000 mg cap Take 2 capsules by mouth once daily. (Patient not taking: Reportedon 01/02/2022) No current facility-administered medications on file prior to visit. Social History Social History Tobacco Use Smoking status: Never Smokeless tobacco: Never Tobacco comments: 2nd hand Vaping Use Vaping Use: Never used Substance Use Topics Alcohol use: No Drug use: No Review of Symptoms REVIEW OF SYSTEMS See HPI EXAM: BP 160/82 (BP Site: Right Arm, BP Position: Sitting, BP Cuff Size: Large Adult) Pulse 76 Resp 18 Wt 116.1 kg (256 lb) LMP (LMP Unknown) BMI 41.32 kg/m General Appearance: Well appearing, alert, in no acute distress, well-hydrated, well nourished.. Skin: left leg still swollen and maybe slightly decreased. The erythema appears the same. Only minimal tenderness at the proximal edge of the erythema and no tenderness below this. There is much lessdrainage. . Health Maintenance List BP CONTROLLED (<130/80) Never done SHINGRIX VACCINE(1 of 2) Never done DILATED RETINAL EXAM due on 08/09/2018 ADVANCE DIRECTIVE DISCUSSION Never done DEPRESSION ASSESSMENT Never done INFLUENZA(1) due on 12/01/2021 HBA1C due on 03/09/2022 DIABETIC FOOT EXAM due on 03/21/2022 LDL CHOLESTEROL due on 09/07/2022 ANNUAL PCP TEAM CHRONIC DISEASE VISIT due on 03/06/2023 DTAP,TDAP,TD(4 - Td or Tdap) due on 12/27/2025 BONE DENSITY Completed COVID-19 VACCINE Completed PNEUMOCOCCAL: 65+ Completed URINE ALBUMIN:CREATININE RATIO Discontinued Data reviewed A/P ASSESSMENT/PLAN: 1. Cellulitis of skin - ICD9: 682.9, ICD10: L03.90 - will extend Tx with Duricef 500 mg twice a day another 7 days for a total of 14 days. check - WOUND CULTURE AND GRAM STAIN Requested Prescriptions Signed Prescriptions Disp Refills cefADROxil (DURICEF) 500 mg capsule 14 capsule 0 Sig: Take 1 capsule by mouth twice daily for 7 days. F/u on 03/29/2022 for re-check Arturo Amaya MD [facility] this [facility]12[facility] Miscellaneous Notes* Telephone Encounter - Arturo Amaya MD - 03/13/2022 4:00 PM EST Noted. * Telephone Encounter - Olga Rosado RN - 03/13/2022 2:02 PM EST Patient returned call and given provider's message below. Pt will follow PCP orders. Pt states she did start the Levaquin on that was originally ordered after her on the 03/[address] Amaya, but states after she took her 3rd dose on Saturday 03/10 she experienced a rapid heart beat and slight shortness of breath for about 45 minutes after taking the medication and believes it was a reaction. She did not take any further doses after that and is aware to start new antibiotic today. Reports leg wound is not any worse and is healing. Area remains red and still seeping some yellow fluid but not as much. No pain unless area is bumped. No current fever and swelling has improved. Olga Rosado RN * Telephone Encounter - Judith Parrish MA - 03/13/2022 9:59 AM EST No answer; no voice mail set up. L/m on daughters phone to have patient contact office. Judith Parrish MA * Telephone Encounter - Kathi Etienne LPN - 03/10/2022 4:36 PM EST Attempted to reach patient no answer, no VM set up. [facility] please call the office. * Telephone Encounter - Arturo Amaya MD - 03/10/2022 4:32 PM EST Let patient know her leg culture shows a bacteria that may not be sensitive to the antibiotic I have her on. Advise her to stop the Levaquin and I sent in a new antibiotic which she has also tolerated in the past. documented in this [facility]12-07-2022 Miscellaneous Notes* Telephone Encounter - Torie Cohen MA - 03/08/2022 1:51 PM EST Patient notified of results, verbalizes understanding of instructions. Torie Cohen MA * Telephone Encounter - Arturo Amaya MD - 03/08/2022 12:47 PM EST Please advise patient she has already been on this medication 3 times in the past without any issue. * Telephone Encounter - Jessika Ayers RN - 03/08/2022 9:16 AM EST Patient calls to ask if provider would be willing to order a different antibiotic for her cellulitis. Patient reports that she read the side effects of the Levaquin and she is afraid to take it. 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 Patient asking for new antibiotic to be sent to [facility]. Jessika Ayers RN documented in this encounterOur [facility]12-05-2022 Instructions* Patient Instructions* Arturo Amaya MD - 03/06/2022 2:16 PM EST I sent in an antibiotic to take once a day for a week I also increased your lisinopril to 40 mg twice a day (instead of once a day) to improve blood pressure control. Please try to take your water pill every day. documented in this encounterOur [facility]12-[facility]-2022 History of Present illness Narrative* Arturo Amaya MD - 03/06/2022 1:29 PM EST Chief Complaint Patient presents with: F/U 6 months HPI Marci Marie is a 82 year old female who presents here today for 6 month follow up. Patient with hx of HTN, HLP, DM2, GERD, aortic stenosis, SAMEER, depression, obesity, and those as below. Patient had her left lower leg scrapped by a dog bone about three weeks ago. Since then she has hadswelling in the left lower extremity along with redness. She has been washing it with a wound can cleaner from [employer] and soapy water. She has been putting on a triple antibiotic as well. No fevers or chills. Though she should be wearing support socks she does not. She claims they give her leg cramps. She also does not take her lasix every day like she should. She holds it on days that she may not be at home due to the urine frequency. She has not had any lasix in the past 2 days. Past medical history, appointments, medications, allergies reviewed. Previous Medical History PAST MEDICAL HISTORY Diagnosis Date Adjustment disorder with depressed mood 01/19/2020 Aortic stenosis, mild 12/02/[address] 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) 07/01/2007 Corns and callus 09/18/2016 Current severe episode of major depressive disorder with psychotic features without prior episode ([facility]) 01/19/2020 Diabetic eye exam ([facility]) 08/21/2016 Last Done: 08/09/2017 No Retinopathy Diaphragmatic hernia without mention of obstruction or gangrene Elevated alkaline phosphatase level 08/28/2018 Elevated serum GGT level 07/03/2017 Essential hypertension 07/13/2014 SAMEER (generalized anxiety disorder) 09/05/2018 Gastroesophageal reflux disease with esophagitis 04/23/2015 Herpes zoster mild occasional neuralgia in left cervical area. Hiatal hernia History of colon polyps Mixed hyperlipidemia Morbid obesity with BMI of 40.0-44.9, adult ([facility]) 06/19/2016 Multiple thyroid nodules 03/24/2021 US 03/2021: Needs yearly f/u for 5 yrs Osteopenia 04/24/2011; Start vitamin d 1,000/day and RE-CHECK 2013 Personal history of other malignant neoplasm of skin 02/26/2009 Schatzki's ring Sebaceous cyst 07/03/2017 lower anterior neck Skin cancer, basal cell 04/23/2015 nose Stricture and stenosis of esophagus egd/dilatation by Dr. Hollins; Tinnitus of both ears 12/26/2021 Due to hearing loss. 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 Dr. Filemon Galvan. COLONOSCOPY SCRN NOT HIGH RISK 06/10/03 upper and lower EGD 08/17/2009 Dr. Theo Hollins EGD DILATION 11/04/2018 Schatzi's Ring, mild reactive gastropathy. Dr. Filemon Galvan. ESOPHAGOGASTRODUODENOSCOPY TRANSORAL DIAGNOSTIC 06/2003 EGD EXERCISE ECG STRESS TEST 03/02/2020 negative NOSE SURGERY HX 2006 Nasal fracture repair TONSILLECTOMY AND ADENOIDECTOMY HX WRIST SURGERY HX 12/1988 Broken Left wrist surgery at [facility] - Dr. Delgado Family History FAMILY HISTORY Problem Relation Age of Onset Allergies Mother Heart Mother Asthma Mother Alzheimer's Disease Father Heart disease Father Hypertension Father Hypertension Maternal Grandmother DVT Maternal Grandmother Stroke Paternal Grandmother Stroke Paternal Grandfather Hypertension Brother Diabetes Brother Patient Allergies ALLERGIES Allergen Reactions Codeine Rash Penicillins Rash Prednisone Rash Celebrex [Celecoxib] Unknown Niacin Rash Sulfa (Sulfonamide * Rash Current Medications Current Outpatient Medications on File Prior to Visit Medication Sig aspirin, enteric coated (ASPIRIN, ENTERIC COATED) 81 mg EC tablet Take 81 mg by mouth once daily. Take one tablet daily glimepiride (AMARYL) 2 mg tablet Take 1 tablet by mouth daily with dinner. metFORMIN (GLUCOPHAGE) 500 mg tablet Take by mouth. take 2 tabs w/breakfast;1 tab with lunch and TWO tabs w/ dinner nitroglycerin sublingual (NITROQUICK) 0.4 mg SL tablet Dissolve 1 tablet under the tongue as needed. FOR CHEST PAIN. IF NO RELIEF CALL 911 aspirin 325 mg tablet Take 325 mg by mouth one time only. Taken 11/15/2021 pre heart cath (Patient not taking: No sig reported) lisinopril (ZESTRIL, PRINIVIL) 40 mg tablet Take 1 tablet by mouth once daily. carvedilol (COREG) 3.125 mg tablet Take 1 tablet by mouth twice daily. furosemide (LASIX) 80 mg tablet Take 0.5 tablets by mouth as needed. pioglitazone (ACTOS) 30 mg tablet Take 1 tablet by mouth once daily. amLODIPine (NORVASC) 2.5 mg tablet Take 1 tablet by mouth once daily. pimecrolimus (ELIDEL) 1 % cream Apply to affected area twice daily. lidocaine (LIDODERM) 5 % APPLY 1 PATCH TOPICALLY ONCE DAILY TO MOST PAINFUL AREA. LEAVE ON FOR 12 HOURS AND REMOVE FOR 12 HOURS. blood sugar diagnostic (BLOOD GLUCOSE TEST) test strip Test blood sugar(s) 2 times daily. Dx: Type 2 DM - Uncontrolled E11.65 Insulin: No ibuprofen (MOTRIN) 200 mg tablet Take by mouth. Lancets lancets Test blood sugar(s) 2 times daily. Dx: Type 2 DM - Uncontrolled E11.65 Insulin: No omega-3 fatty acids 1,000 mg cap Take 2 capsules by mouth once daily. (Patient not taking: Reportedon 01/02/2022) Cholecalciferol, Vitamin D3, 2,000 unit cap Take 3 capsules by mouth once daily. Blood Pressure Cuff - Home Use BLOOD PRESSURE CUFF FOR HOME USE. DX: LABILE BLOOD PRESSURE ACETAMINOPHEN (TYLENOL ARTHRITIS ORAL) Take 1 tablet by mouth every 6 hours. No current facility-administered medications on file prior to visit. Social History Social History Tobacco Use Smoking status: Never Smokeless tobacco: Never Tobacco comments: 2nd hand Vaping Use Vaping Use: Never used Substance Use Topics Alcohol use: No Drug use: No Review of Symptoms REVIEW OF SYSTEMS See HPI EXAM: BP 168/84 (BP Site: Left Arm, BP Position: Sitting, BP Cuff Size: Large Adult) Pulse 77 Resp 18 Wt 116.1 kg (256 lb) LMP (LMP Unknown) SpO2 95% BMI 41.32 kg/m General Appearance: Well appearing, alert, in no acute distress, well-hydrated, well nourished. andMorbidly obese. Extremities: No deformities. Both lower extremities are bumpy/nodule like in appearance form the knees down from 2+ edema. The left lower leg is tender to touch, erythematous and warm to touch. Thereis drainage from the open sores but clear in appearance. (Pics taken) Health Maintenance List BP CONTROLLED (<130/80) Never done SHINGRIX VACCINE(1 of 2) Never done DILATED RETINAL EXAM due on 08/09/2018 ADVANCE DIRECTIVE DISCUSSION Never done DEPRESSION ASSESSMENT Never done INFLUENZA(1) due on 12/01/2021 DIABETIC FOOT EXAM due on 03/21/2022 HBA1C due on 03/09/2022 LDL CHOLESTEROL due on 09/07/2022 ANNUAL PCP TEAM CHRONIC DISEASE VISIT due on 12/26/2022 DTAP,TDAP,TD(4 - Td or Tdap) due on 12/27/2025 BONE DENSITY Completed COVID-19 VACCINE Completed PNEUMOCOCCAL: 65+ Completed URINE ALBUMIN:CREATININE RATIO Discontinued Data reviewed A/P ASSESSMENT/PLAN: 1. Cellulitis of skin - ICD9: 682.9, ICD10: L03.90 (primary diagnosis) - Begin treatment with Levaquin 500 mg daily for 7 days F/u in a week to re-assesses. (Pic's taken) - WOUND CULTURE AND GRAM STAIN 2. Essential hypertension - ICD9: 401.9, ICD10: I10 - suboptimal control - Continue current medication(s) - Increase lisinopril (Zestril/Prinivil) to 40 mg twice a day - Recommended regular aerobic exercise. - Recommend home blood pressure monitoring, to bring results in on next visit - Goal of BP <130/80 - COMP METABOLIC PANEL - URINALYSIS, WITH MICROSCOPIC - LIPID PANEL, NONFASTING 3. 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 Multiple thyroid nodules - ICD9: 241.1, ICD10: E04.2 Check - TSH BLD 5. Mixed hyperlipidemia - ICD9: 272.2, ICD10: E78.2 Check - COMP METABOLIC PANEL - URINALYSIS, WITH MICROSCOPIC - LIPID PANEL, NONFASTING 6. Uncontrolled type 2 diabetes mellitus with hyperglycemia (HCC) - ICD9: 250.02, ICD10: E11.65 Check - ALBUMIN/CREAT RATIO RND UR - COMP METABOLIC PANEL - HGB A1C - URINALYSIS, WITH MICROSCOPIC - LIPID PANEL, NONFASTING - CBC + DIFF 7. Vitamin D deficiency - ICD9: 268.9, ICD10: E55.9 Check - VITAMIN D 25 HYDROXY 8. Medication management - ICD9: V58.69, ICD10: Z79.899 Check labs above. Requested Prescriptions Signed Prescriptions Disp Refills glimepiride (AMARYL) 2 mg tablet 30 tablet 2 Sig: Take 1 tablet by mouth daily with dinner. lisinopril (ZESTRIL, PRINIVIL) 40 mg tablet 180 tablet 1 Sig: Take 1 tablet by mouth twice daily. pioglitazone (ACTOS) 30 mg tablet 90 tablet 1 Sig: Take 1 tablet by mouth once daily. amLODIPine (NORVASC) 2.5 mg tablet 30 tablet 5 Sig: Take 1 tablet by mouth once daily. levoFLOXacin (LEVAQUIN) 500 mg tablet 7 tablet 0 Sig: Take 1 tablet by mouth once daily for 7 days. F/u up cellulitis in a weeks. F/u in a month Medicare extensive and HTN med check Arturo Amaya MD documented in this encounterOur [facility]10-26-2022 Miscellaneous Notes* Telephone Encounter - Roseanne Chance LPN - 01/25/2022 12:30 PM EDT PATIENT NOTIFIED OF SAME. * Telephone Encounter - Judith Parrish MA - 01/25/2022 11:34 AM EDT Attempted to contact patient; no answer; voicemail has not been set up. Judith Parrish MA * Telephone Encounter - Scarlet Jackson Ma - 01/23/2022 3:09 PM EDT Tried to reach pt, VM full, unable to leave message. Scarlet Jackson Ma * Telephone Encounter - Arturo Amaya MD - 01/23/2022 2:51 PM EDT Let patient know BP today was ok. No changes needed. * Telephone Encounter - Roseanne Robson KOWALSKI - 01/23/2022 2:02 PM EDT Manual Readin/79 Pulse: 84 BP Sunny average 138/77 Pulse:80 Repeat BP Check: 147/81 P76 #1 134/74 P79 #2 135/76 P82 #3 137/76 P80 #4 133/76 P84 #5 Home Blood Pressure Cuff reading 151/74 79 Reason for blood pressure check - Last BP elevated and Medication adjustment Patient here due to last blood pressure on 12/26/21 was elevated at 150/84 and HCTZ 25 mg daily wasrestarted to take along with Lisinopril 40 mg, Coreg 3.125 mg twice daily, Lasix 40 mg daily and amlodipine 2.5 mg daily. Does complain of headache today due to had been crying this weekend out of loneliness. Rate pain 5:10 and describes it as dull achy.Treats with Tylenol She currently denies taking HCTZ due to her last appointment with Dr. Hopson he only wanted her to take Lasix. She denies any chest pain, shortness of breath only with exertion. Has no dizziness. Is not a tobacco user and no recent exposure. Does have daily caffeine intake. Alert and oriented. Patient is: Taking medication as prescribed No Patient stated at last cardiology appointment with Dr. Hopson he mentioned to her that he prefers that she only take Lasix 40 mg daily. Took medication today Experiencing side effects No Pt has been identified by name and birthdate: Yes Allergies reviewed: Yes Latex allergy: no. Medication - prescribed and OTC reviewed and updated: Yes Do you need any prescription refills prior to your next visit: No Health Maintenance: Reviewed and up to date documented in this encounterOur [facility] Of [facility]10-24-2022 History of Present illness Narrative* Roseanne Chance LPN - 01/23/2022 1:46 PM EDT Manual Readin/79 Pulse: 84 BP Sunny average 138/77 Pulse:80 Repeat BP Check: 147/81 P76 #1 134/74 P79 #2 135/76 P82 #3 137/76 P80 #4 133/76 P84 #5 Home Blood Pressure Cuff reading 151/74 79 Reason for blood pressure check - Last BP elevated and Medication adjustment Patient here due to last blood pressure on 12/26/21 was elevated at 150/84 and HCTZ 25 mg daily wasrestarted to take along with Lisinopril 40 mg, Coreg 3.125 mg twice daily, Lasix 40 mg daily and amlodipine 2.5 mg daily. She currently denies taking HCTZ due to her last appointment with Dr. Hopson he only wanted her to take Lasix. Does complain of headache today due to had been crying this weekend out of loneliness. Rate pain 5:10 and describes it as dull achy.Treats with Tylenol She denies any chest pain, shortness of breath only with exertion. Has no dizziness. Is not a tobacco user and no recent exposure. Does have daily caffeine intake. Alert and oriented. Patient is: Taking medication as prescribed No Patient stated at last cardiology appointment with Dr. Hopson he mentioned to her that he prefers that she only take Lasix 40 mg daily. Took medication today Experiencing side effects No Pt has been identified by name and birthdate: Yes Allergies reviewed: Yes Latex allergy: no. Medication - prescribed and OTC reviewed and updated: Yes Do you need any prescription refills prior to your next visit: No Health Maintenance: Reviewed and up to date documented in this encounterOur [facility] Of [facility]10-03-2022 Miscellaneous Notes* Telephone Encounter - Poonam Roman LPN - 01/02/2022 1:45 PM EDT Pt advised of same. Pt was transferred to schedule pulm appointment. Poonam Roman LPN * Telephone Encounter - Arturo Amaya MD - 01/02/2022 12:43 PM EDT Advise patient I received input from Dr. Hopson and he advised a pulmonary eval of her shortness of breath. Order placed documented in this encounterOur Lady Of Mercy [facility]10-03-2022 History of Present illness Narrative* Hai Hopson MD - 01/02/2022 12:31 PM EDT Images from the original note were not included. Hai Hopson MD Interventional Cardiology [address] [phone] Chief Complaint Patient presents with: Follow Up HISTORY OF PRESENT ILLNESS: Ms. Marie is a 81 year old female seen in my office today status post cardiac catheterization withleft and right heart cath Patient had cardiac catheterization shows nonobstructive mild luminal irregularities with no obstructive coronary artery disease Medical therapy is recommended She still short of breath with exertion On appropriate medical therapy Cardiac Risk Factors age (male over 45, female over 55), hyperlipidemia, obesity, diabetes, hypertension, family historyof CAD PAST MEDICAL HISTORY Diagnosis Date Adjustment disorder with depressed mood 01/19/2020 Aortic stenosis, mild 12/02/[address] 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 Hiatal hernia History of colon polyps Mixed hyperlipidemia Morbid obesity with BMI of 40.0-44.9, adult ([facility]) 06/19/2016 Multiple thyroid nodules 03/24/2021 03/2021: Needs yearly f/u for 5 yrs Osteopenia 04/24/2011; Start vitamin d 1,000/day and RE-CHECK 2013 Personal history of other malignant neoplasm of skin 02/26/2009 Schatzki's ring Sebaceous cyst 07/03/2017 lower anterior neck Skin cancer, basal cell 04/23/2015 nose Stricture and stenosis of esophagus egd/dilatation by Dr. Hollins; Tinnitus of both ears 12/26/2021 Due to hearing loss. Type 2 diabetes mellitus with proteinuria ([facility]) 07/07/2013 Uncontrolled type 2 diabetes mellitus with hyperglycemia ([facility]) 01/02/2020 Venous (peripheral) insufficiency 12/21/2015 Vitamin D deficiency 11/26/2015 PAST SURGICAL HISTORY Procedure Laterality Date 2D ECHO (EXEP) 12/02/2015 EF=59% mild LVH, mild MR,TR and 2D ECHO (EXEP) 02/13/2020 EF=65%, mild dilated LA, 1+ MR and CHOLECYSTECTOMY Cholecystectomy COLONOSCOPY 11/04/2018 Sessile serrated polyp, Tubullovillous adenoma. Dr. Filemon Galvan. COLONOSCOPY SCRN NOT HIGH RISK 06/10/03 upper and lower EGD 08/17/2009 Dr. Theo Hollins EGD DILATION 11/04/2018 Schatzi's Ring, mild reactive gastropathy. Dr. Filemon Galvan. ESOPHAGOGASTRODUODENOSCOPY TRANSORAL DIAGNOSTIC 06/2003 EGD EXERCISE ECG STRESS TEST 03/02/2020 negative NOSE SURGERY HX 2007 Nasal fracture repair TONSILLECTOMY AND ADENOIDECTOMY HX WRIST SURGERY HX 12/1988 Broken Left wrist surgery at [facility] - Dr. Delgado FAMILY HISTORY Problem Relation Age of Onset Allergies Mother Heart Mother Asthma Mother Alzheimer's Disease Father Heart disease Father Hypertension Father Hypertension Maternal Grandmother DVT Maternal Grandmother Stroke Paternal Grandmother Stroke Paternal Grandfather Hypertension Brother Diabetes Brother Social History Tobacco Use Smoking status: Never Smokeless tobacco: Never Tobacco comments: 2nd hand Vaping Use Vaping Use: Never used Substance Use Topics Alcohol use: No Drug use: No ALLERGIES Allergen Reactions Codeine Rash Penicillins Rash Prednisone Rash Celebrex [Celecoxib] Unknown Niacin Rash Sulfa (Sulfonamide * Rash Medications: Current Outpatient Medications Medication Sig Dispense Refill aspirin, enteric coated (ASPIRIN, ENTERIC COATED) 81 mg EC tablet Take 81 mg by mouth once daily. Take one tablet daily glimepiride (AMARYL) 2 mg tablet Take 1 tablet by mouth daily with dinner. 30 tablet 2 hydroCHLOROthiazide (HYDRODIURIL, ESIDRIX) 25 mg tablet Take 1 tablet by mouth once daily. 90 tablet 1 metFORMIN (GLUCOPHAGE) 500 mg tablet Take by mouth. take 2 tabs w/breakfast;1 tab with lunch and TWO tabs w/ dinner 150 tablet 5 nitroglycerin sublingual (NITROQUICK) 0.4 mg SL tablet Dissolve 1 tablet under the tongue as needed. FOR CHEST PAIN. IF NO RELIEF CALL 911 25 Bottle of 25 2 lisinopril (ZESTRIL, PRINIVIL) 40 mg tablet Take 1 tablet by mouth once daily. 90 tablet 1 carvedilol (COREG) 3.125 mg tablet Take 1 tablet by mouth twice daily. 60 tablet 3 furosemide (LASIX) 80 mg tablet Take 0.5 tablets by mouth as needed. 30 tablet 2 pioglitazone (ACTOS) 30 mg tablet Take 1 tablet by mouth once daily. 90 tablet 1 amLODIPine (NORVASC) 2.5 mg tablet Take 1 tablet by mouth once daily. 30 tablet 5 pimecrolimus (ELIDEL) 1 % cream Apply to affected area twice daily. 30 g 0 lidocaine (LIDODERM) 5 % APPLY 1 PATCH TOPICALLY ONCE DAILY TO MOST PAINFUL AREA. LEAVE ON FOR 12 HOURS AND REMOVE FOR 12 HOURS. blood sugar diagnostic (BLOOD GLUCOSE TEST) test strip Test blood sugar(s) 2 times daily. Dx: Type 2 DM - Uncontrolled E11.65 Insulin: No 100 Strip 11 Lancets lancets Test blood sugar(s) 2 times daily. Dx: Type 2 DM - Uncontrolled E11.65 Insulin: No 100 Each 11 Cholecalciferol, Vitamin D3, 2,000 unit cap Take 3 capsules by mouth once daily. 0 Blood Pressure Cuff - Home Use BLOOD PRESSURE CUFF FOR HOME USE. DX: LABILE BLOOD PRESSURE 1 Device0 ACETAMINOPHEN (TYLENOL ARTHRITIS ORAL) Take 1 tablet by mouth every 6 hours. aspirin 325 mg tablet Take 325 mg by mouth one time only. Taken 11/15/2021 pre heart cath (Patient not taking: No sig reported) ibuprofen (MOTRIN) 200 mg tablet Take by mouth. omega-3 fatty acids 1,000 mg cap Take 2 capsules by mouth once daily. (Patient not taking: Reportedon 01/02/2022) No current facility-administered medications for this visit. Review of Systems Constitutional: Negative for chills, diaphoresis, fever, malaise/fatigue and weight loss. HENT: Negative for congestion, ear discharge, ear pain, hearing loss, nosebleeds, sinus pain, sore throat and tinnitus. Eyes: Negative for blurred vision, double vision, photophobia, pain, discharge and redness. Respiratory: Negative for cough, hemoptysis, sputum production, shortness of breath, wheezing and stridor. Cardiovascular: Negative for chest pain, palpitations, orthopnea, claudication, leg swelling and PND. Gastrointestinal: Negative for abdominal pain, blood in stool, constipation, diarrhea, heartburn, melena, nausea and vomiting. Genitourinary: Negative for dysuria, flank pain, frequency, hematuria and urgency. Musculoskeletal: Negative for back pain, falls, joint pain, myalgias and neck pain. Skin: Negative for itching and rash. Neurological: Negative for dizziness, tingling, tremors, sensory change, speech change, focal weakness, seizures, loss of consciousness, weakness and headaches. Endo/Heme/Allergies: Negative for environmental allergies and polydipsia. Does not bruise/bleed easily. Psychiatric/Behavioral: Negative for depression, hallucinations, memory loss, substance abuse and suicidal ideas. The patient is not nervous/anxious and does not have insomnia. Physical Examination: Vitals:BP 154/74 Pulse 80 Wt 255 lb 6.4 oz (115.8kg) BP w/Orthostatic Vitals Date and Time Orthostatic BP Orthostatic Pulse BP Pulse BP Position BP Site BP Cuff Size 01/02/22 1004 -- -- 154/74 80 -- -- -- Last 2 Encounter Wt Readings: Date: Wt: 01/02/2022 115.8 kg (255 lb 6.4 oz) 12/26/2021 116.6 kg (257 lb) Physical Exam Constitutional: General: She is not in acute distress. Appearance: She is not diaphoretic. HENT: Head: Normocephalic and atraumatic. Right Ear: External ear normal. Left Ear: External ear normal. Nose: Nose normal. Mouth/Throat: Pharynx: Oropharynx is clear. Eyes: General: Right eye: No discharge. Left eye: No discharge. Conjunctiva/sclera: Conjunctivae normal. Pupils: Pupils are equal, round, and reactive to light. Cardiovascular: Rate and Rhythm: Normal rate and regular rhythm. Heart sounds: Normal heart sounds, S1 normal and S2 normal. No murmur heard. No friction rub. No gallop. No S3 or S4 sounds. Pulmonary: Effort: Pulmonary effort is normal. No respiratory distress. Breath sounds: Normal breath sounds. No wheezing or rales. Chest: Chest wall: No tenderness. Musculoskeletal: General: Normal range of motion. Cervical back: Normal range of motion and neck supple. Skin: General: Skin is warm and dry. Neurological: Mental Status: She is alert and oriented to person, place, and time. Psychiatric: Mood and Affect: Mood normal. Thought Content: Thought content normal. Judgment: Judgment normal. Pertinent Labs: CBC: Hemoglobin (g/dL) Date Value 11/22/2021 13.5 03/21/2021 14.5 Hematocrit (%) Date Value 11/22/2021 41.0 03/21/2021 44.6 WBC (k/uL) Date Value 11/22/2021 5.43 03/21/2021 6.96 Platelet Count (k/uL) Date Value 11/22/2021 209 03/21/2021 225 BMP: Glucose (mg/dL) Date Value 11/22/2021 118 03/21/2021 187 Potassium (mmol/L) Date Value 11/22/2021 4.4 03/21/2021 4.3 Sodium (mmol/L) Date Value 11/22/2021 137 03/21/2021 139 Chloride (mmol/L) Date Value 11/22/2021 100 03/21/2021 102 CO2 (mmol/L) Date Value 11/22/2021 27 03/21/2021 25 Creatinine (mg/dL) Date Value 11/22/2021 0.99 03/21/2021 0.76 BUN (mg/dL) Date Value 11/22/2021 25 03/21/2021 19 Anion Gap (mmol/L) Date Value 11/22/2021 10 03/21/2021 12 Calcium (mg/dL) Date Value 03/21/2021 10.1 Calcium, Total (mg/dL) Date Value 12/26/2021 10.0 INR: Lipid Profile: Total Cholesterol, Nonfasting Date Value Ref Range Status 09/07/2021 184 <200 mg/dL Final Comment: <200 mg/dL, Desirable 200-239 mg/dL, Borderline high >239 mg/dL, High HDL Cholesterol, Nonfasting Date Value Ref Range Status 09/07/2021 64 >39 mg/dL Final Comment: 40-59 mg/dL, Acceptable >59 mg/dL, High: Negative risk factor for coronary heart disease <40 mg/dL, Low: Positive risk factor for coronary heart disease LDL Cholesterol, Nonfasting Date Value Ref Range Status 09/07/2021 91 <100 mg/dL Final Comment: <100 mg/dL, Optimal 100-129 mg/dL, Near optimal/above optimal 130-159 mg/dL, Borderline high 160-189 mg/dL, High >189 mg/dL, Very high Secondary prevention optimal LDL Cholesterol levels are recommended to be < 70 mg/dL Triglycerides, Nonfasting Date Value Ref Range Status 09/07/2021 147 <150 mg/dL Final Comment: <150 mg/dL, Normal 150-199 mg/dL, Borderline high 200-499 mg/dL, High >499 mg/dL, Very high Hemoglobin A1C: No results found for: HGBA1C TSH: No results found for: TSHREFL Prior Cardiac Testing none Assessment and Plan: 81 years old mild nonobstructive coronary artery disease on good medical therapy we will continue with the same cardiac medical treatment Coronary artery disease Mild nonobstructive risk factor modification lifestyle changes 2. Shortness of breath Mild pulmonary hypertension with a mean PA pressure of 31 left ventricular end- diastolic pressure is mildly elevated recommended diuretics Recommend suggest pulm evaluation Follow up plannin months Electronically signed by Hai Hopson MD on January 02, 2022, 12:31 PM The above note was partially created using a dictation recognition software. A reasonable attempt has been made to correct any errors. documented in this encounterOur Lady Of [facility]09-27-2022 Miscellaneous Notes* Telephone Encounter - Suzanna Pimentel RN - 12/27/2021 4:54 PM EDT Pt called and is notified of providers results and instructions. Pt voices understanding. Pt will come in and get x-ray done tomorrow. Suzanna Pimentel RN * Telephone Encounter - Arturo Amaya MD - 12/27/2021 2:20 PM EDT Let patient know neck x-rays shows arthritis. It also shows mild slippage of the C5 vertebral body from the C6 vertebral body. I want to get a flexion and extension x-ray to eval stability of this area. If ok will proceed with PHYSICAL THERAPY. documented in this encounterOur Lady Of Mercy [facility]09-06-2022 History of Present illness Narrative* RT Brennon(R) - 12/06/2021 10:40 AM EDT Radiology Service Progress Note PATIENT NAME: Marci Marie DATE OF SERVICE: December 06, 2021 TIME: 3:02 PM PATIENT IDENTITY VERIFICATION COMPLETED USING TWO (2) IDENTIFIERS: Name and Date of confirmedby patient verbally. FALL SCREENING: Has the patient had 2 falls in the last year or 1 fall with injury or currently using an Ambulatory Assistive Device (Walker, Cane, Wheelchair, Crutches, etc.)? No PATIENT GENDER DATA: Female. status: : No status: NO. PATIENT RELEVANT IMPLANT DATA REVIEWED: Yes RADIOLOGY DEPARTMENT: CT; Exam(s) Completed: Brain PERIPHERAL IV DATA: Not applicable SIGNED BY: RT Devaughn(R) December 06, 2021 3:02 PM documented in this encounterOur Lady Of Mercy Hospital08-24-2022 Miscellaneous Notes* Telephone Encounter - Poonam Roman LPN - 11/23/2021 3:01 PM EDT Patient notified of results and provider's instructions. Patient verbalizes understanding. Poonam Roman LPN * Telephone Encounter - Sharona Bettencourt PA-C - 11/23/2021 2:48 PM EDT Let patient know that labs are stable. However her calcium level was a little higher. Repeat in 3-4weeks. Sharona Bettencourt PA-C documented in this encounterOur Lady Of Mercy Hospital08-23-2022 Instructions* Patient Instructions* Sharona Bettencourt PA-C - 11/22/2021 10:09 AM EDT Start daily baby aspirin. Decrease glimepiride to just 2mg with dinner. Stay off of the HCTZ for now. Follow up in 1 month. documented in this encounterOur Lady Of Mercy Hospital08-23-2022 History of Present illness Narrative* Sharona Bettencourt PA-C - 11/22/2021 10:02 AM EDT Chief Complaint Patient presents with: Headache HPI Marci Marie is a 81 year old female who presents here today for Above Complaints.. Patient states that she has had worsening headaches and tinnitus over the past week since her heartcath on 11/15. Headache starts on back of head and then radiates to front. She has noted vision changes with the headache too. She called her eye doctor who felt that symptoms would be more migraine related. Has had low blood sugar readings as well. Patient somewhat difficult to gather HPI due to her wandering thoughts and changing topics after I ask a question.. Past medical history, appointments, medications, allergies reviewed. Previous Medical History PAST MEDICAL HISTORY Diagnosis Date Adjustment disorder with depressed mood 01/19/2020 Aortic stenosis, mild 12/02/[address] Tesfaye: Echo 12/02/2015: Also showed mild TR and MR Bilateral leg edema 05/31/2015 Controlled type 2 diabetes with neuropathy ([facility]) 07/01/2007 Corns and callus 09/18/2016 Current severe episode of major depressive disorder with psychotic features without prior episode ([facility]) 01/19/2020 Diabetic eye exam ([facility]) 08/21/2016 Last Done: 08/09/2017 No Retinopathy Diaphragmatic hernia without mention of obstruction or gangrene Elevated alkaline phosphatase level 08/28/2018 Elevated serum GGT level 07/03/2017 Essential hypertension 07/13/2014 SAMEER (generalized anxiety disorder) 09/05/2018 Gastroesophageal reflux disease with esophagitis 04/23/2015 Herpes zoster mild occasional neuralgia in left cervical area. Hiatal hernia History of colon polyps Mixed hyperlipidemia Morbid obesity with BMI of 40.0-44.9, adult ([facility]) 06/19/2016 Multiple thyroid nodules 03/24/2021 03/2021: Needs yearly f/u for 5 yrs Osteopenia 04/24/2011; Start vitamin d 1,000/day and RE-CHECK 2013 Personal history of other malignant neoplasm of skin 02/26/2009 Schatzki's ring Sebaceous cyst 07/03/2017 lower anterior neck Skin cancer, basal cell 04/23/2015 nose Stricture and stenosis of esophagus egd/dilatation by Dr. Hollins; Type 2 diabetes mellitus with proteinuria ([facility]) 07/07/2013 Uncontrolled type 2 diabetes mellitus with hyperglycemia ([facility]) 01/02/2020 Venous (peripheral) insufficiency 12/21/2015 Vitamin D deficiency 11/26/2015 Previous Surgical History PAST SURGICAL HISTORY Procedure Laterality Date 2D ECHO (EXEP) 12/02/2015 EF=59% mild LVH, mild MR,TR and 2D ECHO (EXEP) 02/13/2020 EF=65%, mild dilated LA, 1+ MR and CHOLECYSTECTOMY Cholecystectomy COLONOSCOPY 11/04/2018 Sessile serrated polyp, Tubullovillous adenoma. Dr. Filemon Galvan. COLONOSCOPY SCRN NOT HIGH RISK 06/10/03 upper and lower EGD 08/17/2009 Dr. Theo Hollins EGD DILATION 11/04/2018 Schatzi's Ring, mild reactive gastropathy. Dr. Filemon Galvan. ESOPHAGOGASTRODUODENOSCOPY TRANSORAL DIAGNOSTIC 06/2003 EGD EXERCISE ECG STRESS TEST 03/02/2020 negative NOSE SURGERY HX 2007 Nasal fracture repair TONSILLECTOMY AND ADENOIDECTOMY HX WRIST SURGERY HX 12/1988 Broken Left wrist surgery at [facility] - Dr. Delgado Family History FAMILY HISTORY Problem Relation Age of Onset Allergies Mother Heart Mother Asthma Mother Alzheimer's Disease Father Heart disease Father Hypertension Father Hypertension Maternal Grandmother DVT Maternal Grandmother Stroke Paternal Grandmother Stroke Paternal Grandfather Hypertension Brother Diabetes Brother Patient Allergies ALLERGIES Allergen Reactions Codeine Rash Penicillins Rash Prednisone Rash Celebrex [Celecoxib] Unknown Niacin Rash Sulfa (Sulfonamide * Rash Current Medications Current Outpatient Medications on File Prior to Visit Medication Sig cephALEXin (KEFLEX) 500 mg capsule Take 1 capsule by mouth twice daily for 7 days. metFORMIN (GLUCOPHAGE) 500 mg tablet Take by mouth. take 2 tabs w/breakfast;1 tab with lunch and TWO tabs w/ dinner nitroglycerin sublingual (NITROQUICK) 0.4 mg SL tablet Dissolve 1 tablet under the tongue as needed. FOR CHEST PAIN. IF NO RELIEF CALL 911 aspirin 325 mg tablet Take 325 mg by mouth one time only. Taken 11/15/2021 pre heart cath glimepiride (AMARYL) 4 mg tablet Take 1 tablet by mouth twice daily with meals. lisinopril (ZESTRIL, PRINIVIL) 40 mg tablet Take 1 tablet by mouth once daily. carvedilol (COREG) 3.125 mg tablet Take 1 tablet by mouth twice daily. furosemide (LASIX) 80 mg tablet Take 0.5 tablets by mouth as needed. pioglitazone (ACTOS) 30 mg tablet Take 1 tablet by mouth once daily. amLODIPine (NORVASC) 2.5 mg tablet Take 1 tablet by mouth once daily. pimecrolimus (ELIDEL) 1 % cream Apply to affected area twice daily. lidocaine (LIDODERM) 5 % APPLY 1 PATCH TOPICALLY ONCE DAILY TO MOST PAINFUL AREA. LEAVE ON FOR 12 HOURS AND REMOVE FOR 12 HOURS. blood sugar diagnostic (BLOOD GLUCOSE TEST) test strip Test blood sugar(s) 2 times daily. Dx: Type 2 DM - Uncontrolled E11.65 Insulin: No ibuprofen (MOTRIN) 200 mg tablet Take by mouth. Lancets lancets Test blood sugar(s) 2 times daily. Dx: Type 2 DM - Uncontrolled E11.65 Insulin: No omega-3 fatty acids 1,000 mg cap Take 2 capsules by mouth once daily. Cholecalciferol, Vitamin D3, 2,000 unit cap Take 3 capsules by mouth once daily. Blood Pressure Cuff - Home Use BLOOD PRESSURE CUFF FOR HOME USE. DX: LABILE BLOOD PRESSURE ACETAMINOPHEN (TYLENOL ARTHRITIS ORAL) Take 1 tablet by mouth every 6 hours. hydroCHLOROthiazide (HYDRODIURIL, ESIDRIX) 25 mg tablet Take 1 tablet by mouth once daily. (Patientnot taking: Reported on 11/22/2021) No current facility-administered medications on file prior to visit. Social History Social History Tobacco Use Smoking status: Never Smokeless tobacco: Never Tobacco comments: 2nd hand Vaping Use Vaping Use: Never used Substance Use Topics Alcohol use: No Drug use: No Review of Symptoms REVIEW OF SYSTEMS See hpi EXAM: BP 110/72 (BP Site: Left Arm, BP Position: Sitting, BP Cuff Size: Large Adult) Pulse 72 Temp 36.3 C (97.4 F) Resp 18 Wt 109.8 kg (242 lb) LMP (LMP Unknown) BMI 39.06 kg/m General Appearance: Well appearing, alert, in no acute distress, well-hydrated, well nourished. andObese. Neck: Supple, no adenopathy; thyroid symmetric, normal size, no bruits. Lungs: Lungs clear to auscultation. No wheezing, rhonchi, rales.. Heart: RRR without murmur, gallop, or rubs. No ectopy. Extremities: No deformities, edema, skin discoloration, clubbing or cyanosis. Good capillary refill. . Peripheral Pulses: Normal. Head: atraumatic. No tenderness to palp. Eyes: PERRLA. Health Maintenance List BP CONTROLLED (<130/80) Never done SHINGRIX VACCINE(1 of 2) Never done DILATED RETINAL EXAM due on 08/09/2018 ADVANCE DIRECTIVE DISCUSSION Never done COVID-19 VACCINE(4 - Booster for Pfizer series) due on 09/20/2021 INFLUENZA(1) due on 12/01/2021 HBA1C due on 03/09/2022 DIABETIC FOOT EXAM due on 03/21/2022 LDL CHOLESTEROL due on 09/07/2022 ANNUAL PCP TEAM CHRONIC DISEASE VISIT due on 09/07/2022 DTAP,TDAP,TD(4 - Td or Tdap) due on 12/27/2025 BONE DENSITY Completed PNEUMOCOCCAL: 65+ Completed URINE ALBUMIN:CREATININE RATIO Discontinued DEPRESSION SCREENING Discontinued Data reviewed ASSESSMENT/PLAN: 1. Headache, new daily persistent (NDPH) - ICD9: 339.42, ICD10: G44.52 (primary diagnosis) Check: - CT BRAIN WO IVCON - COMP METABOLIC PANEL - CBC + DIFF - TSH BLD - VITAMIN B12 BLOOD 2. Tinnitus of both ears - ICD9: 388.30, ICD10: H93.13 Check: - CT BRAIN WO IVCON - COMP METABOLIC PANEL - CBC + DIFF - TSH BLD - VITAMIN B12 BLOOD 3. Hypoglycemia - ICD9: 251.2, ICD10: E16.2 Decrease glimepiride. - CT BRAIN WO IVCON - COMP METABOLIC PANEL - CBC + DIFF - TSH BLD - VITAMIN B12 BLOOD Follow up in 1 month or sooner prn. Sharona Bettencourt PA-C documented in this encounterOur [facility] Of [facility]08-19-[facility]22 History of Present illness Narrative* Elizabeth Yañez, TIMUR.DIESEL MAINTENANCE TECHNICIAN - 11/18/2021 1:25 PM EDT Subjective HPI Marci Marie is a 81 year old female who presents with possible uti, has had some urinary burning and an increase in her tinnitus. States she hears music and other things like bees buzzing and cars starting. This is not new, has seen ENT in the past for same. She wonders if this could be caused by taking her metformin. She denies fever. No visual hallucinations. Review of Systems Constitutional: Negative for fever. Respiratory: Negative. Cardiovascular: Negative. Gastrointestinal: Negative for abdominal pain, nausea and vomiting. Genitourinary: Positive for dysuria. Negative for frequency, hematuria and urgency. Musculoskeletal: Positive for back pain. BP 132/74 Pulse 78 Temp 36.6 C (97.9 F) Resp 18 Wt 110.2 kg (243 lb) LMP (LMP Unknown) SpO2 96% BMI 39.22 kg/m PAST MEDICAL HISTORY Diagnosis Date Adjustment disorder with depressed mood 01/19/2020 Aortic stenosis, mild 12/02/[address] 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) 07/01/2007 Corns and callus 09/18/2016 Current severe episode of major depressive disorder with psychotic features without prior episode ([facility]) 01/19/2020 Diabetic eye exam ([facility]) 08/21/2016 Last Done: 08/09/2017 No Retinopathy Diaphragmatic hernia without mention of obstruction or gangrene Elevated alkaline phosphatase level 08/28/2018 Elevated serum GGT level 07/03/2017 Essential hypertension 07/13/2014 SAMEER (generalized anxiety disorder) 09/05/2018 Gastroesophageal reflux disease with esophagitis 04/23/2015 Herpes zoster mild occasional neuralgia in left cervical area. Hiatal hernia History of colon polyps Mixed hyperlipidemia Morbid obesity with BMI of 40.0-44.9, adult ([facility]) 06/19/2016 Multiple thyroid nodules 03/24/2021 03/2021: Needs yearly f/u for 5 yrs Osteopenia 04/24/2011; Start vitamin d 1,000/day and RE-CHECK 2013 Personal history of other malignant neoplasm of skin 02/26/2009 Schatzki's ring Sebaceous cyst 07/03/2017 lower anterior neck Skin cancer, basal cell 04/23/2015 nose Stricture and stenosis of esophagus egd/dilatation by Dr. Hollins; Type 2 diabetes mellitus with proteinuria ([facility]) 07/07/2013 Uncontrolled type 2 diabetes mellitus with hyperglycemia ([facility]) 01/02/2020 Venous (peripheral) insufficiency 12/21/2015 Vitamin D deficiency 11/26/2015 PAST SURGICAL HISTORY Procedure Laterality Date 2D ECHO (EXEP) 12/02/2015 EF=59% mild LVH, mild MR,TR and 2D ECHO (EXEP) 02/13/2020 EF=65%, mild dilated LA, 1+ MR and CHOLECYSTECTOMY Cholecystectomy COLONOSCOPY 11/04/2018 Sessile serrated polyp, Tubullovillous adenoma. Dr. Filemon Galvan. COLONOSCOPY SCRN NOT HIGH RISK 06/10/03 upper and lower EGD 08/17/2009 Dr. Theo Hollins EGD DILATION 11/04/2018 Schatzi's Ring, mild reactive gastropathy. Dr. Filemon Galvan. ESOPHAGOGASTRODUODENOSCOPY TRANSORAL DIAGNOSTIC 06/2003 EGD EXERCISE ECG STRESS TEST 03/02/2020 negative NOSE SURGERY HX 2006 Nasal fracture repair TONSILLECTOMY AND ADENOIDECTOMY HX WRIST SURGERY HX 12/1988 Broken Left wrist surgery at [facility] - Dr. Delgado ALLERGIES Codeine, Penicillins, Prednisone, Celebrex [Celecoxib], Niacin, and Sulfa (Sulfonamide Antibiotics) MEDICATIONS metFORMIN (GLUCOPHAGE) 500 mg tablet Take by mouth. take 2 tabs w/breakfast;1 tab with lunch and TWO tabs w/ dinner nitroglycerin sublingual (NITROQUICK) 0.4 mg SL tablet Dissolve 1 tablet under the tongue as needed. FOR CHEST PAIN. IF NO RELIEF CALL 911 aspirin 325 mg tablet Take 325 mg by mouth one time only. Taken 11/15/2021 pre heart cath glimepiride (AMARYL) 4 mg tablet Take 1 tablet by mouth twice daily with meals. lisinopril (ZESTRIL, PRINIVIL) 40 mg tablet Take 1 tablet by mouth once daily. carvedilol (COREG) 3.125 mg tablet Take 1 tablet by mouth twice daily. furosemide (LASIX) 80 mg tablet Take 0.5 tablets by mouth as needed. pioglitazone (ACTOS) 30 mg tablet Take 1 tablet by mouth once daily. pimecrolimus (ELIDEL) 1 % cream Apply to affected area twice daily. lidocaine (LIDODERM) 5 % APPLY 1 PATCH TOPICALLY ONCE DAILY TO MOST PAINFUL AREA. LEAVE ON FOR 12 HOURS AND REMOVE FOR 12 HOURS. hydroCHLOROthiazide (HYDRODIURIL, ESIDRIX) 25 mg tablet Take 1 tablet by mouth once daily. blood sugar diagnostic (BLOOD GLUCOSE TEST) test strip Test blood sugar(s) 2 times daily. Dx: Type 2 DM - Uncontrolled E11.65 Insulin: No ibuprofen (MOTRIN) 200 mg tablet Take by mouth. Lancets lancets Test blood sugar(s) 2 times daily. Dx: Type 2 DM - Uncontrolled E11.65 Insulin: No omega-3 fatty acids 1,000 mg cap Take 2 capsules by mouth once daily. Cholecalciferol, Vitamin D3, 2,000 unit cap Take 3 capsules by mouth once daily. Blood Pressure Cuff - Home Use BLOOD PRESSURE CUFF FOR HOME USE. DX: LABILE BLOOD PRESSURE ACETAMINOPHEN (TYLENOL ARTHRITIS ORAL) Take 1 tablet by mouth every 6 hours. cephALEXin (KEFLEX) 500 mg capsule Take 1 capsule by mouth twice daily for 7 days. amLODIPine (NORVASC) 2.5 mg tablet Take 1 tablet by mouth once daily. FAMILY HISTORY Problem Relation Age of Onset Allergies Mother Heart Mother Asthma Mother Alzheimer's Disease Father Heart disease Father Hypertension Father Hypertension Maternal Grandmother DVT Maternal Grandmother Stroke Paternal Grandmother Stroke Paternal Grandfather Hypertension Brother Diabetes Brother Social History Tobacco Use Smoking status: Never Smokeless tobacco: Never Tobacco comments: 2nd hand Vaping Use Vaping Use: Never used Substance Use Topics Alcohol use: No Drug use: No Objective Physical Exam Vitals and nursing note reviewed. Constitutional: Appearance: Normal appearance. HENT: Right Ear: Tympanic membrane, ear canal and external ear normal. Left Ear: Tympanic membrane, ear canal and external ear normal. Cardiovascular: Rate and Rhythm: Normal rate and regular rhythm. Pulmonary: Effort: Pulmonary effort is normal. Breath sounds: Normal breath sounds. Abdominal: Tenderness: There is no right CVA tenderness or left CVA tenderness. Skin: General: Skin is warm and dry. Neurological: Mental Status: She is alert and oriented to person, place, and time. Psychiatric: Mood and Affect: Mood normal. Behavior: Behavior normal. ASSESSMENT/PLAN: 1. Burning with urination - ICD9: 788.1, ICD10: R30.0 (primary diagnosis) acute - UA positive for maría elena esterase - Send urine for culture - Begin treatment with cephalexin for 7 days - Patient education for prevention given - UA DIP, URINE (POC) - URINE CULTURE - CEPHALEXIN 500 MG CAPSULE 2. Tinnitus, bilateral - ICD9: 388.30, ICD10: H93.13 - unlikely that this is a side effect of taking your metformin. - if not resolving after treatment of UTI, follow up with PCP. - Follow-up with your PCP in 3-5 days if symptoms have not improved or sooner if symptoms worsen - Discussed red flags and need for immediate medical evaluation if any occur. - Discussed supportive care treatment with fluids, rest and analgesia. - Discussed expected course of illness Elizabeth Yañez APRN.CNP documented in this encounterOur Lady Of Mer[facility]08-19-2022 Instructions* Patient Instructions* Elizabeth Yañez APRN.CNP - 11/18/2021 1:25 PM EDT ASSESSMENT/PLAN: 1. Burning with urination - ICD9: 788.1, ICD10: R30.0 (primary diagnosis) acute - UA positive for maría elena esterase - Send urine for culture - Begin treatment with cephalexin for 7 days - Patient education for prevention given - UA DIP, URINE (POC) - URINE CULTURE - CEPHALEXIN 500 MG CAPSULE 2. Tinnitus, bilateral - ICD9: 388.30, ICD10: H93.13 - unlikely this is a side effect of taking your metformin. - if not resolving after treatment of UTI, follow up with PCP. - Follow-up with your PCP in 3-5 days if symptoms have not improved or sooner if symptoms worsen - Discussed red flags and need for immediate medical evaluation if any occur. - Discussed supportive care treatment with fluids, rest and analgesia. - Discussed expected course of illness Elizabeth Yañez APRN.RITA documented in this encounterOur Lady Of Mercy [facility]08-16-2022 NoteHNO ID: [id number] Author: Hai Hopson MD Service: Interventional Cardiology Author Type: Physician Type: Procedures Filed: 11/15/2021 9:09 AM Note Text: LEFT HEART CATHETERIZATION PROCEDURE NOTE Surgery/Procedure Date: 11/15/2021 Referring Physician: Clinical History: This is a 81 year old female with Exertional shortness of breath for coronary angiography. Consent: Informed consent was obtained after the risks, benefits, and alternatives to and of this procedure were discussed in detail with the patient. Procedure in Detail: The patient was brought to the cardiac catheterization laboratory, prepped and draped in the usual sterile fashion. Anxiolysis was achieved with intravenous and intravenous benadryl. Local anesthesia was achieved over the wrist with 1% lidocaine. A pre-flushed 6-Mongolian sheath was inserted into the Right radial artery via the Seldinger technique without complications. Retrograde percutaneous diagnostic coronary angiography and left ventriculography were performed using a Padmini left 4 catheter, a 3-D RC catheter, and an angled pigtail catheter. There were no complications of the procedure. Findings: Angiography: LEFT MAIN: Normal. LEFT CIRCUMFLEX: Normal . LEFT ANTERIOR DESCENDING: Normal . RIGHT CORONARY ARTERY: Dominant Normal. LEFT VENTRICULOGRAPHY: Normal LV size and function LVEF= 60 % Rigth heart cath : Mild pulmonary hypertension RVSP 33 mmHg. PWP 31 mmHg. At this point, the procedure was terminated. All diagnostic wires and catheters were removed. Recommendations: 1. Daily aspirin indefinitely 2. Medical therapy 3. Statin use 4. Secondary cardiac prevention measures. SIGNATURE: Hai Hopson MD PATIENT NAME: Marci Marie DATE: November 15, 2021 TIME: 9:06 [facility]07-29-2022 Miscellaneous Notes* Telephone Encounter - Daylin Ellis RN - 10/28/2021 2:15 PM EDT Patient returned call and given provider's message below with verbalized understanding. * Telephone Encounter - Aster Pichardo LPN - 10/28/2021 2:14 PM EDT Phone call placed x2, no answer unable to leave a message voicemail box reported as not set up. Aster Pichardo LPN * Telephone Encounter - Sharona Bettencourt PA-C - 10/28/2021 1:20 PM EDT Repeat calcium level normal. documented in this encounterOur Lady Of Mercy [facility]07-28-2022 Miscellaneous Notes* Telephone Encounter - Ginny Sewell LPN - 10/27/2021 12:52 PM EDT Patient has been identified by name and date of : Yes Patient phones for refill(s): Pending Prescriptions Disp Refills GLIMEPIRIDE 4 MG TABLET 60 tablet 5 Sig: Take 1 tablet by mouth twice daily with meals. JOSIE: No LISINOPRIL 40 MG TABLET 90 tablet 1 Sig: Take 1 tablet by mouth once daily. JOSIE: No Date of last office visit in primary care: 09/07/2021, no future appt scheduled Last 2 Encounter Wt Readings: Date: Wt: 10/24/2021 113.4 kg (250 lb) 09/16/2021 110.3 kg (243 lb 3.2 oz) Previous labs/tests for medication: Diabetes: Hemoglobin A1C (%) Date Value 09/07/2021 7.8 03/21/2021 7.8 08/23/2020 6.8 Blood Pressure: BUN (mg/dL) Date Value 09/07/2021 21 03/21/2021 19 Sodium (mmol/L) Date Value 09/07/2021 134 03/21/2021 139 Last 1 Encounter BP Readings: Date: BP: 10/24/2021 180/80 Please advise. Thank you. Ginny Donato KOWALSKI Patient said having heart cath done in October, she said she had labs done today. documented in this encounterOur Lady Of Mercy Hospital07-25-2022 Miscellaneous Notes* Telephone Encounter - Hyun Vallecillo RN - 10/24/2021 3:24 PM EDT Patient scheduled for left heart cath, with Dr Hopson on 11/15/21. Instructions reviewed. Questions answered. Patient verbalized understanding. Instructions were as follows: -Arrive to [facility] H&V Entrance at time assigned by [facility] blood bank laboratory professional staff in phone call 11/14/21 PM. -Pt to increase po water intake day prior to heart cath. Pt may eat a light meal and drink clear liquids until 3 hours prior to procedure. -With a sip of water on 11/15/21 morning take: Aspirin 325 mg along with usual BP meds- carvedilol,lisinopril. Hold Metformin on 11/14/21 and 11/15/21. -Labs to be done by 11/04/21. - You must have someone drive you home from your procedure. Hyun Vallecillo RN -blood bank laboratory professional policy is pt not be alone first evening Office phone number provided for questions or concerns. * Telephone Encounter - [facility]isha [facility] - 10/24/2021 2:35 PM EDT Reschedule R&LHC on 11/15/[address] Hopson Electronically signed by Denisha Hutchinson [facility] at 10/24/2021 2:36 PM EDT * Telephone Encounter - Beverly Valdez RN - 10/24/2021 1:14 PM EDT Pt reports she does not have transportation 11/07, 11/08, 11/09 or 11/10. Any other days will work. Beverly Valdez RN * Telephone Encounter - Denisha Hutchinson [facility] - 10/24/2021 12:09 PM EDT Schedule LHC on 11/08/[address] Hopson Electronically signed by Denisha Hutchinson [facility] at 10/24/2021 12:10 PM EDT documented in this encounterOur Lady Of Mercy Hospital07-25-2022 History of Present illness Narrative* Hai Hopson MD - 10/24/2021 10:36 AM EDT Images from the original note were not included. Hai Hopson MD Interventional Cardiology [facility] [address], [place] [address] [phone] Chief Complaint Patient presents with: Consult HISTORY OF PRESENT ILLNESS: Ms. Marie is a 81 year old female seen in my office today for assessment and management of shortness of breath and not feeling well patient had longstanding history of hypertensive heart disease with mild aortic stenosis by echocardiography with prior history of congestive heart failure and preserved left ventricular ejection fraction Patient noticed over the last 4 months now she had limiting exertional dyspnea any physical activity will make extremely short of breath she become tachycardic with palpitations she has to stop afterminimal exertion patient ran out of her Lasix and beta-blockers and she did not refill the medications blood pressures in my office today is poorly controlled with a systolic blood pressure is 180 She also described chest tightness with exertion concerning for underlying obstructive coronary artery disease Patient is tachycardic in my office with a heart rate of 100 07 sinus tachycardia EKG blood pressure is 180/80 clinically she is not in congestive heart failure with bilateral mild lower edema Cardiac Risk Factors age (male over 45, female over 55), hyperlipidemia, history of smoking, diabetes, hypertension, family history of CAD PAST MEDICAL HISTORY Diagnosis Date Adjustment disorder with depressed mood 01/19/2020 Aortic stenosis, mild 12/02/[address] 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 Hiatal hernia History of colon polyps Mixed hyperlipidemia Morbid obesity with BMI of 40.0-44.9, adult ([facility]) 06/19/2016 Multiple thyroid nodules 03/24/2021 03/2021: Needs yearly f/u for 5 yrs Osteopenia 04/24/2011; Start vitamin d 1,000/day and RE-CHECK 2013 Personal history of other malignant neoplasm of skin 02/26/2009 Schatzki's ring Sebaceous cyst 07/03/2017 lower anterior neck Skin cancer, basal cell 04/23/2015 nose Stricture and stenosis of esophagus egd/dilatation by Dr. Hollins; Type 2 diabetes mellitus with proteinuria ([facility]) 07/07/2013 Uncontrolled type 2 diabetes mellitus with hyperglycemia ([facility]) 01/02/2020 Venous (peripheral) insufficiency 12/21/2015 Vitamin D deficiency 11/26/2015 PAST SURGICAL HISTORY Procedure Laterality Date 2D ECHO (EXEP) 12/02/2015 EF=59% mild LVH, mild MR,TR and 2D ECHO (EXEP) 02/13/2020 EF=65%, mild dilated LA, 1+ MR and CHOLECYSTECTOMY Cholecystectomy COLONOSCOPY 11/04/2018 Sessile serrated polyp, Tubullovillous adenoma. Dr. Filemon Galvan. COLONOSCOPY SCRN NOT HIGH RISK 06/10/03 upper and lower EGD 08/17/2009 Dr. Theo Hollins EGD DILATION 11/04/2018 Schatzi's Ring, mild reactive gastropathy. Dr. Filemon Galvan. ESOPHAGOGASTRODUODENOSCOPY TRANSORAL DIAGNOSTIC 06/2003 EGD EXERCISE ECG STRESS TEST 03/02/2020 negative NOSE SURGERY HX 2006 Nasal fracture repair TONSILLECTOMY AND ADENOIDECTOMY HX WRIST SURGERY HX 12/1988 Broken Left wrist surgery at [facility] - Dr. Delgado FAMILY HISTORY Problem Relation Age of Onset Allergies Mother Heart Mother Asthma Mother Alzheimer's Disease Father Heart disease Father Hypertension Father Hypertension Maternal Grandmother DVT Maternal Grandmother Stroke Paternal Grandmother Stroke Paternal Grandfather Hypertension Brother Diabetes Brother Social History Tobacco Use Smoking status: Never Smoker Smokeless tobacco: Never Used Tobacco comment: 2nd hand Vaping Use Vaping Use: Never used Substance Use Topics Alcohol use: No Drug use: No ALLERGIES Allergen Reactions Codeine Rash Penicillins Rash Prednisone Rash Celebrex [Celecoxib] Unknown Niacin Rash Sulfa (Sulfonamide * Rash Medications: Current Outpatient Medications Medication Sig Dispense Refill carvedilol (COREG) 3.125 mg tablet Take 1 tablet by mouth twice daily. 60 tablet 3 furosemide (LASIX) 80 mg tablet Take 0.5 tablets by mouth as needed. 30 tablet 2 pioglitazone (ACTOS) 30 mg tablet Take 1 tablet by mouth once daily. 90 tablet 1 amLODIPine (NORVASC) 2.5 mg tablet Take 1 tablet by mouth once daily. 30 tablet 5 pimecrolimus (ELIDEL) 1 % cream Apply to affected area twice daily. 30 g 0 lidocaine (LIDODERM) 5 % APPLY 1 PATCH TOPICALLY ONCE DAILY TO MOST PAINFUL AREA. LEAVE ON FOR 12 HOURS AND REMOVE FOR 12 HOURS. metFORMIN (GLUCOPHAGE) 500 mg tablet Take by mouth. take 2 tabs w/breakfast;1 tab with lunch and TWO tabs w/ dinner 150 tablet 5 lisinopril (ZESTRIL, PRINIVIL) 40 mg tablet Take 1 tablet by mouth once daily. 90 tablet 1 hydroCHLOROthiazide (HYDRODIURIL, ESIDRIX) 25 mg tablet Take 1 tablet by mouth once daily. 90 tablet 1 glimepiride (AMARYL) 4 mg tablet Take 1 tablet by mouth twice daily with meals. 60 tablet 5 blood sugar diagnostic (BLOOD GLUCOSE TEST) test strip Test blood sugar(s) 2 times daily. Dx: Type 2 DM - Uncontrolled E11.65 Insulin: No 100 Strip 11 ibuprofen (MOTRIN) 200 mg tablet Take by mouth. Lancets lancets Test blood sugar(s) 2 times daily. Dx: Type 2 DM - Uncontrolled E11.65 Insulin: No 100 Each 11 nitroglycerin sublingual (NITROQUICK) 0.4 mg SL tablet Dissolve 1 tablet under the tongue as needed. FOR CHEST PAIN. IF NO RELIEF CALL 911 25 Bottle of 25 2 omega-3 fatty acids 1,000 mg cap Take 2 capsules by mouth once daily. Cholecalciferol, Vitamin D3, 2,000 unit cap Take 3 capsules by mouth once daily. 0 Blood Pressure Cuff - Home Use BLOOD PRESSURE CUFF FOR HOME USE. DX: LABILE BLOOD PRESSURE 1 Device0 ACETAMINOPHEN (TYLENOL ARTHRITIS ORAL) Take 1 tablet by mouth every 6 hours. No current facility-administered medications for this visit. Review of Systems Constitutional: Negative for chills, diaphoresis, fever, malaise/fatigue and weight loss. HENT: Negative for congestion, ear discharge, ear pain, hearing loss, nosebleeds, sinus pain, sore throat and tinnitus. Eyes: Negative for blurred vision, double vision, photophobia, pain, discharge and redness. Respiratory: Positive for sputum production and shortness of breath. Negative for cough, hemoptysis, wheezing and stridor. Cardiovascular: Negative for chest pain, palpitations, orthopnea, claudication, leg swelling and PND. Gastrointestinal: Negative for abdominal pain, blood in stool, constipation, diarrhea, heartburn, melena, nausea and vomiting. Genitourinary: Negative for dysuria, flank pain, frequency, hematuria and urgency. Musculoskeletal: Negative for back pain, falls, joint pain, myalgias and neck pain. Skin: Negative for itching and rash. Neurological: Negative for dizziness, tingling, tremors, sensory change, speech change, focal weakness, seizures, loss of consciousness, weakness and headaches. Endo/Heme/Allergies: Negative for environmental allergies and polydipsia. Does not bruise/bleed easily. Psychiatric/Behavioral: Negative for depression, hallucinations, memory loss, substance abuse and suicidal ideas. The patient is not nervous/anxious and does not have insomnia. Physical Examination: Vitals:BP 180/80 Pulse 112 Wt 250 lb (113.4kg) BP w/Orthostatic Vitals Date and Time Orthostatic BP Orthostatic Pulse BP Pulse BP Position BP Site BP Cuff Size 10/24/21 0946 -- -- 180/80 112 Sitting Right Arm Large Adult Last 2 Encounter Wt Readings: Date: Wt: 10/24/2021 113.4 kg (250 lb) 09/16/2021 110.3 kg (243 lb 3.2 oz) Physical Exam Constitutional: General: She is not in acute distress. Appearance: She is not diaphoretic. HENT: Head: Normocephalic and atraumatic. Right Ear: External ear normal. Left Ear: External ear normal. Nose: Nose normal. Mouth/Throat: Pharynx: Oropharynx is clear. Eyes: General: Right eye: No discharge. Left eye: No discharge. Conjunctiva/sclera: Conjunctivae normal. Pupils: Pupils are equal, round, and reactive to light. Cardiovascular: Rate and Rhythm: Normal rate and regular rhythm. Heart sounds: Normal heart sounds, S1 normal and S2 normal. No murmur heard. No friction rub. No gallop. No S3 or S4 sounds. Pulmonary: Effort: Pulmonary effort is normal. No respiratory distress. Breath sounds: Normal breath sounds. No wheezing or rales. Chest: Chest wall: No tenderness. Musculoskeletal: General: Normal range of motion. Cervical back: Normal range of motion and neck supple. Skin: General: Skin is warm and dry. Neurological: Mental Status: She is alert and oriented to person, place, and time. Psychiatric: Mood and Affect: Mood normal. Behavior: Behavior normal. Thought Content: Thought content normal. Judgment: Judgment normal. Pertinent Labs: CBC: Hemoglobin (g/dL) Date Value 03/21/2021 14.5 Hematocrit (%) Date Value 03/21/2021 44.6 WBC (k/uL) Date Value 03/21/2021 6.96 Platelet Count (k/uL) Date Value 03/21/2021 225 BMP: Glucose (mg/dL) Date Value 09/07/2021 300 03/21/2021 187 Potassium (mmol/L) Date Value 09/07/2021 4.4 03/21/2021 4.3 Sodium (mmol/L) Date Value 09/07/2021 134 03/21/2021 139 Chloride (mmol/L) Date Value 09/07/2021 97 03/21/2021 102 CO2 (mmol/L) Date Value 09/07/2021 25 03/21/2021 25 Creatinine (mg/dL) Date Value 09/07/2021 0.78 03/21/2021 0.76 BUN (mg/dL) Date Value 09/07/2021 21 03/21/2021 19 Anion Gap (mmol/L) Date Value 09/07/2021 12 03/21/2021 12 Calcium (mg/dL) Date Value 03/21/2021 10.1 Calcium, Total (mg/dL) Date Value 09/07/2021 10.3 INR: Lipid Profile: Total Cholesterol, Nonfasting Date Value Ref Range Status 09/07/2021 184 <200 mg/dL Final Comment: <200 mg/dL, Desirable 200-239 mg/dL, Borderline high >239 mg/dL, High HDL Cholesterol, Nonfasting Date Value Ref Range Status 09/07/2021 64 >39 mg/dL Final Comment: 40-59 mg/dL, Acceptable >59 mg/dL, High: Negative risk factor for coronary heart disease <40 mg/dL, Low: Positive risk factor for coronary heart disease LDL Cholesterol, Nonfasting Date Value Ref Range Status 09/07/2021 91 <100 mg/dL Final Comment: <100 mg/dL, Optimal 100-129 mg/dL, Near optimal/above optimal 130-159 mg/dL, Borderline high 160-189 mg/dL, High >189 mg/dL, Very high Secondary prevention optimal LDL Cholesterol levels are recommended to be < 70 mg/dL Triglycerides, Nonfasting Date Value Ref Range Status 09/07/2021 147 <150 mg/dL Final Comment: <150 mg/dL, Normal 150-199 mg/dL, Borderline high 200-499 mg/dL, High >499 mg/dL, Very high Hemoglobin A1C: No results found for: HGBA1C TSH: No results found for: TSHREFL Prior Cardiac Testing EKG Assessment and Plan: 81 years old female patient concerning exertional dyspnea and exertional chest tightness indicate the possibility of underlying obstructive coronary artery disease patient had a treadmill stress testshe has very poor exercise tolerance with EKG changes with exercise suggest coronary artery diseaseartery. Schedule for left and right heart cath right radial right antecubital for risk stratification I scheduled the patient for 2 weeks monitor to rule out any arrhythmias because her symptoms Follow up plannin WEEKS Electronically signed by Hai Hopson MD on October 24, 2021, 10:36 AM The above note was partially created using a dictation recognition software. A reasonable attempt has been made to correct any errors. * Kim Umana RN - 10/24/2021 10:25 AM EDT EVENT MONITOR DISPOSABLE PATCH INSTRUCTIONS Patient Name: Marci Marie [facility] Number: [id number] Skin prepped and cleansed with alcohol Patch secured to prepped area Monitor Activated Serial #: [id number] Patient Instructed: 1.) Prescribed order timeframe 2.) Bathing guidelines 3.) Usage of event button and diary documentation 4.) Return of monitor at the end of prescribed order 5.) Call with problems [phone] or [phone] ext. [phone] Patient expresses a good understanding of instructions Kim Umana RN documented in this encounterOur [facility]06-17-[facility]22 Nurse Note* Evangelina Branham RN - 09/16/2021 1:33 PM EDT REVIEW OF SYSTEMS: General: The patient denies fatigue, denies weight loss, denies weight gain, denies feeling hot, and denies feelings of cold. Eyes: The patient denies glaucoma, denies eye injury/surgery, wears glasses or contacts. Ear/Nose/Throat: The patient NOTES allergies, denies hayfever, denies ear infections, and denies bloody noses. Cardiovascular: The patient denies chest pain, denies heart disease, NOTES high blood pressure,denies cardiac stent, denies prior heart attack, denies irregular heart beat, denies high cholesterol, denies poor circulation, denies heart failure, other cardiac issues, denies claudication, denies coldfeet, denies peripheral arterial stent. Respiratory: The patient denies tuberculosis, NOTES pneumonia, denies frequent cough, denies pulmonary embolism, NOTES shortness of breath, and denies coughing up blood. Gastrointestinal: The patient denies difficulty swallowing, NOTES acid reflux, denies ulcers, denies vomiting, denies jaundice/hepatitis, denies gallbladder problems, denies black or tarry stools, denies hemorrhoids, denies bleeding from rectum, denies diverticulitis, denies constipation, denies diarrhea, denies loss of stool control, and denies hernias. Kidney/Bladder: The patient denies kidney stones, NOTES urine infections, and denies bloody urine. Skin: The patient NOTES a history of skin cancer, denies bleeding/changing moles, and denies a history of skin rash. Neurologic: The patient denies a history of epilepsy/convulsions, NOTES headaches, denies head/spinal injuries, and denies stroke/TIA. Psychiatric: The patient denies psychiatric medications, denies depression, and denies voices, denies substance abuse. Endocrine: The patient denies thyroid disorders, NOTES diabetes, and denies hormonal problems. Hematologic: The patient NOTES a history of bruising, denies bleeding, and denies anemia, denies blood clots. Infections: The patient NOTES a history of measles and mumps, denies rheumatic fever, and denies sexually transmitted diseases. Musculoskeletal: The patient denies back pain/injury, denies back problems, denies sciatica, deniesknee/foot trouble, NOTES arthritis, or denies gout. When was patient's last Mammogram screening? 2020 Last Colonoscopy: 2018 Evangelina Branham RN documented in this encounterOur [facility]06-09-2022 Miscellaneous Notes* Telephone Encounter - Sharona Bettencourt PA-C - 09/08/2021 11:29 AM EDT The following approved medication requests have been transmitted electronically. Signed Prescriptions Disp Refills pioglitazone (ACTOS) 30 mg tablet 90 tablet 1 Sig: Take 1 tablet by mouth once daily. Authorizing Provider: SHARONA BETTENCOURT PA-C * Telephone Encounter - Liz Awad Ma - 09/08/2021 10:21 AM EDT Spoke to patient who is willing to increase actos. Please send to [facility] in [place]. Patient will repeat blood work as directed and calling today to schedule with Dr. Monroy office. Liz Awad Ma * Telephone Encounter - Sharona Bettencourt PA-C - 09/08/2021 8:52 AM EDT Let patient know that a1c is still 7.8% which is the same as 6 months ago. Goal is under 7%. Would she be okay to increase actos to 30mg? Calcium is borderline high. Repeat in a couple weeks. Alk phos is high still. Needs to see gastro (can we make sure that consult from yesterday was faxedto Dr. Norris office). Urine shows some sugar from her diabetes. Cholesterol is normal. Thanks. Sharona Bettencourt PA-C documented in this encounterOur [facility] Of Mer[facility]06-08-2022 Instructions* Patient Instructions* Sharona Bettencourt PA-C - 09/07/2021 9:04 AM EDT Please schedule your eye exam. documented in this encounterOur Lady Of Mer[facility]06-08-2022 History of Present illness Narrative* Sharona Bettencourt PA-C - 09/07/2021 9:01 AM EDT Chief Complaint Patient presents with: 4 month follow up HPI Marci Marie is a 81 year old female who presents here today for Chronic Medical Conditions.. Patient with hx of HTN, HLP, DM2, GERD, aortic stenosis, SAMEER, depression, obesity, and those as below. Patient overall doing okay. No concerns today. Last 3 Encounter BP Readings: Date: BP: 09/07/2021 144/80 06/21/2021 142/84 05/10/2021 126/66[bp sunny average[ Past medical history, appointments, medications, allergies reviewed. Previous Medical History PAST MEDICAL HISTORY Diagnosis Date Adjustment disorder with depressed mood 01/19/2020 Aortic stenosis, mild 12/02/[address] 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) 07/01/2007 Corns and callus 09/18/2016 Current severe episode of major depressive disorder with psychotic features without prior episode ([facility]) 01/19/2020 Diabetic eye exam ([facility]) 08/21/2016 Last Done: 08/09/2017 No Retinopathy Diaphragmatic hernia without mention of obstruction or gangrene Elevated alkaline phosphatase level 08/28/2018 Elevated serum GGT level 07/03/2017 Essential hypertension 07/13/2014 SAMEER (generalized anxiety disorder) 09/05/2018 Gastroesophageal reflux disease with esophagitis 04/23/2015 Herpes zoster mild occasional neuralgia in left cervical area. Hiatal hernia History of colon polyps Mixed hyperlipidemia Morbid obesity with BMI of 40.0-44.9, adult ([facility]) 06/19/2016 Multiple thyroid nodules 03/24/2021 03/2021: Needs yearly f/u for 5 yrs Osteopenia 04/24/2011; Start vitamin d 1,000/day and RE-CHECK 2013 Personal history of other malignant neoplasm of skin 02/26/2009 Schatzki's ring Sebaceous cyst 07/03/2017 lower anterior neck Skin cancer, basal cell 04/23/2015 nose Stricture and stenosis of esophagus egd/dilatation by Dr. Hollins; Type 2 diabetes mellitus with proteinuria ([facility]) 07/07/2013 Uncontrolled type 2 diabetes mellitus with hyperglycemia ([facility]) 01/02/2020 Venous (peripheral) insufficiency 12/21/2015 Vitamin D deficiency 11/26/2015 Previous Surgical History PAST SURGICAL HISTORY Procedure Laterality Date 2D ECHO (EXEP) 12/02/2015 EF=59% mild LVH, mild MR,TR and 2D ECHO (EXEP) 02/13/2020 EF=65%, mild dilated LA, 1+ MR and CHOLECYSTECTOMY Cholecystectomy COLONOSCOPY 11/04/2018 Sessile serrated polyp, Tubullovillous adenoma. Dr. Filemon Galvan. COLONOSCOPY SCRN NOT HIGH RISK 06/10/03 upper and lower EGD 08/17/2009 Dr. Theo Hollins EGD DILATION 11/04/2018 Schatzi's Ring, mild reactive gastropathy. Dr. Filemon Galvan. ESOPHAGOGASTRODUODENOSCOPY TRANSORAL DIAGNOSTIC 06/2003 EGD EXERCISE ECG STRESS TEST 03/02/2020 negative NOSE SURGERY HX 2006 Nasal fracture repair TONSILLECTOMY AND ADENOIDECTOMY HX WRIST SURGERY HX 12/1988 Broken Left wrist surgery at [facility] - Dr. Delgado Family History FAMILY HISTORY Problem Relation Age of Onset Allergies Mother Heart Mother Asthma Mother Alzheimer's Disease Father Heart disease Father Hypertension Father Hypertension Maternal Grandmother DVT Maternal Grandmother Stroke Paternal Grandmother Stroke Paternal Grandfather Hypertension Brother Diabetes Brother Patient Allergies ALLERGIES Allergen Reactions Codeine Rash Penicillins Rash Prednisone Rash Celebrex [Celecoxib] Unknown Niacin Rash Sulfa (Sulfonamide * Rash Current Medications Current Outpatient Medications on File Prior to Visit Medication Sig amLODIPine (NORVASC) 2.5 mg tablet Take 1 tablet by mouth once daily. pimecrolimus (ELIDEL) 1 % cream Apply to affected area twice daily. lidocaine (LIDODERM) 5 % APPLY 1 PATCH TOPICALLY ONCE DAILY TO MOST PAINFUL AREA. LEAVE ON FOR 12 HOURS AND REMOVE FOR 12 HOURS. metFORMIN (GLUCOPHAGE) 500 mg tablet Take by mouth. take 2 tabs w/breakfast;1 tab with lunch and TWO tabs w/ dinner lisinopril (ZESTRIL, PRINIVIL) 40 mg tablet Take 1 tablet by mouth once daily. pioglitazone (ACTOS) 15 mg tablet Take 1 tablet by mouth once daily. hydroCHLOROthiazide (HYDRODIURIL, ESIDRIX) 25 mg tablet Take 1 tablet by mouth once daily. carvedilol (COREG) 3.125 mg tablet Take 1 tablet by mouth twice daily. glimepiride (AMARYL) 4 mg tablet Take 1 tablet by mouth twice daily with meals. blood sugar diagnostic (BLOOD GLUCOSE TEST) test strip Test blood sugar(s) 2 times daily. Dx: Type 2 DM - Uncontrolled E11.65 Insulin: No furosemide (LASIX) 80 mg tablet Take by mouth as needed. ibuprofen (MOTRIN) 200 mg tablet Take by mouth. Lancets lancets Test blood sugar(s) 2 times daily. Dx: Type 2 DM - Uncontrolled E11.65 Insulin: No nitroglycerin sublingual (NITROQUICK) 0.4 mg SL tablet Dissolve 1 tablet under the tongue as needed. FOR CHEST PAIN. IF NO RELIEF CALL 911 omega-3 fatty acids 1,000 mg cap Take 2 capsules by mouth once daily. Cholecalciferol, Vitamin D3, 2,000 unit cap Take 3 capsules by mouth once daily. Blood Pressure Cuff - Home Use BLOOD PRESSURE CUFF FOR HOME USE. DX: LABILE BLOOD PRESSURE ACETAMINOPHEN (TYLENOL ARTHRITIS ORAL) Take 1 tablet by mouth every 6 hours. No current facility-administered medications on file prior to visit. Social History Social History Tobacco Use Smoking status: Never Smoker Smokeless tobacco: Never Used Tobacco comment: 2nd hand Vaping Use Vaping Use: Never used Substance Use Topics Alcohol use: No Drug use: No Review of Symptoms REVIEW OF SYSTEMS GENERAL: No weight loss, malaise or fevers NECK: Negative for lumps, goiter, pain and significant neck swelling RESPIRATORY: patient reports shortness of breath. She also reports waking up with problems breathing in the middle of the night. CARDIOVASCULAR: Negative for chest pain, leg swelling, CHF or palpitations NEURO: No history of headaches, syncope, paralysis, seizures or tremors EXAM: BP 144/80 Pulse 96 Resp 20 Wt 111.6 kg (246 lb) LMP (LMP Unknown) BMI 40.49 kg/m BP 114/63 Pulse 96 Resp 20 Wt 111.6 kg (246 lb) LMP (LMP Unknown) BMI 40.49 kg/m General Appearance: Well appearing, alert, in no acute distress, well-hydrated, well nourished.. Neck: Supple, no adenopathy; thyroid symmetric, normal size, no bruits. Lungs: Lungs clear to auscultation. No wheezing, rhonchi, rales.. Heart: RRR without murmur, gallop, or rubs. No ectopy. Extremities: No deformities, edema, skin discoloration, clubbing or cyanosis. Good capillary refill. . Peripheral Pulses: Normal. Health Maintenance List BP CONTROLLED (<130/80) Never done SHINGRIX VACCINE(1 of 2) Never done DILATED RETINAL EXAM due on 08/09/2018 ADVANCE DIRECTIVE DISCUSSION Never done HBA1C due on 09/19/2021 COVID-19 VACCINE(4 - Booster for Pfizer series) due on 09/20/2021 LDL CHOLESTEROL due on 03/21/2022 DIABETIC FOOT EXAM due on 03/21/2022 ANNUAL PCP TEAM CHRONIC DISEASE VISIT due on 05/10/2022 DTAP,TDAP,TD(4 - Td or Tdap) due on 12/27/2025 BONE DENSITY Completed INFLUENZA Completed PNEUMOCOCCAL: 65+ Completed URINE ALBUMIN:CREATININE RATIO Discontinued DEPRESSION SCREENING Discontinued Data reviewed n/a ASSESSMENT/PLAN: 1. 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 Mixed hyperlipidemia - ICD9: 272.2, ICD10: E78.2 - to be determined upon return of lab results - Encouraged following a low carbohydrate, healthy oil intake diet. - Continue current therapy. - LIPID PANEL, NONFASTING 3. Essential hypertension - ICD9: 401.9, ICD10: I10 - good control - Continue current medication(s) - Recommended regular aerobic exercise. - Recommend home blood pressure monitoring, to bring results in on next visit - Goal of BP <130/80 - COMP METABOLIC PANEL - URINALYSIS, WITH MICROSCOPIC 4. Gastroesophageal reflux disease with esophagitis without hemorrhage - ICD9: 530.81, 530.10, ICD10: K21.00 - Set up with gastro. - CONSULT TO GASTROENTEROLOGY - CONSULT TO GASTROENTEROLOGY 5. Stricture and stenosis of esophagus - ICD9: 530.3, ICD10: K22.2 Set up with gastro - CONSULT TO GASTROENTEROLOGY - CONSULT TO GASTROENTEROLOGY 6. History of colonic polyps - ICD9: V12.72, ICD10: Z86.010 - CONSULT TO GASTROENTEROLOGY - CONSULT TO GASTROENTEROLOGY 7. Aortic stenosis, mild - ICD9: 424.1, ICD10: I35.0 Continue with cardio 8. Multiple thyroid nodules - ICD9: 241.1, ICD10: E04.2 9. Adjustment disorder with depressed mood - ICD9: 309.0, ICD10: F43.21 stable 10. Morbid obesity with BMI of 40.0-44.9, adult (HCC) - ICD9: 278.01, V85.41, ICD10: E66.01, Z68.41 Stable - Behavioral intervention 11. SOB (shortness of breath) - ICD9: 786.05, ICD10: R06.02 Check: - SPIROMETRY - BASELINE AND POST DILATOR 12. Hypersomnia - ICD9: 780.54, ICD10: G47.10 Will set up sleep study through [facility]. 13. Snoring - ICD9: 786.09, ICD10: R06.83 As above. F/u in 6 months. Sharona Bettencourt PA-C documented in this encounterOur [facility]06-01-2022 Miscellaneous Notes* Telephone Encounter - Nikki Patino RN - 08/31/2021 11:17 AM EDT Patient calls and sets up appointment with Sharona on 09/07/2021. Nikki Patino RN * Telephone Encounter - Olga Delvalle Pss - 08/24/2021 1:03 PM EDT 2 nd attempt unable to leave a message VM full. Patient needs med review first of August. Unable to reach letter sent. * Telephone Encounter - Olga Ballesteros - 08/19/2021 11:56 AM EDT 1st attempt unable to leave a message VM full. Patient needs med review first of August. * Telephone Encounter - Poonam Roman LPN - 08/19/2021 11:23 AM EDT Patient due for routine visit in August. Please assist pt in scheduling. Poonam Roman LPN * Telephone Encounter - Sharona Bettencourt PA-C - 08/19/2021 9:23 AM EDT Patient due for routine visit in August. * Telephone Encounter - Nikki Patino RN - 08/18/2021 1:14 PM EDT Patient has been identified by name and date of : Yes Patient phones for refill(s): Pending Prescriptions Disp Refills AMLODIPINE 2.5 MG TABLET 30 tablet 5 Sig: Take 1 tablet by mouth once daily. JOSIE: No Date of last office visit in primary care: 05/10/2021 Last 2 Encounter Wt Readings: Date: Wt: 06/21/2021 112.5 kg (248 lb) 05/10/2021 111.1 kg (245 lb) Previous labs/tests for medication: Blood Pressure: BUN (mg/dL) Date Value 03/21/2021 19 Sodium (mmol/L) Date Value 03/21/2021 139 Last 1 Encounter BP Readings: Date: BP: 06/21/2021 142/84 Liver Function: ALT (U/L) Date Value 03/21/2021 26 AST (U/L) Date Value 03/21/2021 21 Please advise. Thank you. Nikki Patino RN documented in this encounterOur Lady Of Mercy Hospital03-22-2022 Instructions* Patient Instructions* Nancy Stinson APRN.CNP - 06/21/2021 6:14 PM EDT elidel cream prescribed Zyrtec 10 mg By mouth daily at bedtime or benadryl 25 mg for itching If no improvement need to see dermatology documented in this encounterOur Lady Of Mercy Hospital03-22-2022 History of Present illness Narrative* Nancy Stinson APRN.CNP - 06/21/2021 5:57 PM EDT Images from the original note were not included. Subjective The history is provided by the patient. No bilingual speech language pathologist was used. HPI Marci Marie is a 81 year old female who presents today for CC of flare in eczema, on her face. This worsened a couple years ago with covid and mask wearing. She would treat with OTC hydrocortisone, but it has not improved. She had to have a stress test done 2 weeks ago and seemed to make it worse. BP 142/84 Pulse 94 Temp 36.7 C (98 F) Resp 18 Wt 112.5 kg (248 lb) LMP (LMP Unknown) SpO2 95% BMI 40.82 kg/m Social History Tobacco Use Smoking status: Never Smoker Smokeless tobacco: Never Used Tobacco comment: 2nd hand Vaping Use Vaping Use: Never used Substance Use Topics Alcohol use: No Drug use: No PAST MEDICAL HISTORY Diagnosis Date Adjustment disorder with depressed mood 01/19/2020 Aortic stenosis, mild 12/02/[address] Tesfaye: Echo 12/02/2015: Also showed mild TR and MR Bilateral leg edema 05/31/2015 Controlled type 2 diabetes with neuropathy ([facility]) 07/01/2007 Corns and callus 09/18/2016 Current severe episode of major depressive disorder with psychotic features without prior episode ([facility]) 01/19/2020 Diabetic eye exam ([facility]) 08/21/2016 Last Done: 08/09/2017 No Retinopathy Diaphragmatic hernia without mention of obstruction or gangrene Elevated alkaline phosphatase level 08/28/2018 Elevated serum GGT level 07/03/2017 Essential hypertension 07/13/2014 SAMEER (generalized anxiety disorder) 09/05/2018 Gastroesophageal reflux disease with esophagitis 04/23/2015 Herpes zoster mild occasional neuralgia in left cervical area. Hiatal hernia History of colon polyps Mixed hyperlipidemia Morbid obesity with BMI of 40.0-44.9, adult ([facility]) 06/19/2016 Multiple thyroid nodules 03/24/2021 US 03/2021: Needs yearly f/u for 5 yrs Osteopenia 04/24/2011; Start vitamin d 1,000/day and RE-CHECK 2013 Personal history of other malignant neoplasm of skin 02/26/2009 Schatzki's ring Sebaceous cyst 07/03/2017 lower anterior neck Skin cancer, basal cell 04/23/2015 nose Stricture and stenosis of esophagus egd/dilatation by Dr. Hollins; Type 2 diabetes mellitus with proteinuria ([facility]) 07/07/2013 Uncontrolled type 2 diabetes mellitus with hyperglycemia ([facility]) 01/02/2020 Venous (peripheral) insufficiency 12/21/2015 Vitamin D deficiency 11/26/2015 I have confirmed and edited as necessary, the [facility] Review of Systems Constitutional: Negative for chills and fever. Musculoskeletal: Negative for joint pain and myalgias. Skin: Positive for itching and rash. All other systems reviewed and are negative. Objective Physical Exam Vitals and nursing note reviewed. Cardiovascular: Rate and Rhythm: Normal rate and regular rhythm. Pulmonary: Effort: Pulmonary effort is normal. Breath sounds: Normal breath sounds. Skin: General: Skin is warm and dry. Neurological: Mental Status: She is alert and oriented to person, place, and time. Psychiatric: Mood and Affect: Affect normal. ASSESSMENT/PLAN: 1. Other eczema - ICD9: 692.9, ICD10: L30.8 - Anti itch therapy of Oral Benydryl recommended prn - discussed skin care of rash - follow up if symptoms persist or worsen. - Dry skin care instructions reviewed - Use mild soap like Dove, Aveeno or Cetaphil - limit shower/bath to less than 15 minutes with warm, not hot, water - BID use of recommended emollients such as Cetaphil, Eucerin Plus, Aveeno, Aquaphor - Follow up if symptoms persist or worsen. - Referral to Dermatology for further management. - elidel cream Diagnosis and treatment plan were discussed and questions were answered to the patient's satisfaction. Pt acknowledged understanding of concepts and follow up plan. Specific signs and symptoms that would indicate the need for higher level of care were discussed indetail warranting prompt ER evaluation. Nancy Stinson APRN.DIESEL MAINTENANCE TECHNICIAN documented in this encounterOur [facility]22 Miscellaneous Notes* Telephone Encounter - Scarlet Jackson Ma - 06/21/2021 8:30 AM EDT Pt notified, transferred to PSR to set up Cardio appt. Scarlet Jackson Ma * Telephone Encounter - Arturo Amaya MD - 06/20/2021 10:15 PM EDT Let patient know stress test was abnormal and want her to see cardiology as soon as possible. documented in this encounterOur [facility]03-03-2022 Miscellaneous Notes* Telephone Encounter - Elizabeth Wyatt Pss - 06/02/2021 10:18 AM EST Patient is scheduled for a ETT on 06/13 and needs to get a covid test on 06/06 Please put in a covid order so that I can schedule this Thank you documented in this encounterOur [facility]01-25-2022 History of Present illness Narrative* Denisha Prince RT(R) - 04/26/2021 5:50 PM EST Radiology Service Progress Note PATIENT NAME: Marci Marie DATE OF SERVICE: April 26, 2021 TIME: 5:58 PM PATIENT IDENTITY VERIFICATION COMPLETED USING TWO (2) IDENTIFIERS: Name and Date of confirmedby patient verbally. FALL SCREENING: Has the patient had 2 falls in the last year or 1 fall with injury or currently using an Ambulatory Assistive Device (Walker, Cane, Wheelchair, Crutches, etc.)? No PATIENT GENDER DATA: Female. status: : No status: NO. PATIENT RELEVANT IMPLANT DATA REVIEWED: Not Applicable RADIOLOGY DEPARTMENT: General X-ray: Exam(s) Completed: Rib X-Ray: Right PERIPHERAL IV DATA: Not applicable SIGNED BY: RT Sukhdeep(R) April 26, 2021 5:58 PM documented in this encounterOur [facility] Of [facility]01-25-2022 Miscellaneous Notes* Telephone Encounter - Arturo Amaya MD - 04/26/2021 12:10 PM EST Order placed * Telephone Encounter - Elizabeth Wyatt Pss - 04/26/2021 11:43 AM EST Patient is scheduled for a Exercise Tolerance Test on 05/09 and needs a covid test prior to this appointment. Please put in a covid test so that I can scheduled this prior to his ETT. Thanks documented in this encounterOur [facility]11-27-2009 History of Past illness Narrative* Problem Noted Date Resolved Date Actinic keratosis 02/26/2009 06/28/2009 Other seborrheic keratosis 02/26/200906/28 Sun-damaged skin 02/26/2009 06/28/2009 Solar lentigo 02/26/2009 06/28/2009 Scar condition and fibrosis of skin 02/26/2009 06/28/2009 Capillary angioma 02/26/2009 06/28/2009 Xerosis cutis 02/26/2009 06/28/2009 Venous stasis 02/26/2009 06/28/2009 documented as of this encounter (statuses as of 06/21/2021) [facility] of [facility] illness Narrative* Problem Noted Date Resolved Date Actinic keratosis 02/26/2009 06/28/2009 Other seborrheic keratosis 02/26/200906/28 Sun-damaged skin 02/26/2009 06/28/2009 Solar lentigo 02/26/2009 06/28/2009 Scar condition and fibrosis of skin 02/26/2009 06/28/2009 Capillary angioma 02/26/2009 06/28/2009 Xerosis cutis 02/26/2009 06/28/2009 Venous stasis 02/26/2009 06/28/2009 documented as of this encounter (statuses as of 06/21/2021) [facility] of [facility] illness Narrative* Problem Noted Date Resolved Date Actinic keratosis 02/26/2009 06/28/2009 Other seborrheic keratosis 02/26/200906/28 Sun-damaged skin 02/26/2009 06/28/2009 Solar lentigo 02/26/2009 06/28/2009 Scar condition and fibrosis of skin 02/26/2009 06/28/2009 Capillary angioma 02/26/2009 06/28/2009 Xerosis cutis 02/26/2009 06/28/2009 Venous stasis 02/26/2009 06/28/2009 documented as of this encounter (statuses as of 07/09/2021) [place] [id number] History of Past illness Narrative* Problem Noted Date Resolved Date Actinic keratosis 02/26/2009 06/28/2009 Other seborrheic keratosis 02/26/200906/28 Sun-damaged skin 02/26/2009 06/28/2009 Solar lentigo 02/26/2009 06/28/2009 Scar condition and fibrosis of skin 02/26/2009 06/28/2009 Capillary angioma 02/26/2009 06/28/2009 Xerosis cutis 02/26/2009 06/28/2009 Venous stasis 02/26/2009 06/28/2009 documented as of this encounter (statuses as of 07/09/2021) [place] [id number] History of Past illness Narrative* Problem Noted Date Resolved Date Actinic keratosis 02/26/2009 06/28/2009 Other seborrheic keratosis 02/26/200906/28 Sun-damaged skin 02/26/2009 06/28/2009 Solar lentigo 02/26/2009 06/28/2009 Scar condition and fibrosis of skin 02/26/2009 06/28/2009 Capillary angioma 02/26/2009 06/28/2009 Xerosis cutis 02/26/2009 06/28/2009 Venous stasis 02/26/2009 06/28/2009 documented as of this encounter (statuses as of 08/31/2021) [facility] Narrative* Problem Noted Date Resolved Date Actinic keratosis 02/26/2009 06/28/2009 Other seborrheic keratosis 02/26/200906/28 Sun-damaged skin 02/26/2009 06/28/2009 Solar lentigo 02/26/2009 06/28/2009 Scar condition and fibrosis of skin 02/26/2009 06/28/2009 Capillary angioma 02/26/2009 06/28/2009 Xerosis cutis 02/26/2009 06/28/2009 Venous stasis 02/26/2009 06/28/2009 documented as of this encounter (statuses as of 09/07/2021) [address]27-2009 History of Past illness Narrative* Problem Noted Date Resolved Date Actinic keratosis 02/26/2009 06/28/2009 Other seborrheic keratosis 02/26/200906/28 Sun-damaged skin 02/26/2009 06/28/2009 Solar lentigo 02/26/2009 06/28/2009 Scar condition and fibrosis of skin 02/26/2009 06/28/2009 Capillary angioma 02/26/2009 06/28/2009 Xerosis cutis 02/26/2009 06/28/2009 Venous stasis 02/26/2009 06/28/2009 documented as of this encounter (statuses as of 09/08/2021) [place] [id number] History of Past illness Narrative* Problem Noted Date Resolved Date Actinic keratosis 02/26/2009 06/28/2009 Other seborrheic keratosis 02/26/200906/28 Sun-damaged skin 02/26/2009 06/28/2009 Solar lentigo 02/26/2009 06/28/2009 Scar condition and fibrosis of skin 02/26/2009 06/28/2009 Capillary angioma 02/26/2009 06/28/2009 Xerosis cutis 02/26/2009 06/28/2009 Venous stasis 02/26/2009 06/28/2009 documented as of this encounter (statuses as of 10/04/2021) [address]27-2009 History of Past illness Narrative* Problem Noted Date Resolved Date Actinic keratosis 02/26/2009 06/28/2009 Other seborrheic keratosis 02/26/200906/28 Sun-damaged skin 02/26/2009 06/28/2009 Solar lentigo 02/26/2009 06/28/2009 Scar condition and fibrosis of skin 02/26/2009 06/28/2009 Capillary angioma 02/26/2009 06/28/2009 Xerosis cutis 02/26/2009 06/28/2009 Venous stasis 02/26/2009 06/28/2009 documented as of this encounter (statuses as of 10/24/2021) [address]27-2009 History of Past illness Narrative* Problem Noted Date Resolved Date Actinic keratosis 02/26/2009 06/28/2009 Other seborrheic keratosis 02/26/200906/28 Sun-damaged skin 02/26/2009 06/28/2009 Solar lentigo 02/26/2009 06/28/2009 Scar condition and fibrosis of skin 02/26/2009 06/28/2009 Capillary angioma 02/26/2009 06/28/2009 Xerosis cutis 02/26/2009 06/28/2009 Venous stasis 02/26/2009 06/28/2009 documented as of this encounter (statuses as of 10/24/2021) [address]27-2009 History of Past illness Narrative* Problem Noted Date Resolved Date Actinic keratosis 02/26/2009 06/28/2009 Other seborrheic keratosis 02/26/200906/28 Sun-damaged skin 02/26/2009 06/28/2009 Solar lentigo 02/26/2009 06/28/2009 Scar condition and fibrosis of skin 02/26/2009 06/28/2009 Capillary angioma 02/26/2009 06/28/2009 Xerosis cutis 02/26/2009 06/28/2009 Venous stasis 02/26/2009 06/28/2009 documented as of this encounter (statuses as of 10/27/2021) [facility] Narrative* Problem Noted Date Resolved Date Actinic keratosis 02/26/2009 06/28/2009 Other seborrheic keratosis 02/26/200906/28 Sun-damaged skin 02/26/2009 06/28/2009 Solar lentigo 02/26/2009 06/28/2009 Scar condition and fibrosis of skin 02/26/2009 06/28/2009 Capillary angioma 02/26/2009 06/28/2009 Xerosis cutis 02/26/2009 06/28/2009 Venous stasis 02/26/2009 06/28/2009 documented as of this encounter (statuses as of 10/28/2021) [facility] Narrative* Problem Noted Date Resolved Date Actinic keratosis 02/26/2009 06/28/2009 Other seborrheic keratosis 02/26/200906/28 Sun-damaged skin 02/26/2009 06/28/2009 Solar lentigo 02/26/2009 06/28/2009 Scar condition and fibrosis of skin 02/26/2009 06/28/2009 Capillary angioma 02/26/2009 06/28/2009 Xerosis cutis 02/26/2009 06/28/2009 Venous stasis 02/26/2009 06/28/2009 documented as of this encounter (statuses as of 11/18/2021) [place] [address]2009 History of Past illness Narrative* Problem Noted Date Resolved Date Actinic keratosis 02/26/2009 06/28/2009 Other seborrheic keratosis 02/26/200906/28 Sun-damaged skin 02/26/2009 06/28/2009 Solar lentigo 02/26/2009 06/28/2009 Scar condition and fibrosis of skin 02/26/2009 06/28/2009 Capillary angioma 02/26/2009 06/28/2009 Xerosis cutis 02/26/2009 06/28/2009 Venous stasis 02/26/2009 06/28/2009 documented as of this encounter (statuses as of 11/22/2021) [facility] Narrative* Problem Noted Date Resolved Date Actinic keratosis 02/26/2009 06/28/2009 Other seborrheic keratosis 02/26/200906/28 Sun-damaged skin 02/26/2009 06/28/2009 Solar lentigo 02/26/2009 06/28/2009 Scar condition and fibrosis of skin 02/26/2009 06/28/2009 Capillary angioma 02/26/2009 06/28/2009 Xerosis cutis 02/26/2009 06/28/2009 Venous stasis 02/26/2009 06/28/2009 documented as of this encounter (statuses as of 11/23/2021) [facility] Narrative* Problem Noted Date Resolved Date Actinic keratosis 02/26/2009 06/28/2009 Other seborrheic keratosis 02/26/200906/28 Sun-damaged skin 02/26/2009 06/28/2009 Solar lentigo 02/26/2009 06/28/2009 Scar condition and fibrosis of skin 02/26/2009 06/28/2009 Capillary angioma 02/26/2009 06/28/2009 Xerosis cutis 02/26/2009 06/28/2009 Venous stasis 02/26/2009 06/28/2009 documented as of this encounter (statuses as of 12/07/2021) [facility] Narrative* Problem Noted Date Resolved Date Actinic keratosis 02/26/2009 06/28/2009 Other seborrheic keratosis 02/26/200906/28 Sun-damaged skin 02/26/2009 06/28/2009 Solar lentigo 02/26/2009 06/28/2009 Scar condition and fibrosis of skin 02/26/2009 06/28/2009 Capillary angioma 02/26/2009 06/28/2009 Xerosis cutis 02/26/2009 06/28/2009 Venous stasis 02/26/2009 06/28/2009 documented as of this encounter (statuses as of 12/27/2021) [facility] Narrative* Problem Noted Date Resolved Date Actinic keratosis 02/26/2009 06/28/2009 Other seborrheic keratosis 02/26/200906/28 Sun-damaged skin 02/26/2009 06/28/2009 Solar lentigo 02/26/2009 06/28/2009 Scar condition and fibrosis of skin 02/26/2009 06/28/2009 Capillary angioma 02/26/2009 06/28/2009 Xerosis cutis 02/26/2009 06/28/2009 Venous stasis 02/26/2009 06/28/2009 documented as of this encounter (statuses as of 01/02/2022) [facility] Narrative* Problem Noted Date Resolved Date Actinic keratosis 02/26/2009 06/28/2009 Other seborrheic keratosis 02/26/200906/28 Sun-damaged skin 02/26/2009 06/28/2009 Solar lentigo 02/26/2009 06/28/2009 Scar condition and fibrosis of skin 02/26/2009 06/28/2009 Capillary angioma 02/26/2009 06/28/2009 Xerosis cutis 02/26/2009 06/28/2009 Venous stasis 02/26/2009 06/28/2009 documented as of this encounter (statuses as of 01/02/2022) [facility] Narrative* Problem Noted Date Resolved Date Actinic keratosis 02/26/2009 06/28/2009 Other seborrheic keratosis 02/26/200906/28 Sun-damaged skin 02/26/2009 06/28/2009 Solar lentigo 02/26/2009 06/28/2009 Scar condition and fibrosis of skin 02/26/2009 06/28/2009 Capillary angioma 02/26/2009 06/28/2009 Xerosis cutis 02/26/2009 06/28/2009 Venous stasis 02/26/2009 06/28/2009 documented as of this encounter (statuses as of 01/23/2022) [place] [address] History of Past illness Narrative* Problem Noted Date Resolved Date Actinic keratosis 02/26/2009 06/28/2009 Other seborrheic keratosis 02/26/200906/28 Sun-damaged skin 02/26/2009 06/28/2009 Solar lentigo 02/26/2009 06/28/2009 Scar condition and fibrosis of skin 02/26/2009 06/28/2009 Capillary angioma 02/26/2009 06/28/2009 Xerosis cutis 02/26/2009 06/28/2009 Venous stasis 02/26/2009 06/28/2009 documented as of this encounter (statuses as of 01/25/2022) [facility] Narrative* Problem Noted Date Resolved Date Actinic keratosis 02/26/2009 06/28/2009 Other seborrheic keratosis 02/26/200906/28 Sun-damaged skin 02/26/2009 06/28/2009 Solar lentigo 02/26/2009 06/28/2009 Scar condition and fibrosis of skin 02/26/2009 06/28/2009 Capillary angioma 02/26/2009 06/28/2009 Xerosis cutis 02/26/2009 06/28/2009 Venous stasis 02/26/2009 06/28/2009 documented as of this encounter (statuses as of 03/07/2022) [facility] Narrative* Problem Noted Date Resolved Date Actinic keratosis 02/26/2009 06/28/2009 Other seborrheic keratosis 02/26/200906/28 Sun-damaged skin 02/26/2009 06/28/2009 Solar lentigo 02/26/2009 06/28/2009 Scar condition and fibrosis of skin 02/26/2009 06/28/2009 Capillary angioma 02/26/2009 06/28/2009 Xerosis cutis 02/26/2009 06/28/2009 Venous stasis 02/26/2009 06/28/2009 documented as of this encounter (statuses as of 03/08/2022) [facility] Narrative* Problem Noted Date Resolved Date Actinic keratosis 02/26/2009 06/28/2009 Other seborrheic keratosis 02/26/200906/28 Sun-damaged skin 02/26/2009 06/28/2009 Solar lentigo 02/26/2009 06/28/2009 Scar condition and fibrosis of skin 02/26/2009 06/28/2009 Capillary angioma 02/26/2009 06/28/2009 Xerosis cutis 02/26/2009 06/28/2009 Venous stasis 02/26/2009 06/28/2009 documented as of this encounter (statuses as of 03/13/2022) [facility] Narrative* Problem Noted Date Resolved Date Actinic keratosis 02/26/2009 06/28/2009 Other seborrheic keratosis 02/26/200906/28 Sun-damaged skin 02/26/2009 06/28/2009 Solar lentigo 02/26/2009 06/28/2009 Scar condition and fibrosis of skin 02/26/2009 06/28/2009 Capillary angioma 02/26/2009 06/28/2009 Xerosis cutis 02/26/2009 06/28/2009 Venous stasis 02/26/2009 06/28/2009 documented as of this encounter (statuses as of 03/18/2022) [facility] Narrative* Problem Noted Date Resolved Date Actinic keratosis 02/26/2009 06/28/2009 Other seborrheic keratosis 02/26/200906/28 Sun-damaged skin 02/26/2009 06/28/2009 Solar lentigo 02/26/2009 06/28/2009 Scar condition and fibrosis of skin 02/26/2009 06/28/2009 Capillary angioma 02/26/2009 06/28/2009 Xerosis cutis 02/26/2009 06/28/2009 Venous stasis 02/26/2009 06/28/2009 documented as of this encounter (statuses as of 04/04/2022) [facility] Narrative* Problem Noted Date Resolved Date Actinic keratosis 02/26/2009 06/28/2009 Other seborrheic keratosis 02/26/200906/28 Sun-damaged skin 02/26/2009 06/28/2009 Solar lentigo 02/26/2009 06/28/2009 Scar condition and fibrosis of skin 02/26/2009 06/28/2009 Capillary angioma 02/26/2009 06/28/2009 Xerosis cutis 02/26/2009 06/28/2009 Venous stasis 02/26/2009 06/28/2009 documented as of this encounter (statuses as of 04/06/2022) [place] [address] History of Past illness Narrative* Problem Noted Date Resolved Date Actinic keratosis 02/26/2009 06/28/2009 Other seborrheic keratosis 02/26/200906/28 Sun-damaged skin 02/26/2009 06/28/2009 Solar lentigo 02/26/2009 06/28/2009 Scar condition and fibrosis of skin 02/26/2009 06/28/2009 Capillary angioma 02/26/2009 06/28/2009 Xerosis cutis 02/26/2009 06/28/2009 Venous stasis 02/26/2009 06/28/2009 documented as of this encounter (statuses as of 04/11/2022) [address]27-2009 History of Past illness Narrative* Problem Noted Date Resolved Date Actinic keratosis 02/26/2009 06/28/2009 Other seborrheic keratosis 02/26/200906/28 Sun-damaged skin 02/26/2009 06/28/2009 Solar lentigo 02/26/2009 06/28/2009 Scar condition and fibrosis of skin 02/26/2009 06/28/2009 Capillary angioma 02/26/2009 06/28/2009 Xerosis cutis 02/26/2009 06/28/2009 Venous stasis 02/26/2009 06/28/2009 documented as of this encounter (statuses as of 04/13/2022) [address]27-2009 History of Past illness Narrative* Problem Noted Date Resolved Date Actinic keratosis 02/26/2009 06/28/2009 Other seborrheic keratosis 02/26/200906/28 Sun-damaged skin 02/26/2009 06/28/2009 Solar lentigo 02/26/2009 06/28/2009 Scar condition and fibrosis of skin 02/26/2009 06/28/2009 Capillary angioma 02/26/2009 06/28/2009 Xerosis cutis 02/26/2009 06/28/2009 Venous stasis 02/26/2009 06/28/2009 documented as of this encounter (statuses as of 05/12/2022) [address]27-2009 History of Past illness Narrative* Problem Noted Date Resolved Date Actinic keratosis 02/26/2009 06/28/2009 Other seborrheic keratosis 02/26/200906/28 Sun-damaged skin 02/26/2009 06/28/2009 Solar lentigo 02/26/2009 06/28/2009 Scar condition and fibrosis of skin 02/26/2009 06/28/2009 Capillary angioma 02/26/2009 06/28/2009 Xerosis cutis 02/26/2009 06/28/2009 Venous stasis 02/26/2009 06/28/2009 documented as of this encounter (statuses as of 06/06/2022) [address]27-2009 History of Past illness Narrative* Problem Noted Date Resolved Date Actinic keratosis 02/26/2009 06/28/2009 Other seborrheic keratosis 02/26/200906/28 Sun-damaged skin 02/26/2009 06/28/2009 Solar lentigo 02/26/2009 06/28/2009 Scar condition and fibrosis of skin 02/26/2009 06/28/2009 Capillary angioma 02/26/2009 06/28/2009 Xerosis cutis 02/26/2009 06/28/2009 Venous stasis 02/26/2009 06/28/2009 documented as of this encounter (statuses as of 06/06/2022) [address]27-2009 History of Past illness Narrative* Problem Noted Date Resolved Date Actinic keratosis 02/26/2009 06/28/2009 Other seborrheic keratosis 02/26/200906/28 Sun-damaged skin 02/26/2009 06/28/2009 Solar lentigo 02/26/2009 06/28/2009 Scar condition and fibrosis of skin 02/26/2009 06/28/2009 Capillary angioma 02/26/2009 06/28/2009 Xerosis cutis 02/26/2009 06/28/2009 Venous stasis 02/26/2009 06/28/2009 documented as of this encounter (statuses as of 07/11/2022) [place] [address]27[address]2009 History of Past illness Narrative* Problem Noted Date Resolved Date Actinic keratosis 02/26/2009 06/28/2009 Other seborrheic keratosis 02/26/200906/28 Sun-damaged skin 02/26/2009 06/28/2009 Solar lentigo 02/26/2009 06/28/2009 Scar condition and fibrosis of skin 02/26/2009 06/28/2009 Capillary angioma 02/26/2009 06/28/2009 Xerosis cutis 02/26/2009 06/28/2009 Venous stasis 02/26/2009 06/28/2009 documented as of this encounter (statuses as of 09/20/2022) [place] [address]27[address]2009 History of Past illness Narrative* Problem Noted Date Resolved Date Actinic keratosis 02/26/2009 06/28/2009 Other seborrheic keratosis 02/26/200906/28 Sun-damaged skin 02/26/2009 06/28/2009 Solar lentigo 02/26/2009 06/28/2009 Scar condition and fibrosis of skin 02/26/2009 06/28/2009 Capillary angioma 02/26/2009 06/28/2009 Xerosis cutis 02/26/2009 06/28/2009 Venous stasis 02/26/2009 06/28/2009 documented as of this encounter (statuses as of 09/21/2022) [facility] History of Past illness Narrative* Problem Noted Date Resolved Date Actinic keratosis 02/26/2009 06/28/2009 Other seborrheic keratosis 02/26/200906/28 Sun-damaged skin 02/26/2009 06/28/2009 Solar lentigo 02/26/2009 06/28/2009 Scar condition and fibrosis of skin 02/26/2009 06/28/2009 Capillary angioma 02/26/2009 06/28/2009 Xerosis cutis 02/26/2009 06/28/2009 Venous stasis 02/26/2009 06/28/2009 documented as of this encounter (statuses as of 09/25/2022) [address]27-2009 History of Past illness Narrative* Problem Noted Date Resolved Date Actinic keratosis 02/26/2009 06/28/2009 Other seborrheic keratosis 02/26/200906/28 Sun-damaged skin 02/26/2009 06/28/2009 Solar lentigo 02/26/2009 06/28/2009 Scar condition and fibrosis of skin 02/26/2009 06/28/2009 Capillary angioma 02/26/2009 06/28/2009 Xerosis cutis 02/26/2009 06/28/2009 Venous stasis 02/26/2009 06/28/2009 documented as of this encounter (statuses as of 09/26/2022) [facility] History of Past illness Narrative* Problem Noted Date Resolved Date Actinic keratosis 02/26/2009 06/28/2009 Other seborrheic keratosis 02/26/200906/28 Sun-damaged skin 02/26/2009 06/28/2009 Solar lentigo 02/26/2009 06/28/2009 Scar condition and fibrosis of skin 02/26/2009 06/28/2009 Capillary angioma 02/26/2009 06/28/2009 Xerosis cutis 02/26/2009 06/28/2009 Venous stasis 02/26/2009 06/28/2009 documented as of this encounter (statuses as of 09/27/2022) [place] [address]2009 History of Past illness Narrative* Problem Noted Date Diagnosed Date Resolved Date Actinic keratosis 02/26/2009 06/28/2009 Other seborrheic keratosis 02/26/2009 0 06/28/2009 Sun-damaged skin 02/26/2009 06/28/2009 Solar lentigo 02/26/2009 06/28/2009 Scar condition and fibrosis of skin 02/26/2009 06/28/2009 Capillary angioma 02/26/2009 06/28/2009 Xerosis cutis 02/26/2009 06/28/2009 Venous stasis 02/26/2009 06/28/2009 documented as of this encounter (statuses as of 10/18/2022) [facility] History of Past illness Narrative* Problem Noted Date Diagnosed Date Resolved Date Actinic keratosis 02/26/2009 06/28/2009 Other seborrheic keratosis 02/26/2009 0 06/28/2009 Sun-damaged skin 02/26/2009 06/28/2009 Solar lentigo 02/26/2009 06/28/2009 Scar condition and fibrosis of skin 02/26/2009 06/28/2009 Capillary angioma 02/26/2009 06/28/2009 Xerosis cutis 02/26/2009 06/28/2009 Venous stasis 02/26/2009 06/28/2009 documented as of this encounter (statuses as of 11/16/2022) [address]27-2009 History of Past illness Narrative* Problem Noted Date Diagnosed Date Resolved Date Actinic keratosis 02/26/2009 06/28/2009 Other seborrheic keratosis 02/26/2009 0 06/28/2009 Sun-damaged skin 02/26/2009 06/28/2009 Solar lentigo 02/26/2009 06/28/2009 Scar condition and fibrosis of skin 02/26/2009 06/28/2009 Capillary angioma 02/26/2009 06/28/2009 Xerosis cutis 02/26/2009 06/28/2009 Venous stasis 02/26/2009 06/28/2009 documented as of this encounter (statuses as of 12/06/2022) [address]27-2009 History of Past illness Narrative* Problem Noted Date Diagnosed Date Resolved Date Actinic keratosis 02/26/2009 06/28/2009 Other seborrheic keratosis 02/26/2009 0 06/28/2009 Sun-damaged skin 02/26/2009 06/28/2009 Solar lentigo 02/26/2009 06/28/2009 Scar condition and fibrosis of skin 02/26/2009 06/28/2009 Capillary angioma 02/26/2009 06/28/2009 Xerosis cutis 02/26/2009 06/28/2009 Venous stasis 02/26/2009 06/28/2009 documented as of this encounter (statuses as of 12/09/2022) [place] [id number] History of Past illness Narrative* Problem Noted Date Diagnosed Date Resolved Date Actinic keratosis 02/26/2009 06/28/2009 Other seborrheic keratosis 02/26/2009 0 06/28/2009 Sun-damaged skin 02/26/2009 06/28/2009 Solar lentigo 02/26/2009 06/28/2009 Scar condition and fibrosis of skin 02/26/2009 06/28/2009 Capillary angioma 02/26/2009 06/28/2009 Xerosis cutis 02/26/2009 06/28/2009 Venous stasis 02/26/2009 06/28/2009 documented as of this encounter (statuses as of 12/11/2022) [address]27-2009 History of Past illness Narrative* Problem Noted Date Diagnosed Date Resolved Date Actinic keratosis 02/26/2009 06/28/2009 Other seborrheic keratosis 02/26/2009 0 06/28/2009 Sun-damaged skin 02/26/2009 06/28/2009 Solar lentigo 02/26/2009 06/28/2009 Scar condition and fibrosis of skin 02/26/2009 06/28/2009 Capillary angioma 02/26/2009 06/28/2009 Xerosis cutis 02/26/2009 06/28/2009 Venous stasis 02/26/2009 06/28/2009 documented as of this encounter (statuses as of 02/13/2023) [facility]11-27-2009 History of Past illness Narrative* Problem Noted Date Diagnosed Date Resolved Date Actinic keratosis 02/26/2009 06/28/2009 Other seborrheic keratosis 02/26/2009 0 06/28/2009 Sun-damaged skin 02/26/2009 06/28/2009 Solar lentigo 02/26/2009 06/28/2009 Scar condition and fibrosis of skin 02/26/2009 06/28/2009 Capillary angioma 02/26/2009 06/28/2009 Xerosis cutis 02/26/2009 06/28/2009 Venous stasis 02/26/2009 06/28/2009 documented as of this encounter (statuses as of 03/01/2023) [address]27-2009 History of Past illness Narrative* Problem Noted Date Diagnosed Date Resolved Date Actinic keratosis 02/26/2009 06/28/2009 Other seborrheic keratosis 02/26/2009 0 06/28/2009 Sun-damaged skin 02/26/2009 06/28/2009 Solar lentigo 02/26/2009 06/28/2009 Scar condition and fibrosis of skin 02/26/2009 06/28/2009 Capillary angioma 02/26/2009 06/28/2009 Xerosis cutis 02/26/2009 06/28/2009 Venous stasis 02/26/2009 06/28/2009 documented as of this encounter (statuses as of 03/05/2023) [address]27-2009 History of Past illness Narrative* Problem Noted Date Diagnosed Date Resolved Date Actinic keratosis 02/26/2009 06/28/2009 Other seborrheic keratosis 02/26/2009 0 06/28/2009 Sun-damaged skin 02/26/2009 06/28/2009 Solar lentigo 02/26/2009 06/28/2009 Scar condition and fibrosis of skin 02/26/2009 06/28/2009 Capillary angioma 02/26/2009 06/28/2009 Xerosis cutis 02/26/2009 06/28/2009 Venous stasis 02/26/2009 06/28/2009 documented as of this encounter (statuses as of 07/09/2023) [facility]11-27-2009 History of Past illness Narrative* Problem Noted Date Diagnosed Date Resolved Date Actinic keratosis 02/26/2009 06/28/2009 Other seborrheic keratosis 02/26/2009 0 06/28/2009 Sun-damaged skin 02/26/2009 06/28/2009 Solar lentigo 02/26/2009 06/28/2009 Scar condition and fibrosis of skin 02/26/2009 06/28/2009 Capillary angioma 02/26/2009 06/28/2009 Xerosis cutis 02/26/2009 06/28/2009 Venous stasis 02/26/2009 06/28/2009 documented as of this encounter (statuses as of 07/13/2023) [facility] Diagnosis Chest pain, unspecified type- Primary Abnormal stress ECG with treadmill Other nonspecific abnormal cardiovascular system function study [facility] Diagnosis Other eczema- Primary [facility]* Diagnosis Encounter for preprocedure screening laboratory testing for COVID-19- Primary [facility]* Diagnosis 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 Type II or unspecified type diabetes mellitus with neurological manifestations, not stated as uncontrolled Mixed hyperlipidemia Essential hypertension Unspecified essential hypertension Gastroesophageal reflux disease with esophagitis without hemorrhage Stricture and stenosis of esophagus History of colonic polyps Personal history of colonic polyps Aortic stenosis, mild Aortic valve disorders Multiple thyroid nodules Nontoxic multinodular goiter Adjustment disorder with depressed mood Morbid obesity with BMI of 40.0-44.9, adult (HCC) Morbid obesity SOB (shortness of breath) Shortness of breath Hypersomnia Hypersomnia, unspecified Snoring Other dyspnea and respiratory abnormality [facility] Diagnosis Hypercalcemia- Primary [facility]* Diagnosis APPOINTMENT CANCELLED- Primary [facility]* Diagnosis Chest pain, unspecified type Abnormal stress ECG with treadmill Other nonspecific abnormal cardiovascular system function study Dyspnea on exertion Other dyspnea and respiratory abnormality [facility] this [facility]* Diagnosis Burning with urination- Primary Dysuria Tinnitus, bilateral Unspecified tinnitus documented [facility] this [facility]* Diagnosis Headache, new daily persistent (NDPH)- Primary New daily persistent headache Tinnitus of both ears Unspecified tinnitus Hypoglycemia Hypoglycemia, unspecified documented [facility] this encounter [facility]* Diagnosis Hypercalcemia- Primary [facility] this [facility]* Diagnosis Headache, new daily persistent (NDPH) New daily persistent headache Tinnitus of both ears Unspecified tinnitus Hypoglycemia Hypoglycemia, unspecified [facility]* Diagnosis Anterolisthesis of cervical spine- Primary [facility] this [facility]* Diagnosis Primary hypertension [I10 (ICD-10-CM)]- Primary Unspecified essential hypertension [facility]* Diagnosis SOB (shortness of breath)- Primary Shortness of breath Pulmonary hypertension (HCC) Other chronic pulmonary heart diseases documented [facility] this encounter [facility]* Diagnosis Essential hypertension- Primary Unspecified essential hypertension [facility]* Diagnosis Cellulitis of skin- Primary Cellulitis and abscess of unspecified site Essential hypertension Unspecified essential hypertension 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) Multiple thyroid nodules Nontoxic multinodular goiter Mixed hyperlipidemia Uncontrolled type 2 diabetes mellitus with hyperglycemia (HCC) Vitamin D deficiency Unspecified vitamin D deficiency Medication management Encounter for long-term (current) use of other medications [facility] this [facility]* Diagnosis Cellulitis of skin- Primary Cellulitis and abscess of unspecified site documented [facility] this encounter [facility]* Diagnosis Cellulitis of skin- Primary Cellulitis and abscess of unspecified site documented [facility] this encounter [facility]* Diagnosis Medicare annual wellness visit, subsequent- Primary Routine general medical examination at a health care facility Primary hypertension Unspecified essential hypertension Morbid obesity with BMI of 40.0-44.9, adult (HCC) Morbid obesity Uncontrolled type 2 diabetes mellitus with hyperglycemia (HCC) 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) Type II or unspecified type diabetes mellitus with neurological manifestations, not stated as uncontrolled Encounter for immunization Need for other specified prophylactic vaccination against single bacterial disease [facility] Diagnosis Carpal tunnel syndrome, bilateral Carpal tunnel syndrome [facility] noteNo assessment information availableWAshtab[facility] Work Phone: Evaluation note* Diagnosis Carpal tunnel syndrome on right- Primary Carpal tunnel syndrome [facility]* Diagnosis Vaginal yeast infection- Primary Candidiasis of vulva and vagina Left leg cellulitis Cellulitis and abscess of leg, except foot Intertrigo Other specified erythematous condition [facility] this [facility]* Diagnosis Acute constipation- Primary Unspecified constipation [facility]* Diagnosis Carpal tunnel syndrome on right- Primary Carpal tunnel syndrome [facility]* Diagnosis Cellulitis of skin- Primary Cellulitis and abscess of unspecified site Wound of left lower extremity, subsequent encounter OAB (overactive bladder) Hypertonicity of bladder [facility]* Diagnosis Onset Date Resolution Status Aortic stenosis acute Atrial fibrillation acute Diabetic neuropathy acute Diaphragmatic hernia acute Edema of left lower extremity acute Edema of left lower extremit y due to peripheral venous insufficiency acute Edema of right lower extremity acute Edema of right lower extremi ty due to peripheral venous insufficiency acute Esophageal stricture acute Hearing deficit acute History of basal cell cancer acute History of cholecystectomy a cute History of esophageal dilatation acute History of nasal surgery acu te History of surgery on left wrist acute History of tonsillectomy acu te Hyperlipidemia acute Obesity (BMI 35.0-39.9 without comorbidity) acute Overactive bladder acute Swelling of left lower extremity acute Swelling of right lower extremity acute Tinnitus acute Venous stasis dermatitis acu te Chronic venous insufficiency chronic Diabetes mellitus chronic GERD (gastroesophageal reflux disease) chronic Hiatal hernia chronic HTN (hypertension) [facility] Work Phone: Evaluation note* Diagnosis Onset Date Resolution Status Aortic stenosis acute Atrial fibrillation acute Diabetic neuropathy acute Diaphragmatic hernia acute Edema of left lower extremity acute Edema of left lower extremit y due to peripheral venous insufficiency acute Edema of right lower extremity acute Edema of right lower extremi ty due to peripheral venous insufficiency acute Esophageal stricture acute Hearing deficit acute History of basal cell cancer acute History of cholecystectomy a cute History of esophageal dilatation acute History of nasal surgery acu te History of surgery on left wrist acute History of tonsillectomy acu te Hyperlipidemia acute Obesity (BMI 35.0-39.9 without comorbidity) acute Overactive bladder acute Swelling of left lower extremity acute Swelling of right lower extremity acute Tinnitus acute Venous stasis dermatitis acu te Chronic venous insufficiency chronic Diabetes mellitus chronic GERD (gastroesophageal reflux disease) chronic Hiatal hernia chronic HTN (hypertension) chronic Aortic stenosis acute Atrial fibrillation acute Diabetic neuropathy acute Diaphragmatic hernia acute Edema of left lower extremity acute Edema of left lower extremit y due to peripheral venous insufficiency acute Edema of right lower extremity acute Edema of right lower extremi ty due to peripheral venous insufficiency acute Esophageal stricture acute Hearing deficit acute History of basal cell cancer acute History of cholecystectomy a cute History of esophageal dilatation acute History of nasal surgery acu te History of surgery on left wrist acute History of tonsillectomy acu te Hyperlipidemia acute Obesity (BMI 35.0-39.9 without comorbidity) acute Overactive bladder acute Swelling of left lower extremity acute Swelling of right lower extremity acute Tinnitus acute Venous stasis dermatitis acu te Chronic venous insufficiency chronic Diabetes mellitus chronic GERD (gastroesophageal reflux disease) chronic Hiatal hernia chronic HTN (hypertension) [facility] Work Phone: Evaluation note* Diagnosis Cellulitis and abscess of right leg- Primary [facility]* Diagnosis Wound of right lower extremity, initial encounter- Primary Essential hypertension Unspecified essential hypertension Uncontrolled type 2 diabetes mellitus with hyperglycemia (HCC) [facility]* Diagnosis Cellulitis of skin- Primary Cellulitis and abscess of unspecified site Non-compliance Personal history of noncompliance with medical treatment, presenting hazards to health Essential hypertension Unspecified essential hypertension Uncontrolled type 2 diabetes mellitus with hyperglycemia (HCC) [facility]* Diagnosis Cellulitis of skin- Primary Cellulitis and abscess of unspecified site Essential hypertension Unspecified essential hypertension [facility]* Diagnosis Skin infection- Primary Unspecified local infection of skin and subcutaneous tissue [facility] Diagnosis Acute constipation Unspecified constipation [facility]* Diagnosis Pain, dental- Primary Unspecified disorder of the teeth and supporting structures [facility]* Diagnosis Neck pain Cervicalgia [facility] Diagnosis Fall (on) (from) other stairs and steps, initial encounter Rib pain on right side Chest pain, unspecified [facility] Diagnosis Medicare annual wellness visit, subsequent- Primary Routine general medical examination at a health care facility Mixed hyperlipidemia 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) Type II or unspecified type diabetes mellitus with neurological manifestations, not stated as uncontrolled 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) Essential hypertension Unspecified essential hypertension Gastroesophageal reflux disease with esophagitis without hemorrhage SAMEER (generalized anxiety disorder) Generalized anxiety disorder Multiple thyroid nodules Nontoxic multinodular goiter Vitamin D deficiency Unspecified vitamin D deficiency Medication management Encounter for long-term (current) use of other medications [facility]* Diagnosis Urgency incontinence- Primary Urge incontinence Vaginal candidiasis Candidiasis of vulva and vagina Urethral irritation Unspecified disorder of urethra and urinary tract [facility] Diagnosis Medicare annual wellness visit, subsequent- Primary Routine general medical examination at a health care facility Advanced care planning/counseling discussion Other specified counseling Uncontrolled type 2 diabetes mellitus with hyperglycemia (HCC) 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) Type II or unspecified type diabetes mellitus with neurological manifestations, not stated as uncontrolled Mixed hyperlipidemia Essential hypertension Unspecified essential hypertension Screening for depression Multiple thyroid nodules Nontoxic multinodular goiter Gastroesophageal reflux disease with esophagitis without hemorrhage OAB (overactive bladder) 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) SAMEER (generalized anxiety disorder) Generalized anxiety disorder Adjustment disorder with depressed mood Medication management Encounter for long-term (current) use of other medications Screening for colon cancer Special screening for malignant neoplasms, colon History of colonic polyps Personal history of colonic polyps Dysphagia, unspecified type Asymptomatic postmenopausal status Urge incontinence [facility] this [facility]* Diagnosis Uncontrolled type 2 diabetes mellitus with hyperglycemia (HCC)- Primary Elevated alkaline phosphatase level Other nonspecific abnormal serum enzyme levels Elevated LFTs Other abnormal blood chemistry Hypercalcemia documented in this encounter [facility]* Diagnosis Elevated alkaline phosphatase level Other nonspecific abnormal serum enzyme levels Elevated LFTs Other abnormal blood chemistry [facility] Diagnosis Hypertension, essential- Primary Unspecified essential hypertension [facility] this [facility]* Diagnosis Hypertension, essential- Primary Unspecified essential hypertension Uncontrolled type 2 diabetes mellitus with hyperglycemia (HCC) Ingrown toenail Ingrowing nail [facility] Diagnosis Elevated alkaline phosphatase level- Primary Other nonspecific abnormal serum enzyme levels Metabolic dysfunction-associated steatotic liver disease (MASLD) [facility]* Diagnosis Asymptomatic postmenopausal status [facility] Diagnosis Multiple thyroid nodules Nontoxic multinodular goiter [facility] Diagnosis Multiple thyroid nodules- Primary Nontoxic multinodular goiter [facility]* Diagnosis Age-related osteoporosis without current pathological fracture- Primary Senile osteoporosis [facility]* Diagnosis Onychomycosis- Primary Dermatophytosis of nail Uncontrolled type 2 diabetes mellitus with hyperglycemia (HCC) Ingrown toenail Ingrowing nail Onychocryptosis Ingrowing nail Callus Corns and callosities Diabetic polyneuropathy associated with type 2 diabetes mellitus (HCC) Hammer toes of both feet Diminished pulses in lower extremity Other symptoms involving cardiovascular system Poorly controlled type 2 diabetes mellitus (HCC)- Primary Type II or unspecified type diabetes mellitus without mention of complication, not stated as uncontrolled [facility] Diagnosis Poorly controlled type 2 diabetes mellitus (HCC)- Primary Type II or unspecified type diabetes mellitus without mention of complication, not stated as uncontrolled Uncontrolled type 2 diabetes mellitus with hyperglycemia (HCC) [facility]* Diagnosis 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 Type II or unspecified type diabetes mellitus with neurological manifestations, not stated as uncontrolled [facility] Diagnosis Elevated alkaline phosphatase level Other nonspecific abnormal serum enzyme levels [facility] Diagnosis Vaginal yeast infection Candidiasis of vulva and vagina [facility]* Diagnosis Onychomycosis- Primary Dermatophytosis of nail Onychocryptosis Ingrowing nail Pain in toe of left foot Pain in limb Pain in toe of right foot Pain in limb Diabetic polyneuropathy associated with type 2 diabetes mellitus (HCC) Ingrown toenail Ingrowing nail [facility]* Diagnosis Type 2 diabetes mellitus with peripheral neuropathy (HCC)- Primary Uncontrolled type 2 diabetes mellitus with hyperglycemia (HCC) 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) Essential hypertension Unspecified essential hypertension Mixed hyperlipidemia Vitamin D deficiency Unspecified vitamin D deficiency Tinnitus of both ears Unspecified tinnitus Adjustment disorder with depressed mood Encounter for immunization Need for other specified prophylactic vaccination against single bacterial disease Age-related osteoporosis without current pathological fracture Senile osteoporosis Multiple thyroid nodules Nontoxic multinodular goiter OAB (overactive bladder) Hypertonicity of bladder Gastroesophageal reflux disease with esophagitis without hemorrhage Aortic stenosis, mild Aortic valve disorders SAMEER (generalized anxiety disorder) Generalized anxiety disorder Diastolic congestive heart failure, unspecified HF chronicity (HCC) Auditory hallucination Hallucinations Major depressive disorder, recurrent, moderate (HCC) Major depressive disorder, recurrent episode, moderate Insomnia due to mental disorder Bilateral hearing loss, unspecified hearing loss type [facility] Diagnosis Hyperkalemia- Primary Hyperpotassemia documented [facility]* Diagnosis Major depressive disorder, recurrent, moderate (HCC)- Primary Major depressive disorder, recurrent episode, moderate SAMEER (generalized anxiety disorder) Generalized anxiety disorder [facility] Diagnosis Major depressive disorder, recurrent, moderate (HCC)- Primary Major depressive disorder, recurrent episode, moderate Essential hypertension Unspecified essential hypertension SAMEER (generalized anxiety disorder) Generalized anxiety disorder 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) Type II or unspecified type diabetes mellitus with neurological manifestations, not stated as uncontrolled Diastolic congestive heart failure, unspecified HF chronicity (HCC) Uncontrolled type 2 diabetes mellitus with hyperglycemia (HCC) 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 November 07, 2022 1:49pm Note Date/Time November 07, 2022 1:4 9pm [facility] [address] [place] [id number] H&P Exam - Wound Care 11/07/22 1345 MR#: [id number] Acct: [id number] Name: MARCI MARIE Rep #:[id number] : [id number] From: Eliezer Mai PCP: Dr. Arturo Amaya MD Status:REG R Location: History of Present Illness Date of Service: 11/07/22 Chief Complaint: Swelling, edema, and venous stasis dermatitis of the lower extremities bilaterally History of Wound: This is an 82-year-old female who presented with chronic venous stasis dermatitis in the lower extremities bilaterally. This had been associated with bilateral swelling and edema in her lower extremities which is chronic in nature. At the time of her initial presentation, the patient had no open wounds or ulcerations. She was recently treated for cellulitis with courses of oral antibiotics, including Keflex and doxycycline. The patient is not active. She is obese. She sleeps in an upright position in a chair. She denies a history of thrombophlebitis. She indicates that she has frequent episodes of cellulitis in her lower extremities. [facility] Medical History Acute kidney injury Aortic stenosis Atrial fibrillation Chronic venous insufficiency Diabetes mellitus Diabetic neuropathy Diaphragmatic hernia Dyslipidemia Edema of left lower extremity Edema of left lower extremity due to peripheral venous insufficiency Edema of right lower extremity Edema of right lower extremity due to peripheral venous insufficiency Esophageal spasm Esophageal stricture Gastroenteritis GERD (gastroesophageal reflux disease) Hearing deficit Hiatal hernia History of basal cell cancer History of esophageal dilatation HTN (hypertension) Hyperlipidemia Hypokalemia Metabolic acidosis Obesity (BMI 35.0-39.9 without comorbidity) Osteoporosis Overactive bladder Swelling of left lower extremity Swelling of right lower extremity Thrombocytopenia Tinnitus Venous stasis dermatitis Home Medications glimepiride 4 mg tablet 4 mg PO BID DIABETES 07/05/17 [History Last Taken 04/01/18] metformin 500 mg tablet 500 mg PO UD diabetes 07/05/17 [History Last Taken 04/01/18] furosemide 80 mg tablet 80 mg PO DAILY PRN edema 02/01/18 [History Last Taken Unknown] acetaminophen 500 mg tablet (Tylenol Extra Strength) 1,000 mg PO PRN PRN Pain 04/01/18 [History Last Taken 03/31/18] hydrochlorothiazide 25 mg tablet 25 mg PO DAILY diuretic 04/01/18 [History Last Taken Unknown] ibuprofen 200 mg tablet 200 mg PO PRN PRN Pain 04/01/18 [History Last Taken 04/01/18] metoprolol succinate 25 mg tablet,extended release 24 hr (Toprol XL) 25 mg PO DAILY blood pressure 04/01/18 [History Last Taken Unknown] cholecalciferol (vitamin D3) 50 mcg (2,000 unit) capsule 4,000 unit PO DAILY 01/11/20 [History Last Taken Unknown] amlodipine 2.5 mg tablet (Norvasc) 2.5 mg PO DAILY 10/10/22 [History Last Taken Unknown] aspirin 81 mg chewable tablet (Jalen Chewable Low Dose Aspirin) 1 tab PO DAILY 10/10/22 [History Last Taken Unknown] carvedilol 3.125 mg tablet (Coreg) 3.125 mg PO BID 10/10/22 [History Last Taken Unknown] nitroglycerin 0.4 mg sublingual tablet (Nitrostat) 0.4 mg sublingual Q5M 10/10/22 [History Last Taken Unknown] sitagliptin phosphate 100 mg tablet (Januvia) 100 mg PO DAILY 10/10/22 [History Last Taken Unknown] Allergy/AdvReac Type Severity Reaction Status Date / Time acetaminophen [From Vicodin] Allergy Other Verified 10/10/22 13:58 celecoxib [From Celebrex] Allergy Unknown Verified 10/10/22 13:58 codeine Allergy Unknown Verified 10/10/22 13:58 hydrocodone [From Vicodin] Allergy Other Verified 10/10/22 13:58 morphine Allergy Other Verified 10/10/22 13:58 niacin Allergy Unknown Verified 10/10/22 13:58 Penicillins Allergy Unknown Verified 10/10/22 13:58 prednisone Allergy Unknown Verified 10/10/22 13:58 Sulfa (Sulfonamide Allergy Unknown Verified 10/10/22 13:58 Antibiotics) Family History Mother Asthma Father Heart disease Hypertension Arthritis Surgical History History of cholecystectomy History of laparoscopic cholecystectomy History of nasal surgery History of surgery on left wrist History of tonsillectomy history ORIF left wrist History repair broken nose Social History Smoking Status: Never smoker alcohol intake: never substance use type: does not use Vital Signs Vital Signs Vital Signs: 11/07/22 13:27 Temperature 96.1 F L Temperature Source Temporal Pulse Rate 104 H Respiratory Rate 24 H Blood Pressure 150/81 H Blood Pressure Mean 104 Blood Pressure Source Monitor Weight Weight: 250 lb 2.49 oz Body Mass Index (BMI) 39.7 Physical Exam Const alert, oriented x3, no apparent distress and well nourished Constitutional Narrative: The patient is obese. A hearing deficit is easily discernible in conversation with the patient. General Appearance: cooperative, comfortable and well developed Orientation / Consciousness: awake, oriented to person, oriented to place and oriented to time HEENT normocephalic and head/scalp atraumatic Head and Scalp: normal to inspection, normocephalic and atraumatic External Ear: external ears normal Eyes PERRL and EOMs intact bilaterally General Eye: normal appearance of both eyes Resp normal respiratory effort, normal air movement, no retractions and no use of accessory muscles Effort and Inspection: able to speak in complete sentences Extremity no calf tenderness General Extremity: Negative for clubbing or cyanosis Skin Wound Narrative: Minimal swelling and edema are noted in the patient's lower extremities bilaterally. There has been significant improvement. Slight inflammatory erythema is noted in the gaiter areas bilaterally. There is no evidence of infectionor cellulitis. There are no darrel open wounds or ulcerations. Neuro oriented x3, CN's II-XII intact bilaterally and moves all extremities Sensorium / Orientation: awake, alert, oriented to person, oriented to place andoriented to time Psych Appearance: grossly normal and appropriate Attitude: calm Activity / Motor Behavior: appropriate eye contact Speech: normal speech Mood & Affect: euthymic mood Thought Process: normal thought process Thought Content: normal thought content Attention / Concentration: attention grossly intact Debridement Note Debridement Note Post-Debridement Measurements and Additional Note: Post-Debridement Measurements/Treatment - Nurse 1 - General Ulcer Assessment Start: 10/31/22 13:11 Freq: Status: Active Protocol: CORRINA.LOWISHANT Activity Type Activity Date Activity User E-sign Co-sign Detail Recorded Client Recorded Date Recorded By Document 10/31/22 13:12 DL [id number] 10/31/22 13:16 DL Document 11/02/22 13:44 [facility] [id number] 11/02/22 13:48 [facility] Document 11/07/22 13:27 DL [id number] 11/07/22 13:34 DL 10/31/22 11/02/22 11/07/22 13:12 13:44 13:27 WC - Today's Visit Information Type of service Follow-up Visit Nurse-only Follow-up Visit (Physician/DIESEL MAINTENANCE TECHNICIAN Visit (Physician/DIESEL MAINTENANCE TECHNICIAN ) ) Arrival Mode Ambulatory,Cane Ambulatory,Cane Transfer Assistance None None Stretcher Patient Identification Verified (Name & Yes Yes Yes ) Patient Requires Transmission-Based No No No Precautions Height and Weight Body Mass Index (BMI) 39.7 39.7 39.7 BMI Classification Obese Obese Obese Vital Signs Temperature (97.8 F-99.1 F) 97 F L 96.7 F L 96.1 F L Temperature Source Temporal Temporal Temporal Pulse Rate (60-100) 97 95 104 H Pulse Location Monitor Monitor Monitor Respiratory Rate (12-18) 22 H 16 24 H Respiratory rate source Observation Observation Observation Oxygen Delivery Method Room Air Blood Pressure (90/60-120/80) 135/71 H 155/85 H 150/81 H Blood Pressure Mean 92 108 104 Source Monitor Monitor Monitor Position Sitting Blood Pressure Location Left Arm History Since Last Visit- (Skip if this is Patient's initial visit) Have you changed medications since your No No No last visit? Any new allergies or adverse reactions No No No Had a fall/change in ADL's that may No No No increase risk of falls Signs or symptoms of abuse and/or No No No neglect since last visit Have you been in the hospital since your No No No last visit? Has dressing in place as prescribed Yes Yes Has compression in place as prescribed Yes Yes Yes Has offloadiing in place as prescribed N/A N/A N/A Experienced any changes in pain level or No No No management Left Footwear Regular Shoe Right Footwear Regular Shoe Pain Scale: 0-10 Numeric Is Patient Pain Free? Yes Yes Yes - Nurse 1 - General Ulcer Measurement Start: 10/31/22 13:11 Freq: Status: Active Protocol: Activity Type Activity Date Activity User E-sign Co-sign Detail Recorded Client Recorded Date Recorded By Document 10/31/22 13:12 DL [id number] 10/31/22 13:16 DL Document 11/02/22 13:44 [facility] [id number] 11/02/22 13:48 BMF Document 08/08/23 13:27 DL [id number] 11/07/22 13:34 DL 10/31/22 11/02/22 11/07/22 13:12 13:44 13:27 Wound Center Nurse 1 #1 -Wound Comment(s) edema only Lower Limb Edema Present Yes Right Calf (cm) 40 40.1 41 Right Ankle (cm) 22.8 22.1 22 Left Calf (cm) 43 36.7 37 Left Ankle (cm) 23.7 21.9 23.1 WC - Nurse 3 - General Ulcer D/C NN Start: 10/31/22 13:11 Freq: Status: Active Protocol: Activity Type Activity Date Activity User E-sign Co-sign Detail Recorded Client Recorded Date Recorded By Document 10/31/22 14:00 DL [id number] 10/31/22 14:01 DL Document 11/02/22 13:44 [facility] [id number] 11/02/22 13:48 BMF 10/31/22 11/02/22 14:00 13:44 Wound Care Center Nurse 3 cristi -Multi-Layered Wrap Application Multi-Layer Multi-Layer Comp - Bilat ($ Comp - Bilat ($ ) ) Treatment Response Procedure Procedure Tolerated Well Tolerated Well Vital Signs Temperature (97.8 F-99.1 F) 96.7 F L Temperature Source Temporal Pulse Rate (60-100) 95 Pulse Location Monitor Respiratory Rate (12-18) 16 Respiratory rate source Observation Oxygen Delivery Method Room Air Blood Pressure (90/60-120/80) 155/85 H Blood Pressure Mean 108 Source Monitor Position Sitting Blood Pressure Location Left Arm Pain Scale: 0-10 Numeric Is Patient Pain Free? Yes Yes WC - Visit Discharge Discharge Condition Stable Stable Ambulatory Status Ambulatory Ambulatory,Cane Transportation Private Auto Private Auto Assessment/Plan Assessment/Plan (1) Venous stasis dermatitis: CODE(S): I87.2 - Venous insufficiency (chronic) (peripheral) QUALIFIERS: Laterality: bilateral Qualified Code(s): I87.2 - Venous insufficiency (chronic) (peripheral) (2) Chronic venous insufficiency: CODE(S): I87.2 - Venous insufficiency (chronic) (peripheral) (3) Swelling of left lower extremity: CODE(S): M79.89 - Other specified soft tissue disorders (4) Swelling of right lower extremity: CODE(S): M79.89 - Other specified soft tissue disorders (5) Edema of left lower extremity: CODE(S): R60.0 - Localized edema (6) Edema of right lower extremity: CODE(S): R60.0 - Localized edema (7) Diabetes mellitus: CODE(S): E11.9 - Type 2 diabetes mellitus without complications QUALIFIERS: Diabetes mellitus type: type 2 Diabetes mellitus complication status: with unspecified complications Diabetes mellitus long terminsulin use: without chcf use Qualified Code(s): E11.8 - Type 2 diabetes mellitus with unspecified complications (8) Edema of left lower extremity due to peripheral venous insufficiency: CODE(S): I87.2 - Venous insufficiency (chronic) (peripheral) (9) Edema of right lower extremity due to peripheral venous insufficiency: CODE(S): I87.2 - Venous insufficiency (chronic) (peripheral) (10) GERD (gastroesophageal reflux disease): CODE(S): K21.9 - Gastro-esophageal reflux disease without esophagitis QUALIFIERS: Esophagitis presence: esophagitis presence not specified Qualified Code(s): K21.9 - Gastro-esophageal reflux disease without esophagitis (11) HTN (hypertension): CODE(S): I10 - Essential (primary) hypertension QUALIFIERS: Hypertension type: unspecified secondary hypertension Qualified Code(s): I15.9 - Secondary hypertension, unspecified; I15 - Secondary hypertension (12) Hyperlipidemia: CODE(S): E78.5 - Hyperlipidemia, unspecified (13) Hiatal hernia: CODE(S): K44.9 - Diaphragmatic hernia without obstruction or gangrene (14) Aortic stenosis: CODE(S): I35.0 - Nonrheumatic aortic (valve) stenosis (15) Diabetic neuropathy: CODE(S): E11.40 - Type 2 diabetes mellitus with diabetic neuropathy, unspecified (16) Diaphragmatic hernia: CODE(S): K44.9 - Diaphragmatic hernia without obstruction or gangrene (17) History of basal cell cancer: CODE(S): Z85.828 - Personal history of other malignant neoplasm of skin (18) Tinnitus: CODE(S): H93.19 - Tinnitus, unspecified ear (19) Hearing deficit: CODE(S): H91.90 - Unspecified hearing loss, unspecified ear (20) Esophageal stricture: CODE(S): K22.2 - Esophageal obstruction (21) Overactive bladder: CODE(S): N32.81 - Overactive bladder (22) Atrial fibrillation: CODE(S): I48.91 - Unspecified atrial fibrillation (23) Obesity (BMI 35.0-39.9 without comorbidity): CODE(S): E66.9 - Obesity, unspecified (24) History of cholecystectomy: CODE(S): Z90.49 - Acquired absence of other specified parts of digestive tract (25) History of surgery on left wrist: CODE(S): Z98.890 - Other specified postprocedural states (26) History of nasal surgery: CODE(S): Z98.890 - Other specified postprocedural states (27) History of tonsillectomy: CODE(S): Z90.89 - Acquired absence of other organs (28) History of esophageal dilatation: CODE(S): Z98.890 - Other specified postprocedural states PLAN: Plan This is a morbidly obese diabetic female who presented with stigmata of chronic venous disease. She was noted to have swelling and edema in her lower extremities bilaterally, associated with venous stasis dermatitis bilaterally inthe gaiter areas. The patient has a habit of sleeping in a chair at night. Sheis not very active. She is morbidly obese. She sits a great deal of each day. We have discussed the implementation of conservative treatment measures relativeto her chronic venous disease. These are to include leg elevation, both at night and during daytime hours. She has been encouraged to sleep on a flat surface at night. Leg elevation is to be to heart level, or higher, is much as possible. Prolonged idle sitting has been discouraged. Activity has been encouraged, though the patient is unlikely to enhance her activity level to any significant degree. Weight loss has been recommended. Optimization of the patient's glycemic control has been recommended. We are to continue the use of compression to the lower extremities bilaterally. The patient has been providedwith Tubigrip's of 20 to 30 mmHg compression. These are to be donned each morning, and doffed at night before bedtime. She is to continue sleeping on a flat mattress at night. The patient is to be discharged, as the swelling and edema is minimal, and there are no wounds or ulcerations. Patient has been provided a prescription for graduated compression stockings of 20 to 30 mmHg. Once obtained, they are to be worn on a daily basis. The patient will follow-uphenceforth on an as-needed basis. Total time: 24 minutes 11/07/22 1349 <Electronically signed by Eliezer Iglesias MD> Cosigner Signature (if applicable): CC: ~ Signed [facility] Work Phone: Hospital Discharge instructions Additional Instructions Your x-ray showed no signs of fracture or dislocation and therefore take Tylenol and/or Motrin for pain control and stay active you may also use lbqa-xdn-oggywbr medications such as IcyHot or lidocaine patches to help with pain and return to the ER should you have any [facility] Work Phone: Reason for referral (narrative)* Outpatient Procedure (Routine) - Pending Review Specialty Diagnoses / Procedures Referred By Jayden morrison Referred To Contact [facility] Diagnoses SOB (shortness of breath) Procedures SPIROMETRY - BASELINE AND POST DILATOR BRNCDILAT RSPSE SPMTRY PRE&POST-BRNCDILAT ADMN Sharona Bettencourt PA-C [address] [place] [address] [facility] [address] [place] [address] Referral ID Status Reason Start Date Expiration Date Visits Requested Visits Authorized [id number] Pending Review Auto-Generat ed Referral 09/07/2021 10/07/2022 1 1 * Consult, Test, Treat (Routine) - Pending Review Specialty Diagnoses / Procedures Referred By Jayden morrison Referred To Contact Gastroenterology Diagnoses Gastroesophageal reflux disease with esophagitis without hemorrhage Stricture and stenosis of esophagus History of colonic polyps Procedures CONSULT TO GASTROENTEROLOGY OFFICE/OUTPATIENT [facility] 60-74 MINUTES Sharona Bettencourt PA-C [address] [place] [address] Referral ID Status Reason Start Date Expiration Date Visits Requested Visits Authorized [id number] Pending Review PCP Requested Referral 09/07/2021 09/07/2022 1 1 [facility] for referral (narrative)* Outpatient Procedure (Routine) - Closed Specialty Diagnoses / Procedures Referred By Contac t Referred To Contact [facility] Diagnoses Chest pain, unspecified type Abnormal stress ECG with treadmill Procedures ECG COMPLETE ECG ROUTINE ECG W/LEAST 12 LDS W/I&R Hai Hopson MD [address] [place] [address] [facility] [address] [place] [address] Referral ID Status Reason Start Date Expiration Date V isits Requested Visits Authorized [id number] Closed Auto-Generate d Referral 10/24/2021 10/24/2022 1 1 [facility] for referral (narrative)* Diagnostic Procedure Only (Routine) - Pending Review Specialty Diagnoses / Procedures Referred By Contac t Referred To Contact XR IMAGING Diagnoses Anterolisthesis of cervical spine Procedures XR CERVICAL 2V FLEX/EXT RADEX SPINE CERVICAL 2 OR 3 VIEWS Arturo Amaya MD [address] [place] [address] Xr Imaging Referral ID Status Reason Start Date Expiration Date Visits Requested Visits Authorized [id number] Pending Review Auto-Generat ed Referral 12/27/2021 01/26/2023 1 1 [facility] for referral (narrative)* Diagnostic Procedure Only (Urgent) - Closed Specialty Diagnoses / Procedures Referred By Contac t Referred To Contact XR IMAGING Diagnoses Acute constipation Procedures XR ABDOMEN 1V SUPINE RADIOLOGIC EXAM ABDOMEN 1 VIEW Oanh Morrell APRN.CNP [address] [place] [address] Xr Imaging Referral ID Status Reason Start Date Expiration Date V isits Requested Visits Authorized [id number] Closed Auto-Generate d Referral 09/25/2022 10/25/2023 1 1 [facility] for referral (narrative)* Diagnostic Procedure Only (Urgent) - Closed Specialty Diagnoses / Procedures Referred By Contac t Referred To Contact XR IMAGING Diagnoses Acute constipation Procedures XR ABDOMEN 1V SUPINE RADIOLOGIC EXAM ABDOMEN 1 VIEW Oanh Morrell APRN.DIESEL MAINTENANCE TECHNICIAN [address] [place] [address] [place] [address] Referral ID Status Reason Start Date Expiration Date V isits Requested Visits Authorized [id number] Closed Auto-Generate d Referral 09/25/2022 10/25/2023 1 1 [facility] for referral (narrative)* Diagnostic Procedure Only (Routine) - Closed Specialty Diagnoses / Procedures Referred By Contac t Referred To Contact XR IMAGING Diagnoses Neck pain Procedures XR CERV OTHER 4V AP/LAT/OBL RADEX SPINE CERVICAL 4 OR 5 VIEWS Arturo Amaya MD [address] [place] [address] [place] [address] Referral ID Status Reason Start Date Expiration Date V isits Requested Visits Authorized [id number] Closed Auto-Generate d Referral 12/26/2021 01/25/2023 1 1 [facility] for referral (narrative)* Diagnostic Procedure Only (Urgent) - Closed Specialty Diagnoses / Procedures Referred By Contac t Referred To Contact XR IMAGING Diagnoses Fall (on) (from) other stairs and steps, initial encounter Rib pain on right side Procedures XR RIBS/CHEST 3V AP RIB/OBLS/CXR RIGHT RADEX RIBS UNI W/POSTEROANT CH MINIMUM 3 VIEWS Oanh Morrell APRN.DIESEL MAINTENANCE TECHNICIAN [address] [place] [address] [place] [address] Referral ID Status Reason Start Date Expiration Date V isits Requested Visits Authorized [id number] Closed Auto-Generate d Referral 04/26/2021 05/26/2022 1 1 [facility] for referral (narrative)* Diagnostic Procedure Only (Routine) - Authorized Specialty Diagnoses / Procedures Referred By Contac t Referred To Contact US IMAGING Diagnoses Elevated alkaline phosphatase level Elevated LFTs Procedures US ABD RIGHT UPPER QUADRANT US ABDOMINAL REAL TIME W/IMAGE LIMITED Sharona Bettencourt PA-C [address] [place] [address] [place] [address] Referral ID Status Reason Start Date Expiration Date Visits Requested Visits Authorized [id number] Authorized Auto-Generat ed Referral 04/17/2024 05/17/2025 1 1 * Consult, Test, Treat (Routine) - Authorized Specialty Diagnoses / Procedures [facility] Referred To Contact Endocrinology Diagnoses Uncontrolled type 2 diabetes mellitus with hyperglycemia (HCC) Procedures CONSULT TO ENDOCRINOLOGY OFFICE/OUTPATIENT [facility] HIGH MDM 60 MINUTES Sharona Bettencourt PA-C [address] [place] [address] Referral ID Status Reason Start Date Expiration Date Visits Requested Visits Authorized [id number] Authorized PCP Requested Referral 04/17/2024 04/17/2025 1 1 [facility] for referral (narrative)No reason for referral information availableWAs[facility] Work Phone: Reason for visit Narrative* Diagnostic Procedure Only (Urgent) - Closed Specialty Diagnoses / Procedures [facility] Referred To Contact XR IMAGING Diagnoses Acute constipation Procedures XR ABDOMEN 1V SUPINE RADIOLOGIC EXAM ABDOMEN 1 VIEW Oanh Morrell APRN.DIESEL MAINTENANCE TECHNICIAN [address] [place] [address] [place] [address] Referral ID Status Reason Start Date Expiration Date V isits Requested Visits Authorized [id number] Closed Auto-Generate d Referral 09/25/2022 10/25/2023 1 1 [facility] for visit Narrative* Diagnostic Procedure Only (Routine) - Closed Specialty Diagnoses / Procedures Referred By Contac t Referred To Contact XR IMAGING Diagnoses Neck pain Procedures XR CERV OTHER 4V AP/LAT/OBL RADEX SPINE CERVICAL 4 OR 5 VIEWS Arturo Amaya MD [address] [place] [address] [place] [address] Referral ID Status Reason Start Date Expiration Date V isits Requested Visits Authorized [id number] Closed Auto-Generate d Referral 12/26/2021 01/25/2023 1 1 [facility] for visit Narrative* Diagnostic Procedure Only (Urgent) - Closed Specialty Diagnoses / Procedures Referred By Contac t Referred To Contact XR IMAGING Diagnoses Fall (on) (from) other stairs and steps, initial encounter Rib pain on right side Procedures XR RIBS/CHEST 3V AP RIB/OBLS/CXR RIGHT RADEX RIBS UNI W/POSTEROANT CH MINIMUM 3 VIEWS Oanh Morrell APRN.CNP [address] [place] [address] [place] [address] Referral ID Status Reason Start Date Expiration Date V isits Requested Visits Authorized [id number] Closed Auto-Generate d Referral 04/26/2021 05/26/2022 1 1 [facility] for visit Narrative* Diagnostic Procedure Only (Routine) - Closed Specialty Diagnoses / Procedures Referred By Contac t Referred To Contact XR IMAGING Diagnoses Asymptomatic postmenopausal status Procedures DXA-AXIAL SKELETON DXA BONE DENSITY STUDY 1/> SITES AXIAL SKEL Sharona Bettencourt PA-C [address] [place] [address] Phone: tel: fax: [place] [address] Referral ID Status Reason Start Date Expiration Date V isits Requested Visits Authorized [id number] Closed Auto-Generate d Referral 04/15/2024 05/15/2025 1 1 [facility] for visit Narrative* Diagnostic Procedure Only (Routine) - Closed Specialty Diagnoses / Procedures Referred By Contac t Referred To Contact MOLECULAR [facility] FUNCTIONAL IMAGING Diagnoses Elevated alkaline phosphatase level Procedures NM BONE WHOLE BODY BONE &/JOINT IMAGING WHOLE BODY Sharona Bettencourt PA-C [address] [place] [address] Phone: tel: fax: Molecular Imaging [address] [place] [address] Phone: tel: Referral ID Status Reason Start Date Expiration Date V isits Requested Visits Authorized [id number] Closed Auto-Generate d Referral 05/19/2024 06/18/2025 1 1 [facility] Summary Purpose Family History No Family History Records Found Relationship Condition Age at Onset Recorded Date/T tanna mother Asthma Unknown father Cardiac disease Unknown Hypertension Unknown Arthritis Unknown Relationship Condition Age at Onset Recorded Date/T tanna mother Asthma Unknown Cardiac disease Unknown father Cardiac disease Unknown Hypertension Unknown Arthritis Unknown Alzheimer's dementia Unknown grandmother Hypertension Unknown Cerebrovascular accident (CVA) Unknown grandfather Cerebrovascular accident (CVA) Unknown brother Hypertension Unknown Diabetes mellitus Unknown Advance Directives No Advanced Directives Records FoundDocuments on File Type Date Recorded 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 Advance Directive(s) 11/04/2018 7:37 AM Advance Directive(s) 10/25/2016 2:13 PM Documents on File Type Date Recorded 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 Advance Directive(s) 11/04/2018 7:37 AM Advance Directive(s) 10/25/2016 2:13 PM Advance Directive Response Recorded Date/ Time Advance Directives Yes April 22, 2014 2:09am Living Will No October 27, 2021 8:00pm Power of Director Of Neurology Yes October 27 2 8:00pm Advance Directive Response Recorded Date/ Time Advance Directives Yes April 22, 2014 3:09am Living Will No October 27, 2021 9:00pm Power of Director Of Neurology Yes October 27 2 9:00pm Advance Directive Response Recorded Date/ Time Advance Directives Yes April 22, 2014 3:09am Living Will No November 14 3 11:27pm Power of Director Of Neurology No November 14, 2 023 11:27pm Advance Directive Response Recorded Date/ Time Advance Directives Yes April 22, 2014 3:09am Living Will No December 07, 023 1:10am Power of Director Of Neurology No December 07, 2022 1:10am Advance Directive Response Recorded Date/ Time Advance Directives Yes April 22, 2014 3:09am Living Will No August 12, 2023 1 1:59am Power of Director Of Neurology No August 12, 2023 11:59am Advance Directive Response Recorded Date/ Time Living Will Yes April 22 10:41pm Power of Director Of Neurology Yes April 22, 2024 10:41pm Name of Medical Power of Director Of Neurology DOROTHY SANCHEZ April 22, 2024 10:41pm Living Will Yes June 16, 2024 3:24pm Power of Director Of Neurology Yes June 16 3:24pm Name of Medical Power of Director Of Neurology Liyah loving June 16, 2024 3:24pm Advance Directives Yes April 22, 2014 3:09am Advance Directive Response Recorded Date/ Time Do you have a Healthcare Power of Director Of Neurology? Yes August 21, 2024 8:35am Name of Medical Power of Director Of Neurology Liyah Cuba August 21, 2024 8:35am Advance Directives Yes April 22, 2014 3:09am Reason for Referral Specialty Diagnoses / Procedures Referred By Jayden t Referred To Contact Cardiology Diagnoses Chest pain, unspecified type Abnormal stress ECG with treadmill Procedures CONSULT TO CARDIOLOGY OFFICE/OUTPATIENT NEW HIGH MDM 60-74 MINUTES Arturo Amaya MD [address] [place] [address] Referral ID Status Reason Start Date Expiration Date Visits Requested Visits Authorized [id number] Pending Review PCP Requested Referral 06/20/2021 06/20/2022 1 1 Specialty Diagnoses / Procedures Referred By Jayden morrison Referred To Contact CT IMAGING Diagnoses Headache, new daily persistent (NDPH) Tinnitus of both ears Hypoglycemia Procedures CT BRAIN WO IVCON CT HEAD/BRAIN W/O CONTRAST MATERIAL Sharona Bettencourt PA-C [address] [place] [address] Ct Imaging Referral ID Status Reason Start Date Expiration Date Visits Requested Visits Authorized [id number] Authorized Auto-Generat ed Referral 11/22/2021 12/22/2022 1 1 Referral ID Status Reason Start Date Expiration Date V isits Requested Visits Authorized [id number] Closed Auto-Generate d Referral 11/22/2021 12/22/2022 1 1 Specialty Diagnoses / Procedures Referred By Jayden morrison Referred To Contact Arturo Amaya MD [address] [place] [address] Referral ID Status Reason Start Date Expiration Date V isits Requested Visits Authorized [id number] Authorized 05/19/2023 08/19/2024 1 1 Referral ID Status Reason Start Date Expiration Date V isits Requested Visits Authorized [id number] Authorized 05/19/2023 08/19/2024 1 1 Specialty Diagnoses / Procedures Referred By Contac t Referred To Contact Urology Diagnoses Urgency incontinence Procedures CONSULT TO UROLOGY OFFICE/OUTPATIENT [facility] 60 MINUTES Kim Rob PA-C [address] [facility] [address] [place] [id number] Referral ID Status Reason Start Date Expiration Date Visits Requested Visits Authorized [id number] Authorized PCP Requested Referral 04/05/2024 03/29/2025 1 1 Specialty Diagnoses / Procedures Referred By Contac t Referred To Contact Urology Diagnoses Urge incontinence Procedures CONSULT TO UROLOGY OFFICE/OUTPATIENT [facility] 60 MINUTES Sharona Bettencourt PA-C [address] [place] [address] Referral ID Status Reason Start Date Expiration Date Visits Requested Visits Authorized [id number] Authorized PCP Requested Referral 04/15/2024 04/15/2025 1 1 Specialty Diagnoses / Procedures Referred By Contac t Referred To Contact XR IMAGING Diagnoses Asymptomatic postmenopausal status Procedures DXA-AXIAL SKELETON DXA BONE DENSITY STUDY 1/ SITES AXIAL SKEL Sharona Bettencourt PA-C [address] [place] [address] [place] [address] Referral ID Status Reason Start Date Expiration Date Visits Requested Visits Authorized [id number] Authorized Auto-Generat ed Referral 04/15/2024 05/15/2025 1 1 Specialty Diagnoses / Procedures Referred By Contac t Referred To Contact Gastroenterology Diagnoses Screening for colon cancer History of colonic polyps Dysphagia, unspecified type Procedures CONSULT TO GASTROENTEROLOGY OFFICE/OUTPATIENT [facility] 60 MINUTES Sharona Bettencourt PA-C [address] [place] [address] Referral ID Status Reason Start Date Expiration Date Visits Requested Visits Authorized [id number] Authorized PCP Requested Referral 04/15/2024 04/15/2025 1 1 Specialty Diagnoses / Procedures Referred By Jayden morrison Referred To Contact US IMAGING Diagnoses Multiple thyroid nodules Procedures US THYROID/PARATHYROID US SOFT TISSUE HEAD & NECK REAL TIME IMGE Sharona Jordan PA-C [address] [place] [address] [place] [address] Referral ID Status Reason Start Date Expiration Date Visits Requested Visits Authorized [id number] Authorized Auto-Generat ed Referral 04/15/2024 05/15/2025 1 1 Chief Complaint and Reason for Visit Chief Complaint PARESTHESIA OF SKIN PARESTHESIA OF SKIN Chief Complaint WOUND Reason for Visit Aortic stenosis Atrial fibrillation Diabetic neuropathy Diaphragmatic hernia Edema of left lower extremity Edema of left lower extremity due to peripheral venous insufficiency Edema of right lower extremity Edema of right lower extremity due to peripheral venous insufficiency Esophageal stricture Hearing deficit History of basal cell cancer History of cholecystectomy History of esophageal dilatation History of nasal surgery History of surgery on left wrist History of tonsillectomy Hyperlipidemia Obesity (BMI 35.0-39.9 without comorbidity) Overactive bladder Swelling of left lower extremity Swelling of right lower extremity Tinnitus Venous stasis dermatitis Chronic venous insufficiency Diabetes mellitus GERD (gastroesophageal reflux disease) Hiatal hernia HTN (hypertension) Chief Complaint WOUND WOUND Reason for Visit Aortic stenosis Atrial fibrillation Diabetic neuropathy Diaphragmatic hernia Edema of left lower extremity Edema of left lower extremity due to peripheral venous insufficiency Edema of right lower extremity Edema of right lower extremity due to peripheral venous insufficiency Esophageal stricture Hearing deficit History of basal cell cancer History of cholecystectomy History of esophageal dilatation History of nasal surgery History of surgery on left wrist History of tonsillectomy Hyperlipidemia Obesity (BMI 35.0-39.9 without comorbidity) Overactive bladder Swelling of left lower extremity Swelling of right lower extremity Tinnitus Venous stasis dermatitis Chronic venous insufficiency Diabetes mellitus GERD (gastroesophageal reflux disease) Hiatal hernia HTN (hypertension) Aortic stenosis Atrial fibrillation Diabetic neuropathy Diaphragmatic hernia Edema of left lower extremity Edema of left lower extremity due to peripheral venous insufficiency Edema of right lower extremity Edema of right lower extremity due to peripheral venous insufficiency Esophageal stricture Hearing deficit History of basal cell cancer History of cholecystectomy History of esophageal dilatation History of nasal surgery History of surgery on left wrist History of tonsillectomy Hyperlipidemia Obesity (BMI 35.0-39.9 without comorbidity) Overactive bladder Swelling of left lower extremity Swelling of right lower extremity Tinnitus Venous stasis dermatitis Chronic venous insufficiency Diabetes mellitus GERD (gastroesophageal reflux disease) Hiatal hernia HTN (hypertension) Chief Complaint WOUND WOUND S/P FALL Reason for Visit Aortic stenosis Atrial fibrillation Diabetic neuropathy Diaphragmatic hernia Edema of left lower extremity Edema of left lower extremity due to peripheral venous insufficiency Edema of right lower extremity Edema of right lower extremity due to peripheral venous insufficiency Esophageal stricture Hearing deficit History of basal cell cancer History of cholecystectomy History of esophageal dilatation History of nasal surgery History of surgery on left wrist History of tonsillectomy Hyperlipidemia Obesity (BMI 35.0-39.9 without comorbidity) Overactive bladder Swelling of left lower extremity Swelling of right lower extremity Tinnitus Venous stasis dermatitis Chronic venous insufficiency Diabetes mellitus GERD (gastroesophageal reflux disease) Hiatal hernia HTN (hypertension) Aortic stenosis Atrial fibrillation Diabetic neuropathy Diaphragmatic hernia Edema of left lower extremity Edema of left lower extremity due to peripheral venous insufficiency Edema of right lower extremity Edema of right lower extremity due to peripheral venous insufficiency Esophageal stricture Hearing deficit History of basal cell cancer History of cholecystectomy History of esophageal dilatation History of nasal surgery History of surgery on left wrist History of tonsillectomy Hyperlipidemia Obesity (BMI 35.0-39.9 without comorbidity) Overactive bladder Swelling of left lower extremity Swelling of right lower extremity Tinnitus Venous stasis dermatitis Chronic venous insufficiency Diabetes mellitus GERD (gastroesophageal reflux disease) Hiatal hernia HTN (hypertension) Chief Complaint WOUND WOUND S/P FALL headache, chest heaviness, heart racing Reason for Visit Aortic stenosis Atrial fibrillation Diabetic neuropathy Diaphragmatic hernia Edema of left lower extremity Edema of left lower extremity due to peripheral venous insufficiency Edema of right lower extremity Edema of right lower extremity due to peripheral venous insufficiency Esophageal stricture Hearing deficit History of basal cell cancer History of cholecystectomy History of esophageal dilatation History of nasal surgery History of surgery on left wrist History of tonsillectomy Hyperlipidemia Obesity (BMI 35.0-39.9 without comorbidity) Overactive bladder Swelling of left lower extremity Swelling of right lower extremity Tinnitus Venous stasis dermatitis Chronic venous insufficiency Diabetes mellitus GERD (gastroesophageal reflux disease) Hiatal hernia HTN (hypertension) Aortic stenosis Atrial fibrillation Diabetic neuropathy Diaphragmatic hernia Edema of left lower extremity Edema of left lower extremity due to peripheral venous insufficiency Edema of right lower extremity Edema of right lower extremity due to peripheral venous insufficiency Esophageal stricture Hearing deficit History of basal cell cancer History of cholecystectomy History of esophageal dilatation History of nasal surgery History of surgery on left wrist History of tonsillectomy Hyperlipidemia Obesity (BMI 35.0-39.9 without comorbidity) Overactive bladder Swelling of left lower extremity Swelling of right lower extremity Tinnitus Venous stasis dermatitis Chronic venous insufficiency Diabetes mellitus GERD (gastroesophageal reflux disease) Hiatal hernia HTN (hypertension) Chief Complaint CELLULITIS, GENERALI ZED WEAKNESS Chief Complaint Admit Date MENDEZ, HTN April 22, 2024 9 :34pm Pre Colon April 30, 2024 3 :23pm FALL June 16, 2024 2:0 8pm Reason for Visit Admit Date Difficulty swallowing April 30, 2024 3:23pm IBS (irritable bowel syndrome) April 032024 3:23pm GERD (gastroesophageal reflux disease) J anuary 2024 3:23pm Chief Complaint Admit Date headache, hypertension August 21, 2024 8: 28am EST (SELF) October 29, 2024 11:1 8am Additional Source Comments INFORMATION SOURCE (unrecogn ized section and content) DATE CREATED AUTHOR 09/24/2017 [facility] ([place]) DATE CREATED AUTHOR AUTHOR'S ORGANIZ ATION 09/28/2017 [facility] DATE CREATED AUTHOR AUTHOR'S ORGANIZ ATION 11/26/2021 [facility] DATE CREATED AUTHOR AUTHOR'S ORGANIZ ATION 11/05/2024 [facility] DATE CREATED AUTHOR AUTHOR'S ORGANIZ ATION 11/08/2024 [facility] Source Comments (unrecognize d section and content) In the event this informatio n is protected by the Federal Confidentiality of Alcohol and Drug Abuse Patient Records regulations: The Federal rules restrict any use of the information to criminally investigate or prosecute any alcohol or drug abuse patient.[facility] the event this information is protected by the Federal Confidentiality of Alcohol and Drug Abuse Patient Records regulations: The Federal rules restrict any use of the information to criminally investigate or prosecute any alcohol or drug abuse patient.[facility] HospitalIn the event this information is protected by the Federal Confidentiality of Alcohol and Drug Abuse Patient Records regulations: The Federal rules restrict any use of the information to criminally investigate or prosecute any alcohol or drug abuse patient.[facility] HospitalIn the event this information is protected by the Federal Confidentiality of Alcohol and Drug Abuse Patient Records regulations: The Federal rules restrict any use of the information to criminally investigate or prosecute any alcohol or drug abuse patient.[facility] HospitalIn the event this information is protected by the Federal Confidentiality of Alcohol and Drug Abuse Patient Records regulations: The Federal rules restrict any use of the information to criminally investigate or prosecute any alcohol or drug abuse patient.[facility] HospitalIn the event this information is protected by the Federal Confidentiality of Alcohol and Drug Abuse Patient Records regulations: The Federal rules restrict any use of the information to criminally investigate or prosecute any alcohol or drug abuse patient.[facility] HospitalIn the event this information is protected by the Federal Confidentiality of Alcohol and Drug Abuse Patient Records regulations: The Federal rules restrict any use of the information to criminally investigate or prosecute any alcohol or drug abuse patient.[facility] HospitalIn the event this information is protected by the Federal Confidentiality of Alcohol and Drug Abuse Patient Records regulations: The Federal rules restrict any use of the information to criminally investigate or prosecute any alcohol or drug abuse patient.[facility] HospitalIn the event this information is protected by the Federal Confidentiality of Alcohol and Drug Abuse Patient Records regulations: The Federal rules restrict any use of the information to criminally investigate or prosecute any alcohol or drug abuse patient.[facility] HospitalIn the event this information is protected by the Federal Confidentiality of Alcohol and Drug Abuse Patient Records regulations: The Federal rules restrict any use of the information to criminally investigate or prosecute any alcohol or drug abuse patient.[facility] HospitalIn the event this information is protected by the Federal Confidentiality of Alcohol and Drug Abuse Patient Records regulations: The Federal rules restrict any use of the information to criminally investigate or prosecute any alcohol or drug abuse patient.[facility] HospitalIn the event this information is protected by the Federal Confidentiality of Alcohol and Drug Abuse Patient Records regulations: The Federal rules restrict any use of the information to criminally investigate or prosecute any alcohol or drug abuse patient.[facility] HospitalIn the event this information is protected by the Federal Confidentiality of Alcohol and Drug Abuse Patient Records regulations: The Federal rules restrict any use of the information to criminally investigate or prosecute any alcohol or drug abuse patient.[facility] HospitalIn the event this information is protected by the Federal Confidentiality of Alcohol and Drug Abuse Patient Records regulations: The Federal rules restrict any use of the information to criminally investigate or prosecute any alcohol or drug abuse patient.[facility] HospitalIn the event this information is protected by the Federal Confidentiality of Alcohol and Drug Abuse Patient Records regulations: The Federal rules restrict any use of the information to criminally investigate or prosecute any alcohol or drug abuse patient.[facility] HospitalIn the event this information is protected by the Federal Confidentiality of Alcohol and Drug Abuse Patient Records regulations: The Federal rules restrict any use of the information to criminally investigate or prosecute any alcohol or drug abuse patient.[facility] HospitalIn the event this information is protected by the Federal Confidentiality of Alcohol and Drug Abuse Patient Records regulations: The Federal rules restrict any use of the information to criminally investigate or prosecute any alcohol or drug abuse patient.[facility] HospitalIn the event this information is protected by the Federal Confidentiality of Alcohol and Drug Abuse Patient Records regulations: The Federal rules restrict any use of the information to criminally investigate or prosecute any alcohol or drug abuse patient.[facility] HospitalIn the event this information is protected by the Federal Confidentiality of Alcohol and Drug Abuse Patient Records regulations: The Federal rules restrict any use of the information to criminally investigate or prosecute any alcohol or drug abuse patient.[facility] HospitalIn the event this information is protected by the Federal Confidentiality of Alcohol and Drug Abuse Patient Records regulations: The Federal rules restrict any use of the information to criminally investigate or prosecute any alcohol or drug abuse patient.[facility] HospitalIn the event this information is protected by the Federal Confidentiality of Alcohol and Drug Abuse Patient Records regulations: The Federal rules restrict any use of the information to criminally investigate or prosecute any alcohol or drug abuse patient.[facility] HospitalIn the event this information is protected by the Federal Confidentiality of Alcohol and Drug Abuse Patient Records regulations: The Federal rules restrict any use of the information to criminally investigate or prosecute any alcohol or drug abuse patient.[facility] HospitalIn the event this information is protected by the Federal Confidentiality of Alcohol and Drug Abuse Patient Records regulations: The Federal rules restrict any use of the information to criminally investigate or prosecute any alcohol or drug abuse patient.[facility] HospitalIn the event this information is protected by the Federal Confidentiality of Alcohol and Drug Abuse Patient Records regulations: The Federal rules restrict any use of the information to criminally investigate or prosecute any alcohol or drug abuse patient.[facility] HospitalIn the event this information is protected by the Federal Confidentiality of Alcohol and Drug Abuse Patient Records regulations: The Federal rules restrict any use of the information to criminally investigate or prosecute any alcohol or drug abuse patient.[facility] HospitalIn the event this information is protected by the Federal Confidentiality of Alcohol and Drug Abuse Patient Records regulations: The Federal rules restrict any use of the information to criminally investigate or prosecute any alcohol or drug abuse patient.[facility] HospitalIn the event this information is protected by the Federal Confidentiality of Alcohol and Drug Abuse Patient Records regulations: The Federal rules restrict any use of the information to criminally investigate or prosecute any alcohol or drug abuse patient.[facility] HospitalIn the event this information is protected by the Federal Confidentiality of Alcohol and Drug Abuse Patient Records regulations: The Federal rules restrict any use of the information to criminally investigate or prosecute any alcohol or drug abuse patient.[facility] HospitalIn the event this information is protected by the Federal Confidentiality of Alcohol and Drug Abuse Patient Records regulations: The Federal rules restrict any use of the information to criminally investigate or prosecute any alcohol or drug abuse patient.[facility] HospitalIn the event this information is protected by the Federal Confidentiality of Alcohol and Drug Abuse Patient Records regulations: The Federal rules restrict any use of the information to criminally investigate or prosecute any alcohol or drug abuse patient.[facility] HospitalIn the event this information is protected by the Federal Confidentiality of Alcohol and Drug Abuse Patient Records regulations: The Federal rules restrict any use of the information to criminally investigate or prosecute any alcohol or drug abuse patient.[facility] HospitalIn the event this information is protected by the Federal Confidentiality of Alcohol and Drug Abuse Patient Records regulations: The Federal rules restrict any use of the information to criminally investigate or prosecute any alcohol or drug abuse patient.[facility] HospitalIn the event this information is protected by the Federal Confidentiality of Alcohol and Drug Abuse Patient Records regulations: The Federal rules restrict any use of the information to criminally investigate or prosecute any alcohol or drug abuse patient.[facility] HospitalIn the event this information is protected by the Federal Confidentiality of Alcohol and Drug Abuse Patient Records regulations: The Federal rules restrict any use of the information to criminally investigate or prosecute any alcohol or drug abuse patient.[facility] HospitalIn the event this information is protected by the Federal Confidentiality of Alcohol and Drug Abuse Patient Records regulations: The Federal rules restrict any use of the information to criminally investigate or prosecute any alcohol or drug abuse patient.[facility] HospitalIn the event this information is protected by the Federal Confidentiality of Alcohol and Drug Abuse Patient Records regulations: The Federal rules restrict any use of the information to criminally investigate or prosecute any alcohol or drug abuse patient.[facility] HospitalIn the event this information is protected by the Federal Confidentiality of Alcohol and Drug Abuse Patient Records regulations: The Federal rules restrict any use of the information to criminally investigate or prosecute any alcohol or drug abuse patient.[facility] HospitalIn the event this information is protected by the Federal Confidentiality of Alcohol and Drug Abuse Patient Records regulations: The Federal rules restrict any use of the information to criminally investigate or prosecute any alcohol or drug abuse patient.[facility] HospitalIn the event this information is protected by the Federal Confidentiality of Alcohol and Drug Abuse Patient Records regulations: The Federal rules restrict any use of the information to criminally investigate or prosecute any alcohol or drug abuse patient.[facility] HospitalIn the event this information is protected by the Federal Confidentiality of Alcohol and Drug Abuse Patient Records regulations: The Federal rules restrict any use of the information to criminally investigate or prosecute any alcohol or drug abuse patient.[facility] HospitalIn the event this information is protected by the Federal Confidentiality of Alcohol and Drug Abuse Patient Records regulations: The Federal rules restrict any use of the information to criminally investigate or prosecute any alcohol or drug abuse patient.[facility] HospitalIn the event this information is protected by the Federal Confidentiality of Alcohol and Drug Abuse Patient Records regulations: The Federal rules restrict any use of the information to criminally investigate or prosecute any alcohol or drug abuse patient.[facility] HospitalIn the event this information is protected by the Federal Confidentiality of Alcohol and Drug Abuse Patient Records regulations: The Federal rules restrict any use of the information to criminally investigate or prosecute any alcohol or drug abuse patient.[facility] HospitalIn the event this information is protected by the Federal Confidentiality of Alcohol and Drug Abuse Patient Records regulations: The Federal rules restrict any use of the information to criminally investigate or prosecute any alcohol or drug abuse patient.[facility] HospitalIn the event this information is protected by the Federal Confidentiality of Alcohol and Drug Abuse Patient Records regulations: The Federal rules restrict any use of the information to criminally investigate or prosecute any alcohol or drug abuse patient.[facility] HospitalIn the event this information is protected by the Federal Confidentiality of Alcohol and Drug Abuse Patient Records regulations: The Federal rules restrict any use of the information to criminally investigate or prosecute any alcohol or drug abuse patient.[facility] HospitalIn the event this information is protected by the Federal Confidentiality of Alcohol and Drug Abuse Patient Records regulations: The Federal rules restrict any use of the information to criminally investigate or prosecute any alcohol or drug abuse patient.[facility] HospitalIn the event this information is protected by the Federal Confidentiality of Alcohol and Drug Abuse Patient Records regulations: The Federal rules restrict any use of the information to criminally investigate or prosecute any alcohol or drug abuse patient.[facility] HospitalIn the event this information is protected by the Federal Confidentiality of Alcohol and Drug Abuse Patient Records regulations: The Federal rules restrict any use of the information to criminally investigate or prosecute any alcohol or drug abuse patient.[facility] HospitalIn the event this information is protected by the Federal Confidentiality of Alcohol and Drug Abuse Patient Records regulations: The Federal rules restrict any use of the information to criminally investigate or prosecute any alcohol or drug abuse patient.[facility] HospitalIn the event this information is protected by the Federal Confidentiality of Alcohol and Drug Abuse Patient Records regulations: The Federal rules restrict any use of the information to criminally investigate or prosecute any alcohol or drug abuse patient.[facility] HospitalIn the event this information is protected by the Federal Confidentiality of Alcohol and Drug Abuse Patient Records regulations: The Federal rules restrict any use of the information to criminally investigate or prosecute any alcohol or drug abuse patient.[facility] HospitalIn the event this information is protected by the Federal Confidentiality of Alcohol and Drug Abuse Patient Records regulations: The Federal rules restrict any use of the information to criminally investigate or prosecute any alcohol or drug abuse patient.[facility] HospitalIn the event this information is protected by the Federal Confidentiality of Alcohol and Drug Abuse Patient Records regulations: The Federal rules restrict any use of the information to criminally investigate or prosecute any alcohol or drug abuse patient.[facility] HospitalIn the event this information is protected by the Federal Confidentiality of Alcohol and Drug Abuse Patient Records regulations: The Federal rules restrict any use of the information to criminally investigate or prosecute any alcohol or drug abuse patient.[facility] HospitalIn the event this information is protected by the Federal Confidentiality of Alcohol and Drug Abuse Patient Records regulations: The Federal rules restrict any use of the information to criminally investigate or prosecute any alcohol or drug abuse patient.[facility] HospitalIn the event this information is protected by the Federal Confidentiality of Alcohol and Drug Abuse Patient Records regulations: The Federal rules restrict any use of the information to criminally investigate or prosecute any alcohol or drug abuse patient.[facility] HospitalIn the event this information is protected by the Federal Confidentiality of Alcohol and Drug Abuse Patient Records regulations: The Federal rules restrict any use of the information to criminally investigate or prosecute any alcohol or drug abuse patient.[facility] HospitalIn the event this information is protected by the Federal Confidentiality of Alcohol and Drug Abuse Patient Records regulations: The Federal rules restrict any use of the information to criminally investigate or prosecute any alcohol or drug abuse patient.[facility] HospitalIn the event this information is protected by the Federal Confidentiality of Alcohol and Drug Abuse Patient Records regulations: The Federal rules restrict any use of the information to criminally investigate or prosecute any alcohol or drug abuse patient.[facility] HospitalIn the event this information is protected by the Federal Confidentiality of Alcohol and Drug Abuse Patient Records regulations: The Federal rules restrict any use of the information to criminally investigate or prosecute any alcohol or drug abuse patient.[facility] HospitalIn the event this information is protected by the Federal Confidentiality of Alcohol and Drug Abuse Patient Records regulations: The Federal rules restrict any use of the information to criminally investigate or prosecute any alcohol or drug abuse patient.[facility] HospitalIn the event this information is protected by the Federal Confidentiality of Alcohol and Drug Abuse Patient Records regulations: The Federal rules restrict any use of the information to criminally investigate or prosecute any alcohol or drug abuse patient.[facility] HospitalIn the event this information is protected by the Federal Confidentiality of Alcohol and Drug Abuse Patient Records regulations: The Federal rules restrict any use of the information to criminally investigate or prosecute any alcohol or drug abuse patient.[facility] HospitalIn the event this information is protected by the Federal Confidentiality of Alcohol and Drug Abuse Patient Records regulations: The Federal rules restrict any use of the information to criminally investigate or prosecute any alcohol or drug abuse patient.[facility] HospitalIn the event this information is protected by the Federal Confidentiality of Alcohol and Drug Abuse Patient Records regulations: The Federal rules restrict any use of the information to criminally investigate or prosecute any alcohol or drug abuse patient.[facility] HospitalIn the event this information is protected by the Federal Confidentiality of Alcohol and Drug Abuse Patient Records regulations: The Federal rules restrict any use of the information to criminally investigate or prosecute any alcohol or drug abuse patient.[facility] HospitalIn the event this information is protected by the Federal Confidentiality of Alcohol and Drug Abuse Patient Records regulations: The Federal rules restrict any use of the information to criminally investigate or prosecute any alcohol or drug abuse patient.[facility] HospitalIn the event this information is protected by the Federal Confidentiality of Alcohol and Drug Abuse Patient Records regulations: The Federal rules restrict any use of the information to criminally investigate or prosecute any alcohol or drug abuse patient.[facility] HospitalIn the event this information is protected by the Federal Confidentiality of Alcohol and Drug Abuse Patient Records regulations: The Federal rules restrict any use of the information to criminally investigate or prosecute any alcohol or drug abuse patient.[facility] HospitalIn the event this information is protected by the Federal Confidentiality of Alcohol and Drug Abuse Patient Records regulations: The Federal rules restrict any use of the information to criminally investigate or prosecute any alcohol or drug abuse patient.[facility] HospitalIn the event this information is protected by the Federal Confidentiality of Alcohol and Drug Abuse Patient Records regulations: The Federal rules restrict any use of the information to criminally investigate or prosecute any alcohol or drug abuse patient.[facility] HospitalIn the event this information is protected by the Federal Confidentiality of Alcohol and Drug Abuse Patient Records regulations: The Federal rules restrict any use of the information to criminally investigate or prosecute any alcohol or drug abuse patient.[facility] HospitalIn the event this information is protected by the Federal Confidentiality of Alcohol and Drug Abuse Patient Records regulations: The Federal rules restrict any use of the information to criminally investigate or prosecute any alcohol or drug abuse patient.[facility] HospitalIn the event this information is protected by the Federal Confidentiality of Alcohol and Drug Abuse Patient Records regulations: The Federal rules restrict any use of the information to criminally investigate or prosecute any alcohol or drug abuse patient.[facility] HospitalIn the event this information is protected by the Federal Confidentiality of Alcohol and Drug Abuse Patient Records regulations: The Federal rules restrict any use of the information to criminally investigate or prosecute any alcohol or drug abuse patient.[facility] HospitalIn the event this information is protected by the Federal Confidentiality of Alcohol and Drug Abuse Patient Records regulations: The Federal rules restrict any use of the information to criminally investigate or prosecute any alcohol or drug abuse patient.[facility] HospitalIn the event this information is protected by the Federal Confidentiality of Alcohol and Drug Abuse Patient Records regulations: The Federal rules restrict any use of the information to criminally investigate or prosecute any alcohol or drug abuse patient.[facility] HospitalIn the event this information is protected by the Federal Confidentiality of Alcohol and Drug Abuse Patient Records regulations: The Federal rules restrict any use of the information to criminally investigate or prosecute any alcohol or drug abuse patient.[facility] HospitalIn the event this information is protected by the Federal Confidentiality of Alcohol and Drug Abuse Patient Records regulations: The Federal rules restrict any use of the information to criminally investigate or prosecute any alcohol or drug abuse patient.[facility] HospitalIn the event this information is protected by the Federal Confidentiality of Alcohol and Drug Abuse Patient Records regulations: The Federal rules restrict any use of the information to criminally investigate or prosecute any alcohol or drug abuse patient.[facility] HospitalIn the event this information is protected by the Federal Confidentiality of Alcohol and Drug Abuse Patient Records regulations: The Federal rules restrict any use of the information to criminally investigate or prosecute any alcohol or drug abuse patient.[facility] HospitalIn the event this information is protected by the Federal Confidentiality of Alcohol and Drug Abuse Patient Records regulations: The Federal rules restrict any use of the information to criminally investigate or prosecute any alcohol or drug abuse patient.[facility] HospitalIn the event this information is protected by the Federal Confidentiality of Alcohol and Drug Abuse Patient Records regulations: The Federal rules restrict any use of the information to criminally investigate or prosecute any alcohol or drug abuse patient.[facility] HospitalIn the event this information is protected by the Federal Confidentiality of Alcohol and Drug Abuse Patient Records regulations: The Federal rules restrict any use of the information to criminally investigate or prosecute any alcohol or drug abuse patient.[facility] HospitalIn the event this information is protected by the Federal Confidentiality of Alcohol and Drug Abuse Patient Records regulations: The Federal rules restrict any use of the information to criminally investigate or prosecute any alcohol or drug abuse patient.[facility] HospitalIn the event this information is protected by the Federal Confidentiality of Alcohol and Drug Abuse Patient Records regulations: The Federal rules restrict any use of the information to criminally investigate or prosecute any alcohol or drug abuse patient.[facility] HospitalIn the event this information is protected by the Federal Confidentiality of Alcohol and Drug Abuse Patient Records regulations: The Federal rules restrict any use of the information to criminally investigate or prosecute any alcohol or drug abuse patient.[facility] HospitalIn the event this information is protected by the Federal Confidentiality of Alcohol and Drug Abuse Patient Records regulations: The Federal rules restrict any use of the information to criminally investigate or prosecute any alcohol or drug abuse patient.[facility] HospitalIn the event this information is protected by the Federal Confidentiality of Alcohol and Drug Abuse Patient Records regulations: The Federal rules restrict any use of the information to criminally investigate or prosecute any alcohol or drug abuse patient.[facility] HospitalIn the event this information is protected by the Federal Confidentiality of Alcohol and Drug Abuse Patient Records regulations: The Federal rules restrict any use of the information to criminally investigate or prosecute any alcohol or drug abuse patient.[facility] HospitalIn the event this information is protected by the Federal Confidentiality of Alcohol and Drug Abuse Patient Records regulations: The Federal rules restrict any use of the information to criminally investigate or prosecute any alcohol or drug abuse patient.[facility] HospitalIn the event this information is protected by the Federal Confidentiality of Alcohol and Drug Abuse Patient Records regulations: The Federal rules restrict any use of the information to criminally investigate or prosecute any alcohol or drug abuse patient.[facility] HospitalIn the event this information is protected by the Federal Confidentiality of Alcohol and Drug Abuse Patient Records regulations: The Federal rules restrict any use of the information to criminally investigate or prosecute any alcohol or drug abuse patient.[facility] HospitalIn the event this information is protected by the Federal Confidentiality of Alcohol and Drug Abuse Patient Records regulations: The Federal rules restrict any use of the information to criminally investigate or prosecute any alcohol or drug abuse patient.[facility] HospitalIn the event this information is protected by the Federal Confidentiality of Alcohol and Drug Abuse Patient Records regulations: The Federal rules restrict any use of the information to criminally investigate or prosecute any alcohol or drug abuse patient.[facility] HospitalIn the event this information is protected by the Federal Confidentiality of Alcohol and Drug Abuse Patient Records regulations: The Federal rules restrict any use of the information to criminally investigate or prosecute any alcohol or drug abuse patient.[facility] HospitalIn the event this information is protected by the Federal Confidentiality of Alcohol and Drug Abuse Patient Records regulations: The Federal rules restrict any use of the information to criminally investigate or prosecute any alcohol or drug abuse patient.[facility] HospitalIn the event this information is protected by the Federal Confidentiality of Alcohol and Drug Abuse Patient Records regulations: The Federal rules restrict any use of the information to criminally investigate or prosecute any alcohol or drug abuse patient.[facility] HospitalIn the event this information is protected by the Federal Confidentiality of Alcohol and Drug Abuse Patient Records regulations: The Federal rules restrict any use of the information to criminally investigate or prosecute any alcohol or drug abuse patient.[facility] HospitalIn the event this information is protected by the Federal Confidentiality of Alcohol and Drug Abuse Patient Records regulations: The Federal rules restrict any use of the information to criminally investigate or prosecute any alcohol or drug abuse patient.[facility] HospitalIn the event this information is protected by the Federal Confidentiality of Alcohol and Drug Abuse Patient Records regulations: The Federal rules restrict any use of the information to criminally investigate or prosecute any alcohol or drug abuse patient.[facility] HospitalIn the event this information is protected by the Federal Confidentiality of Alcohol and Drug Abuse Patient Records regulations: The Federal rules restrict any use of the information to criminally investigate or prosecute any alcohol or drug abuse patient.[facility] HospitalIn the event this information is protected by the Federal Confidentiality of Alcohol and Drug Abuse Patient Records regulations: The Federal rules restrict any use of the information to criminally investigate or prosecute any alcohol or drug abuse patient.[facility] Reason for Visit (unrecogniz ed section and content) Reason Comments Results Reason Comments Derm Problem redness, itching and burning on face increased x 6 days Reason Comments Future Appointment Reason Onset Date Comments Refill Request 08/18/2021 Refill Request 08/31/2021 Reason Comments 4 month follow up Reason Comments Results Reason Comments Scheduled in error Reason Comments Consult Specialty Diagnoses / Procedures Referred By Contac t Referred To Contact Cardiology Diagnoses Chest pain, unspecified type Abnormal stress ECG with treadmill Procedures CONSULT TO CARDIOLOGY OFFICE/OUTPATIENT NEW HIGH MDM 60-74 MINUTES Arturo Amaya MD [address] [place] [address] Referral ID Status Reason Start Date Expiration Date Visits Requested Visits Authorized [id number] Pending Review PCP Requested Referral 06/20/2021 06/20/2022 1 1 Reason Comments Preparations For Procedures Reason Onset Date Comments Refill Request 10/27/2021 Reason Comments Urinary Problem burning with urinati on, musical sensation in ears, had heart cath done on , symptoms started night Reason Comments Headache Reason Comments Radiology CT Specialty Diagnoses / Procedures Referred By Jayden t Referred To Contact CT IMAGING Diagnoses Headache, new daily persistent ([facility]) Tinnitus of both ears Hypoglycemia Procedures CT BRAIN WO IVCON CT HEAD/BRAIN W/O CONTRAST MATERIAL Sharona Bettencourt PA-C [address] [place] [address] Ct Imaging Referral ID Status Reason Start Date Expiration Date V isits Requested Visits Authorized [id number] Closed Auto-Generate d Referral 11/22/2021 12/22/2022 1 1 Reason Comments Results Orders Reason Comments Follow Up Reason Comments Patient Update Reason Comments Blood Pressure Check Reason Comments Blood Pressure Reason Comments F/U 6 months Reason Comments Medication Question Reason Comments Recheck Patient is here for follow up cellulitis Reason Onset Date Comments Refill Request 04/04/2022 Reason Comments Medicare Wellness Exam Reason Comments Results EMG results Reason Onset Date Comments Refill Request 06/05/2022 Reason Comments Schedule Surgery Reason Comments Patient Update Medication Problem Reason Comments leg sore Vaginal Problem Reason Onset Date Comments Refill Request 09/21/2022 Reason Comments Abdominal Pain Stomach cramps, poss ible constipation x1 day Reason Comments Post Op 1 week 4 days post op Right CTR Reason Comments Medication Problem Reason Comments outside imaging Reason Comments ER F/U Reason Comments right leg infection Fell 2 weeks ago Reason Comments external results [facility] ER report and CT Reason Onset Date Comments Allied Health Visit 02/08/2023 DM Medicatio n Adherence Reason Onset Date Comments Allied Health Visit 02/28/2023 Medication A dherence Outreach Reason Onset Date Comments Allied Health Visit 02/02/2023 Medication A dherence Outreach Reason Onset Date Comments Allied Health Visit 07/09/2023 DM Med Adher ence Reason Onset Date Comments Allied Health Visit 07/12/2023 Medication A dherence Outreach Reason Onset Date Comments Allied Health Visit 07/05/2023 Medication A dherence Outreach Reason Comments Wound Infection X2mths no meds and w ounds on both legs. Reason Onset Date Comments Transition Of Care 08/15/2023 Reason Comments Hospital F/U Reason Onset Date Comments Allied Health Visit 08/22/2023 Diabetes Med ication Adherence Reason Onset Date Comments Allied Health Visit 08/21/2023 Medication A dherence Outreach Reason Onset Date Comments Population Health Navigation Outreach 10/16/2023 [facility] Med Adherence Reason Comments Edema Bilateral lower legs , R worse x3 days Reason Onset Date Comments Allied Health Visit 11/19/2023 Medication A dherence Outreach Reason Comments Dental Problem L upper tooth infect ion x4 days, MENDEZ Reason Onset Date Comments ACM [facility] RN 01/18/2024 ER outreach f ollow up Reason Onset Date Comments Allied Health Visit 02/04/2024 Medication A dherence Outreach Reason Onset Date Comments Refill Request 02/19/2024 Reason Comments Vaginal Problem Redness,discharge, i tchy, x 1 weekFrequency with urination, urgency x 1 weekIncontinent Reason Comments Medicare Wellness Exam Reason Comments Results Reason Comments Radiology US Specialty Diagnoses / Procedures Referred By Contac t Referred To Contact [facility] Diagnoses Elevated alkaline phosphatase level Elevated LFTs Procedures US ABD RIGHT UPPER QUADRANT US ABDOMINAL REAL TIME W/IMAGE LIMITED Sharona Bettencourt PA-C [address] [id number] [place] [address] Referral ID Status Reason Start Date Expiration Date V isits Requested Visits Authorized [id number] Closed Auto-Generate d Referral 04/17/2024 05/17/2025 1 1 Reason Comments ER F/U [facility] Reason Comments Recheck Blood pressure Specialty Diagnoses / Procedures Referred By Contac t Referred To Contact [facility] Diagnoses Multiple thyroid nodules Procedures US THYROID/PARATHYROID US SOFT TISSUE HEAD & NECK REAL TIME IMGE Sharona Jordan PA-C [address] [place] [address] Phone: tel: fax: [place] [phone] Referral ID Status Reason Start Date Expiration Date V isits Requested Visits Authorized [id number] Closed Auto-Generate d Referral 04/15/2024 05/15/2025 1 1 Reason Onset Date Comments Results 05/26/2024 bone density Reason Comments New Diabetic Foot Care Ingrown Toenail Specialty Diagnoses / [facility] Diagnoses Uncontrolled type 2 diabetes mellitus with hyperglycemia (HCC) Ingrown toenail Procedures CONSULT TO PODIATRY OFFICE/OUTPATIENT [facility] MDM 60 MINUTES Sharona Bettencourt PA-C [address] [place] [address] Phone: tel: fax: Referral ID Status Reason Start Date Expiration Date V isits Requested Visits Authorized [id number] Closed PCP Requested Referral 05/14/2024 05/14/2025 1 1 Reason Comments type 2 diabetes Specialty Diagnoses / Procedures Referred By Contac t Referred To Contact Endocrinology Diagnoses Uncontrolled type 2 diabetes mellitus with hyperglycemia (HCC) Procedures CONSULT TO ENDOCRINOLOGY OFFICE/OUTPATIENT [facility] MDM 60 MINUTES Sharona Bettencourt PA-C [address] [place] [address] Phone: tel: fax: Referral ID Status Reason Start Date Expiration Date V isits Requested Visits Authorized [id number] Closed PCP Requested Referral 04/17/2024 04/17/2025 1 1 Reason Comments FYI-No Action Needed Reason Comments Radiology [place] Reason Onset Date Comments Results 07/04/2024 Reason Onset Date Comments Refill Request 08/07/2024 Reason Comments Diabetic Foot Care Established Patient Follow Up Numbness Reason Comments Follow Up Blood pressure Reason Comments Medication Request Reason Comments Depression Anxiety Reason Comments Follow Up medication Reason Comments Abstract Cardiology OV note - [facility] Care Teams (unrecognized sec tion and content) Linoleum Printer Relationship Specialty Start Date End Date Arturo Amaya MD [address] [place], [place] [id number] PCP - General Family Practice 07/21/14 Linoleum Printer Relationship Specialty Start Date End Date Arturo Amaya MD [address] [place], [place] [id number] PCP - General Family Practice 07/21/14 Linoleum Printer Relationship Specialty Start Date End Date Arturo Amaya MD [address] [place], [place] [id number] [phone] PCP - General Family Practice 07/21/14 Linoleum Printer Relationship Specialty Start Date End Date Arturo Amaya MD [address] [facility] [place] [address] PCP - General Family Practice 07/21/14 Linoleum Printer Relationship Specialty Start Date End Date Arturo Amaya MD [facility] [place] [address] PCP - General Family Practice 07/21/14 Linoleum Printer Relationship Specialty Start Date End Date Arturo Amaya MD [address] [place] [address], [place] [address] PCP - General Family Practice 07/21/14 Linoleum Printer Relationship Specialty Start Date End Date Arturo Amaya MD [address] [place] [address], [place] [address] PCP - General Family Practice 07/21/14 Linoleum Printer Relationship Specialty Start Date End Date Arturo Amaya MD [address] [place] [address] PCP - General Family Practice 07/21/14 Linoleum Printer Relationship Specialty Start Date End Date Arturo Amaya MD [address] [place] [address] [place] [address] PCP - General Family Practice 07/21/14 Linoleum Printer Relationship Specialty Start Date End Date Arturo Amaya MD [address] [place] [address] [place] [address] PCP - General Family Practice 07/21/14 Linoleum Printer Relationship Specialty Start Date End Date Arturo Amaya MD [address] [place] [address] [place] [address] PCP - General Family Practice 07/21/14 Linoleum Printer Relationship Specialty Start Date End Date Arturo Amaya MD [address] [place] [address] [place] [address] PCP - General Family Practice 07/21/14 Linoleum Printer Relationship Specialty Start Date End Date Arturo Amaya MD [address] [facility] [place] [address] PCP - General Family Medicine 07/21/14 Linoleum Printer Relationship Specialty Start Date End Date Arturo Amaya MD [address] [facility] [place] [address] PCP - General Family Medicine 07/21/14 Linoleum Printer Relationship Specialty Start Date End Date Arturo Amaya MD [facility] [place] [address] PCP - General Family Medicine 07/21/14 Linoleum Printer Relationship Specialty Start Date End Date Arturo Amaya MD [address] [place] [address], [place] [address] PCP - General Family Medicine 07/21/14 Linoleum Printer Relationship Specialty Start Date End Date Arturo Amaya MD [facility] [place] [address] PCP - General Family Medicine 07/21/14 Linoleum Printer Relationship Specialty Start Date End Date Arturo Amaya MD [facility] [place] [address] PCP - General Family Medicine 07/21/14 Linoleum Printer Relationship Specialty Start Date End Date Arturo Amaya MD [facility] [place] [address] PCP - General Family Medicine 07/21/14 Linoleum Printer Relationship Specialty Start Date End Date Arturo Amaya MD [facility] [place] [address] PCP - General Family Medicine 07/21/14 Linoleum Printer Relationship Specialty Start Date End Date Arturo Amaya MD [facility] [place] [address] PCP - General Family Medicine 07/21/14 Linoleum Printer Relationship Specialty Start Date End Date Arturo Amaya MD [address] [place] [address] PCP - General Family Medicine 07/21/14 Team Status: Active Member Role Status Dates Dr. Arturo Amaya MD Family Provider Active Dr. Arturo Amaya MD Primary Care Provider Active Team Status: Active Member Role Status Dates Dr. Arturo Amaya MD Primary Care Pro vider, Referring Provider, Other Provider Active Dr. Juan Shankar DO Attending Provider Active Team Status: Inactive Member Role Status Dates Dr. Arturo Amaya MD Primary Care Provider, Attendi Provider Active Linoleum Printer Relationship Specialty Start Date End Date Arturo Amaya MD [facility] [place] [address] PCP - General Family Medicine 07/21/14 Linoleum Printer Relationship Specialty Start Date End Date Arturo Amaya MD [address] [place] [address] PCP - General Family Medicine 07/21/14 Linoleum Printer Relationship Specialty Start Date End Date Arturo Amaya MD [facility] [place] [address] PCP - General Family Medicine 07/21/14 Linoleum Printer Relationship Specialty Start Date End Date Arturo Amaya MD [facility] [place] [address] PCP - General Family Medicine 07/21/14 Linoleum Printer Relationship Specialty Start Date End Date Arturo Amaya MD [address] [place] [address] PCP - General Family Medicine 07/21/14 Linoleum Printer Relationship Specialty Start Date End Date Arturo Amaya MD [address] [place] [address] PCP - General Family Medicine 07/21/14 Linoleum Printer Relationship Specialty Start Date End Date Artruo Amaya MD [address] [place] [address] PCP - General Family Medicine 07/21/14 Team Status: Inactive Member Role Status Dates Dr. Arturo Amaya MD Primary Care Provider Active Dr. Eliezer Iglesias MD Attending Provider Active Sharona ACHARYA, PA Referring Provider Active Team Status: Inactive Member Role Status Dates Dr. Arturo Amaya MD Primary Care Provider Active Dr. Danny Bhardwaj , Emergency Provider Active Linoleum Printer Relationship Specialty Start Date End Date Arturo Amaya MD [address] [place] [address] PCP - General Family Medicine 07/21/14 Linoleum Printer Relationship Specialty Start Date End Date Arturo Amaya MD [address] [place] [address] PCP - General Family Medicine 07/21/14 Team Status: Inactive Member Role Status Dates Dr. Arturo Amaya MD Primary Care Provider Active Dr. Danny Bhardwaj DO Attending Provider, Emergency Pr ovider Active Team Status: Inactive Member Role Status Dates Dr. Arturo Amaya MD Primary Care Provider Active Dr. Evon Wilson DO Emergency Provider Active Linoleum Printer Relationship Specialty Start Date End Date Arturo Amaya MD [address] [place] [address] PCP - General Family Medicine 07/21/14 Linoleum Printer Relationship Specialty Start Date End Date Arturo Amaya MD [address] [place] [address] PCP - General Family Medicine 07/21/14 Linoleum Printer Relationship Specialty Start Date End Date Arturo Amaya MD [address] [place] [address] PCP - General Family Medicine 07/21/14 Team Status: Active Member Role Status Dates Dr. Arturo Amaya MD Primary Care Provider Active Dr. Enzo Nunes , Emergency Provider Active Dr. Guru Bautista , DO Admit Provider, Attending Provider Active Linoleum Printer Relationship Specialty Start Date End Date Arturo Amaya MD [address] [place] [address] PCP - General Family Medicine 07/21/14 Linoleum Printer Relationship Specialty Start Date End Date Arturo Amaya MD [address] [place] [address] PCP - General Family Medicine 07/21/14 Linoleum Printer Relationship Specialty Start Date End Date Arturo Amaya MD [address] [place] [address] PCP - General Family Medicine 07/21/14 Linoleum Printer Relationship Specialty Start Date End Date Arturo Amaya MD [address] [place] [address] PCP - General Family Medicine 07/21/14 Linoleum Printer Relationship Specialty Start Date End Date Arturo Amaya MD [address] [place] [address] PCP - General Family Medicine 07/21/14 Linoleum Printer Relationship Specialty Start Date End Date Arturo Amaya MD [address] [place] [address] PCP - General Family Medicine 07/21/14 Linoleum Printer Relationship Specialty Start Date End Date Arturo Amaya MD [address] [place] [address] PCP - General Family Medicine 07/21/14 Linoleum Printer Relationship Specialty Start Date End Date Arturo Amaya MD [address] [place] [address] PCP - General Family Medicine 07/21/14 Linoleum Printer Relationship Specialty Start Date End Date Arturo Amaya MD [address] [place] [address] PCP - General Family Medicine 07/21/14 Rasheed Chin APRN.DIESEL MAINTENANCE TECHNICIAN [address] [place] [address] Guest Service Representative Family Medicine 03/08/24 Sharona Bettencourt PA-C [address] [place] [address] Guest Service Representative Family Medicine 03/08/24 Linoleum Printer Relationship Specialty Start Date End Date Arturo Amaya MD [address] [place] [address] PCP - General Family Medicine 07/21/14 Rasheed Chin, TIMUR.DIESEL MAINTENANCE TECHNICIAN [address] [place] [address] Guest Service Representative Family Medicine 03/08/24 Sharona Bettencourt PA-C [address] [place] [address] Guest Service Representative Family Medicine 03/08/24 Linoleum Printer Relationship Specialty Start Date End Date Arturo Amaya MD [address] [place] [address] PCP - General Family Medicine 07/21/14 Rasheed hCin, DIRECTOR VIDEO.DIESEL MAINTENANCE TECHNICIAN [address] [place] [address] Guest Service Representative Family Medicine 03/08/24 Sharona Bettencourt PA-C [address] [place] [address] Guest Service Representative Family Medicine 03/08/24 Linoleum Printer Relationship Specialty Start Date End Date Arturo Amaya MD [address] [place] [address] PCP - General Family Medicine 07/21/14 Rasheed Chin, DIRECTOR VIDEO.DIESEL MAINTENANCE TECHNICIAN [address] [place] [address] Guest Service Representative Family Medicine 03/08/24 Sharona Bettencourt PA-C [address] [place] [address] Guest Service Representative Family Medicine 03/08/24 Linoleum Printer Relationship Specialty Start Date End Date Arturo Amaya MD [address] [place] [address] PCP - General Family Medicine 07/21/14 Rasheed Chin, DIRECTOR VIDEO.DIESEL MAINTENANCE TECHNICIAN [address] [place] [address] Guest Service Representative Family Medicine 03/08/24 Sharona Bettencourt PA-C [address] [place] [address] Guest Service Representative Family Medicine 03/08/24 Linoleum Printer Relationship Specialty Start Date End Date Arturo Amaya MD [address] [place] [address] PCP - General Family Medicine 07/21/14 Rasheed Chin APRN.DIESEL MAINTENANCE TECHNICIAN [address] [place] [address] Guest Service Representative Family Medicine 03/08/24 Sharona Bettencourt PA-C [address] [place] [address] Guest Service Representative Family Medicine 03/08/24 Linoleum Printer Relationship Specialty Start Date End Date Arturo Amaya MD [address] [place] [address] PCP - General Family Medicine 07/21/14 Rasheed Chin, DIRECTOR VIDEO.DIESEL MAINTENANCE TECHNICIAN [address] [place] [address] Guest Service Representative Family Medicine 03/08/24 Sharona Bettencourt PA-C [address] [place] [address] Guest Service Representative Family Medicine 03/08/24 Linoleum Printer Relationship Specialty Start Date End Date Arturo Amaya MD [address] [place] [address] PCP - General Family Medicine 07/21/14 Rasheed Chni APRN.DIESEL MAINTENANCE TECHNICIAN [address] [place] [address] Guest Service Representative Family Medicine 03/08/24 Sharona Bettencourt PA-C [address] [place] [address] Guest Service Representative Family Medicine 03/08/24 Linoleum Printer Relationship Specialty Start Date End Date Arturo Amaya MD [address] [place] [address] PCP - General Family Medicine 07/21/14 Rasheed Chin, TIMUR.DIESEL MAINTENANCE TECHNICIAN [address] [place] [address] Guest Service Representative Family [facility] 03/08/24 Sharona Bettencourt PA-C [address] [place] [address] [facility] 03/08/24 Linoleum Printer Relationship Specialty Start Date End Date Arturo Amaya MD [address] [place] [address] PCP - General Family Medicine 07/21/14 Rasheed Chin, DIRECTOR VIDEO.DIESEL MAINTENANCE TECHNICIAN [address] [place] [address] [facility] 03/08/24 Sharona Bettencourt PA-C [address] [place] [address] [facility] 03/08/24 Linoleum Printer Relationship Specialty Start Date End Date Arturo Amaya MD [address] [place] [address] PCP - General Family Medicine 07/21/14 Rasheed Chin, DIRECTOR VIDEO.DIESEL MAINTENANCE TECHNICIAN [address] [place] [address] Guest Service Representative Family Medicine 03/08/24 Sharona Bettencourt PA-C [address] [place] [address] Guest Service Representative Family [facility] 03/08/24 Linoleum Printer Relationship Specialty Start Date End Date Arturo Amaya MD [address] [place] [address] PCP - General Family Medicine 07/21/14 Rasheed Chin APRN.DIESEL MAINTENANCE TECHNICIAN [address] [place] [phone] Guest Service Representative Family Medicine 03/08/24 Sharona Bettencourt PA-C [address] [place] [address] Guest Service Representative [facility] 03/08/24 Linoleum Printer Relationship Specialty Start Date End Date Arturo Amaya MD [address] [place] [address] PCP - General Family Medicine 07/21/14 Rasheed Chin APRN.DIESEL MAINTENANCE TECHNICIAN [address] [place] [address] Guest Service Representative Family Medicine 03/08/24 Sharona Bettencourt PA-C [address] [place] [address] Guest Service Representative Family Medicine 03/08/24 Linoleum Printer Relationship Specialty Start Date End Date Arturo Amaya MD [address] [place] [address] PCP - General Family Medicine 07/21/14 Rasheed Chin APRN.DIESEL MAINTENANCE TECHNICIAN [facility] [place] [address] Guest Service Representative Family Medicine 03/08/24 Sharona Bettencourt PA-C [address] [place] [address] [facility] Family [facility] 03/08/24 Linoleum Printer Relationship Specialty Start Date End Date Arturo Amaya MD [address] [place] [address] PCP - General Family Medicine 07/21/14 Rasheed Chin APRN.DIESEL MAINTENANCE TECHNICIAN [address] [place] [address] [facility] Family [facility] 03/08/24 Sharona Bettencourt PA-C [address] [place] [address] [facility] 03/08/24 Linoleum Printer Relationship Specialty Start Date End Date Arturo Amaya MD [address] [place] [address] PCP - General Family Medicine 07/21/14 Rasheed Chin APRN.DIESEL MAINTENANCE TECHNICIAN [address] [place] [address] [facility] Family Medicine 03/08/24 Sharona Bettencourt PA-C [address] [place] [address] [facility] Family Medicine 03/08/24 Linoleum Printer Relationship Specialty Start Date End Date Arturo Amaya MD [address] [place] [address] PCP - General Family Medicine 07/21/14 Rasheed Chin APRN.DIESEL MAINTENANCE TECHNICIAN [address] [place] [phone] [facility] 03/08/24 Sharona Bettencourt PA-C [address] [place] [address] [facility] 03/08/24 Team Status: Active Member Role Status Dates Dr. Arturo Amaya MD Primary Care Provider Active Team Status: Inactive Member Role Status Dates Dr. Arturo Amaya MD Primary Care Provider Active Start: April 22, 2024 End: April 22, 2024 Dr. Fer Choudhury MD Attending Provider Active Start: April 22, 2024 End: April 22, 2024 Dr. Fer Choudhury MD Emergency Provider Active Start: April 22, 2024 End: April 22, 2024 Team Status: Inactive Member Role Status Dates Dr. Arturo Amaya MD Primary Care Provider Active Start: April 30, 2024 End: April 30, 2024 Dr. Arturo Amaya MD Referring Provider Active Start: April 30, 2024 End: April 30, 2024 PATRIZIA Banda Attending Provider Active Start: April 30, 2024 End: April 30, 2024 Team Status: Inactive Member Role Status Dates Dr. Arturo Amaya MD Primary Care Provider Active Start: June 16, 2024 End: June 16, 2024 Dr. Richard Loo DO Emergency Provider Active Start: June 16, 2024 End: June 16, 2024 Linoleum Printer Relationship Specialty Start Date End Date Arturo Amaya MD [address] [place] [address] PCP - General Family Medicine 07/21/14 07/06/24 Arturo Amaya MD [address] [place] [address] PCP - General Family Medicine 07/07/24 Rasheed Chin APRN.DIESEL MAINTENANCE TECHNICIAN [address] [place] [address] Guest Service Representative Family Medicine 03/08/24 Sharona Bettencourt PA-C [address] [place] [address] Guest Service Representative Family Medicine 03/08/24 Linoleum Printer Relationship Specialty Start Date End Date Arturo Amaya MD [address] [place] [address] PCP - General Family Medicine 07/21/14 07/06/24 Arturo Amaya MD [address] [place] [address] PCP - General Family Medicine 07/07/24 Rasheed Chin APRN.DIESEL MAINTENANCE TECHNICIAN [address] [place] [address] Guest Service Representative Family Medicine 03/08/24 Sharona Bettencourt PA-C [address] [place] [address] Guest Service Representative Family Medicine 03/08/24 Linoleum Printer Relationship Specialty Start Date End Date Arturo Amaya MD [address] [place] [address] PCP - General Family Medicine 07/07/24 Rasheed Chin APRN.DIESEL MAINTENANCE TECHNICIAN [address] [place] [address] Guest Service Representative Family Medicine 03/08/24 Sharona Bettencourt PA-C [address] [place] [address] Guest Service Representative Family Medicine 03/08/24 Linoleum Printer Relationship Specialty Start Date End Date Arturo Amaya MD [address] [place] [address] PCP - General Family Medicine 07/07/24 Rasheed Chin, TIMUR.DIESEL MAINTENANCE TECHNICIAN [address] [place] [address] Guest Service Representative Family Medicine 03/08/24 Sharona Bettencourt PA-C [address] [place] [address] [facility] 03/08/24 Linoleum Printer Relationship Specialty Start Date End Date Arturo Amaya MD [address] [place] [address] PCP - General Family Medicine 07/07/24 Rasheed Chin, DIRECTOR VIDEO.DIESEL MAINTENANCE TECHNICIAN [facility] [place] [address] Guest Service Representative Family Medicine 03/08/24 Sharona Bettencourt PA-C [address] [place] [address] Guest Service Representative Family Medicine 03/08/24 Linoleum Printer Relationship Specialty Start Date End Date Arturo Amaya MD [address] [place] [address] PCP - General Family Medicine 07/07/24 Rasheed Chin, DIRECTOR VIDEO.DIESEL MAINTENANCE TECHNICIAN [address] [place] [address] Guest Service Representative Family Medicine 09/01/24 Sharona Bettencourt PA-C [address] [place] [address] Guest Service Representative Family Medicine 09/01/24 Linoleum Printer Relationship Specialty Start Date End Date Arturo Amaya MD [address] [place] [address] PCP - General Family Medicine 07/07/24 Rasheed Chin, DIRECTOR VIDEO.DIESEL MAINTENANCE TECHNICIAN [address] [place] [address] Guest Service Representative Family Medicine 03/08/24 08/17/24 Sharona Bettencourt PA-C [address] [place] [address] Guest Service Representative Family Medicine 03/08/24 08/31/24 Rasheed Chin, DIRECTOR VIDEO.DIESEL MAINTENANCE TECHNICIAN [address] [place] [address] Guest Service Representative Family Medicine 09/01/24 Sharona Bettencourt PA-C [address] [place] [address] Guest Service Representative Family Medicine 09/01/24 Linoleum Printer Relationship Specialty Start Date End Date Arturo Amaya MD [address] [place] [address] PCP - General Family Medicine 07/07/24 Rasheed Chin, DIRECTOR VIDEO.DIESEL MAINTENANCE TECHNICIAN [address] [place] [address] Guest Service Representative Family Medicine 09/01/24 Sharona Bettencourt PA-C [address] [place] [address] Guest Service Representative Family Medicine 09/01/24 Linoleum Printer Relationship Specialty Start Date End Date Arturo Amaya MD [address] [place] [address] PCP - General Family Medicine 07/07/24 Rasheed Chin, TIMUR.DIESEL MAINTENANCE TECHNICIAN [address] [place] [address] Guest Service Representative Family Medicine 09/01/24 Sharona Bettencourt PA-C [address] [place] [address] Guest Service Representative Family Medicine 09/01/24 Linoleum Printer Relationship Specialty Start Date End Date Arturo Amaya MD [address] [place] [address] PCP - General Family Medicine 07/07/24 Rasheed Chin APRN.DIESEL MAINTENANCE TECHNICIAN [address] [place] [address] Guest Service Representative Family Medicine 09/01/24 Sharona Bettencourt PA-C [address] [place] [address] Guest Service Representative Family Medicine 09/01/24 Linoleum Printer Relationship Specialty Start Date End Date Arturo Amaya MD [address] [place] [address] PCP - General Family Medicine 07/07/24 Rasheed Chin, TIMUR.DIESEL MAINTENANCE TECHNICIAN [address] [place] [address] Guest Service Representative Family Medicine 09/01/24 Sharona Bettencourt PA-C [address] [place] [address] Guest Service Representative Family Medicine 09/01/24 Linoleum Printer Relationship Specialty Start Date End Date Arturo Amaya MD [address] [place] [address] PCP - General Family Medicine 07/07/24 Rasheed Chin, DIRECTOR VIDEO.DIESEL MAINTENANCE TECHNICIAN [address] [place] [address] Guest Service Representative Family Medicine 09/01/24 Sharona Bettencourt PA-C [address] [place] [address] Guest Service Representative Family Medicine 09/01/24 Linoleum Printer Relationship Specialty Start Date End Date Arturo Amaya MD [address] [place] [address] PCP - General Family Medicine 07/07/24 Rasheed Chin, DIRECTOR VIDEO.DIESEL MAINTENANCE TECHNICIAN [facility] [place] [address] Guest Service Representative Family Medicine 09/01/24 Sharona Bettencourt PA-C [address] [place] [address] Guest Service Representative Family Medicine 09/01/24 Team Status: Active Member Role/Relationship Status Dates Dr. Arturo Amaya MD Primary Care Provider Active Team Status: Inactive Member Role/Relationship Status Dates Dr. Arturo Amaya MD Primary Care Provider Active Start: August 21, 2024 End: August 21, 2024 Dr. Evon Wilson DO Attending Provider Active S tart: August 21, 2024 End: August 21, 2024 Dr. Evon Wilson , Emergency Provider Active S tart: August 21, 2024 End: August 21, 2024 Team Status: Inactive Member Role/Relationship Status Dates Dr. Arturo Amaya MD Primary Care Provider Active Start: October 29, 2024 End: October 29, 2024 Dr. Arturo Amaya MD Referring Provider Active Start: October 29, 2024 End: October 29, 2024 Dr. Luigi [place] MD Attending Provider Active S tart: October 29, 2024 End: October 29, 2024 Linoleum Printer Relationship Specialty Start Date End Date Arturo Amaya MD [address] [place] [address] PCP - General Family Medicine 07/07/24 Rasheed Chin APRN.[facility] [address] [place], [place] [id number] [facility] 09/01/24 Sharona Bettencourt PA-C [address] [place], [place] [id number] [facility] 09/01/24 Goals (unrecognized section and content) Goals may be documented in a n alternate sectionGoals may be documented in an alternate sectionGoals may be documented in an alternate sectionGoals may be documented in an alternate sectionGoals may be documented in an alternate sectionGoals may be documented in an alternate sectionGoals may be documented in an alternate sectionGoals may be documented in an alternate section FOR RECORDS PERTAINING TO PATIENTS WHO ARE OR HAVE BEEN ENROLLED IN A CHEMICAL DEPENDENCY/SUBSTANCEABUSE PROGRAM, SOME INFORMATION MAY BE OMITTED. This clinical summary was aggregated from multiple sources. Caution should be exercised in using it in the provision of clinical care. This summary normalizes information from multiple sources, and as a consequence, information in this document may materially change the coding, format and clinical context of patient data. In addition, data may be omitted in some cases. CLINICAL DECISIONS SHOULD BE BASED ON THE PRIMARY CLINICAL RECORDS. [facility]. provides no warranty or guarantee of the accuracy or completeness of information in this document.
== END | disposition home or self-care (01) ==
LOC: CVS 10:16
PROVIDERS: PCP Family Medicine; Referring Provider Internal Medicine Cardiovascular Disease; Visit Provider Internal Medicine Cardiovascular Disease
DX: I35.0 Nonrheumatic aortic (valve) stenosis (principal); R06.02 Shortness of breath
CPT/HCPCS: 93306

== ENCOUNTER 2024-12-30 10:08 | Outpatient (RCR) | payer MEDICARE, SELFPAY ==
[2024-12-30 10:23] VITALS: BP 168/78; PULSE 101; RESP 18; TEMP 36.1; BMI 38.5
--- NOTE | 2024-12-31 15:09 | WC ---
PHOTO-LEFT LEG 12/30/24
--- NOTE | 2024-12-31 15:12 | WC ---
PHOTO-RIGHT LEG 12/30/24
--- NOTE | 2025-01-01 19:20 | PCM.WC.HP ---
History of Present Illness Date of Service: 12/30/24 Chief Complaint: Swelling, edema, and venous stasis dermatitis of the lower extremities bilaterally History of Wound: This is an 84-year-old female with multiple pre-existing medical conditions, who presents with chronic swelling and edema in her lower extremities, associated with venous stasis dermatitis in the lower extremities bilaterally. In the recent past, her legs were described as seeping. She has recently been treated by her primary care physician with 3 courses of antibiotics, which included Duricef 500 mg twice daily for a week, as well as cephalexin. She has been using A&D ointment topically. The patient has been treated in the [facility] in the past for similar symptoms and manifestations, as recently as October 2022. She has been previously prescribed graduated compression stockings of 20 to 30 mmHg compression, though compliance appears to have lapsed. The patient's primary care physician has prescribed Lasix in an effort to decrease her lower extremity swelling and edema. The patient sleeps in a recliner. She lives alone. She is known to be diabetic. The last documented hemoglobin A1c of 12.3 was from August 2023. The patient denies a history of thrombophlebitis. FOR[facility]LY [facility] Medical History Lipodermatosclerosis Venous hypertension, chronic, with inflammation Edema of both legs Localized swelling of both lower legs Vitamin D deficiency Schatzki's ring Multiple thyroid nodules Diastolic congestive heart failure Bilateral carpal tunnel syndrome Anxiety and depression Difficulty swallowing IBS (irritable bowel syndrome) Nonadherence to medication Diabetes mellitus, type 2 Chest pain Obesity (BMI 35.0-39.9 without comorbidity) Edema of right lower extremity due to peripheral venous insufficiency Edema of left lower extremity due to peripheral venous insufficiency Venous stasis dermatitis Atrial fibrillation Overactive bladder Esophageal stricture Hearing deficit Tinnitus History of basal cell cancer Diaphragmatic hernia Diabetic neuropathy Aortic stenosis Hyperlipidemia Chronic venous insufficiency Osteoporosis Thrombocytopenia Metabolic acidosis Hypokalemia Gastroenteritis Acute kidney injury Hiatal hernia Dyslipidemia HTN (hypertension) GERD (gastroesophageal reflux disease) Esophageal spasm Home Medications ?Medication ?Instructions ?Recorded ?Last Taken ?Type metformin 500 mg tablet 500 mg PO UD diabetes 07/05/17 08/20/24 History hydrochlorothiazide 25 mg tablet 25 mg PO DAILY diuretic 04/01/18 07/29/23 05:00 History nitroglycerin 0.4 mg sublingual 0.4 mg sublingual Q5M 10/10/22 Unknown History tablet (Nitrostat) sitagliptin phosphate 100 mg 100 mg PO DAILY blood sugar 10/10/22 07/29/23 History tablet (Januvia) lisinopril 40 mg tablet 40 mg PO BID 04/22/24 08/20/24 History meclizine 25 mg chewable tablet 25 mg PO TID PRN dizziness #10 tabs 08/21/24 Unknown Rx (Antivert) Held on 12/30/24. Instructions: not taking anymore per patient alendronate 70 mg tablet 70 mg PO .weekly 10/10/24 Unknown History cholecalciferol (vitamin D3) 50 150 mcg PO QDAY 10/10/24 Unknown History mcg (2,000 unit) capsule furosemide 40 mg tablet 40 mg PO DAILY PRN PRN edema 10/10/24 Unknown History glimepiride 4 mg tablet 4 mg PO QPM 10/10/24 Unknown History acetaminophen 500 mg tablet 500 mg PO Q6H PRN pain 10/29/24 Unknown History (Tylenol Extra Strength) buspirone 5 mg tablet 5 mg PO BID 10/29/24 Unknown History carvedilol 12.5 mg tablet 12.5 mg PO BID #180 tabs 10/29/24 Unknown Rx sertraline 50 mg tablet 50 mg PO QDAY 10/29/24 Unknown History Allergy/AdvReac Type Severity Reaction Status Date / Time codeine Allergy Intermediate Rash Verified 12/30/24 12:23 niacin Allergy Intermediate Rash Verified 12/30/24 12:23 Penicillins Allergy Intermediate Rash Verified 12/30/24 12:23 pioglitazone Allergy Intermediate leg edema Verified 12/30/24 12:23 & CHF prednisone Allergy Intermediate Rash Verified 12/30/24 12:23 acetaminophen (From Vicodin) Allergy Other Verified 10/29/24 11:27 celecoxib (From Celebrex) Allergy Unknown Verified 12/30/24 12:23 hydrocodone (From Vicodin) Allergy Other Verified 10/29/24 11:27 morphine Allergy Other Verified 10/29/24 11:27 Sulfa (Sulfonamide Allergy Rash Verified 12/30/24 12:23 Antibiotics) Family History Mother Asthma Heart disease Father Heart disease Hypertension Arthritis Alzheimer dementia Grandmother Hypertension CVA (cerebral vascular accident) Grandfather CVA (cerebral vascular accident) Brother Hypertension Diabetes Surgical History history ORIF left wrist History of esophageal dilatation History of tonsillectomy History of nasal surgery History of surgery on left wrist History of cholecystectomy History repair broken nose History of laparoscopic cholecystectomy Social History Smoking Status: Never smoker alcohol intake: never substance use type: does not use Vital Signs Vital Signs Vital Signs: Weight Weight: 239 lb Body Mass Index (BMI) 38.5 Physical Exam Const alert, oriented x3, no apparent distress and no limitations Constitutional Narrative: The patient is obese. Her BMI is 38.6. General Appearance: cooperative, comfortable and well developed Orientation / Consciousness: awake, oriented to person, oriented to place and oriented to time Exam Limitations: no limitations HEENT normocephalic and head/scalp atraumatic Head and Scalp: normal to inspection, normocephalic and atraumatic Nose: external nose normal External Ear: external ears normal Eyes EOMs intact bilaterally General Eye: normal appearance of both eyes Resp normal respiratory effort, normal air movement, no retractions and no use of accessory muscles Effort and Inspection: able to speak in complete sentences Extremity no calf tenderness General Extremity: Negative for clubbing or cyanosis Skin Wound Narrative: Moderate swelling and edema are noted in the patient's lower extremities bilaterally. Venous stasis dermatitis is noted in the gaiter areas bilaterally, with an inflammatory erythema and a cobblestone appearance of the skin consistent with lipodermatosclerosis. There are no open wounds or ulcerations. The erythema appears to be inflammatory, rather than cellulitic. Circumference measurements are as documented elsewhere. Neuro oriented x3, CN's II-XII intact bilaterally, moves all extremities and no focal motor deficits Sensorium / Orientation: awake and alert Speech: speech normal Psych Appearance: grossly normal and appropriate Attitude: calm Activity / Motor Behavior: appropriate eye contact Speech: normal speech Mood & Affect: euthymic mood Attention / Concentration: attention grossly intact Debridement Note Debridement Note No debridement was completed: No debridement was completed today Charges/Coding Visit Charges Office Visits / Consults: [id number] OV L4 Est 30min Assessment/Plan Assessment/Plan (1) Venous stasis dermatitis: CODE(S): I87.2 - Venous insufficiency (chronic) (peripheral) (2) Chronic venous insufficiency: CODE(S): I87.2 - Venous insufficiency (chronic) (peripheral) (3) Venous hypertension, chronic, with inflammation: CODE(S): I87.329 - Chronic venous hypertension (idiopathic) with inflammation of unspecified lower extremity QUALIFIERS: Laterality: bilateral Qualified Code(s): I87.323 - Chronic venous hypertension (idiopathic) with inflammation of bilateral lower extremity (4) Localized swelling of both lower legs: CODE(S): R22.43 - Localized swelling, mass and lump, lower limb, bilateral (5) Edema of both legs: CODE(S): R60.0 - Localized edema (6) Lipodermatosclerosis: CODE(S): M79.3 - Panniculitis, unspecified (7) Edema of right lower extremity due to peripheral venous insufficiency: CODE(S): I87.2 - Venous insufficiency (chronic) (peripheral) (8) Edema of left lower extremity due to peripheral venous insufficiency: CODE(S): I87.2 - Venous insufficiency (chronic) (peripheral) (9) Diabetes mellitus, type 2: CODE(S): E11.9 - Type 2 diabetes mellitus without complications (10) Obesity (BMI 35.0-39.9 without comorbidity): CODE(S): E66.9 - Obesity, unspecified (11) Schatzki's ring: CODE(S): K22.2 - Esophageal obstruction (12) Diastolic congestive heart failure: CODE(S): I50.30 - Unspecified diastolic (congestive) heart failure (13) Bilateral carpal tunnel syndrome: CODE(S): G56.03 - Carpal tunnel syndrome, bilateral upper limbs (14) Osteoporosis: CODE(S): M81.0 - Age-related osteoporosis without current pathological fracture (15) Difficulty swallowing: CODE(S): R13.10 - Dysphagia, unspecified (16) IBS (irritable bowel syndrome): CODE(S): K58.9 - Irritable bowel syndrome, unspecified (17) Nonadherence to medication: CODE(S): Z91.148 - Patient's other noncompliance with medication regimen for other reason (18) History of esophageal dilatation: CODE(S): Z98.890 - Other specified postprocedural states (19) History of tonsillectomy: CODE(S): Z90.89 - Acquired absence of other organs (20) History of nasal surgery: CODE(S): Z98.890 - Other specified postprocedural states (21) History of surgery on left wrist: CODE(S): Z98.890 - Other specified postprocedural states (22) History of cholecystectomy: CODE(S): Z90.49 - Acquired absence of other specified parts of digestive tract (23) Atrial fibrillation: CODE(S): I48.91 - Unspecified atrial fibrillation (24) Hearing deficit: CODE(S): H91.90 - Unspecified hearing loss, unspecified ear (25) Esophageal stricture: CODE(S): K22.2 - Esophageal obstruction (26) History of basal cell cancer: CODE(S): Z85.828 - Personal history of other malignant neoplasm of skin (27) Diaphragmatic hernia: CODE(S): K44.9 - Diaphragmatic hernia without obstruction or gangrene (28) Diabetic neuropathy: CODE(S): E11.40 - Type 2 diabetes mellitus with diabetic neuropathy, unspecified (29) Aortic stenosis: CODE(S): I35.0 - Nonrheumatic aortic (valve) stenosis (30) Hyperlipidemia: CODE(S): E78.5 - Hyperlipidemia, unspecified (31) GERD (gastroesophageal reflux disease): CODE(S): K21.9 - Gastro-esophageal reflux disease without esophagitis QUALIFIERS: Esophagitis presence: esophagitis presence not specified Qualified Code(s): K21.9 - Gastro-esophageal reflux disease without esophagitis (32) HTN (hypertension): CODE(S): I10 - Essential (primary) hypertension QUALIFIERS: Hypertension type: unspecified secondary hypertension Qualified Code(s): I15.9 - Secondary hypertension, unspecified; I15 - Secondary hypertension (33) Dyslipidemia: CODE(S): E78.5 - Hyperlipidemia, unspecified (34) Hiatal hernia: CODE(S): K44.9 - Diaphragmatic hernia without obstruction or gangrene PLAN: Plan This is an 84-year-old female who presented with symptoms of chronic venous insufficiency, venous hypertension with inflammation, and venous stasis dermatitis in her lower extremities bilaterally. At present, there are no open ulcerations. The patient has been previously treated at the [facility] for similar symptoms and manifestations. It appears as though the patient has recently been noncompliant with recommended conservative treatment measures. The patient has now been counseled to elevate her lower extremities as much as possible. She has been encouraged to sleep on a flat surface at night. She has also been advised to elevate her lower extremities is much as possible during daytime hours. Leg elevation is to be to heart level, or higher. Prolonged idle sitting has been discouraged. Activity/ambulation has been encouraged, though significant enhancement of the patient's activity level is unlikely, given her defunctionalized state. We are to implement the use of Unna compression wraps bilaterally, which are to be changed twice weekly. The patient is to return in 1 week for reevaluation. Total time: 38 minutes
== END 2024-12-30 23:59 | disposition home or self-care (01) ==
LOC: WC 10:08
PROVIDERS: PCP Family Medicine; Referring Provider Family Medicine; Visit Provider Surgery
DX: I87.323 Chronic venous hypertension (idiopathic) with inflammation of bilateral lower extremity (principal); E11.51 Type 2 diabetes mellitus with diabetic peripheral angiopathy without gangrene; R60.0 Localized edema
CPT/HCPCS: 29580; 99213; G0463

== ENCOUNTER 2025-01-16 13:00 | Outpatient (RCR) | payer MEDICARE, SELFPAY ==
[2025-01-02 10:28] VITALS: BP 170/94; PULSE 86; RESP 18; TEMP 36
[2025-01-06 10:18] VITALS: BP 150/68; PULSE 80; RESP 18; TEMP 36.6
--- NOTE | 2025-01-07 13:43 | WC ---
PHOTO-LLE 01/06/25
--- NOTE | 2025-01-07 13:44 | WC ---
PHOTO-RLE 01/06/25
--- NOTE | 2025-01-09 12:08 | PCM.WC.HP ---
History of Present Illness Date of Service: 01/06/25 Chief Complaint: Swelling, edema, and venous stasis dermatitis of the lower extremities bilaterally History of Wound: This is an 82-year-old female who presented with chronic venous stasis dermatitis in the lower extremities bilaterally. This had been associated with bilateral swelling and edema in her lower extremities which was chronic in nature. At the time of her initial presentation, the patient had no open wounds or ulcerations. She was recently treated for cellulitis with courses of oral antibiotics, including Keflex and doxycycline. The patient is not active. She is obese. She sleeps in an upright position in a chair. She denies a history of thrombophlebitis. She indicates that she has frequent episodes of cellulitis in her lower extremities. [facility] Medical History (Updated 01/09/25 @ 12:[address] Eliezer Iglesias MD) Lymphedema Lipodermatosclerosis Venous hypertension, chronic, with inflammation Edema of both legs Localized swelling of both lower legs Vitamin D deficiency Schatzki's ring Multiple thyroid nodules Diastolic congestive heart failure Bilateral carpal tunnel syndrome Anxiety and depression Difficulty swallowing IBS (irritable bowel syndrome) Nonadherence to medication Diabetes mellitus, type 2 Chest pain Obesity (BMI 35.0-39.9 without comorbidity) Edema of right lower extremity due to peripheral venous insufficiency Edema of left lower extremity due to peripheral venous insufficiency Venous stasis dermatitis Atrial fibrillation Overactive bladder Esophageal stricture Hearing deficit Tinnitus History of basal cell cancer Diaphragmatic hernia Diabetic neuropathy Aortic stenosis Hyperlipidemia Chronic venous insufficiency Osteoporosis Thrombocytopenia Metabolic acidosis Hypokalemia Gastroenteritis Acute kidney injury Hiatal hernia Dyslipidemia HTN (hypertension) GERD (gastroesophageal reflux disease) Esophageal spasm Home Medications ?Medication ?Instructions ?Recorded ?Last Taken ?Type metformin 500 mg tablet 500 mg PO UD diabetes 07/05/17 08/20/24 History hydrochlorothiazide 25 mg tablet 25 mg PO DAILY diuretic 04/01/18 07/29/23 05:00 History nitroglycerin 0.4 mg sublingual 0.4 mg sublingual Q5M 10/10/22 Unknown History tablet (Nitrostat) sitagliptin phosphate 100 mg 100 mg PO DAILY blood sugar 10/10/22 07/29/23 History tablet (Januvia) lisinopril 40 mg tablet 40 mg PO BID 04/22/24 08/20/24 History meclizine 25 mg chewable tablet 25 mg PO TID PRN dizziness #10 tabs 08/21/24 Unknown Rx (Antivert) Held on 12/30/24. Instructions: not taking anymore per patient alendronate 70 mg tablet 70 mg PO .weekly 10/10/24 Unknown History cholecalciferol (vitamin D3) 50 150 mcg PO QDAY 10/10/24 Unknown History mcg (2,000 unit) capsule furosemide 40 mg tablet 40 mg PO DAILY PRN PRN edema 10/10/24 Unknown History glimepiride 4 mg tablet 4 mg PO QPM 10/10/24 Unknown History acetaminophen 500 mg tablet 500 mg PO Q6H PRN pain 10/29/24 Unknown History (Tylenol Extra Strength) buspirone 5 mg tablet 5 mg PO BID 10/29/24 Unknown History carvedilol 12.5 mg tablet 12.5 mg PO BID #180 tabs 10/29/24 Unknown Rx sertraline 50 mg tablet 50 mg PO QDAY 10/29/24 Unknown History Allergy/AdvReac Type Severity Reaction Status Date / Time codeine Allergy Intermediate Rash Verified 12/30/24 12:23 niacin Allergy Intermediate Rash Verified 12/30/24 12:23 Penicillins Allergy Intermediate Rash Verified 12/30/24 12:23 pioglitazone Allergy Intermediate leg edema Verified 12/30/24 12:23 & CHF prednisone Allergy Intermediate Rash Verified 12/30/24 12:23 acetaminophen (From Vicodin) Allergy Other Verified 10/29/24 11:27 celecoxib (From Celebrex) Allergy Unknown Verified 12/30/24 12:23 hydrocodone (From Vicodin) Allergy Other Verified 10/29/24 11:27 morphine Allergy Other Verified 10/29/24 11:27 Sulfa (Sulfonamide Allergy Rash Verified 12/30/24 12:23 Antibiotics) Family History Mother Asthma Heart disease Father Heart disease Hypertension Arthritis Alzheimer dementia Grandmother Hypertension CVA (cerebral vascular accident) Grandfather CVA (cerebral vascular accident) Brother Hypertension Diabetes Surgical History history ORIF left wrist History of esophageal dilatation History of tonsillectomy History of nasal surgery History of surgery on left wrist History of cholecystectomy History repair broken nose History of laparoscopic cholecystectomy Social History Smoking Status: Never smoker alcohol intake: never substance use type: does not use Physical Exam Const alert, oriented x3, no apparent distress and no limitations Constitutional Narrative: The patient is obese. Her BMI is 38.6. General Appearance: cooperative, comfortable and well developed Orientation / Consciousness: awake, oriented to person, oriented to place and oriented to time Exam Limitations: no limitations HEENT normocephalic and head/scalp atraumatic Head and Scalp: normal to inspection, normocephalic and atraumatic Nose: external nose normal External Ear: external ears normal Eyes EOMs intact bilaterally General Eye: normal appearance of both eyes Resp normal respiratory effort, normal air movement, no retractions and no use of accessory muscles Effort and Inspection: able to speak in complete sentences Extremity no calf tenderness General Extremity: Negative for clubbing or cyanosis Skin Wound Narrative: Minimal swelling and edema are noted in the patient's lower extremities bilaterally. Venous stasis dermatitis of the lower extremities appears improved, with a decrease in the amount of erythema. However, the cobblestone appearance and lipodermatosclerosis persist. There are no open wounds or ulcerations. Circumference measurements are as documented elsewhere. Neuro oriented x3, CN's II-XII intact bilaterally, moves all extremities and no focal motor deficits Sensorium / Orientation: awake and alert Speech: speech normal Psych Appearance: grossly normal and appropriate Attitude: calm Activity / Motor Behavior: appropriate eye contact Speech: normal speech Mood & Affect: euthymic mood Attention / Concentration: attention grossly intact Debridement Note Debridement Note No debridement was completed: No debridement was completed today Post-Debridement Measurements and Additional Note: Post-Debridement Measurements/Treatment - Nurse 1 - General Ulcer Assessment Start: 01/02/25 10:28 Freq: Status: Active Protocol: CORRINA.LEI Activity Type Activity Date Activity User E-sign Co-sign Detail Recorded Client Recorded Date Recorded By Document 01/02/25 10:28 JF [id number] 01/02/25 10:30 JF Document 01/06/25 10:18 RB [id number] 01/06/25 10:24 RB Document 01/09/25 08:42 ML [id number] 01/09/25 08:43 ML 01/02/25 01/06/25 01/09/25 10:28 10:18 08:42 - Today's Visit Information Type of service Nurse-only Follow-up Visit Nurse-only Visit (Physician/CHIEF TECHNICIAN X RAY Visit ) Arrival Mode Ambulatory,Cane Ambulatory Ambulatory,Cane Transfer Assistance None None Patient Identification Verified (Name & Yes Yes Yes ) Patient Requires Transmission-Based No No No Precautions Vital Signs Temperature (97.8 F-99.1 F) 96.8 F L 97.8 F Temperature Source Temporal Temporal Pulse Rate (60-100) 86 80 Pulse Location Monitor Monitor Respiratory Rate (12-18) 18 18 Respiratory rate source Observation Observation Blood Pressure (90/60-120/80) 170/94 H 150/68 H Blood Pressure Mean 119 95 Source Monitor Monitor Position Semi-Fowlers Semi-Fowlers Blood Pressure Location Right Forearm Left Arm History Since Last Visit- (Skip if this is Patient's initial visit) Have you changed medications since your Yes No last visit? Any new allergies or adverse reactions No No Had a fall/change in ADL's that may No No increase risk of falls Signs or symptoms of abuse and/or No No neglect since last visit Have you been in the hospital since your No No last visit? Has dressing in place as prescribed Yes Yes Has compression in place as prescribed Yes Yes Has offloadiing in place as prescribed N/A N/A Experienced any changes in pain level or No No management Left Footwear Regular Shoe Regular Shoe Right Footwear Regular Shoe Regular Shoe Pain Scale: 0-10 Numeric Is Patient Pain Free? Yes Yes Yes - Nurse 1 - General Ulcer Measurement Start: 01/02/25 10:28 Freq: Status: Active Protocol: Activity Type Activity Date Activity User E-sign Co-sign Detail Recorded Client Recorded Date Recorded By Document 01/02/25 10:28 JF [id number] 01/02/25 10:30 JF Document 01/06/25 10:18 RB [id number] 01/06/25 10:24 RB 01/02/25 01/06/25 10:28 10:18 Wound Center Nurse 1 2-left leg -Combined with other wound No -Current Size (cm) - Length 0.1 -Current Size (cm) - Width 0.1 -Current Size (cm) - Depth 0.1 -Total Square Cm 0.01 -Photo Taken Yes -Tunneling No -Undermining/Tunneling No -Circular Undermining No -Exudate Amt Medium -Exudate Type Serosanguineous -Wound Margin Distinct, Outline Attached -Granulation Amt Medium (34-66%) -Granulation Quality Amoret -Slough/Fibrin Yes -Necrosis Amt Medium (34-66%) -Necrotic Tissue Type Adherent Slough -Structure Exposed N/A -Texture (Marisela-wound Skin Appearance) Assessed -Moisture (Marisela-wound Skin Appearance) Assessed -Color (Marisela-wound Skin Appearance) Assessed, Hemosiderin Staining -Temperature (Marisela-wound Skin No Abnormality Appearance) (Pt Warm) -Tenderness on Palpation (Marisela-wound No Skin Appearance) -Ulcer Cleansing Wound Cleanser -Foul Odor after Cleansing No -Anesthetic Used 5% Lidocaine Gel #1 right leg -Combined with other wound No -Current Size (cm) - Length 0.1 -Current Size (cm) - Width 0.1 -Current Size (cm) - Depth 0.1 -Total Square Cm 0.01 -Photo Taken Yes -Tunneling No -Undermining/Tunneling No -Circular Undermining No -Exudate Amt Medium -Exudate Type Serosanguineous -Wound Margin Distinct, Outline Attached -Granulation Amt Medium (34-66%) -Granulation Quality Amoret -Slough/Fibrin Yes -Necrosis Amt Medium (34-66%) -Necrotic Tissue Type Adherent Slough -Structure Exposed N/A -Texture (Marisela-wound Skin Appearance) Assessed -Moisture (Marisela-wound Skin Appearance) Assessed -Color (Marisela-wound Skin Appearance) Assessed, Hemosiderin Staining -Temperature (Marisela-wound Skin No Abnormality Appearance) (Pt Warm) -Tenderness on Palpation (Marisela-wound No Skin Appearance) -Ulcer Cleansing Wound Cleanser -Foul Odor after Cleansing No -Anesthetic Used 5% Lidocaine Gel Lower Limb Edema Present Yes Yes Right Calf (cm) 36.8 36 Right Ankle (cm) 22.2 21.8 Left Calf (cm) 39.2 37.5 Left Ankle (cm) 23.3 21.3 WC - Nurse 2 - General Ulcer CM Notes Start: 01/02/25 10:28 Freq: Status: Active Protocol: Activity Type Activity Date Activity User E-sign Co-sign Detail Recorded Client Recorded Date Recorded By Document 01/06/25 10:27 DS [id number] 01/06/25 10:29 DS 01/06/25 10:27 Wound Center Nurse 2 2-left leg -Time 10:27 -Correct Patient Yes -Correct Side, Site, Position Yes -Procedure Performed No -Wound/Ulcer Outcome Not Healed #1 right leg -Time 10:27 -Correct Patient Yes -Correct Side, Site, Position Yes -Procedure Performed No -Wound/Ulcer Outcome Not Healed Pain Scale: 0-10 Numeric Is Patient Pain Free? Yes WC - Nurse 3 - General Ulcer D/C NN Start: 01/02/25 10:28 Freq: Status: Active Protocol: Activity Type Activity Date Activity User E-sign Co-sign Detail Recorded Client Recorded Date Recorded By Document 01/02/25 10:28 JF [id number] 01/02/25 10:30 JF Document 01/06/25 10:59 RB [id number] 01/06/25 11:00 RB Document 01/09/25 08:42 ML [id number] 01/09/25 08:43 ML 01/02/25 01/06/25 01/09/25 10:28 10:59 08:42 Pain Scale: 0-10 Numeric Is Patient Pain Free? Yes Yes Yes Wound Care Center Nurse 3 BLE -Multi-Layered Wrap Application Unna Boot - Unna Boot - Unna Boot - Bilateral Bilateral Bilateral -Unna- Bilat (Qty applied) 1 1 1 Treatment Response Procedure Tolerated Well WC - Visit Discharge Discharge Condition Stable Stable Ambulatory Status Ambulatory,Cane Ambulatory,Cane Transportation Private Auto Private Auto Medication Reconcilliation completed & Yes No provided to patient/care provider Clinical Summary of Care Provided Yes Yes Charges/Coding Visit Charges Office Visits / Consults: [id number] OV L3 Est 20min Assessment/Plan Assessment/Plan (1) Venous stasis dermatitis: CODE(S): I87.2 - Venous insufficiency (chronic) (peripheral) (2) Chronic venous insufficiency: CODE(S): I87.2 - Venous insufficiency (chronic) (peripheral) (3) Venous hypertension, chronic, with inflammation: CODE(S): I87.329 - Chronic venous hypertension (idiopathic) with inflammation of unspecified lower extremity QUALIFIERS: Laterality: bilateral Qualified Code(s): I87.323 - Chronic venous hypertension (idiopathic) with inflammation of bilateral lower extremity (4) Lymphedema: CODE(S): I89.0 - Lymphedema, not elsewhere classified (5) Localized swelling of both lower legs: CODE(S): R22.43 - Localized swelling, mass and lump, lower limb, bilateral (6) Edema of both legs: CODE(S): R60.0 - Localized edema (7) Lipodermatosclerosis: CODE(S): M79.3 - Panniculitis, unspecified (8) Edema of right lower extremity due to peripheral venous insufficiency: CODE(S): I87.2 - Venous insufficiency (chronic) (peripheral) (9) Edema of left lower extremity due to peripheral venous insufficiency: CODE(S): I87.2 - Venous insufficiency (chronic) (peripheral) (10) Diabetes mellitus, type 2: CODE(S): E11.9 - Type 2 diabetes mellitus without complications (11) Obesity (BMI 35.0-39.9 without comorbidity): CODE(S): E66.9 - Obesity, unspecified (12) Schatzki's ring: CODE(S): K22.2 - Esophageal obstruction (13) Diastolic congestive heart failure: CODE(S): I50.30 - Unspecified diastolic (congestive) heart failure (14) Bilateral carpal tunnel syndrome: CODE(S): G56.03 - Carpal tunnel syndrome, bilateral upper limbs (15) Osteoporosis: CODE(S): M81.0 - Age-related osteoporosis without current pathological fracture (16) Difficulty swallowing: CODE(S): R13.10 - Dysphagia, unspecified (17) IBS (irritable bowel syndrome): CODE(S): K58.9 - Irritable bowel syndrome, unspecified (18) Nonadherence to medication: CODE(S): Z91.148 - Patient's other noncompliance with medication regimen for other reason (19) History of esophageal dilatation: CODE(S): Z98.890 - Other specified postprocedural states (20) History of tonsillectomy: CODE(S): Z90.89 - Acquired absence of other organs (21) History of nasal surgery: CODE(S): Z98.890 - Other specified postprocedural states (22) History of surgery on left wrist: CODE(S): Z98.890 - Other specified postprocedural states (23) History of cholecystectomy: CODE(S): Z90.49 - Acquired absence of other specified parts of digestive tract (24) Atrial fibrillation: CODE(S): I48.91 - Unspecified atrial fibrillation (25) Hearing deficit: CODE(S): H91.90 - Unspecified hearing loss, unspecified ear (26) Esophageal stricture: CODE(S): K22.2 - Esophageal obstruction (27) History of basal cell cancer: CODE(S): Z85.828 - Personal history of other malignant neoplasm of skin (28) Diaphragmatic hernia: CODE(S): K44.9 - Diaphragmatic hernia without obstruction or gangrene (29) Diabetic neuropathy: CODE(S): E11.40 - Type 2 diabetes mellitus with diabetic neuropathy, unspecified (30) Aortic stenosis: CODE(S): I35.0 - Nonrheumatic aortic (valve) stenosis (31) Hyperlipidemia: CODE(S): E78.5 - Hyperlipidemia, unspecified (32) GERD (gastroesophageal reflux disease): CODE(S): K21.9 - Gastro-esophageal reflux disease without esophagitis QUALIFIERS: Esophagitis presence: esophagitis presence not specified Qualified Code(s): K21.9 - Gastro-esophageal reflux disease without esophagitis (33) HTN (hypertension): CODE(S): I10 - Essential (primary) hypertension QUALIFIERS: Hypertension type: unspecified secondary hypertension Qualified Code(s): I15.9 - Secondary hypertension, unspecified; I15 - Secondary hypertension (34) Dyslipidemia: CODE(S): E78.5 - Hyperlipidemia, unspecified (35) Hiatal hernia: CODE(S): K44.9 - Diaphragmatic hernia without obstruction or gangrene PLAN: Plan This is an 84-year-old female who presented with symptoms of chronic venous insufficiency, venous hypertension with inflammation, venous stasis dermatitis, and lymphedema in her lower extremities bilaterally. At present, there are no open ulcerations. The patient has been previously treated at the [facility] for similar symptoms and manifestations. It appears as though the patient has recently been noncompliant with recommended conservative treatment measures. The patient has now been counseled to elevate her lower extremities as much as possible. She has been encouraged to sleep on a flat surface at night. She has also been advised to elevate her lower extremities as much as possible during daytime hours. Leg elevation is to be to heart level, or higher. Prolonged idle sitting has been discouraged. Activity/ambulation has been encouraged, though significant enhancement of the patient's activity level is unlikely, given her defunctionalized state. We are to continue the use of Unna compression wraps bilaterally, which are to be changed twice weekly. We are to forward the patient's circumference measurements to her DME provider in an attempt to procure CircAid Velcro compression garments for the patient. It is hoped that the patient can be discharged in the near future. The patient is to return in 1 week for reevaluation. Total time: 24 minutes
[2025-01-13 14:17] VITALS: BP 168/100; PULSE 80; RESP 18; TEMP 36.5
--- NOTE | 2025-01-14 14:29 | WC ---
PHOTO-LLE 01/13/25
--- NOTE | 2025-01-14 14:31 | WC ---
PHOTO-RLE 01/13/25
--- NOTE | 2025-01-15 12:07 | HP.PCM_ITS ---
History of Present Illness Date of Service: 01/13/25 Chief Complaint: Swelling, edema, and venous stasis dermatitis of the lower extremities bilaterally History of Wound: This is an 82-year-old female who presented with chronic venous stasis dermatitis in the lower extremities bilaterally. This had been associated with bilateral swelling and edema in her lower extremities which was chronic in nature. At the time of her initial presentation, the patient had no open wounds or ulcerations. She was recently treated for cellulitis with courses of oral antibiotics, including Keflex and doxycycline. The patient is not active. She is obese. She sleeps in an upright position in a chair. She denies a history of thrombophlebitis. She indicates that she has had frequent episodes of cellulitis in her lower extremities. [facility] Medical History Lymphedema Lipodermatosclerosis Venous hypertension, chronic, with inflammation Edema of both legs Localized swelling of both lower legs Vitamin D deficiency Schatzki's ring Multiple thyroid nodules Diastolic congestive heart failure Bilateral carpal tunnel syndrome Anxiety and depression Difficulty swallowing IBS (irritable bowel syndrome) Nonadherence to medication Diabetes mellitus, type 2 Chest pain Obesity (BMI 35.0-39.9 without comorbidity) Edema of right lower extremity due to peripheral venous insufficiency Edema of left lower extremity due to peripheral venous insufficiency Venous stasis dermatitis Atrial fibrillation Overactive bladder Esophageal stricture Hearing deficit Tinnitus History of basal cell cancer Diaphragmatic hernia Diabetic neuropathy Aortic stenosis Hyperlipidemia Chronic venous insufficiency Osteoporosis Thrombocytopenia Metabolic acidosis Hypokalemia Gastroenteritis Acute kidney injury Hiatal hernia Dyslipidemia HTN (hypertension) GERD (gastroesophageal reflux disease) Esophageal spasm Home Medications ?Medication ?Instructions ?Recorded ?Last Taken ?Type metformin 500 mg tablet 500 mg PO UD diabetes 08/20/24 History hydrochlorothiazide 25 mg tablet 25 mg PO DAILY diuret ic 04/01/18 07/29/23 05:00 History nitroglycerin 0.4 mg sublingual 0.4 mg sublingual Q5M 10/10/22 Unknown History tablet (Nitrostat) sitagliptin phosphate 100 mg 100 mg PO DAILY blood sug ar 10/10/22 07/29/23 History tablet (Januvia) lisinopril 40 mg tablet 40 mg PO BID 04/22/24 History meclizine 25 mg chewable tablet 25 mg PO TID PRN dizzi ness #10 tabs 08/21/24 Unknown Rx (Antivert) Held on 12/30/24. Instructions: not taking anymore per patient alendronate 70 mg tablet 70 mg PO .weekly 10/10/24 Un known History cholecalciferol (vitamin D3) 50 150 mcg PO QDAY Unknown History mcg (2,000 unit) capsule furosemide 40 mg tablet 40 mg PO DAILY PRN PRN edema 10/10/24 Unknown History glimepiride 4 mg tablet 4 mg PO QPM 10/10/24 Unknown History acetaminophen 500 mg tablet 500 mg PO Q6H PRN pain Unknown History (Tylenol Extra Strength) buspirone 5 mg tablet 5 mg PO BID 10/29/24 Unknown History carvedilol 12.5 mg tablet 12.5 mg PO BID #180 tabs Unknown Rx sertraline 50 mg tablet 50 mg PO QDAY 10/29/24 Unkno wn History Allergy/AdvReac Type Severity Reaction Status Date / Time codeine Allergy Intermediate Rash Verified 12/30/24 12:23 niacin Allergy Intermediate Rash Verified 12/30/24 12:23 Penicillins Allergy Intermediate Rash Verified 12/30/24 12:23 pioglitazone Allergy Intermediate leg edema Verified 12/30/24 12:23 & CHF prednisone Allergy Intermediate Rash Verified 12/30/24 12:23 acetaminophen (From Vicodin) Allergy Other Verified 10/29/24 11:27 celecoxib (From Celebrex) Allergy Unknown Verified 12/30/24 12:23 hydrocodone (From Vicodin) Allergy Other Verified 10/29/24 11:27 morphine Allergy Other Verified 10/29/24 11:27 Sulfa (Sulfonamide Allergy Rash Verified 12/30/24 12:23 Antibiotics) Family History Mother Asthma Heart disease Father Heart disease Hypertension Arthritis Alzheimer dementia Grandmother Hypertension CVA (cerebral vascular accident) Grandfather CVA (cerebral vascular accident) Brother Hypertension Diabetes Surgical History history ORIF left wrist History of esophageal dilatation History of tonsillectomy History of nasal surgery History of surgery on left wrist History of cholecystectomy History repair broken nose History of laparoscopic cholecystectomy Social History Smoking Status: Never smoker alcohol intake: never substance use type: does not use Physical Exam Const alert, oriented x3, no apparent distress and no limitations Constitutional Narrative: The patient is obese. Her BMI is 38.6. General Appearance: cooperative, comfortable and well developed Orientation / Consciousness: awake, oriented to person, oriented to place and oriented to time Exam Limitations: no limitations HEENT normocephalic and head/scalp atraumatic Head and Scalp: normal to inspection, normocephalic and atraumatic Nose: external nose normal External Ear: external ears normal Eyes EOMs intact bilaterally General Eye: normal appearance of both eyes Resp normal respiratory effort, normal air movement, no retractions and no use of accessory muscles Effort and Inspection: able to speak in complete sentences Extremity no calf tenderness General Extremity: Negative for clubbing or cyanosis Skin Wound Narrative: Mild swelling and edema are noted in the patient's lower extremities bilaterally. Venous stasis dermatitis of the lower extremities appears improved, with a decrease in the amount of erythema and scaling. However, the cobblestone appearance and lipodermatosclerosis persist. There are no open wounds or ulcerations. Circumference measurements are as documented elsewhere. Neuro oriented x3, CN's II-XII intact bilaterally, moves all extremities and no focal motor deficits Sensorium / Orientation: awake and alert Speech: speech normal Psych Appearance: grossly normal and appropriate Attitude: calm Activity / Motor Behavior: appropriate eye contact Speech: normal speech Mood & Affect: euthymic mood Attention / Concentration: attention grossly intact Debridement Note Debridement Note No debridement was completed: No debridement was completed today Post-Debridement Measurements and Additional Note: Post-Debridement Measurements/Treatment WC - Nurse 1 - General Ulcer Assessment Start: 01/02/25 10:28 Freq: Status: Active Protocol: CORRINA.LEI Activity Type Activity Date Activity User E-sign Co-sign Detail Recorded Client Recorded Date Recorded By Document 01/02/25 10:28 JF [id number] 01/02/25 10:30 JF Document 01/06/25 10:18 RB [id number] 01/06/25 10:24 RB Document 01/09/25 08:42 ML [id number] 01/09/25 08:43 ML Document 01/13/25 14:17 RB [id number] 01/13/25 14:27 RB 01/02/25 01/06/25 01/09/25 10:28 10:18 08:42 [facility]'s Visit Information Type of service Nurse-only Follow-up Visit Nurse-only Visit (Physician/POWER HOUSE ENGINEER Visit ) Arrival Mode Ambulatory,Cane Ambulatory Ambulatory,Cane Transfer Assistance None None Patient Identification Verified (Name & Yes Yes Yes ) Patient Requires Transmission-Based No No No Precautions Vital Signs Temperature (97.8 F-99.1 F) 96.8 F L 97.8 F Temperature Source Temporal Temporal Pulse Rate (60-100) 86 80 Pulse Location Monitor Monitor Respiratory Rate (12-18) 18 18 Respiratory rate source Observation Observation Blood Pressure (90/60-120/80) 170/94 H 150/68 H Blood Pressure Mean 119 95 Source Monitor Monitor Position Semi-Fowlers Semi-Fowlers Blood Pressure Location Right Forearm Left Arm History Since Last Visit- (Skip if this is Patient's initial visit) Have you changed medications since your Yes No last visit? Any new allergies or adverse reactions No No Had a fall/change in ADL's that may No No increase risk of falls Signs or symptoms of abuse and/or No No neglect since last visit Have you been in the hospital since your No No last visit? Has dressing in place as prescribed Yes Yes Has compression in place as prescribed Yes Yes Has offloadiing in place as prescribed N/A N/A Experienced any changes in pain level or No No management Left Footwear Regular Shoe Regular Shoe Right Footwear Regular Shoe Regular Shoe Pain Scale: 0-10 Numeric Is Patient Pain Free? Yes Yes Yes 01/13/25 14:17 [facility]'s Visit Information Type of service Follow-up Visit (Physician/POWER HOUSE ENGINEER ) Arrival Mode Ambulatory,Cane Transfer Assistance None Patient Identification Verified (Name & Yes ) Patient Requires Transmission-Based No Precautions Vital Signs Temperature (97.8 F-99.1 F) 97.7 F L Temperature Source Temporal Pulse Rate (60-100) 80 Pulse Location Monitor Respiratory Rate (12-18) 18 Respiratory rate source Observation Blood Pressure (90/60-120/80) 168/100 H Blood Pressure Mean 122 Source Monitor Position Sitting Blood Pressure Location Left Arm History Since Last Visit- (Skip if this is Patient's initial visit) Have you changed medications since your No last visit? Any new allergies or adverse reactions No Had a fall/change in ADL's that may No increase risk of falls Signs or symptoms of abuse and/or No neglect since last visit Have you been in the hospital since your No last visit? Has dressing in place as prescribed Yes Has compression in place as prescribed Yes Has offloadiing in place as prescribed N/A Experienced any changes in pain level or No management Left Footwear Regular Shoe Right Footwear Regular Shoe Pain Scale: 0-10 Numeric Is Patient Pain Free? Yes WC - Nurse 1 - General Ulcer Measurement Start: 01/02/25 10:28 Freq: Status: Active Protocol: Activity Type Activity Date Activity User E-sign Co-sign Detail Recorded Client Recorded Date Recorded By Document 01/02/25 10:28 JF [id number] 01/02/25 10:30 JF Document 01/06/25 10:18 RB [id number] 01/06/25 10:24 RB Document 01/13/25 14:17 RB [id number] 01/13/25 14:27 RB 01/02/25 01/06/25 01/13/25 10:28 10:18 14:17 Wound Center Nurse 1 2-left leg -Combined with other wound No No -Current Size (cm) - Length 0.1 0 -Current Size (cm) - Width 0.1 0 -Current Size (cm) - Depth 0.1 0 -Total Square Cm 0.01 0 -Photo Taken Yes Yes -Epithelialization Large 67-100% -Tunneling No -Undermining/Tunneling No -Circular Undermining No -Exudate Amt Medium -Exudate Type Serosanguineous -Wound Margin Distinct, Outline Attached -Granulation Amt Medium (34-66%) -Granulation Quality [place] -Slough/Fibrin Yes -Necrosis Amt Medium (34-66%) -Necrotic Tissue Type Adherent Slough -Structure Exposed N/A -Texture (Marisela-wound Skin Appearance) Assessed -Moisture (Marisela-wound Skin Appearance) Assessed -Color (Marisela-wound Skin Appearance) Assessed, Hemosiderin Staining -Temperature (Marisela-wound Skin No Abnormality Appearance) (Pt Warm) -Tenderness on Palpation (Marisela-wound No Skin Appearance) -Ulcer Cleansing Wound Cleanser -Foul Odor after Cleansing No -Anesthetic Used 5% Lidocaine Gel #1 right leg -Combined with other wound No No -Current Size (cm) - Length 0.1 0 -Current Size (cm) - Width 0.1 0 -Current Size (cm) - Depth 0.1 0 -Total Square Cm 0.01 0 -Photo Taken Yes Yes -Epithelialization Large 67-100% -Tunneling No -Undermining/Tunneling No -Circular Undermining No -Exudate Amt Medium -Exudate Type Serosanguineous -Wound Margin Distinct, Outline Attached -Granulation Amt Medium (34-66%) -Granulation Quality [place] -Slough/Fibrin Yes -Necrosis Amt Medium (34-66%) -Necrotic Tissue Type Adherent Slough -Structure Exposed N/A -Texture (Marisela-wound Skin Appearance) Assessed -Moisture (Marisela-wound Skin Appearance) Assessed -Color (Marisela-wound Skin Appearance) Assessed, Hemosiderin Staining -Temperature (Marisela-wound Skin No Abnormality Appearance) (Pt Warm) -Tenderness on Palpation (Marisela-wound No Skin Appearance) -Ulcer Cleansing Wound Cleanser -Foul Odor after Cleansing No -Anesthetic Used 5% Lidocaine Gel Lower Limb Edema Present Yes Yes Yes Right Calf (cm) 36.8 36 36.5 Right Ankle (cm) 22.2 21.8 21.6 Left Calf (cm) 39.2 37.5 36.3 Left Ankle (cm) 23.3 21.3 22 WC - Nurse 2 - General Ulcer CM Notes Start: 01/02/25 10:28 Freq: Status: Active Protocol: Activity Type Activity Date Activity User E-sign Co-sign Detail Recorded Client Recorded Date Recorded By Document 01/06/25 10:27 DS [id number] 01/06/25 10:29 DS 01/06/25 10:27 Wound Center Nurse 2 2-left leg -Time 10:27 -Correct Patient Yes -Correct Side, Site, Position Yes -Procedure Performed No -Wound/Ulcer Outcome Not Healed #1 right leg -Time 10:27 -Correct Patient Yes -Correct Side, Site, Position Yes -Procedure Performed No -Wound/Ulcer Outcome Not Healed Pain Scale: 0-10 Numeric Is Patient Pain Free? Yes - Nurse 3 - General Ulcer D/C NN Start: 01/02/25 10:28 Freq: Status: Active Protocol: Activity Type Activity Date Activity User E-sign Co-sign Detail Recorded Client Recorded Date Recorded By Document 01/02/25 10:28 JF [id number] 01/02/25 10:30 JF Document 01/06/25 10:59 RB [id number] 01/06/25 11:00 RB Document 01/09/25 08:42 ML [id number] 01/09/25 08:43 ML Document 01/13/25 15:10 JF [id number] 01/13/25 15:10 JF 01/02/25 01/06/25 01/09/25 10:28 10:59 08:42 Pain Scale: 0-10 Numeric Is Patient Pain Free? Yes Yes Yes Wound Care Center Nurse 3 BLE -Multi-Layered Wrap Application Unna Boot - Unna Boot - Unna Boot - Bilateral Bilateral Bilateral -Unna- Bilat (Qty applied) 1 1 1 Treatment Response Procedure Tolerated Well WC - Visit Discharge Discharge Condition Stable Stable Ambulatory Status Ambulatory,Cane Ambulatory,Cane Transportation Private Auto Private Auto Medication Reconcilliation completed & Yes No provided to patient/care provider Clinical Summary of Care Provided Yes Yes 01/13/25 15:10 Pain Scale: 0-10 Numeric Is Patient Pain Free? Yes Wound Care Center Nurse 3 BLE -Multi-Layered Wrap Application Unna Boot - Bilateral -Unna- Bilat (Qty applied) 2 Treatment Response WC - Visit Discharge Discharge Condition Stable Ambulatory Status Ambulatory,Cane Transportation Private Auto Medication Reconcilliation completed & Yes provided to patient/care provider Clinical Summary of Care Provided Yes Charges/Coding Visit Charges Office Visits / Consults: [id number] OV L3 Est 20min Assessment/Plan Assessment/Plan (1) Venous stasis dermatitis: CODE(S): I87.2 - Venous insufficiency (chronic) (peripheral) (2) Chronic venous insufficiency: CODE(S): I87.2 - Venous insufficiency (chronic) (peripheral) (3) Venous hypertension, chronic, with inflammation: CODE(S): I87.329 - Chronic venous hypertension (idiopathic) with inflammation of unspecified lower extremity QUALIFIERS: Laterality: bilateral Qualified Code(s): I87.323 - Chronic venous hypertension (idiopathic) with inflammation of bilateral lower extremity (4) Lymphedema: CODE(S): I89.0 - Lymphedema, not elsewhere classified (5) Localized swelling of both lower legs: CODE(S): R22.43 - Localized swelling, mass and lump, lower limb, bilateral (6) Edema of both legs: CODE(S): R60.0 - Localized edema (7) Lipodermatosclerosis: CODE(S): M79.3 - Panniculitis, unspecified (8) Edema of right lower extremity due to peripheral venous insufficiency: CODE(S): I87.2 - Venous insufficiency (chronic) (peripheral) (9) Edema of left lower extremity due to peripheral venous insufficiency: CODE(S): I87.2 - Venous insufficiency (chronic) (peripheral) (10) Diabetes mellitus, type 2: CODE(S): E11.9 - Type 2 diabetes mellitus without complications (11) Obesity (BMI 35.0-39.9 without comorbidity): CODE(S): E66.9 - Obesity, unspecified (12) Schatzki's ring: CODE(S): K22.2 - Esophageal obstruction (13) Diastolic congestive heart failure: CODE(S): I50.30 - Unspecified diastolic (congestive) heart failure (14) Bilateral carpal tunnel syndrome: CODE(S): G56.03 - Carpal tunnel syndrome, bilateral upper limbs (15) Osteoporosis: CODE(S): M81.0 - Age-related osteoporosis without current pathological fracture (16) Difficulty swallowing: CODE(S): R13.10 - Dysphagia, unspecified (17) IBS (irritable bowel syndrome): CODE(S): K58.9 - Irritable bowel syndrome, unspecified (18) Nonadherence to medication: CODE(S): Z91.148 - Patient's other noncompliance with medication regimen for other reason (19) History of esophageal dilatation: CODE(S): Z98.890 - Other specified postprocedural states (20) History of tonsillectomy: CODE(S): Z90.89 - Acquired absence of other organs (21) History of nasal surgery: CODE(S): Z98.890 - Other specified postprocedural states (22) History of surgery on left wrist: CODE(S): Z98.890 - Other specified postprocedural states (23) History of cholecystectomy: CODE(S): Z90.49 - Acquired absence of other specified parts of digestive tract (24) Atrial fibrillation: CODE(S): I48.91 - Unspecified atrial fibrillation (25) Hearing deficit: CODE(S): H91.90 - Unspecified hearing loss, unspecified ear (26) Esophageal stricture: CODE(S): K22.2 - Esophageal obstruction (27) History of basal cell cancer: CODE(S): Z85.828 - Personal history of other malignant neoplasm of skin (28) Diaphragmatic hernia: CODE(S): K44.9 - Diaphragmatic hernia without obstruction or gangrene (29) Diabetic neuropathy: CODE(S): E11.40 - Type 2 diabetes mellitus with diabetic neuropathy, unspecified (30) Aortic stenosis: CODE(S): I35.0 - Nonrheumatic aortic (valve) stenosis (31) Hyperlipidemia: CODE(S): E78.5 - Hyperlipidemia, unspecified (32) GERD (gastroesophageal reflux disease): CODE(S): K21.9 - Gastro-esophageal reflux disease without esophagitis QUALIFIERS: Esophagitis presence: esophagitis presence not specified Qualified Code(s): K21.9 - Gastro-esophageal reflux disease without esophagitis (33) HTN (hypertension): CODE(S): I10 - Essential (primary) hypertension QUALIFIERS: Hypertension type: unspecified secondary hypertension Qualified Code(s): I15.9 - Secondary hypertension, unspecified; I15 - Secondary hypertension (34) Dyslipidemia: CODE(S): E78.5 - Hyperlipidemia, unspecified (35) Hiatal hernia: CODE(S): K44.9 - Diaphragmatic hernia without obstruction or gangrene PLAN: Plan This is an 84-year-old female who presented with symptoms of chronic venous insufficiency, venous hypertension with inflammation, venous stasis dermatitis, and lymphedema in her lower extremities bilaterally. At present, there are no open ulcerations. The patient has been previously treated at the [facility] for similar symptoms and manifestations. It appears as though the patient has recently been noncompliant with recommended conservative treatment measures. The patient has repeatedly been counseled to elevate her lower extremities as much as possible. She has been encouraged to sleep on a flat surface at night. She has also been advised to elevate her lower extremities as much as possible during daytime hours. Leg elevation is to be to heart level, or higher. Prolonged idle sitting has been discouraged. Activity/ambulation has been encouraged, though significant enhancement of the patient's activity level is unlikely, given her defunctionalized state. We are to continue the use of Unna compression wraps bilaterally, which are to be changed twice weekly. The patient's lower extremity circumference measurements were recently provided to her DME provider in order to obtain CircAid Velcro compression garments. The CircAid garments were delivered to the patient's residence. However, the patient was unaware of the contents of the package, and interpreted it as a scam. Thus, she rejected the delivery. Thus, she does not yet possess the CircAid Velcro compression garment which have been ordered. Efforts will be made to arrange redelivery the compression garments. The patient is to return in 2 weeks, or sooner, once delivery of the patient's compression garments has been received. Discharge is anticipated once the patient has a means of long-term compression. Total time: 25 minutes
== END 2025-01-30 23:59 | disposition home or self-care (01) ==
LOC: WC 13:00
PROVIDERS: PCP Family Medicine; Referring Provider Family Medicine; Visit Provider Surgery
DX: I87.323 Chronic venous hypertension (idiopathic) with inflammation of bilateral lower extremity (principal); I11.0 Hypertensive heart disease with heart failure; I50.32 Chronic diastolic (congestive) heart failure; I48.91 Unspecified atrial fibrillation; E11.40 Type 2 diabetes mellitus with diabetic neuropathy, unspecified; E11.59 Type 2 diabetes mellitus with other circulatory complications; G56.03 Carpal tunnel syndrome, bilateral upper limbs; H91.90 Unspecified hearing loss, unspecified ear; Z91.148 Patient's other noncompliance with medication regimen for other reason; Z79.84 Long term (current) use of oral hypoglycemic drugs; R22.43 Localized swelling, mass and lump, lower limb, bilateral; I15.9 Secondary hypertension, unspecified; I35.0 Nonrheumatic aortic (valve) stenosis; M81.0 Age-related osteoporosis without current pathological fracture; Z68.38 Body mass index [BMI] 38.0-38.9, adult; K22.2 Esophageal obstruction; K21.9 Gastro-esophageal reflux disease without esophagitis; I87.2 Venous insufficiency (chronic) (peripheral); I89.0 Lymphedema, not elsewhere classified; E78.5 Hyperlipidemia, unspecified; K58.9 Irritable bowel syndrome, unspecified; K44.9 Diaphragmatic hernia without obstruction or gangrene; E66.9 Obesity, unspecified; Z83.3 Family history of diabetes mellitus; Z82.49 Family history of ischemic heart disease and other diseases of the circulatory system; R13.10 Dysphagia, unspecified; M79.3 Panniculitis, unspecified; Z85.828 Personal history of other malignant neoplasm of skin
CPT/HCPCS: 29580; 99212; 99213; G0463